=== PATIENT | male | born 1940 | race Caucasian/White ===

== ENCOUNTER 2016-07-08 06:31 | Inpatient (IN) | payer OTHER, MEDICARE ==
[~2016-07-08] VITALS: Ht 182.9 cm; Wt 108.9 kg
[~2016-07-08 06:31] MED LIST: ACETAMINOPHEN325 M3 PO; ADVAIR DISKUS 21 DSK INH; ADVAIR DISKUS1 UNIT INH; ALBUTEROL2.5 MG/3 M INH; ASPIR 8181 MG PO; ASPIRIN81 M4 PO; ATORVASTATIN CA40 MG PO; CAPTOPRIL12.5 MG PO; CARVEDILOL3.125 M1 PO; CLOPIDOGREL75 M1 PO; CLOPIDOGREL75 MG; COREG 6.256.25 MG PO; COREG3.125 MG PO; ENTRESTO 24 MG1 EACH PO; FLOMAX(MONOGRA0.4 MG PO; FLOMAX0.4 M1 PO; FUROSEMIDE20 M1 PO; FUROSEMIDE40 MG PO; GABAPENTIN400 MG PO; HYDROCODONE BIT1 T26 PO; IMDUR60 MG PO; ISOSORBIDE MONO60 MG PO; LASIX40 MG PO; LEVOTHYROXINE0.1 M1 PO; LEVOTHYROXINE0.1 MG PO; LIPITOR40 M1 PO; LISINOPRIL5 M1 PO; METOPROLOL TART50 MG PO; NEURONTIN800 M2 PO; NITROSTAT0.4 M1 SL; NITROSTAT0.4 MG SL; NORVASC 5MG TAB5 MG PO; PERCOCET 325 MG1 TA2 PO; PERCOCET 325 MG1 TA3 PO; PLAVIX 75MG TAB75 MG PO; PROAIR HFA8.5 GM INH; RANEXA 500MG500 MG PO; RANEXA500 M1 PO; SPIRIVA 18 MCG18 MCG INH; SPIRIVA18 MCG INH; SYMBICORT 160/41 PUF INH; TESSALON PERLE100 MG PO; VENTOLIN1 PUF INH
--- NOTE | 2016-07-08 06:36 | ED DYSPNEA/ASTHMA COMPLAINT ---
History of Present Illness General Chief Complaint: Dyspnea (COPD, CHF, Other) Stated Complaint: PT C/O SOB 02 SAT 86% Source: patient Exam Limitations: no limitations Vital Signs & Intake/Output Vital Signs & Intake/Output Vital Signs Date Time Temp Pulse Resp B/P B/P Pulse O2 O2 Flow FiO2 Mean Ox Delivery Rate 07/08 0851 98.2 69 20 108/60 94 Nasal 2.0L Cannula 07/08 0752 91 Nasal 0.5L Cannula 07/08 0726 98.7 69 20 110/62 94 Nasal 2.5L Cannula 07/08 0703 93 Nasal 2.0L Cannula 07/08 0652 97 Nasal 2.0L Cannula 07/08 0639 98.5 79 18 105/55 92 Nasal 2.0L Cannula Allergies Coded Allergies: NO KNOWN ALLERGIES (06/23/14) Reconcile Medications Acetaminophen 325 MG CAPSULE 1 CAP PO Q6 PRN PAIN (Reported) Albuterol Sulfate (Proair Hfa) 90 MCG HFA.AER.AD 2 PUF INH Q4 COPD Aspirin (Aspirin*) 81 MG TAB.CHEW 1 TAB PO DAILY heart (Reported) Atorvastatin Calcium (Lipitor) 40 MG TABLET 1 TAB PO DAILY cholesterol ( Reported) Budesonide/Formoterol Fumarate (Symbicort 160-4.5 Mcg Inhaler) 160 MCG-4.5 MCG/ ACTUATION HFA.AER.AD 2 PUF INH BID COPD (Reported) Carvedilol (Coreg) 3.125 MG TABLET 6.25 MG PO BID HEART Clopidogrel Bisulfate (Clopidogrel) 75 MG TABLET 1 TAB PO DAILY BLOOD THINNER (Reported) Furosemide 20 MG TABLET 20 MG PO Q48 fluid overload Gabapentin (Neurontin) 800 MG TABLET 1 TAB PO TID BACK PAIN (Reported) Isosorbide Mononitrate (Isosorbide Mononitrate ER) 60 MG TAB.ER.24H 1 TAB PO DAILY (Reported) Levothyroxine Sodium 0.1 MG TAB 1 TAB PO DAILY THYROID HEALTH (Reported) Ranolazine (Ranexa) 500 MG TAB.ER.12H 1 TAB PO BID heart (Reported) Tamsulosin HCl (Flomax) 0.4 MG CAP.ER.24H 1 CAP PO QHS prostate Please take at bed time to avoid low blood pressure during the day. Tiotropium [place] (Spiriva) 18 MCG CAP.W.DEV 1 CAP INH DAILY COPD (Reported) Triage Nurses Notes Reviewed? yes Onset: Gradual Duration: hour(s): Timing: recent history Severity: moderate Activities at Onset: none Prior Episodes/Possible Cause: occasional episodes Modifying Factors: Improves With: rest. Associated Symptoms: cough, wheezing HPI: 75-year-old gentleman with a past medical history of an ischemic cardiomyopathy (LVEF 45%) coronary artery disease status post bypass surgery with known vein graft occlusion, peripheral vascular disease, aortic aneurysm status post repair , COPD, chronic CHF secondary to systolic dysfunction as well as an AICD implanted, presents with dyspnea since last night. He notes cough, productive of yellow phlegm, wheezing, but no fever, chest pain, chills, lower extremity edema. He notes breathlessness and difficulty ambulating due to his dyspnea. (AD LUND,KAMALA Savage) Past History Medical History Any Pertinent Medical History? see below for history Neurological: NONE EENT: NONE Cardiovascular: CARDIAC STENTS CABG CAROTID ARTERY BYPASS DEFIBRILLATOR Respiratory: COPD Gastrointestinal: NONE Hepatic: NONE Renal: NONE Musculoskeletal: NONE Psychiatric: NONE Endocrine: hypothyroidism Blood Disorders: DVT Cancer(s): NONE CRANE ENGINEER/Reproductive: NONE History of MRSA: No History of VRE: No History of CDIFF: No Pneumonia Vaccine: 09/29/13 Influenza Vaccine: 12/20/15 Surgical History Surgical History: CABG, CAROTID ARTECTOMY nerve thermoablation to reduce back pain Psychosocial History Who do you live with Spouse Services at Home None What is your primary language Macedonian Family History Hx Contributory? No (KAMALA ECHEVARRIA MD) Review of Systems Review of Systems Constitutional: Reports: no symptoms. EENTM: Reports: no symptoms. Respiratory: Reports: no symptoms. Cardiovascular: Reports: no symptoms. GI: Reports: no symptoms. Genitourinary: Reports: no symptoms. Musculoskeletal: Reports: no symptoms. Skin: Reports: no symptoms. Neurological/Psychological: Reports: no symptoms. Hematologic/Endocrine: Reports: no symptoms. Immunologic/Allergic: Reports: no symptoms. All Other Systems: Reviewed and Negative (KAMALA ECHEVARRIA MD) Physical Exam Physical Exam General Appearance: well developed/nourished, mild distress Head: atraumatic, normal appearance Eyes: Bilateral: normal appearance. Ears, Nose, Throat: normal pharynx, normal ENT inspection, perioral cyanosis Neck: normal inspection, supple, full range of motion Respiratory: chest non-tender, wheezing Cardiovascular: regular rate/rhythm Gastrointestinal: normal bowel sounds, soft, non-tender, no organomegaly Extremities: normal inspection, normal capillary refill Skin: distal cyanosis Core Measures ACS in differential dx? No Severe Sepsis Present: No Septic Shock Present: No (AD LUND,KAMALA Savage) Progress Differential Diagnosis: asthma, AMI, bronchitis, CHF, COPD, pneumonia Plan of Care: Orders Procedure Date/time Status Heart Healthy Diet 07/08 L Active BLOOD CULTURE 07/08 644 Active BLOOD CULTURE 07/08 640 Active TROPONIN LEVEL 07/08 633 Complete COMPREHENSIVE METABOLIC PANEL 07/08 633 Complete CBC WITHOUT DIFFERENTIAL 07/08 633 Complete B-TYPE NATRIURETIC PEP (BNP) 07/08 633 Complete EKG 07/08 633 Active Laboratory Tests 07/08/16 0640: Anion Gap 11, Estimated GFR 40 L, BUN/Creatinine Ratio 14.1, Glucose 141 H, Calcium 9.0, Total Bilirubin 0.6, AST 15 L, ALT 27, Alkaline Phosphatase 89, Troponin I 0.01, Jvv-L-[id number] Pept 1560 H, Total Protein 6.8, Albumin 3.9, Globulin 2.9, Albumin/Globulin Ratio 1.3, CBC w Diff NO MAN DIFF REQ, RBC 3.90 L, MCV 100.8 H, MCH 33.1 H, RDW 15.4 H, MPV 7.3 L, Gran % 79.5 H, Lymphocytes % 9.4 L, Monocytes % 7.4, Eosinophils % 2.7, Basophils % 1.0, Absolute Granulocytes 6.4, Absolute Lymphocytes 0.8 L, Absolute Monocytes 0.6, Absolute Eosinophils 0.2, Absolute Basophils 0.1, PUBS MCHC 32.9 L Microbiology 07/08 644 BLOOD: Blood Culture - RECD 07/09 639 BLOOD: Blood Culture - RECD Diagnostic Imaging: Viewed by Me: Radiology Read. Discussed w/RAD: Radiology Read. Initial ED EKG: non specific conduction delay... no acute changes from prior Hand-Off Endorsed To: KAVON BUCKLEY MD Endorsed Time: 0700 Pending: labs, Xray (AD LUND,KAMALA Savage) CXR Impression: PATIENT: EMILY FRANCO PRESENT AGE: 75 PATIENT ACCOUNT NO: [id number] : 42 LOCATION: [facility] ORDERING PHYSICIAN: KAMALA ECHEVARRIA MD SERVICE DATE: 07/08/16 EXAM TYPE: RAD - XRY-PORTABLE CHEST XRAY EXAMINATION: XR PORTABLE CHEST CLINICAL INFORMATION: Dyspnea. Hypoxia. COMPARISON: Chest radiograph 12/16/2015. TECHNIQUE: Portable AP upright view of the chest was obtained. FINDINGS: The position of the left chest AICD is unchanged. Lung volumes are low. The cardiac silhouette is enlarged which may be related to lung underexpansion and AP technique. There is bilateral hilar vascular engorgement. No overt interstitial or airspace edema. There are chronic changes of a median sternotomy. Upper mediastinal contours are unremarkable. No acute osseous finding. IMPRESSION: Prominent cardiac silhouette and hilar vascular engorgement. No evidence of overt edema. DICTATED BY: TOM CARTWRIGHT MD DATE/TIME DICTATED:07/08/16699 STENOCAPTIONER:CAROL ANN DATE/TIME TRANSCRIBED:07/08/16699 CONFIDENTIAL, DO NOT COPY WITHOUT APPROPRIATE AUTHORIZATION. <Electronically signed in Other Vendor System> SIGNED BY: TOM CARTWRIGHT MD 07/08/16705 Comments: 07/08/2016 7:31:15 AM patient signed out to me by Dr. Echevarria at shift exchange engineer. 07:44 pt feels better and appears comfortable. lungs: bs diminished, no wheezes or rales. o2 sat 96% on 2lpm. weaned to 0.5 lpm with o2 sat stable. neb ordered. question need to admit. will reeval. 07/08/2016 8:30:29 AM patient's oxygen saturation dropped to 88% at rest on 0.5 L /m. I've increased him to 2 L with normalization O2 saturation. Do not feel this patient is capable of returning home at this time given his hypoxia. (MARCIO LUND,KAVON Glover) Departure Departure Disposition: STILL A PATIENT Condition: Stable Clinical Impression Primary Impression: COPD exacerbation Referrals: YAMILKA CISNEROS MD (PCP/Family) Departure Forms: Customer Survey General Discharge Information (AD LUND,KAMALA Savage) Admission Note Spoke With: MODESTO MENDEZ M.D Documentation of Exam: Documentation of any treatments & extenuating circumstances including Concerns Regarding Discharge (functional status, medication knowledge or non-compliance, living conditions, etc.) that warrant an admission rather than observation: Patient has a history of COPD and presents with hypoxia and respiratory distress. Despite nebulizer treatments he still requires oxygen supplementation to maintain normal oxygen saturations. He does not have home oxygen therapy at this time. Given his hypoxia and dyspnea I do not feel he is a good candidate for outpatient management. Compliance with outpatient treatment could worsen his hypoxia leading to chest pain and syncope, cardiac ischemia and respiratory arrest. Feel he requires treatment with repeated bronchodilators, IV steroids and oxygen supplementation. Pulmonary consultation should be considered. This patient's advanced age and medical comorbidities I feel his treatment and recovery will likely be prolonged and complicated, requiring a multiple day hospitalization. (MARCIO LUND,KAVON Glover) Critical Care Note Critical Care Note Critical Care Time: 30-74 min (AD LUND,KAMALA Savage)
--- NOTE | 2016-07-08 06:39 | NUR ---
TRIAGE: PATIENT TO ER FROM HOME REPORTS "FEELING TIRED AND WEAK," HX COPD, O2:86% RA, REPORTS "I DON'T NEED ANY OXYGEN BUT I AM CLOSE TO IT MY DOCTOR SAID." PATIENT REPORTS +EXERTIONAL SOB TONIGHT AND AT BASELINE. PRODUCTIVE COUGH W/ CLEAR / YELLOW PRODUCTION. DENIES ANY CP. PLACED ON 2LC, O2:91% W/ 2LNC. MD DUONG TO BEDSIDE FOR EVAL DURING TRIAGE.
--- NOTE | 2016-07-08 06:40 | NUR ---
IV EST #20 RIGHT HAND BY CHRISTIAN LIU. BLOODWORK OBTAINED AND SENT TO LAB (LAV, SST, BLUE, HAMMONDS, FIRST SET OF BLOOD CULTURES) BY CHRISTIAN LIU. PER MD DUONG DURING TRIAGE, POC: ADMIT TO HOSPITAL FOR COPD EXACERBATION.
--- NOTE | 2016-07-08 06:45 | NUR ---
SECOND SET BLOOD CULTURES OBTAINED AND SENT TO LAB.
[2016-07-08] MEDS ORDERED: ISOSORBIDE MONO60 M1 PO (06:49)
[2016-07-08] MEDS ORDERED: SYMBICORT 16010.2 GM INH (06:50)
[2016-07-08] MEDS ORDERED: NEURONTIN800 M2 PO (06:51)
--- NOTE | 2016-07-08 06:52 | NUR ---
RESP TX IN PROGRESS. EKG AND CHEST XRAY COMPLETE.
[2016-07-08 06:53] LABS: ABSOLUTE BASOPHIL COUNT 0.1 /CUMM (0.0-0.2); ABSOLUTE EOSINOPHIL COUNT 0.2 /CUMM (0.0-0.7); ABSOLUTE GRANULOCYTE CT 6.4 /CUMM (1.4-6.5); ABSOLUTE LYMPH COUNT 0.8 /CUMM (1.2-3.4); ABSOLUTE MONOCYTE COUNT 0.6 /CUMM (0.10-0.60); EOSINOPHIL % 2.7 % (0-5); GRANULOCYTE % 79.5 % (42.2-75.2); HEMATOCRIT 39.3 % (42-52); MEAN CORPUSCULAR HGB 33.1 PG (27.0-31.0); MEAN CORPUSCULAR HGB CONC 32.9 G/DL (33.0-37.0); MEAN CORPUSCULAR VOLUME 100.8 FL (80.0-94.0); MEAN PLATELET VOLUME 7.3 FL (7.4-10.4); PLATELET COUNT 161 /CUMM (130-400); RBC DISTRIBUTION WIDTH 15.4 % (11.5-14.5)
--- NOTE | 2016-07-08 07:01 | NUR ---
PT MEDICATED WITH 125MG SOLUMEDROL AND ROCEPHIN INFUSING PER EMAR
--- NOTE | 2016-07-08 07:06 | RADIOLOGY REPORT ---
EXAMINATION: XR PORTABLE CHEST CLINICAL INFORMATION: Dyspnea. Hypoxia. COMPARISON: Chest radiograph 12/16/2015. TECHNIQUE: Portable AP upright view of the chest was obtained. FINDINGS: The position of the left chest AICD is unchanged. Lung volumes are low. The cardiac silhouette is enlarged which may be related to lung underexpansion and AP technique. There is bilateral hilar vascular engorgement. No overt interstitial or airspace edema. There are chronic changes of a median sternotomy. Upper mediastinal contours are unremarkable. No acute osseous finding. IMPRESSION: Prominent cardiac silhouette and hilar vascular engorgement. No evidence of overt edema.
--- NOTE | 2016-07-08 07:10 | NUR ---
ASSUMED CARE, SITTING UP ON STRETCHER, AWAKE, ALERT. PT IS ON 2.5L NC, SATS 94%. PT HAS NO PAIN/CHEST PAIN. VSS. AWAITING POC. Informed waiting has been performed.
--- NOTE | 2016-07-08 07:30 | NUR ---
CALLED FOR BREAKFAST TRAY.
--- NOTE | 2016-07-08 07:49 | NUR ---
RT AT BEDSIDE FOR NEB.
--- NOTE | 2016-07-08 08:28 | NUR ---
RE-CALLED FOR BREAKFAST TRAY.
--- NOTE | 2016-07-08 08:55 | NUR ---
PT MEDICATED FOR PAIN (SEE MAR)
--- NOTE | 2016-07-08 09:44 | NUR ---
PLAN IS FOR ADMISSION. RESTING COMFORTABLY. OFFERS NO COMPLAINTS. DENIES ANY PAIN. REMAINS ON 2.5L NC, SATS 96-100%. Informed waiting has been performed.
--- NOTE | 2016-07-08 10:18 | NUR ---
HOUSESTAFF IN FOR EVAL.
--- NOTE | 2016-07-08 10:54 | NUR ---
bed assignment [id number]
--- NOTE | 2016-07-08 11:21 | NUR ---
REPORT TO ED LIU ON 2NA. TRANSPORT CALLED.
--- NOTE | 2016-07-08 11:42 | NUR ---
PT TO FLOOR VIA W/C WITH TRANSPORT. ALL PAPERWORK AND BELONGINGS SENT WITH PT. CLINICAL STATUS UNCHANGED.
--- NOTE | 2016-07-08 11:50 | NUR ---
PT ARRIVED TO FLOOR VIA WHEELCHAIR, AO, 2.5L NC, OOB INDEPENDENTLY, IV IN PLACE, NO C/O PAIN, VSS, ADMISSION COMPLETE, ORIENTED TO ROOM AND CALL LIGHT. WILL CONTINUE TO MONITOR.
[2016-07-08 12:30] VITALS: BP 122/62
--- NOTE | 2016-07-08 12:37 | History & Physical ---
GERARD LUND,MARY 07/08/16 1154: General Information and HPI MD Statement: I have seen and personally examined EMILY FRANCO JR and documented this H&P. The patient is a 75 year old M who presented with a patient stated chief complaint of shortness of breath[]. Source of Information: patient, old records Exam Limitations: no limitations History of Present Illness: 75 YO M with PMH of 60 years of smoking, 1PPD now down to 6 cigarettes per day, CAD, CABG (1988), ischemic cardiomyopathy, HTN, CHF (EF 40%) s/p AICD, hypothyroidism, PVD s/p aortic aneurysm repair, carotid endarterectomy who presented to ED this morning from home complaing of shortness of breath for the past few weeks. Reports cough with minimal expectoration of scant yellow sputum. Denies fevers, chills, sick contacts. Denies chest pain, palpitations, lightheadness. Denies any leg swelling, orthopnea or pnd. This morning while at home with his his pulse oximetry was reading in the 80's which prompted his to bring him to the hospital. Allergies/Medications Allergies: Coded Allergies: NO KNOWN ALLERGIES (06/23/14) Home Med list Acetaminophen 325 MG CAPSULE 1 CAP PO Q6 PRN PAIN (Reported) Albuterol Sulfate (Proair Hfa) 90 MCG HFA.AER.AD 2 PUF INH Q4 COPD Aspirin (Aspirin*) 81 MG TAB.CHEW 1 TAB PO DAILY heart (Reported) Atorvastatin Calcium (Lipitor) 40 MG TABLET 1 TAB PO DAILY cholesterol ( Reported) Budesonide/Formoterol Fumarate (Symbicort 160-4.5 Mcg Inhaler) 160 MCG-4.5 MCG/ ACTUATION HFA.AER.AD 2 PUF INH BID COPD (Reported) Carvedilol (Coreg) 3.125 MG TABLET 6.25 MG PO BID HEART Clopidogrel Bisulfate (Clopidogrel) 75 MG TABLET 1 TAB PO DAILY BLOOD THINNER (Reported) Furosemide 20 MG TABLET 20 MG PO Q48 fluid overload Gabapentin (Neurontin) 800 MG TABLET 1 TAB PO TID BACK PAIN (Reported) Isosorbide Mononitrate (Isosorbide Mononitrate ER) 60 MG TAB.ER.24H 1 TAB PO DAILY (Reported) Levothyroxine Sodium 0.1 MG TAB 1 TAB PO DAILY THYROID HEALTH (Reported) Ranolazine (Ranexa) 500 MG TAB.ER.12H 1 TAB PO BID heart (Reported) Tamsulosin HCl (Flomax) 0.4 MG CAP.ER.24H 1 CAP PO QHS prostate Please take at bed time to avoid low blood pressure during the day. Tiotropium [employer] (Spiriva) 18 MCG CAP.W.DEV 1 CAP INH DAILY COPD (Reported) Compliance With Home Meds: GOOD Past History Travel History Traveled to [place] past 21 day No Medical History Neurological: NONE EENT: NONE Cardiovascular: CARDIAC STENTS CABG CAROTID ARTERY BYPASS DEFIBRILLATOR Respiratory: COPD Gastrointestinal: NONE Hepatic: NONE Renal: NONE Musculoskeletal: NONE Psychiatric: NONE Endocrine: hypothyroidism Blood Disorders: DVT Cancer(s): NONE CHERRY DIPPER/Reproductive: NONE History of MRSA: No History of VRE: No History of CDIFF: No Pneumonia Vaccine: 09/29/13 Influenza Vaccine: 12/20/15 Surgical History Surgical History: CABG, CAROTID ARTECTOMY nerve thermoablation to reduce back pain ECHO Results (as available) Date of last Echo 01/17/17 EF% 40 Past Family/Social History Psychosocial History Where do you live? Home Who Do You Live With? spouse Services at Home: None Smoking Status: Current Everyday Smoker ETOH Use: occasional use Functional Ability ADLs Independent: dressing, eating, toileting, bathing. Ambulation: independent Employment History Employment Retired Profession/Employer [employer] Review of Systems Review of Systems Constitutional: Denies: chills, fever, malaise, weakness. Cardiovascular: Denies: chest pain, palpitations, peripheral edema. Respiratory: Reports: cough, short of breath, sputum production, wheezing. Denies: orthopnea. GI: Reports: no symptoms. Genitourinary: Reports: no symptoms. Musculoskeletal: Reports: no symptoms. Skin: Reports: no symptoms. Neurological/Psychological: Reports: no symptoms. All Other Systems: Reviewed and Negative Exam & Diagnostic Data Last 24 Hrs of Vital Signs/I&O Vital Signs Date Time Temp Pulse Resp B/P B/P Pulse O2 O2 Flow FiO2 Mean Ox Delivery Rate 07/08 1102 98.2 74 20 112/55 93 Nasal 2.5L Cannula 07/08 0851 98.2 69 20 108/60 94 Nasal 2.0L Cannula 07/08 0752 91 Nasal 0.5L Cannula 07/08 0726 98.7 69 20 110/62 94 Nasal 2.5L Cannula 07/08 0703 93 Nasal 2.0L Cannula 07/08 0652 97 Nasal 2.0L Cannula 07/08 0639 98.5 79 18 105/55 92 Nasal 2.0L Cannula Intake & Output 07/08 1600 07/08 0800 07/08 0000 Intake Total Output Total Balance Patient 240 lb Weight Weight Reported by Patient Measurement Method Physical Exam General Appearance Alert, Oriented X3, Cooperative, No Acute Distress Skin No Rashes, No Breakdown HEENT Atraumatic, PERRLA, EOMI, Mucous Membr. moist/pink Neck Supple, No JVD Cardiovascular Regular Rate, Normal S1, Normal S2, No Murmurs Lungs b/l wheeze Abdomen Normal Bowel Sounds, Soft, No Tenderness Neurological Normal Speech, Strength at 5/5 X4 Ext Extremities Normal Pulses, trace edema Diagnostic Data EKG Results SR 78, QTc 452 Unchanged nonspecific intraventricular delay CXR Results IMPRESSION: Prominent cardiac silhouette and hilar vascular engorgement. No evidence of overt edema. Assessment/Plan Assessment: 75 YO M with PMH of 60 years of smoking, 1PPD now down to 6 cigarettes per day, CAD, CABG (1988), ischemic cardiomyopathy, HTN, CHF (EF 40%) s/p AICD, hypothyroidism, PVD s/p aortic aneurysm repair, carotid endarterectomy who presented to ED this morning from home complaing of shortness of breath for the past few weeks. Found to be hypoxic in the field. He has started on treatment for his COPD and seems to be responding. Admit to General Medicine Will continue IV Solumedrol 40mg daily Monitor Oxygen saturations closely, keep O2 saturation >92% TRC with nebulizers recieved ceftriaxone and azithromycin in the ER, will hold off on further dosing continue symbicort inhalers education for smoking cessation If symptoms do not improve, pulmonology consultation, Sees Dr. Sprague Macrocytosis appears to be at baseline B12, 237, Folic Acid 9.4 Would check B12 levels CKD Appears to be at baseline Has f/u appointment with nephrology next week Hypothryoidism continue synthroid DVT ppx heparin sq As Ranked By This Provider Problem List: 1. Chronic kidney disease 2. Hypothyroidism 3. COPD exacerbation Core Measures/Miscellaneous Acute Coronary Syndrome ACS Diagnosis: No Cerebrovascular Accident CVA/TIA Diagnosis: No Congestive Heart Failure CHF Diagnosis: No Venous Thromboembolism VTE Risk Factors: Age > 40 No [facility] prophylaxis d/t: No contraindications No VTE Pharm Prophylaxis d/t: No contraindications VTE Diagnosis: No VTE Type: NONE VTE Confirmed by (Test): NONE Severe Sepsis Severe Sepsis Present: No Septic Shock Septic Shock Present: No Miscellaneous Documentation Attending Case Discussed With: MODESTO MENDEZ M.D Primary Care Physician: BLAYNE LUND,[facility] Patient sees these Specialists Pulmonology Cardiology Level of Patient Care: General Medicine RONN GAINES 07/08/16 1356: Attending MD Review Statement Attending Statement Attending MD Statement: examined this patient, discuss w/resident/PA/YELLOW PAGES SPACE SALESPERSON, agreed w/resident/PA/YELLOW PAGES SPACE SALESPERSON, discussed with family, reviewed EMR data (avail), discussed with nursing, discussed with case mgmt, reviewed images, amended to note Attending Assessment/Plan: 75 year old obese gentleman, current smoker, with past medical history significant for COPD, HTN, CAD s/p CABG with known vein graft occlusion, Ischemic CMP, chronic systolic CHF, s/p AICD and PPM, PVD s/p aortic aneurysm repair and femoral artery stent (2013), Right carotid endarterectomy, CKD stage 3 comes with shortness of breath and repsond to steroid treatment. ASSESSMENT 1. Acute on chronic respiratroy failure 2. COPD exacerbation 3. Morbid obesity BMI 32.5 4. Tobacco abuse 5. HTN 6. CAD s/p CABG 7. ischemic CMP 8. Chronic systolic CHF ef 35-40% compensated. 9. PVD s/p aortic aneursym repair and femoral stent, right carotid endareterctomy. 10. Chronic kidney disease stage 3. 11 Elevated BNP. PLAN admit to inpatient medical services start i/v abx, oxygen supplemetation , TRC, nebs , symbicort. i/v steroids 40 q12 serial cardiac enzymes , clinical signs suggestive of compensated Chf resume home meds. Lasix 20 daily. gi/dvt prophyalxis full code.
[2016-07-08 14:17] VITALS: BP 120/60
[2016-07-08 22:10] VITALS: BP 140/80
--- NOTE | 2016-07-08 22:15 | NUR ---
PT C/O HEARTBURN, CALL PLACED TO COVERAGE SPECIALIST RN TO MAKE AWARE, ORDER FOR TUMS PLACED AND GIVEN ORDERED. PT CONTINUES TO C/O HEARTBURN "INDIGESTION" AFTER TUMS GIVEN. 140/80 HR 74 RR 18 93% ON 2.5L DENIES SOB, DENIES CP, ASKING FOR ANOTHER TUMS "ITS FROM MY SUPPER I HAD TONIGHT, IT HAPPENS AT HOME TOO" CALL PLACED TO COVERAGE SPECIALIST RN TO MAKE AWARE, NO NEW ORDERS OF RIGHT NOW. WILL CONTINUE TO MONITOR
[2016-07-09 06:21] VITALS: BP 130/60
--- NOTE | 2016-07-09 07:45 | PN- Housestaff ---
DOUGLAS LUND,ISA.[facility] 07/09/16 0745: Subjective Follow-up For: COPD exacerbation Subjective: Afebrile, hemodynamically stable, no acute overnight every reported. WBCs increased from 8 to 12, but that's most likely secondary to steroid. Patient denies any other current active complaints Review of Systems Constitutional: Reports: no symptoms. Objective Last 24 Hrs of Vital Signs/I&O Vital Signs Date Time Temp Pulse Resp B/P B/P Pulse O2 O2 Flow FiO2 Mean Ox Delivery Rate 07/09 1331 98.3 80 20 132/66 92 07/09 1022 97.7 76 18 118/90 07/09 1021 97.7 76 18 118/90 07/09 1020 97.7 76 18 118/90 07/09 0800 90 Nasal 2.5L Cannula 07/09 0757 94 Nasal 2.0L Cannula 07/09 0621 97.9 87 20 130/60 93 Nasal 2.5L Cannula 07/09 0000 Nasal 2.5L Cannula 07/08 2210 98.3 81 20 140/80 90 Nasal Cannula 07/08 2052 140/80 07/08 205 140/80 07/08 2017 93 Nasal 2.0L Cannula Intake & Output 07/09 1600 07/09 0800 07/09 0000 Intake Total 870 200 Output Total 400 350 500 Balance 470 -150 -500 Intake, IV 270 Intake, Oral 600 200 Number 0 Bowel Movements Output, Urine 400 350 500 Physical Exam General Appearance: Alert, Oriented X3, Cooperative, No Acute Distress Skin: No Rashes HEENT: Atraumatic, PERRLA, EOMI, Mucous Membr. moist/pink Cardiovascular: Regular Rate, Normal S1, Normal S2, No Murmurs Lungs: wheezing over both lungs. Abdomen: Normal Bowel Sounds, Soft, No Tenderness Neurological: Normal Speech Extremities: No Clubbing, No Cyanosis, No Edema Current Medications: Current Medications Sig/Penny Start time Last Medication Dose Route Stop Time Status Admin Acetaminophen 325 MG Q6P PRN 07/08 1145 AC PO Albuterol Sulfate 3 ML EVERY 4 HRS/AWAKE 07/09 0800 AC 07/09 INH 1151 Albuterol Sulfate 3 ML EVERY 4 HRS/AWAKE .. 07/08 1404 DC 07/08 INH 07/09 0759 1408 Aspirin 81 MG DAILY 07/08 1134 AC 07/09 PO 1020 Atorvastatin Calcium 40 MG DAILY 07/08 1134 AC 07/09 PO 1021 Azithromycin 500 MG DAILY 07/08 1409 AC 07/09 Sodium Chloride 250 ML IV 1033 Budesonide/ 2 PUF BID 07/08 1137 AC 07/09 Formoterol Fumarate INH 1036 Calcium Carbonate 500 MG DAILY 07/08 2045 AC 07/08 PO 205 Carvedilol 6.25 MG BID 07/08 1137 AC 07/09 PO 1021 Clopidogrel Bisulfate 75 MG DAILY 07/08 1135 AC 07/09 PO 1021 Furosemide 20 MG Q48 07/10 1000 AC PO Gabapentin 800 MG Q12 07/08 2200 AC 07/09 PO 1021 Heparin Sodium 5,000 UNIT Q8 07/08 1400 AC 07/09 (Porcine) SC 1418 Isosorbide 60 MG DAILY 07/08 1137 AC 07/09 Mononitrate PO 1020 Levothyroxine Sodium 0.1 MG DAILY AC 07/08 1145 AC 07/09 PO 0558 Methylprednisolone 40 MG DAILY 07/09 1000 DC IV Methylprednisolone 40 MG Q12 07/09 1000 AC 07/09 IV 1027 Omeprazole 20 MG ONCE ONE 07/08 2215 DC 07/08 PO 07/08 2216 2220 Patient Medication 1 ED .STK-MED ONE 07/09 1349 VT Teaching ED 07/09 1350 Ranolazine 500 MG BID 07/08 1135 AC 07/09 PO 1022 Tamsulosin HCl 0.4 MG AT BEDTIME 07/08 2199 AC 07/08 PO 2052 Last 24 Hrs of Lab/Abimael Results Last 24 Hrs of Labs/Mics: Laboratory Tests 07/09/16 0615: Anion Gap 6, Estimated GFR 40 L, BUN/Creatinine Ratio 18.2, CBC w Diff NO MAN DIFF REQ, RBC 3.39 L, MCV 101.3 H, MCH 33.5 H, RDW 14.9 H, MPV 7.8, Gran % 91.0 H, Lymphocytes % 4.2 L, Monocytes % 4.8, Eosinophils % 0, Basophils % 0 L, Absolute Granulocytes 11.2 H, Absolute Lymphocytes 0.5 L, Absolute Monocytes 0.6, Absolute Eosinophils 0, Absolute Basophils 0, PUBS MCHC 33.0 07/08/16 2040: Troponin I < 0.01 07/08/16 1715: Troponin I < 0.01 Assessment/Plan Assessment: 75/M with PMH of 60 years of smoking, 1PPD now down to 6 cigarettes per day, CAD , CABG (1988), ischemic cardiomyopathy, HTN, CHF (EF 40%) s/p AICD, hypothyroidism, PVD s/p aortic aneurysm repair, carotid endarterectomy who presented to ED yesterday complaing of shortness of breath for the past few weeks. Found to be hypoxic in the field. #COPD exacerbation * Continue IV Solumedrol 40mg every 12 * Continue azithromycin IV to finish 5 days. * Monitor Oxygen saturations closely, keep O2 saturation >92% * TRC with nebulizers * Counseled about smoking cessation #CKD At baseline #Hypothryoidism * continue synthroid #Continue all other home meds Regular diet DVT ppx heparin sq DNR/DNI Problem List: 1. COPD exacerbation Pain Ratin Pain Location: na Pain Goal: Remain pain free Pain Plan: NA Tomorrow's Labs & Rationales: CBC RONN GAINES 07/09/16 1118: Attending MD Review Statement Attending Statement Attending MD Statement: examined this patient, discuss w/resident/PA/BARREL RIFLER, agreed w/resident/PA/BARREL RIFLER, discussed with family, reviewed EMR data (avail), discussed with nursing, discussed with case mgmt, reviewed images, amended to note Attending Assessment/Plan: 75 year old obese gentleman, current smoker, with past medical history significant for COPD, HTN, CAD s/p CABG with known vein graft occlusion, Ischemic CMP, chronic systolic CHF, s/p AICD and PPM, PVD s/p aortic aneurysm repair and femoral artery stent (2013), Right carotid endarterectomy, CKD stage 3 comes with shortness of breath and repsond to steroid treatment. ASSESSMENT 1. Acute on chronic respiratroy failure 2. COPD exacerbation 3. Morbid obesity BMI 32.5 4. Tobacco abuse 5. HTN 6. CAD s/p CABG 7. ischemic CMP 8. Chronic systolic CHF ef 35-40% compensated. 9. PVD s/p aortic aneursym repair and femoral stent, right carotid endareterctomy. 10. Chronic kidney disease stage 3. 11 Elevated BNP. 12 Probable PATTI PLAN admit to inpatient medical services c/w i/v abx, oxygen supplemetation , TRC, nebs , symbicort. i/v steroids 40 q12 and taper serial cardiac enzymes , clinical signs suggestive of compensated Chf resume home meds. Lasix 20 daily. trial of cpap at night gi/dvt prophyalxis full code. Patient gives history that CPAP machine would come this week at home.
[2016-07-09 08:06] LABS: ABSOLUTE BASOPHIL COUNT 0 /CUMM (0.0-0.2); ABSOLUTE EOSINOPHIL COUNT 0 /CUMM (0.0-0.7); ABSOLUTE GRANULOCYTE CT 11.2 /CUMM (1.4-6.5); ABSOLUTE LYMPH COUNT 0.5 /CUMM (1.2-3.4); ABSOLUTE MONOCYTE COUNT 0.6 /CUMM (0.10-0.60); BASOPHIL % 0 % (0.0-2.0); EOSINOPHIL % 0 % (0-5); MEAN CORPUSCULAR HGB 33.5 PG (27.0-31.0); MEAN CORPUSCULAR VOLUME 101.3 FL (80.0-94.0); MEAN PLATELET VOLUME 7.8 FL (7.4-10.4); RBC DISTRIBUTION WIDTH 14.9 % (11.5-14.5); RED BLOOD CELL CT 3.39 /CUMM (4.70-6.10)
[2016-07-09 08:43] LABS: HEMATOCRIT 34.3 % (42-52); PLATELET COUNT 152 /CUMM (130-400); WHITE BLOOD CELL COUNT 12.3 /CUMM (4.8-10.8)
[2016-07-09 13:31] VITALS: BP 132/66
[2016-07-09] MEDS ORDERED: PREDNISONE20 M1 PO (14:56)
--- NOTE | 2016-07-09 14:57 | Patient Discharge Instructions ---
Discharge Instructions General Discharge Information You were seen/treated for: COPD EXACERBATION Special Instructions: PLEASE F/U WITH YOUR PCP IN1 WEEK PLEASE F/U WITH DR MCNALLY IN1 WEEK Acute Coronary Syndrome Inclusion Criteria At DC or during hospital stay patient has or had the following: ACS DIAGNOSIS No Discharge Core Measures Meds if any: Prescribed or Continued at Discharge Meds if any: NOT Prescribed or Continued at Discharge Congestive Heart Failure Inclusion Criteria At DC or during hospital stay patient has or had the following: CHF DIAGNOSIS No Discharge Core Measures Meds if any: Prescribed or Continued at Discharge Meds if any: NOT Prescribed or Continued at Discharge Cerebrovascular accident Inclusion Criteria At DC or during hospital stay patient has or had the following: CVA/TIA Diagnosis No Discharge Core Measures Meds if any: Prescribed or Continued at Discharge Meds if any: NOT Prescribed or Continued at Discharge Venous thromboembolism Inclusion Criteria VTE Diagnosis No VTE Type NONE VTE Confirmed by (Test) NONE Discharge Core Measures - Per Current guidelines, there needs to be overlap - treatment for the first 5 days of Warfarin therapy. - If discharged on Warfarin prior to 5 days of - overlap therapy, the patient will need to be - assessed for post discharge needs including - *Post discharge parental anticoagulation - *Warfarin and/or parental anticoagulation education - *Follow up date to check INR post discharge At least 5 days overlap therapy as Inpatient No Meds if any: Prescribed or Continued at Discharge Note: Overlap Therapy is Warfarin and Anticoagulant Meds if any: NOT Prescribed or Continued at Discharge
[2016-07-09] MEDS ORDERED: ZITHROMAX250 M2 PO (14:58)
[2016-07-09 23:20] VITALS: BP 122/80
--- NOTE | 2016-07-10 05:19 | NUR ---
SENT REQUEST TO [employer] FOR BOWEL REGIMEN. PT HAS NOT HAS A MOVEMENT IN FOUR DAYS.
[2016-07-10 07:10] VITALS: BP 130/68
--- NOTE | 2016-07-10 12:11 | PN- Housestaff ---
SHARI LUND,HERRERA 07/10/16 1210: Subjective Follow-up For: COPD exacerbation Subjective: Separation at bedside. He was sitting up and on 2.5 L nasal cannula. Please see that he felt better than yesterday however was still getting short of breath with minimal exertion. Patient sounds diffusely wheezy on physical exam. We will resume IV steroids and continue to monitor. Review of Systems Constitutional: Denies: diaphoresis, malaise, weakness. EENTM: Reports: no symptoms. Cardiovascular: Reports: no symptoms. Respiratory: Reports: cough, short of breath, sputum production, wheezing. Gastrointestinal: Reports: no symptoms. Genitourinary: Reports: no symptoms. Musculoskeletal: Reports: no symptoms. Skin: Reports: no symptoms. Objective Last 24 Hrs of Vital Signs/I&O Vital Signs Date Time Temp Pulse Resp B/P B/P Pulse O2 O2 Flow FiO2 Mean Ox Delivery Rate 07/10 1030 86 130/68 07/10 1030 86 130/68 07/10 1030 86 130/68 07/10 0820 96 Nasal 2.0L Cannula 07/10 0800 94 Nasal 2.5L Cannula 07/10 0710 98.1 86 24 130/68 92 Nasal 2.5L Cannula 07/10 0000 90 Nasal 2.5L Cannula 07/09 2320 97.1 83 20 122/80 90 Nasal Cannula 07/09 2142 132/66 07/09 2142 132/66 07/09 1628 93 Nasal 2.0L Cannula 07/09 1600 93 Nasal 2.5L Cannula 07/09 1331 98.3 80 20 132/66 92 Intake & Output 07/10 1600 07/10 0800 07/10 0000 Intake Total 200 300 Output Total 1375 Balance -1175 300 Intake, Oral 200 300 Output, Urine 1375 Physical Exam General Appearance: Alert, Oriented X3, Cooperative, No Acute Distress HEENT: Atraumatic, PERRLA, EOMI Neck: Supple Cardiovascular: Regular Rate, Normal S1, Normal S2, No Murmurs Lungs: diffuse end-expiratory wheezes. Abdomen: Soft, No Tenderness Neurological: Normal Speech Assessment/Plan Assessment: 75/M with PMH of 60 years of smoking, 1PPD now down to 6 cigarettes per day, CAD , CABG (1988), ischemic cardiomyopathy, HTN, CHF (EF 40%) s/p AICD, hypothyroidism, PVD s/p aortic aneurysm repair, carotid endarterectomy who presented to ED yesterday complaing of shortness of breath for the past few weeks. Found to be hypoxic in the field. #COPD exacerbation * Pt on PO steroids 40mg--> Will escalate back to IV solumedrol. 20mg NOW and 40mg later tonight. Reassess tonight. * Continue azithromycin IV to finish 5 days. * Monitor Oxygen saturations closely, keep O2 saturation >92% * TRC with nebulizers * Counseled about smoking cessation #CKD At baseline #Hypothryoidism * continue synthroid #Continue all other home meds Regular diet DVT ppx heparin sq DNR/DNI Problem List: 1. COPD exacerbation Pain Ratin Pain Location: none Pain Goal: Remain pain free Pain Plan: none Tomorrow's Labs & Rationales: cbc bep PETER LUND,JESUS 07/10/16 1212: Attending MD Review Statement Attending Statement Attending MD Statement: examined this patient, discuss w/resident/PA/[employer]QUIPMENT MECHANIC, agreed w/resident/PA/COMM[employer] EQUIPMENT MECHANIC, discussed with family, reviewed EMR data (avail), discussed with nursing, discussed with case mgmt, reviewed images, amended to note Attending Assessment/Plan: Patient resting in bed. He is in mild distress. Wasn't able to sleep last night because of cough and discomfort. He still desaturating on oxygen on ambulation . Still wheezing on exam. Leukocytosis noted, which is likely secondary to steroids. Patient was switched to by mouth steroids. Recommendations: 1. Continue Zithromax. 2. Follow-up cultures 3. Switch to IV steroids 40 mg twice a day, we will reevaluate tomorrow. 4. Continue with TRC nebs, oxygen by nasal cannula.
[2016-07-10 15:59] VITALS: BP 110/70
[2016-07-10 22:43] VITALS: BP 120/60
[2016-07-11 06:29] VITALS: BP 118/64
[2016-07-11 09:09] LABS: ABSOLUTE BASOPHIL COUNT 0 /CUMM (0.0-0.2); ABSOLUTE EOSINOPHIL COUNT 0 /CUMM (0.0-0.7); ABSOLUTE GRANULOCYTE CT 10.8 /CUMM (1.4-6.5); ABSOLUTE LYMPH COUNT 0.4 /CUMM (1.2-3.4); ABSOLUTE MONOCYTE COUNT 0.3 /CUMM (0.10-0.60); BASOPHIL % 0.2 % (0.0-2.0); EOSINOPHIL % 0.1 % (0-5); HEMATOCRIT 35.7 % (42-52); MEAN CORPUSCULAR HGB 33.6 PG (27.0-31.0); MEAN CORPUSCULAR HGB CONC 33.2 G/DL (33.0-37.0); MEAN CORPUSCULAR VOLUME 101.2 FL (80.0-94.0); MEAN PLATELET VOLUME 7.8 FL (7.4-10.4); PLATELET COUNT 154 /CUMM (130-400); RBC DISTRIBUTION WIDTH 15.5 % (11.5-14.5); RED BLOOD CELL CT 3.53 /CUMM (4.70-6.10); WHITE BLOOD CELL COUNT 11.5 /CUMM (4.8-10.8)
--- NOTE | 2016-07-11 09:52 | NUR ---
PT SITTING ON RA O2 @ 91%. AMBULATED PATIENT AROUND UNIT ON RA- O2 @ 81%. O2 PLACED ON TILL PATIENT O2@ 91% ON RA. MD COLE NOTIFIED. WILL CONTINUE TO MONITOR.
--- NOTE | 2016-07-11 09:56 | PN- Housestaff ---
See Addendum Subjective Follow-up For: COPD exacerbation Subjective: Afebrile, hemodynamically stable, no acute overnight every reported. Patient denies any other current active complaints. He is saturating lower 90s on room air at rest but dropped to 81% with ambulation. Review of Systems Constitutional: Reports: no symptoms. Objective Last 24 Hrs of Vital Signs/I&O Vital Signs Date Time Temp Pulse Resp B/P B/P Pulse O2 O2 Flow FiO2 Mean Ox Delivery Rate 07/11 0930 90 118/64 07/11 0930 90 118/64 07/11 0930 90 118/64 07/11 0846 95 Nasal 2.0L Cannula 07/11 0800 Nasal 2.0L Cannula 07/11 0629 98.2 90 22 118/64 91 Nasal Cannula 07/11 0000 92 Nasal 2.0L Cannula 07/10 2243 97.6 82 22 120/60 92 Nasal 2.0L Cannula 07/10 2147 82 120/60 07/10 1635 90 Nasal 2.0L Cannula 07/10 1559 97.6 84 22 110/70 93 07/10 1232 95 Nasal 2.0L Cannula Intake & Output 07/11 1600 07/11 0800 07/11 0000 Intake Total 130 490 Output Total 500 1100 Balance -370 -610 Intake, IV 10 10 Intake, Oral 120 480 Number 1 Bowel Movements Output, Urine 500 1100 Physical Exam General Appearance: Alert, Oriented X3, Cooperative, No Acute Distress HEENT: Atraumatic, PERRLA, EOMI, Mucous Membr. moist/pink Cardiovascular: Regular Rate, Normal S1, Normal S2, No Murmurs Lungs: diminished air entry over both lungs, wheezing bilaterally but more in the right side Abdomen: Normal Bowel Sounds, Soft, No Tenderness Extremities: No Clubbing, No Cyanosis, No Edema Current Medications: Current Medications Sig/Penny Start time Last Medication Dose Route Stop Time Status Admin Acetaminophen 325 MG Q6P PRN 07/08 1145 AC PO Albuterol Sulfate 3 ML EVERY 4 HRS/AWAKE 07/09 0800 AC 07/11 INH 0845 Aspirin 81 MG DAILY 07/08 1134 AC 07/11 PO 0930 Atorvastatin Calcium 40 MG DAILY 07/08 1134 AC 07/11 PO 0930 Azithromycin 500 MG DAILY 07/08 1409 AC 07/11 Sodium Chloride 250 ML IV 0930 Budesonide/ 2 PUF BID 07/08 1137 AC 07/11 Formoterol Fumarate INH 0928 Calcium Carbonate 500 MG DAILY 07/08 2045 AC 07/11 PO 0929 Carvedilol 6.25 MG BID 07/08 1137 AC 07/11 PO 0930 Clopidogrel Bisulfate 75 MG DAILY 07/08 1135 AC 07/11 PO 0930 Furosemide 20 MG Q48 07/10 1000 AC 07/10 PO 1029 Gabapentin 800 MG Q12 07/08 2200 AC 07/11 PO 0930 Guaifenesin 600 MG Q12 07/10 1037 AC 07/11 PO 0930 Heparin Sodium 5,000 UNIT Q8 07/08 1400 AC 07/11 (Porcine) SC 0622 Isosorbide 60 MG DAILY 07/08 1137 AC 07/11 Mononitrate PO 0930 Levothyroxine Sodium 0.1 MG DAILY AC 07/08 1145 AC 07/11 PO 0622 Methylprednisolone 40 MG Q12 07/10 2200 AC 07/11 IV 0929 Methylprednisolone 20 MG ONCE ONE 07/10 1230 DC 07/10 IV 07/10 1231 1503 Prednisone 40 MG DAILY 07/10 1000 DC 07/10 PO 1029 Ranolazine 500 MG BID 07/08 1135 AC 07/11 PO 0930 Tamsulosin HCl 0.4 MG AT BEDTIME 07/08 220 AC 07/10 PO 2148 Last 24 Hrs of Lab/Abimael Results Last 24 Hrs of Labs/Mics: Laboratory Tests 07/11/16 0735: Anion Gap 6, Estimated GFR 43 L, BUN/Creatinine Ratio 21.9, CBC w Diff NO MAN DIFF REQ, RBC 3.53 L, MCV 101.2 H, MCH 33.6 H, RDW 15.5 H, MPV 7.8, Gran % 93.8 H, Lymphocytes % 3.1 L, Monocytes % 2.8, Eosinophils % 0.1, Basophils % 0.2, Absolute Granulocytes 10.8 H, Absolute Lymphocytes 0.4 L, Absolute Monocytes 0.3, Absolute Eosinophils 0, Absolute Basophils 0, PUBS MCHC 33.2 Assessment/Plan Assessment: 75/M with PMH of 60 years of smoking, 1PPD now down to 6 cigarettes per day, CAD , CABG (1988), ischemic cardiomyopathy, HTN, CHF (EF 40%) s/p AICD, hypothyroidism, PVD s/p aortic aneurysm repair, carotid endarterectomy who presented to ED yesterday complaing of shortness of breath for the past few weeks. Found to be hypoxic in the field. #COPD exacerbation Patient saturation drop to 80% with ambulation. * Continue IV Solumedrol 40 mg twice a day * Continue azithromycin IV to finish 5 days(tomorrow is the last day). * Monitor Oxygen saturations closely, keep O2 saturation >92% * TRC with nebulizers. * Recheck oxygen saturation with ambulation, patient may need home oxygen #CKD At baseline #Hypothryoidism * continue synthroid #Continue all other home meds Regular diet DVT ppx heparin sq DNR/DNI Problem List: 1. COPD exacerbation Pain Ratin Pain Location: NA Pain Goal: Remain pain free Pain Plan: See A&P Tomorrow's Labs & Rationales: CBC
[2016-07-11 10:07] LABS: GRANULOCYTE % 93.8 % (42.2-75.2)
[2016-07-11 15:53] VITALS: BP 140/70
[2016-07-11 22:51] VITALS: BP 124/60
[2016-07-12 06:50] VITALS: BP 124/70
[2016-07-12 08:06] LABS: ABSOLUTE BASOPHIL COUNT 0 /CUMM (0.0-0.2); ABSOLUTE EOSINOPHIL COUNT 0 /CUMM (0.0-0.7); ABSOLUTE GRANULOCYTE CT 8.3 /CUMM (1.4-6.5); ABSOLUTE LYMPH COUNT 0.4 /CUMM (1.2-3.4); ABSOLUTE MONOCYTE COUNT 0.4 /CUMM (0.10-0.60); BASOPHIL % 0 % (0.0-2.0); EOSINOPHIL % 0 % (0-5); GRANULOCYTE % 91.5 % (42.2-75.2); HEMATOCRIT 35.6 % (42-52); MEAN CORPUSCULAR HGB 33.4 PG (27.0-31.0); MEAN CORPUSCULAR HGB CONC 32.9 G/DL (33.0-37.0); MEAN CORPUSCULAR VOLUME 101.5 FL (80.0-94.0); MEAN PLATELET VOLUME 7.9 FL (7.4-10.4); PLATELET COUNT 148 /CUMM (130-400); RBC DISTRIBUTION WIDTH 15.4 % (11.5-14.5); RED BLOOD CELL CT 3.51 /CUMM (4.70-6.10)
[2016-07-12 09:14] LABS: WHITE BLOOD CELL COUNT 9.1 /CUMM (4.8-10.8)
[2016-07-12] MEDS ORDERED: PREDNISONE20 M1 PO (09:56)
--- NOTE | 2016-07-12 11:19 | NUR ---
AT 0845 PT FOUND TO BE 87% AT REST ON 2L NC. INCREASED O2 TO 2.5L, PT SAT 93%. RESPIRATORY IN ROOM TO GIVE NEB TREATMENT. AT 1100 PT FOUND TO BE 89% ON 2.5L AT REST. INCREASED O2 TO 3L. WAITING FOR PT TO BE STABLE AT REST BEFORE AMBULATORY SATS OBTAINED. WILL MONITOR.
--- NOTE | 2016-07-12 11:39 | PN- Housestaff ---
See Addendum Subjective Follow-up For: COPD exacerbation Subjective: Afebrile, hemodynamically stable, no acute overnight every reported. Patient denies any current complaints. He is saturating lower 90s on room air at rest but dropped below 88% with ambulation. Review of Systems Constitutional: Reports: no symptoms. Objective Last 24 Hrs of Vital Signs/I&O Vital Signs Date Time Temp Pulse Resp B/P B/P Pulse O2 O2 Flow FiO2 Mean Ox Delivery Rate 07/12 1239 93 Nasal 3.0L Cannula 07/12 0855 128/70 07/12 0855 128/70 07/12 0854 128/72 07/12 0800 Nasal 2.0L Cannula 07/12 0650 98.0 68 22 124/70 95 Nasal 2.0L Cannula 07/12 0000 Nasal 2.0L Cannula 07/11 2251 98.8 75 22 124/60 91 Nasal Cannula 07/11 2205 138/82 07/11 2204 138/82 07/11 2203 138/82 07/11 1820 90 Nasal 2.0L Cannula 07/11 1553 97.9 67 20 140/70 96 Intake & Output 07/12 1600 07/12 0800 07/12 0000 Intake Total 240 Output Total Balance 240 Intake, Oral 240 Physical Exam General Appearance: Alert, Oriented X3, Cooperative, No Acute Distress Skin: No Rashes HEENT: Atraumatic, PERRLA, EOMI, Mucous Membr. moist/pink Cardiovascular: Regular Rate, Normal S1, Normal S2, No Murmurs Lungs: mild wheezing and decreased air entry over both lungs Abdomen: Soft, No Tenderness Neurological: Normal Speech Extremities: No Clubbing, No Cyanosis, No Edema Current Medications: Current Medications Sig/Penny Start time Last Medication Dose Route Stop Time Status Admin Acetaminophen 325 MG Q6P PRN 07/08 1145 AC PO Albuterol Sulfate 3 ML EVERY 4 HRS/AWAKE 07/09 0800 AC 07/12 INH 1237 Aspirin 81 MG DAILY 07/08 1134 AC 07/12 PO 0855 Atorvastatin Calcium 40 MG DAILY 07/08 1134 AC 07/12 PO 0855 Azithromycin 500 MG DAILY 07/08 1409 DC 07/12 Sodium Chloride 250 ML IV 0854 Budesonide/ 2 PUF BID 07/08 1137 AC 07/12 Formoterol Fumarate INH 0907 Calcium Carbonate 500 MG DAILY 07/08 2045 AC 07/12 PO 0853 Carvedilol 6.25 MG BID 07/08 1137 AC 07/12 PO 0855 Clopidogrel Bisulfate 75 MG DAILY 07/08 1135 AC 07/12 PO 0854 Furosemide 20 MG Q48 07/10 1000 AC 07/12 PO 0855 Gabapentin 800 MG Q12 07/08 2200 AC 07/12 PO 0854 Guaifenesin 600 MG Q12 07/10 1037 AC 07/12 PO 0854 Heparin Sodium 5,000 UNIT Q8 07/08 1400 AC 07/12 (Porcine) SC 0520 Ipratropium [place] 2.5 ML EVERY 4 HRS/AWAKE 07/11 2000 AC 07/12 INH 1237 Isosorbide 60 MG DAILY 07/08 1137 AC 07/12 Mononitrate PO 0855 Levothyroxine Sodium 0.1 MG DAILY AC 07/08 1145 AC 07/12 PO 0521 Methylprednisolone 40 MG Q12 07/12 1000 DC 07/12 IV 0853 Methylprednisolone 40 MG Q8 07/11 2200 DC 07/12 IV 0520 Methylprednisolone 40 MG Q12 07/10 2200 DC 07/11 IV 0929 Prednisone 20 MG ONCE ONE 07/12 1045 DC 07/12 PO 07/12 1046 1153 Prednisone 60 MG ONCE ONE 07/12 1000 CAN PO 07/12 1001 Ranolazine 500 MG BID 07/08 1135 AC 07/12 PO 0854 Tamsulosin HCl 0.4 MG AT BEDTIME 07/08 2200 AC 07/11 PO 2204 Last 24 Hrs of Lab/Abimael Results Last 24 Hrs of Labs/Mics: Laboratory Tests 07/12/16 0615: Anion Gap 6, Estimated GFR 46 L, BUN/Creatinine Ratio 25.3 H, CBC w Diff NO MAN DIFF REQ, RBC 3.51 L, MCV 101.5 H, MCH 33.4 H, RDW 15.4 H, MPV 7.9, Gran % 91.5 H, Lymphocytes % 4.6 L, Monocytes % 3.9, Eosinophils % 0, Basophils % 0 L, Absolute Granulocytes 8.3 H, Absolute Lymphocytes 0.4 L, Absolute Monocytes 0.4, Absolute Eosinophils 0, Absolute Basophils 0, PUBS MCHC 32.9 L Assessment/Plan Assessment: 75/M with PMH of 60 years of smoking, 1PPD now down to 6 cigarettes per day, CAD , CABG (1988), ischemic cardiomyopathy, HTN, CHF (EF 40%) s/p AICD, hypothyroidism, PVD s/p aortic aneurysm repair, carotid endarterectomy who presented to ED yesterday complaing of shortness of breath for the past few weeks. Found to be hypoxic in the field. #COPD exacerbation Patient saturation drop below 88% with ambulation. * Switch IV Solumedrol 40 mg twice a day to prednisone 60 mg daily * DC azithromycin * Monitor Oxygen saturations closely, keep O2 saturation >92% * TRC with nebulizers. * Recheck oxygen saturation with ambulation, patient may need home oxygen. #CKD At baseline #Hypothryoidism * continue synthroid #Continue all other home meds Regular diet DVT ppx heparin sq DNR/DNI Problem List: 1. COPD exacerbation Pain Ratin Pain Location: NA Pain Goal: Remain pain free Pain Plan: See A&P Tomorrow's Labs & Rationales: none as patient most likely will be discharged later today
--- NOTE | 2016-07-12 13:47 | Discharge Summary ---
Visit Information Visit Dates Admission Date: 07/08/16 Discharge Date: 07/13/16 Hospital Course Course Attending Physician: RONN GAINES MD Primary Care Physician: BLAYNE LUND,[facility] Course: 75 year old male with 60 year history of smoking of one PPD and PMH of CAD, CABG (1988), ischemic cardiomyopathy, HTN, CHF (EF 40%) s/p AICD, hypothyroidism, PVD s/p aortic aneurysm repair, carotid endarterectomy who presented to ED complaing of progressive dyspnea that started few weeks prior to admission. He was found to be hypoxic in the field prior to admission. The following issue was addressed during this admission #COPD exacerbation: Initially Patient was started on IV Solu-Medrol, IV azithromycin, nasal oxygen, TRC with nebulizer. Soon after his symptoms started to improve, we switch IV Solu Medrol to oral prednisone(tapering). He finished a total 5 days of azithromycin. On discharge patient was instructed to follow with his primary care doctor and with clinical statistical programmer within 1 week. #CKD: Creatinine was around baseline through out his admission. #Hypothryoidism: We continue home dose of Synthroid #We continued all other home meds Allergies: Coded Allergies: NO KNOWN ALLERGIES (06/23/14) Disposition Summary Disposition Principal Diagnosis: COPD exacerbation Additional Diagnosis: Chronic kidney disease Discharge Disposition: home or self care Discharge Instructions General Discharge Information Code Status: Do Not Resucitate/Intubat Patient's Diet: Heart healthy Patient's Activity: As tolerated Follow-Up Instructions/Appts: Please follow-up with your primary care doctor within 1 week Please follow-up with your clinical statistical programmer within 1 week Medications at Discharge Discharge Medications: Continue taking these medications: Aspirin (Aspirin*) 81 MG TAB.CHEW 1 Tablet ORAL DAILY Qty = 30 Comments: Last Taken:07/13/16 Time: 10AM Atorvastatin Calcium (Lipitor) 40 MG TABLET 1 Tablet ORAL DAILY Qty = 30 Comments: Last Taken:07/13/16 Time: 10AM Ranolazine (Ranexa) 500 MG TAB.ER.12H 1 Tablet ORAL TWICE DAILY Qty = 30 Comments: Last Taken:07/13/16 Time: 10AM Clopidogrel Bisulfate (Clopidogrel) 75 MG TABLET 1 Tablet ORAL DAILY Qty = 90 Comments: Last Taken: 07/13/16 Time: 10AM Acetaminophen (Acetaminophen) 325 MG CAPSULE 1 Capsule ORAL EVERY SIX HOURS as needed for PAIN Comments: Last Taken:NOT GIVEN THIS ADMISSION Albuterol Sulfate (Proair Hfa) 90 MCG HFA.AER.AD 2 Puff Inhale through mouth Every 4 hours Qty = 1 Comments: NOT GIVEN THIS ADMISSION Furosemide (Furosemide) 20 MG TABLET 20 Milligram ORAL EVERY 48 HOURS (Every 2 days) Days = 30 Comments: Last Taken:01/19/16 Time:09:33A.M Tamsulosin HCl (Flomax) 0.4 MG CAP.ER.24H 1 Capsule ORAL TAKE AT BEDTIME Qty = 30 Instructions: Please take at bed time to avoid low blood pressure during the day. Comments: Last Taken: 07/12/16 Time: 10AM Tiotropium [place] (Spiriva) 18 MCG CAP.W.DEV 1 Capsule Inhale through mouth DAILY Qty = 30 Comments: Last Taken: NOT GIVEN THIS ADMISSION Time: Carvedilol (Coreg) 3.125 MG TABLET 6.25 Milligram ORAL TWICE DAILY Qty = 30 Comments: Last Taken:07/13/16 Time: 10AM Isosorbide Mononitrate (Isosorbide Mononitrate ER) 60 MG TAB.ER.24H 1 Tablet ORAL DAILY Qty = 90 Comments: Last Taken: 07/13/16 Time: 10AM Budesonide/Formoterol Fumarate (Symbicort 160-4.5 Mcg Inhaler) 160 MCG-4.5 MCG/ ACTUATION HFA.AER.AD 2 Puff Inhale through mouth TWICE DAILY Qty = 10 Comments: Last Taken: 07/13/16 Time: 10AM Gabapentin (Neurontin) 800 MG TABLET 1 Tablet ORAL THREE TIMES DAILY Qty = 90 Comments: Last Taken: 07/13/16 Time: 10AM Start taking the following new medications: Prednisone (Prednisone) 10 MG TABLET 0 ORAL See Instructions Qty = 51 No Refills Instructions: please take 60 mg on 07/14/16 then take 50 mg for 3 days then take 40 mg for 3 days then take 30 mg for 3 days then take 20 mg for 3 days then take 10 mg for 3 days then stop Comments: Last Taken: 07/13/16 Time: 10AM Copies To: DALI LUND,ORIANA Hearn; BLAYNE LUND,YAMILKA
[2016-07-12 14:46] VITALS: BP 132/70
--- NOTE | 2016-07-12 14:49 | NUR ---
OXYGEN SATURATION: AT REST ON ROOM AIR PT SAT 84%. AFTER AMBULATING 15 FT PT SAT AT 79% AND BECAME SHORT OF BREATH, NEEDED TO REST. PT 92% ON 3L O2 AT REST, ON AMBULATION DESAT TO 88%, INCREASED TO 4LNC AND PT SAT REMAINED STABLE AT 90-91%. WILL MONITOR.
[2016-07-12 22:00] VITALS: BP 140/80
--- NOTE | 2016-07-12 22:06 | NUR ---
PT HAS ABNORMALLY LARGE PURPLISH BRUISE TO R ABD. HEPARIN SQ DUE AT 2200. ASSOCIATE DIRECTOR CAREER SERVICES KIIN MADE AWARE. PER ASSOCIATE DIRECTOR CAREER SERVICES, TO HOLD DOSE TONIGHT AND REASSESS IN AM. WILL PASS ON TO NEXT SHIFT. WILL CONTINUE TO MONITOR.
[2016-07-13 06:00] VITALS: BP 122/76
--- NOTE | 2016-07-13 06:57 | PN- Housestaff ---
KAYODE LUND,ANGEL 07/13/16 0657: Subjective Follow-up For: COPD exacerbation Subjective: Pt seen today, he was laying comfortably in bed. Nurse reported that he desat to 84% when he walked to the bathroom without oxygen last night. He was placed back on 3L NC and maintained o2 sat of 92%. Nurse ambulated him today with 3l o2 via nc, he sat in the low 90s except when he started dancing around and he desat to 88%. he will go home with oxygen. he did not use cpap to sleep last night. will give 60 mg prednisone today and taper 10mg every 3 days. instructed pt to f /u with pulm, Dr. Damico. Review of Systems Constitutional: Denies: chills, fever. EENTM: Denies: visual changes. Cardiovascular: Denies: chest pain. Respiratory: Reports: cough, short of breath. Gastrointestinal: Denies: abdominal pain. Objective Last 24 Hrs of Vital Signs/I&O Vital Signs Date Time Temp Pulse Resp B/P B/P Pulse O2 O2 Flow FiO2 Mean Ox Delivery Rate 07/13 0904 90 122/07/13 0903 90 122/76 07/13 0903 90 122/76 07/13 0800 Nasal 3.0L Cannula 07/13 0748 95 Nasal 3.0L Cannula 07/13 0600 98.5 90 20 122/76 95 Nasal Cannula 07/13 0000 93 Nasal 3.0L Cannula 07/12 2200 98.2 88 20 140/80 93 Nasal 3.0L Cannula 07/12 2052 88 140/70 07/12 2051 88 140/70 07/12 2051 88 140/70 07/12 1605 93 Nasal 3.0L Cannula 07/12 1600 Nasal 3.0L Cannula 07/12 1446 97.0 67 20 132/70 92 Nasal 3.0L Cannula 07/12 1239 93 Nasal 3.0L Cannula Intake & Output 07/13 1600 07/13 0800 07/13 0000 Intake Total 300 800 Output Total 550 400 Balance -250 400 Intake, IV 0 Intake, Oral 300 800 Number 0 Bowel Movements Output, Urine 550 400 Patient 108.862 kg Weight Physical Exam General Appearance: Alert, Oriented X3, Cooperative, No Acute Distress Cardiovascular: Regular Rate, Normal S1, Normal S2 Lungs: mild exp wheezing Abdomen: Normal Bowel Sounds, Soft, No Tenderness Current Medications: Current Medications Sig/Penny Start time Last Medication Dose Route Stop Time Status Admin Acetaminophen 325 MG Q6P PRN 07/08 1145 AC PO Albuterol Sulfate 3 ML EVERY 4 HRS/AWAKE 07/09 0800 AC 07/13 INH 1120 Aspirin 81 MG DAILY 07/08 1134 AC 07/13 PO 0903 Atorvastatin Calcium 40 MG DAILY 07/08 1134 AC 07/13 PO 0903 Budesonide/ 2 PUF BID 07/08 1137 AC 07/13 Formoterol Fumarate INH 0903 Calcium Carbonate 500 MG DAILY 07/08 2045 AC 07/13 PO 0904 Carvedilol 6.25 MG BID 07/08 1137 AC 07/13 PO 0903 Clopidogrel Bisulfate 75 MG DAILY 07/08 1135 AC 07/13 PO 0904 Furosemide 20 MG Q48 07/10 1000 AC 07/12 PO 0855 Gabapentin 800 MG Q12 07/08 2200 AC 07/13 PO 0904 Guaifenesin 600 MG Q12 07/10 1037 AC 07/13 PO 0903 Heparin Sodium 5,000 UNIT Q8 07/08 1400 AC 07/12 (Porcine) SC 1420 Ipratropium [place] 2.5 ML EVERY 4 HRS/AWAKE 07/11 2000 AC 07/13 INH 1120 Isosorbide 60 MG DAILY 07/08 1137 AC 07/13 Mononitrate PO 0903 Levothyroxine Sodium 0.1 MG DAILY AC 07/08 1145 AC 07/13 PO 0634 Patient Medication 1 ED .STK-MED ONE 07/12 1409 AR Teaching ED 07/12 1410 Prednisone 60 MG DAILY 07/13 1000 AC 07/13 PO 0904 Ranolazine 500 MG BID 07/08 1135 AC 07/13 PO 0904 Tamsulosin HCl 0.4 MG AT BEDTIME 07/08 2200 AC 07/12 PO 2051 Last 24 Hrs of Lab/Baimael Results Last 24 Hrs of Labs/Mics: Laboratory Tests 07/13/16 0715: Anion Gap 4 L, Estimated GFR 46 L, BUN/Creatinine Ratio 26.0 H Assessment/Plan Assessment: 75/M with PMH of 60 years of smoking, 1PPD now down to 6 cigarettes per day, CAD , CABG (1988), ischemic cardiomyopathy, HTN, CHF (EF 40%) s/p AICD, hypothyroidism, PVD s/p aortic aneurysm repair, carotid endarterectomy who presented to ED yesterday complaing of shortness of breath for the past few weeks. Found to be hypoxic in the field. #COPD exacerbation - Patient saturation drop below 88% with ambulation. * Continue prednisone 60 mg daily. Taper 10 mg every 3 days * DC azithromycin * Monitor Oxygen saturations closely, keep O2 saturation >92% * TRC with nebulizers. * Will go home with oxygen #CKD At baseline #Hypothryoidism * continue synthroid #Continue all other home meds Regular diet DVT ppx heparin sq and alps DNR/DNI Problem List: 1. COPD exacerbation Pain Ratin Pain Location: none Pain Goal: Remain pain free Pain Plan: none Tomorrow's Labs & Rationales: none DVT/Prophylaxis: mechanical, pharmacological RONN GAINES 07/13/16 1022: Attending MD Review Statement Attending Statement Attending MD Statement: examined this patient, discuss w/resident/PA/POLYSOMNOGRAPHER, agreed w/resident/PA/POLYSOMNOGRAPHER, discussed with family, reviewed EMR data (avail), discussed with nursing, discussed with case mgmt, reviewed images, amended to note Attending Assessment/Plan: 75 year old obese gentleman, current smoker, with past medical history significant for COPD, HTN, CAD s/p CABG with known vein graft occlusion, Ischemic CMP, chronic systolic CHF, s/p AICD and PPM, PVD s/p aortic aneurysm repair and femoral artery stent (2013), Right carotid endarterectomy, CKD stage 3 comes with shortness of breath and repsond to steroid treatment. ASSESSMENT 1. Acute on chronic respiratroy failure 2. COPD exacerbation 3. Morbid obesity BMI 32.5 4. Tobacco abuse 5. HTN 6. CAD s/p CABG 7. ischemic CMP 8. Chronic systolic CHF ef 35-40% compensated. 9. PVD s/p aortic aneursym repair and femoral stent, right carotid endareterctomy. 10. Chronic kidney disease stage 3. 11 Elevated BNP. 12 Probable PATTI PLAN admit to inpatient medical services complete abx, oxygen supplemetation , TRC, nebs , symbicort. taper steroids serial cardiac enzymes negative, clinical signs suggestive of compensated Chf resume home meds. Lasix 20 daily. trial of cpap at night gi/dvt prophyalxis full code. walking pulse oximetry and possible d/c soon. F/U O/P PCP and Pulmonary.
[2016-07-13] MEDS ORDERED: PREDNISONE10 M2 PO (08:27)
--- NOTE | 2016-07-13 08:59 | NUR ---
PT AT REST, 02 @ 90% ON 3L- AMBULATED PATIENT ON 3L NC O2 @ 90%. MD NOTIFIED, WILL CONTINUE TO MONITOR.
[2016-07-13 09:04] VITALS: BP 122/76
[2016-07-13] MEDS ORDERED: LEVOTHYROXINE100 MC1 PO (15:48)
== END 2016-07-13 13:07 | DRG 190 ==
LOC: ERH 06:31 → 2NA 09:43 → ERHI 09:43 → ENRESERV 10:54 → 2NA 11:46 → ENPENDDIS 07-13 10:12 → 2NA 07-13 13:07
PROVIDERS: Internal Medicine Hematology & Oncology; Pediatrics; Student in an Organized Health Care Education/Training Program; ADMIT Internal Medicine
DX: J44.1 Chronic obstructive pulmonary disease with (acute) exacerbation (principal); J96.20 Acute and chronic respiratory failure, unspecified whether with hypoxia or hypercapnia; I50.22 Chronic systolic (congestive) heart failure; I13.0 Hypertensive heart and chronic kidney disease with heart failure and stage 1 through stage 4 chronic kidney disease, or unspecified chronic kidney disease; E66.01 Morbid (severe) obesity due to excess calories; Z68.32 Body mass index [BMI] 32.0-32.9, adult; I25.10 Atherosclerotic heart disease of native coronary artery without angina pectoris; I25.5 Ischemic cardiomyopathy; N18.3 Chronic kidney disease, stage 3 (moderate); I73.9 Peripheral vascular disease, unspecified; F17.210 Nicotine dependence, cigarettes, uncomplicated; Z95.1 Presence of aortocoronary bypass graft; E03.9 Hypothyroidism, unspecified
CPT/HCPCS: 2NASP; 36415; 82436; 87040; 93005; 93010; 96365; 96375; J0456; J0696; J1644; J2920; J2930; J3490; J7040

== ENCOUNTER 2016-07-13 14:51 | Emergency (ER) | payer OTHER, MEDICARE ==
[~2016-07-13] VITALS: Ht 182.9 cm; Wt 108.9 kg
[~2016-07-13 14:51] MED LIST changes: +ISOSORBIDE MONO60 M1 PO; +PREDNISONE10 M2 PO; +PREDNISONE20 M1 PO; +SYMBICORT 16010.2 GM INH; +ZITHROMAX250 M2 PO
[2016-07-13 14:55] VITALS: BP 148/76
--- NOTE | 2016-07-13 15:47 | ED DYSPNEA/ASTHMA COMPLAINT ---
History of Present Illness General Chief Complaint: Dyspnea (COPD, CHF, Other) Stated Complaint: RAN OUT OF OXYGEN Source: patient Exam Limitations: no limitations Vital Signs & Intake/Output Vital Signs & Intake/Output Vital Signs Date Time Temp Pulse Resp B/P B/P Pulse O2 O2 Flow FiO2 Mean Ox Delivery Rate 07/13 1515 93 Nasal 2.0L Cannula 07/13 1455 97.8 75 20 148/76 83 Room Air Allergies Coded Allergies: NO KNOWN ALLERGIES (06/23/14) Reconcile Medications Acetaminophen 325 MG CAPSULE 1 CAP PO Q6 PRN PAIN (Reported) Albuterol Sulfate (Proair Hfa) 90 MCG HFA.AER.AD 2 PUF INH Q4 COPD Aspirin (Aspirin*) 81 MG TAB.CHEW 1 TAB PO DAILY heart (Reported) Atorvastatin Calcium (Lipitor) 40 MG TABLET 1 TAB PO DAILY cholesterol ( Reported) Budesonide/Formoterol Fumarate (Symbicort 160-4.5 Mcg Inhaler) 160 MCG-4.5 MCG/ ACTUATION HFA.AER.AD 2 PUF INH BID COPD (Reported) Carvedilol (Coreg) 3.125 MG TABLET 6.25 MG PO BID HEART Clopidogrel Bisulfate (Clopidogrel) 75 MG TABLET 1 TAB PO DAILY BLOOD THINNER (Reported) Furosemide 20 MG TABLET 20 MG PO Q48 fluid overload Gabapentin (Neurontin) 800 MG TABLET 1 TAB PO TID BACK PAIN (Reported) Isosorbide Mononitrate (Isosorbide Mononitrate ER) 60 MG TAB.ER.24H 1 TAB PO DAILY (Reported) Levothyroxine Sodium 100 MCG TABLET 1 TAB PO DAILY THYROID (Reported) Prednisone 10 MG TABLET 0 PO SI COPD please take 60 mg on 07/14/16 then take 50 mg for 3 days then take 40 mg for 3 days then take 30 mg for 3 days then take 20 mg for 3 days then take 10 mg for 3 days then stop Ranolazine (Ranexa) 500 MG TAB.ER.12H 1 TAB PO BID heart (Reported) Tamsulosin HCl (Flomax) 0.4 MG CAP.ER.24H 1 CAP PO QHS prostate Please take at bed time to avoid low blood pressure during the day. Tiotropium [place] (Spiriva) 18 MCG CAP.W.DEV 1 CAP INH DAILY COPD (Reported) Triage Note: PT TO ED WITH LOW O2 SATS. PT WAS RELEASED FROM [facility] ABOUT AN HOUR AGO. PT WAS SENT HOME WITH O2, PT AND STATE THE O2 TANK WAS EMPTY WHEN HE LEFT AND WHEN HE GOT HOME HIS O2 SATS WERE 83%. PT WAS TAKEN TO ROOM 17 VIA W/C, PLACED ON 3L, SATS UP TO 91-92%. PT HAS NO COMPLAINTS. Triage Nurses Notes Reviewed? yes HPI: This patient is a 75-year-old male with a past medical history including COPD who was brought into the emergency department today accompanied by his after having been discharged approximately one hour prior to arrival from the floor due to the fact that the oxygen tank they were sent home with is out of oxygen. This patient was originally admitted to the hospital for COPD and discharged today. He was discharged with an oxygen tank. However, when he got home he noticed that his finger probe to monitor oxygen saturation was at 83%. They figured out that there was no oxygen in the oxygen tank they had been provided with. They are returning now to get a new oxygen tank. The patient reported that he is not having any chest pain, difficulty breathing, visual changes, headaches, numbness or tingling in his extremities, jaw pain, arm pain, abdominal pain, nausea, vomiting, or any other associated symptoms. (CARLY CLINE PA-C) Past History Travel History Traveled to [place] past 21 day No Medical History Any Pertinent Medical History? see below for history Neurological: NONE EENT: NONE Cardiovascular: CARDIAC STENTS CABG CAROTID ARTERY BYPASS DEFIBRILLATOR Respiratory: COPD Gastrointestinal: NONE Hepatic: NONE Renal: NONE Musculoskeletal: NONE Psychiatric: NONE Endocrine: hypothyroidism Blood Disorders: DVT Cancer(s): NONE BACK TACKER/Reproductive: NONE History of MRSA: No History of VRE: No History of CDIFF: No Influenza Vaccine: 12/20/15 Surgical History Surgical History: CABG, CAROTID ARTECTOMY nerve thermoablation to reduce back pain Psychosocial History Who do you live with Spouse Services at Home None What is your primary language [place]auan Tobacco Use: Quit <30 days ago ETOH Use: denies use Illicit Drug Use: denies illicit drug use Family History Hx Contributory? No (CARLY CLINE PA-C) Review of Systems Review of Systems Constitutional: Reports: no symptoms. EENTM: Reports: no symptoms. Respiratory: Reports: see HPI. Cardiovascular: Reports: no symptoms. GI: Reports: no symptoms. Musculoskeletal: Reports: no symptoms. Skin: Reports: no symptoms. Neurological/Psychological: Reports: no symptoms. All Other Systems: Reviewed and Negative (CARLY CLINE PA-C) Physical Exam Physical Exam Respiratory: quiet respiration, few expiratory wheezes heard in the lung apices. No rhonchi or rales. Comments: Well-developed well-nourished person in no acute distress HEENT: Normal EENT exam, head normocephalic, moist mucous membranes Pupils equally round and reactive to light. Neck: Supple, no lymphadenopathy Back: Normal gait. Normal inspection Cardiovascular: Regular rate and rhythm with no murmurs, rubs, or gallops Extremity: Normal and equal pulses. Neuro: Alert oriented x3, cranial nerves II through XII grossly intact. Skin: No appreciable rash on exposed skin, skin is warm and dry. Psych: Mood and affect is normal Core Measures ACS in differential dx? No Severe Sepsis Present: No Septic Shock Present: No (CARLY CLINE PA-C) Progress Differential Diagnosis: asthma, AMI, bronchitis, costochondritis, CHF, COPD, musculoskeletal pain, pericarditis, pulmonary embolism, pneumonia, pneumothorax, unstable angina Plan of Care: 07/13/2016 3:47:11 PM: The patient's reported that she is currently on the phone with a business librarian because, "this is the hospital's fault." I spoke to case management who is currently speaking with the oxygen company to get him a new oxygen tank. Initial ED EKG: none (CARLY CLINE PA-C) Departure Departure Disposition: HOME OR SELF CARE Condition: Stable Clinical Impression Primary Impression: Low O2 saturation Referrals: YAMILKA CISNEROS MD (PCP/Family) Additional Instructions: Use home oxygen as directed. Return for any worsening symptoms or concerns. Departure Forms: Customer Survey General Discharge Information (CARLY CLINE PA-C) PA/FARM LOAN INSPECTOR Co-Sign Statement Statement: ED Attending supervision documentation- [X] I saw and evaluated the patient. I have also reviewed all the pertinent lab results and diagnostic results. I agree with the findings and the plan of care as documented in the PA's/FARM LOAN INSPECTOR's documentation. [] I have reviewed the ED Record and agree with the PA's/FARM LOAN INSPECTOR's documentation. [] Additions or exceptions (if any) to the PAs/FARM LOAN INSPECTOR's note and plan are summarized below: [] (MARCIO LUND,KAVON D) Critical Care Note Critical Care Note Critical Care Time: non-applicable (MARLYN HOLT,CARLY)
[2016-07-13] MEDS ORDERED: LEVOTHYROXINE100 MC1 PO (15:48)
== END 2016-07-13 16:32 ==
LOC: ERH 14:51
DX: R09.02 Hypoxemia (principal)

== ENCOUNTER 2016-10-05 16:21 | Inpatient (IN) | payer OTHER, MEDICARE ==
[~2016-10-05] VITALS: Ht 182.9 cm; Wt 108.9 kg
[~2016-10-05 16:21] MED LIST changes: +LEVOTHYROXINE100 MC1 PO
[2016-10-05 16:52] LABS: ABSOLUTE BASOPHIL COUNT 0.1 /CUMM (0.0-0.2); ABSOLUTE EOSINOPHIL COUNT 0 /CUMM (0.0-0.7); ABSOLUTE GRANULOCYTE CT 9.9 /CUMM (1.4-6.5); ABSOLUTE LYMPH COUNT 0.7 /CUMM (1.2-3.4); ABSOLUTE MONOCYTE COUNT 0.8 /CUMM (0.10-0.60); BASOPHIL % 0.7 % (0.0-2.0); EOSINOPHIL % 0.2 % (0-5); HEMATOCRIT 39.4 % (42-52); MEAN CORPUSCULAR HGB 33.1 PG (27.0-31.0); MEAN CORPUSCULAR HGB CONC 33.4 G/DL (33.0-37.0); MEAN CORPUSCULAR VOLUME 98.9 FL (80.0-94.0); MEAN PLATELET VOLUME 7.3 FL (7.4-10.4); PLATELET COUNT 189 /CUMM (130-400); RBC DISTRIBUTION WIDTH 16.4 % (11.5-14.5); RED BLOOD CELL CT 3.98 /CUMM (4.70-6.10); WHITE BLOOD CELL COUNT 11.5 /CUMM (4.8-10.8)
[2016-10-05 17:06] LABS: GRANULOCYTE % 85.9 % (42.2-75.2)
[2016-10-05] MEDS ORDERED: NITROSTAT0.4 M1 SL (18:12)
[2016-10-05] MEDS ORDERED: LASIX20 M1 PO (18:12)
--- NOTE | 2016-10-05 18:30 | ED CARDIAC/CP/PALPITATIONS ---
History of Present Illness General Chief Complaint: Dyspnea (COPD, CHF, Other) Stated Complaint: SOB Source: patient Exam Limitations: no limitations Allergies Coded Allergies: NO KNOWN ALLERGIES (06/23/14) Reconcile Medications Acetaminophen 325 MG CAPSULE 1 CAP PO Q6 PRN PAIN (Reported) Albuterol Sulfate (Proair Hfa) 90 MCG HFA.AER.AD 2 PUF INH Q4 COPD Aspirin (Aspirin*) 81 MG TAB.CHEW 1 TAB PO DAILY heart (Reported) Atorvastatin Calcium (Lipitor) 40 MG TABLET 1 TAB PO DAILY cholesterol ( Reported) Budesonide/Formoterol Fumarate (Symbicort 160-4.5 Mcg Inhaler) 160 MCG-4.5 MCG/ ACTUATION HFA.AER.AD 2 PUF INH BID COPD (Reported) Carvedilol (Coreg) 3.125 MG TABLET 6.25 MG PO BID HEART Clopidogrel Bisulfate (Clopidogrel) 75 MG TABLET 1 TAB PO DAILY BLOOD THINNER (Reported) Furosemide (Lasix) 20 MG TABLET 1 TAB PO DAILY DIURETIC (Reported) Gabapentin (Neurontin) 800 MG TABLET 1 TAB PO TID BACK PAIN (Reported) Isosorbide Mononitrate (Isosorbide Mononitrate ER) 60 MG TAB.ER.24H 1 TAB PO DAILY (Reported) Levothyroxine Sodium 100 MCG TABLET 1 TAB PO DAILY THYROID (Reported) Nitroglycerin (Nitrostat) 0.4 MG TAB.SUBL 1 TAB SL AD PRN CHEST PAIN ( Reported) 1st sign of attack; may repeat every 5 minutes until relief; if pain persists after 3 tablets in 15 minutes, prompt medical att Ranolazine (Ranexa) 500 MG TAB.ER.12H 1 TAB PO BID heart (Reported) Tamsulosin HCl (Flomax) 0.4 MG CAP.ER.24H 1 CAP PO QHS prostate Please take at bed time to avoid low blood pressure during the day. Tiotropium [place] (Spiriva) 18 MCG CAP.W.DEV 1 CAP INH DAILY COPD (Reported) Triage Note: PT TO ED FOR MULTIPLE COMPLAINTS, REPORTING SOB WHEN HE WAS ATTEMPTING TO WATER HIS 'S GARDEN, STATING THAT HAS MOSTLY RESOLVED SINCE ARRIVING TO ED, CONSTIPATION X 5 DAYS WELL A FALL APPROX 1 WEEK AGO. BRUISING NOTED TO R SIDE OF ABD. Triage Nurses Notes Reviewed? yes Onset: Gradual Duration: getting worse Timing: recent history Quality/Severity: moderate Radiation: no radiation HPI: Patient is a 75-year-old male with a past medical history of CAD, CABG in 1997, ischemic cardiomyopathy, CHF, hypertension, AICD placement, hypothyroidism, PVD carotid endarterectomy who was recently admitted in June 2016 for concerns of COPD to [facility]. Patient presents emergency room stating that 2 days ago patient believes he had a syncopal episode after coughing multiple episodes in the bathroom where subs, he was noted to be on the ground from a standing position. Patient woke up and noted pain to the right side of his chest and abdomen and left hip and left ankle. Patient notes bruising afterwards to the area of the chest and abdomen. Patient also presents with worsening shortness of breath and dyspnea on exertion. It is noted on initial presentation the patient was alert and oriented in no apparent distress and answering questions appropriately however group home through the exam patient had an episode of unresponsiveness where his eyes were open however patient was a phasic for approximately 3 minutes. Patient then began mumbling his words and which stroke alert was called immediately. Blood glucose was noted to be at the time 131. Patient then began having symptoms of WERNICKE 'S encephalopathy-aphasia where he was repeating words and his verbiage was incoherent and not making any sense. Patient went to CT which he received noncontrast head and contrasted abdomen pelvis for concerns of recent trauma. After approximately 5-7 minutes patient has made a full recovery however he does not remember this episode. (KARLY PEARL,JERSON) Vital Signs & Intake/Output Vital Signs & Intake/Output Vital Signs Date Time Temp Pulse Resp B/P B/P Pulse O2 O2 Flow FiO2 Mean Ox Delivery Rate 10/07 1126 Nasal 2.0L Cannula 10/07 1125 97 Nasal 2.0L Cannula 10/07 0934 11460 10/07 0934 114/60 10/07 0934 11460 10/07 0801 97.8 78 20 114/60 93 Nasal Cannula 10/07 0000 95 Nasal 2.0L Cannula 10/06 223 86 122/60 10/062 86 122/60 10/06 2232 86 122/60 10/06 2123 98.2 84 20 106/60 91 10/06 1758 97.9 85 20 140/80 92 Nasal 2.0L Cannula 10/06 1502 97.9 73 18 137/79 94 Nasal 2.0L Cannula 10/06 1150 98.4 96 145/86 96 Nasal Cannula ED Intake and Output 10/07 0000 10/06 1200 Intake Total 250 Output Total 450 Balance -200 Intake, Oral 250 Number 0 Bowel Movements Output, Urine 450 Patient 240 lb Weight Weight Reported by Patient Measurement Method Past History Travel History Traveled to [place] past 21 day No Medical History Any Pertinent Medical History? see below for history Neurological: NONE EENT: NONE Cardiovascular: CARDIAC STENTS CABG CAROTID ARTERY BYPASS DEFIBRILLATOR Respiratory: COPD Gastrointestinal: NONE Hepatic: NONE Renal: NONE Musculoskeletal: NONE Psychiatric: NONE Endocrine: hypothyroidism Blood Disorders: DVT Cancer(s): NONE INTERNATIONAL GUEST COORDINATOR/Reproductive: NONE History of MRSA: No History of VRE: No History of CDIFF: No Surgical History Surgical History: CABG, CAROTID ARTECTOMY nerve thermoablation to reduce back pain Psychosocial History Who do you live with Spouse Services at Home None What is your primary language Romansh Tobacco Use: Current Daily Use Daily Tobacco Use Amount/Type: => 5 Cigarettes daily ETOH Use: denies use Illicit Drug Use: denies illicit drug use Family History Hx Contributory? No (JERSON SPARROW) Review of Systems Review of Systems Constitutional: Reports: no symptoms. EENTM: Reports: no symptoms. Respiratory: Reports: see HPI, cough, wheezing. Cardiovascular: Reports: see HPI. GI: Reports: no symptoms. Genitourinary: Reports: no symptoms. Musculoskeletal: Reports: no symptoms. Skin: Reports: no symptoms. Neurological/Psychological: Reports: no symptoms. Hematologic/Endocrine: Reports: no symptoms. Immunologic/Allergic: Reports: no symptoms. All Other Systems: Reviewed and Negative (JERSON SPARROW) Physical Exam Physical Exam General Appearance: no apparent distress, obese Respiratory: no respiratory distress, wheezing Cardiovascular: regular rate/rhythm Comments: Well-developed well-nourished person in no acute distress HEENT: Normal EENT exam, Neck: Supple, no lymphadenopathy, normal range of motion without pain or tenderness Back: Nontender, no CVA tenderness. Cardiovascular: Regular rate and rhythms no murmurs rubs or gallops, normal JVP Abdomen: Soft, nondistended, no appreciable organomegaly. Normal bowel sounds. No ascites Extremity: Left hip normal inspection GENERALIZED point tenderness noted Left ankle normal inspection generalized point tenderness noted No edema, no calf tenderness to palpation, normal and equal pulses. Neuro: Alert Psych: Mood and affect is normal, memory and judgment is normal. Diagram Chest, Abdomen, Back: 1) Noted right sided intercostal and right upper quadrant abdominal point tenderness and ecchymosis No rebound tenderness Core Measures ACS in differential dx? No Severe Sepsis Present: No Septic Shock Present: No (KARLY PEARL,JERSON) Progress Differential Diagnosis: AMI, aortic dissection, atrial fibrillation, cholecystitis, CHF/pulm edema, costochondritis, hyperkalemia, hypovolemia, hyperthyroid, hyperventilation, intracranial hemorrhage, musculoskeletal pain, myocarditis, pancreatitis, pericarditis, pneumonia, pneumothorax, PSVT, pulmonary embolism, PUD/GERD, PVCs/PACs, respiratory failure, rib fracture, sepsis, unstable angina, V-fib/V-Tach, WPW syndrome, TIA, CVA, WERNICKE'S,ETOH W /D POLYSUBSTANCE ABUSE MENINGITIS Diagnostic Imaging: Viewed by Me: CT Scan. Radiology Impression: SEE COMMENTS Initial ED EKG: normal p-waves, normal QRS complex, normal sinus rhythm, 85 BPM Comments: PATIENT: EMILY FRANCO JR PRESENT AGE: 75 PATIENT ACCOUNT NO: [id number] : 42 LOCATION: [facility] ORDERING PHYSICIAN: JERSON PEARL SERVICE DATE: 10/05/16 EXAM TYPE: CAT - CT ABD & PELVIS W IV CONTRAST; CT CHEST W IV CONTRAST EXAMINATION: CT CHEST, ABDOMEN AND PELVIS WITH CONTRAST CLINICAL INFORMATION: Pain following trauma. Right-sided pain after fall. COMPARISON: 12/17/2014. TECHNIQUE: Contiguous axial thin section helical images of the chest, abdomen and pelvis were performed following the administration of 95 mL of intravenous Optiray 320. The data set was reformatted in the coronal and sagittal planes and reviewed on an independent workstation. DLP: 827 mGy-cm. FINDINGS: The heart is of normal size. There is no pericardial effusion. There is neither mediastinal, hilar nor axillary lymphadenopathy. There are no chest wall masses. Review of lung windows demonstrates that there are neither pleural effusions nor pneumothoraces. There are mild manifestations of emphysema, probably within the lung apices. There are no consolidations. Within the left lower lobe on image 307/1104, there is a 1.7 cm irregular shaped nodule. There is a small hiatal hernia. The liver is of normal size and attenuation without focal lesions nor intrahepatic biliary ductal dilation. A normal gallbladder is identified. There is no wall thickening or discernible pericholecystic fluid. The spleen, pancreas, adrenal glands are unremarkable. Both kidneys are of normal size and attenuation without hydronephrosis. There is a 6 mm nonobstructive calculus within the lower pole of the left kidney. Following the administration of IV contrast, prompt symmetric nephrograms are displayed. There is no abdominal free fluid. There is neither mesenteric nor retroperitoneal lymphadenopathy. Again identified is aneurysmal dilation to the abdominal aorta. This is unchanged from prior exam measuring 5.7 cm in greatest sagittal AP dimension. A stent graft is in place. There is sigmoid diverticulosis without evidence of diverticulitis. Otherwise, unremarkable unopacified loops of small and large bowel are identified. There is no pelvic free fluid. The urinary bladder is unremarkable. There is neither pelvic nor inguinal lymphadenopathy. Bone windows: Neither sclerotic nor lytic bone lesions are identified. IMPRESSION: No evidence for acute traumatic injury. 1.7 cm irregular shaped left lower lobe nodule. Especially in the setting of mild emphysema, this is suspicious for a lung neoplasm. Recommendation is for correlation with PET/CT for further tissue characterization. Sigmoid diverticulosis without evidence of diverticulitis. Aortobiiliac stent graft in place with aneurysmal dilation of the infrarenal abdominal aorta unchanged from prior exam. DICTATED BY: ANNABELLA LUND,SHANE (JERSON SPARROW) Plan of Care: Orders Procedure Date/time Status RT: Evaluation 10/07 1124 Active BASIC ELECTROLYTES PLUS BUN&CR 10/07 0600 Complete THERAPIST ORDERS 10/07 UNK Complete OXYGEN SETUP (GEN) 10/07 UNK Complete Therapeutic Activity 10/07 UNK Complete OT EVAL LOW COMPLEX 30 MIN 10/07 UNK Complete ADL/SelfCare 10/07 UNK Complete Change service to 10/06 1402 Active Therapeutic Activities 10/06 UNK Complete PT EVAL LOW COMPLEX 20 MIN 10/06 UNK Complete Medtronic Device Interrogation 10/06 UNK Active Current Medications Sig/Penny Start time Last Medication Dose Stop Time Status Admin Prednisone 10 MG DAILY 10/09 1000 AC 10/09 1001 Prednisone 20 MG DAILY 10/08 1000 AC 10/08 1001 Albuterol Sulfate 3 ML BID 10/07 2200 AC 10/07 (Proventil) 1117 Tamsulosin HCl 0.4 MG AT BEDTIME 10/06 2200 AC 10/06 (Flomax) 2232 Senna/Docusate Sodium 2 TAB DAILY PRN 10/06 1945 AC 10/06 (Senokot S) 2229 Polyethylene Glycol 17 GM DAILY 10/06 1935 AC 10/07 (Miralax) 0934 Aspirin 81 MG DAILY 10/06 1000 AC 10/07 (Aspirin) 0915 Carvedilol 6.25 MG BID 10/06 1000 AC 10/07 (Coreg) 0934 Clopidogrel Bisulfate 75 MG DAILY 10/06 1000 AC 10/07 (Plavix) 0934 Isosorbide 60 MG DAILY 10/06 1000 AC 10/07 Mononitrate 0934 (Imdur) Ranolazine 500 MG BID 10/06 1000 AC 10/07 (Ranexa) 0934 Tiotropium [place] 1 PUF DAILY 10/06 1000 AC 10/07 (Spiriva) 0934 Levothyroxine Sodium 0.1 MG DAILY AC 10/06 0700 AC 10/07 (Synthroid) 0649 Albuterol Sulfate 2 PUF Q4P PRN 10/06 0200 AC (Ventolin) Budesonide/ 2 PUF BID 10/06 0033 AC 10/07 Formoterol Fumarate 0934 (Symbicort) Acetaminophen 650 MG Q6P PRN 10/06 0030 AC (Tylenol) Acetaminophen 1,000 MG Q12P PRN 10/06 0030 AC (Ofirmev) Heparin Sodium 5,000 UNIT Q8 10/06 0024 AC 10/07 (Porcine) 0649 Laboratory Tests 10/07/16 0636: Anion Gap 8, Estimated GFR 50 L, BUN/Creatinine Ratio 18.6 After patient had complete resolution of his acute delirium episode it was noted that patient was intermittently coherent while in the emergency room. Urine drug screen is pending. Plan at this time during admission there is no clear etiology of patient's altered mental state ABG was unremarkable Patient still believes his 1990 and is unaware of month He does know he is at [facility] Patient did pass a swallow evaluation had intact gag reflex and was able to swallow 3 ounces of water It is also noted that Dr. VO discussed altered mental state with neurology There was also no focal deficits on patient's exam for concerns of CVA/TIA (KARLY PEARL,JERSON) Departure Departure Disposition: STILL A PATIENT Condition: Guarded Clinical Impression Primary Impression: Altered mental state Secondary Impressions: Abdominal contusion, COPD (chronic obstructive pulmonary disease), Fall, Left ankle pain, Left hip pain, Syncope Referrals: YAMILKA CISNEROS MD (PCP/Family) Departure Forms: Customer Survey General Discharge Information Admission Note Spoke With: ZAIN LUND,VICTORINARhina Documentation of Exam: Documentation of any treatments & extenuating circumstances including Concerns Regarding Discharge (functional status, medication knowledge or non-compliance, living conditions, etc.) that warrant an admission rather than observation: [ Discussed patient with who agrees with telemetry admission for concerns of altered mental status which patient requires MRI, repeat labs, pulmonary consultation, NEB treatments, IV steroids neurology consultation and outpatient treatment at this time would be medically harmful] (KARLY PEARL,JERSON) PA/DIGITAL ADVERTISING ANALYST Co-Sign Statement Statement: ED Attending supervision documentation- [x] I saw and evaluated the patient. I have also reviewed all the pertinent lab results and diagnostic results. I agree with the findings and the plan of care as documented in the PA's/DIGITAL ADVERTISING ANALYST's documentation. pt stable clinically. c/o left calf pain with tenderness laterally. nt over bone. likely calf pull. pt told needs to be npo until cat scan results known. [] I have reviewed the ED Record and agree with the PA's/DIGITAL ADVERTISING ANALYST's documentation. [] Additions or exceptions (if any) to the PAs/DIGITAL ADVERTISING ANALYST's note and plan are summarized below: [] (MARCIO LUND,KAVON Glover) PA/DIGITAL ADVERTISING ANALYST Co-Sign Statement Statement: ED Attending supervision documentation- [] I saw and evaluated the patient. I have also reviewed all the pertinent lab results and diagnostic results. I agree with the findings and the plan of care as documented in the PA's/DIGITAL ADVERTISING ANALYST's documentation. [] I have reviewed the ED Record and agree with the PA's/DIGITAL ADVERTISING ANALYST's documentation. [] Additions or exceptions (if any) to the PAs/DIGITAL ADVERTISING ANALYST's note and plan are summarized below: [] Seen and personally examined the patient. He is a 75-year-old man who had a syncopal episode and came to the emergency department. While he was being interviewed in the emergency department he had a transient alteration in his consciousness. He was immediately taken to CT scan which was negative for intracranial bleed. Over time his neurological exam return to baseline. During the altered mental status he was confused. However he had no facial weakness. Cranial nerves II through XII are intact. There was no focal weakness. He does have ecchymosis to the right anterior abdomen. [place] CT scan was ordered. (GILDA SWAN,KAVON Maya) Critical Care Note Critical Care Note Critical Care Time: non-applicable (KARLY PEARL,JERSON)
--- NOTE | 2016-10-05 19:23 | CT SCAN REPORT ---
EXAMINATION: CT HEAD WITHOUT CONTRAST CLINICAL INFORMATION: Altered mental status. COMPARISON: CT head 01/06/2016 TECHNIQUE: Contiguous axial imaging was performed from the skull base to vertex without intravenous administration of contrast. DLP: 630.37 mGy-cm FINDINGS: There is no evidence of acute intracranial hemorrhage or territorial infarction. No abnormal mass effect or midline shift is seen. [place] to white matter differentiation is well preserved. No extra-axial fluid collections are identified. There is atrophy with prominence of the ventricles and the sulci and hypodensity of the periventricular white matter due to chronic small vessel ischemic disease. There is vascular calcifications of the internal carotid arteries and vertebral arteries bilaterally. The osseous structures and soft tissues are normal. The mastoid air cells and visualized portions of the paranasal sinuses are well aerated. IMPRESSION: No acute intracranial pathology. This critical result was discussed with Dr. Sheikh on 10/05/2016, 7:20 PM and it was ascertained that the content and urgency of the report was understood at the time of direct communication.
--- NOTE | 2016-10-05 19:51 | CT SCAN REPORT ---
EXAMINATION: CT CHEST, ABDOMEN AND PELVIS WITH CONTRAST CLINICAL INFORMATION: Pain following trauma. Right-sided pain after fall. COMPARISON: 12/17/2014. TECHNIQUE: Contiguous axial thin section helical images of the chest, abdomen and pelvis were performed following the administration of 95 mL of intravenous Optiray 320. The data set was reformatted in the coronal and sagittal planes and reviewed on an independent workstation. DLP: 827 mGy-cm. FINDINGS: The heart is of normal size. There is no pericardial effusion. There is neither mediastinal, hilar nor axillary lymphadenopathy. There are no chest wall masses. Review of lung windows demonstrates that there are neither pleural effusions nor pneumothoraces. There are mild manifestations of emphysema, probably within the lung apices. There are no consolidations. Within the left lower lobe on image 307/1104, there is a 1.7 cm irregular shaped nodule. There is a small hiatal hernia. The liver is of normal size and attenuation without focal lesions nor intrahepatic biliary ductal dilation. A normal gallbladder is identified. There is no wall thickening or discernible pericholecystic fluid. The spleen, pancreas, adrenal glands are unremarkable. Both kidneys are of normal size and attenuation without hydronephrosis. There is a 6 mm nonobstructive calculus within the lower pole of the left kidney. Following the administration of IV contrast, prompt symmetric nephrograms are displayed. There is no abdominal free fluid. There is neither mesenteric nor retroperitoneal lymphadenopathy. Again identified is aneurysmal dilation to the abdominal aorta. This is unchanged from prior exam measuring 5.7 cm in greatest sagittal AP dimension. A stent graft is in place. There is sigmoid diverticulosis without evidence of diverticulitis. Otherwise, unremarkable unopacified loops of small and large bowel are identified. There is no pelvic free fluid. The urinary bladder is unremarkable. There is neither pelvic nor inguinal lymphadenopathy. Bone windows: Neither sclerotic nor lytic bone lesions are identified. IMPRESSION: No evidence for acute traumatic injury. 1.7 cm irregular shaped left lower lobe nodule. Especially in the setting of mild emphysema, this is suspicious for a lung neoplasm. Recommendation is for correlation with PET/CT for further tissue characterization. Sigmoid diverticulosis without evidence of diverticulitis. Aortobiiliac stent graft in place with aneurysmal dilation of the infrarenal abdominal aorta unchanged from prior exam.
--- NOTE | 2016-10-05 23:43 | History & Physical ---
[facility] 10/05/16 2333: General Information and HPI MD Statement: I have seen and personally examined EMILY FRANCO Alessandra HUSAIN and documented this H&P. The patient is a 75 year old M smoker with PMH of CAD, CABG, ischemic cardiomyopathy, HTN, CHF, AICD placement, carotid endarterectomy and hypothyroidism who presented with chief complaint of shortnes of breath. When he presented to ED this evening he was alert, oriented and answering the questions when they were getting history from him but during the interviewing he became unresponsive. His eyes were open but he was mute and this stage remined for couple of minutes and stroke protocal was called during that time. After couple of minutes patient started talking but he was disoriented and uttering inappropriate words. []. During the interview he also reported that he was admitted to hospital in June 2016 due to COPD. He also reported that he came to ED two days back because he belives he had a syncopal episode after multiple boutes of cough and he fell down. When he regained the consciousness he was feeling pain in right side of his chest, abdomen and also left hip and ankle. He noticed a bruise on right side of his chest and abdomen. History of Present Illness: The patient is a 75 year old M smoker with PMH of CAD, CABG, ischemic cardiomyopathy, HTN, CHF, AICD placement, carotid endarterectomy and hypothyroidism who presented with chief complaint of shortnes of breath. When he presented to ED this evening he was alert, oriented and answering the questions when they were getting history from him but during the interviewing he became unresponsive. His eyes were open but he was mute and this stage remined for couple of minutes and stroke protocal was called during that time. After couple of minutes patient started talking but he was disoriented and uttering inappropriate words. During the interview he also reported that he was admitted to hospital in June 2016 due to COPD. He also reported that he came to ED two days back because he belives he had a syncopal episode after multiple boutes of cough and he fell down. When he regained the consciousness he was feeling pain in right side of his chest, abdomen and also left hip and ankle. He noticed a bruise on right side of his chest and abdomen. Chest CT scan in ED showed 1.7cm irregular mass in left lower lobe. Allergies/Medications Allergies: Coded Allergies: NO KNOWN ALLERGIES (06/23/14) Home Med list Acetaminophen 325 MG CAPSULE 1 CAP PO Q6 PRN PAIN (Reported) Albuterol Sulfate (Proair Hfa) 90 MCG HFA.AER.AD 2 PUF INH Q4 COPD Aspirin (Aspirin*) 81 MG TAB.CHEW 1 TAB PO DAILY heart (Reported) Atorvastatin Calcium (Lipitor) 40 MG TABLET 1 TAB PO DAILY cholesterol ( Reported) Budesonide/Formoterol Fumarate (Symbicort 160-4.5 Mcg Inhaler) 160 MCG-4.5 MCG/ ACTUATION HFA.AER.AD 2 PUF INH BID COPD (Reported) Carvedilol (Coreg) 3.125 MG TABLET 6.25 MG PO BID HEART Clopidogrel Bisulfate (Clopidogrel) 75 MG TABLET 1 TAB PO DAILY BLOOD THINNER (Reported) Furosemide (Lasix) 20 MG TABLET 1 TAB PO DAILY DIURETIC (Reported) Gabapentin (Neurontin) 800 MG TABLET 1 TAB PO TID BACK PAIN (Reported) Isosorbide Mononitrate (Isosorbide Mononitrate ER) 60 MG TAB.ER.24H 1 TAB PO DAILY (Reported) Levothyroxine Sodium 100 MCG TABLET 1 TAB PO DAILY THYROID (Reported) Nitroglycerin (Nitrostat) 0.4 MG TAB.SUBL 1 TAB SL AD PRN CHEST PAIN ( Reported) 1st sign of attack; may repeat every 5 minutes until relief; if pain persists after 3 tablets in 15 minutes, prompt medical att Ranolazine (Ranexa) 500 MG TAB.ER.12H 1 TAB PO BID heart (Reported) Tamsulosin HCl (Flomax) 0.4 MG CAP.ER.24H 1 CAP PO QHS prostate Please take at bed time to avoid low blood pressure during the day. Tiotropium [place] (Spiriva) 18 MCG CAP.W.DEV 1 CAP INH DAILY COPD (Reported) Past History Travel History Traveled to [place] past 21 day No Medical History Neurological: NONE EENT: NONE Cardiovascular: CARDIAC STENTS CABG CAROTID ARTERY BYPASS DEFIBRILLATOR Respiratory: COPD Gastrointestinal: NONE Hepatic: NONE Renal: NONE Musculoskeletal: NONE Psychiatric: NONE Endocrine: hypothyroidism Blood Disorders: DVT Cancer(s): NONE SPRAY I PAINTER/Reproductive: NONE History of MRSA: No History of VRE: No History of CDIFF: No Surgical History Surgical History: CABG, CAROTID ARTECTOMY nerve thermoablation to reduce back pain Past Family/Social History Psychosocial History Who Do You Live With? spouse Services at Home: None ETOH Use: denies use Illicit Drug Use: denies illicit drug use Functional Ability ADLs Independent: dressing, eating, toileting, bathing. Ambulation: independent Exam & Diagnostic Data Last 24 Hrs of Vital Signs/I&O Vital Signs Date Time Temp Pulse Resp B/P B/P Pulse O2 O2 Flow FiO2 Mean Ox Delivery Rate 10/05 2249 97.5 90 18 129/61 97 Nasal 3.0L Cannula 10/05 2135 79 10/05 2103 98.6 86 18 133/68 96 Nasal 3.0L Cannula 10/058 97.9 86 24 132/68 97 Room Air 10/05 1816 94 Room Air 10/05 1634 97.2 87 18 131/79 94 Room Air Intake & Output 10/06 0800 10/06 0000 10/05 1600 Intake Total Output Total Balance Patient 240 lb Weight Weight Reported by Patient Measurement Method Physical Exam General Appearance Alert Skin No Rashes Skin Temp/Moisture Exam: Warm/Dry HEENT Atraumatic, PERRLA, EOMI Neck Supple Cardiovascular Regular Rate Abdomen Normal Bowel Sounds Neurological Strength at 5/5 X4 Ext, Normal Tone, Cranial Nerves 3-12 NL, Reflexes 2+ Assessment/Plan Assessment: Accoring to patient history and physical , labs were ordered in ED and CT scan without contrast was negative. We will admit the patient to follow the stroke protocal and also assess for cardiac causes of syncopal episode. We tried to interview the patient before we admit the patient to floor but he was hesitent to reply to questions and the we tried to call to her so that we could get some information about his medical condition but the phone was continuously busy. Chest CT scan showed 1.7cm irregular mass in left lower lobe. We will get consulatation from pulmonology and oncology for that. Core Measures/Miscellaneous Acute Coronary Syndrome ACS Diagnosis: No Cerebrovascular Accident CVA/TIA Diagnosis: Yes NIH Stroke Scale: Total 0 Neurological S/S of CVA: Incoherent Speech Symptom Start Date: 10/05/16 Symptom Start Time: 1824 Bedside Swallow Eval Done: Yes Result of Evaluation: Pass Days in Hospital: full admission Antithrombotic: No AFIB: No Aflutter: No Anticoagulant: Yes Evidence of Atherosclerosis: Yes LDL Assessed Within 24 Hours: No Currently on Statin: Yes Rehab Needs Assessed: Medical Eval for Rehab PT Consult Ordered: No Comment: we will order later Congestive Heart Failure CHF Diagnosis: No VTE (View Protocol) VTE Risk Factors: Age > 40, Smoking [facility] prophylaxis d/t: VTE low risk (we will give) No VTE Pharm Prophylaxis d/t: VTE low risk (he is on heparin) VTE Diagnosis: No VTE Type: NONE VTE Confirmed by (Test): NONE Sepsis (View Protocol) Severe Sepsis Present: No Septic Shock Septic Shock Present: No Miscellaneous Documentation Attending Case Discussed With: ZAIN LUND,JUNIOR CLAYTON 10/06/16 0222: Review of Systems Review of Systems Constitutional: Denies: chills, diaphoresis. Assessment/Plan As Ranked By This Provider Problem List: 1. Altered mental state Core Measures/Miscellaneous Miscellaneous Documentation Primary [facility] Patient sees these Specialists none Level of Patient Care: Telemetry Resident Review Statement Resident Statement: examined this patient, discussed with manager intern, agreed with manager intern Other Findings: Patient is 75-year-old gentleman with past medical history significant for coronary artery disease status post CABG in 1997, ischemic cardiomyopathy, congestive heart failure, status post AICD placement, hypertension, hyperthyroidism, peripheral vascular disease, history of carotid endarterectomy, status post aortic stent placement, recently admitted at [facility] in June for COPD exacerbation came to emergency room with chief complaint of worsening shortness of breath and had a syncopal episode almost 2 days ago. At that point patient suddenly collapsed and fell onto traveled resulted abdominal/ right-sided reducing it wound. While the patient was seen by physician accounts receivable assistant in ER when he was alert and oriented and answering his questions appropriately and all of a sudden he started stating and unresponsive for good 3 minutes events stroke alert was activated. All facet and patient came back responsive but his speech was garbled and his sentences were not making any sense that condition persist for a couple of minutes and after that he was back to his baseline. Head CT was done which was negative. By the time we saw the patient he was very sleepy and was not able to give us lot of history and continuously mentioning that he wanted to sleep and come in the morning. He denied any chest pain, palpitations, any headache, any urinary or bowel complaints. He was very confused and doesn't know why he was here and was not oriented to time person or place. His speech was at times didn't make any sense and he wasn't answering her questions appropriately. Of note I tried multiple times to call prior if on No given in chart but Was continuously unreachable Vital signs on admission were temperature 97.2, pulse 87, respiratory rate 18, blood pressure 131/79, pulse ox 94 on room air. Labs were WBC count 11.5, hemoglobin 13.2, hematocrit 39.4, platelet count 189, ABGs were pH 7.41/45/96/28, sodium 132, potassium 4.0, BUNs 19, creatinine 1.5, urine toxicology was negative. X-ray hip, x-ray of ankle were negative. Head CT was negative for any acute intracranial pathology CT abdomen and chest showed 1.7 cm irregular shaped left lower lobe nodule PET CT is recommended. Sigmoid diverticulosis without evidence of diverticulitis. Physical examination Sleepy but not oriented to time person and place Head atraumatic Neck supple Chest bilateral wheezes Heart S1-S2 normal with no added sounds Abdomen showed right upper quadrant Bruise, normal bowel sounds Extremities showed no edema or cyanosis Patient was not following commands appropriately but apparently no motor neurological deficit noted Assessment and plan 75-year-old male with history of CAD status post CABG, status post AICD placement, COPD, hypertension came with dyspnea/history of syncopal episode 2 days prior to admission and constipation and was noted to be altered while in the emergency room which could be due to TIA/stroke/seizure and will rule out cardiac causes for syncope as well Problem list 1. History of CAD status post CABG 2. History of hypertension 3. History of dyslipidemia 4. Altered mental status could be due to TIA/stroke 5. Elevated proBNP might be element of CHF 6. 1.7 cm irregular lung nodules 8. Recent episodes of syncope Plan We will admit patient on telemetry floor We will check serial troponins and EKGs to rule out ACS Echocardiogram Cardiology evaluation in a.m. Neurology evaluation in a.m. for TIA/stroke evaluation PTOT consultation Head CT was negative but we will do MRI in a.m. Carotid Doppler ultrasounds to rule out hemodynamic significant stenosis given his history of peripheral vascular disease/hypertension We will confirm CMR in the morning but we will continue all his important medications Patient passed bedside evaluation if needed or if his condition deteriorate we will request formal swallow evaluation Neuro checks every 4 hours Neurology evaluation in a.m. We will check EEG to rule out seizures Heart healthy diet Pharmacological DVT prophylaxis Patient is full code ZAIN LUND, [facility] 10/06/16 0319: Attending MD Review Statement Attending Statement Attending MD Statement: examined this patient, discuss w/resident/PA/TRAINING AND QUALITY MANAGER, agreed w/resident/PA/TRAINING AND QUALITY MANAGER Attending Assessment/Plan: 75 yo M with h/o COPD, PATTI, HTN, CAD s/p CABG, ischemic CMP, chronic systolic CHF (EF 35-40%), s/p AICD + PPM and PVD s/p aortic aneurysm repair and femoral artery stent (2013), Rt carotid endarterectomy, CBP, CKD stage 3B, last admitted to [facility] (June 2016) for COPDE, is brought in by family for dyspnea, constipation and unwitnessed syncopal episode 2 days ago. History is as obtained from ER notes, we were unable to reach family and patient was altered, uncooperative. Per ER records, patient reports having coughing spells that resulted in a syncopal episode 2 days ago with resultant fall and bruising to right chest. Patient was alert, oriented on initial ER evaluation, however he had a 5-7 minute episode of unresponsiveness where his eyes were open but he was aphasic and then kept repeating same words again and again with garbled speech. Blood glucose was 131, stroke alert was called. He made full recovery in the ER with no recollection of events. Dr. Ha spoke with Dr. Pugh and since patient had complete recovery, no reason for tPA. However, on my evaluation, patient was uncooperative and wanted to sleep. After persistent requests, he sat up for us, answered a few questions but could not give an appropriate response as to why he was at the hospital. He was incoherent at times. VSS. Limited neuro exam, incoherent speech, disoriented, otherwise power and sensation intact, no obvious cranial nerve deficit. Unable to perform gait and cerebellar signs as patient not cooperative. Chest b/l reduced air entry, with expiratory wheeze. Labs: WBC 11.5, H/H 13.2/39.4, macrocytic anemia, Na 132, creat 1.5 (baseline), Mag 1.5, ammonia <9, LFTs normal, trop neg, thyroid functions normal. UA neg, Utox neg. Alcohol <10. AB.1/45/96/28. CT head: no acute pathology. CT chest/abd/pelvis: LLL 1.7 cm irregular nodule ?lung neoplasm. Left ankle/hip Xray: neg. EKG: SR, nonspecific IVCD. Echo (2016): EF 35-40%, mild to moderate , moderate MR and TR with mild to mod pulm htn. 1. Altered mental status, acute delirium of unclear etiology. Acute stroke vs. Seizure are in the differential. Syncope ?vasovagal vs. Cardiogenic. ?Metabolic encephalopathy. Thyroid functions are normal. Utox is negative. No clear source of infection. Tele admit, monitor for arrhythmias, neurochecks, MRI head in AM, carotid dopplers, rule out ACS, echo, EEG, Neuro and Cardio consult. We need to obtain more collateral information from family. Possible need for AICD and PPM interoggation. Continue aspirin, plavix and high dose statin. PT/OT/ speech eval. Patient passed bedside swallow done in ER. Replete electrolytes magnesium > 2.0 and K > 4.0. Check B12 and folic acid levels. 2. Mild COPD exacerbation. TRC nebs, rapid prednisone taper 40--> 30-->20-->10 then stop. Continue spiriva and symbicort. Patient will need eventual outpatient Pulm follow up for further evaluation of the LLL nodule (new). 3. Leukocytosis likely reactive. No UTI or pneumonia. Panculture, monitor off antibiotics. DVT ppx Hep SC. Full code (this needs to be discussed as well). CMR needs to be confirmed in AM.
--- NOTE | 2016-10-05 23:50 | RADIOLOGY REPORT ---
EXAMINATION: XR ANKLE, LEFT CLINICAL INFORMATION: Fall 2 days ago. Pain. COMPARISON: None TECHNIQUE: 3 views of the left ankle. FINDINGS: The bones and soft tissues are normal. No fracture. Alignment is anatomic. Joint spaces are maintained. No joint effusion. IMPRESSION: Normal left ankle.
--- NOTE | 2016-10-05 23:52 | RADIOLOGY REPORT ---
EXAMINATION: XR HIP, LEFT CLINICAL INFORMATION: Fall 2 days ago. Left hip pain. COMPARISON: None TECHNIQUE: Two views of the left hip. FINDINGS: No fracture of pelvis or left hip. Mild degenerative joint narrowing and superior lateral acetabular small spurs of both hips. Patient has had prior stent of the aorta iliac arteries. Stent in the proximal left thigh. Surgical clips in the right and left groin. Contrast within the collecting system from IV contrast injected for CT chest today. IMPRESSION: No fracture of left hip. Mild degenerative joint disease of hips.
--- NOTE | 2016-10-06 03:21 | Admission Certification ---
Admission Certification Certification Statement - As attending physician, I certify that at the time of - admission, based on clinical presentation, severity of - symptoms, need for further diagnostic testing and - therapeutic interventions, and risk of adverse outcomes - without in-hospital treatment, in my clinical assessment, - this patient requires an acute hospital stay for a minimum - of two nights or longer. I have also considered psychsocial - factors such as support system, advanced age, financial - issues, cognitive issues, and failed out-patient treatments, - past re-admission history, safety of patient, and lack of - compliance as applicable. Specific rationale supporting this admission is: Altered mental status.
[2016-10-06 07:36] LABS: ABSOLUTE BASOPHIL COUNT 0 /CUMM (0.0-0.2); ABSOLUTE EOSINOPHIL COUNT 0 /CUMM (0.0-0.7); ABSOLUTE GRANULOCYTE CT 6.7 /CUMM (1.4-6.5); ABSOLUTE LYMPH COUNT 0.3 /CUMM (1.2-3.4); ABSOLUTE MONOCYTE COUNT 0 /CUMM (0.10-0.60); BASOPHIL % 0.2 % (0.0-2.0); EOSINOPHIL % 0 % (0-5); GRANULOCYTE % 94.8 % (42.2-75.2); HEMATOCRIT 38.3 % (42-52); MEAN CORPUSCULAR HGB 32.9 PG (27.0-31.0); MEAN CORPUSCULAR HGB CONC 33.6 G/DL (33.0-37.0); MEAN CORPUSCULAR VOLUME 97.8 FL (80.0-94.0); MEAN PLATELET VOLUME 7.5 FL (7.4-10.4); PLATELET COUNT 178 /CUMM (130-400); RBC DISTRIBUTION WIDTH 15.8 % (11.5-14.5); RED BLOOD CELL CT 3.91 /CUMM (4.70-6.10); WHITE BLOOD CELL COUNT 7.1 /CUMM (4.8-10.8)
--- NOTE | 2016-10-06 09:27 | PN- Housestaff ---
BRYSON LUND,FACUNDO 10/06/16 0927: Subjective Follow-up For: Syncope Lung nodules CHF Hypertension Complaints: pain scale (0-10) Subjective: She was seen and examined bedside. He admits to a wheeze, but denies chest pain or blurry vision headache. He notes that he has left-sided leg and hip pain from his previous syncope at home. He also notes that he has a right-sided bruise from his fall on the right side of his upper abdomen. Review of Systems Constitutional: Reports: weakness. EENTM: Reports: no symptoms. Cardiovascular: Reports: no symptoms. Respiratory: Reports: wheezing. Gastrointestinal: Reports: no symptoms. Genitourinary: Reports: no symptoms. Musculoskeletal: Reports: no symptoms. Skin: Reports: no symptoms. Neurological/Psychological: Reports: no symptoms. Hematologic/Endocrine: Reports: no symptoms. Immunologic/Allergic: Reports: other. Objective Last 24 Hrs of Vital Signs/I&O Vital Signs Date Time Temp Pulse Resp B/P B/P Pulse O2 O2 Flow FiO2 Mean Ox Delivery Rate 10/06 1502 97.9 73 18 137/79 94 Nasal 2.0L Cannula 10/06 1150 98.4 96 145/86 96 Nasal Cannula 10/06 0946 99.1 100 20 128/71 10/06 0946 99.1 100 20 120/71 10/06 0945 99.1 100 20 128/71 10/06 0734 99.2 104 18 126/64 92 Room Air 10/06 0538 97.1 100 22 140/79 93 Room Air 10/05 2249 97.5 90 18 129/61 97 Nasal 3.0L Cannula 10/05 2135 79 10/05 2103 98.6 86 18 133/68 96 Nasal 3.0L Cannula 10/058 97.9 86 24 132/68 97 Room Air 10/05 1816 94 Room Air Intake & Output 10/06 1600 10/06 0800 10/06 0000 Intake Total Output Total Balance Patient 240 lb 240 lb Weight Weight Reported by Patient Reported by Patient Measurement Method Physical Exam General Appearance: Alert, Oriented X3, Cooperative, No Acute Distress Skin: No Rashes, No Breakdown, No Significant Lesion Skin Temp/Moisture Exam: Warm/Dry Sepsis Skin Exam (color): Normal for Ethnicity HEENT: Atraumatic, PERRLA, EOMI, Mucous Membr. moist/pink Neck: Supple Cardiovascular: Regular Rate, Normal S1, Normal S2, No Murmurs, Gallops, Rubs Lungs: scattered wheezes Abdomen: Normal Bowel Sounds, Soft, No Hepatospenomegaly Neurological: Normal Speech, Strength at 5/5 X4 Ext, Sensation Intact, Cranial Nerves 3-12 NL, Reflexes 2+ Extremities: No Edema, Normal Pulses Vascular: Normal Pulses Sepsis Peripheral Pulse Location: Radial Sepsis Peripheral Pulse Exam: Normal Current Medications: Current Medications Sig/Penny Start time Last Medication Dose Route Stop Time Status Admin Acetaminophen 650 MG Q6P PRN 10/06 003 AC PO Acetaminophen 1,000 MG Q12P PRN 10/06 0030 AC IV Albuterol Sulfate 2 PUF Q4P PRN 10/06 0200 AC INH Albuterol Sulfate 3 ML ONCE ONE 10/05 2100 DC 10/05 INH 10/05 2100 213 Aspirin 81 MG DAILY 10/06 1000 AC 10/06 PO 0946 Budesonide/ 2 PUF BID 10/06 0033 AC 10/06 Formoterol Fumarate INH 0945 Carvedilol 6.25 MG BID 10/06 1000 AC 10/06 PO 0946 Clopidogrel Bisulfate 75 MG DAILY 10/06 1000 AC 10/06 PO 0946 Heparin Sodium 0 .STK-MED ONE 10/06 0106 DC (Porcine) .ROUTE Heparin Sodium 5,000 UNIT Q8 10/06 0024 AC 10/06 (Porcine) SC 1415 Ipratropium Plessis 2.5 ML ONCE ONE 10/05 2100 DC 10/05 INH 10/05 2100 2133 Isosorbide 60 MG DAILY 10/06 1000 AC 10/06 Mononitrate PO 0946 Levothyroxine Sodium 0.1 MG DAILY AC 10/06 0700 AC 10/06 PO 0712 Magnesium Sulfate 1 GM Q2H 10/06 0430 DC 10/06 Dextrose/Water 100 ML IV 10/06 0829 0608 Methylprednisolone 0 .STK-MED ONE 10/05 2110 DC .ROUTE Methylprednisolone 125 MG ONCE ONE 10/05 2100 DC 10/05 IV 10/05 2100 210 Prednisone 10 MG DAILY 10/09 1000 AC PO 10/09 1001 Prednisone 20 MG DAILY 10/08 1000 AC PO 10/08 1001 Prednisone 30 MG DAILY 10/07 1000 AC PO 10/07 1001 Prednisone 40 MG DAILY 10/06 1000 CAN PO Prednisone 40 MG DAILY 10/06 1000 CAN PO 10/10 0959 Prednisone 40 MG DAILY 10/06 1000 DC 10/06 PO 10/06 1001 0947 Ranolazine 500 MG BID 10/06 1000 AC 10/06 PO 0945 Tamsulosin HCl 0.4 MG AT BEDTIME 10/060 AC PO Tiotropium Plessis 1 PUF DAILY 10/06 1000 AC 10/06 INH 0945 Last 24 Hrs of Lab/Abimael Results Last 24 Hrs of Labs/Mics: Laboratory Tests 10/06/16 0730: CBC w Diff MAN DIFF ORDERED, RBC 3.91 L, MCV 97.8 H, MCH 32.9 H, RDW 15.8 H, MPV 7.5, Gran % 94.8 H, Lymphocytes % 4.7 L, Monocytes % 0.3 L, Eosinophils % 0, Basophils % 0.2, Absolute Granulocytes 6.7 H, Absolute Lymphocytes 0.3 L, Absolute Monocytes 0 L, Absolute Eosinophils 0, Absolute Basophils 0, Platelet Estimate ADEQUATE, Normochromic RBCs VERIFIED, Polychromasia , Anisocytosis 1+ , PUBS MCHC 33.6 10/06/16 0616: Anion Gap 10, Estimated GFR 54 L, BUN/Creatinine Ratio 15.4, Troponin I 0.05, Vitamin B12 371, Folate 16.9 10/06/16 0031: Troponin I Cancelled 10/05/16 2306: Urine Opiates Screen < 100.00, Methadone Screen < 40, Barbiturate Screen < 60, Ur Phencyclidine Scrn < 6.00, Amphetamines Screen < 100, U Benzodiazepines Scrn < 85, Urine Cocaine Screen < 50, Urine Cannabis Screen < 5.00, Urine Color YEL, Urine Clarity CLEAR, Urine pH 6.0, Ur Specific Wayne 1.010, Urine Protein NEG, Urine Ketones NEG, Urine Nitrite NEG, Urine Bilirubin NEG, Urine Urobilinogen 1.0, Ur Leukocyte Esterase MOD H, Ur Microscopic SEDIMENT EXAMINED, Urine RBC FEW H, Urine WBC 1-3 H, Urine Hemoglobin TRACE-INTACT H, Urine Glucose NEG 10/05/161919: pH 7.41, pCO2 45, pO2 96, HCO3 28, ABG O2 Sat (Measured) 96.0, Carboxyhemoglobin 1 L, O2 Concentration % 3L, Temperature 98.6, O2 Delivery Method NC, Phlebotomy Draw Site RIGHT RADIAL 07/18/17 1912: Ammonia < 9 L Microbiology 10/05 2306 URINE ROUT: Urine Culture - RES 10/05 2100 BLOOD: Blood Culture - RES 10/05 193 BLOOD: Blood Culture - RES 10/05 185 LOWER RESP: Respiratory Culture - CAN Cancelled: SPECIMEN NOT RECEIVED IN LABORATORY 10/05 1854 LOWER RESP: Gram Stain - CAN Cancelled: SPECIMEN NOT RECEIVED IN LABORATORY Assessment/Plan Assessment: Assessment Patient is 75-year-old man with past medical history significant for coronary artery disease status post CABG in 1997, ischemic cardiomyopathy, congestive heart failure, status post AICD placement, hypertension, hyperthyroidism, peripheral vascular disease, history of carotid endarterectomy, status post aortic stent placement, chronic kidney disease, recently admitted at [facility] in June for COPD exacerbation who came to the emergency room with chief complaint of worsening shortness of breath and had a syncopal episode. In the ED while being questioned he became unresponsive. He is being worked up in telemetry for syncope. Plan 1. Syncope and altered mental status: due to acute delirium versus stroke versus seizure versus vasovagal or cardiogenic syncope versus metabolic encephalopathy. * Vitals are normal and bedside pulse ox is around 95 on 2 L of air. * Thyroid functions are normal. * Utox is negative. * No clear source of infection. WBCs were 11.5 last night and today are 7.1. * He has a hyponatremia of 132 * Iron and B12 is normal at 371, folate is normal at 16.9 * Patient's creatinine is 1.3, his normal values are around the high ones. * His glucose is 134 * Blood gas is normal. * Serial troponins and EKG are normal * Monitor for arrhythmias, neurochecks * Echo shows left ventricular ejection fraction to be 20%, moderate aortic stenosis but is a technically difficult study. As per cardiology there is no evidence of decompensated congestive heart failure at this time * Dopplers show no evidence to suggest hemodynamically significant stenosis of greater than 50% diameter reduction * He will need an MRI, EEG, neuro consult * As per cardiology his initial syncope in the setting of cough was more consistent with a vasovagal episode with his syncope in the ER remaining unclear. Order put in for [employer] ICD interrogation in [employer]. * Continue aspirin, plavix and high dose statin. 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 * PT/OT/ speech eval. * Patient passed bedside swallow done in ER. * Replete electrolytes magnesium > 2.0 and K > 4.0. 2. Mild COPD exacerbation: Was seen by Dr. Cummings in the past. * TRC nebs, rapid prednisone taper 40--> 30-->20-->10 then stop. * Continue spiriva and symbicort. * Patient will need eventual outpatient Pulm follow up for further evaluation of the LLL nodule. 3. Leukocytosis likely reactive: Panculture, monitor off antibiotics. DVT ppx Hep SC. Full code Problem List: 1. COPD exacerbation 2. Syncope Pain Ratin Pain Location: . Pain Goal: Pain 4 or less Pain Plan: . Tomorrow's Labs & Rationales: . SHANE JOSEPH MD 10/06/16 5700: Attending MD Review Statement Attending Statement Attending MD Statement: examined this patient, discuss w/resident/PA/PAINTER HAND, agreed w/resident/PA/PAINTER HAND, reviewed EMR data (avail), reviewed images, amended to note Attending Assessment/Plan: The patient was seen and discussed with house staff. Agree with plan of care as above. Appreciate Cardiology input.
--- NOTE | 2016-10-06 11:03 | ECHOCARDIOGRAM REPORT ---
EMILY FRANCO Age: 75 : 1940 Gender: M Exam Date: 10/06/2016 08:31 Exam Location: ER Ht (in): 72 Wt (lb): 240 BSA: 2.38 BP: 140 / 79 Ordering Physician: JUNIOR COLBY MD Referring Physician: JUNIOR COLBY MD Technologist: Evelio Amaya DAVID Room Number: 16 Indications: Hypertension Rhythm: Technical Quality: Technically difficult study FINDINGS Left Ventricle Mild left ventricular dilatation. Left ventricular wall thickness mildly increased. Moderate global hypokinesis with severe hypokinesis of the inferior wall and anteroseptum. Left ventricular ejection fraction is estimated at 20 %. Right Ventricle Normal right ventricular size. Mildly reduced right ventricular global systolic function. Catheter/pacemaker wire in the right ventricular cavity. Right Atrium Normal right atrial size. Left Atrium Mild left atrial dilatation. Mitral Valve Mild mitral annular calcification. No mitral stenosis. Mild mitral regurgitation. Aortic Valve Trileaflet aortic valve. Moderate aortic stenosis (CAITLYN 1.2 cm2; mean gradient 12 mmHg). Trace aortic regurgitation. Tricuspid Valve Structurally normal tricuspid valve. Mild tricuspid regurgitation. Unable to estimate the right ventricular systolic pressure. Pulmonic Valve Pulmonic valve not well visualized, grossly normal. Pericardium No pericardial effusion. Great Vessels Normal size aortic root and proximal ascending aorta. CONCLUSIONS Technically difficult study. Definity contrast was used. Mild left ventricular dilatation. Left ventricular wall thickness mildly increased. Moderate global hypokinesis with severe hypokinesis of the inferior wall and anteroseptum. Left ventricular ejection fraction is estimated at 20 %. Normal right ventricular size. Mildly reduced right ventricular global systolic function. Catheter/pacemaker wire in the right ventricular cavity. Mild left atrial dilatation. Moderate aortic stenosis (CAITLYN 1.2 cm2; mean gradient 12 mmHg). Nathan Arce M.D. (Electronically Signed) Final Date: 06 October 2016 11:02 MEASUREMENTS (Male / Female) Normal Values 2D ECHO LV Diastolic Diameter PLAX 6.2 cm 4.2 - 5.9 / 3.9 - 5.3 cm LV Systolic Diameter PLAX 5.8 cm 2.1 - 4.0 cm LV Fractional Shortening PLAX 6.5 % 25 - 46 % LV Ejection Fraction 2D Teich 14.1 % IVS Diastolic Thickness 1.4 cm LVPW Diastolic Thickness 1.2 cm LV Relative Wall Thickness 0.4 RV Internal Dim ED PLAX 3.5 cm 1.9 - 3.8 cm LVOT Diameter 2.2 cm Aortic Root Diameter 3.1 cm LA Systolic Diameter LX 4.5 cm 3.0 - 4.0 / 2.7 - 3.8 cm LV Ejection Fraction MOD BP 31.9 % >= 55 % LV Diastolic Length 4C 8.1 cm 6.9 - 10.3 cm LV Diastolic Area 4C 37.5 cm LV Diastolic Volume MOD 4C 143.0 cm LV Ejection Fraction MOD 4C 31.5 % LV Stroke Volume MOD 4C 45.0 cm LV Systolic Length 4C 7.7 cm LV Systolic Area 4C 29.9 cm LV Systolic Volume MOD 4C 98.0 cm LV Ejection Fraction MOD 2C 32.8 % LV Diastolic Volume 4C AL 147.0 cm 85 - 139 / 69 - 109 cm LV Systolic Volume 4C AL 98.7 cm LV Ejection Fraction 4C AL 32.9 % LV Stroke Volume 4C AL 48.3 cm LV Ejection Fraction 2C AL 31.0 % LA Volume 48.0 cm 18 - 58 / 22 - 52 cm Ascending Aorta Diameter 3.4 cm DOPPLER AV Peak Velocity 245.0 cm/s AV Peak Gradient 24.0 mmHg AV Mean Velocity 160.0 cm/s AV Mean Gradient 12.0 mmHg AV Velocity Time Integral 46.6 cm LVOT Peak Velocity 75.9 cm/s LVOT Peak Gradient 2.3 mmHg LVOT Mean Velocity 47.1 cm/s LVOT Mean Gradient 1.0 mmHg LVOT Velocity Time Integral 15.2 cm LVOT Stroke Volume 57.8 cm AV Area Cont Eq vti 1.2 cm AV Area Cont Eq pk 1.2 cm MV Peak Velocity 128.0 cm/s MV Peak Gradient 6.6 mmHg MV Mean Velocity 78.6 cm/s MV Mean Gradient 3.0 mmHg Mitral E Point Velocity 107.0 cm/s MV PHT Velocity 128.0 cm/s MV Deceleration Jay 560.0 cm/s MV Pressure Half Time 68.6 ms MV Area PHT 3.2 cm MV Deceleration Time 141.0 ms TR Peak Velocity 267.0 cm/s TR Peak Gradient 28.5 mmHg Right Atrial Pressure 10.0 mmHg Pulmonary Artery Systolic Pressu 38.5 mmHg Right Ventricular Systolic Press 38.5 mmHg PV Peak Velocity 131.0 cm/s PV Peak Gradient 6.9 mmHg PV Mean Velocity 86.2 cm/s PV Mean Gradient 4.0 mmHg PV Velocity Time Integral 21.4 cm LV E' Lateral Velocity 6.7 cm/s Mitral E to LV E' Lateral Ratio 15.9 LV E' Septal Velocity 3.1 cm/s Mitral E to LV E' Septal Ratio 34.3
--- NOTE | 2016-10-06 11:59 | Cons- Cardiology ---
See Addendum General Information and HPI Consulting Request Date of Consult: 10/06/16 Requested By: MAINOR PITTMAN MD Reason for Consult: Syncope Primary weatherseal technician: Dr. Seay Source of Information: patient, old records History of Present Illness: This is a 75-year-old male with a past medical history of ischemic cardiomyopathy with prior CABG, prior PCI, known occluded vein grafts, carotid artery disease, peripheral arterial disease, chronic systolic congestive heart failure, prior AICD, aortic aneurysm, nicotine dependence, aortic stenosis, CKD and COPD who presents to [facility] with a chief complaint of syncope. The patient tells me he was in his usual state of health but started coughing and then had a syncopal episode which was unwitnessed. He does not note having any chest pain, dyspnea, or palpitations prior to the event. Denies loss of bowel or bladder. Per the medical record the patient had an episode in the emergency room where he was unresponsive and a stroke alert was called. CT scan was reported as no evidence of acute intracranial pathology. On my bedside interview with the patient he was mildly somnolent but appeared to answer questions appropriately although his recollection of the events was somewhat limited. He denied subjective fever, orthopnea, paroxysmal nocturnal dyspnea, nausea, vomiting, or diaphoresis. Allergies/Medications Allergies: Coded Allergies: NO KNOWN ALLERGIES (06/23/14) Home Med List: Acetaminophen 325 MG CAPSULE 1 CAP PO Q6 PRN PAIN (Reported) Albuterol Sulfate (Proair Hfa) 90 MCG HFA.AER.AD 2 PUF INH Q4 COPD Aspirin (Aspirin*) 81 MG TAB.CHEW 1 TAB PO DAILY heart (Reported) Atorvastatin Calcium (Lipitor) 40 MG TABLET 1 TAB PO DAILY cholesterol ( Reported) Budesonide/Formoterol Fumarate (Symbicort 160-4.5 Mcg Inhaler) 160 MCG-4.5 MCG/ ACTUATION HFA.AER.AD 2 PUF INH BID COPD (Reported) Carvedilol (Coreg) 3.125 MG TABLET 6.25 MG PO BID HEART Clopidogrel Bisulfate (Clopidogrel) 75 MG TABLET 1 TAB PO DAILY BLOOD THINNER (Reported) Furosemide (Lasix) 20 MG TABLET 1 TAB PO DAILY DIURETIC (Reported) Gabapentin (Neurontin) 800 MG TABLET 1 TAB PO TID BACK PAIN (Reported) Isosorbide Mononitrate (Isosorbide Mononitrate ER) 60 MG TAB.ER.24H 1 TAB PO DAILY (Reported) Levothyroxine Sodium 100 MCG TABLET 1 TAB PO DAILY THYROID (Reported) Nitroglycerin (Nitrostat) 0.4 MG TAB.SUBL 1 TAB SL AD PRN CHEST PAIN ( Reported) 1st sign of attack; may repeat every 5 minutes until relief; if pain persists after 3 tablets in 15 minutes, prompt medical att Ranolazine (Ranexa) 500 MG TAB.ER.12H 1 TAB PO BID heart (Reported) Tamsulosin HCl (Flomax) 0.4 MG CAP.ER.24H 1 CAP PO QHS prostate Please take at bed time to avoid low blood pressure during the day. Tiotropium Cropsey (Spiriva) 18 MCG CAP.W.DEV 1 CAP INH DAILY COPD (Reported) Current Medications: Current Medications Sig/Penny Start time Last Medication Dose Route Stop Time Status Admin Acetaminophen 650 MG Q6P PRN 10/06 0030 AC PO Acetaminophen 1,000 MG Q12P PRN 10/06 0030 AC IV Albuterol Sulfate 2 PUF Q4P PRN 10/06 0200 AC INH Albuterol Sulfate 3 ML ONCE ONE 10/05 2100 DC 10/05 INH 10/05 2100 2134 Aspirin 81 MG DAILY 10/06 1000 AC 10/06 PO 0946 Budesonide/ 2 PUF BID 10/06 0033 AC 10/06 Formoterol Fumarate INH 0945 Carvedilol 6.25 MG BID 10/06 1000 AC 10/06 PO 0946 Clopidogrel Bisulfate 75 MG DAILY 10/06 1000 AC 10/06 PO 0946 Heparin Sodium 0 .STK-MED ONE 10/06 0106 DC (Porcine) .ROUTE Heparin Sodium 5,000 UNIT Q8 10/06 0024 AC 10/06 (Porcine) SC 0100 Ipratropium Cropsey 2.5 ML ONCE ONE 10/05 2100 DC 10/05 INH 10/05 2100 2133 Isosorbide 60 MG DAILY 10/06 1000 AC 10/06 Mononitrate PO 0946 Levothyroxine Sodium 0.1 MG DAILY AC 10/06 0700 AC 10/06 PO 0712 Magnesium Sulfate 1 GM Q2H 10/06 0430 DC 10/06 Dextrose/Water 100 ML IV 10/06 0829 0608 Methylprednisolone 0 .STK-MED ONE 07/18 2110 DC .ROUTE Methylprednisolone 125 MG ONCE ONE 10/05 2100 DC 10/05 IV 10/05 2100 210 Prednisone 10 MG DAILY 10/09 1000 AC PO 10/09 1001 Prednisone 20 MG DAILY 10/08 1000 AC PO 10/08 1001 Prednisone 30 MG DAILY 10/07 1000 AC PO 10/07 1001 Prednisone 40 MG DAILY 10/06 1000 CAN PO Prednisone 40 MG DAILY 10/06 1000 CAN PO 10/10 0959 Prednisone 40 MG DAILY 10/06 1000 DC 10/06 PO 10/06 1001 0947 Ranolazine 500 MG BID 10/06 1000 AC 10/06 PO 0945 Tamsulosin HCl 0.4 MG AT BEDTIME 10/06 2200 AC PO Tiotropium Cropsey 1 PUF DAILY 10/06 1000 AC 10/06 INH 0945 Review of Systems Review of Systems: Review of systems as per HPI. The remainder of a 10 point review of systems was reviewed and was otherwise negative. Past History Travel History Traveled to [place] past 21 day No Medical History Neurological: NONE EENT: NONE Cardiovascular: CARDIAC STENTS CABG CAROTID ARTERY BYPASS DEFIBRILLATOR Respiratory: COPD Gastrointestinal: NONE Hepatic: NONE Renal: NONE Musculoskeletal: NONE Psychiatric: NONE Endocrine: hypothyroidism Blood Disorders: DVT Cancer(s): NONE TRANSFER STATION ATTENDANT/Reproductive: NONE Surgical History Surgical History: CABG, CAROTID ARTECTOMY nerve thermoablation to reduce back pain Psychosocial History Who Do You Live With? spouse Services at Home: None ETOH Use: denies use Illicit Drug Use: denies illicit drug use Functional Ability ADLs Independent: dressing, eating, toileting, bathing. Ambulation: independent ECHO Results (as available) Report: Left ventricular cavity size normal. Left ventricular wall thickness mildly increased. Moderate to severe hypokinesis of the mid to basal inferior wall. Mild distal anteroseptal/anteroapical hypokinesis. Left ventricular ejection fraction is estimated at 45 %. Catheter/pacemaker wire in the right ventricular cavity. Normal right ventricular size and function. Mild left atrial dilatation. Moderate mitral regurgitation. [id number] aortic stenosis (CAITLYN 1.4 cm2 by continuity with a mean gradient of 13 mmHg). Moderate tricuspid regurgitation. RVSP > 45 mmHg. Exam & Diagnostic Data Vital Signs and I&O Vital Signs Date Time Temp Pulse Resp B/P B/P Pulse O2 O2 Flow FiO2 Mean Ox Delivery Rate 10/06 945 99.1 100 20 128/71 07/19 0946 99.1 100 20 120/71 10/06 0945 99.1 100 20 128/71 10/06 0734 99.2 104 18 126/64 92 Room Air 10/06 0538 97.1 100 22 140/79 93 Room Air 10/05 2249 97.5 90 18 129/61 97 Nasal 3.0L Cannula 10/05 2135 79 / 2103 98.6 86 18 133/68 96 Nasal 3.0L Cannula 10/05 2058 97.9 86 24 132/68 97 Room Air 10/05 1816 94 Room Air 10/05 1634 97.2 87 18 131/79 94 Room Air Intake & Output 10/06 1600 10/06 0800 10/06 0000 10/05 1600 10/05 0800 10/05 0000 Intake Total Output Total Balance Patient 240 lb Weight Weight Reported by Patient Measurement Method Physical Exam: General: no apparent distress. Alert. Eyes: No obvious scleral icterus. HEENT: No jugular venous distention or abnormal jugular venous pulsations. Cardiovascular: Normal intensity S1/S2. AICD noted. One out of 6 systolic murmur. Respiratory: Lungs clear to auscultation bilaterally. Abdomen: Soft, nontender with no guarding or rebound tenderness. Musculoskeletal: No clubbing or cyanosis noted, no edema Skin: Warm Neurologic: No gross focal deficits noted. Lymph: No gross lymphadenopathy. Labs/Abimael Results: Laboratory Tests 10/06 10/06 10/06 0730 0616 0031 Chemistry Sodium (137 - 145 mmol/L) 132 L Potassium (3.5 - 5.1 mmol/L) 4.3 Chloride (98 - 107 mmol/L) 96 L Carbon Dioxide (22 - 30 mmol/L) 26 Anion Gap (5 - 16) 10 BUN (9 - 20 mg/dL) 20 Creatinine (0.7 - 1.2 mg/dL) 1.3 H Estimated GFR (>60 ml/min) 54 L BUN/Creatinine Ratio (7 - 25 %) 15.4 Troponin I (<0.11 ng/ml) 0.05 Cancelled Vitamin B12 (239 - 931 pg/mL) 371 Folate (2.76 - 20.0 ng/mL) 16.9 Hematology CBC w Diff MAN DIFF ORDERED WBC (4.8 - 10.8 /CUMM) 7.1 RBC (4.70 - 6.10 /CUMM) 3.91 L Hgb (14.0 - 18.0 G/DL) 12.9 L Hct (42 - 52 %) 38.3 L MCV (80.0 - 94.0 FL) 97.8 H MCH (27.0 - 31.0 PG) 32.9 H RDW (11.5 - 14.5 %) 15.8 H Plt Count (130 - 400 /CUMM) 178 MPV (7.4 - 10.4 FL) 7.5 Gran % (42.2 - 75.2 %) 94.8 H Lymphocytes % (20.5 - 51.1 %) 4.7 L Monocytes % (1.7 - 9.3 %) 0.3 L Eosinophils % (0 - 5 %) 0 Basophils % (0.0 - 2.0 %) 0.2 Absolute Granulocytes (1.4 - 6.5 /CUMM) 6.7 H Absolute Lymphocytes (1.2 - 3.4 /CUMM) 0.3 L Absolute Monocytes (0.10 - 0.60 /CUMM) 0 L Absolute Eosinophils (0.0 - 0.7 /CUMM) 0 Absolute Basophils (0.0 - 0.2 /CUMM) 0 Platelet Estimate (ADEQUATE) ADEQUATE Normochromic RBCs VERIFIED Polychromasia Anisocytosis 1+ PUBS MCHC (33.0 - 37.0 G/DL) 33.6 10/056 1920 Blood Gas pH (7.35 - 7.45 PH) 7.41 pCO2 (35 - 45 TORR) 45 pO2 (80 - 100 TORR) 96 HCO3 (21 - 28 MEQ/L) 28 ABG O2 Sat (Measured) (>96.0 %) 96.0 Carboxyhemoglobin (1.5 - 5.0 %) 1 L O2 Concentration % 3L Temperature (97.0 - 100.0 FARH) 98.6 O2 Delivery Method NC Miscellaneous Phlebotomy Draw Site RIGHT RADIAL Toxicology Urine Opiates Screen (>2000 NG/ML) < 100.00 Methadone Screen (>300 NG/ML) < 40 Barbiturate Screen (>200 NG/ML) < 60 Ur Phencyclidine Scrn (>25 NG/ML) < 6.00 Amphetamines Screen (>1000 NG/ML) < 100 U Benzodiazepines Scrn (>200 NG/ML) < 85 Urine Cocaine Screen (>300 NG/ML) < 50 Urine Cannabis Screen (>50 NG/ML) < 5.00 Urines Urine Color (YEL,AMB,STR) YEL Urine Clarity (CLEAR) CLEAR Urine pH (5.0 - 8.0) 6.0 Ur Specific [place] (1.001 - 1.035) 1.010 Urine Protein (NEG,<30 MG/DL) NEG Urine Ketones (NEG) NEG Urine Nitrite (NEG) NEG Urine Bilirubin (NEG) NEG Urine Urobilinogen (0.1 - 1.0 EU/dl) 1.0 Ur Leukocyte Esterase (NEG) MOD H Ur Microscopic SEDIMENT EXAMINED Urine RBC (0 - 5 /HPF) FEW H Urine WBC (0 - 2 /HPF) 1-3 H Urine Hemoglobin (NEG) TRACE-INTACT H Urine Glucose (N MG/DL) NEG 10/05 1637 Chemistry Sodium (137 - 145 mmol/L) 132 L Potassium (3.5 - 5.1 mmol/L) 4.0 Chloride (98 - 107 mmol/L) 92 L Carbon Dioxide (22 - 30 mmol/L) 29 Anion Gap (5 - 16) 11 BUN (9 - 20 mg/dL) 19 Creatinine (0.7 - 1.2 mg/dL) 1.5 H Estimated GFR (>60 ml/min) 46 L BUN/Creatinine Ratio (7 - 25 %) 12.7 Glucose (65 - 99 mg/dL) 134 H Calcium (8.4 - 10.2 mg/dL) 9.4 Magnesium (1.6 - 2.3 mg/dL) 1.5 L Total Bilirubin (0.2 - 1.3 mg/dL) 1.3 AST (17 - 59 U/L) 20 ALT (21 - 72 U/L) 25 Alkaline Phosphatase (< 127 U/L) 92 Ammonia (9 - 30 umol/L) < 9 L Troponin I (<0.11 ng/ml) 0.02 [id number]-Yuxwewoabiv Pept (<125 pg/mL) 3160 H Total Protein (6.3 - 8.2 g/dL) 6.5 Albumin (3.5 - 5.0 g/dL) 4.2 Globulin (1.9 - 4.2 gm/dL) 2.3 Albumin/Globulin Ratio (1.1 - 2.2 %) 1.8 TSH (0.270 - 4.200 uIU/mL) 1.700 Thyroxine (T4) (4.5 - 10.9 ug/dL) 10.9 Hematology CBC w Diff NO MAN DIFF REQ WBC (4.8 - 10.8 /CUMM) 11.5 H RBC (4.70 - 6.10 /CUMM) 3.98 L Hgb (14.0 - 18.0 G/DL) 13.2 L Hct (42 - 52 %) 39.4 L MCV (80.0 - 94.0 FL) 98.9 H MCH (27.0 - 31.0 PG) 33.1 H RDW (11.5 - 14.5 %) 16.4 H Plt Count (130 - 400 /CUMM) 189 MPV (7.4 - 10.4 FL) 7.3 L Gran % (42.2 - 75.2 %) 85.9 H Lymphocytes % (20.5 - 51.1 %) 6.5 L Monocytes % (1.7 - 9.3 %) 6.7 Eosinophils % (0 - 5 %) 0.2 Basophils % (0.0 - 2.0 %) 0.7 Absolute Granulocytes (1.4 - 6.5 /CUMM) 9.9 H Absolute Lymphocytes (1.2 - 3.4 /CUMM) 0.7 L Absolute Monocytes (0.10 - 0.60 /CUMM) 0.8 H Absolute Eosinophils (0.0 - 0.7 /CUMM) 0 Absolute Basophils (0.0 - 0.2 /CUMM) 0.1 PUBS MCHC (33.0 - 37.0 G/DL) 33.4 Toxicology Serum Alcohol (<10 MG/DL) < 10.0 Diagnostic Data EKG Results Tracing was personally reviewed and shows sinus tachycardia 104 bpm with borderline intraventricular conduction delay and poor R-wave progression Other Results Chest CT: No evidence for acute traumatic injury. 1.7 cm irregular shaped left lower lobe nodule. Especially in the setting of mild emphysema, this is suspicious for a lung neoplasm. Recommendation is for correlation with PET/CT for further tissue characterization. Sigmoid diverticulosis without evidence of diverticulitis. Aortobiiliac stent graft in place with aneurysmal dilation of the infrarenal abdominal aorta unchanged from prior exam. Head CT: IMPRESSION: No acute intracranial pathology. Echo: Technically difficult study. Definity contrast was used. Mild left ventricular dilatation. Left ventricular wall thickness mildly increased. Moderate global hypokinesis with severe hypokinesis of the inferior wall and anteroseptum. Left ventricular ejection fraction is estimated at 20 %. Normal right ventricular size. Mildly reduced right ventricular global systolic function. Catheter/pacemaker wire in the right ventricular cavity. Mild left atrial dilatation. Moderate aortic stenosis (CAITLYN 1.2 cm2; mean gradient 12 mmHg). Nathan Arce M.D. (Electronically Signed) Final Date: 06 October 2016 11:02 Assessment/Plan Assessment/Plan 1. Syncope/AMS 2. COPD with active smoking 3. Chronic systolic congestive heart failure, compensated 4. History of coronary artery disease with prior CABG and prior PCI 5. History of AICD, aproaching DREW 6. Hx of Carotid artery disease/aortic aneurysm and peripheral vascular disease 7. History of ischemic cardiomyopathy with aortic stenosis 8. Chronic renal insufficiency 9. Lung nodule on chest CT The patient's initial syncope in the setting of cough was more consistent with a vasovagal event although the reported episode in the emergency room is of unclear etiology. Please put in an order for [employer] ICD interogation in Simple; the telemetry nurses can then do a [facility] transmission so we can look for any arrhythmic events. No evidence of acute coronary syndrome or decompensated congestive heart failure at this time. Agree with neurology consultation. He should be continued on carvedilol. Recommend adding ZULAY inhibitor or ARB therapy given the severity of his the ischemic cardiomyopathy ( if no objection from his mechanism assembler). Critical importance of smoking cessation was discussed. Defer to the medical team regarding additional evaluation of the suspicious lung nodule seen on chest CT. Brady Arce MD [facility] Consult Acknowledgment - Thank you for your consult request.
--- NOTE | 2016-10-06 12:42 | ULTRASOUND REPORT ---
EXAMINATION: DUPLEX BILATERAL CAROTID ULTRASOUND CLINICAL INFORMATION: Stroke COMPARISON: None. TECHNIQUE: Duplex bilateral carotid US was performed using real-time ultrasound and Doppler techniques (integrating B-mode 2D vascular images, Doppler spectral analysis and color flow Doppler imaging). These techniques were utilized to interrogate the extracranial carotid and vertebral arteries bilaterally. The degree of stenosis is based off criteria similar to NASCET. FINDINGS: 1. On the right: Plaque is present at the carotid bifurcation but velocity measurements are normal and do not suggest a stenosis of greater than 50% diameter reduction in the right ICA. The right ECA demonstrates a mild stenosis with peak systolic velocity of under 200 cm/s. The vertebral artery is patent demonstrating antegrade flow. 2. On the left: Plaque is present at the carotid bifurcation but velocity measurements are normal and do not suggest a stenosis of greater than 50% diameter reduction in the left ICA. The left external carotid artery shows no significant stenosis. The vertebral artery is patent demonstrating antegrade flow. IMPRESSION: Plaque is present in the internal carotid arteries but velocity measurements are normal and there is no evidence to suggest a hemodynamically significant stenosis of greater than 50% diameter reduction.
[2016-10-06 17:58] VITALS: BP 140/80
[2016-10-06 21:23] VITALS: BP 106/60
--- NOTE | 2016-10-07 02:02 | Event Note ---
Event Note Event Note: Notified by Microbiolgy about 1 positive blood culture for gram + cocci. Patient was afebrile and WBC is within normal limits we will watch the patient off antibiotics for now
[2016-10-07 08:01] VITALS: BP 114/60
--- NOTE | 2016-10-07 09:18 | PN- Cardiology ---
Subjective Subjective: Telemetry reviewed. Sinus rhythm throughout. Noted one blood cultures positive for gram-positive cocci. However no elevated white blood count or other signs of infection. Patient is comfortable "trying to get some sleep". Feeling a little cold. Objective Vital Signs and I&Os Vital Signs Date Time Temp Pulse Resp B/P B/P Pulse O2 O2 Flow FiO2 Mean Ox Delivery Rate 10/07 0801 97.8 78 20 114/60 93 Nasal Cannula 10/07 0000 95 Nasal 2.0L Cannula 10/06 2232 86 122/60 10/06 2232 86 122/60 10/06 2232 86 122/60 10/06 2123 98.2 84 20 106/60 91 10/06 1758 97.9 85 20 140/80 92 Nasal 2.0L Cannula 10/06 1502 97.9 73 18 137/79 94 Nasal 2.0L Cannula 10/06 1150 98.4 96 145/86 96 Nasal Cannula 10/06 0946 99.1 100 20 128/71 10/06 0946 99.1 100 20 120/71 10/06 0945 99.1 100 20 128/71 Intake & Output 10/07 1600 10/07 0800 10/07 0000 10/06 1600 10/06 0800 10/06 0000 Intake Total 100 250 Output Total 650 450 Balance -550 -200 Intake, Oral 100 250 Number 0 Bowel Movements Output, Urine 650 450 Patient 240 lb 240 lb Weight Weight Reported by Patient Reported by Patient Measurement Method Physical Exam: On physical exam patient comfortable Head normocephalic atraumatic Eyes sclera anicteric conjunctiva showed no pallor extraocular muscles were normal Neck no jugular venous distention no thyroid masses carotid endarterectomy scar no thyroid masses no palpable nodes Chest lungs distant air entry bilaterally scattered wheezes Heart regular rhythm with a grade 1-2/6 systolic murmur and somewhat distant heart sounds. Abdomen protuberant soft no organomegaly Extremities no clubbing cyanosis or pedal edema Neurological no gross motor or sensory deficits Current Medications: Current Medications Sig/Penny Start time Last Medication Dose Route Stop Time Status Admin Acetaminophen 650 MG Q6P PRN 10/06 0030 AC PO Acetaminophen 1,000 MG Q12P PRN 10/06 0030 AC IV Albuterol Sulfate 2 PUF Q4P PRN 10/06 0200 AC INH Aspirin 81 MG DAILY 10/06 1000 AC 10/06 PO 0946 Budesonide/ 2 PUF BID 10/06 0033 AC 10/06 Formoterol Fumarate INH 2229 Carvedilol 6.25 MG BID 10/06 1000 AC 10/06 PO 2232 Clopidogrel Bisulfate 75 MG DAILY 10/06 1000 AC 10/06 PO 0946 Heparin Sodium 5,000 UNIT Q8 10/06 0024 AC 10/07 (Porcine) SC 0649 Isosorbide 60 MG DAILY 10/06 1000 AC 10/06 Mononitrate PO 0946 Levothyroxine Sodium 0.1 MG DAILY AC 10/06 0700 AC 10/07 PO 0649 Polyethylene Glycol 17 GM DAILY 10/06 1935 AC 10/06 PO 2229 Prednisone 10 MG DAILY 10/09 1000 AC PO 10/09 1001 Prednisone 20 MG DAILY 10/08 1000 AC PO 10/08 1001 Prednisone 30 MG DAILY 10/07 1000 AC PO 10/07 1001 Prednisone 40 MG DAILY 10/06 1000 DC 10/06 PO 10/06 1001 0947 Ranolazine 500 MG BID 10/06 1000 AC 10/06 PO 2232 Senna/Docusate Sodium 2 TAB DAILY PRN 10/06 1945 AC 10/06 PO 2229 Tamsulosin HCl 0.4 MG AT BEDTIME 10/06 2200 AC 10/06 PO 2232 Tiotropium Lena 1 PUF DAILY 10/06 1000 AC 10/06 INH 0945 Results Last 48 Hrs of Labs/Mics: Laboratory Tests 10/07/16 0636: Anion Gap 8, Estimated GFR 50 L, BUN/Creatinine Ratio 18.6 10/06/16 0730: CBC w Diff MAN DIFF ORDERED, RBC 3.91 L, MCV 97.8 H, MCH 32.9 H, RDW 15.8 H, MPV 7.5, Gran % 94.8 H, Lymphocytes % 4.7 L, Monocytes % 0.3 L, Eosinophils % 0, Basophils % 0.2, Absolute Granulocytes 6.7 H, Absolute Lymphocytes 0.3 L, Absolute Monocytes 0 L, Absolute Eosinophils 0, Absolute Basophils 0, Platelet Estimate ADEQUATE, Normochromic RBCs VERIFIED, Polychromasia , Anisocytosis 1+ , PUBS MCHC 33.6 10/06/16 0616: Anion Gap 10, Estimated GFR 54 L, BUN/Creatinine Ratio 15.4, Troponin I 0.05, Vitamin B12 371, Folate 16.9 10/06/16 0031: Troponin I Cancelled 10/05/16 2306: Urine Opiates Screen < 100.00, Methadone Screen < 40, Barbiturate Screen < 60, Ur Phencyclidine Scrn < 6.00, Amphetamines Screen < 100, U Benzodiazepines Scrn < 85, Urine Cocaine Screen < 50, Urine Cannabis Screen < 5.00, Urine Color YEL, Urine Clarity CLEAR, Urine pH 6.0, Ur Specific [place] 1.010, Urine Protein NEG, Urine Ketones NEG, Urine Nitrite NEG, Urine Bilirubin NEG, Urine Urobilinogen 1.0, Ur Leukocyte Esterase MOD H, Ur Microscopic SEDIMENT EXAMINED, Urine RBC FEW H, Urine WBC 1-3 H, Urine Hemoglobin TRACE-INTACT H, Urine Glucose NEG 10/05/161919: pH 7.41, pCO2 45, pO2 96, HCO3 28, ABG O2 Sat (Measured) 96.0, Carboxyhemoglobin 1 L, O2 Concentration % 3L, Temperature 98.6, O2 Delivery Method NC, Phlebotomy Draw Site RIGHT RADIAL 10/05/16 191: Ammonia < 9 L 10/05/16 1637: Anion Gap 11, Estimated GFR 46 L, BUN/Creatinine Ratio 12.7, Glucose 134 H, Calcium 9.4, Magnesium 1.5 L, Total Bilirubin 1.3, AST 20, ALT 25, Alkaline Phosphatase 92, Troponin I 0.02, Igm-J-Pifhyoerxjd Pept 3160 H, Total Protein 6.5, Albumin 4.2, Globulin 2.3, Albumin/Globulin Ratio 1.8, TSH 1.700, Thyroxine (T4) 10.9, CBC w Diff NO MAN DIFF REQ, RBC 3.98 L, MCV 98.9 H, MCH 33.1 H, RDW 16.4 H, MPV 7.3 L, Gran % 85.9 H, Lymphocytes % 6.5 L, Monocytes % 6.7, Eosinophils % 0.2, Basophils % 0.7, Absolute Granulocytes 9.9 H, Absolute Lymphocytes 0.7 L, Absolute Monocytes 0.8 H, Absolute Eosinophils 0, Absolute Basophils 0.1, PUBS MCHC 33.4, Serum Alcohol < 10.0 Microbiology 10/05 1929 BLOOD: Blood Culture - COMP STAPH COAGULASE NEGATIVE Recent Imaging Studies: Carotid ultrasound revealed Carotid ultrasound revealedPlaque is present in the internal carotid arteries but velocity measurements are normal and there is no evidence to suggest a hemodynamically significant stenosis of greater than 50% diameter reduction. A CT scan of the head revealedNo acute intracranial pathology CT scan of the chest suggestNo evidence for acute traumatic injury. 1.7 cm irregular shaped left lower lobe nodule. Especially in the setting of mild emphysema, this is suspicious for a lung neoplasm. Recommendation is for correlation with PET/CT for further tissue characterization. Sigmoid diverticulosis without evidence of diverticulitis. Aortobiiliac stent graft in place with aneurysmal dilation of the infrarenal abdominal aorta unchanged from prior exam. Assessment/Plan Assessment/Plan In summary this 75-year-old gentleman has the following problems 1. Syncope/AMS 2. COPD with active smoking 3. Chronic systolic congestive heart failure, compensated 4. History of coronary artery disease with prior CABG and prior PCI 5. History of AICD, aproaching DREW 6. Hx of Carotid artery disease/aortic aneurysm and peripheral vascular disease 7. History of ischemic cardiomyopathy with aortic stenosis 8. Chronic renal insufficiency 9. Lung nodule on chest CT I suspect the syncope was posttussive and therefore related to vasovagal physiology. However pacemaker interrogation is pending. His left ventricular function as seen significant deterioration out rejection fraction of 20%. I believe we should start him on Sacubitril-Valsartan 24/26 mg twice a day. I may consider ischemic testing as an outpatient if ejection fraction remains depressed. May be a candidate for Corlanor, if we cannot increase beta blockers as he has a resting heart rate of 80-90. For the time being workup for positive blood culture, and notification to his consumer relations specialist of possible lung nodule and need for follow-up is suggested. Will maximize medications for cardiomyopathy as he will tolerate. No clinical or CT scan evidence of congestive heart failure at the moment. Continue telemetry? Yes
--- NOTE | 2016-10-07 11:41 | PN- Housestaff ---
BRYSON LUND,FACUNDO 10/07/16 1117: Subjective Follow-up For: Syncope COPD exacerbation CAD Complaints: patient states that he has not moved his bowels in 5 days Tele-Events Since Last Visit: Overnight patient was in normal sinus rhythm 72-84. No events Subjective: Patient states that he is feeling tired, cold, hungry. He states that he is sore on the left side of his body from the fall. He states that he hasn't moved his bowels in 5 days. He denies headache or stomachache weakness diarrhea. Review of Systems Constitutional: Reports: no symptoms. Cardiovascular: Reports: no symptoms. Respiratory: Reports: cough, wheezing. Gastrointestinal: Reports: constipation. Musculoskeletal: Reports: muscle pain. Objective Last 24 Hrs of Vital Signs/I&O Vital Signs Date Time Temp Pulse Resp B/P B/P Pulse O2 O2 Flow FiO2 Mean Ox Delivery Rate 10/07 0934 114/60 10/07 0934 114/60 10/07 0934 114/60 10/07 0801 97.8 78 20 114/60 93 Nasal Cannula 10/07 0000 95 Nasal 2.0L Cannula 10/06 2232 86 122/60 10/06 2232 86 122/60 10/06 2232 86 122/60 10/06 2123 98.2 84 20 106/60 91 10/06 1758 97.9 85 20 140/80 92 Nasal 2.0L Cannula 10/06 1502 97.9 73 18 137/79 94 Nasal 2.0L Cannula 10/06 1150 98.4 96 145/86 96 Nasal Cannula Intake & Output 10/07 1600 10/07 0800 10/07 0000 Intake Total 100 250 Output Total 650 450 Balance -550 -200 Intake, Oral 100 250 Number 0 Bowel Movements Output, Urine 650 450 Physical Exam General Appearance: Alert, Oriented X3, Cooperative, No Acute Distress Skin: No Rashes, No Breakdown, large bruise on the right side of his abdomen. Skin Temp/Moisture Exam: Warm/Dry HEENT: Atraumatic, EOMI, Mucous Membr. moist/pink Cardiovascular: Regular Rate, Normal S1, Normal S2, No Murmurs, Gallops, Rubs Lungs: scattered expiratory wheezes. Abdomen: Normal Bowel Sounds, Soft, No Tenderness, No Masses Neurological: Normal Speech Extremities: No Edema, tender left lower extremity from his fall. Vascular: Normal Pulses, Pulses Symmetrical Current Medications: Current Medications Sig/Penny Start time Last Medication Dose Route Stop Time Status Admin Acetaminophen 650 MG Q6P PRN 10/06 0030 AC PO Acetaminophen 1,000 MG Q12P PRN 10/06 0030 AC IV Albuterol Sulfate 3 ML BID 10/07 2200 AC 10/07 INH 1117 Albuterol Sulfate 2 PUF Q4P PRN 10/06 0200 AC INH Aspirin 81 MG DAILY 10/06 1000 AC 10/07 PO 0915 Bisacodyl 10 MG ONCE ONE 10/07 0915 DC 10/07 [place] 10/07 0916 0933 Budesonide/ 2 PUF BID 10/06 0033 AC 10/07 Formoterol Fumarate INH 0934 Carvedilol 6.25 MG BID 10/06 1000 AC 10/07 PO 0934 Clopidogrel Bisulfate 75 MG DAILY 10/06 1000 AC 10/07 PO 0934 Heparin Sodium 5,000 UNIT Q8 10/06 0024 AC 10/07 (Porcine) SC 0649 Isosorbide 60 MG DAILY 10/06 1000 AC 10/07 Mononitrate PO 0934 Levothyroxine Sodium 0.1 MG DAILY AC 10/06 0700 AC 10/07 PO 0649 Polyethylene Glycol 17 GM DAILY 10/06 1935 AC 10/07 PO 0934 Prednisone 10 MG DAILY 10/09 1000 AC PO 10/09 1001 Prednisone 20 MG DAILY 10/08 1000 AC PO 10/08 1001 Prednisone 30 MG DAILY 10/07 1000 DC 10/07 PO 10/07 1001 0934 Ranolazine 500 MG BID 10/06 1000 AC 10/07 PO 0934 Senna/Docusate Sodium 2 TAB DAILY PRN 10/06 1945 AC 10/06 PO 2229 Tamsulosin HCl 0.4 MG AT BEDTIME 10/06 220 AC 10/06 PO 2232 Tiotropium [place] 1 PUF DAILY 10/06 1000 AC 10/07 INH 0934 Last 24 Hrs of Lab/Abimael Results Last 24 Hrs of Labs/Mics: Laboratory Tests 10/07/16 0636: Anion Gap 8, Estimated GFR 50 L, BUN/Creatinine Ratio 18.6 Assessment/Plan Assessment: Assessment Patient is 75-year-old man with past medical history significant for coronary artery disease status post CABG in 1997, ischemic cardiomyopathy, congestive heart failure, status post AICD placement, hypertension, hyperthyroidism, peripheral vascular disease, history of carotid endarterectomy, status post aortic stent placement, chronic kidney disease, recently admitted at [facility] in June for COPD exacerbation who came to the emergency room with chief complaint of worsening shortness of breath and had a syncopal episode. In the ED while being questioned he became unresponsive. He is being worked up in telemetry for syncope. Plan 1. Syncope and altered mental status: due to acute delirium versus stroke versus seizure versus vasovagal or cardiogenic syncope versus metabolic encephalopathy. * Vitals are normal and bedside pulse ox is around 97 on 2 L of air. * Thyroid functions are normal. * Utox is negative. * He has a hyponatremia of 136 * Iron and B12 is normal at 371, folate is normal at 16.9 * Patient's creatinine is 1.4, his normal values are around the high ones. * His glucose is 136 * Blood gas is normal. * Serial troponins and EKG are normal * Monitor for arrhythmias, neurochecks * Echo shows left ventricular ejection fraction to be 20%, moderate aortic stenosis but is a technically difficult study. As per cardiology there is no evidence of decompensated congestive heart failure at this time. * Dopplers show no evidence to suggest hemodynamically significant stenosis of greater than 50% diameter reduction * Currently no neuro note. He will need an MRI, EEG, possibly outpatient if his mental status continues to be good. * As per cardiology his initial syncope in the setting of cough was more consistent with a vasovagal episode with his syncope in the ER remaining unclear. Order put in for [employer] ICD interrogation in [facility]. * As per cardiology, start him on Sacubitril-Valsartan 24/26 mg twice a day and consider ischemic testing as an outpatient if ejection fraction remains depressed. May be a candidate for Corlanor, if we cannot increase beta blockers as he has a resting heart rate of 80-90. * Continue aspirin, plavix and high dose statin. * PT/OT/ speech eval. * Patient passed bedside swallow done in ER. * Potassium 4.2. Replete electrolytes magnesium > 2.0 and K > 4.0. 2. Mild COPD exacerbation: Was seen by Dr. Cummings in the past. * TRC nebs, rapid prednisone taper 40--> 30-->20-->10 then stop. Today he is to receive 30 mg prednisone. * Continue spiriva and symbicort. * Patient will need eventual outpatient Pulm follow up for further evaluation of the LLL nodule. 3. Resolved leukocytosis likely reactive: Panculture, monitor off antibiotics. * Patient is growing gram-positive cocci in clusters in one blood culture. WBCs are 7.1 and he is afebrile so we will watch him off antibiotics at this time. DVT ppx Hep SC. Full code Problem List: 1. Left hip pain 2. Left ankle pain 3. Abdominal contusion 4. Altered mental state 5. COPD exacerbation 6. History of automatic internal cardiac defibrillator (AICD) 7. Syncope Pain Ratin Pain Location: Left robertson and left hip Pain Goal: Pain 4 or less Pain Plan: Tylenol for pain Tomorrow's Labs & Rationales: cbc DVT/Prophylaxis: mechanical, pharmacological SHANE JOSEPH MD 10/07/162127: Attending MD Review Statement Attending Statement Attending MD Statement: examined this patient, discuss w/resident/PA/CUSTOMS INVESTIGATOR, agreed w/resident/PA/CUSTOMS INVESTIGATOR, reviewed EMR data (avail), discussed with nursing, discussed with case mgmt, reviewed images, amended to note Attending Assessment/Plan: The patient was seen and discussed with house staff. On my exam the patient had significant rhonchi and wheezes c/w COPD exacerbation with exam worsening since admission. He c/o dyspnea and fatigue. Dr. Seay had suggested starting Entresto, however we discovered that the patient had been on Entresto in the past. He stated that Dr. Seay had stopped it approximately 6 months ago due to "side effect". I spoke with Dr. Seay and he will be checking his records and signing it out to the rounding broadcast producer for tomorrow. Will hold Entresto at present. Suspect it may have caused worsening renal failure. With worsening respiratory status, will begin IV Solumedrol this evening. Continue aerosol and add Mucinex. Will re-assess in morning. If significantly improved will consider conversion to Prednisone. Will check pulse ox on RA and with ambulation tomorrow if significantly improved. Patient was advised that EEG was negative.
--- NOTE | 2016-10-07 13:36 | Patient Discharge Instructions ---
Discharge Instructions General Discharge Information You were seen/treated for: syncope altered mental status Special Instructions: 1.please f/u with station captain after 1 week of discharge. 2. please f/u with your pcp within 1 week of discharge. 3. please f/u with a cancer genetic counselor after d/c for the pulmonary nodules. Diet Recommended Diet: Heart Healthy Activity Full Activity/No Limits: Yes (as tolerated) Acute Coronary Syndrome Inclusion Criteria At DC or during hospital stay patient has or had the following: ACS DIAGNOSIS No Discharge Core Measures Meds if any: Prescribed or Continued at Discharge Meds if any: NOT Prescribed or Continued at Discharge Congestive Heart Failure Inclusion Criteria At DC or during hospital stay patient has or had the following: CHF DIAGNOSIS No Discharge Core Measures Meds if any: Prescribed or Continued at Discharge Meds if any: NOT Prescribed or Continued at Discharge Cerebrovascular accident Inclusion Criteria At DC or during hospital stay patient has or had the following: CVA/TIA Diagnosis No Discharge Core Measures Meds if any: Prescribed or Continued at Discharge Meds if any: NOT Prescribed or Continued at Discharge Venous thromboembolism Inclusion Criteria VTE Diagnosis No VTE Type NONE VTE Confirmed by (Test) NONE Discharge Core Measures - Per Current guidelines, there needs to be overlap - treatment for the first 5 days of Warfarin therapy. - If discharged on Warfarin prior to 5 days of - overlap therapy, the patient will need to be - assessed for post discharge needs including - *Post discharge parental anticoagulation - *Warfarin and/or parental anticoagulation education - *Follow up date to check INR post discharge At least 5 days overlap therapy as Inpatient No Meds if any: Prescribed or Continued at Discharge Note: Overlap Therapy is Warfarin and Anticoagulant Meds if any: NOT Prescribed or Continued at Discharge
[2016-10-07] MEDS ORDERED: ENTRESTO 24 MG1 EACH PO ×2 (13:43→14:45)
--- NOTE | 2016-10-07 13:50 | ELECTROENCEPHALOGRAM REPORT ---
Electroencephalogram Report Electroencephalogram Results Date of service: 10/07/16 Attending MD: SHANE JOSEPH MD Color Stripper: moe Tse EEG Number: [id number] Test Utilizes: 10-20 system, 21 lead 18 channel digital recording Pertinent Hx/Physical/Neuro Findings/Clin Diagnosis: r/o seizure Inpatient Medications: Current Medications Sig/Penny Start time Last Medication Dose Route Stop Time Status Admin Acetaminophen 650 MG Q6P PRN 10/06 0030 AC PO Acetaminophen 1,000 MG Q12P PRN 10/06 0030 AC IV Albuterol Sulfate 3 ML BID 10/07 2200 AC 10/07 INH 1117 Albuterol Sulfate 2 PUF Q4P PRN 10/06 0200 AC INH Aspirin 81 MG DAILY 10/06 1000 AC 10/07 PO 0915 Bisacodyl 10 MG ONCE ONE 10/07 0915 DC 10/07 [place] 10/07 0916 0933 Budesonide/ 2 PUF BID 10/06 0033 AC 10/07 Formoterol Fumarate INH 0934 Carvedilol 6.25 MG BID 10/06 1000 AC 10/07 PO 0934 Clopidogrel Bisulfate 75 MG DAILY 10/06 1000 AC 10/07 PO 0934 Heparin Sodium 5,000 UNIT Q8 10/06 0024 AC 10/07 (Porcine) SC 0649 Isosorbide 60 MG DAILY 10/06 1000 AC 10/07 Mononitrate PO 0934 Levothyroxine Sodium 0.1 MG DAILY AC 10/06 0700 AC 10/07 PO 0649 Polyethylene Glycol 17 GM DAILY 10/06 1935 AC 10/07 PO 0934 Prednisone 10 MG DAILY 10/09 1000 AC PO 10/09 1001 Prednisone 20 MG DAILY 10/08 1000 AC PO 10/08 1001 Prednisone 30 MG DAILY 10/07 1000 DC 10/07 PO 10/07 1001 0934 Ranolazine 500 MG BID 10/06 1000 AC 10/07 PO 0934 Senna/Docusate Sodium 2 TAB DAILY PRN 10/06 1945 AC 10/06 PO 2229 Tamsulosin HCl 0.4 MG AT BEDTIME 10/06 2200 AC 10/06 PO 2232 Tiotropium [place] 1 PUF DAILY 10/06 1000 AC 10/07 INH 0934 Interpretation: Predominant posterior background rhythym is that of poorly modulated, medium voltage 6-7 CPS activity. Intermittent movement and muscle artifact is present . No focal or paroxysmal features are seen.Hyperventilation deferred. Photic stimulation revealed no further abnormalities. Impression: Abnormal EEG due to generalized slowing of the background rhythm consistent with diffuse cerebral dysfunction. No epileptiform features are noted.
--- NOTE | 2016-10-07 14:21 | Cons- Neurology ---
General Information and HPI Consulting Request Date of Consult: 10/07/16 Requested By: SHANE JOSEPH MD Reason for Consult: brief loss of consciousness History of Present Illness: 75 y.o.male with hx. of COPD, HTN and prior CEA had recent brief loss of consciousness at home in setting of cough. Presented to ER with c/o SOB on day of admission. When being interviewed, had brief alteration in awareness and speech arrest without involuntary movements. Stroke alert was called. No TPA given. Now back to baseline. No hx. of seizure or stroke EEG without paroxysmal features. CT head negative. Allergies/Medications Allergies: Coded Allergies: NO KNOWN ALLERGIES (06/23/14) Home Med List: Acetaminophen 325 MG CAPSULE 1 CAP PO Q6 PRN PAIN (Reported) Albuterol Sulfate (Proair Hfa) 90 MCG HFA.AER.AD 2 PUF INH Q4 COPD Aspirin (Aspirin*) 81 MG TAB.CHEW 1 TAB PO DAILY heart (Reported) Atorvastatin Calcium (Lipitor) 40 MG TABLET 1 TAB PO DAILY cholesterol ( Reported) Budesonide/Formoterol Fumarate (Symbicort 160-4.5 Mcg Inhaler) 160 MCG-4.5 MCG/ ACTUATION HFA.AER.AD 2 PUF INH BID COPD (Reported) Carvedilol (Coreg) 3.125 MG TABLET 6.25 MG PO BID HEART Clopidogrel Bisulfate (Clopidogrel) 75 MG TABLET 1 TAB PO DAILY BLOOD THINNER (Reported) Furosemide (Lasix) 20 MG TABLET 1 TAB PO DAILY DIURETIC (Reported) Gabapentin (Neurontin) 800 MG TABLET 1 TAB PO TID BACK PAIN (Reported) Isosorbide Mononitrate (Isosorbide Mononitrate ER) 60 MG TAB.ER.24H 1 TAB PO DAILY (Reported) Levothyroxine Sodium 100 MCG TABLET 1 TAB PO DAILY THYROID (Reported) Nitroglycerin (Nitrostat) 0.4 MG TAB.SUBL 1 TAB SL AD PRN CHEST PAIN ( Reported) 1st sign of attack; may repeat every 5 minutes until relief; if pain persists after 3 tablets in 15 minutes, prompt medical att Ranolazine (Ranexa) 500 MG TAB.ER.12H 1 TAB PO BID heart (Reported) Sacubitril/Valsartan (Entresto 24 MG-26 MG Tablet) 24 MG-26 MG TABLET 1 TAB PO BID heart health Tamsulosin HCl (Flomax) 0.4 MG CAP.ER.24H 1 CAP PO QHS prostate Please take at bed time to avoid low blood pressure during the day. Tiotropium [place] (Spiriva) 18 MCG CAP.W.DEV 1 CAP INH DAILY COPD (Reported) Review of Systems Review of Systems: + MCCLURE, pain from recent fall. No diplopia, dysarthria, chest pain, fever, chills , rash, abnormal bleeeding, weigt loss, vomiting Past History Travel History Traveled to [place] past 21 day No Medical History Neurological: NONE EENT: NONE Cardiovascular: CARDIAC STENTS CABG CAROTID ARTERY BYPASS DEFIBRILLATOR Respiratory: COPD Gastrointestinal: NONE Hepatic: NONE Renal: NONE Musculoskeletal: NONE Psychiatric: NONE Endocrine: hypothyroidism Blood Disorders: DVT Cancer(s): NONE SMASH PIECER/Reproductive: NONE Surgical History Surgical History: CABG, CAROTID ARTECTOMY nerve thermoablation to reduce back pain Psychosocial History Who Do You Live With? spouse Services at Home: None Smoking Status: Current Everyday Smoker ETOH Use: denies use Illicit Drug Use: denies illicit drug use Functional Ability ADLs Independent: dressing, eating, toileting, bathing. Ambulation: independent Exam & Diagnostic Data Vital Signs and I&O Vital Signs Date Time Temp Pulse Resp B/P B/P Pulse O2 O2 Flow FiO2 Mean Ox Delivery Rate 10/07 1126 Nasal 2.0L Cannula 10/07 1125 97 Nasal 2.0L Cannula 10/07 0934 114/60 10/07 0934 114/60 10/07 0934 114/60 10/07 0900 93 Nasal 2.0L Cannula 10/07 0801 97.8 78 20 114/60 93 Nasal Cannula 10/07 0000 95 Nasal 2.0L Cannula 10/06 2232 86 122/60 10/06 2232 86 122/60 10/06 2232 86 122/60 10/06 2123 98.2 84 20 106/60 91 10/06 1758 97.9 85 20 140/80 92 Nasal 2.0L Cannula 10/06 1502 97.9 73 18 137/79 94 Nasal 2.0L Cannula Intake & Output 10/07 1600 10/07 0800 10/07 0000 Intake Total 240 100 250 Output Total 300 650 450 Balance -60 -550 -200 Intake, Oral 240 100 250 Number 1 0 Bowel Movements Output, Urine 300 650 450 Elderly male in NAD. Head NC/AT. Speech fluent. Pupils equal. EOM's full. Face symmetric. No focal or lateralizing weakness. DTR's symmetric. JOSE ARMANDO's equal.Joint position intact. Gait untested. Assessment/Plan Assessment: #1 Transient alteration of awareness/ consciouness. Doubt TIA or seizure. Back to baseline. Exam non focal #2 Recent cough syncope Recommendations: No further neurodiagnostic studies currently anticipated Empirically suggest low dose ASA Please call if further questions. Consult Acknowledgment - Thank you for your consult request.
[2016-10-07 15:21] VITALS: BP 120/64
[2016-10-07 21:15] VITALS: BP 148/80
[2016-10-08 07:28] VITALS: BP 158/94
--- NOTE | 2016-10-08 09:57 | PN- Housestaff ---
BRYSON LUND,FACUNDO 10/08/16 0903: Subjective Follow-up For: copd exacerbation syncopal episode Complaints: pain scale (0-10) Tele-Events Since Last Visit: patient was in normal sinus rhythm rate 69-85. Subjective: Patient was seen and examined bedside. Patient complained of left-sided body pain from his fall. He also complains of his right-sided abdominal bruise but says it feels a little bit better. He complains of wheezing but he says this is his baseline. Review of Systems Constitutional: Reports: no symptoms. EENTM: Reports: no symptoms. Cardiovascular: Reports: no symptoms. Respiratory: Reports: wheezing. Gastrointestinal: Reports: constipation. Genitourinary: Reports: no symptoms. Musculoskeletal: Reports: no symptoms. Hematologic/Endocrine: Reports: bruising. Objective Last 24 Hrs of Vital Signs/I&O Vital Signs Date Time Temp Pulse Resp B/P B/P Pulse O2 O2 Flow FiO2 Mean Ox Delivery Rate 10/08 0728 98.9 83 16 158/94 92 Room Air 10/08 0000 91 CPAP 10/07 2213 98.1 16 91 Room Air 10/07 2159 76 95 10/07 2115 83 148/80 10/07 2111 85 148/80 10/07 2111 85 148/80 10/07 2111 85 148/80 10/07 1839 92 Room Air Room Air 10/07 1600 93 Nasal 2.0L Cannula 10/07 1521 97.8 87 18 120/64 92 Room Air 10/07 1126 Nasal 2.0L Cannula 10/07 1125 97 Nasal 2.0L Cannula 10/07 0934 114/60 10/07 0934 114/60 10/07 0934 11460 Intake & Output 10/08 1600 10/08 0800 10/08 0000 Intake Total 200 480 Output Total 700 Balance -500 480 Intake, Oral 200 480 Number 2 Bowel Movements Output, Urine 700 Physical Exam General Appearance: Alert, Oriented X3, Cooperative, No Acute Distress Skin: No Rashes, No Breakdown, large right-sided abdominal bruise. Skin Temp/Moisture Exam: Warm/Dry Sepsis Skin Exam (color): Normal for Ethnicity Cardiovascular: Regular Rate, Normal S1, Normal S2, No Murmurs, Gallops, Rubs Lungs: scattered wheezes Abdomen: Normal Bowel Sounds, Soft, No Tenderness, No Hepatospenomegaly, No Masses Neurological: Normal Speech Extremities: No Edema, Normal Pulses, left leg tenderness Vascular: Normal Pulses Sepsis Peripheral Pulse Location: Radial Current Medications: Current Medications Sig/Penny Start time Last Medication Dose Route Stop Time Status Admin Acetaminophen 650 MG Q6P PRN 10/06 0030 AC PO Acetaminophen 1,000 MG Q12P PRN 10/06 0030 AC IV Albuterol Sulfate 3 ML BID 10/07 2200 AC 10/07 INH 1839 Albuterol Sulfate 2 PUF Q4P PRN 10/06 0200 AC INH Aspirin 81 MG DAILY 10/07 1627 CAN PO Aspirin 81 MG DAILY 10/06 1000 AC 10/07 PO 0915 Bisacodyl 10 MG ONCE ONE 10/07 0915 DC 10/07 MI 10/07 0916 0933 Budesonide/ 2 PUF BID 10/06 0033 AC 10/07 Formoterol Fumarate INH 2111 Carvedilol 6.25 MG BID 10/06 1000 AC 10/07 PO 2111 Clopidogrel Bisulfate 75 MG DAILY 10/06 1000 AC 10/07 PO 0934 Guaifenesin 600 MG Q12 10/07 2200 AC 10/07 PO 1852 Heparin Sodium 5,000 UNIT Q8 10/06 0024 AC 10/08 (Porcine) SC 0633 Isosorbide 60 MG DAILY 10/06 1000 AC 10/07 Mononitrate PO 0934 Levothyroxine Sodium 0.1 MG DAILY AC 10/06 0700 AC 10/08 PO 0633 Methylprednisolone 40 MG BID 10/07 2200 AC 10/07 IV 1852 Patient Medication 1 ED .STK-MED ONE 10/07 1400 [place] Teaching ED 10/07 1401 Polyethylene Glycol 17 GM DAILY 10/06 1935 AC 10/07 PO 0934 Prednisone 10 MG DAILY 10/09 1000 CAN PO 10/09 1001 Prednisone 20 MG DAILY 10/08 1000 CAN PO 10/08 1001 Prednisone 30 MG DAILY 10/07 1000 DC 10/07 PO 10/07 1001 0934 Ranolazine 500 MG BID 10/06 1000 AC 10/07 PO 2111 Senna/Docusate Sodium 2 TAB DAILY PRN 10/06 1945 AC 10/06 PO 2229 Tamsulosin HCl 0.4 MG AT BEDTIME 10/06 2200 AC 10/07 PO 2111 Tiotropium [place] 1 PUF DAILY 10/06 1000 AC 10/07 INH 0934 Orders ECHO Findings: Mild left ventricular dilatation. Left ventricular wall thickness mildly increased. Moderate global hypokinesis with severe hypokinesis of the inferior wall and anteroseptum. Left ventricular ejection fraction is estimated at 20 %. Radiology Findings: Abnormal EEG due to generalized slowing of the background rhythm consistent with diffuse cerebral dysfunction. No epileptiform features are noted. Assessment/Plan Assessment: Assessment Patient is 75-year-old man with past medical history significant for coronary artery disease status post CABG in 1997, ischemic cardiomyopathy, congestive heart failure, status post AICD placement, hypertension, hyperthyroidism, peripheral vascular disease, history of carotid endarterectomy, status post aortic stent placement, chronic kidney disease, recently admitted at [facility] in June for COPD exacerbation who came to the emergency room with chief complaint of worsening shortness of breath and had a syncopal episode. In the ED while being questioned he became unresponsive. He is being worked up in telemetry for syncope. Plan 1. Syncope and altered mental status: due to acute delirium versus stroke versus seizure versus vasovagal or cardiogenic syncope versus metabolic encephalopathy. * Vitals are normal and bedside pulse ox is around 97 on 2 L of air. * Thyroid functions are normal. * Utox is negative. * He has a hyponatremia of 136 * Iron and B12 is normal at 371, folate is normal at 16.9 * Patient's creatinine is 1.4, his normal values are around the high ones. * Blood gas is normal. * Serial troponins and EKG are normal * Monitor for arrhythmias, neurochecks * Echo shows left ventricular ejection fraction to be 20%, moderate aortic stenosis but is a technically difficult study. As per cardiology there is no evidence of decompensated congestive heart failure at this time. * Dopplers show no evidence to suggest hemodynamically significant stenosis of greater than 50% diameter reduction * Currently no neuro note. He will need an MRI, EEG, possibly outpatient if his mental status continues to be good. * As per cardiology his initial syncope in the setting of cough was more consistent with a vasovagal episode with his syncope in the ER remaining unclear. Order put in for [employer] ICD interrogation in [employer]. * As per cardiology, he should be on ZULAY-I due to his ischemic cardiomyopathy. Start him on Sacubitril-Valsartan 24/26 mg twice a day and consider ischemic testing as an outpatient if ejection fraction remains depressed. May be a candidate for Corlanor, if we cannot increase beta blockers as he has a resting heart rate of 80-90. HOWEVER HE WAS FOUND TO HAVE HAD A PRIOR REACTION SO HE WILL NOT BE STARTED ON ENTRESTA. * Check with cardiology regarding CHF medication. * Patients is on nitrates but not hydralazine (this combination is second-line for CHF) * Continue aspirin, plavix and high dose statin. * PT/OT/ speech eval. * Patient passed bedside swallow done in ER. * Potassium 4.2. Replete electrolytes magnesium > 2.0 and K > 4.0. 2. Mild COPD exacerbation: Was seen by Dr. Cummings in the past. * Will discharge on long PO prednisone taper. * Continue spiriva and symbicort. * Need PT to check ambulation O2 - walking pulse ox. If less than 88 can qualify for home oxygen. * Smoking cessation education. * Patient will need outpatient Pulm follow up for further evaluation of the LLL nodule. 3. Resolved leukocytosis likely reactive: Panculture, monitor off antibiotics. * Patient is growing gram-positive cocci in clusters in one blood culture. WBCs are 7.1 and he is afebrile so we will watch him off antibiotics at this time. DVT ppx Hep SC. Full code Problem List: 1. Syncope 2. Left ankle pain 3. Left hip pain 4. Abdominal contusion 5. Fall 6. Altered mental state 7. COPD exacerbation Pain Ratin Pain Location: Left leg and left hip Pain Goal: Pain 4 or less Pain Plan: Tylenol Tomorrow's Labs & Rationales: Patient stable for discharge today. 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 Dr. Seay had suggested starting Entresto, however we discovered that the patient had been on Entresto in the past. He stated that Dr. Seay had stopped it approximately 6 months ago due to "side effect". Cardiology recommend adding ARB candesartan 4mg daily. Patient significantly improved will consider conversion to Prednisone. Will check pulse ox on RA and with ambulation tomorrow if significantly improved.
[2016-10-08 10:00] VITALS: BP 158/74
--- NOTE | 2016-10-08 11:37 | PN- Cardiology ---
Subjective Subjective: No dyspnea at rest. Has a nonproductive cough. No chills. Complains of some pain in his left leg without swelling. Objective Vital Signs and I&Os Vital Signs Date Time Temp Pulse Resp B/P B/P Pulse O2 O2 Flow FiO2 Mean Ox Delivery Rate 10/08 1000 158/74 10/08 1000 158/74 10/08 0959 158/74 10/08 0926 87 Room Air Room Air 10/08 0728 98.9 83 16 158/94 92 Room Air 10/08 0000 91 CPAP 10/07 2213 98.1 16 91 Room Air 10/07 2159 76 95 10/07 2115 83 148/80 10/07 2111 85 148/80 10/07 2111 85 148/80 10/07 2111 85 148/80 10/07 1839 92 Room Air Room Air 10/07 1600 93 Nasal 2.0L Cannula 10/07 1521 97.8 87 18 120/64 92 Room Air Intake & Output 10/08 1600 10/08 0800 10/08 0000 10/07 1600 10/07 0800 10/07 0000 Intake Total 200 480 720 100 250 Output Total 700 300 650 450 Balance -500 480 420 -550 -200 Intake, Oral 200 480 720 100 250 Number 2 2 0 Bowel Movements Output, Urine 700 300 650 450 Physical Exam: General: no apparent distress. Alert. Eyes: No obvious scleral icterus. HEENT: No jugular venous distention or abnormal jugular venous pulsations. Cardiovascular: Normal intensity S1/S2. AICD noted. One out of 6 systolic murmur. Respiratory: Scattered bilateral wheezes Abdomen: Soft, nontender with no guarding or rebound tenderness. Musculoskeletal: No clubbing or cyanosis noted, no edema Skin: Warm Neurologic: No gross focal deficits noted. Lymph: No gross lymphadenopathy. Current Medications: Current Medications Sig/Penny Start time Last Medication Dose Route Stop Time Status Admin Acetaminophen 650 MG Q6P PRN 10/06 0030 AC PO Acetaminophen 1,000 MG Q12P PRN 10/06 003 AC IV Albuterol Sulfate 3 ML BID 10/07 2200 AC 10/08 INH 0925 Albuterol Sulfate 2 PUF Q4P PRN 10/06 0200 AC INH Aspirin 81 MG DAILY 10/07 1627 CAN PO Aspirin 81 MG DAILY 10/06 1000 AC 10/08 PO 0959 Budesonide/ 2 PUF BID 10/06 0033 AC 10/08 Formoterol Fumarate INH 1002 Carvedilol 6.25 MG BID 10/06 1000 AC 10/08 PO 0959 Clopidogrel Bisulfate 75 MG DAILY 10/06 1000 AC 10/08 PO 1000 Guaifenesin 600 MG Q12 10/07 2200 AC 10/08 PO 1000 Heparin Sodium 5,000 UNIT Q8 10/06 0024 AC 10/08 (Porcine) SC 0633 Isosorbide 60 MG DAILY 10/06 1000 AC 10/08 Mononitrate PO 1000 Levothyroxine Sodium 0.1 MG DAILY AC 10/06 0700 AC 10/08 PO 0633 Methylprednisolone 40 MG BID 10/07 220 DC 10/07 IV 1852 Patient Medication 1 ED .STK-MED ONE 10/07 1400 [place] Teaching ED 10/07 1401 Polyethylene Glycol 17 GM DAILY 10/06 1935 AC 10/08 PO 1001 Prednisone 10 MG DAILY 10/09 1000 CAN PO 10/09 1001 Prednisone 20 MG DAILY 10/08 1000 CAN PO 10/08 1001 Prednisone 60 MG DAILY 10/08 1000 AC 10/08 PO 10/09 1001 1002 Ranolazine 500 MG BID 10/06 1000 AC 10/08 PO 1000 Senna/Docusate Sodium 2 TAB DAILY PRN 10/06 1945 AC 10/06 PO 2229 Tamsulosin HCl 0.4 MG AT BEDTIME 10/06 2199 AC 10/07 PO 2111 Tiotropium [place] 1 PUF DAILY 10/06 1000 AC 10/08 INH 0959 Results Last 48 Hrs of Labs/Mics: Laboratory Tests 10/07/16 0636: Anion Gap 8, Estimated GFR 50 L, BUN/Creatinine Ratio 18.6 Recent Imaging Studies: ICD interrogation report was personally reviewed and showed no evidence of significant sustained arrhythmia Assessment/Plan Assessment/Plan 1. Syncope/AMS 2. COPD with active smoking 3. Chronic systolic congestive heart failure, compensated 4. History of coronary artery disease with prior CABG and prior PCI 5. History of AICD, aproaching DREW 6. Hx of Carotid artery disease/aortic aneurysm and peripheral vascular disease 7. History of ischemic cardiomyopathy with aortic stenosis; EF 20% 8. Chronic renal insufficiency 9. Lung nodule on chest CT ICD interrogation confirms no detected arrhythmias/defibrillations. Blood pressure is well above goal given the patient's severe cardiomyopathy. He apparently had side effects from Entresto in the past. I think he clearly should benefit from ARB addition for improved blood pressure control and treatment of his severe cardiomyopathy. If no objection from nephrology I recommend adding candesartan 4 mg daily with plan for additional up titration as an outpatient as tolerated. Consider pulmonary consultation given the suspicious lung nodule seen on CT scan. If no objection from pulmonary we may want to consider up titrating his carvedilol in the future as well although he is currently bronchospastic. The positive blood culture appears consistent with a contaminant. Brady Arce MD [facility] Continue telemetry? No
[2016-10-08] MEDS ORDERED: [UNRECOGNIZED DRUG - OTHER] PO (11:52)
[2016-10-08] MEDS ORDERED: PREDNISONE10 M2 PO (11:57)
--- NOTE | 2016-10-08 13:03 | ULTRASOUND REPORT ---
EXAMINATION: US TRIPLEX LOWER EXTREMITY, LEFT CLINICAL INFORMATION: Left leg swelling. COMPARISON: Venous ultrasound dated 01/16/2016. TECHNIQUE: Color-flow triplex imaging with spectral analysis and compression Doppler were performed on the left lower extremity. FINDINGS: Respiratory variation, normal compression and augmented flow are noted throughout the left lower extremity. The visualized common femoral vein, proximal greater saphenous vein, femoral vein, profunda femoral vein, popliteal vein and visualized mid calf venous segments show no evidence of deep venous thrombosis. There is no Daniels's cyst. IMPRESSION: Normal triplex scan without evidence of deep venous thrombosis involving the left lower extremity.
--- NOTE | 2016-10-11 18:07 | Discharge Summary ---
Visit Information Visit Dates Admission Date: 10/05/16 Discharge Date: 10/08/16 Hospital Course Course Attending Physician: SHANE JOSEPH MD Primary Care Physician: BLAYNE LUND,[facility] Hospital Course: The patient is a 75 year old M smoker with PMH of CAD, CABG, ischemic cardiomyopathy, HTN, CHF, AICD placement, carotid endarterectomy and hypothyroidism who presented with chief complaint of shortness of breath. When he presented to ED this evening he was alert, oriented, answering questions when they were getting history from him. However during the interviewing he became unresponsive. His eyes were open but he was mute and he remained at this stage for several minutes and stroke protocal was called during that time. After a few minutes patient started talking but he was disoriented to time person and place and uttering inappropriate words. During the interview he also reported that he was admitted to hospital in June 2016 due to COPD. He also reported that he came to ED two days back because he belives he had a syncopal episode after multiple bouts of cough and a subsequent fall in which he fell on and injured the left side of his leg and right abdomen. Vital signs on admission were temperature 97.2, pulse 87, respiratory rate 18, blood pressure 131/79, pulse ox 94 on room air. Labs were WBC count 11.5, hemoglobin 13.2, hematocrit 39.4, platelet count 189, ABGs were pH 7.41/45/96/28, sodium 132, potassium 4.0, BUNs 19, creatinine 1.5, urine toxicology was negative. X-ray hip, x-ray of ankle were negative. Head CT was negative for any acute intracranial pathology CT abdomen and chest showed 1.7 cm suspicious irregularly shaped left lower lobe nodule. Sigmoid diverticulosis without evidence of diverticulitis. The patient was admitted to the tele floor for close monitoring mental status Serial troponins and EKGs were negative. Echocardiogram showed left ventricular ejection fraction to be 20%, moderate aortic stenosis but a technically difficult study. As per cardiology there was no evidence of decompensated congestive heart failure at this time. Dopplers showed no evidence to suggest hemodynamically significant stenosis of greater than 50% diameter reduction. Neurology was consulted for an MRI which was negative. Patient passed bedside evaluation. Neuro checks every 4 hours Neurology evaluation in a.m. We will check EEG to rule out seizures Allergies: Coded Allergies: NO KNOWN ALLERGIES (06/23/14) Disposition Summary Disposition Principal Diagnosis: Syncopal episode Additional Diagnosis: COPD HTN CHF Lung nodule of uknown significance Discharge Disposition: home or self care Discharge Instructions General Discharge Information Code Status: Full Code Patient's Diet: Heart Healthy Patient's Activity: As tolerated Follow-Up Instructions/Appts: 1.please f/u with product technician after 1 week of discharge. 2. please f/u with your pcp within 1 week of discharge. 3. please f/u with a vehicle sales professional after d/c for the pulmonary nodules. Medications at Discharge Discharge Medications: Continue taking these medications: Aspirin (Aspirin*) 81 MG TAB.CHEW 1 Tablet ORAL DAILY Qty = 30 Comments: Last Taken:10/08/16 Time: 10AM Atorvastatin Calcium (Lipitor) 40 MG TABLET 1 Tablet ORAL DAILY Qty = 30 Comments: Last Taken:10/07/16 Time: 5PM Ranolazine (Ranexa) 500 MG TAB.ER.12H 1 Tablet ORAL TWICE DAILY Qty = 30 Comments: Last Taken:10/08/16 Time: 10AM Clopidogrel Bisulfate (Clopidogrel) 75 MG TABLET 1 Tablet ORAL DAILY Qty = 90 Comments: Last Taken: 10/08/16 Time: 10AM Acetaminophen (Acetaminophen) 325 MG CAPSULE 1 Capsule ORAL EVERY SIX HOURS as needed for PAIN Comments: Last Taken:NOT GIVEN THIS ADMISSION Albuterol Sulfate (Proair Hfa) 90 MCG HFA.AER.AD 2 Puff Inhale through mouth Every 4 hours Qty = 1 Comments: NOT GIVEN THIS ADMISSION Tamsulosin HCl (Flomax) 0.4 MG CAP.ER.24H 1 Capsule ORAL TAKE AT BEDTIME Qty = 30 Instructions: Please take at bed time to avoid low blood pressure during the day. Comments: Last Taken: 10/07/16 Time: 10PM Tiotropium [place] (Spiriva) 18 MCG CAP.W.DEV 1 Capsule Inhale through mouth DAILY Qty = 30 Comments: Last Taken: 10/08/16 Time:10AM Carvedilol (Coreg) 3.125 MG TABLET 6.25 Milligram ORAL TWICE DAILY Qty = 30 Comments: Last Taken:10/08/16 Time: 10AM Isosorbide Mononitrate (Isosorbide Mononitrate ER) 60 MG TAB.ER.24H 1 Tablet ORAL DAILY Qty = 90 Comments: Last Taken: 10/08/16 Time: 10AM Budesonide/Formoterol Fumarate (Symbicort 160-4.5 Mcg Inhaler) 160 MCG-4.5 MCG/ ACTUATION HFA.AER.AD 2 Puff Inhale through mouth TWICE DAILY Qty = 10 Comments: Last Taken: 10/08/16 Time: 10AM Gabapentin (Neurontin) 800 MG TABLET 1 Tablet ORAL THREE TIMES DAILY Qty = 90 Comments: Last Taken: 07/13/16 Time: 10AM Levothyroxine Sodium (Levothyroxine Sodium) 100 MCG TABLET 1 Tablet ORAL DAILY Qty = 90 Comments: Last Taken:10/08/16 Time:0700 Furosemide (Lasix) 20 MG TABLET 1 Tablet ORAL DAILY Nitroglycerin (Nitrostat) 0.4 MG TAB.SUBL 1 Tablet SUBLINGUAL As Directed as needed for CHEST PAIN Instructions: 1st sign of attack; may repeat every 5 minutes until relief; if pain persists after 3 tablets in 15 minutes, prompt medical att Start taking the following new medications: Candesartan Cilexetil (Candesartan Cilexetil) 4 MG TABLET 1 Tablet ORAL DAILY Qty = 30 No Refills Prednisone (Prednisone) 10 MG TABLET 1 Tablet ORAL SEE INSTRUCTIONS Qty = 60 No Refills Instructions: 60 MG( 6 TABS) ON 10/09 - 10/10 50 MG (5 TABS) ON 10/11- 10/13 40 MG( 4 TABS) 0N 10/14 - 10/16 30 MG( 3 TABS) ON 10/17 - 10/19 20 MG( 2 TABS) ON 10/20 - 10/22 10 MG ( 1 TAB) ON 10/23 - 10/25 Comments: Last Taken:10/08/16 Time:1000 60MGS GIVEN Copies To: RICKY LUND,MEGAN Clemens; DALI LUND,ORIANA Hearn; SHANE JOSEPH MD; BLAYNE LUND, YAMILKA; ZAIN LUND,VICTORINARhina
== END 2016-10-08 17:00 | DRG 191 ==
LOC: ERH 16:21 → ERHI 21:46 → 1NO 21:46 → ERHI 10-06 14:02 → ENRESERV 10-06 14:30 → ENTRNSPT 10-06 16:54 → 1NO 10-06 17:13 → CMPTRNSPT 10-06 17:15 → 1NO 10-06 17:15 → ENPENDDIS 10-07 15:04 → EDPENDDISTM 10-08 14:02 → EDPENDDISDT 10-08 14:02 → 1NO 10-08 17:00
PROVIDERS: Emergency Medicine; Internal Medicine; ADMIT Student in an Organized Health Care Education/Training Program
DX: J44.1 Chronic obstructive pulmonary disease with (acute) exacerbation (principal); I50.22 Chronic systolic (congestive) heart failure; I35.0 Nonrheumatic aortic (valve) stenosis; I13.0 Hypertensive heart and chronic kidney disease with heart failure and stage 1 through stage 4 chronic kidney disease, or unspecified chronic kidney disease; E87.1 Hypo-osmolality and hyponatremia; R55 Syncope and collapse; R91.1 Solitary pulmonary nodule; F17.210 Nicotine dependence, cigarettes, uncomplicated; I25.10 Atherosclerotic heart disease of native coronary artery without angina pectoris; Z95.1 Presence of aortocoronary bypass graft; I25.5 Ischemic cardiomyopathy; Z95.810 Presence of automatic (implantable) cardiac defibrillator; E03.9 Hypothyroidism, unspecified; K57.90 Diverticulosis of intestine, part unspecified, without perforation or abscess without bleeding; Z95.5 Presence of coronary angioplasty implant and graft; I73.9 Peripheral vascular disease, unspecified; N18.9 Chronic kidney disease, unspecified; K59.00 Constipation, unspecified
CPT/HCPCS: 1NSP; ERO; 36415; 73502-LT; 73610-LT; 74177; 80307; 81001; 82436; 87040; 87070; 87086; 93005; 93010; 95816; 96374; 97110-GO; 97116-GO; 97161-GP; 97165-GO; 97530-GO; C8929; G0480; J0131; J1644; J2920; J2930; J3490; J7512; Q9957

== ENCOUNTER 2017-05-02 16:30 | Inpatient (IN) | payer OTHER, MEDICARE ==
[~2017-05-02] VITALS: Ht 182.9 cm; Wt 112.3 kg
[~2017-05-02 16:30] MED LIST changes: +LASIX20 M1 PO; +[UNRECOGNIZED DRUG - OTHER] PO
[2017-05-02 17:42] LABS: ABSOLUTE BASOPHIL COUNT 0 /CUMM (0.0-0.2); ABSOLUTE EOSINOPHIL COUNT 0.2 /CUMM (0.0-0.7); ABSOLUTE GRANULOCYTE CT 6.7 /CUMM (1.4-6.5); ABSOLUTE LYMPH COUNT 0.7 /CUMM (1.2-3.4); ABSOLUTE MONOCYTE COUNT 0.6 /CUMM (0.10-0.60); BASOPHIL % 0.3 % (0.0-2.0); EOSINOPHIL % 2.3 % (0-5); GRANULOCYTE % 81.4 % (42.2-75.2); HEMATOCRIT 30.9 % (42-52); MEAN CORPUSCULAR HGB 34.4 PG (27.0-31.0); MEAN CORPUSCULAR HGB CONC 33.8 G/DL (33.0-37.0); MEAN CORPUSCULAR VOLUME 101.7 FL (80.0-94.0); MEAN PLATELET VOLUME 7.9 FL (7.4-10.4); PLATELET COUNT 152 /CUMM (130-400); RBC DISTRIBUTION WIDTH 15.4 % (11.5-14.5); RED BLOOD CELL CT 3.04 /CUMM (4.70-6.10); WHITE BLOOD CELL COUNT 8.2 /CUMM (4.8-10.8)
--- NOTE | 2017-05-02 18:41 | RADIOLOGY REPORT ---
EXAMINATION: CHEST 2 VIEWS CLINICAL INFORMATION: Dyspnea. COMPARISON: 12/14/2016. TECHNIQUE: PA and lateral views of the chest were obtained. FINDINGS: The cardiac silhouette is prominent, though stable. Intact midline sternal wires are present. A single lead pacer is in unchanged position. The mediastinal and hilar contours are unremarkable. There are neither pleural effusions nor pneumothoraces. There are no consolidations. The lungs are hyperinflated. The osseous structures are stable. IMPRESSION: Stable cardiomegaly. No acute airspace disease.
--- NOTE | 2017-05-02 19:30 | ED DYSPNEA/ASTHMA COMPLAINT ---
History of Present Illness General Chief Complaint: Dyspnea (COPD, CHF, Other) Stated Complaint: SOB HX COPD Source: patient, old records Exam Limitations: no limitations Vital Signs & Intake/Output Vital Signs & Intake/Output Vital Signs Date Time Temp Pulse Resp B/P B/P Pulse O2 O2 Flow FiO2 Mean Ox Delivery Rate 05/02 2099 98.4 74 20 131/70 100 Room Air 05/02 2001 97 Nasal 2.0L Cannula 05/02 1941 99.0 88 18 121/63 94 Nasal 2.0L Cannula 05/02 1940 99.0 88 18 115/63 89 Room Air 05/02 1737 98.3 68 20 109/63 91 Room Air Allergies Coded Allergies: NO KNOWN ALLERGIES (06/23/14) Reconcile Medications Acetaminophen 325 MG CAPSULE 1 CAP PO Q6 PRN PAIN (Reported) Albuterol Sulfate (Proair Hfa) 90 MCG HFA.AER.AD 2 PUF INH Q4 COPD Aspirin (Aspirin*) 81 MG TAB.CHEW 1 TAB PO DAILY heart (Reported) Atorvastatin Calcium (Lipitor) 40 MG TABLET 1 TAB PO DAILY cholesterol ( Reported) Budesonide/Formoterol Fumarate (Symbicort 160-4.5 Mcg Inhaler) 160 MCG-4.5 MCG/ ACTUATION HFA.AER.AD 2 PUF INH BID COPD (Reported) Candesartan Cilexetil 4 MG TABLET 1 TAB PO DAILY CARDIOMYOPATHY Carvedilol (Coreg) 3.125 MG TABLET 6.25 MG PO BID HEART Clopidogrel Bisulfate (Clopidogrel) 75 MG TABLET 1 TAB PO DAILY BLOOD THINNER (Reported) Furosemide (Lasix) 20 MG TABLET 1 TAB PO DAILY DIURETIC (Reported) Gabapentin (Neurontin) 800 MG TABLET 1 TAB PO TID BACK PAIN (Reported) Isosorbide Mononitrate (Isosorbide Mononitrate ER) 60 MG TAB.ER.24H 1 TAB PO DAILY (Reported) Levothyroxine Sodium 100 MCG TABLET 1 TAB PO DAILY THYROID (Reported) Nitroglycerin (Nitrostat) 0.4 MG TAB.SUBL 1 TAB SL AD PRN CHEST PAIN ( Reported) 1st sign of attack; may repeat every 5 minutes until relief; if pain persists after 3 tablets in 15 minutes, prompt medical att Prednisone 10 MG TABLET 1 TAB PO SEE ADMIN CRITERIA COPD EXACERBATION 60 MG( 6 TABS) ON 10/09 - 10/10 50 MG (5 TABS) ON 10/11- 10/13 40 MG( 4 TABS) 0N 10/14 - 10/16 30 MG( 3 TABS) ON 10/17 - 10/19 20 MG( 2 TABS) ON 10/20 - 10/22 10 MG ( 1 TAB) ON 10/23 - 10/25 Ranolazine (Ranexa) 500 MG TAB.ER.12H 1 TAB PO BID heart (Reported) Tamsulosin HCl (Flomax) 0.4 MG CAP.ER.24H 1 CAP PO QHS prostate Please take at bed time to avoid low blood pressure during the day. Tiotropium [place] (Spiriva) 18 MCG CAP.W.DEV 1 CAP INH DAILY COPD (Reported) Triage Note: RECEIVED 76 YO MALE S/P DEFIBRILLATOR REPLACED 2 WEEKS AGO WITH HX OF COPD. PT REPORTS CHRONIC SOB, MUCH WORSE SINCE SURGURY 2 WEEKS AGO. PT USES CPAP AT NIGHT, UNABLE TO SLEEP MORE THAN ONE HOUR. O2 SATS 91% ON ROON AIR, NO C/O ACUTE CHEST PAIN. SOB ON EXERTION AND RECLINING. EKG DONE UPON ARRIVAL TO THE ED. Triage Nurses Notes Reviewed? yes Onset: Abrupt Duration: week(s): (2), constant Timing: recent history Severity: moderate, severe Activities at Onset: activity Associated Symptoms: cough, wheezing HPI: 76 year old male with PMH of copd not on home o2, CAD, CABG, ischemic cardiomyopathy, HTN, CHF, AICD placement, carotid endarterectomy and hypothyroidism former smoker presents to the ER for evaluation stating that for the past 2 weeks she's had progressive worsening shortness of breath unable to sleep and lay flat secondary to his symptoms. He denies cough fever chills no chest pain. He had his defibrillator changed at [facility] 2 weeks ago prior to the symptoms beginning ear is not on home oxygen he quit smoking one month ago. 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 no leg swelling. he does not have a neb at home (Horace Lozano) Past History Travel History Traveled to [place] past 21 day No Medical History Any Pertinent Medical History? see below for history Neurological: NONE EENT: NONE Cardiovascular: CARDIAC STENTS CABG CAROTID ARTERY BYPASS DEFIBRILLATOR Respiratory: COPD Gastrointestinal: NONE Hepatic: NONE Renal: NONE Musculoskeletal: NONE Psychiatric: NONE Endocrine: hypothyroidism Blood Disorders: DVT Cancer(s): NONE DAY CARE HOME MOTHER/Reproductive: NONE History of MRSA: No History of VRE: No History of CDIFF: No Surgical History Surgical History: CABG, CAROTID ARTECTOMY nerve thermoablation to reduce back pain Psychosocial History Who do you live with Spouse Services at Home None What is your primary language Romanian Tobacco Use: Quit >30 days ago Family History Hx Contributory? No (Horace Lozano) Review of Systems Review of Systems Constitutional: Reports: see HPI. Comments Review of systems: See HPI, All other systems negative. Constitutional, no chills no fever HEENT: no sore throat no congestion Cardiovascular: No chest pain Skin: no rashes, no change in skin Respiratory: dyspnea no cough no sputum GI: No nausea no vomiting, no diarrhea, : No dysuria No hematuria, no frequency Muscle skeletal: No joint pain, no back pain, no neck pain, Neurologic: , no headache Psych: No stress Heme/endocrine: No bruising Immunology: No lymphadenopathy (Horace Lozano) Physical Exam Physical Exam General Appearance: well developed/nourished, no apparent distress, alert, awake Respiratory: decreased breath sounds, wheezing Comments: Well-developed well-nourished person in no acute distress HEENT: Normal EENT exam; PERRL, EOMI, HEAD is atraumatic. moist mucous membranes. Neck: Supple, normal range of motion Back: Full range of motion Cardiovascular: Regular rate and rhythms no murmurs rub Respiratory: Chest nontender.There were no bony deformities, no asymmetry. No respiratory distress. .diminished breath sounds, wheezing b/l Abdomen: Soft, nontender nondistended, no appreciable organomegaly. Normal bowel sounds. No rebound/guarding, No ascites. Extremity: No edema, full range of motion of extremities, Neuro: Alert oriented x3, motor sensory normal, There were no obvious focal neurologic abnormalities. Skin: No appreciable rash on exposed skin, skin is warm and dry. Psych: Mood and affect is normal, memory and judgment is normal. Core Measures ACS in differential dx? Yes CVA/TIA Diagnosis No Sepsis Present: No Sepsis Focused Exam Completed? No (Horace Lozano) Progress Differential Diagnosis: asthma, AMI, bronchitis, costochondritis, CHF, COPD, pericarditis, pulmonary embolism, pneumonia, pneumothorax, unstable angina Plan of Care: Orders Procedure Date/time Status Heart Healthy Diet 05/03 B Active TROPONIN LEVEL 05/02 2300 Active EKG 05/02 230 Active Pathway - chart 05/02 2256 Active House Staff 05/02 2256 Active Patient Data 05/02 2256 Active ED Holding Orders 05/02 2140 Active Admit to inpatient 05/02 2140 Active Vital Signs 05/02 2140 Active Code Status 05/02 2140 Active Intake & Output 05/02 2024 Active RAPID VIRAL INFLUENZA A 05/02 1939 Complete Add-on Test (ER Only) 05/02 1756 Active B-TYPE NATRIURETIC PEP (BNP) 05/02 1652 Complete TROPONIN LEVEL 05/02 1638 Complete COMPREHENSIVE METABOLIC PANEL 05/02 1638 Complete CBC WITHOUT DIFFERENTIAL 05/02 1638 Complete EKG 05/02 1634 Active VTE Mechanical Prophylaxis 05/02 UNK Active Current Medications Sig/Penny Start time Last Medication Dose Stop Time Status Admin Heparin Sodium 5,000 UNIT Q8 05/02 2254 AC (Porcine) Methylprednisolone 125 MG ONCE ONE 05/02 1944 CAN (Solu Medrol) 05/02 1945 Laboratory Tests 05/02/172: Anion Gap 10, Estimated GFR 42 L, BUN/Creatinine Ratio 17.5, Glucose 141 H, Calcium 9.1, Total Bilirubin 0.4, AST 15 L, ALT 32, Alkaline Phosphatase 112, Troponin I 0.02, Ill-V-Injztarfngx Pept 3450 H, Total Protein 5.8 L, Albumin 3.5, Globulin 2.3, Albumin/Globulin Ratio 1.5, CBC w Diff NO MAN DIFF REQ, RBC 3.04 L, MCV 101.7 H, MCH 34.4 H, MCHC 33.8, RDW 15.4 H, MPV 7.9, Gran % 81.4 H, Lymphocytes % 8.5 L, Monocytes % 7.5, Eosinophils % 2.3, Basophils % 0.3, Absolute Granulocytes 6.7 H, Absolute Lymphocytes 0.7 L, Absolute Monocytes 0.6, Absolute Eosinophils 0.2, Absolute Basophils 0 Microbiology 05/02 1954 NASOPHARYN: Influenza Virus A & B Rapid Smear - COMP duoneb and solumedrol 125mg iv ordered. d/w pt all of his labs and xrays-88-89% on ra. 95% on 2L. pt feeling improved after tx, d/w plan of care and need for admission which he is in agreement with. case d/w dr ha agrees with plan Diagnostic Imaging: Viewed by Me: Radiology Read. Discussed w/RAD: Radiology Read. Radiology Impression: PATIENT: EMILY FRANCO JR PRESENT AGE: 76 PATIENT ACCOUNT NO: [id number] : 42 LOCATION: [facility] ORDERING PHYSICIAN: Marita PEARL SERVICE DATE: 05/02/17-1755 EXAM TYPE: RAD - XRY-CHEST XRAY, TWO VIEWS EXAMINATION: CHEST 2 VIEWS CLINICAL INFORMATION: Dyspnea. COMPARISON: 12/14/2016. TECHNIQUE: PA and lateral views of the chest were obtained. FINDINGS: The cardiac silhouette is prominent, though stable. Intact midline sternal wires are present. A single lead pacer is in unchanged position. The mediastinal and hilar contours are unremarkable. There are neither pleural effusions nor pneumothoraces. There are no consolidations. The lungs are hyperinflated. The osseous structures are stable. IMPRESSION: Stable cardiomegaly. No acute airspace disease. DICTATED BY: Cr Justin MD DATE/TIME DICTATED:05/02/171835 LEAD VULCANIZING OPERATOR:CAROL ANN DATE/TIME TRANSCRIBED:05/02/171835 CONFIDENTIAL, DO NOT COPY WITHOUT APPROPRIATE AUTHORIZATION. <Electronically signed in Other Vendor System> SIGNED BY: Cr Justin MD 05/02/17 184 Initial ED EKG: normal intervals, normal p-waves, normal QRS complex, normal sinus rhythm, pvc Prior EKG: unchanged Rhythm Strip: normal sinus rhythm (Horace Lozano) Departure Departure Time of Disposition: 2041 Disposition: STILL A PATIENT Condition: Stable Clinical Impression Primary Impression: COPD exacerbation Secondary Impressions: Hypoxia Referrals: Sayra Tang MD (PCP/Family) Departure Forms: Customer Survey General Discharge Information Admission Note Spoke With: Ximena Calhoun MD Documentation of Exam: Documentation of any treatments & extenuating circumstances including Concerns Regarding Discharge (functional status, medication knowledge or non-compliance, living conditions, etc.) that warrant an admission rather than observation: pulm consult, resp tx, iv steroids, trend labs, premature discharge would be medically harmful (Horace Lozano) PA/INDUCTION MACHINE SETTER Co-Sign Statement Statement: ED Attending supervision documentation- [X] I saw and evaluated the patient. I have also reviewed all the pertinent lab results and diagnostic results. I agree with the findings and the plan of care as documented in the PA's/INDUCTION MACHINE SETTER's documentation. [] I have reviewed the ED Record and agree with the PA's/INDUCTION MACHINE SETTER's documentation. [] Additions or exceptions (if any) to the PAs/INDUCTION MACHINE SETTER's note and plan are summarized below: [] (Jf Ha DO) Critical Care Note Critical Care Note Critical Care Time: non-applicable (Chanda PEARL,Horace)
--- NOTE | 2017-05-02 22:01 | History & Physical ---
General Information and HPI Allergies/Medications Allergies: Coded Allergies: NO KNOWN ALLERGIES (06/23/14) Home Med list Acetaminophen 325 MG CAPSULE 1 CAP PO Q6 PRN PAIN (Reported) Albuterol Sulfate (Proair Hfa) 90 MCG HFA.AER.AD 2 PUF INH Q4 COPD Aspirin (Aspirin*) 81 MG TAB.CHEW 1 TAB PO DAILY heart (Reported) Atorvastatin Calcium (Lipitor) 40 MG TABLET 1 TAB PO DAILY cholesterol ( Reported) Budesonide/Formoterol Fumarate (Symbicort 160-4.5 Mcg Inhaler) 160 MCG-4.5 MCG/ ACTUATION HFA.AER.AD 2 PUF INH BID COPD (Reported) Candesartan Cilexetil 4 MG TABLET 1 TAB PO DAILY CARDIOMYOPATHY Carvedilol (Coreg) 3.125 MG TABLET 6.25 MG PO BID HEART Clopidogrel Bisulfate (Clopidogrel) 75 MG TABLET 1 TAB PO DAILY BLOOD THINNER (Reported) Furosemide (Lasix) 20 MG TABLET 1 TAB PO DAILY DIURETIC (Reported) Gabapentin (Neurontin) 800 MG TABLET 1 TAB PO TID BACK PAIN (Reported) Isosorbide Mononitrate (Isosorbide Mononitrate ER) 60 MG TAB.ER.24H 1 TAB PO DAILY (Reported) Levothyroxine Sodium 100 MCG TABLET 1 TAB PO DAILY THYROID (Reported) Nitroglycerin (Nitrostat) 0.4 MG TAB.SUBL 1 TAB SL AD PRN CHEST PAIN ( Reported) 1st sign of attack; may repeat every 5 minutes until relief; if pain persists after 3 tablets in 15 minutes, prompt medical att Prednisone 10 MG TABLET 1 TAB PO SEE ADMIN CRITERIA COPD EXACERBATION 60 MG( 6 TABS) ON 10/09 - 10/10 50 MG (5 TABS) ON 10/11- 10/13 40 MG( 4 TABS) 0N 10/14 - 10/16 30 MG( 3 TABS) ON 10/17 - 10/19 20 MG( 2 TABS) ON 10/20 - 10/22 10 MG ( 1 TAB) ON 10/23 - 10/25 Ranolazine (Ranexa) 500 MG TAB.ER.12H 1 TAB PO BID heart (Reported) Tamsulosin HCl (Flomax) 0.4 MG CAP.ER.24H 1 CAP PO QHS prostate Please take at bed time to avoid low blood pressure during the day. 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 spouse Services at Home: None Functional Ability ADLs Independent: dressing, eating, toileting, bathing. Ambulation: independent Core Measures/Misc (12/05) Cerebrovascular Accident CVA/TIA Diagnosis: No
--- NOTE | 2017-05-02 22:51 | History & Physical ---
Yoel Ferraro MD 05/02/17 6022: General Information and HPI MD Statement: I have seen and personally examined EMILY FRANCO JR and documented this H&P. The patient is a 76 year old M who presented with a patient stated chief complaint of [dyspnea on exertion and when supine]. Source of Information: patient, old records Exam Limitations: no limitations History of Present Illness: Patient is a 76 [id number] with a PMH significant for Lung cancer s/p 3 rounds of radiation completed 2 months ago, COPD, CAD s/p CABG and PCI with stend placement, ischemic cardiomyopathy, CKD, hypothyroidism, aortic stenosis, peripheral arterial disease, PATTI on CPAP, who presents complaining of a two-week history of worsening dyspnea on exertion and orthopnea. Patient states that approximately 6 weeks ago he underwent replacement of his ICD and since that time he has had shortness of breath while lying flat, and worsening shortness of breath with exertion. He states that he can no longer walk more than approximately 20-30 feet without feeling out of breath, and he is only able to sleep for 23 hours at a time. He endorses waking up from sleep gasping for air. He has a cough which is mostly nonproductive but occasionally brings up clear sputum, this cough is worse while lying down. He has chronic lower extremity swelling however this is unchanged from baseline. He also endorses wheezing but this also is at his baseline. He states that he has had associated intermittent palpitations describing it as a feeling of his heart racing which terminated spontaneously. He has no associated chest pain or chest discomfort not associated diaphoresis, nausea, vomiting. He endorses intermittent chills but no subjective fever. Allergies/Medications Allergies: Coded Allergies: NO KNOWN ALLERGIES (06/23/14) Home Med list Acetaminophen 325 MG CAPSULE 1 CAP PO Q6 PRN PAIN (Reported) Albuterol Sulfate (Proair Hfa) 90 MCG HFA.AER.AD 2 PUF INH Q4 COPD Aspirin (Aspirin*) 81 MG TAB.CHEW 1 TAB PO DAILY heart (Reported) Atorvastatin Calcium (Lipitor) 40 MG TABLET 1 TAB PO DAILY cholesterol ( Reported) Budesonide/Formoterol Fumarate (Symbicort 160-4.5 Mcg Inhaler) 160 MCG-4.5 MCG/ ACTUATION HFA.AER.AD 2 PUF INH BID COPD (Reported) Candesartan Cilexetil 4 MG TABLET 1 TAB PO DAILY CARDIOMYOPATHY Carvedilol (Coreg) 3.125 MG TABLET 6.25 MG PO BID HEART Clopidogrel Bisulfate (Clopidogrel) 75 MG TABLET 1 TAB PO DAILY BLOOD THINNER (Reported) Furosemide (Lasix) 20 MG TABLET 1 TAB PO DAILY DIURETIC (Reported) Gabapentin (Neurontin) 800 MG TABLET 1 TAB PO TID BACK PAIN (Reported) Isosorbide Mononitrate (Isosorbide Mononitrate ER) 60 MG TAB.ER.24H 1 TAB PO DAILY (Reported) Levothyroxine Sodium 100 MCG TABLET 1 TAB PO DAILY THYROID (Reported) Nitroglycerin (Nitrostat) 0.4 MG TAB.SUBL 1 TAB SL AD PRN CHEST PAIN ( Reported) 1st sign of attack; may repeat every 5 minutes until relief; if pain persists after 3 tablets in 15 minutes, prompt medical att Prednisone 10 MG TABLET 1 TAB PO SEE ADMIN CRITERIA COPD EXACERBATION 60 MG( 6 TABS) ON 10/09 - 10/10 50 MG (5 TABS) ON 10/11- 10/13 40 MG( 4 TABS) 0N 10/14 - 10/16 30 MG( 3 TABS) ON 10/17 - 10/19 20 MG( 2 TABS) ON 10/20 - 10/22 10 MG ( 1 TAB) ON 10/23 - 10/25 Ranolazine (Ranexa) 500 MG TAB.ER.12H 1 TAB PO BID heart (Reported) Tamsulosin HCl (Flomax) 0.4 MG CAP.ER.24H 1 CAP PO QHS prostate Please take at bed time to avoid low blood pressure during the day. 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 Home Who Do You Live With? spouse Services at Home: None Primary Language: Swiss Smoking Status: Former Smoker (60 pack years) ETOH Use: denies use Illicit Drug Use: denies illicit drug use Living Will? no Functional Ability ADLs Independent: dressing, eating, toileting, bathing. Ambulation: independent Review of Systems Review of Systems Constitutional: Reports: chills. Denies: diaphoresis, fever. EENTM: Denies: blurred vision, double vision, visual changes. Cardiovascular: Reports: orthopena, palpitations. Denies: chest pain, syncope. Respiratory: Reports: cough, orthopnea, short of breath, wheezing (chronic). GI: Reports: no symptoms. Genitourinary: Reports: no symptoms. Musculoskeletal: Reports: no symptoms. Skin: Reports: no symptoms. Neurological/Psychological: Reports: no symptoms. Exam & Diagnostic Data Last 24 Hrs of Vital Signs/I&O Vital Signs Date Time Temp Pulse Resp B/P B/P Pulse O2 O2 Flow FiO2 Mean Ox Delivery Rate 05/03 0002 97.7 79 22 127/65 94 Nasal 2.0L Cannula 05/02 2100 98.4 74 20 131/70 100 Room Air 05/02 2002 97 Nasal 2.0L Cannula 05/02 194 99.0 88 18 121/63 94 Nasal 2.0L Cannula 05/02 1941 99.0 88 18 115/63 89 Room Air 05/02 1737 98.3 68 20 109/63 91 Room Air Intake & Output 05/03 0800 05/03 0000 05/02 1600 Intake Total 0 Output Total 600 Balance -600 Intake, Oral 0 Output, Urine 600 Patient 250 lb Weight Weight Estimated Measurement Method Physical Exam General Appearance Alert, Oriented X3, Cooperative, No Acute Distress Skin Temp/Moisture Exam: Warm/Dry Sepsis Skin Exam (color): Normal for Ethnicity HEENT Atraumatic, PERRLA, EOMI, Mucous Membr. moist/pink Neck Supple, No JVD, +2 Carotid Pulse wo Bruit Cardiovascular Regular Rate, Normal S1, Normal S2, surgical scar in the L upper chest with palpable ICD Lungs scant wheezing, no cackles Abdomen Normal Bowel Sounds, Soft, obese, mild TTP in periumbilical area Neurological Normal Gait, Normal Speech, Strength at 5/5 X4 Ext, Normal Tone, Sensation Intact, Cranial Nerves 3-12 NL Extremities No Clubbing, No Cyanosis, 2+ pitting edema of the distal LE's bilaterally, pt states this is his baseline Last 24 Hrs of Labs/Abimael: Laboratory Tests 05/02/17 2314: Troponin I 0.02 05/02/17 1652: Anion Gap 10, Estimated GFR 42 L, BUN/Creatinine Ratio 17.5, Glucose 141 H, Calcium 9.1, Total Bilirubin 0.4, AST 15 L, ALT 32, Alkaline Phosphatase 112, Troponin I 0.02, Eyq-N-Tiurahhxalg Pept 3450 H, Total Protein 5.8 L, Albumin 3.5, Globulin 2.3, Albumin/Globulin Ratio 1.5, CBC w Diff NO MAN DIFF REQ, RBC 3.04 L, MCV 101.7 H, MCH 34.4 H, MCHC 33.8, RDW 15.4 H, MPV 7.9, Gran % 81.4 H, Lymphocytes % 8.5 L, Monocytes % 7.5, Eosinophils % 2.3, Basophils % 0.3, Absolute Granulocytes 6.7 H, Absolute Lymphocytes 0.7 L, Absolute Monocytes 0.6, Absolute Eosinophils 0.2, Absolute Basophils 0 Microbiology 05/02 1954 NASOPHARYN: Influenza Virus A & B Rapid Smear - COMP Diagnostic Data EKG Results NSR, HR 78, QTc 497, no significant ST-T segment changes CXR Results Stable cardiomegaly. No acute airspace disease. Assessment/Plan Assessment: Patient is a 76 [id number] with a PMH significant for Lung cancer s/p 3 rounds of radiation completed 2 months ago, COPD, CAD s/p CABG and PCI with stend placement, ischemic cardiomyopathy, CKD, hypothyroidism, aortic stenosis, peripheral arterial disease, PATTI on CPAP, who presents complaining of a two-week history of worsening dyspnea on exertion and orthopnea. He endorses PND. He also is wheezing which is appreciated on exam. Having a mostly nonproductive cough worsened by lying in a supine position. He has no sick contacts and recently had his ICD replaced 2 weeks ago around the onset of the symptoms. Shortness of breath is likely due to a COPD exacerbation however a CHF exacerbation may also be playing a factor. ProBNP is elevated at 3450 however this is not significantly elevated from the patient's baseline. He does not have crackles on exam and although he has lower extremity edema is not significantly worsened from his baseline. Patient has EF of 20% and global hypokinesia seen on echocardiogram in September 2016. Patient reported minimal relief of symptoms after receiving IV Solu-Medrol, IV Lasix, and a breathing treatment in the ED. Problem list #Worsening dyspnea on exertion and orthopnea likely COPD exacerbation or CHF exacerbation must be ruled out #Chronic medical problems including CAD, ischemic cardiomyopathy, CKD ALS, PATTI on CPAP Plan -Admit to telemetry -Continuous telemetry monitoring -TRC/nebs -Prednisone taper and IV azithromycin -ACS has been ruled out with negative troponins and EKG -Echocardiogram -Pulmonary consult in the a.m. with Robert Boss MD -Cardiology consult in the a.m. with Dr. Seay -Continue all medications including aspirin, statin, Lasix, gabapentin, isosorbide mononitrate, carvedilol, Ranexa, tamsulosin, levothyroxine -Heart healthy diet -DVT prophylaxis: Subcutaneous heparin and ALPS -CODE STATUS: Full code As Ranked By This Provider Problem List: 1. COPD exacerbation Core Measures/Misc (12/05) Acute Coronary Syndrome ACS Diagnosis: No Congestive Heart Failure Congestive Heart Failure Diagnosis No Cerebrovascular Accident CVA/TIA Diagnosis: No VTE (View Protocol) VTE Risk Factors VTE (Previous) No Mechanical VTE Prophylaxis d/t N/A MechProphylax Ordered No VTE Pharm Prophylaxis d/t NA PharmProphylax ordered Sepsis (View protocol) Sepsis Present: No Lj LUND, [facility] 05/02/17 2312: Attending MD Review Statement Attending Statement Attending MD Statement: examined this patient, discuss w/resident/PA/PLEATING MACHINE OPERATOR, agreed w/resident/PA/PLEATING MACHINE OPERATOR, reviewed images, amended to note Attending Assessment/Plan: 76 yo M with h/o recently diagnosed NSCLC s/p radiation, COPD, PATTI on CPAP, HTN, CAD s/p CABG, CKD, PVD, s/p AA repair, ischemic CMP, chronic systolic CHF (EF 35 -40%), s/p AICD + PPM, underwent defibrillator replacement (was 12 yrs old) at [facility] (Dr. Doll) 2 weeks ago and since then has noticed progressive dyspnea on exertion, orthopnea and wheezing. PND+. C/o dry cough and intermittent palpitations. Denies chest pain or lightheadedness. He has chronic lower extremity edema which has not changed. He quit smoking 1 month ago. No sick contacts. Vitals stable, except for sats 88-89% RA --> 94% on 2L. Exam: AAO, in mild respiratory distress, Neck supple, no JVD, Chest b/l reduced air entry with diffuse wheezes, left basilar crackles+, ACID noted, Heart S1S2 regular, systolic murmur+, LE: 2+ pitting pedal edema. Labs: no leukocytosis, macrocytic anemia, BUN 28, creat 1.6 (baseline), glucose 141, trop neg, proBNP 3450. Rapid flu negative. CXR: stable cardiomegaly, hyperinflated lungs, no airspace disease. Echo (2017): EF 20%, moderate aortic stenosis. EKG: sinus rhythm, PVC's, FL 200, Qtc 499. Assessment and plan: 1. Acute hypoxic respiratory failure multifactorial 2. COPD exacerbation 3. Acute exacerbation of chronic systolic heart failure 4. Moderate aortic stenosis 5. Recent defibrillator replacement with intermittent palpitations 6. H/o CAD, non small cell lung and sleep apnea 7. CKD stage 3 stable - Admit to Telemetry - Monitor for arrhythmias - Serial EKG and troponin - Replete electrolytes to keep K > 4.0 amd Mag > 2.0 - IV lasix 20 mg once, followed by PO 20 mg from AM - Check TSH, free T4 - Obtain Echo - Cardio consult - Consider pacemaker/defibrillator interrogation - TRC nebs scheduled and as needed - IV solumedrol - IV azithromycin - Pulm consult Dr. Boss - Nocturnal CPAP - Consider CT chest in AM if his symptoms do not improve - Continue aspirin, statin, plavix, imdur, synthroid, nitro, ranolazine and coreg. DVT ppx Hep SC. Full code. Alma LUND,Mon[place] 05/03/17 0428: Resident Review Statement Resident Statement: examined this patient, discussed with software developer intern Other Findings: H: Ms Almonte is a 76 [id number] with a PMH significant for Lung cancer, COPD, CAD s/p CABG and PCI with stend placement, ischemic cardiomyopathy, CKD, hypothyroidism, aortic stenosis, peripheral arterial disease, PATTI on CPAP who presented to the emergency department complaining of dyspnea and insomnia due to worsening shortness of breath. Patient states that since thereplacement of his defibrillator approximately 2 weeks ago he has been unable to lay flat. This is subsequently has affected his sleep. States that he is only able to sleep for 2 hours and then is up again. Patient must remain upright for the rest of the night for symptomatic relief. States that his symptoms are getting worse and initially felt that this could be managed independently however since his symptoms have worsened, he decided to come to the emergency department for additional workup. The pateints defibrillator was changed on 04/21/2017. Patient denies being exposed to any sick contacts or any changes to his medications. The patient is also s/p 3 rounds of radiation completed 2 months ago. This was done under the care of Dr Jun Lynch. R: Patient endorses some chills although denied any fevers. Patient also endorsed persistent wheezing although denied any shortness of breath. Denies any LOC. Denied any dysuria or urinary changes. E Temperature 98.3. Respirations 20. Blood pressure 109/62. Heart rate 91. General Appearance Alert, Oriented X3, Cooperative, No Acute Distress Skin Temp/Moisture Exam: Warm/Dry HEENT Atraumatic, PERRLA, EOMI, Mucous Membr. moist/pink Neck Supple, No JVD, Cardiovascular Regular Rate, Normal S1, Normal S2, ICD Noted. Lungs Ausculatory wheezing noted. Abdomen Normal Bowel Sounds, Soft, obese, mild TTP in periumbilical area Neurological Normal Gait, Normal Speech, Strength at 5/5 X4 Ext, Normal Tone, Sensation Intact, Cranial Nerves 3-12 NL Extremities No Clubbing, No Cyanosis, Pitting Edema, 2+ L: WBC 8.2. H&H 10.4 and 30.9. Platelets 152. Sodium 139. Potassium 4.4. BUN 28. Creatinine 1.6. I As above. A/P Ms Almonte is a 76 [id number] with a PMH significant for Lung cancer, COPD, CAD s/p CABG and PCI with stend placement, ischemic cardiomyopathy, CKD, hypothyroidism, aortic stenosis, peripheral arterial disease, PATTI on CPAP who presented to the emergency department complaining of dyspnea and insomnia due to worsening shortness of breath. Shortness of breath is likely attributed to worsening COPD exacerbation. Acute hypoxic respiratory failure. COPD Exacerbation CHF exacerbation. History of coronary artery disease. Admit patient to telemetry. Rule out ACS with serial EKGs and troponins. Continue gentle diuresis with Lasix. Check thyroid studies. Obtain echocardiogram. Obtain cardiac urology consultation in a.m. Have pacemaker interrogated. Continue IV Solu-Medrol. IV azithromycin for anti-inflammatory properties. Obtain pulmonary consultation in a.m. Continue home medications. DVT PPX; Heparin Patient is a full code.
--- NOTE | 2017-05-02 23:16 | Admission Certification ---
Admission Certification Certification Statement - As attending physician, I certify that at the time of - admission, based on clinical presentation, severity of - symptoms, need for further diagnostic testing and - therapeutic interventions, and risk of adverse outcomes - without in-hospital treatment, in my clinical assessment, - this patient requires an acute hospital stay for a minimum - of two nights or longer. I have also considered psychsocial - factors such as support system, advanced age, financial - issues, cognitive issues, and failed out-patient treatments, - past re-admission history, safety of patient, and lack of - compliance as applicable. Specific rationale supporting this admission is: Acute hypoxic respiratory failure, COPD exacerbation, mild CHF exacerbation, recent defibrillator change.
--- NOTE | 2017-05-03 08:51 | Cons- Pulmonary ---
General Information and HPI Consulting Request Date of Consult: 05/03/17 Requested By: Lux Reason for Consult: Shortness of breath History of Present Illness: Patient is a history coronary artery disease lung cancer status post radiation COPD recently had AICD replaced and is felt shortness of breath with cough productive of light yellow sputum and increasing lower extremity edema. He is found now requiring oxygen which she had not previously required. He said no chest pain. He said no hemoptysis. Allergies/Medications Allergies: Coded Allergies: NO KNOWN ALLERGIES (06/23/14) Home Med List: Acetaminophen 325 MG CAPSULE 1 CAP PO Q6 PRN PAIN (Reported) Albuterol Sulfate (Proair Hfa) 90 MCG HFA.AER.AD 2 PUF INH Q4 COPD Aspirin (Aspirin*) 81 MG TAB.CHEW 1 TAB PO DAILY heart (Reported) Atorvastatin Calcium (Lipitor) 40 MG TABLET 1 TAB PO DAILY cholesterol ( Reported) Budesonide/Formoterol Fumarate (Symbicort 160-4.5 Mcg Inhaler) 160 MCG-4.5 MCG/ ACTUATION HFA.AER.AD 2 PUF INH BID COPD (Reported) Candesartan Cilexetil 4 MG TABLET 1 TAB PO DAILY CARDIOMYOPATHY Carvedilol (Coreg) 3.125 MG TABLET 6.25 MG PO BID HEART Clopidogrel Bisulfate (Clopidogrel) 75 MG TABLET 1 TAB PO DAILY BLOOD THINNER (Reported) Furosemide (Lasix) 20 MG TABLET 1 TAB PO DAILY DIURETIC (Reported) Gabapentin (Neurontin) 800 MG TABLET 1 TAB PO TID BACK PAIN (Reported) Isosorbide Mononitrate (Isosorbide Mononitrate ER) 60 MG TAB.ER.24H 1 TAB PO DAILY (Reported) Levothyroxine Sodium 100 MCG TABLET 1 TAB PO DAILY THYROID (Reported) Nitroglycerin (Nitrostat) 0.4 MG TAB.SUBL 1 TAB SL AD PRN CHEST PAIN ( Reported) 1st sign of attack; may repeat every 5 minutes until relief; if pain persists after 3 tablets in 15 minutes, prompt medical att Prednisone 10 MG TABLET 1 TAB PO SEE ADMIN CRITERIA COPD EXACERBATION 60 MG( 6 TABS) ON 10/09 - 10/10 50 MG (5 TABS) ON 10/11- 10/13 40 MG( 4 TABS) 0N 10/14 - 10/16 30 MG( 3 TABS) ON 10/17 - 10/19 20 MG( 2 TABS) ON 10/20 - 10/22 10 MG ( 1 TAB) ON 10/23 - 10/25 Ranolazine (Ranexa) 500 MG TAB.ER.12H 1 TAB PO BID heart (Reported) Tamsulosin HCl (Flomax) 0.4 MG CAP.ER.24H 1 CAP PO QHS prostate Please take at bed time to avoid low blood pressure during the day. Tiotropium [place] (Spiriva) 18 MCG CAP.W.DEV 1 CAP INH DAILY COPD (Reported) Review of Systems Review of Systems Constitutional: Reports: chills. Denies: fever. Cardiovascular: Reports: peripheral edema. Denies: chest pain. Respiratory: Reports: cough, short of breath, sputum production. Denies: hemoptysis. GI: Denies: abdominal pain, diarrhea, melena. 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 Home Who Do You Live With? spouse Services at Home: None Primary Language: French Smoking Status: Former Smoker (60 pack years) ETOH Use: denies use Illicit Drug Use: denies illicit drug use Living Will? no Functional Ability ADLs Independent: dressing, eating, toileting, bathing. Ambulation: independent Exam & Diagnostic Data Last 24 Hrs of Vital Signs/I&O Vital Signs Date Time Temp Pulse Resp B/P B/P Pulse O2 O2 Flow FiO2 Mean Ox Delivery Rate 05/03 08 98.0 80 20 124/62 95 Nasal 2.0L Cannula 05/03 0635 98.5 82 20 139/74 96 Nasal 2.0L Cannula 05/03 0538 98.0 80 20 117/72 95 Nasal 2.0L Cannula 05/03 0507 96.9 67 20 129/74 96 Room Air 05/03 030 98.6 72 16 107/58 95 Nasal 2.0L Cannula 05/03 0307 98.6 72 16 107/58 05/03 137 98.7 79 20 102/56 02/13 0138 98.7 79 20 102/56 05/03 0002 97.7 79 22 127/65 94 Nasal 2.0L Cannula 05/02 2100 98.4 74 20 131/70 100 Room Air 05/02 2001 97 Nasal 2.0L Cannula 05/02 194 99.0 88 18 121/63 94 Nasal 2.0L Cannula 05/02 1940 99.0 88 18 115/63 89 Room Air 05/02 1737 98.3 68 20 109/63 91 Room Air Intake & Output 05/03 1600 05/03 0800 05/03 0000 Intake Total 0 Output Total 600 600 Balance -600 -600 Intake, Oral 0 Output, Urine 600 600 Patient 250 lb Weight Weight Estimated Measurement Method Oxygen saturation 2 L 95% exam of his chest showed scattered diffuse faint expiratory wheezing cardiac exam shows a regular S1 and S2 with soft systolic ejection murmur abdomen is soft nontender he has 2+ symmetrical pitting edema Last 48 Hrs of Labs/Abimael: Laboratory Tests 05/02/17 2314: Magnesium Pending, Troponin I 0.02, TSH Pending, Free T4 Pending 05/02/17 1652: Anion Gap 10, Estimated GFR 42 L, BUN/Creatinine Ratio 17.5, Glucose 141 H, Calcium 9.1, Total Bilirubin 0.4, AST 15 L, ALT 32, Alkaline Phosphatase 112, Troponin I 0.02, Fut-I-Yacmkypedqa Pept 3450 H, Total Protein 5.8 L, Albumin 3.5, Globulin 2.3, Albumin/Globulin Ratio 1.5, CBC w Diff NO MAN DIFF REQ, RBC 3.04 L, MCV 101.7 H, MCH 34.4 H, MCHC 33.8, RDW 15.4 H, MPV 7.9, Gran % 81.4 H, Lymphocytes % 8.5 L, Monocytes % 7.5, Eosinophils % 2.3, Basophils % 0.3, Absolute Granulocytes 6.7 H, Absolute Lymphocytes 0.7 L, Absolute Monocytes 0.6, Absolute Eosinophils 0.2, Absolute Basophils 0 Microbiology 05/02 1954 NASOPHARYN: Influenza Virus A & B Rapid Smear - COMP Assessment/Plan Impression/Plan: 76-year-old gentleman with COPD cardiomyopathy AICD sleep apnea status post radiation for lung cancer is admitted with increasing shortness of breath. This is likely multifactorial related to acute bronchitis and possible degree of volume overload with increased edema and elevated BNP Recommendations: IV steroids as ordered. Sputum culture. Taper FiO2 with improved saturations. Mild negative fluid balance monitoring renal function closely. Consult Acknowledgment - Thank you for your consult request.
--- NOTE | 2017-05-03 09:36 | Cons- Cardiology ---
General Information and HPI Consulting Request Date of Consult: 05/03/17 Requested By: Lj LUND,Ximena Reason for Consult: Shortness of breath Source of Information: patient Exam Limitations: no limitations History of Present Illness: The patient is 76-year-old male with a history of ischemic cardiomyopathy EF 20% status post AICD, or coronary bypass surgery with PCI, known occluded vein graft , carotid artery disease, peripheral arterial disease, chronic systolic heart failure, aortic aneurysm, chronic renal insufficiency, who now presents with increasing shortness of breath and cough. Patient states that he had a generator change apparently 6 weeks ago and since then he's been noticing increasing shortness of breath. He does have a cough only productive of scant sputum first thing in the morning. He denies chest discomfort. He has noted mild edema of his extremities but this is chronic. He states that now he is noted dyspnea upon minimal exertion along with PND and orthopnea. He has been compliant with his medications. Allergies/Medications Allergies: Coded Allergies: NO KNOWN ALLERGIES (06/23/14) Home Med List: Acetaminophen 325 MG CAPSULE 1 CAP PO Q6 PRN PAIN (Reported) Albuterol Sulfate (Proair Hfa) 90 MCG HFA.AER.AD 2 PUF INH Q4 COPD Aspirin (Aspirin*) 81 MG TAB.CHEW 1 TAB PO DAILY heart (Reported) Atorvastatin Calcium (Lipitor) 40 MG TABLET 1 TAB PO DAILY cholesterol ( Reported) Budesonide/Formoterol Fumarate (Symbicort 160-4.5 Mcg Inhaler) 160 MCG-4.5 MCG/ ACTUATION HFA.AER.AD 2 PUF INH BID COPD (Reported) Candesartan Cilexetil 4 MG TABLET 1 TAB PO DAILY CARDIOMYOPATHY Carvedilol (Coreg) 3.125 MG TABLET 6.25 MG PO BID HEART Clopidogrel Bisulfate (Clopidogrel) 75 MG TABLET 1 TAB PO DAILY BLOOD THINNER (Reported) Furosemide (Lasix) 20 MG TABLET 1 TAB PO DAILY DIURETIC (Reported) Gabapentin (Neurontin) 800 MG TABLET 1 TAB PO TID BACK PAIN (Reported) Isosorbide Mononitrate (Isosorbide Mononitrate ER) 60 MG TAB.ER.24H 1 TAB PO DAILY (Reported) Levothyroxine Sodium 100 MCG TABLET 1 TAB PO DAILY THYROID (Reported) Nitroglycerin (Nitrostat) 0.4 MG TAB.SUBL 1 TAB SL AD PRN CHEST PAIN ( Reported) 1st sign of attack; may repeat every 5 minutes until relief; if pain persists after 3 tablets in 15 minutes, prompt medical att Prednisone 10 MG TABLET 1 TAB PO SEE ADMIN CRITERIA COPD EXACERBATION 60 MG( 6 TABS) ON 10/09 - 10/10 50 MG (5 TABS) ON 10/11- 10/13 40 MG( 4 TABS) 0N 10/14 - 10/16 30 MG( 3 TABS) ON 10/17 - 10/19 20 MG( 2 TABS) ON 10/20 - 10/22 10 MG ( 1 TAB) ON 10/23 - 10/25 Ranolazine (Ranexa) 500 MG TAB.ER.12H 1 TAB PO BID heart (Reported) Tamsulosin HCl (Flomax) 0.4 MG CAP.ER.24H 1 CAP PO QHS prostate Please take at bed time to avoid low blood pressure during the day. Tiotropium [place] (Spiriva) 18 MCG CAP.W.DEV 1 CAP INH DAILY COPD (Reported) Current Medications: Current Medications Sig/Penny Start time Last Medication Dose Route Stop Time Status Admin Acetaminophen 325 MG Q6P PRN 05/03 0015 AC PO Albuterol Sulfate 3 ML ONCE ONE 05/02 1945 DC 05/02 INH 05/02 194 1944 Aspirin 81 MG DAILY 05/03 1000 AC PO Atorvastatin Calcium 40 MG 1700 05/03 1700 AC PO Azithromycin 500 MG DAILY 05/03 1000 AC Dextrose/Water 250 ML IV Azithromycin 500 MG ONCE ONE 05/02 2100 DC 05/02 Dextrose/Water 250 ML IV 05/02 2159 2141 Budesonide/ 2 PUF BID 05/03 1000 AC Formoterol Fumarate INH Carvedilol 6.25 MG BID 05/03 0007 AC 05/03 PO 0138 Clopidogrel Bisulfate 75 MG DAILY 05/03 1000 AC PO Furosemide 20 MG DAILY 05/03 1000 CAN PO Furosemide 20 MG DAILY 05/03 1000 UNVr IV Furosemide 0 .STK-MED ONE 05/02 2341 DC IV Furosemide 20 MG ONCE ONE 05/02 2245 DC 05/03 IV 05/02 2246 0001 Heparin Sodium 0 .STK-MED ONE 05/03 0635 DC (Porcine) .ROUTE Heparin Sodium 0 .STK-MED ONE 05/02 2341 DC (Porcine) .ROUTE Heparin Sodium 5,000 UNIT Q8 02/12 2255 AC 05/03 (Porcine) SC 0633 Ipratropium [place] 2.5 ML ONCE ONE 05/02 194 DC 05/02 INH 05/02 194 194 Isosorbide 60 MG DAILY 05/03 1000 AC Mononitrate PO Levothyroxine Sodium 0.1 MG DAILY AC 05/03 0700 AC 05/03 PO 0633 Losartan Potassium 0 .STK-MED ONE 05/03 0024 DC PO Methylprednisolone 40 MG Q12 05/03 1000 AC IV Methylprednisolone 0 .STK-MED ONE 05/02 2007 DC .ROUTE Methylprednisolone 125 MG ONCE ONE 05/02 1944 CAN IV 05/02 1945 Methylprednisolone 125 MG ONCE ONE 05/02 1930 DC 05/02 IV 05/02 Nitroglycerin 0.4 MG SEE ADMIN CRITERIA.. 05/03 0015 AC SL Ranolazine 500 MG BID 05/03 0007 AC 05/03 PO 0138 Tamsulosin HCl 0.4 MG AT BEDTIME 05/03 0015 AC 05/03 PO 0307 Tiotropium [place] 1 PUF DAILY 05/03 1000 AC INH Review of Systems Review of Systems: Eyes no blurred or double vision Ears no deafness or ringing Nose and throat no recurrent sinusitis Lungs per history of present illness Heart per history of present illness Abdomen no nausea vomiting Musculoskeletal occasional muscle and joint pains Psych no anxiety or depression Neuro without recurrent headache or seizures Endocrine no heat or cold intolerance Past History Travel History Traveled to [place] past 21 day No Medical History Neurological: NONE EENT: NONE Cardiovascular: CARDIAC STENTS CABG CAROTID ARTERY BYPASS DEFIBRILLATOR Respiratory: COPD Gastrointestinal: NONE Hepatic: NONE Renal: NONE Musculoskeletal: NONE Psychiatric: NONE Endocrine: hypothyroidism Blood Disorders: DVT Cancer(s): NONE 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 Home Who Do You Live With? spouse Services at Home: None Primary Language: Urdu Smoking Status: Former Smoker (60 pack years) ETOH Use: denies use Illicit Drug Use: denies illicit drug use Living Will? no Functional Ability ADLs Independent: dressing, eating, toileting, bathing. Ambulation: independent ECHO Results (as available) Report: Left ventricular cavity size normal. Left ventricular wall thickness mildly increased. Moderate to severe hypokinesis of the mid to basal inferior wall. Mild distal anteroseptal/anteroapical hypokinesis. Left ventricular ejection fraction is estimated at 45 %. Catheter/pacemaker wire in the right ventricular cavity. Normal right ventricular size and function. Mild left atrial dilatation. Moderate mitral regurgitation. Hhcj-[id number]-wcdddojc aortic stenosis (CAITLYN 1.4 cm2 by continuity with a mean gradient of 13 mmHg). Moderate tricuspid regurgitation. RVSP > 45 mmHg. Exam & Diagnostic Data Vital Signs and I&O Vital Signs Date Time Temp Pulse Resp B/P B/P Pulse O2 O2 Flow FiO2 Mean Ox Delivery Rate 05/03 0820 98.0 80 20 124/62 95 Nasal 2.0L Cannula 05/03 0635 98.5 82 20 139/74 96 Nasal 2.0L Cannula 05/03 0538 98.0 80 20 117/72 95 Nasal 2.0L Cannula 05/03 0507 96.9 67 20 129/74 96 Room Air 05/03 0309 98.6 72 16 107/58 95 Nasal 2.0L Cannula 05/03 0307 98.6 72 16 107/58 05/03 0138 98.7 79 20 102/56 05/03 0138 98.7 79 20 102/56 05/03 0002 97.7 79 22 127/65 94 Nasal 2.0L Cannula 05/02 2100 98.4 74 20 131/70 100 Room Air 05/02 2001 97 Nasal 2.0L Cannula 05/02 194 99.0 88 18 121/63 94 Nasal 2.0L Cannula 05/02 194 99.0 88 18 115/63 89 Room Air 05/02 1737 98.3 68 20 109/63 91 Room Air Intake & Output 05/03 1600 05/03 0800 05/03 0000 05/02 1600 05/02 0800 05/02 0000 Intake Total 0 Output Total 600 600 Balance -600 -600 Intake, Oral 0 Output, Urine 600 600 Patient 250 lb Weight Weight Estimated Measurement Method Physical Exam: Patient is a well-developed well-nourished male appearing in moderate respiratory distress HEENT is unremarkable Neck is supple there is no JVD Lungs diffuse rhonchi and wheezes bilaterally Heart regular rhythm S1 and S2 are normal no gallops or rubs 1/6 systolic ejection murmur at the left sternal border Abdomen bowel sounds positive Extremities 1+ edema Labs/Abimael Results: Laboratory Tests 05/02 05/02 2314 1652 Chemistry Sodium (137 - 145 mmol/L) 139 Potassium (3.5 - 5.1 mmol/L) 4.4 Chloride (98 - 107 mmol/L) 102 Carbon Dioxide (22 - 30 mmol/L) 27 Anion Gap (5 - 16) 10 BUN (9 - 20 mg/dL) 28 H Creatinine (0.7 - 1.2 mg/dL) 1.6 H Estimated GFR (>60 ml/min) 42 L BUN/Creatinine Ratio (7 - 25 %) 17.5 Glucose (65 - 99 mg/dL) 141 H Calcium (8.4 - 10.2 mg/dL) 9.1 Magnesium (1.6 - 2.3 mg/dL) Pending Total Bilirubin (0.2 - 1.3 mg/dL) 0.4 AST (17 - 59 U/L) 15 L ALT (21 - 72 U/L) 32 Alkaline Phosphatase (< 127 U/L) 112 Troponin I (<0.11 ng/ml) 0.02 0.02 [id number]-Glsbeugofgz Pept (<125 pg/mL) 3450 H Total Protein (6.3 - 8.2 g/dL) 5.8 L Albumin (3.5 - 5.0 g/dL) 3.5 Globulin (1.9 - 4.2 gm/dL) 2.3 Albumin/Globulin Ratio (1.1 - 2.2 %) 1.5 TSH (0.270 - 4.200 uIU/mL) Pending Free T4 (0.78 - 2.44 ng/dL) Pending Hematology CBC w Diff NO MAN DIFF REQ WBC (4.8 - 10.8 /CUMM) 8.2 RBC (4.70 - 6.10 /CUMM) 3.04 L Hgb (14.0 - 18.0 G/DL) 10.4 L Hct (42 - 52 %) 30.9 L MCV (80.0 - 94.0 FL) 101.7 H MCH (27.0 - 31.0 PG) 34.4 H MCHC (33.0 - 37.0 G/DL) 33.8 RDW (11.5 - 14.5 %) 15.4 H Plt Count (130 - 400 /CUMM) 152 MPV (7.4 - 10.4 FL) 7.9 Gran % (42.2 - 75.2 %) 81.4 H Lymphocytes % (20.5 - 51.1 %) 8.5 L Monocytes % (1.7 - 9.3 %) 7.5 Eosinophils % (0 - 5 %) 2.3 Basophils % (0.0 - 2.0 %) 0.3 Absolute Granulocytes (1.4 - 6.5 /CUMM) 6.7 H Absolute Lymphocytes (1.2 - 3.4 /CUMM) 0.7 L Absolute Monocytes (0.10 - 0.60 /CUMM) 0.6 Absolute Eosinophils (0.0 - 0.7 /CUMM) 0.2 Absolute Basophils (0.0 - 0.2 /CUMM) 0 Diagnostic Data EKG Results Sinus rhythm and complete left bundle branch block CXR Results IMPRESSION: Stable cardiomegaly. No acute airspace disease. Assessment/Plan Assessment/Plan 1. Shortness of breath most likely a combination of acute exacerbation of COPD along with acute on chronic systolic heart failure with elevated BNP and edema. 2. Ischemic cardiomyopathy ejection fraction 20% status post AICD 3. Coronary artery disease status post coronary bypass surgery known occluded vein grafts 4. Hypertension 5. Chronic COPD 6. Carcinoma of the lung status post radiation therapy 7. Chronic renal insufficiency Recommendations 1. I will have his AICD interrogated to assess function 2. Would change Lasix to IV 20 mg daily if he received his Lasix this morning I would give him another 20 mg IV 3. Since his renal function appears to be at baseline I would resume his ARB 4. Monitor on telemetry 5. Aggressive pulmonary management per Dr. Damico 6. Continue aspirin, statin, Imdur, Plavix and beta nya 7. Would repeat an echocardiogram to reassess LV function Thank you for allowing [facility] to participate in the care of your patient. Consult Acknowledgment - Thank you for your consult request.
--- NOTE | 2017-05-03 09:47 | PN- Housestaff ---
Maynor LUND,[facility] 05/03/17 0947: Subjective Follow-up For: CHF Exacerbation COPD Exacerbation Subjective: Patient continues to have cough and SOB, denies any sore throat, PND, CP, palpitations or fever . Review of Systems Constitutional: Reports: no symptoms. EENTM: Reports: no symptoms. Cardiovascular: Reports: peripheral edema. Respiratory: Reports: cough, short of breath, sputum production. Gastrointestinal: Reports: no symptoms. Genitourinary: Reports: no symptoms. Musculoskeletal: Reports: no symptoms. Skin: Reports: no symptoms. Neurological/Psychological: Reports: no symptoms. Hematologic/Endocrine: Reports: no symptoms. Immunologic/Allergic: Reports: no symptoms. Objective Last 24 Hrs of Vital Signs/I&O Vital Signs Date Time Temp Pulse Resp B/P B/P Pulse O2 O2 Flow FiO2 Mean Ox Delivery Rate 05/03 1435 97 Nasal 2.0L Cannula 05/03 0930 80 124/62 05/03 0930 80 124/62 05/03 0930 80 124/62 05/03 0820 98.0 80 20 124/62 95 Nasal 2.0L Cannula 05/03 0635 98.5 82 20 139/74 96 Nasal 2.0L Cannula 05/03 0538 98.0 80 20 117/72 95 Nasal 2.0L Cannula 05/03 0507 96.9 67 20 129/74 96 Room Air 05/03 0309 98.6 72 16 107/58 95 Nasal 2.0L Cannula 05/03 0307 98.6 72 16 107/58 05/03 0138 98.7 79 20 102/56 05/03 0138 98.7 79 20 102/56 05/03 0002 97.7 79 22 127/65 94 Nasal 2.0L Cannula 05/02 2100 98.4 74 20 131/70 100 Room Air 05/02 2002 97 Nasal 2.0L Cannula 05/02 194 99.0 88 18 121/63 94 Nasal 2.0L Cannula 05/02 194 99.0 88 18 115/63 89 Room Air 05/02 1737 98.3 68 20 109/63 91 Room Air Intake & Output 05/03 1600 05/03 0800 05/03 0000 Intake Total 0 Output Total 600 600 Balance -600 -600 Intake, Oral 0 Output, Urine 600 600 Patient 250 lb 250 lb Weight Weight Estimated Measurement Method Physical Exam General Appearance: Oriented X3 Skin: No Rashes, No Breakdown HEENT: Atraumatic, EOMI, Mucous Membr. moist/pink Neck: Supple, No JVD, No thryomegaly Cardiovascular: Regular Rate, Normal S1, Normal S2, ICD palpable on left side of chest Lungs: Wheezing bilaterally Abdomen: Normal Bowel Sounds, Soft, No Tenderness Extremities: +2 pitting edema bilaterally Current Medications: Current Medications Sig/Penny Start time Last Medication Dose Route Stop Time Status Admin Acetaminophen 325 MG Q6P PRN 05/03 0015 AC PO Albuterol Sulfate 3 ML ONCE ONE 05/02 1944 DC 05/02 INH 05/02 194 194 Aspirin 81 MG DAILY 05/03 1000 AC 05/03 PO 0930 Atorvastatin Calcium 40 MG 1700 05/03 1700 AC PO Azithromycin 500 MG DAILY 05/03 1000 AC 05/03 Dextrose/Water 250 ML IV 1004 Azithromycin 500 MG ONCE ONE 05/02 2100 DC 05/02 Dextrose/Water 250 ML IV 05/02 2159 2141 Budesonide/ 2 PUF BID 05/03 1000 AC 05/03 Formoterol Fumarate INH 1004 Carvedilol 6.25 MG BID 05/03 0007 AC 05/03 PO 0930 Clopidogrel Bisulfate 75 MG DAILY 05/03 1000 AC 05/03 PO 0930 Furosemide 20 MG DAILY 05/04 1000 DC PO Furosemide 20 MG DAILY 05/03 1500 AC IV Furosemide 20 MG DAILY 05/03 1115 DC 05/03 PO 1116 Furosemide 20 MG DAILY 05/03 1000 CAN PO Furosemide 20 MG DAILY 05/03 1000 DC IV Furosemide 0 .STK-MED ONE 05/02 2341 DC IV Furosemide 20 MG ONCE ONE 05/02 2245 DC 05/03 IV 05/02 2246 0001 Heparin Sodium 0 .STK-MED ONE 05/03 0635 DC (Porcine) .ROUTE Heparin Sodium 0 .STK-MED ONE 05/02 2341 DC (Porcine) .ROUTE Heparin Sodium 5,000 UNIT Q8 05/025 AC 05/03 (Porcine) SC 0633 Ipratropium [place] 2.5 ML ONCE ONE 05/02 1944 DC 05/02 INH 05/02 1945 194 Isosorbide 60 MG DAILY 05/03 1000 AC 05/03 Mononitrate PO 0930 Levothyroxine Sodium 0.1 MG DAILY AC 05/03 0700 AC 05/03 PO 0633 Losartan Potassium 25 MG DAILY 05/03 1457 AC PO Losartan Potassium 0 .STK-MED ONE 05/03 0024 DC PO Methylprednisolone 40 MG Q12 05/03 1000 AC 05/03 IV 1004 Methylprednisolone 0 .STK-MED ONE 05/02 2007 DC .ROUTE Methylprednisolone 125 MG ONCE ONE 05/02 1944 CAN IV 05/02 1945 Methylprednisolone 125 MG ONCE ONE 05/02 193 DC 05/02 IV 05/02 Nitroglycerin 0.4 MG SEE ADMIN CRITERIA.. 05/03 001 AC SL Ranolazine 500 MG BID 05/03 0007 AC 05/03 PO 0930 Tamsulosin HCl 0.4 MG AT BEDTIME 05/03 0015 AC 05/03 PO 0307 Tiotropium [place] 1 PUF DAILY 05/03 1000 AC 05/03 INH 1004 Last 24 Hrs of Lab/Abimael Results Last 24 Hrs of Labs/Mics: Laboratory Tests 05/03/17 1105: Anion Gap 10, Estimated GFR 50 L, BUN/Creatinine Ratio 19.3 05/02/17 2314: Magnesium 1.7, Troponin I 0.02, TSH 3.190, Free T4 1.14 05/02/17 1652: Anion Gap 10, Estimated GFR 42 L, BUN/Creatinine Ratio 17.5, Glucose 141 H, Calcium 9.1, Total Bilirubin 0.4, AST 15 L, ALT 32, Alkaline Phosphatase 112, Troponin I 0.02, Grg-K-Qywqlcyfbzz Pept 3450 H, Total Protein 5.8 L, Albumin 3.5, Globulin 2.3, Albumin/Globulin Ratio 1.5, CBC w Diff NO MAN DIFF REQ, RBC 3.04 L, MCV 101.7 H, MCH 34.4 H, MCHC 33.8, RDW 15.4 H, MPV 7.9, Gran % 81.4 H, Lymphocytes % 8.5 L, Monocytes % 7.5, Eosinophils % 2.3, Basophils % 0.3, Absolute Granulocytes 6.7 H, Absolute Lymphocytes 0.7 L, Absolute Monocytes 0.6, Absolute Eosinophils 0.2, Absolute Basophils 0 Microbiology 05/03 1459 LOWER RESP: Respiratory Culture - ORD 05/03 1458 LOWER RESP: Gram Stain - ORD 05/02 1954 NASOPHARYN: Influenza Virus A & B Rapid Smear - COMP Assessment/Plan Assessment: Ms Almonte is a 76 [id number] with a PMH significant for Lung cancer, COPD, CAD s/p CABG and PCI with stend placement, ischemic cardiomyopathy, CKD, hypothyroidism, aortic stenosis, peripheral arterial disease, PATTI on CPAP who presented to the emergency department complaining of dyspnea and insomnia due to worsening shortness of breath. Shortness of breath is likely attributed to worsening COPD exacerbation. #Acute hypoxic respiratory failure. #COPD Exacerbation #CHF exacerbation. #History of coronary artery disease. Admit patient to telemetry. Ruled out ACS with serial EKGs and troponins. Continue gentle diuresis with Lasix. Echocardiogram pending. Awaiting cardiology recommendations. Continue IV Solu-Medrol. Change IV azithromycin to PO. Await Pulmonology recommendations. Continue home medications. DVT PPX; Heparin Patient is a full code. Problem List: 1. COPD exacerbation 2. CHF exacerbation Pain Ratin Pain Location: None Pain Goal: Remain pain free Pain Plan: Pain Pathway Tomorrow's Labs & Rationales: BEP(Hyponatremia) Dawood LUND,Jessica 05/03/17 1606: Attending MD Review Statement Attending Statement Attending MD Statement: examined this patient, discuss w/resident/PA/ACCOUNT DEVELOPMENT MANAGER, agreed w/resident/PA/ACCOUNT DEVELOPMENT MANAGER, reviewed EMR data (avail), discussed with nursing, reviewed images Attending Assessment/Plan: 76-year-old male with history of COPD, history of lung sign cancer in the past, hypertension CAD, AICD/pacemaker. He is here with acute systolic heart failure and a COPD exacerbation. At this point we are diuresing him with IV Lasix per cardiology while continuing IV steroids per pulmonary. We have him on by mouth azithromycin for a COPD exacerbation. No evidence of pneumonia and we are treating with azithromycin for a bacterial bronchitis. He has underlying CKD and we need to keep a close watch on his BUN and creatinine in view of the diuretics. The arb is on hold given the ABRAN and will follow closely.
[2017-05-03 16:01] VITALS: BP 115/60
[2017-05-03 22:36] VITALS: BP 120/70
[2017-05-04 06:43] VITALS: BP 120/76
--- NOTE | 2017-05-04 07:12 | PN- Housestaff ---
Maynor LUND,[facility] 05/04/17 0712: Subjective Follow-up For: COPD Exacerbation CHF Exacerbation Tele-Events Since Last Visit: Sinus rhythm with first-degree AV block Heart rate between 85-89 Patient had a 16 beat run of V. tach last night. Subjective: Patient continues to have shortness of breath, worse when lying down and cough with yellow colored sputum production. Reports no improvement in his symptoms since his admission to the hospital. Denies any aspirin, palpitations, fever/ chills or sore throat. Review of Systems Constitutional: Reports: no symptoms. EENTM: Reports: no symptoms. Cardiovascular: Reports: orthopena. Respiratory: Reports: cough, short of breath, sputum production. Gastrointestinal: Reports: no symptoms. Genitourinary: Reports: no symptoms. Musculoskeletal: Reports: no symptoms. Skin: Reports: no symptoms. Neurological/Psychological: Reports: no symptoms. Hematologic/Endocrine: Reports: no symptoms. Immunologic/Allergic: Reports: no symptoms. Objective Last 24 Hrs of Vital Signs/I&O Vital Signs Date Time Temp Pulse Resp B/P B/P Pulse O2 O2 Flow FiO2 Mean Ox Delivery Rate 05/04 1425 98.1 90 20 118/68 95 Nasal 3.0L Cannula 05/04 0909 124/70 05/04 0909 124/70 05/04 0908 124/70 05/04 0908 124/74 05/04 0837 95 Nasal 3.0L Cannula 05/04 0830 89 Room Air 05/04 0643 97.6 89 12 120/76 95 Nasal 4.0L Cannula 05/04 0000 Nasal 3.0L Cannula 05/03 2236 97.8 84 20 120/70 93 05/03 203 77 104/60 05/03 2038 77 104/60 05/03 203 77 104/60 05/03 1856 Nasal 2.0L Cannula 05/03 1748 120/62 05/03 1715 94 Nasal 2.0L Cannula 05/03 1601 97.7 78 20 115/60 96 Room Air Intake & Output 05/04 1600 05/04 0800 05/04 0000 Intake Total 400 110 110 Output Total 950 725 400 Balance -550 -615 -290 Intake, IV 10 10 Intake, Oral 400 100 100 Output, Urine 950 725 400 Patient 245 lb 244 lb Weight Weight Bed scale Measurement Method Physical Exam General Appearance: Alert, Oriented X3, Cooperative Skin: No Rashes, No Breakdown Cardiovascular: Regular Rate, Normal S1, Normal S2, No Murmurs Lungs: trace bibasilar crackles Abdomen: Normal Bowel Sounds, Soft, No Tenderness Extremities: No Clubbing, No Cyanosis, +1 pitting edema bilaterally Current Medications: Current Medications Sig/Penny Start time Last Medication Dose Route Stop Time Status Admin Acetaminophen 325 MG Q6P PRN 05/03 0015 AC PO Albuterol Sulfate 3 ML TID 05/03 2200 AC 05/04 INH 1439 Aspirin 81 MG DAILY 05/03 1000 AC 05/04 PO 0909 Atorvastatin Calcium 40 MG 1700 05/03 1700 AC 05/03 PO 1748 Azithromycin 500 MG DAILY 05/04 1000 AC 05/04 PO 0909 Azithromycin 500 MG DAILY 05/03 1000 DC 05/03 Dextrose/Water 250 ML IV 1004 Budesonide/ 2 PUF BID 05/03 1000 AC 05/04 Formoterol Fumarate INH 0910 Carvedilol 12.5 MG BID 05/04 2200 AC PO Carvedilol 6.25 MG BID 05/03 0007 DC 05/04 PO 0908 Clopidogrel Bisulfate 75 MG DAILY 05/03 1000 AC 05/04 PO 0909 Furosemide 20 MG BID 05/04 2200 AC IV Furosemide 20 MG DAILY 05/03 1500 DC 05/04 IV 0911 Heparin Sodium 5,000 UNIT Q8 05/02 2255 AC 05/04 (Porcine) SC 0552 Isosorbide 60 MG DAILY 05/03 1000 AC 05/04 Mononitrate PO 0909 Levothyroxine Sodium 0.1 MG DAILY AC 05/03 0700 AC 05/04 PO 0552 Losartan Potassium 25 MG DAILY 05/03 1457 AC 05/04 PO 0908 Methylprednisolone 40 MG Q12 05/03 1000 DC 05/04 IV 0908 Nitroglycerin 0.4 MG SEE ADMIN CRITERIA.. 05/03 0015 AC SL Prednisone 40 MG DAILY 05/05 1000 AC PO Ranolazine 500 MG BID 05/03 0007 AC 05/04 PO 0909 Tamsulosin HCl 0.4 MG AT BEDTIME 05/03 0015 AC 05/03 PO 2038 Tiotropium [place] 1 PUF DAILY 05/03 1000 AC 05/04 INH 0909 Last 24 Hrs of Lab/Abimael Results Last 24 Hrs of Labs/Mics: Laboratory Tests 05/04/17 0619: Anion Gap 10, Estimated GFR 40 L, BUN/Creatinine Ratio 21.2 Assessment/Plan Assessment: Ms Almonte is a 76 [id number] with a PMH significant for Lung cancer, COPD, CAD s/p CABG and PCI with stend placement, ischemic cardiomyopathy, CKD, hypothyroidism, aortic stenosis, peripheral arterial disease, PATTI on CPAP who presented to the emergency department complaining of dyspnea and insomnia due to worsening shortness of breath. Shortness of breath is likely attributed to worsening COPD exacerbation. #Acute hypoxic respiratory failure. #COPD Exacerbation #CHF exacerbation. #History of coronary artery disease. CHF exacerbation; - We'll increase his IV Lasix from 20 mg daily to twice a day. - Will continue losartan 25 mg daily. - Will monitor electrolytes and renal function while on Lasix and losartan. - Will increase his carvedilol from 6.25-12.5 mg twice daily since patient had a 16 beat run of nonsustained V. tach last night. - Okay with systolic blood pressure between 90-100 since patient had an EF of 20 -30% on his last echocardiogram. - Repeat echocardiogram pending. COPD exacerbation; - Will change IV Solu-Medrol to prednisone per pulmonology recommendations. - Continue by mouth azithromycin. - Follow-up sputum culture. Chronic medical conditions; Continue home medications. DVT PPX; Heparin Patient is a full code. Problem List: 1. CHF exacerbation 2. COPD exacerbation Pain Ratin Pain Location: None Pain Goal: Remain pain free Pain Plan: Pain pathway Tomorrow's Labs & Rationales: BEP(on Lasix) Dawood LUND,Jessica 05/04/17 1359: Attending MD Review Statement Attending Statement Attending MD Statement: examined this patient, discuss w/resident/PA/HEDGE FUND PRINCIPAL, agreed w/resident/PA/HEDGE FUND PRINCIPAL, reviewed EMR data (avail), discussed with nursing, discussed with case mgmt, reviewed images Attending Assessment/Plan: Appreciate cardiology follow-up. Acute systolic heart failure with runs of nonsustained VT. Plan to increase the diuresis while watching the renal function closely. Also increase the beta nya and keep the Arb. Patient's normal systolic blood pressure is 90-100 and as long as he is asymptomatic we need to maximize medical therapy.
--- NOTE | 2017-05-04 07:51 | PN- Pulmonary ---
Subjective HPI/Critical Care Issues: Patient continues to feel short of breath oxygen requirements persist he is diuresed 2 L Objective Current Medications: Current Medications Sig/Penny Start time Last Medication Dose Route Stop Time Status Admin Acetaminophen 325 MG Q6P PRN 05/03 0015 AC PO Albuterol Sulfate 3 ML TID 05/03 2200 AC INH Aspirin 81 MG DAILY 05/03 1000 AC 05/03 PO 0930 Atorvastatin Calcium 40 MG 1700 05/03 1700 AC 05/03 PO 1748 Azithromycin 500 MG DAILY 05/04 1000 AC PO Azithromycin 500 MG DAILY 05/03 1000 DC 05/03 Dextrose/Water 250 ML IV 1004 Budesonide/ 2 PUF BID 05/03 1000 AC 05/03 Formoterol Fumarate INH 2135 Carvedilol 6.25 MG BID 05/03 0007 AC 05/03 PO 2038 Clopidogrel Bisulfate 75 MG DAILY 05/03 1000 AC 05/03 PO 0930 Furosemide 20 MG DAILY 05/04 1000 DC PO Furosemide 20 MG DAILY 05/03 1500 AC 05/03 IV 1748 Furosemide 20 MG DAILY 05/03 1115 DC 05/03 PO 1116 Furosemide 20 MG DAILY 05/03 1000 CAN PO Furosemide 20 MG DAILY 05/03 1000 DC IV Heparin Sodium 5,000 UNIT Q8 05/02 2255 AC 05/04 (Porcine) SC 0552 Isosorbide 60 MG DAILY 05/03 1000 AC 05/03 Mononitrate PO 0930 Levothyroxine Sodium 0.1 MG DAILY AC 05/03 0700 AC 05/04 PO 0552 Losartan Potassium 25 MG DAILY 05/03 1457 AC 05/03 PO 1748 Methylprednisolone 40 MG Q12 05/03 1000 AC 05/03 IV 2035 Nitroglycerin 0.4 MG SEE ADMIN CRITERIA.. 05/03 0015 AC SL Ranolazine 500 MG BID 05/03 0007 AC 05/03 PO 2038 Tamsulosin HCl 0.4 MG AT BEDTIME 05/03 0015 AC 05/03 PO 2038 Tiotropium [place] 1 PUF DAILY 05/03 1000 AC 05/03 INH 1004 Vital Signs & I&O Last 24 Hrs of Vitals and I&O: Vital Signs Date Time Temp Pulse Resp B/P B/P Pulse O2 O2 Flow FiO2 Mean Ox Delivery Rate 05/04 0643 97.6 89 12 120/76 95 Nasal 4.0L Cannula 05/04 0000 Nasal 3.0L Cannula 05/03 2236 97.8 84 20 120/70 93 05/03 2037 77 104/60 05/03 2038 77 104/60 05/03 2038 77 104/60 05/03 1856 Nasal 2.0L Cannula 05/03 1748 120/62 05/03 1715 94 Nasal 2.0L Cannula 05/03 1601 97.7 78 20 115/60 96 Room Air 05/03 1435 97 Nasal 2.0L Cannula 05/03 0930 80 124/62 05/03 0930 80 124/62 05/03 0930 80 124/62 05/03 0820 98.0 80 20 124/62 95 Nasal 2.0L Cannula Intake & Output 05/04 0800 05/04 0000 05/03 1600 Intake Total 110 110 Output Total 725 400 Balance -615 -290 Intake, IV 10 10 Intake, Oral 100 100 Output, Urine 725 400 Patient 244 lb 250 lb Weight Oxygen saturation 4 L 95% exam of his chest shows diminished breath sounds rare crackles there are no wheezes Cardiac exam shows regular S1 and S2 without murmurs there is persistent edema Impression/Plan Impression/Plan Impression/Plan: 76-year-old gentleman with COPD cardiomyopathy AICD sleep apnea status post radiation for lung cancer is admitted with increasing shortness of breath. This is likely multifactorial related to acute bronchitis and possible degree of volume overload with increased edema and elevated BNP. Patient continues to diurese with stable renal function Recommendations: DC IV steroids begin by mouth prednisone Sputum culture. Taper FiO2 Mild negative fluid balance monitoring renal function closely.
--- NOTE | 2017-05-04 12:24 | PN- Cardiology ---
Subjective Subjective: Still feels congested. Lower extremity edema is improving. Denies chest pain or palpitations. Objective Vital Signs and I&Os Vital Signs Date Time Temp Pulse Resp B/P B/P Pulse O2 O2 Flow FiO2 Mean Ox Delivery Rate 05/04 0909 124/70 05/04 0909 124/70 05/04 0908 124/70 05/04 0908 124/74 05/04 0837 95 Nasal 3.0L Cannula 05/04 0830 89 Room Air 05/04 0643 97.6 89 12 120/76 95 Nasal 4.0L Cannula 05/04 0000 Nasal 3.0L Cannula 05/03 2236 97.8 84 20 120/70 93 05/03 2038 77 104/60 05/03 2038 77 104/60 05/03 2038 77 104/60 05/03 1856 Nasal 2.0L Cannula 05/03 1748 120/62 05/03 1715 94 Nasal 2.0L Cannula 05/03 1601 97.7 78 20 115/60 96 Room Air 05/03 1435 97 Nasal 2.0L Cannula Intake & Output 05/04 1600 05/04 0800 05/04 0000 05/03 1600 05/03 0800 05/03 0000 Intake Total 110 110 0 Output Total 725 400 600 600 Balance -615 -290 -600 -600 Intake, IV 10 10 Intake, Oral 100 100 0 Output, Urine 725 400 600 600 Patient 245 lb 244 lb 250 lb 250 lb Weight Weight Bed scale Estimated Measurement Method Physical Exam: General: no apparent distress. Alert. Eyes: No obvious scleral icterus. HEENT: No jugular venous distention or abnormal jugular venous pulsations. Cardiovascular: Normal intensity S1/S2. ICD noted Respiratory: Trace basilar crackles Abdomen: Soft, nontender with no guarding or rebound tenderness. Musculoskeletal: No clubbing or cyanosis noted; 1+ lower extremity edema Skin: No obvious rashes or ulcerations. Neurologic: No gross focal deficits noted. Lymph: No gross lymphadenopathy. Current Medications: Current Medications Sig/Penny Start time Last Medication Dose Route Stop Time Status Admin Acetaminophen 325 MG Q6P PRN 05/03 0015 AC PO Albuterol Sulfate 3 ML TID 05/03 2200 AC 05/04 INH 0836 Aspirin 81 MG DAILY 05/03 1000 AC 05/04 PO 0909 Atorvastatin Calcium 40 MG 1700 02/13 1700 AC 05/03 PO 1748 Azithromycin 500 MG DAILY 05/04 1000 AC 05/04 PO 0909 Azithromycin 500 MG DAILY 05/03 1000 DC 05/03 Dextrose/Water 250 ML IV 1004 Budesonide/ 2 PUF BID 05/03 1000 AC 05/04 Formoterol Fumarate INH 0910 Carvedilol 6.25 MG BID 05/03 0007 AC 05/04 PO 0908 Clopidogrel Bisulfate 75 MG DAILY 05/03 1000 AC 05/04 PO 0909 Furosemide 20 MG BID 05/04 2200 AC IV Furosemide 20 MG DAILY 05/03 1500 DC 05/04 IV 0911 Furosemide 20 MG DAILY 05/03 1115 DC 05/03 PO 1116 Heparin Sodium 5,000 UNIT Q8 05/02 2255 AC 05/04 (Porcine) SC 0552 Isosorbide 60 MG DAILY 05/03 1000 AC 05/04 Mononitrate PO 0909 Levothyroxine Sodium 0.1 MG DAILY AC 05/03 0700 AC 05/04 PO 0552 Losartan Potassium 25 MG DAILY 05/03 1457 AC 05/04 PO 0908 Methylprednisolone 40 MG Q12 05/03 1000 AC 05/04 IV 0908 Nitroglycerin 0.4 MG SEE ADMIN CRITERIA.. 05/03 0015 AC SL Ranolazine 500 MG BID 05/03 0007 AC 05/04 PO 0909 Tamsulosin HCl 0.4 MG AT BEDTIME 05/03 0015 AC 05/03 PO 2038 Tiotropium [place] 1 PUF DAILY 05/03 1000 AC 05/04 INH 0909 Results Last 48 Hrs of Labs/Mics: Laboratory Tests 05/04/17 0619: Anion Gap 10, Estimated GFR 40 L, BUN/Creatinine Ratio 21.2 05/03/17 1105: Anion Gap 10, Estimated GFR 50 L, BUN/Creatinine Ratio 19.3, Phosphorus 3.8, Magnesium 1.8, Vitamin B12 243, Folate 12.7 05/02/17 2314: Magnesium 1.7, Troponin I 0.02, TSH 3.190, Free T4 1.14 05/02/17 1652: Anion Gap 10, Estimated GFR 42 L, BUN/Creatinine Ratio 17.5, Glucose 141 H, Calcium 9.1, Total Bilirubin 0.4, AST 15 L, ALT 32, Alkaline Phosphatase 112, Troponin I 0.02, Tdx-K-Slgiidsktks Pept 3450 H, Total Protein 5.8 L, Albumin 3.5, Globulin 2.3, Albumin/Globulin Ratio 1.5, CBC w Diff NO MAN DIFF REQ, RBC 3.04 L, MCV 101.7 H, MCH 34.4 H, MCHC 33.8, RDW 15.4 H, MPV 7.9, Gran % 81.4 H, Lymphocytes % 8.5 L, Monocytes % 7.5, Eosinophils % 2.3, Basophils % 0.3, Absolute Granulocytes 6.7 H, Absolute Lymphocytes 0.7 L, Absolute Monocytes 0.6, Absolute Eosinophils 0.2, Absolute Basophils 0 Microbiology 05/02 1954 NASOPHARYN: Influenza Virus A & B Rapid Smear - COMP Recent Imaging Studies: Telemetry tracings were personally reviewed and shows sinus rhythm with a run of nonsustained ventricular tachycardia ICD interrogation personally reviewed and shows normal device function Assessment/Plan Assessment/Plan 1. Shortness of breath most likely a combination of acute exacerbation of COPD along with acute on chronic systolic heart failure with elevated BNP and edema. 2. Ischemic cardiomyopathy ejection fraction 20% status post AICD 3. Coronary artery disease status post coronary bypass surgery known occluded vein grafts 4. Hypertension 5. Chronic COPD with nicotine dependence in remission 6. Carcinoma of the lung status post radiation therapy 7. Chronic renal insufficiency 8. Hx of aortic stenosis 9. Hx of Carotid artery disease/aortic aneurysm and peripheral vascular disease Patient is improving with diuresis but given that he still has volume overload we have increased his Lasix to 20 mg IV twice a day. Continue on daily ARB therapy while monitoring the potassium levels and kidney function. Would increase the carvedilol to 12.5 mg by mouth twice a day given the NSVT. Repeat echocardiogram is pending. ICD interrogation showed normal device function. Brady Arce MD [facility] Continue telemetry? Yes
[2017-05-04 14:25] VITALS: BP 118/68
--- NOTE | 2017-05-04 15:31 | ECHOCARDIOGRAM REPORT ---
EMILY FRANCO Age: 76 : 1940 Gender: M Exam Date: 05/04/2017 10:35 Exam Location: [address] Ht (in): 72 Wt (lb): 244 BSA: 2.40 BP: 124 / 62 Ordering Physician: Monica Marquez MD Referring Physician: Monica Marquez MD Technologist: Evelio Amaya [facility] Room Number: 177-1 Indications: Hypertension Rhythm: Technical Quality: Fair FINDINGS Left Ventricle Moderate left ventricular dilatation. Left ventricular wall thickness mildly increased. There is moderate global hypokinesis with akinesis of the inferior wall. Left ventricular ejection fraction is estimated at 20-25 %. Right Ventricle Normal right ventricular size and function. Catheter/pacemaker wire in the right ventricular cavity. Right Atrium Normal right atrial size. Left Atrium Mild left atrial dilatation. Mitral Valve No mitral stenosis. Mild mitral annular calcification. Mild mitral regurgitation. Aortic Valve Diffuse thickening of the aortic valve cusps with reduced excursion. [id number] aortic stenosis (mean gradient 15 mmHg). Tricuspid Valve Structurally normal tricuspid valve. Mild tricuspid regurgitation. Unable to estimate the right ventricular systolic pressure. Pulmonic Valve Pulmonic valve not well visualized. Pericardium No pericardial effusion. Great Vessels Normal size aortic root. CONCLUSIONS Moderate left ventricular dilatation. Left ventricular wall thickness mildly increased. There is moderate global hypokinesis with akinesis of the inferior wall. Left ventricular ejection fraction is estimated at 20-25 %. Normal right ventricular size and function. Catheter/pacemaker wire in the right ventricular cavity. Mild left atrial dilatation. [id number] aortic stenosis (mean gradient 15 mmHg). Unable to estimate the right ventricular systolic pressure. Nathan Arce M.D. (Electronically Signed) Final Date: 04 May 2017 15:30 MEASUREMENTS (Male / Female) Normal Values 2D ECHO LV Diastolic Diameter PLAX 6.7 cm 4.2 - 5.9 / 3.9 - 5.3 cm LV Systolic Diameter PLAX 6.1 cm 2.1 - 4.0 cm LV Fractional Shortening PLAX 9.0 % 25 - 46 % LV Ejection Fraction 2D Teich 19.2 % IVS Diastolic Thickness 1.3 cm LVPW Diastolic Thickness 1.1 cm LV Relative Wall Thickness 0.4 RV Internal Dim ED PLAX 3.6 cm 1.9 - 3.8 cm LVOT Diameter 2.1 cm Aortic Root Diameter 2.8 cm LA Volume 87.0 cm 18 - 58 / 22 - 52 cm Ascending Aorta Diameter 3.4 cm DOPPLER AV Peak Velocity 249.0 cm/s AV Peak Gradient 24.8 mmHg AV Mean Velocity 177.0 cm/s AV Mean Gradient 15.0 mmHg AV Velocity Time Integral 57.9 cm LVOT Peak Velocity 52.6 cm/s LVOT Peak Gradient 1.1 mmHg LVOT Mean Velocity 32.8 cm/s LVOT Mean Gradient 1.0 mmHg LVOT Velocity Time Integral 11.2 cm LVOT Stroke Volume 38.8 cm AV Area Cont Eq vti 0.7 cm AV Area Cont Eq pk 0.7 cm MV Peak Velocity 83.7 cm/s MV Peak Gradient 2.8 mmHg MV Mean Velocity 58.0 cm/s MV Mean Gradient 2.0 mmHg Mitral E Point Velocity 95.3 cm/s Mitral A Point Velocity 94.3 cm/s Mitral E to A Ratio 1.0 MV PHT Velocity 90.1 cm/s MV Deceleration Keith 260.0 cm/s MV Pressure Half Time 104.0 ms MV Area PHT 2.1 cm MV Deceleration Time 201.0 ms TR Peak Velocity 250.0 cm/s TR Peak Gradient 25.0 mmHg Right Atrial Pressure 5.0 mmHg Pulmonary Artery Systolic Pressu 30.0 mmHg Right Ventricular Systolic Press 30.0 mmHg PV Peak Velocity 127.0 cm/s PV Peak Gradient 6.5 mmHg PV Mean Velocity 86.8 cm/s PV Mean Gradient 3.0 mmHg PV Velocity Time Integral 23.8 cm
[2017-05-04 22:21] VITALS: BP 114/70
[2017-05-05 07:12] VITALS: BP 94/62
--- NOTE | 2017-05-05 07:17 | PN- Housestaff ---
Maynor LUND,[facility] 05/05/17 0716: Subjective Follow-up For: COPD Exacerbation CHF Exacerbation Tele-Events Since Last Visit: NSR Heart rate 64-77 Subjective: Patient was getting a breathing treatment when I went to see him this morning. Reports improvement in his cough and shortness of breath. Denies any chest pain , palpitations, lightheadedness/dizziness, fever/chills or overnight events. Review of Systems Constitutional: Reports: no symptoms. EENTM: Reports: no symptoms. Cardiovascular: Reports: orthopena. Respiratory: Reports: cough, short of breath, sputum production. Gastrointestinal: Reports: no symptoms. Genitourinary: Reports: no symptoms. Musculoskeletal: Reports: no symptoms. Skin: Reports: no symptoms. Neurological/Psychological: Reports: no symptoms. Hematologic/Endocrine: Reports: no symptoms. Immunologic/Allergic: Reports: no symptoms. Objective Last 24 Hrs of Vital Signs/I&O Vital Signs Date Time Temp Pulse Resp B/P B/P Pulse O2 O2 Flow FiO2 Mean Ox Delivery Rate 05/05 0818 80 05/05 0818 80 /05/05 0817 80 94/05/05 0817 80 94/05/05 0800 Nasal 3.0L Cannula 05/05 0754 96 Nasal 3.0L Cannula 05/05 0712 98.2 80 18 94/62 95 Nasal Cannula 05/05 0414 78 98 05/05 0000 Nasal 3.0L Cannula 05/04 2223 80 96 05/04 2221 98.4 87 18 114/70 91 05/04 2134 88 /05/04 213 88 98/05/04 2133 88 /05/04 Nasal 3.0L Cannula 05/04 1600 95 Nasal 2.0L Cannula 05/04 1425 98.1 90 20 118/68 95 Nasal 3.0L Cannula Intake & Output 05/05 1600 05/05 0800 05/05 0000 Intake Total 480 400 Output Total 750 950 Balance -270 -550 Intake, Oral 480 400 Number 0 0 Bowel Movements Output, Urine 750 950 Patient 247 lb Weight Weight Bed scale Measurement Method Physical Exam General Appearance: Alert, Oriented X3, Cooperative, No Acute Distress Skin: No Rashes, No Breakdown Cardiovascular: Regular Rate, Normal S1, Normal S2 Lungs: decreased breath sounds, mild bibasilar crackles. Abdomen: Normal Bowel Sounds, Soft, No Tenderness Extremities: No Clubbing, No Cyanosis, +1 pitting edema. Current Medications: Current Medications Sig/Penny Start time Last Medication Dose Route Stop Time Status Admin Acetaminophen 325 MG Q6P PRN 05/03 0015 AC PO Albuterol Sulfate 3 ML TID 05/03 2200 AC 05/05 INH 1332 Aspirin 81 MG DAILY 05/03 1000 AC 05/05 PO 0817 Atorvastatin Calcium 40 MG 1700 05/03 1700 AC 05/04 PO 1724 Azithromycin 500 MG DAILY 05/04 1000 AC 05/05 PO 0817 Budesonide/ 2 PUF BID 05/03 1000 AC 05/05 Formoterol Fumarate INH 0818 Calcium Carbonate 500 MG ONCE ONE 05/04 2000 DC 05/04 PO 05/04 Carvedilol 12.5 MG BID 05/04 2200 AC 05/05 PO 0818 Carvedilol 6.25 MG BID 05/03 0007 DC 05/04 PO 0908 Clopidogrel Bisulfate 75 MG DAILY 05/03 1000 AC 05/05 PO 0817 Furosemide 20 MG BID 05/04 2200 AC 05/05 IV 0823 Heparin Sodium 5,000 UNIT Q8 05/02 2255 AC 05/05 (Porcine) SC 0555 Isosorbide 60 MG DAILY 05/03 1000 AC 05/05 Mononitrate PO 0818 Levothyroxine Sodium 0.1 MG DAILY AC 05/03 0700 AC 05/05 PO 0559 Losartan Potassium 25 MG DAILY 05/03 1457 AC 05/05 PO 0817 Methylprednisolone 40 MG Q12 05/03 1000 DC 05/04 IV 0908 Nitroglycerin 0.4 MG SEE ADMIN CRITERIA.. 05/03 0015 [facility] Patient Medication 1 ED ONE ONE 05/05 1145 [facility] 05/05 1146 Prednisone 10 MG DAILY 05/08 1000 AC PO 05/09 0959 Prednisone 20 MG DAILY 05/07 1000 AC PO 05/08 0959 Prednisone 30 MG DAILY 05/06 1000 CAN PO 05/09 0959 Prednisone 30 MG DAILY 05/06 1000 AC PO 05/07 0959 Prednisone 40 MG DAILY 05/05 1000 DC 05/05 PO 0817 Ranolazine 500 MG BID 05/03 0007 AC 05/05 PO 0817 Tamsulosin HCl 0.4 MG AT BEDTIME 05/03 0015 AC 05/04 PO 2133 Tiotropium [place] 1 PUF DAILY 05/03 1000 AC 05/05 INH 0818 Last 24 Hrs of Lab/Abimael Results Last 24 Hrs of Labs/Mics: Laboratory Tests 05/05/17 0626: Anion Gap 8, Estimated GFR 40 L, BUN/Creatinine Ratio 21.8 Assessment/Plan Assessment: Ms Almonte is a 76 [id number] with a PMH significant for Lung cancer, COPD, CAD s/p CABG and PCI with stend placement, ischemic cardiomyopathy, CKD, hypothyroidism, aortic stenosis, peripheral arterial disease, PATTI on CPAP who presented to the emergency department complaining of dyspnea and insomnia due to worsening shortness of breath. Shortness of breath is likely attributed to worsening COPD exacerbation. #Acute hypoxic respiratory failure. #COPD Exacerbation #CHF exacerbation. #History of coronary artery disease. CHF exacerbation; - Continue IV Lasix from 20 mg daily twice a day. - Continue losartan 25 mg daily. - Will monitor electrolytes and renal function while on Lasix and losartan. - Continue increased dose of carvedilol 12.5 mg twice daily for episode NSVT. No further episodes of NSVT noted overnight. -Recent echocardiogram showed an ejection fraction of 20-25%, with mildly increased left ventricular and moderate global hypokinesis with akinesis of the inferior wall. COPD exacerbation; -Quick prednisone taper.. - Continue by mouth azithromycin. Chronic medical conditions; Continue home medications. DVT PPX; Heparin Patient is a full code. Problem List: 1. COPD exacerbation 2. CHF exacerbation Pain Ratin Pain Location: None Pain Goal: Remain pain free Pain Plan: None Tomorrow's Labs & Rationales: BEP(on Lasix) Dawood LUND,Jessica 05/05/17 1328: Attending MD Review Statement Attending Statement Attending MD Statement: examined this patient, discuss w/resident/PA/PLASTIC SURGERY MANAGER, agreed w/resident/PA/PLASTIC SURGERY MANAGER, reviewed EMR data (avail), discussed with nursing, discussed with case mgmt, reviewed images Attending Assessment/Plan: Patient is doing okay. He still fairly short of breath. He is a 76-year-old fairly complex male with acute systolic heart failure we are actively diuresing with IV Lasix with recently increased dose of beta nya and and reinstituted arm. He also has underlying COPD and a history of non-small cell lung CA. We are treating the COPD exacerbation and will do a rapid prednisone taper and a short course of by mouth azithromycin. Will need to watch his BUN and creatinine closely given the AK I.
--- NOTE | 2017-05-05 07:59 | PN- Pulmonary ---
Subjective HPI/Critical Care Issues: Respiratory status is improving continues to diurese Objective Current Medications: Current Medications Sig/Penny Start time Last Medication Dose Route Stop Time Status Admin Acetaminophen 325 MG Q6P PRN 05/03 0015 AC PO Albuterol Sulfate 3 ML TID 05/03 2200 AC 05/05 INH 0751 Aspirin 81 MG DAILY 05/03 1000 AC 05/04 PO 0909 Atorvastatin Calcium 40 MG 1700 05/03 1700 AC 05/04 PO 1724 Azithromycin 500 MG DAILY 05/04 1000 AC 05/04 PO 0909 Budesonide/ 2 PUF BID 05/03 1000 AC 05/04 Formoterol Fumarate INH 2134 Calcium Carbonate 500 MG ONCE ONE 05/04 1999 DC 05/04 PO 05/04 Carvedilol 12.5 MG BID 05/04 2200 AC 05/04 PO 2134 Carvedilol 6.25 MG BID 05/03 0007 DC 05/04 PO 0908 Clopidogrel Bisulfate 75 MG DAILY 05/03 1000 AC 05/04 PO 0909 Furosemide 20 MG BID 05/04 2200 AC 05/04 IV 1920 Furosemide 20 MG DAILY 05/03 1500 DC 05/04 IV 0911 Heparin Sodium 5,000 UNIT Q8 05/02 2255 AC 05/05 (Porcine) SC 0555 Isosorbide 60 MG DAILY 05/03 1000 AC 05/04 Mononitrate PO 0909 Levothyroxine Sodium 0.1 MG DAILY AC 05/03 0700 AC 05/05 PO 0559 Losartan Potassium 25 MG DAILY 05/03 1457 AC 05/04 PO 0908 Methylprednisolone 40 MG Q12 05/03 1000 DC 05/04 IV 0908 Nitroglycerin 0.4 MG SEE ADMIN CRITERIA.. 05/03 001 AC SL Prednisone 40 MG DAILY 05/05 1000 AC PO Ranolazine 500 MG BID 05/03 0007 AC 05/04 PO 2133 Tamsulosin HCl 0.4 MG AT BEDTIME 05/03 0015 AC 05/04 PO 2133 Tiotropium [place] 1 PUF DAILY 05/03 1000 AC 05/04 INH 0909 Vital Signs & I&O Last 24 Hrs of Vitals and I&O: Vital Signs Date Time Temp Pulse Resp B/P B/P Pulse O2 O2 Flow FiO2 Mean Ox Delivery Rate 05/05 0754 96 Nasal 3.0L Cannula 05/05 07 98.2 80 18 94/62 95 Nasal Cannula 05/05 0414 78 98 05/05 0000 Nasal 3.0L Cannula 05/043 80 96 05/04 2221 98.4 87 18 114/70 91 05/04 2133 88 98/62 05/04 2132 88 98/62 05/043 88 98/62 05/04 Nasal 3.0L Cannula 05/04 1600 95 Nasal 2.0L Cannula 05/04 1425 98.1 90 20 118/68 95 Nasal 3.0L Cannula 05/04 0909 124/70 05/04 0909 124/70 05/04 0908 124/70 05/04 0908 124/74 05/04 0837 95 Nasal 3.0L Cannula 05/04 0830 89 Room Air Intake & Output 05/05 0800 05/05 0000 05/04 1600 Intake Total 480 400 400 Output Total 750 950 950 Balance -270 -550 -550 Intake, Oral 480 400 400 Number 0 0 Bowel Movements Output, Urine 750 950 950 Oxygen saturation 3 L 96% exam for chest shows clear lung [place] are no wheezes cardiac exam shows regular S1 and S2 without murmurs Impression/Plan Impression/Plan Impression/Plan: 76-year-old gentleman with COPD cardiomyopathy AICD sleep apnea status post radiation for lung cancer is admitted with increasing shortness of breath. This is likely multifactorial related to acute bronchitis and possible degree of volume overload with increased edema and elevated BNP. Patient continues to diurese with stable renal function, patient's respiratory function is improving with diuresis. Recommendations: Taper FiO2 rapidly Taper prednisone by 10 mg a day
--- NOTE | 2017-05-05 11:57 | PN- Cardiology ---
Subjective Subjective: Feels about the same today. No new complaints. No further NSVT episodes on telemetry Objective Vital Signs and I&Os Vital Signs Date Time Temp Pulse Resp B/P B/P Pulse O2 O2 Flow FiO2 Mean Ox Delivery Rate 05/05 0818 80 94/62 05/05 0818 80 94/62 05/05 0817 80 94/62 05/05 0817 80 94/62 05/05 0800 Nasal 3.0L Cannula 05/05 0754 96 Nasal 3.0L Cannula 05/05 0712 98.2 80 18 94/62 95 Nasal Cannula 05/05 0414 78 98 05/05 0000 Nasal 3.0L Cannula 05/04 222 80 96 05/04 2221 98.4 87 18 114/70 91 05/04 2133 88 98/62 05/04 2132 88 98/62 05/04 2132 88 98/62 05/04 Nasal 3.0L Cannula 05/04 1600 95 Nasal 2.0L Cannula 05/04 1425 98.1 90 20 118/68 95 Nasal 3.0L Cannula Intake & Output 05/05 1600 05/05 0800 05/05 0000 05/04 1600 05/04 0800 05/04 0000 Intake Total 480 400 400 110 110 Output Total 750 950 950 725 400 Balance -270 -550 -550 -615 -290 Intake, IV 10 10 Intake, Oral 480 400 400 100 100 Number 0 0 Bowel Movements Output, Urine 750 950 950 725 400 Patient 247 lb 245 lb 244 lb Weight Weight Bed scale Bed scale Measurement Method Physical Exam: General: no apparent distress. Alert. Eyes: No obvious scleral icterus. HEENT: No jugular venous distention or abnormal jugular venous pulsations. Cardiovascular: Normal intensity S1/S2. ICD noted Respiratory: Trace basilar crackles Abdomen: Soft, nontender with no guarding or rebound tenderness. Musculoskeletal: No clubbing or cyanosis noted; 1+ lower extremity edema Skin: No obvious rashes or ulcerations. Neurologic: No gross focal deficits noted. Lymph: No gross lymphadenopathy. Current Medications: Current Medications Sig/Penny Start time Last Medication Dose Route Stop Time Status Admin Acetaminophen 325 MG Q6P PRN 05/03 0015 AC PO Albuterol Sulfate 3 ML TID 05/03 2200 AC 05/05 INH 0751 Aspirin 81 MG DAILY 05/03 1000 AC 05/05 PO 0817 Atorvastatin Calcium 40 MG 1700 05/03 1700 AC 05/04 PO 1724 Azithromycin 500 MG DAILY 05/04 1000 AC 05/05 PO 0817 Budesonide/ 2 PUF BID 05/03 1000 AC 05/05 Formoterol Fumarate INH 0818 Calcium Carbonate 500 MG ONCE ONE 05/04 2000 DC 05/04 PO 05/04 Carvedilol 12.5 MG BID 05/04 2200 AC 05/05 PO 0818 Carvedilol 6.25 MG BID 05/03 0007 DC 05/04 PO 0908 Clopidogrel Bisulfate 75 MG DAILY 05/03 1000 AC 05/05 PO 0817 Furosemide 20 MG BID 05/04 2200 AC 05/05 IV 0823 Heparin Sodium 5,000 UNIT Q8 05/02 2255 AC 05/05 (Porcine) SC 0555 Isosorbide 60 MG DAILY 05/03 1000 AC 05/05 Mononitrate PO 0818 Levothyroxine Sodium 0.1 MG DAILY AC 05/03 0700 AC 05/05 PO 0559 Losartan Potassium 25 MG DAILY 05/03 1457 AC 05/05 PO 0817 Methylprednisolone 40 MG Q12 05/03 1000 DC 05/04 IV 0908 Nitroglycerin 0.4 MG SEE ADMIN CRITERIA.. 05/03 0015 [facility] Patient Medication 1 ED ONE ONE 05/05 1145 DC Teaching ED 05/05 1146 Prednisone 30 MG DAILY 05/06 1000 UNVr PO 05/09 0959 Prednisone 40 MG DAILY 05/05 1000 DC 05/05 PO 0817 Ranolazine 500 MG BID 05/03 0007 AC 05/05 PO 0817 Tamsulosin HCl 0.4 MG AT BEDTIME 05/03 0015 AC 05/04 PO 2133 Tiotropium [place] 1 PUF DAILY 05/03 1000 AC 05/05 INH 0818 Results Last 48 Hrs of Labs/Mics: Laboratory Tests 05/05/17 0626: Anion Gap 8, Estimated GFR 40 L, BUN/Creatinine Ratio 21.8 05/04/17 0619: Anion Gap 10, Estimated GFR 40 L, BUN/Creatinine Ratio 21.2 Recent Imaging Studies: Telemetry tracings were personally reviewed and shows sinus rhythm with SVT burst Echo: Moderate left ventricular dilatation. Left ventricular wall thickness mildly increased. There is moderate global hypokinesis with akinesis of the inferior wall. Left ventricular ejection fraction is estimated at 20-25 %. Normal right ventricular size and function. Catheter/pacemaker wire in the right ventricular cavity. Mild left atrial dilatation. [id number] aortic stenosis (mean gradient 15 mmHg). Unable to estimate the right ventricular systolic pressure. Nathan Arce M.D. (Electronically Signed) Final Date: 04 May 2017 15:30 Assessment/Plan Assessment/Plan 1. Shortness of breath most likely a combination of acute exacerbation of COPD along with acute on chronic systolic heart failure with elevated BNP and edema. 2. Ischemic cardiomyopathy ejection fraction 25% status post AICD 3. Coronary artery disease status post coronary bypass surgery known occluded vein grafts 4. Hypertension 5. Chronic COPD with nicotine dependence in remission 6. Carcinoma of the lung status post radiation therapy 7. Chronic renal insufficiency 8. Hx of aortic stenosis 9. Hx of Carotid artery disease/aortic aneurysm and peripheral vascular disease We increased the carvedilol for additional afterload reduction along with treatment of his NSVT. No recurrent NSVT on telemetry. Would continue on IV Lasix today. Repeat echocardiogram shows no significant change. He is on an oral prednisone taper. Brady Arce MD [facility] Continue telemetry? Yes
[2017-05-05 14:00] VITALS: BP 90/56
[2017-05-05 22:55] VITALS: BP 118/70
[2017-05-06] MEDS ORDERED: PREDNISONE10 M2 PO ×2 (07:20→15:02)
[2017-05-06] MEDS ORDERED: COREG12.5 M1 PO (07:20)
--- NOTE | 2017-05-06 07:24 | Patient Discharge Instructions ---
Discharge Instructions General Discharge Information You were seen/treated for: COPD Exacerbation CHF Exacerbation Special Instructions: Please follow up with your station cleaning porter within a week after discharge. Please follow up with your Sheet Metal Duct Worker Supervisor within a week after discharge. Diet Continue normal diet: Yes Recommended Diet: Heart Healthy Activity Full Activity/No Limits: Yes Acute Coronary Syndrome Inclusion Criteria At DC or during hospital stay patient has or had the following: ACS DIAGNOSIS No Discharge Core Measures Meds if any: Prescribed or Continued at Discharge Meds if any: NOT Prescribed or Continued at Discharge Congestive Heart Failure Inclusion Criteria At DC or during hospital stay patient has or had the following: CHF DIAGNOSIS Yes Discharge Core Measures Meds if any: Prescribed or Continued at Discharge Meds if any: NOT Prescribed or Continued at Discharge Cerebrovascular accident Inclusion Criteria At DC or during hospital stay patient has or had the following: CVA/TIA Diagnosis No Discharge Core Measures Meds if any: Prescribed or Continued at Discharge Meds if any: NOT Prescribed or Continued at Discharge Venous thromboembolism Inclusion Criteria VTE Diagnosis No VTE Type NONE VTE Confirmed by (Test) NONE Discharge Core Measures - Per Current guidelines, there needs to be overlap - treatment for the first 5 days of Warfarin therapy. - If discharged on Warfarin prior to 5 days of - overlap therapy, the patient will need to be - assessed for post discharge needs including - *Post discharge parental anticoagulation - *Warfarin and/or parental anticoagulation education - *Follow up date to check INR post discharge At least 5 days overlap therapy as Inpatient No Meds if any: Prescribed or Continued at Discharge Note: Overlap Therapy is Warfarin and Anticoagulant Meds if any: NOT Prescribed or Continued at Discharge
--- NOTE | 2017-05-06 07:25 | PN- Housestaff ---
Maynor LUND,[facility] 05/06/17 0725: Subjective Follow-up For: COPD Exacerbation CHF exacerbation Tele-Events Since Last Visit: NSR with PVCs HR 73-83 Subjective: Patient sitting comfotably in bed, just finished eating his breakfast. Reports continued SOB and cough with sputum production, decreased in amount though. Also notices improvement in his leg edema. Review of Systems Constitutional: Reports: no symptoms. EENTM: Reports: no symptoms. Cardiovascular: Reports: peripheral edema. Respiratory: Reports: cough, short of breath, sputum production. Gastrointestinal: Reports: no symptoms. Genitourinary: Reports: no symptoms. Musculoskeletal: Reports: no symptoms. Skin: Reports: no symptoms. Neurological/Psychological: Reports: no symptoms. Hematologic/Endocrine: Reports: no symptoms. Immunologic/Allergic: Reports: no symptoms. Objective Last 24 Hrs of Vital Signs/I&O Vital Signs Date Time Temp Pulse Resp B/P B/P Pulse O2 O2 Flow FiO2 Mean Ox Delivery Rate 05/06 0844 90 118/70 05/06 0809 90 Room Air Room Air 05/05 2255 98.1 90 18 118/70 90 Nasal Cannula 05/05 2225 80 95 05/053 93 Nasal 1.0L Cannula 05/05 2035 84 112/64 05/05 2035 84 112/64 05/05 2034 84 112/64 05/05 1920 92 Nasal 1.0L Cannula 05/05 1600 93 Room Air 05/05 1400 98.3 80 20 90/56 95 Nasal Cannula Intake & Output 05/06 1600 05/06 0800 05/06 0000 Intake Total 300 300 Output Total 675 550 Balance -375 -250 Intake, Oral 300 300 Number 1 Bowel Movements Output, Urine 675 550 Physical Exam General Appearance: Alert, Oriented X3, Cooperative Skin: No Rashes, No Breakdown Cardiovascular: Regular Rate, Normal S1, Normal S2 Lungs: Wheezing bilateral lung alston. Abdomen: Normal Bowel Sounds, Soft, No Tenderness Extremities: No Clubbing, No Cyanosis, +1 pitting edema Current Medications: Current Medications Sig/Penny Start time Last Medication Dose Route Stop Time Status Admin Acetaminophen 325 MG Q6P PRN 05/03 0015 AC PO Albuterol Sulfate 3 ML TID 05/03 2200 AC 05/06 INH 0808 Aspirin 81 MG DAILY 05/03 1000 AC 05/06 PO 0844 Atorvastatin Calcium 40 MG 1700 05/03 1700 AC 05/05 PO 1723 Azithromycin 500 MG DAILY 05/04 1000 AC 05/06 PO 0845 Budesonide/ 2 PUF BID 05/03 1000 AC 05/06 Formoterol Fumarate INH 0849 Calcium Carbonate 500 MG ONCE ONE 05/05 2045 DC 05/05 PO 05/05 2046 2043 Carvedilol 12.5 MG BID 05/04 2200 AC 05/06 PO 0844 Clopidogrel Bisulfate 75 MG DAILY 05/03 1000 AC 05/06 PO 0845 Furosemide 20 MG BID 05/04 2200 AC 05/06 IV 0849 Guaifenesin 10 ML Q6-PRN PRN 05/06 1045 PO Guaifenesin 10 ML Q6P PRN 05/05 2345 DE 05/06 PO 0514 Heparin Sodium 5,000 UNIT Q8 05/02 2255 AC 05/06 (Porcine) SC 0513 Isosorbide 60 MG DAILY 05/03 1000 AC 05/06 Mononitrate PO 0844 Levothyroxine Sodium 0.1 MG DAILY AC 05/03 0700 05/06 PO 0513 Losartan Potassium 25 MG DAILY 05/03 1457 AC 05/06 PO 0844 Nitroglycerin 0.4 MG SEE ADMIN CRITERIA.. 05/03 0015 [facility] Patient Medication 1 ED ONE ONE 05/05 1430 DE Teaching ED 05/05 1431 Patient Medication 1 ED ONE ONE 05/05 1145 DE Teaching ED 05/05 1146 Prednisone 10 MG DAILY 05/08 1000 AC PO 05/09 0959 Prednisone 20 MG DAILY 05/07 1000 AC PO 05/08 0959 Prednisone 30 MG DAILY 05/06 1000 CAN PO 05/09 0959 Prednisone 30 MG DAILY 05/06 1000 AC 05/06 PO 05/07 0959 0845 Prednisone 40 MG DAILY 05/05 1000 DC 05/05 PO 0817 Ranolazine 500 MG BID 05/03 0007 AC 05/06 PO 0845 Tamsulosin HCl 0.4 MG AT BEDTIME 05/03 0015 AC 05/05 PO 2035 Tiotropium [place] 1 PUF DAILY 05/03 1000 AC 05/06 INH 0848 Last 24 Hrs of Lab/Abimael Results Last 24 Hrs of Labs/Mics: Laboratory Tests 05/06/17 0615: Anion Gap 9, Estimated GFR 40 L, BUN/Creatinine Ratio 25.3 H, Magnesium 1.9 Assessment/Plan Assessment: Ms Almonte is a 76 [id number] with a PMH significant for Lung cancer, COPD, CAD s/p CABG and PCI with stend placement, ischemic cardiomyopathy, CKD, hypothyroidism, aortic stenosis, peripheral arterial disease, PATTI on CPAP who presented to the emergency department complaining of dyspnea and insomnia due to worsening shortness of breath. Shortness of breath is likely attributed to worsening COPD exacerbation. #Acute hypoxic respiratory failure. #COPD Exacerbation #CHF exacerbation. #History of coronary artery disease. CHF exacerbation; - Continue IV Lasix from 20 mg daily twice a day. Could change to by mouth Lasix tomorrow morning. - Continue losartan 25 mg daily. - Will monitor electrolytes and renal function while on Lasix and losartan. - Continue increased dose of carvedilol 12.5 mg twice daily for episode NSVT. No further episodes of NSVT noted overnight. -Recent echocardiogram showed an ejection fraction of 20-25%, with mildly increased left ventricular and moderate global hypokinesis with akinesis of the inferior wall. COPD exacerbation; - Quick prednisone taper. - Continue by mouth azithromycin. Chronic medical conditions; Continue home medications. DVT PPX; Heparin Patient is a full code. Problem List: 1. COPD exacerbation 2. CHF exacerbation Pain Ratin Pain Location: None Pain Goal: Remain pain free Pain Plan: None Tomorrow's Labs & Rationales: None Dawood LUND,Jessica 05/06/17 1235: Attending MD Review Statement Attending Statement Attending MD Statement: examined this patient, discuss w/resident/PA/SYSTEM CONSULTANT, agreed w/resident/PA/SYSTEM CONSULTANT, reviewed EMR data (avail), discussed with nursing, discussed with case mgmt, reviewed images Attending Assessment/Plan: Patient is still very short of breath. He sitting and ambulating but feels like he is still a ways from his baseline. He is a 76-year-old male with COPD not on home oxygen or steroids, advanced systolic heart failure who we are actively treating both her systolic heart failure exacerbation and a COPD exacerbation. We have him on by mouth prednisone with a taper off 10 mg daily with by mouth azithromycin for a bacterial bronchitis. We also have him on IV Lasix with Entresto and beta nya for the severe systolic heart failure. Will follow closely and if he feels better than plan to discharge in a.m. on oral Lasix and on the current regimen with close outpatient follow-up.
[2017-05-06] MEDS ORDERED: LASIX20 M1 PO (08:20)
--- NOTE | 2017-05-06 10:41 | Discharge Summary ---
Visit Information Visit Dates Admission Date: 05/02/17 Discharge Date: 05/07/17 Hospital Course Course Attending Physician: Dawood LUND,Jessica Onfore Primary Care Physician: Clyde LUND,[facility] Course: Ms Almonte is a 76 [id number] with a PMH significant for Lung cancer, COPD, CAD s/p CABG and PCI with stend placement, ischemic cardiomyopathy, CKD, hypothyroidism, aortic stenosis, peripheral arterial disease, PATTI on CPAP who presented to the emergency department complaining of dyspnea and insomnia due to worsening shortness of breath. Shortness of breath is likely attributed to worsening COPD exacerbation. Patient was admitted to the telemetry floor and following issues were addressed; #Acute hypoxic respiratory failure. #Acute on chronic CHF #COPD Exacerbation #History of coronary artery disease. # 3 of ischemic cardiomyopathy with an ejection fraction of 25-30%. Patient was started on IV Lasix later changed to by mouth per cardiology recommendations. Electrolytes and renal function were closely monitor while being on Lasix. Echocardiogram was done showing an ejection fraction of 20-25%, with mildly increased left ventricular and moderate global hypokinesis with akinesis of the inferior wall. ICD was interogated, no issues were noted. Patient was supposed to be on candesartan according to the previous admission notes but patient has not been taking it at home. Losartan was resumed at a dose of 25 mg daily.Carvedilol was increased to 12.5 mg twice daily for episode NSVT, with no further episodes of NSVT noted afterwards. Patient was started on IV Solu-Medrol, changed to prednisone at the time of discharge. Also received azithromycin for a total of 5 days for COPD exacerbation. Rest of the home medications were continued. Allergies: Coded Allergies: NO KNOWN ALLERGIES (06/23/14) Significant Procedures: XRY-CHEST XRAY, TWO VIEWS IMPRESSION: Stable cardiomegaly. No acute airspace disease. ECHOCARDIOGRAM CONCLUSIONS Moderate left ventricular dilatation. Left ventricular wall thickness mildly increased. There is moderate global hypokinesis with akinesis of the inferior wall. Left ventricular ejection fraction is estimated at 20-25 %. Normal right ventricular size and function. Catheter/pacemaker wire in the right ventricular cavity. Mild left atrial dilatation. Oczf-bq-cruuiwst aortic stenosis (mean gradient 15 mmHg). Unable to estimate the right ventricular systolic pressure. Disposition Summary Disposition Principal Diagnosis: Acute on chronic congestive heart failure Additional Diagnosis: COPD exacerbation Discharge Disposition: home or self care Discharge Instructions General Discharge Information Code Status: Full Code Patient's Diet: Heart healthy Patient's Activity: As tolerated Follow-Up Instructions/Appts: Please follow up with your cashier manager within a week after discharge. Please follow up with your Construction Driller within a week after discharge. Medications at Discharge Discharge Medications: Stop taking the following medications: Carvedilol (Coreg) 3.125 MG TABLET ORAL TWICE DAILY Qty = 30 Prednisone (Prednisone) 10 MG TABLET ORAL SEE INSTRUCTIONS Qty = 60 Continue taking these medications: Aspirin (Aspirin*) 81 MG TAB.CHEW 1 Tablet ORAL DAILY Qty = 30 Comments: Last Taken:05/07/17 Time: 9:42A.M Atorvastatin Calcium (Lipitor) 40 MG TABLET 1 Tablet ORAL DAILY Qty = 30 Comments: Last Taken:05/06/17 Time: 5:30P.M Ranolazine (Ranexa) 500 MG TAB.ER.12H 1 Tablet ORAL TWICE DAILY Qty = 30 Comments: Last Taken:05/07/17 Time: 9:44A.M Clopidogrel Bisulfate (Clopidogrel) 75 MG TABLET 1 Tablet ORAL DAILY Qty = 90 Comments: Last Taken: 05/07/17 Time: 9:44A.M Acetaminophen (Acetaminophen) 325 MG CAPSULE 1 Capsule ORAL EVERY SIX HOURS as needed for PAIN Comments: Last Taken:NOT GIVEN THIS ADMISSION Albuterol Sulfate (Proair Hfa) 90 MCG HFA.AER.AD 2 Puff Inhale through mouth Every 4 hours Qty = 1 Comments: NOT GIVEN THIS ADMISSION Tamsulosin HCl (Flomax) 0.4 MG CAP.ER.24H 1 Capsule ORAL TAKE AT BEDTIME Qty = 30 Instructions: Please take at bed time to avoid low blood pressure during the day. Comments: Last Taken: 05/07/17 Time: 9:44A.M Tiotropium [place] (Spiriva) 18 MCG CAP.W.DEV 1 Capsule Inhale through mouth DAILY Qty = 30 Comments: Last Taken: 05/07/17 Time:9:44A.M Isosorbide Mononitrate (Isosorbide Mononitrate ER) 60 MG TAB.ER.24H 1 Tablet ORAL DAILY Qty = 90 Comments: Last Taken:05/07/17 Time:9:44A.M Budesonide/Formoterol Fumarate (Symbicort 160-4.5 Mcg Inhaler) 160 MCG-4.5 MCG/ ACTUATION HFA.AER.AD 2 Puff Inhale through mouth TWICE DAILY Qty = 10 Comments: Last Taken: 05/07/17 Time: 9:44A.M Gabapentin (Neurontin) 800 MG TABLET 1 Tablet ORAL THREE TIMES DAILY Qty = 90 Comments: NOT GIVEN THIS ADMISSION Levothyroxine Sodium (Levothyroxine Sodium) 100 MCG TABLET 1 Tablet ORAL DAILY Qty = 90 Comments: Last Taken:05/07/17 Time:5:33A.M Nitroglycerin (Nitrostat) 0.4 MG TAB.SUBL 1 Tablet SUBLINGUAL As Directed as needed for CHEST PAIN Instructions: 1st sign of attack; may repeat every 5 minutes until relief; if pain persists after 3 tablets in 15 minutes, prompt medical att Comments: NOT GIVEN THIS ADMISSION Candesartan Cilexetil (Candesartan Cilexetil) 4 MG TABLET 1 Tablet ORAL DAILY Qty = 30 Comments: NOT GIVEN THIS ADMISSION Start taking the following new medications: Carvedilol (Coreg) 12.5 MG TABLET 1 Tablet ORAL TWICE DAILY Qty = 30 No Refills Instructions: . Comments: Last Taken:05/07/17 Time:9:44A.M Prednisone (Prednisone) 10 MG TABLET 0 ORAL DAILY Qty = 3 No Refills Instructions: 20MG 05/07 10NG 05/08 STOP. Comments: Last Taken:05/07/17 Time:9:44A.M Azithromycin (Azithromycin) 500 MG TABLET 1 Milligram ORAL DAILY Qty = 1 No Refills The following medications have been changed: Old: Furosemide (Lasix) 20 MG TABLET 1 Tablet ORAL TWICE DAILY Qty = 60 New: Furosemide (Lasix) 20 MG TABLET 2 Tablet ORAL DAILY Qty = 60 Comments: Last Taken:05/07/17 Time:9:44A.M Copies To: Dawood LUND,Bruce Clemens; Margaux LUND,Robert Hearn; Clyde LUND,Sayra
[2017-05-06 12:00] VITALS: BP 94/60
[2017-05-06 14:35] VITALS: BP 116/68
--- NOTE | 2017-05-06 15:54 | PN- Cardiology ---
Subjective Subjective: Complaining of a nonproductive cough today. No chest pain or palpitations. Objective Vital Signs and I&Os Vital Signs Date Time Temp Pulse Resp B/P B/P Pulse O2 O2 Flow FiO2 Mean Ox Delivery Rate 05/06 1435 98.1 85 18 116/68 93 Nasal 1.0L Cannula 05/06 1200 97.4 74 20 94/60 90 Nasal 1.0L Cannula 05/06 0844 90 118/70 05/06 0809 90 Room Air Room Air 05/06 0800 91 Room Air Room Air 05/05 2255 98.1 90 18 118/70 90 Nasal Cannula 05/05 2225 80 95 05/05 2053 93 Nasal 1.0L Cannula 05/05 203 84 112/64 05/05 203 84 11264 05/05 2033 84 11205/05 1920 92 Nasal 1.0L Cannula 05/05 1600 93 Room Air Intake & Output 05/06 1600 05/06 0800 05/06 0000 05/05 1600 05/05 0800 05/05 0000 Intake Total 480 460 766 5716 480 400 Output Total 1000 675 550 650 750 950 Balance -520 -375 -250 570 -270 -550 Intake, IV 30 20 Intake, Oral 450 657 547 8382 480 400 Number 1 0 0 Bowel Movements Output, Urine 1000 675 550 650 750 950 Patient 248 lb 247 lb Weight Weight Bed scale Bed scale Measurement Method Physical Exam: General: no apparent distress. Alert. Eyes: No obvious scleral icterus. HEENT: No jugular venous distention or abnormal jugular venous pulsations. Cardiovascular: Normal intensity S1/S2. ICD noted Respiratory: scattered wheezes Abdomen: Soft, nontender with no guarding or rebound tenderness. Musculoskeletal: No clubbing or cyanosis noted; 1+ lower extremity edema Skin: No obvious rashes or ulcerations. Neurologic: No gross focal deficits noted. Lymph: No gross lymphadenopathy. Current Medications: Current Medications Sig/Penny Start time Last Medication Dose Route Stop Time Status Admin Acetaminophen 325 MG Q6P PRN 05/03 0015 AC PO Albuterol Sulfate 3 ML TID 05/03 2200 AC 05/06 INH 1330 Aspirin 81 MG DAILY 05/03 1000 AC 05/06 PO 0844 Atorvastatin Calcium 40 MG 1700 05/03 1700 AC 05/05 PO 1723 Azithromycin 500 MG DAILY 05/04 1000 AC 02/16 PO 0845 Budesonide/ 2 PUF BID 05/03 1000 AC 05/06 Formoterol Fumarate INH 0849 Calcium Carbonate 500 MG ONCE ONE 05/05 2044 DC 05/05 PO 05/05 Carvedilol 12.5 MG BID 05/04 2200 AC 05/06 PO 0844 Clopidogrel Bisulfate 75 MG DAILY 05/03 1000 AC 05/06 PO 0845 Furosemide 20 MG BID 05/04 2200 AC 05/06 IV 0849 Guaifenesin 10 ML Q6-PRN PRN 05/06 1045 AC PO Guaifenesin 10 ML Q6P PRN 05/05 2345 DC 05/06 PO 0514 Heparin Sodium 5,000 UNIT Q8 05/02 2255 AC 05/06 (Porcine) SC 1405 Isosorbide 60 MG DAILY 05/03 1000 AC 05/06 Mononitrate PO 0844 Levothyroxine Sodium 0.1 MG DAILY AC 05/03 0700 AC 05/06 PO 0513 Losartan Potassium 25 MG DAILY 05/03 1457 AC 05/06 PO 0844 Nitroglycerin 0.4 MG SEE ADMIN CRITERIA.. 05/03 0015 AC SL Prednisone 10 MG DAILY 05/08 1000 AC PO 05/09 0959 Prednisone 20 MG DAILY 05/07 1000 AC PO 05/08 0959 Prednisone 30 MG DAILY 05/06 1000 AC 05/06 PO 05/07 0959 0845 Ranolazine 500 MG BID 05/03 0007 AC 05/06 PO 0845 Tamsulosin HCl 0.4 MG AT BEDTIME 05/03 0015 AC 05/05 PO 2035 Tiotropium [place] 1 PUF DAILY 05/03 1000 AC 05/06 INH 0848 Results Last 48 Hrs of Labs/Mics: Laboratory Tests 05/06/17 0615: Anion Gap 9, Estimated GFR 40 L, BUN/Creatinine Ratio 25.3 H, Magnesium 1.9 05/05/17 0626: Anion Gap 8, Estimated GFR 40 L, BUN/Creatinine Ratio 21.8 Recent Imaging Studies: Telemetry tracings were personally reviewed and shows sinus rhythm Assessment/Plan Assessment/Plan 1. Shortness of breath most likely a combination of acute exacerbation of COPD along with acute on chronic systolic heart failure with elevated BNP and edema. 2. Ischemic cardiomyopathy ejection fraction 25% status post AICD 3. Coronary artery disease status post coronary bypass surgery known occluded vein grafts 4. Hypertension 5. Chronic COPD with nicotine dependence in remission 6. Carcinoma of the lung status post radiation therapy 7. Chronic renal insufficiency 8. Hx of aortic stenosis 9. Hx of Carotid artery disease/aortic aneurysm and peripheral vascular disease Feels "about the same". Scattered wheezes noted on exam today with a nonproductive cough. No recurrent episodes of NSVT. Can continue on the IV Lasix today and hopefully transition to oral Lasix tomorrow. He remains on a prednisone taper. Brady Arce MD [facility] Continue telemetry? Yes
[2017-05-06 21:00] VITALS: BP 132/62
[2017-05-07 06:00] VITALS: BP 112/68
[2017-05-07 09:43] VITALS: BP 112/68
--- NOTE | 2017-05-07 12:51 | PN- Cardiology ---
Subjective Subjective: Patient is feeling better and his lower extremity edema is improving. He does complain of back pain which he says is chronic. Objective Vital Signs and I&Os Vital Signs Date Time Temp Pulse Resp B/P B/P Pulse O2 O2 Flow FiO2 Mean Ox Delivery Rate 05/07 1007 96 Room Air Room Air 05/07 1006 93 Room Air Room Air 05/07 0943 112/05/07 0943 112/05/07 0943 112/05/07 0942 71 11205/07 0800 93 Room Air Room Air 05/07 0600 97.5 71 18 112/ 93 05/07 0359 77 93 05/07 0154 72 94 05/06 2102 96 Nasal 1.0L Cannula 05/06 2100 98.0 84 18 13262 96 Nasal 1.0L Cannula 05/06 2014 84 132/62 05/06 2014 84 132/62 05/06 2014 84 132/62 05/06 1914 93 Nasal 2.0L Cannula 05/06 1600 Nasal 1.0L Cannula 05/06 1435 98.1 85 18 116/68 93 Nasal 1.0L Cannula Intake & Output 05/07 1600 05/07 0800 05/07 0000 05/06 1600 05/06 0800 05/06 0000 Intake Total 360 480 300 300 Output Total 1675 1100 1000 675 550 Balance -1315 -1100 -520 -375 -250 Intake, IV 30 Intake, Oral 360 450 300 300 Number 1 Bowel Movements Output, Urine 1675 1100 1000 675 550 Patient 248 lb 248 lb Weight Weight Bed scale Measurement Method Physical Exam: General: no apparent distress. Alert. Eyes: No obvious scleral icterus. HEENT: No jugular venous distention or abnormal jugular venous pulsations. Cardiovascular: Normal intensity S1/S2. ICD noted, 6 SM Respiratory: trace scattered wheezes Abdomen: Soft, nontender with no guarding or rebound tenderness. Musculoskeletal: No clubbing or cyanosis noted; trace to 1+ lower extremity edema Skin: No obvious rashes or ulcerations. Neurologic: No gross focal deficits noted. Lymph: No gross lymphadenopathy. Current Medications: Current Medications Sig/Penny Start time Last Medication Dose Route Stop Time Status Admin Acetaminophen 325 MG Q6P PRN 05/03 0015 AC PO Albuterol Sulfate 3 ML TID 05/03 2200 AC 05/07 INH 0819 Aspirin 81 MG DAILY 05/03 1000 AC 05/07 PO 0942 Atorvastatin Calcium 40 MG 1700 05/03 1700 AC 05/06 PO 1728 Azithromycin 500 MG DAILY 05/04 1000 AC 05/07 PO 0942 Budesonide/ 2 PUF BID 05/03 1000 AC 05/07 Formoterol Fumarate INH 0944 Carvedilol 12.5 MG BID 05/04 2200 AC 05/07 PO 0942 Clopidogrel Bisulfate 75 MG DAILY 05/03 1000 AC 05/07 PO 0943 Furosemide 20 MG BID 05/04 2200 AC 05/07 IV 0943 Guaifenesin 10 ML Q6-PRN PRN 05/06 1045 AC 05/06 PO 2028 Heparin Sodium 5,000 UNIT Q8 05/02 2255 AC 05/07 (Porcine) SC 0533 Isosorbide 60 MG DAILY 05/03 1000 AC 05/07 Mononitrate PO 0943 Levothyroxine Sodium 0.1 MG DAILY AC 05/03 0700 AC 05/07 PO 0533 Losartan Potassium 25 MG DAILY 05/03 1457 AC 05/07 PO 0943 Nitroglycerin 0.4 MG SEE ADMIN CRITERIA.. 05/03 0015 AC SL Prednisone 10 MG DAILY 05/08 1000 AC PO 05/09 0959 Prednisone 20 MG DAILY 05/07 1000 AC 05/07 PO 05/08 0959 0943 Prednisone 30 MG DAILY 05/06 1000 DC 05/06 PO 05/07 0959 0845 Ranolazine 500 MG BID 05/03 0007 AC 05/07 PO 0943 Tamsulosin HCl 0.4 MG AT BEDTIME 05/03 0015 AC 05/06 PO 2015 Tiotropium [employer] 1 PUF DAILY 05/03 1000 AC 05/07 INH 0943 Results Last 48 Hrs of Labs/Mics: Laboratory Tests 05/06/17 0615: Anion Gap 9, Estimated GFR 40 L, BUN/Creatinine Ratio 25.3 H, Magnesium 1.9 Recent Imaging Studies: Telemetry tracings showed no evidence of sustained arrhythmia Assessment/Plan Assessment/Plan 1. Shortness of breath most likely a combination of acute exacerbation of COPD along with acute on chronic systolic heart failure with elevated BNP and edema. 2. Ischemic cardiomyopathy ejection fraction 25% status post AICD 3. Coronary artery disease status post coronary bypass surgery known occluded vein grafts 4. Hypertension 5. Chronic COPD with nicotine dependence in remission 6. Carcinoma of the lung status post radiation therapy 7. Chronic renal insufficiency 8. Hx of aortic stenosis 9. Hx of Carotid artery disease/aortic aneurysm and peripheral vascular disease Patient is feeling better today. I&O's demonstrates excellent diuresis. He tells me he was only taking the Lasix once daily at home. Recommend transitioning to Lasix 40 mg by mouth once daily. He remains on a prednisone taper. He should follow-up in our office within one week of discharge. Brady Arce MD [facility] Continue telemetry? No
[2017-05-07] MEDS ORDERED: LASIX20 M1 PO (13:46)
--- NOTE | 2017-05-07 13:50 | PN- Att Addend ---
Attending Addendum Attending Brief Note 76-year-old male with past medical history significant for COPD not on home oxygen, systolic congestive heart failure, has been admitted to the floor for CHF exacerbation and COPD exacerbation. He was treated with IV Lasix, steroids, TRC nebs, and supplemental oxygen. She was seen and examined on the bedside and reported that he is doing pretty well and his shortness of breath has been improved. Cardiology has followed up on the patient and has adjusted his medications and patient will be discharged on Lasix 40 mg once daily and prednisone taper and will continue the rest of his home medications with a follow-up with his primary care physician in one week and with the fuse cutter in one week.
[2017-05-07] MEDS ORDERED: COREG12.5 M1 PO (15:08)
[2017-05-07] MEDS ORDERED: PREDNISONE10 M2 PO (15:08)
[2017-05-07] MEDS ORDERED: AZITHROMYCIN500 M3 PO (15:12)
== END 2017-05-07 14:48 | DRG 291 ==
LOC: ERH 16:30 → C/ERH 18:04 → ERH 18:22 → ERHI 21:41 → CANRESERV 22:05 → ENRESERV 22:05 → EDBEDREQ 22:42 → ENRESERV 05-03 14:15 → ENTRNSPT 05-03 15:34 → 1NO 05-03 15:44 → EDTRNSPTSTS 05-03 15:49 → EDTRNSPT 05-03 15:49 → CMPTRNSPT 05-03 16:37 → 1NO 05-03 21:09 → ENPENDDIS 05-07 13:47 → 1NO 05-07 14:48 → ENTRNSPT 05-07 14:52 → EDTRNSPTSTS 05-07 15:13 → EDTRNSPT 05-07 15:13 → CMPTRNSPT 05-07 20:21
PROVIDERS: Physician Assistant Medical
PROC: 5A09357 Assistance with Respiratory Ventilation, Less than 24 Consecutive Hours, Continuous Positive Airway Pressure (ICD-10-PCS; principal; 2017-05-04)
DX: I13.0 Hypertensive heart and chronic kidney disease with heart failure and stage 1 through stage 4 chronic kidney disease, or unspecified chronic kidney disease (principal); I50.23 Acute on chronic systolic (congestive) heart failure; J96.01 Acute respiratory failure with hypoxia; J44.1 Chronic obstructive pulmonary disease with (acute) exacerbation; J44.0 Chronic obstructive pulmonary disease with (acute) lower respiratory infection; I25.5 Ischemic cardiomyopathy; I25.10 Atherosclerotic heart disease of native coronary artery without angina pectoris; I35.0 Nonrheumatic aortic (valve) stenosis; Z95.1 Presence of aortocoronary bypass graft; N18.3 Chronic kidney disease, stage 3 (moderate); Z85.89 Personal history of malignant neoplasm of other organs and systems; Z85.118 Personal history of other malignant neoplasm of bronchus and lung; Z92.3 Personal history of irradiation; I73.9 Peripheral vascular disease, unspecified; E03.9 Hypothyroidism, unspecified; G47.33 Obstructive sleep apnea (adult) (pediatric); Z95.810 Presence of automatic (implantable) cardiac defibrillator; Z79.82 Long term (current) use of aspirin; Z79.52 Long term (current) use of systemic steroids; Z87.891 Personal history of nicotine dependence; Z79.51 Long term (current) use of inhaled steroids; I44.0 Atrioventricular block, first degree; R00.0 Tachycardia, unspecified; J20.9 Acute bronchitis, unspecified
CPT/HCPCS: 1NP; ERO; 36415; 36592; 71046; 82436; 87070; 87804; 87804-59; 93005; 93010; 93306; 96372; 96374; 96375; J0456; J1644; J1940; J2920; J2930; J3490; J7060; J7512

== ENCOUNTER 2017-05-10 03:18 | Observation (INO) | payer OTHER, MEDICARE ==
[~2017-05-10] VITALS: Ht 182.9 cm; Wt 113.4 kg
[~2017-05-10 03:18] MED LIST changes: +AZITHROMYCIN500 M3 PO; +COREG12.5 M1 PO
--- NOTE | 2017-05-10 03:26 | ED DYSPNEA/ASTHMA COMPLAINT ---
History of Present Illness General Chief Complaint: Dyspnea (COPD, CHF, Other) Stated Complaint: DIFF BREATHING, O2 93% AT CRYPTOLOGIST Source: patient Exam Limitations: no limitations Vital Signs & Intake/Output Vital Signs & Intake/Output Vital Signs Date Time Temp Pulse Resp B/P B/P Pulse O2 O2 Flow FiO2 Mean Ox Delivery Rate 05/10 0545 96.9 73 22 101/54 97 Nasal 2.0L Cannula 05/10 0430 97 Nasal 2.0L Cannula 05/10 042 97 Nasal 2.0L Cannula 05/10 0353 96.0 75 24 112/68 88 Room Air Room Air Allergies Coded Allergies: NO KNOWN ALLERGIES (06/23/14) Reconcile Medications Acetaminophen 325 MG CAPSULE 1 CAP PO Q6 PRN PAIN (Reported) Albuterol Sulfate (Proair Hfa) 90 MCG HFA.AER.AD 2 PUF INH Q4 COPD Aspirin (Aspirin*) 81 MG TAB.CHEW 1 TAB PO DAILY heart (Reported) Atorvastatin Calcium (Lipitor) 40 MG TABLET 1 TAB PO DAILY cholesterol ( Reported) Azithromycin 500 MG TABLET 1 MG PO DAILY antiinflammatory Budesonide/Formoterol Fumarate (Symbicort 160-4.5 Mcg Inhaler) 160 MCG-4.5 MCG/ ACTUATION HFA.AER.AD 2 PUF INH BID COPD (Reported) Candesartan Cilexetil 4 MG TABLET 1 TAB PO DAILY CARDIOMYOPATHY Carvedilol (Coreg) 12.5 MG TABLET 1 TAB PO BID CHF . Clopidogrel Bisulfate (Clopidogrel) 75 MG TABLET 1 TAB PO DAILY BLOOD THINNER (Reported) Furosemide (Lasix) 20 MG TABLET 2 TAB PO DAILY FLUID OVERLOAD Gabapentin (Neurontin) 800 MG TABLET 1 TAB PO TID BACK PAIN (Reported) Isosorbide Mononitrate (Isosorbide Mononitrate ER) 60 MG TAB.ER.24H 1 TAB PO DAILY (Reported) Levothyroxine Sodium 100 MCG TABLET 1 TAB PO DAILY THYROID (Reported) Nitroglycerin (Nitrostat) 0.4 MG TAB.SUBL 1 TAB SL AD PRN CHEST PAIN ( Reported) 1st sign of attack; may repeat every 5 minutes until relief; if pain persists after 3 tablets in 15 minutes, prompt medical att Prednisone 10 MG TABLET 0 PO DAILY COPD 20MG 05/07 10NG 05/08 STOP. Ranolazine (Ranexa) 500 MG TAB.ER.12H 1 TAB PO BID heart (Reported) Tamsulosin HCl (Flomax) 0.4 MG CAP.ER.24H 1 CAP PO QHS prostate Please take at bed time to avoid low blood pressure during the day. Tiotropium [place] (Spiriva) 18 MCG CAP.W.DEV 1 CAP INH DAILY COPD (Reported) Triage Nurses Notes Reviewed? yes Onset: Gradual Duration: day(s): Timing: recent history Severity: moderate Activities at Onset: none Prior Episodes/Possible Cause: occasional episodes Modifying Factors: Improves With: rest. Associated Symptoms: cough, wheezing HPI: 76 YO gentleman h/o cabg/cad h/o copd discharged 3 days ago with a COPD exacerbation. He presents saying that he continues to have shortness of breath and wheezing. "I can't catch my breath... I'm really wheezing." He notes no chest pain, diaphoresis, syncopal symptoms. He is otherwise well. Past History Travel History Traveled to [place] past 21 day No Medical History Any Pertinent Medical History? 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 No Review of Systems Review of Systems Constitutional: Reports: no symptoms. EENTM: Reports: no symptoms. Respiratory: Reports: no symptoms. Cardiovascular: Reports: no symptoms. GI: Reports: no symptoms. Genitourinary: Reports: no symptoms. Musculoskeletal: Reports: no symptoms. Skin: Reports: no symptoms. Neurological/Psychological: Reports: no symptoms. Hematologic/Endocrine: Reports: no symptoms. Immunologic/Allergic: Reports: no symptoms. All Other Systems: Reviewed and Negative Physical Exam Physical Exam General Appearance: well developed/nourished, mild distress Head: atraumatic Eyes: Bilateral: normal appearance. Ears, Nose, Throat: normal pharynx, normal ENT inspection Neck: normal inspection, supple, full range of motion Respiratory: wheezing Cardiovascular: regular rate/rhythm Gastrointestinal: normal bowel sounds, soft, non-tender Extremities: normal inspection, normal capillary refill, normal range of motion, no edema Neurologic/Psych: no motor/sensory deficits, awake, alert, oriented x 3 Skin: intact, normal color, warm/dry Core Measures ACS in differential dx? No CVA/TIA Diagnosis No Sepsis Present: No Sepsis Focused Exam Completed? No Progress Differential Diagnosis: altitude sickness, bronchitis, CHF, COPD, pneumonia Plan of Care: Orders Procedure Date/time Status Nothing by Mouth 05/10 B Active Saline Lock 05/[address] in observation 05/10 554 Active Misc Message 05/10 05 Active ED Holding Orders 05/10 05 Active Vital Signs 05/10 05 Active LUNG SCAN (V/Q) 05/10 554 Active Code Status 05/10 05 Active B-TYPE NATRIURETIC PEP (BNP) 05/10 044 Complete BLOOD CULTURE 05/10 0400 Active RAPID VIRAL INFLUENZA A 05/10 0357 Active BLOOD CULTURE 05/10 0357 Active TROPONIN LEVEL 05/10 0324 Complete LIPASE 05/10 0324 Complete HEPATIC FUNCTION PANEL 05/10 0324 Complete D-DIMER 05/10 0324 Complete CBC WITHOUT DIFFERENTIAL 05/10 0324 Complete BASIC METABOLIC PANEL 05/10 0324 Complete AMYLASE 05/10 0324 Complete EKG 05/10 0324 Active Laboratory Tests 05/10/17 0449: Anion Gap 7, Estimated GFR 46 L, BUN/Creatinine Ratio 30.0 H, Glucose 172 H, Calcium 9.0, Total Bilirubin 0.6, Direct Bilirubin 0.2, AST 14 L, ALT 23, Alkaline Phosphatase 81, Troponin I 0.08, Str-X-Fkvqjfrytho Pept 3210 H, Total Protein 5.5 L, Albumin 3.3 L, Amylase 45, Lipase 50, D-Dimer High Sensitivty 1569 H, CBC w Diff MAN DIFF ORDERED, RBC 3.15 L, MCV 101.8 H, MCH 34.0 H, MCHC 33.4, RDW 15.4 H, MPV 8.1, Gran % 83.6 H, Lymphocytes % 7.0 L, Monocytes % 6.7, Eosinophils % 2.4, Basophils % 0.3, Absolute Granulocytes 8.7 H, Segmented Neutrophils 89 H, Band Neutrophils 2, Absolute Lymphocytes 0.7 L, Lymphocytes 2 L, Monocytes 3, Absolute Monocytes 0.7 H, Eosinophils 2, Absolute Eosinophils 0.3, Absolute Basophils 0, Metamyelocytes 2 H, Platelet Estimate ADEQUATE, Polychromasia 1+, Hypochromic-Microcytic 1+, Poikilocytosis 1 + 05/10/17 0326: Rvd-H-Cyarogrmdfs Pept Cancelled Microbiology 05/10 05 BLOOD: Blood Culture - RECD 05/10 0509 BLOOD: Blood Culture - RECD 05/10 0357 NASOPHARYN: Influenza Virus A & B Rapid Smear - ORD Diagnostic Imaging: Viewed by Me: Radiology Read. Discussed w/RAD: Radiology Read. CXR Impression: PATIENT: EMILY FRANCO JR PRESENT AGE: 76 PATIENT ACCOUNT NO: [id number] : 42 LOCATION: [facility] ORDERING PHYSICIAN: Percy Echevarria MD SERVICE DATE: 05/10/17 EXAM TYPE: RAD - XRY-PORTABLE CHEST XRAY EXAMINATION: XR PORTABLE CHEST CLINICAL INFORMATION: Dyspnea COMPARISON: 05/02/2017 TECHNIQUE: Portable frontal view of the chest was obtained. FINDINGS: Left chest wall single-lead AICD/pacer is unchanged. Median sternotomy wires appear intact. The lungs are well expanded. There is hazy left basilar opacity. No pleural effusion or pneumothorax. The cardiomediastinal silhouette remains prominent. No acute osseous abnormality. IMPRESSION: Hazy opacity at the left base may represent atelectasis or pneumonia. DICTATED BY: Piotr Burton MD DATE/TIME DICTATED:05/10/17430 MEDIA SALES CONSULTANT:CAROL ANN DATE/TIME TRANSCRIBED:05/10/17430 CONFIDENTIAL, DO NOT COPY WITHOUT APPROPRIATE AUTHORIZATION. <Electronically signed in Other Vendor System> SIGNED BY: Josephine LUND,Piotr 05/10/17435 Initial ED EKG: LBBB Departure Departure Disposition: STILL A PATIENT Condition: Stable Clinical Impression Primary Impression: COPD exacerbation Referrals: Sayra Tang MD (PCP/Family) Departure Forms: Customer Survey General Discharge Information Comments 05/10/17, 5:52am... radiology called... due to his elevated creatinine, pt to have v/q scan. Observation Note Spoke With: Ximena Calhoun MD Place Patient In: Non-ED OBS Care Area Rationale for Observation: My rational for observation is as follows . pt with copd exacerbation, recently discharged, now with hypoxia, wheezing,,, merits steroids, abx, 02 support... +dimer noted.... radiology wishes to pursue v/q scan this AM rather than risk angio due to elevated creatinine. Critical Care Note Critical Care Note Critical Care Time: non-applicable
--- NOTE | 2017-05-10 04:36 | RADIOLOGY REPORT ---
EXAMINATION: XR PORTABLE CHEST CLINICAL INFORMATION: Dyspnea COMPARISON: 05/02/2017 TECHNIQUE: Portable frontal view of the chest was obtained. FINDINGS: Left chest wall single-lead AICD/pacer is unchanged. Median sternotomy wires appear intact. The lungs are well expanded. There is hazy left basilar opacity. No pleural effusion or pneumothorax. The cardiomediastinal silhouette remains prominent. No acute osseous abnormality. IMPRESSION: Hazy opacity at the left base may represent atelectasis or pneumonia.
[2017-05-10 05:12] LABS: ABSOLUTE BASOPHIL COUNT 0 /CUMM (0.0-0.2); ABSOLUTE EOSINOPHIL COUNT 0.3 /CUMM (0.0-0.7); ABSOLUTE GRANULOCYTE CT 8.7 /CUMM (1.4-6.5); ABSOLUTE LYMPH COUNT 0.7 /CUMM (1.2-3.4); ABSOLUTE MONOCYTE COUNT 0.7 /CUMM (0.10-0.60); BASOPHIL % 0.3 % (0.0-2.0); EOSINOPHIL % 2.4 % (0-5); GRANULOCYTE % 83.6 % (42.2-75.2); HEMATOCRIT 32.1 % (42-52); MEAN CORPUSCULAR HGB CONC 33.4 G/DL (33.0-37.0); MEAN CORPUSCULAR VOLUME 101.8 FL (80.0-94.0); MEAN PLATELET VOLUME 8.1 FL (7.4-10.4); PLATELET COUNT 142 /CUMM (130-400); RBC DISTRIBUTION WIDTH 15.4 % (11.5-14.5); RED BLOOD CELL CT 3.15 /CUMM (4.70-6.10); WHITE BLOOD CELL COUNT 10.4 /CUMM (4.8-10.8)
--- NOTE | 2017-05-10 07:54 | History & Physical ---
Adrián Ely 05/10/17 0753: General Information and HPI MD Statement: I have seen and personally examined JOANEMILY Alessandra HUSAIN and documented this H&P. The patient is a 76 year old M who presented with a patient stated chief complaint of shortness of breath, wheezes. Source of Information: patient Exam Limitations: no limitations History of Present Illness: This is a 76-year-old male with past medical history significant for COPD not on home oxygen, coronary artery disease status post CABG and stents, hypertension, ischemic cardiomyopathy status post AICD placement, chronic systolic heart failure with ejection fraction 20%, hypothyroidism, BPH, carotid artery disease, peripheral vascular disease, obstructive sleep apnea on CPAP, moderate aortic stenosis presented with worsening shortness of breath for 2 days. Patient was recently admitted to [facility] telemetry for acute hypoxic respiratory failure, CHF exacerbation, COPD exacerbation. Received IV Lasix, steroids, antibiotics. He completed steroid and antibiotic treatment. Echocardiogram was done which showed ejection fraction 20-25% with akinesis of inferior wall. He was discharged from the hospital on 05/06/2017. After discharge from hospital he was doing good for 24 hours. After that he started having shortness of breath on minimal exertion associated with wheezing. He denied any chest pain, palpitation, fever, chills, productive cough, hemoptysis. However because of worsening shortness of breath and wheezing he decided to come to the emergency room. Review of systems negative except for shortness of breath, wheezing. Denies any worsening swelling of bilateral lower extremities. No nausea, vomiting, abdominal pain, change in bladder or bowel habits. Compliant with his medications. Denies smoking, alcohol use, illicit drug abuse. Allergies/Medications Allergies: Coded Allergies: NO KNOWN ALLERGIES (NONE 05/10/17) Home Med list Acetaminophen 325 MG CAPSULE 1 CAP PO Q6 PRN PAIN (Reported) Albuterol Sulfate (Proair Hfa) 90 MCG HFA.AER.AD 2 PUF INH Q4 COPD Aspirin (Aspirin*) 81 MG TAB.CHEW 1 TAB PO DAILY heart (Reported) Atorvastatin Calcium (Lipitor) 40 MG TABLET 1 TAB PO DAILY cholesterol ( Reported) Azithromycin 500 MG TABLET 1 MG PO DAILY antiinflammatory Budesonide/Formoterol Fumarate (Symbicort 160-4.5 Mcg Inhaler) 160 MCG-4.5 MCG/ ACTUATION HFA.AER.AD 2 PUF INH BID COPD (Reported) Candesartan Cilexetil 4 MG TABLET 1 TAB PO DAILY CARDIOMYOPATHY Carvedilol (Coreg) 12.5 MG TABLET 1 TAB PO BID CHF . Clopidogrel Bisulfate (Clopidogrel) 75 MG TABLET 1 TAB PO DAILY BLOOD THINNER (Reported) Furosemide (Lasix) 20 MG TABLET 2 TAB PO DAILY FLUID OVERLOAD Gabapentin (Neurontin) 800 MG TABLET 1 TAB PO TID BACK PAIN (Reported) Isosorbide Mononitrate (Isosorbide Mononitrate ER) 60 MG TAB.ER.24H 1 TAB PO DAILY (Reported) Levothyroxine Sodium 100 MCG TABLET 1 TAB PO DAILY THYROID (Reported) Nitroglycerin (Nitrostat) 0.4 MG TAB.SUBL 1 TAB SL AD PRN CHEST PAIN ( Reported) 1st sign of attack; may repeat every 5 minutes until relief; if pain persists after 3 tablets in 15 minutes, prompt medical att Prednisone 10 MG TABLET 0 PO DAILY COPD 20MG 05/07 10NG 05/08 STOP. Ranolazine (Ranexa) 500 MG TAB.ER.12H 1 TAB PO BID heart (Reported) Tamsulosin HCl (Flomax) 0.4 MG CAP.ER.24H 1 CAP PO QHS prostate Please take at bed time to avoid low blood pressure during the day. 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 spouse Services at Home: None Primary Language: Telugu ETOH Use: denies use Illicit Drug Use: denies illicit drug use Living Will? no Functional Ability ADLs Independent: dressing, eating, toileting, bathing. Ambulation: independent Review of Systems Review of Systems Constitutional: Reports: weakness. Denies: chills, diaphoresis, fever, malaise, unexplained weight loss. EENTM: Denies: blurred vision, double vision, visual changes. Cardiovascular: Reports: edema, orthopena. Denies: chest pain, palpitations, peripheral edema, syncope. Respiratory: Reports: short of breath, wheezing. Denies: cough, hemoptysis, orthopnea. GI: Denies: abdominal pain, bloating, diarrhea, nausea, changes in stool. Genitourinary: Denies: discharge, dysuria, frequency. Musculoskeletal: Denies: back pain, gout, joint pain. Neurological/Psychological: Denies: ataxia, confusion, depressed, dementia. Exam & Diagnostic Data Last 24 Hrs of Vital Signs/I&O Vital Signs Date Time Temp Pulse Resp B/P B/P Pulse O2 O2 Flow FiO2 Mean Ox Delivery Rate 05/10 0818 98.6 75 24 120/64 92 Nasal 2.0L Cannula 05/10 0816 92 Nasal 2.0L Cannula 05/10 0545 96.9 73 22 101/54 97 Nasal 2.0L Cannula 05/10 0430 97 Nasal 2.0L Cannula 05/10 0425 97 Nasal 2.0L Cannula 05/10 0353 96.0 75 24 112/68 88 Room Air Room Air Intake & Output 05/10 1600 05/10 0800 05/10 0000 Intake Total Output Total Balance Patient 113.398 kg 113.398 kg Weight Weight Reported by Patient Measurement Method Physical Exam General Appearance Alert, Oriented X3, Cooperative, No Acute Distress Skin No Rashes, No Breakdown Skin Temp/Moisture Exam: Warm/Dry Sepsis Skin Exam (color): Normal for Ethnicity HEENT Atraumatic, PERRLA, EOMI, Mucous Membr. moist/pink Neck Supple, No LAD Lymphatic Cervical nl Cardiovascular Normal S1, Normal S2, grade2 GLADYS Lungs Normal Air Movement, b/l wheezes Abdomen Normal Bowel Sounds, Soft, No Tenderness Neurological Strength at 5/5 X4 Ext, Cranial Nerves 3-12 NL Extremities No Clubbing, No Cyanosis, No Edema Vascular Normal Pulses, Pulses Symmetrical Sepsis Peripheral Pulse Location: Radial Sepsis Peripheral Pulse Exam: Normal Sepsis Cap Refill Exam: <2 Sec Last 24 Hrs of Labs/Abimael: Laboratory Tests 05/10/17 0449: Anion Gap 7, Estimated GFR 46 L, BUN/Creatinine Ratio 30.0 H, Glucose 172 H, Calcium 9.0, Total Bilirubin 0.6, Direct Bilirubin 0.2, AST 14 L, ALT 23, Alkaline Phosphatase 81, Troponin I 0.08, Hvz-U-Noakdabhgkk Pept 3210 H, Total Protein 5.5 L, Albumin 3.3 L, Amylase 45, Lipase 50, D-Dimer High Sensitivty 1569 H, CBC w Diff MAN DIFF ORDERED, RBC 3.15 L, MCV 101.8 H, MCH 34.0 H, MCHC 33.4, RDW 15.4 H, MPV 8.1, Gran % 83.6 H, Lymphocytes % 7.0 L, Monocytes % 6.7, Eosinophils % 2.4, Basophils % 0.3, Absolute Granulocytes 8.7 H, Segmented Neutrophils 89 H, Band Neutrophils 2, Absolute Lymphocytes 0.7 L, Lymphocytes 2 L, Monocytes 3, Absolute Monocytes 0.7 H, Eosinophils 2, Absolute Eosinophils 0.3, Absolute Basophils 0, Metamyelocytes 2 H, Platelet Estimate ADEQUATE, Polychromasia 1+, Hypochromic-Microcytic 1+, Poikilocytosis 1 + 05/10/17 0326: Nbv-H-Wiognuqriaa Pept Cancelled Microbiology 05/10 0840 NASOPHARYN: Influenza Virus A & B Rapid Smear - COMP 05/10 0749 URINE ROUT: Legionella Antigen - ORD 05/10 0749 URINE ROUT: Streptococcus pneumoniae Antigen (M - ORD 05/10 0749 URINE ROUT: Urine Culture - ORD 05/10 0749 LOWER RESP: Respiratory Culture - ORD 05/10 0749 LOWER RESP: Gram Stain - ORD 05/10 0529 BLOOD: Blood Culture - RECD 05/10 0509 BLOOD: Blood Culture - RECD Assessment/Plan Assessment: This is a 76-year-old male with past medical history significant for COPD not on home oxygen, coronary artery disease status post CABG and stents, hypertension, ischemic cardiomyopathy status post AICD placement, chronic systolic heart failure with ejection fraction 20%, hypothyroidism, BPH, carotid artery disease, peripheral vascular disease, obstructive sleep apnea on CPAP, moderate aortic stenosis presented with worsening shortness of breath for 2 days. Patient was recently admitted to [facility] telemetry for acute hypoxic respiratory failure, CHF exacerbation, COPD exacerbation. Received IV Lasix, steroids, antibiotics. He completed steroid and antibiotic treatment. Echocardiogram was done which showed ejection fraction 20-25% with akinesis of inferior wall. He was discharged from the hospital on 05/06/2017. Vitals at the time of admission afebrile, heart rate 75, respiratory rate 24, blood pressure 120/60, saturating at 88 on 2 L oxygen. Labs WBC 10.4, hemoglobin 10 and hematocrit 32, platelets 142 BUN 45 and creatinine 1.5 D-dimer 1569 ProBNP 3210 Troponin 0.08 Amylase lipase, LFTs normal Chest x-ray showed hazy opacity left lung base atelectasis versus pneumonia EKG sinus rhythm, rate 66, left bundle branch block 1. Acute hypoxic respiratory failure/COPD exacerbation and pneumonia Patient was discharged from hospital after being treated for CHF exacerbation and COPD with prednisone and azithromycin on 2017. He reports worsening shortness of breath. He was found to be tachypneic, hypoxic requiring 2 L in the emergency room. He is afebrile with a normal WBC count. However given his worsening shortness of breath, chest x-ray findings suggestive of atelectasis versus pneumonia will place him under observation status in general medicine floor * Place under observation * Monitor vitals every shift * Provide oxygen supplementation * Maintain oxygen saturation year above 88. * Will treat him for COPD exacerbation and pneumonia * IV methylprednisolone 40 mg daily * Will start antibiotics based on CAT scan chest findings for any pneumonia * Total respiratory care * Nebulizer treatments * Follow blood culture, urine culture, sputum culture * Follow-up flu slab * Follow-up urine Legionella and streptococcal antigen * Follow-up pulmonology recommendations 2. Elevated D dimers Patient presented with acute worsening of shortness of breath. He was found to have elevated d-dimer 1569. * However given his elevated creatinine 1.[address] angiogram of chest * Please follow-up VQ scan for any pulmonary embolism * Follow up serial troponin and EKG 11 AM, 5 PM * Echocardiogram was done on 05/04/2017 showed ejection fraction 20% with akinesis of inferior wall 3. Chronic kidney disease Creatinine 1.5. Baseline creatinine 1.7. Avoid nephrotoxins. 4. Stable proBNP 3210 continue home medications. 5. Obstructive sleep apnea continue CPAP 6. Coronary artery disease status post CABG and stents continue aspirin, Plavix, atorvastatin 7. Ischemic cardiomyopathy, chronic systolic heart failure with ejection fraction 20% * Continue candesartan * Continue carvedilol 12.5 twice daily * Continue Lasix 40 mg daily * Continue isosorbide 60 daily * Continue ranolazine 500 twice daily 8. Hypothyroidism continue levothyroxine 100 g daily 9. BPH continue tamsulosin 0.4 daily He is full code DVT prophylaxis subcutaneous heparin Heart healthy diet Pain pathway ordered As Ranked By This Provider Problem List: 1. COPD exacerbation 2. Hypoxia Core Measures/Misc (12/05) Acute Coronary Syndrome ACS Diagnosis: No Congestive Heart Failure Congestive Heart Failure Diagnosis No Cerebrovascular Accident CVA/TIA Diagnosis: No VTE (View Protocol) VTE Risk Factors Age>40 No Mechanical VTE Prophylaxis d/t N/A MechProphylax Ordered No VTE Pharm Prophylaxis d/t NA PharmProphylax ordered Sepsis (View protocol) Sepsis Present: No Bud,Adilsonangel 05/10/17 1226: Attending MD Review Statement Attending Statement Attending MD Statement: examined this patient, discuss w/resident/PA/[facility], agreed w/resident/PA[facility], discussed with family, reviewed EMR data (avail), discussed with nursing, discussed with case mgmt, reviewed images, amended to note Attending Assessment/Plan: Patient seen/examined bedside. Patient c/o b/l wheezing and going for V/q scan, CT chest. Patient is started on iv steroids, abx, oxygen supplementation, bronchodilators. Cloely monitor repsiratroy status.
[2017-05-10 08:18] VITALS: BP 120/64
--- NOTE | 2017-05-10 14:23 | CT SCAN REPORT ---
EXAMINATION: CT CHEST WITHOUT CONTRAST CLINICAL INFORMATION: Rule out pneumonia. Shortness of breath wheezing hypoxia and chest x-ray showing pneumonia. COMPARISON: CT scan of the chest dated 10/05/2016. TECHNIQUE: Multidetector volumetric CT imaging of the chest was done. Axial MIP volume rendering provided. Sagittal and coronal reformatted images were obtained. DLP: 1610.14 mGy-cm FINDINGS: FERMENTER: Increased densities in the left lower lung comparable to the plain film study on the same day as the current study. LUNGS: There is interval development of an area of increased density in the left lower lobe, which extends from the anterior margin of the left lower lobe to the mid and posterior regions, abutting the fissure lines and extending minimally into the left upper lobe along the midportion of the major fissure. The area of increased density is groundglass like quality without a solid appearing component, however the location correlates very well with the location of the previously biopsied pulmonary nodule in the left lung. MEDIASTINUM: No mediastinal or hilar lymphadenopathy is noted. There is enlargement of the left ventricle with heavy coronary vascular calcifications. No pericardial effusion is noted. A left-sided MediPort is present with the catheter extending into the cavoatrial junction Heavy atherosclerotic plaque is present within the thoracic aorta, however the thoracic aorta is normal in caliber. There is prominence of the aorta in the upper abdomen, which measures 4.9 cm in anterior posterior dimension at the level of the deedee of the diaphragm. PLEURA: There is no pleural effusion. There is pleural thickening in the lateral, posterior and posteromedial aspect of the left lower lobe extending from the mid lung to the left lung base along the periphery of the left lower lobe. AXILLA: No lymphadenopathy. UPPER ABDOMEN: Unremarkable. OSSEOUS STRUCTURES: Sclerotic endplate changes are present at multiple levels in the mid and lower thoracic spine. No focal lytic or sclerotic lesions are present.. IMPRESSION: 1. Interval development of groundglass type density involving the predominantly the left lower lobe extending from the anterior margin of the major fissure posteriorly within the left lower lobe, as noted above this correlates with the location of the previously biopsied left pulmonary nodule. The area of increased density extends minimally along the major fissure into the posterior aspect of the left upper lobe. Differential diagnostic considerations would include an infectious process, however disease progression of the patient's pulmonary malignancy is not excluded on the basis of the study. 2. Pleural thickening along the lateral, posterior and posteromedial margins of the left lower lobe. 3. Prominent caliber of the upper abdominal aorta, measuring 4.9 cm in anterior posterior dimension as described.
[2017-05-10 15:19] VITALS: BP 1140/64
--- NOTE | 2017-05-10 15:19 | PN- Pulmonary ---
Subjective HPI/Critical Care Issues: Patient recently discharged for exacerbation of CHF and COPD. On home he developed increasing cough shortness of breath wheezing without fevers chills chest pain or sputum production. On admission resting room oximetry was 89% and is now [address] scan without contrast shows left lower lobe changes which may be related to prior radiation for lung cancer. His BNP remains markedly elevated in the setting of an ejection fraction of 20% Objective Current Medications: Current Medications Sig/Penny Start time Last Medication Dose Route Stop Time Status Admin Acetaminophen 650 MG Q6P PRN 05/10 0745 AC PO Albuterol Sulfate 3 ML EVERY 4 HRS/AWAKE 05/10 1200 AC 05/10 INH 1031 Albuterol Sulfate 2 PUF Q4 05/10 1000 CAN INH Albuterol Sulfate 3 ML ONCE ONE 05/10 0400 DC 05/10 INH 05/10 0401 0434 Aspirin 81 MG DAILY 05/10 1000 AC 05/10 PO 1227 Atorvastatin Calcium 40 MG 1700 05/10 1700 AC PO Azithromycin 500 MG ONCE ONE 05/10 0400 DC 05/10 PO 05/10 0401 0539 Budesonide/ 2 PUF BID 05/10 1000 AC 05/10 Formoterol Fumarate INH 1228 Carvedilol 12.5 MG BID 05/10 1000 AC 05/10 PO 1227 Ceftriaxone Sodium 0 .STK-MED ONE 05/10 0534 DC .ROUTE Ceftriaxone Sodium 1,000 MG ONCE ONE 05/10 0400 DC 05/10 IV 05/10 0401 0539 Clopidogrel Bisulfate 75 MG DAILY 05/10 1000 AC 05/10 PO 1228 Furosemide 40 MG DAILY 05/10 1000 AC 05/10 PO 1228 Gabapentin 800 MG Q8 05/10 1400 AC 05/10 PO 1331 Heparin Sodium 5,000 UNIT Q8 05/10 1400 AC 05/10 (Porcine) SC 1330 Ipratropium [place] 2.5 ML ONCE ONE 05/10 0400 DC 05/10 INH 05/10 0401 0434 Isosorbide 60 MG DAILY 05/10 1000 AC 05/10 Mononitrate PO 1227 Levothyroxine Sodium 0.1 MG DAILY AC 05/10 1000 AC 05/10 PO 1228 Losartan Potassium 25 MG DAILY 05/10 1000 AC 05/10 PO 1228 Methylprednisolone 40 MG DAILY 05/10 1400 AC 05/10 IV 1330 Methylprednisolone 0 .STK-MED ONE 05/10 0502 DC .ROUTE Methylprednisolone 125 MG ONCE ONE 05/10 0400 DC 05/10 IV 05/10 0401 0503 Non-Formulary 0 SEE ADMIN CRITERIA 05/10 0800 CAN Medication ANY Ranolazine 500 MG BID 05/10 1000 AC 05/10 PO 1228 Tamsulosin HCl 0.4 MG AT BEDTIME 05/10 2200 AC PO Tiotropium [place] 1 PUF DAILY 05/10 1000 AC 05/10 INH 1232 Vital Signs & I&O Last 24 Hrs of Vitals and I&O: Vital Signs Date Time Temp Pulse Resp B/P B/P Pulse O2 O2 Flow FiO2 Mean Ox Delivery Rate 05/10 1228 76 118/68 05/10 1228 76 118/68 05/10 1227 76 118/68 05/10 1227 76 118/68 05/10 1028 Nasal 2.0L Cannula 05/10 1027 95 Nasal 2.0L Cannula 05/10 0818 98.6 75 24 120/64 92 Nasal 2.0L Cannula 05/10 0816 92 Nasal 2.0L Cannula 05/10 0545 96.9 73 22 101/54 97 Nasal 2.0L Cannula 05/10 0430 97 Nasal 2.0L Cannula 05/10 0425 97 Nasal 2.0L Cannula 05/10 0353 96.0 75 24 112/68 88 Room Air Room Air Intake & Output 05/10 1600 05/10 0800 05/10 0000 Intake Total 800 Output Total 950 Balance -150 Intake, Oral 800 Output, Urine 950 Patient 250 lb 250 lb Weight Weight Reported by Patient Measurement Method Oxygen saturation 2 L 95% exam of his chest shows scattered expiratory wheezes cardiac exam shows regular S1 and S2 there is no edema Impression/Plan Impression/Plan Impression/Plan: 76-year-old with history of lung cancer status post radiation severe COPD cardiomyopathy admitted with recurrent shortness of breath and bronchospasm. Absence of feverleukocytosis and nonspecific chest x-ray suggest a likely noninfectious process. Recommendations: Increase Solu-Medrol to every 8 hours. Aggressive pulmonary toilet. Provide flutter valve for expectoration taper FiO2 his saturations allow and measure ambulatory saturations. Continue baseline bronchodilator medication
--- NOTE | 2017-05-10 15:21 | Patient Discharge Instructions ---
Discharge Instructions General Discharge Information Special Instructions: - Please follow up with your primary care physician within 1-2 week of discharge. Inform your primary care physician of this admission to [facility]. - Continue your current medications per discharge instructions. - Please watch for these problems: Fever, Chills, Nausea, Vomiting, Shortness of Breath, Productive Cough, Chest Pain/Discomfort, Abdominal Pain, Active Bleeding or Bloody urine/stool. Diet Continue normal diet: Yes Activity Full Activity/No Limits: Yes Acute Coronary Syndrome Inclusion Criteria At DC or during hospital stay patient has or had the following: ACS DIAGNOSIS No Discharge Core Measures Meds if any: Prescribed or Continued at Discharge Meds if any: NOT Prescribed or Continued at Discharge Congestive Heart Failure Inclusion Criteria At DC or during hospital stay patient has or had the following: CHF DIAGNOSIS No Discharge Core Measures Meds if any: Prescribed or Continued at Discharge Meds if any: NOT Prescribed or Continued at Discharge Cerebrovascular accident Inclusion Criteria At DC or during hospital stay patient has or had the following: CVA/TIA Diagnosis No Discharge Core Measures Meds if any: Prescribed or Continued at Discharge Meds if any: NOT Prescribed or Continued at Discharge Venous thromboembolism Inclusion Criteria VTE Diagnosis No VTE Type NONE VTE Confirmed by (Test) NONE Discharge Core Measures - Per Current guidelines, there needs to be overlap - treatment for the first 5 days of Warfarin therapy. - If discharged on Warfarin prior to 5 days of - overlap therapy, the patient will need to be - assessed for post discharge needs including - *Post discharge parental anticoagulation - *Warfarin and/or parental anticoagulation education - *Follow up date to check INR post discharge At least 5 days overlap therapy as Inpatient No Meds if any: Prescribed or Continued at Discharge Note: Overlap Therapy is Warfarin and Anticoagulant Meds if any: NOT Prescribed or Continued at Discharge
[2017-05-10 16:46] VITALS: BP 140/60
--- NOTE | 2017-05-10 17:24 | NUCLEAR MEDICINE REPORT ---
EXAMINATION: PULMONARY VENTILATION PERFUSION STUDY CLINICAL INFORMATION: Dyspnea. COPD. COMPARISON: The previous lung scan dated 01/16/2016 is available for comparison. Radiograph of the chest dated 05/10/2017, the same date as this lung scan is available for comparison. CT scan of the chest also dated 05/10/2017 is available for comparison. TECHNIQUE: Serial gamma scintillation camera images were obtained over the posterior chest during the single breath, equilibrium rebreathing and washout of 8.7 mCi Xe 133 gas. The patient then received 4.2 mCi Tc-99m MAA intravenously and a 6-view perfusion study was performed. FINDINGS: Ventilation images: On the single breath and equilibrium images there is markedly diminished and almost absent activity at the left lung base. During the washout phase there is moderate retention in both lungs, most severely at the right lung base but diffusely in the left lung including in the left lung base in the region of previously described decreased ventilation on the single breath and equilibrium images. Perfusion images: No segmental perfusion defects are present. There is a prominent band of decreased activity that extends from the lateral margin of the cardiac silhouette 2 the lateral surface of the left lower lobe. This does not follow a segmental pattern. No other perfusion defects are present. The cardiac silhouette and mediastinum appear dilated. Compared to the previous scan dated 01/16/2016, the perfusion and ventilation abnormalities R noted, although mild diffuse gas trapping predominantly in the left lung was present previously. The contemporaneous chest radiograph there is a hazy opacity at the left lung base that corresponds to the region of decreased ventilation and perfusion described above on these images. The contemporaneous CT scan also shows a region of atelectasis and groundglass opacity involving predominantly the left lower lobe, in a pattern that is well matched to the band of decreased perfusion described above on this lung scan. IMPRESSION: Low probability of pulmonary embolism. A prominent nonsegmental perfusion abnormality corresponds to ventilation and CT scan abnormalities present in the left lower lobe, and no additional perfusion abnormalities are present.
[2017-05-10 22:43] VITALS: BP 110/64
[2017-05-11 06:23] VITALS: BP 118/64
[2017-05-11 07:51] LABS: ABSOLUTE BASOPHIL COUNT 0 /CUMM (0.0-0.2); ABSOLUTE EOSINOPHIL COUNT 0 /CUMM (0.0-0.7); ABSOLUTE GRANULOCYTE CT 13.4 /CUMM (1.4-6.5); ABSOLUTE LYMPH COUNT 0.4 /CUMM (1.2-3.4); ABSOLUTE MONOCYTE COUNT 0.3 /CUMM (0.10-0.60); BASOPHIL % 0 % (0.0-2.0); EOSINOPHIL % 0 % (0-5); HEMATOCRIT 31.7 % (42-52); MEAN CORPUSCULAR HGB CONC 33.4 G/DL (33.0-37.0); MEAN CORPUSCULAR VOLUME 101.9 FL (80.0-94.0); MEAN PLATELET VOLUME 8.4 FL (7.4-10.4); PLATELET COUNT 134 /CUMM (130-400); RBC DISTRIBUTION WIDTH 15.9 % (11.5-14.5); RED BLOOD CELL CT 3.11 /CUMM (4.70-6.10); WHITE BLOOD CELL COUNT 14.1 /CUMM (4.8-10.8)
--- NOTE | 2017-05-11 08:11 | PN- Pulmonary ---
Subjective HPI/Critical Care Issues: Shortness of breath is markedly improved. Oxygen saturations are improved. Objective Current Medications: Current Medications Sig/Penny Start time Last Medication Dose Route Stop Time Status Admin Acetaminophen 650 MG Q6P PRN 05/10 0745 AC PO Albuterol Sulfate 3 ML EVERY 4 HRS/AWAKE 05/10 1200 AC 05/10 INH 2056 Albuterol Sulfate 2 PUF Q4 05/10 1000 CAN INH Aspirin 81 MG DAILY 05/10 1000 AC 05/10 PO 1227 Atorvastatin Calcium 40 MG 1700 05/10 1700 AC 05/10 PO 1641 Budesonide/ 2 PUF BID 05/10 1000 AC 05/10 Formoterol Fumarate INH 2044 Carvedilol 12.5 MG BID 05/10 1000 AC 05/10 PO 1227 Clopidogrel Bisulfate 75 MG DAILY 05/10 1000 AC 05/10 PO 1228 Furosemide 40 MG DAILY 05/10 1000 AC 05/10 PO 1228 Gabapentin 800 MG Q8 05/10 1400 AC 05/11 PO 0632 Heparin Sodium 5,000 UNIT Q8 05/10 1400 AC 05/11 (Porcine) SC 0635 Isosorbide 60 MG DAILY 05/10 1000 AC 05/10 Mononitrate PO 1227 Levothyroxine Sodium 0.1 MG DAILY AC 05/10 1000 AC 05/11 PO 0632 Losartan Potassium 25 MG DAILY 05/10 1000 AC 05/10 PO 1228 Methylprednisolone 40 MG Q8 05/10 2200 AC 05/11 IV 0633 Methylprednisolone 40 MG DAILY 05/10 1400 DC 05/10 IV 1330 Ranolazine 500 MG BID 05/10 1000 AC 05/10 PO 2047 Tamsulosin HCl 0.4 MG AT BEDTIME 05/10 2200 AC 05/10 PO 2045 Tiotropium [place] 1 PUF DAILY 05/10 1000 AC 05/10 INH 1232 Vital Signs & I&O Last 24 Hrs of Vitals and I&O: Vital Signs Date Time Temp Pulse Resp B/P B/P Pulse O2 O2 Flow FiO2 Mean Ox Delivery Rate 05/11 06 97.8 71 20 118/64 96 CPAP 05/11 0324 68 96 05/10 2242 98.1 71 18 110/64 91 Nasal 2.0L Cannula 05/10 2054 92 Nasal 2.0L Cannula 05/10 2046 71 110/64 05/10 2044 71 110/64 02/20 2045 71 110/64 05/10 1646 140/60 05/10 1600 Nasal 2.0L Cannula 05/10 1519 97.8 79 20 1140/64 95 Nasal 2.0L Cannula 05/10 1228 76 118/68 05/10 1228 76 118/68 05/10 1227 76 118/68 05/10 1227 76 118/68 05/10 1028 Nasal 2.0L Cannula 05/10 1027 95 Nasal 2.0L Cannula 05/10 0818 98.6 75 24 120/64 92 Nasal 2.0L Cannula 05/10 0816 92 Nasal 2.0L Cannula Intake & Output 05/11 1600 05/11 0800 05/11 0000 Intake Total 1220 Output Total 1600 Balance -380 Intake, IV 20 Intake, Oral 1200 Output, Urine 1600 Since saturation 2 L 96% exam of his chest shows clear there are no wheezes cardiac exam shows regular S1 and S2 without murmurs Impression/Plan Impression/Plan Impression/Plan: 76-year-old readmitted with bronchospasm which appears to have resolved. Recommendations: Taper FiO2. She Solu-Medrol begin oral prednisone. Consider discharge today
[2017-05-11] MEDS ORDERED: PREDNISONE10 M2 PO ×2 (08:25→10:36)
--- NOTE | 2017-05-11 08:27 | PN-Observation ---
KennFanny 05/11/17 0826: Observation Note Observation Note _ I have personally examined EMILY FRANCO JR. him disposition is uncertain at this time. Before a determination can be made, he requires continued observation for the following reasons [SOB]. Assessment/Plan Medical Assessment: Mr. Franco is a 76-year-old male with past medical history significant for COPD not on home oxygen, coronary artery disease status post CABG and stents, hypertension, ischemic cardiomyopathy status post AICD placement, chronic systolic heart failure with ejection fraction 20%, hypothyroidism, BPH, carotid artery disease, peripheral vascular disease, obstructive sleep apnea on CPAP, moderate aortic stenosis presented with worsening shortness of breath for 2 days. Patient was recently admitted to [facility] telemetry for acute hypoxic respiratory failure, CHF exacerbation, COPD exacerbation. Received IV Lasix, steroids, antibiotics. He completed steroid and antibiotic treatment. Echocardiogram was done which showed ejection fraction 20-25% with akinesis of inferior wall. He was discharged from the hospital on 05/06/2017. Vitals at the time of admission afebrile, heart rate 75, respiratory rate 24, blood pressure 120/60, saturating at 88 on 2 L oxygen. Labs WBC 10.4, hemoglobin 10 and hematocrit 32, platelets 142 BUN 45 and creatinine 1.5 D-dimer 1569 ProBNP 3210 Troponin 0.08 Amylase lipase, LFTs normal Chest x-ray showed hazy opacity left lung base atelectasis versus pneumonia EKG sinus rhythm, rate 66, left bundle branch block 1. Acute hypoxic respiratory failure/COPD exacerbation and pneumonia Patient was discharged from hospital after being treated for CHF exacerbation and COPD with prednisone and azithromycin on 2017. He reports worsening shortness of breath. He was found to be tachypneic, hypoxic requiring 2 L in the emergency room. He is afebrile with a normal WBC count. However given his worsening shortness of breath, chest x-ray findings suggestive of atelectasis versus pneumonia will place him under observation status in general medicine floor * Patient O2 satting well under 2LNC, however his O2 sat dropped below 88% while resting under room air, which qualifed him for home oxygen therapy. * Patient received IV methylprednisolone, and will switch to PO Prednisone 60mg per pulm reommendation, and taper on discharge * Total respiratory care * Nebulizer treatments * Follow blood culture, urine culture, sputum culture, no growth so far * Flu, urine Legionella and streptococcal antigen were negative * Appreciated pulmonology recommendations 2. Elevated D dimers Patient presented with acute worsening of shortness of breath. He was found to have elevated d-dimer 1569. * V-Q scan showed low possibility for PE. Patient had not been tachycardia over hospital stay as well. * Serial troponin and EKG had been negative of acute process * Echocardiogram was done on 05/04/2017 showed ejection fraction 20% with akinesis of inferior wall 3. Chronic kidney disease Creatinine 1.5. Baseline creatinine 1.7. Avoid nephrotoxins. 4. Stable proBNP 3210 continue home medications as below 5. Obstructive sleep apnea continue CPAP 6. Coronary artery disease status post CABG and stents continue aspirin, Plavix, atorvastatin 7. Ischemic cardiomyopathy, chronic systolic heart failure with ejection fraction 20% * Continue candesartan * Continue carvedilol 12.5 twice daily * Continue Lasix 40 mg daily * Continue isosorbide 60 daily * Continue ranolazine 500 twice daily 8. Hypothyroidism continue levothyroxine 100 g daily 9. BPH continue tamsulosin 0.4 daily Full code DVT prophylaxis subcutaneous heparin Heart healthy diet Pain pathway ordered Problem List: 1. COPD exacerbation 2. Hypoxia Subjective Follow-up For: COPD exacerbation Elevated D dimers hx of CKD, PATTI, CAD s/p CABG/stent, HFrEF, Ischemic cardiomyopathy, Hypothyroidism, BPH Subjective: No overnight event. Patient was on 2L oxygen breathing comfortably. [place] slightly better however would like to go home today. Review of Systems Constitutional: Reports: see HPI. Objective Last 24 Hrs of Vital Signs/I&O Vital Signs Date Time Temp Pulse Resp B/P B/P Pulse O2 O2 Flow FiO2 Mean Ox Delivery Rate 05/11 0831 95 Nasal 2.0L Cannula 05/11 0623 97.8 71 20 118/64 96 CPAP 05/11 0324 68 96 05/11 0000 CPAP 05/10 2243 98.1 71 18 110/64 91 Nasal 2.0L Cannula 05/10 2054 92 Nasal 2.0L Cannula 05/10 2046 71 110/64 05/10 2044 71 110/64 05/10 2044 71 110/64 05/10 1646 140/60 05/10 1600 Nasal 2.0L Cannula 05/10 1519 97.8 79 20 1140/64 95 Nasal 2.0L Cannula 05/10 1228 76 118/68 05/10 1228 76 118/68 05/10 1227 76 118/68 05/10 1227 76 118/68 Intake & Output 05/11 1600 05/11 0800 05/11 0000 Intake Total 120 1220 Output Total 500 1600 Balance -380 -380 Intake, IV 20 Intake, Oral 120 1200 Output, Urine 500 1600 Physical Exam General Appearance: Alert, Oriented X3, Cooperative, No Acute Distress Cardiovascular: Regular Rate Lungs: Normal Air Movement, bilateral wheezing Abdomen: Normal Bowel Sounds, No Tenderness Neurological: Normal Speech Extremities: Normal Pulses, No Tenderness/Swelling, +2 edema Zoraida Farrell 05/11/17 1121: Attending Addendum Attending Brief Note Patient seen/examined bedside. Patient c/o b/l wheezing and low probability for V/q scan, CT chest with no acute pathology. Patient is on taper steroids, abx, oxygen supplementation, bronchodilators. Check walling pulse oximetry before discharge and arrange home oxygen. Patient respiratroy status improved. Patient is medically stable for dsicharge. Case management aware.
[2017-05-11 08:50] LABS: GRANULOCYTE % 94.9 % (42.2-75.2)
[2017-05-11 13:36] VITALS: BP 96/56
== END 2017-05-11 16:15 ==
LOC: ERH 03:18 → ERHI 05:55 → 2NB 05:55 → ENRESERV 07:06 → ENTRNSPT 07:36 → EDTRNSPT 07:56 → EDTRNSPTSTS 07:56 → 2NB 08:09 → CMPTRNSPT 08:22 → 2NB 05-11 07:49 → ENPENDDIS 05-11 10:40 → ENTRNSPT 05-11 15:48 → 2NB 05-11 16:15 → CMPTRNSPT 05-11 16:32
PROVIDERS: Hospitalist; Pediatrics
DX: J44.1 Chronic obstructive pulmonary disease with (acute) exacerbation (principal); R09.02 Hypoxemia; I25.10 Atherosclerotic heart disease of native coronary artery without angina pectoris; Z95.1 Presence of aortocoronary bypass graft; Z95.5 Presence of coronary angioplasty implant and graft; I35.0 Nonrheumatic aortic (valve) stenosis; N18.9 Chronic kidney disease, unspecified; I25.5 Ischemic cardiomyopathy; Z95.810 Presence of automatic (implantable) cardiac defibrillator; Z85.118 Personal history of other malignant neoplasm of bronchus and lung; Z86.718 Personal history of other venous thrombosis and embolism; Z79.82 Long term (current) use of aspirin; I13.0 Hypertensive heart and chronic kidney disease with heart failure and stage 1 through stage 4 chronic kidney disease, or unspecified chronic kidney disease; I50.22 Chronic systolic (congestive) heart failure; E03.9 Hypothyroidism, unspecified; N40.0 Benign prostatic hyperplasia without lower urinary tract symptoms; I73.9 Peripheral vascular disease, unspecified; G47.33 Obstructive sleep apnea (adult) (pediatric); Z79.52 Long term (current) use of systemic steroids; Z79.01 Long term (current) use of anticoagulants
CPT/HCPCS: 1255; 1263; 1288; 1328; 1425; 1530; 1748; 36415; 36592; 71045; 78582; 81001; 82436; 87040; 87070; 87086; 87449; 87450; 87804; 87804-59; 93005; 93010; 96372; 96374; 96375; 96376; A9540; A9558; G0378; J0696; J1644; J2920; J2930; J3490

== ENCOUNTER 2017-07-17 10:30 | Inpatient (IN) | payer OTHER, MEDICARE ==
[~2017-07-17] VITALS: Ht 182.9 cm; Wt 98.9 kg
[2017-07-17 11:42] LABS: ABSOLUTE BASOPHIL COUNT 0 /CUMM (0.0-0.2); ABSOLUTE EOSINOPHIL COUNT 0 /CUMM (0.0-0.7); ABSOLUTE GRANULOCYTE CT 11.9 /CUMM (1.4-6.5); ABSOLUTE LYMPH COUNT 0.5 /CUMM (1.2-3.4); ABSOLUTE MONOCYTE COUNT 0.7 /CUMM (0.10-0.60); BASOPHIL % 0.2 % (0.0-2.0); EOSINOPHIL % 0 % (0-5); GRANULOCYTE % 90.6 % (42.2-75.2); HEMATOCRIT 44.7 % (42-52); MEAN CORPUSCULAR HGB 33.3 PG (27.0-31.0); MEAN CORPUSCULAR HGB CONC 33.3 G/DL (33.0-37.0); MEAN CORPUSCULAR VOLUME 99.7 FL (80.0-94.0); PLATELET COUNT 141 /CUMM (130-400); RBC DISTRIBUTION WIDTH 15.4 % (11.5-14.5); RED BLOOD CELL CT 4.48 /CUMM (4.70-6.10)
[2017-07-17 11:53] LABS: WHITE BLOOD CELL COUNT 13.1 /CUMM (4.8-10.8)
--- NOTE | 2017-07-17 11:54 | RADIOLOGY REPORT ---
EXAMINATION: XR CHEST CLINICAL INFORMATION: Cough and weakness. COMPARISON: CT chest and chest radiograph dated 05/10/2017. TECHNIQUE: Frontal and lateral views of the chest were obtained. FINDINGS: The heart, great vessels, pulmonary vasculature and mediastinum are stable. There has been a prior CABG procedure. There is stable moderate plate-like scar/subsegmental atelectasis at the left base. The right lung field appears relatively clear. No infiltrate, effusion or pneumothorax is seen. There is no acute osseous abnormality. A pacemaker/defibrillator device shows no lead fracture or change in lead tip positions. Abdominal aortic stent material is noted. IMPRESSION: 1. No active cardiopulmonary disease. There is no significant change. 2. There is stable moderate plate-like scar/subsegmental atelectasis at the left base.
--- NOTE | 2017-07-17 12:08 | ED GENERAL ADULT ---
History of Present Illness General Chief Complaint: General Adult Stated Complaint: GUMS SORE Source: patient, old records Exam Limitations: no limitations Vital Signs & Intake/Output Vital Signs & Intake/Output Vital Signs Date Time Temp Pulse Resp B/P B/P Pulse O2 O2 Flow FiO2 Mean Ox Delivery Rate 07/17 1439 98.0 70 18 111/58 97 Room Air Room Air 07/17 1248 98.0 72 20 115/56 98 Nasal 2.0L Cannula 07/17 1155 66 74/49 07/17 1049 69 22 93/58 96 Nasal 2.0L Cannula Allergies Coded Allergies: NO KNOWN ALLERGIES (NONE 05/10/17) Reconcile Medications Acetaminophen 325 MG CAPSULE 1 CAP PO PRN PAIN (Reported) Albuterol Sulfate (Proair Hfa) 90 MCG HFA.AER.AD 2 PUF INH Q4 COPD Aspirin (Aspirin*) 81 MG TAB.CHEW 1 TAB PO DAILY heart (Reported) Atorvastatin Calcium (Lipitor) 40 MG TABLET 1 TAB PO DAILY cholesterol ( Reported) Budesonide/Formoterol Fumarate (Symbicort 160-4.5 Mcg Inhaler) 160 MCG-4.5 MCG/ ACTUATION HFA.AER.AD 2 PUF INH BID COPD (Reported) Carvedilol 6.25 MG TABLET 1 TAB PO BID HEART/BP (Reported) Clopidogrel Bisulfate (Clopidogrel) 75 MG TABLET 1 TAB PO DAILY BLOOD THINNER (Reported) Furosemide (Lasix) 20 MG TABLET 1 TAB PO DAILY DIURETIC (Reported) Isosorbide Mononitrate (Isosorbide Mononitrate ER) 60 MG TAB.ER.24H 1 TAB PO DAILY (Reported) Levothyroxine Sodium 100 MCG TABLET 1 TAB PO DAILY THYROID (Reported) Nitroglycerin (Nitrostat) 0.4 MG TAB.SUBL 1 TAB SL AD PRN CHEST PAIN ( Reported) 1st sign of attack; may repeat every 5 minutes until relief; if pain persists after 3 tablets in 15 minutes, prompt medical att Omeprazole 40 MG CAPSULE.DR 1 CAP PO DAILY GI (Reported) Ranolazine (Ranexa) 500 MG TAB.ER.12H 1 TAB PO BID heart (Reported) Sertraline HCl 50 MG TABLET 1 TAB PO DAILY MENTAL HEALTH (Reported) Tamsulosin HCl (Flomax) 0.4 MG CAP.ER.24H 1 CAP PO QHS prostate Please take at bed time to avoid low blood pressure during the day. Tiotropium [place] (Spiriva) 18 MCG CAP.W.DEV 1 CAP INH DAILY COPD (Reported) Core Measure Meds Pre-Hospital aspirin Triage Note: REQUESTING EVALUATION FOR PAINFULL GUMS. SECONDARY TO THIS HE ALSO REPORTS DECREASE IN APPETTITE. THIS PROBLEM BEGAN 5 DAYS AGO. Triage Nurses Notes Reviewed? yes Onset: Last week Duration: day(s):, constant, continues in ED Timing: recent history Injury Environment: home Severity: severe Modifying Factors: Worsens With: eating. HPI: 5 days prior to admission patient complains of bumps on his gums with whitish yellow discoloration to his tongue or cheeks associated with anorexia change in taste of food and fluid with increasing weakness unable to stand and walk. He denies fever chills nausea vomiting diarrhea abdominal pain chest pain shortness breath headache dysuria bleeding. Past History Travel History Traveled to [place] past 21 day No Medical History Any Pertinent Medical History? see below for history Neurological: NONE EENT: NONE Cardiovascular: CARDIAC STENTS CABG CAROTID ARTERY BYPASS DEFIBRILLATOR Respiratory: COPD Gastrointestinal: NONE Hepatic: NONE Renal: NONE Musculoskeletal: NONE Psychiatric: NONE Endocrine: hypothyroidism Blood Disorders: DVT Cancer(s): NONE SHERIFF SERGEANT/Reproductive: NONE History of MRSA: No History of VRE: No History of CDIFF: No Influenza Vaccine: 02/02/17 Surgical History Surgical History: CABG, CAROTID ARTECTOMY nerve thermoablation to reduce back pain Psychosocial History Who do you live with Spouse Services at Home None What is your primary language [place] Tobacco Use: Quit >30 days ago Family History Family History, If Any: Relation not specified for: *No pertinent family history Hx Contributory? No Review of Systems Review of Systems Constitutional: Reports: see HPI, weakness. EENTM: Reports: see HPI, mouth pain. Respiratory: Reports: no symptoms. Cardiovascular: Reports: no symptoms. GI: Reports: no symptoms. Genitourinary: Reports: no symptoms. Musculoskeletal: Reports: no symptoms. Skin: Reports: no symptoms. Neurological/Psychological: Reports: see HPI, weakness. Hematologic/Endocrine: Reports: no symptoms. Immunologic/Allergic: Reports: no symptoms. All Other Systems: Reviewed and Negative Physical Exam Physical Exam General Appearance: well developed/nourished, alert, awake, anxious, moderate distress, obese Head: atraumatic, normal appearance Eyes: Bilateral: normal appearance, PERRL, EOMI. Ears, Nose, Throat: hearing grossly normal, pharyngeal erythema, dry mucous membranes with curd-like yellow discharge on tongue gums cheeks, poor dentition Neck: normal inspection, supple, full range of motion, no midline tenderness Respiratory: chest non-tender, no respiratory distress, quiet respiration, decreased breath sounds Cardiovascular: regular rate/rhythm, normal peripheral pulses, norml femoral pulses equa Peripheral Pulses: 4+ carotid (R), 4+ carotid (L) Gastrointestinal: normal bowel sounds, soft, non-tender, no organomegaly Back: normal inspection, normal range of motion, no vertebral tenderness Extremities: normal inspection, normal capillary refill, normal range of motion, no edema Neurologic/Psych: no motor/sensory deficits, awake, alert, oriented x 3, normal mood/affect, fur coat sewer II-XII nml as tested Reflexes: 2+: bicep (R), bicep (L). Skin: intact, normal color, warm/dry Lymphatic: no anterior cervical flakita Core Measures ACS in differential dx? No CVA/TIA Diagnosis: No Sepsis Present: No Sepsis Focused Exam Completed? No Progress Differential Diagnoses I considered the following diagnoses in my evaluation of the patient: Oral thrush herpes labialis dehydration Plan of Care: Orders Procedure Date/time Status CBC WITHOUT DIFFERENTIAL 07/18 0600 Active BASIC ELECTROLYTES PLUS BUN&CR 07/18 0600 Active Consistent Carbohydrate 2 07/17 D Active FingerStick- Glucose 07/17 1426 Active URINALYSIS 07/17 1315 Complete Patient Data 07/17 1310 Active OXYGEN SETUP (GEN) 07/17 1227 Active Saline Lock 07/17 1227 Active Admit to inpatient 07/17 1227 Active Vital Signs 07/17 1227 Active Activity/Ambulation 07/17 1227 Active Code Status 07/17 1227 Active Intake & Output 07/17 1121 Active MISTAKE 07/17 1111 Active TROPONIN LEVEL 07/17 1111 Complete COMPREHENSIVE METABOLIC PANEL 07/17 1111 Complete CBC WITHOUT DIFFERENTIAL 07/17 1111 Complete EKG 07/17 1111 Active Laboratory Tests 07/17/ 1427: Urine Color YEL, Urine Clarity CLEAR, Urine pH 6.0, Ur Specific [place] 1.015, Urine Protein NEG, Urine Ketones NEG, Urine Nitrite NEG, Urine Bilirubin NEG, Urine Urobilinogen 0.2, Ur Leukocyte Esterase NEG, Ur Microscopic EXAM NOT REQUIRED, Urine Hemoglobin NEG, Urine Glucose >=1000 H 07/17/17 1135: Anion Gap 12, Estimated GFR 35 L, BUN/Creatinine Ratio 22.1, Glucose 617 *H, Calcium 9.2, Total Bilirubin 1.3, AST 14 L, ALT 25, Alkaline Phosphatase 127 H , Troponin I 0.06, Total Protein 6.2 L, Albumin 3.8, Globulin 2.4, Albumin/ Globulin Ratio 1.6, CBC w Diff NO MAN DIFF REQ, RBC 4.48 L, MCV 99.7 H, MCH 33.3 H, MCHC 33.3, RDW 15.4 H, MPV 9.0, Gran % 90.6 H, Lymphocytes % 3.6 L, Monocytes % 5.6, Eosinophils % 0, Basophils % 0.2, Absolute Granulocytes 11.9 H , Absolute Lymphocytes 0.5 L, Absolute Monocytes 0.7 H, Absolute Eosinophils 0 , Absolute Basophils 0 Initial ED EKG: normal axis, normal intervals, normal p-waves, normal QRS complex, normal sinus rhythm, nonspecific ST T wave chg Prior EKG: unchanged Rhythm Strip: normal sinus rhythm Departure Departure Disposition: STILL A PATIENT Condition: Stable Clinical Impression Primary Impression: Hyperglycemia without ketosis Secondary Impressions: Acute renal failure, Dehydration syndrome, Hyperkalemia, Leukocytosis, Oral thrush Referrals: Sayra Tang MD (PCP/Family) Departure Forms: Customer Survey General Discharge Information Admission Note Spoke With: Wale Almeida MD Documentation of Exam: Documentation of any treatments & extenuating circumstances including Concerns Regarding Discharge (functional status, medication knowledge or non-compliance, living conditions, etc.) that warrant an admission rather than observation: Serial lab exam IV hydration treatment of oral thrush diabetic education endocrinology evaluation medication adjustment continuing care discharge planning Critical Care Note Critical Care Note Critical Care Time: 30-74 min (45)
[2017-07-17] MEDS ORDERED: LASIX20 M1 PO (12:30)
[2017-07-17] MEDS ORDERED: CARVEDILOL6.25 M1 PO (12:33)
[2017-07-17] MEDS ORDERED: OMEPRAZOLE40 M1 PO (12:34)
[2017-07-17] MEDS ORDERED: SERTRALINE HCL50 MG PO (12:35)
--- NOTE | 2017-07-17 14:56 | History & Physical ---
CecilyVíctor roman 07/17/17 1455: General Information and HPI MD Statement: I have seen and personally examined JOANLUISEMILY Alessandra HUSAIN and documented this H&P. The patient is a 76 year old M who presented with a patient stated chief complaint of []. 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 Information was obtained from patient himself and his threw the phone. Patient reports that he cannot feel any tastes of any food for 5 days and he only drinks water sometimes he has pain in his mouth and throat after eating solid foods. However he is pain-free at the moment. He also reported that he has been feeling fatigued with low appetite for 1 or 2 weeks and according to the he lost 30 pounds. On June 29 patient was put on daily 50 mg prednisone by his oncologist and also is using a steroid inhaler. Apparently patient was not washing his mouth every time that he usedthe steroid inhaler. Patient denied any chest pain, nausea, vomiting, abdominal pain, shortness of breath, palpitations upon examination. Vital signs in ED was notable for low blood pressure 74/49, heart rate 66, no fever 96% on 2 L Labs were notable for WBC 13.1, MCV 99, sodium 129, potassium 4.6, glucose 617, creatinine 1.9 baseline is 1.6, CL 88 , UA showed glucose more than 1000 Patient received 1-1/2 L of normal saline in the ED, 10 units of insulin Novolin , 1 dose of clotrimazole 10 mg Blood pressure increased to 111/58 after hydration CXR 1. No active cardiopulmonary disease. There is no significant change. 2. There is stable moderate plate-like scar/subsegmental atelectasis at the left base. Allergies/Medications Allergies: Coded Allergies: NO KNOWN ALLERGIES (NONE 05/10/17) Past History Travel History Traveled to [place] past 21 day No Medical History Neurological: NONE EENT: NONE Cardiovascular: CARDIAC STENTS CABG CAROTID ARTERY BYPASS DEFIBRILLATOR Respiratory: COPD Gastrointestinal: NONE Hepatic: NONE Renal: NONE Musculoskeletal: NONE Psychiatric: NONE Endocrine: hypothyroidism Blood Disorders: DVT Cancer(s): NONE ADDICTION SOCIAL WORKER/Reproductive: NONE History of MRSA: No History of VRE: No History of CDIFF: No Influenza Vaccine: 02/02/17 Surgical History Surgical History: CABG, CAROTID ARTECTOMY nerve thermoablation to reduce back pain Past Family/Social History Family History Relations & Conditions if any Relation not specified for: *No pertinent family history Psychosocial History Who Do You Live With? spouse Services at Home: None Primary Language: Tanzanian Living Will? no Functional Ability ADLs Independent: dressing, eating, toileting, bathing. Ambulation: independent Review of Systems Review of Systems Constitutional: Reports: see HPI. Exam & Diagnostic Data Last 24 Hrs of Vital Signs/I&O Vital Signs Date Time Temp Pulse Resp B/P B/P Pulse O2 O2 Flow FiO2 Mean Ox Delivery Rate 07/17 2006 76 100/60 07/17 2005 76 100/60 07/17 2005 76 100/60 07/17 1600 Nasal 3.0L Cannula 07/17 1554 97 Nasal 3.0L Cannula 07/17 1439 98.0 70 18 111/58 97 Room Air Room Air 07/17 1248 98.0 72 20 115/56 98 Nasal 2.0L Cannula 07/17 1155 66 74/49 07/17 1049 69 22 93/58 96 Nasal 2.0L Cannula Intake & Output 07/17 1600 07/17 0800 07/17 0000 Intake Total Output Total Balance Patient 99.79 kg Weight Weight Reported by Patient Measurement Method Physical Exam General Appearance Alert, Oriented X3, Cooperative HEENT oral thrush with erythema Cardiovascular Regular Rate, Normal S1, Normal S2 Lungs decreased breath sound and wheezin on the right side of lung Abdomen Normal Bowel Sounds, Soft, No Tenderness Extremities No Clubbing, No Cyanosis, No Edema Assessment/Plan Assessment: Mr Almonte is a 76 [id number] with a PMH significant for 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 and on prednisone therapy, COPD on 2 L at home, CAD s/p CABG and PCI with stend placement, ischemic cardiomyopathy with EF of 20 -25% status post AICD, CKD, hypothyroidism, aortic stenosis, peripheral arterial disease, PATTI on CPAP who came to emergency room with chief complaint of sore throat eating food and dysgeusia/ageusia Vital signs in ED was notable for low blood pressure 74/49, heart rate 66, no fever 96% on 2 L Labs were notable for WBC 13.1, MCV 99, sodium 129, potassium 4.6, glucose 617, creatinine 1.9 baseline is 1.6, CL 88 , UA showed glucose more than 1000 Patient received 1-1/2 L of normal saline in the ED, 10 units of insulin Novolin , 1 dose of clotrimazole 10 mg Blood pressure increased to 111/58 after hydration CXR 1. No active cardiopulmonary disease. There is no significant change. 2. There is stable moderate plate-like scar/subsegmental atelectasis at the left base. Assessment hx of CHF with low EF of 20-25% with AICD History of CAD on dual antiplatelet therapy History of a small cell cancer status post radiation now on prednisone therapy History of COPD on 2 L Hyperglycemia Dehydration and poor oral intake with hypotension Oral thrush COPD Hypothyroidism Plan Admit to general floor No more IV hydration for now due to low EF The patient on daily and bedtime sliding scale insulin, Accu-Cheks, diabetic diet, check hemoglobin A1c Hold Lasix for now Continue Coreg and Imdur and hold if BP is less than 100 Continue inhalers and TRC nebs Continue p.o. prednisone 50 mg p.o. daily Continue levothyroxine Endo consult for a.m. Nystatin 4 times a day orally swish and swallow Continue aspirin, Plavix, Ranexa, tamsulosin, Lipitor Diabetic diet, full code, DVT prophylaxis is subcu heparin and mechanical, Tylenol for pain, As Ranked By This Provider Problem List: 1. Weakness Core Measures/Misc (12/05) Acute Coronary Syndrome ACS Diagnosis: No Congestive Heart Failure Congestive Heart Failure Diagnosis No Last Known EF % 25 Cerebrovascular Accident CVA/TIA Diagnosis: No VTE (View Protocol) VTE Risk Factors Age>40 No Mechanical VTE Prophylaxis d/t N/A MechProphylax Ordered No VTE Pharm Prophylaxis d/t NA PharmProphylax ordered Sepsis (View protocol) Sepsis Present: No Wale Almeida MD 07/17/17 1942: General Information and HPI Allergies/Medications Home Med list Acetaminophen 325 MG CAPSULE 1 CAP PO PRN PAIN (Reported) Albuterol Sulfate (Proair Hfa) 90 MCG HFA.AER.AD 2 PUF INH Q4 COPD Aspirin (Aspirin*) 81 MG TAB.CHEW 1 TAB PO DAILY heart (Reported) Atorvastatin Calcium (Lipitor) 40 MG TABLET 1 TAB PO DAILY cholesterol ( Reported) Budesonide/Formoterol Fumarate (Symbicort 160-4.5 Mcg Inhaler) 160 MCG-4.5 MCG/ ACTUATION HFA.AER.AD 2 PUF INH BID COPD (Reported) Carvedilol 6.25 MG TABLET 1 TAB PO BID HEART/BP (Reported) Clopidogrel Bisulfate (Clopidogrel) 75 MG TABLET 1 TAB PO DAILY BLOOD THINNER (Reported) Furosemide (Lasix) 20 MG TABLET 10 MG PO DAILY HEART HEALTH . Insulin Aspart, Recombinant (Novolog Flexpen) 100 UNIT/ML INSULN.PEN 0 SC SEE ADMIN CRITERIA DM PLEASE check your blood sugar 3 times daily before meals and at bedtime and . FOLLOW 80 - 150 MG/DL 9 UNITS 151- 200 MG/DL 11 UNITS 201- 250 MG/DL 13 UNITS 251- 300 MG/DL 15 UNITS 301- 350 MG/DL 17 UNITS 351 - 400MG/DL 19 UNITS >400 MG/DL 20 UNITS AND CALL YOUR DR. Insulin Detemir (Levemir Flextouch) 100 UNIT/ML (3 ML) INSULN.PEN 25 UNITS SC DAILY AC DM Levothyroxine Sodium 100 MCG TABLET 1 TAB PO DAILY THYROID (Reported) Nitroglycerin (Nitrostat) 0.4 MG TAB.SUBL 1 TAB SL AD PRN CHEST PAIN ( Reported) 1st sign of attack; may repeat every 5 minutes until relief; if pain persists after 3 tablets in 15 minutes, prompt medical att Omeprazole 40 MG CAPSULE. 1 CAP PO DAILY GI (Reported) Prednisone 10 MG TABLET 0 PO SEE ADMIN CRITERIA lung health please take:. 3 pills for 3 days 2 pills for 3 days 1 pill for 3 days and then disscuss with your oncologist and PCP regarding stopping Ranolazine (Ranexa) 500 MG TAB.ER.12H 1 TAB PO BID heart (Reported) Sertraline HCl 50 MG TABLET 1 TAB PO DAILY MENTAL HEALTH (Reported) Tamsulosin HCl (Flomax) 0.4 MG CAP.ER.24H 1 CAP PO QHS prostate Please take at bed time to avoid low blood pressure during the day. Tiotropium [place] (Spiriva) 18 MCG CAP.W.DEV 1 CAP INH DAILY COPD (Reported) Attending MD Review Statement Attending Statement Attending MD Statement: examined this patient, discuss w/resident/PA/HIGH VALUE ASSOCIATE, agreed w/resident/PA/HIGH VALUE ASSOCIATE, reviewed EMR data (avail), discussed with nursing, amended to note Attending Assessment/Plan: 76-year-old male with history of oxygen dependent COPD, coronary artery disease status post CABG and stent placement, hypertension, ischemic adenopathy status post AICD placement, EF of 20%, hypothyroidism, carotid artery disease, peripheral vascular disease, obstructive sleep apnea on CPAP therapy and moderate aortic stenosis. Medical history is also significant for lung cancer status post radiation therapy. He presents to the emergency room today with complaints of abnormal taste in his mouth. On evaluation in the emergency room he was found to have Significant oral thrush. Patient is on an inhaled corticosteroid. He admits to no recent appropriately of these and medication. Also noted in the emergency room was blood glucose levels of over 600. Apparently patient has been taking prednisone 50 mg daily. He reports that this was prescribed by his oncologist. He is unclear why he is taking his medication. Reports stopping the medication recently although this history is not entirely clear as is of the impression that patient is still taking this medication. In the emergency room he was noted to have orthostatic blood pressure changes. He was started on IV hydration and referred to the medical service for further evaluation. IV hydration was told by the medical team because patient has a history of systolic dysfunction. General appearance: Well-developed and not in any acute distress. HEENT: Anicteric, no pallor, pupils equal and reactive. Significant oral thrush. Neck: Supple with no jugular venous distention. Heart: S1-S2 regular with no audible murmur. Lungs: Diminished breath sounds left lung field. No added sounds. Abdomen: Nondistended with normal bowel sounds. Soft, nontender with no palpable masses. Extremities: No pedal edema. No cyanosis. Skin: Intact Problems: 1. Hyperglycemia; likely steroid-induced. 2. Orthostatic hypotension 3. Oxygen dependent COPD 4. Oral thrush 5. Coronary artery disease 6. Leukocytosis 7. Hyponatremia likely secondary to hyperglycemia 8. Hyperkalemia. 9. Chronic kidney disease stage III. Plan: -Admit to the inpatient medical service. -Glucose level has improved from 600 down to [address] patient on low-dose sliding scale coverage. -Orthostatic hypotension is likely due to volume depletion. Also within the differential is adrenal insufficiency given his high-dose steroid use. -Hold off further hydration due to his cardiomyopathy. Repeat orthostatic vitals. -Continue history of therapy. Follow-up with the prescribing doctor regarding indication and duration of therapy. -Nystatin for his oral thrush. -Continue bronchodilators. Continue oxygen supplementation. -Continue cardiac regimen including Coreg and isosorbide with holding parameters. Sodium level-should improve following correction of glucose levels. Potassium level should improve following the administration of insulin. Repeat serum chemistry level. -Creatinine level is elevated above baseline. Likely due to volume depletion from his hyperglycemia and poor oral intake. Repeat serum chemistry to monitor for improvement.
[2017-07-17] MEDS ORDERED: PREDNISONE10 M2 PO (16:11)
--- NOTE | 2017-07-17 17:09 | Admission Certification ---
Admission Certification Certification Statement - As attending physician, I certify that at the time of - admission, based on clinical presentation, severity of - symptoms, need for further diagnostic testing and - therapeutic interventions, and risk of adverse outcomes - without in-hospital treatment, in my clinical assessment, - this patient requires an acute hospital stay for a minimum - of two nights or longer. I have also considered psychsocial - factors such as support system, advanced age, financial - issues, cognitive issues, and failed out-patient treatments, - past re-admission history, safety of patient, and lack of - compliance as applicable. Specific rationale supporting this admission is: Patient is being hospitalized for management of his markedly elevated glucose level.
[2017-07-17 21:49] VITALS: BP 100/60
[2017-07-18 05:59] VITALS: BP 120/64
--- NOTE | 2017-07-18 07:09 | PN- Housestaff ---
Estuardo Mariano MD,[facility] [address] 07/18/17 0709: Subjective Follow-up For: Oral thrush Diabetes mellitus Dehydration Subjective: Patient visited today, was lying in bed in no acute distress, was alert and oriented. Reported improved oral lesions. No fever or chills, no shortness of breathing, no chest pain, no other events. -DM considering Hb a1c - started on levemir and adjusted sliding scale - orthostatic positive Review of Systems Constitutional: Reports: see HPI. Objective Last 24 Hrs of Vital Signs/I&O Vital Signs Date Time Temp Pulse Resp B/P B/P Pulse O2 O2 Flow FiO2 Mean Ox Delivery Rate 07/18 1350 98.7 60 20 112/60 95 Room Air 07/18 1115 81 122/70 07/18 1056 94 Nasal 2.0L Cannula 07/18 0843 97.8 73 120/64 07/18 0842 97.8 73 20 120/64 07/18 0842 97.8 73 20 120/64 07/18 0610 73 94 07/18 0559 97.8 79 20 120/64 95 Room Air 07/18 0302 96 07/18 0030 79 97 07/18 0000 97 CPAP 07/17 2330 85 97 07/17 2201 Nasal 3.0L Cannula 07/17 2149 97.7 74 20 100/60 97 07/17 2006 76 100/60 07/17 2006 76 100/60 07/17 2006 76 100/60 Intake & Output 07/18 1600 07/18 0800 07/18 0000 Intake Total 700 Output Total 600 600 800 Balance -600 -600 -100 Intake, Oral 700 Number 1 Bowel Movements Output, Urine 600 600 800 Physical Exam General Appearance: Alert, Oriented X3, Cooperative, No Acute Distress Skin Temp/Moisture Exam: Warm/Dry Sepsis Skin Exam (color): Normal for Ethnicity HEENT: Atraumatic, EOMI, improved oral lesions Cardiovascular: Normal S1, Normal S2 Lungs: Normal Air Movement Abdomen: Soft, No Tenderness Neurological: Normal Speech, Strength at 5/5 X4 Ext Current Medications: Current Medications Sig/Penny Start time Last Medication Dose Route Stop Time Status Admin Acetaminophen 650 MG Q6P PRN 07/17 1530 AC PO Albuterol Sulfate 3 ML BID 07/18 1056 AC 07/18 INH 1057 Aspirin 81 MG DAILY 07/18 0900 AC 07/18 PO 0843 Atorvastatin Calcium 40 MG DAILY@1700 07/17 1700 AC 07/17 PO 1744 Budesonide/ 2 PUF BID 07/17 2100 AC 07/18 Formoterol Fumarate INH 0840 Carvedilol 6.25 MG BID 07/17 2100 AC 07/18 PO 0842 Clopidogrel Bisulfate 75 MG DAILY 07/18 0900 AC 07/18 PO 0842 Heparin Sodium 5,000 UNIT Q8 07/18 0600 AC 07/18 (Porcine) SC 1406 Insulin Aspart 0 TIDAC 07/18 0800 AC 07/18 SC 1219 Insulin Aspart 0 AT BEDTIME 07/17 2100 AC 07/17 SC 2004 Insulin Detemir 15 UNITS DAILY 07/18 0900 AC 07/18 SC 0904 Isosorbide 60 MG DAILY 07/18 0900 AC 07/18 Mononitrate PO 0843 Levothyroxine Sodium 0.1 MG DAILY AC 07/18 0700 AC 07/18 PO 0652 Lidocaine 15 ML BID 07/18 0900 AC 07/18 PO 0913 Nitroglycerin 0.4 MG EVERY 5 MIN PRN 07/17 1615 AC Nystatin 5 ML 4 TIMES/DAY 07/17 1458 AC 07/18 PO 1218 Omeprazole 40 MG DAILY AC 07/18 0700 AC 07/18 PO 0652 Patient Medication 1 ED ONE ONE 07/18 1430 [facility] 07/18 1431 Prednisone 50 MG DAILY 07/17 1700 AC 07/18 PO 0843 Ranolazine 500 MG BID 07/17 2100 AC 07/18 PO 0842 Sertraline HCl 50 MG DAILY 07/18 0900 AC 07/18 PO 0843 Tamsulosin HCl 0.4 MG AT BEDTIME 07/17 2100 AC PO Tiotropium [place] 1 PUF DAILY 07/17 1607 AC 07/17 INH 1744 Last 24 Hrs of Lab/Abimael Results Last 24 Hrs of Labs/Mics: Laboratory Tests 07/18/17 0748: Anion Gap 9, Estimated GFR 50 L, BUN/Creatinine Ratio 25.0, CBC w Diff NO MAN DIFF REQ, RBC 3.93 L, MCV 98.8 H, MCH 34.3 H, MCHC 34.7, RDW 16.1 H, MPV 9.4 , Gran % 93.3 H, Lymphocytes % 3.1 L, Monocytes % 3.6, Eosinophils % 0, Basophils % 0, Absolute Granulocytes 8.6 H, Absolute Lymphocytes 0.3 L, Absolute Monocytes 0.3, Absolute Eosinophils 0, Absolute Basophils 0 Assessment/Plan Assessment: Mr Alomnte is a 76 [id number]-[id number] with a PMH significant for 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 and on prednisone therapy, COPD on 2 L at home, CAD s/p CABG and PCI with stend placement, ischemic cardiomyopathy with EF of 20 -25% status post AICD, CKD, hypothyroidism, aortic stenosis, peripheral arterial disease, PATTI on CPAP who came to emergency room with chief complaint of sore throat eating food and dysgeusia/ageusia Vital signs in ED was notable for low blood pressure 74/49, heart rate 66, no fever 96% on 2 L Labs were notable for WBC 13.1, MCV 99, sodium 129, potassium 4.6, glucose 617, creatinine 1.9 baseline is 1.6, CL 88 , UA showed glucose more than 1000 Patient received 1-1/2 L of normal saline in the ED, 10 units of insulin Novolin , 1 dose of clotrimazole 10 mg Blood pressure increased to 111/58 after hydration CXR 1. No active cardiopulmonary disease. There is no significant change. 2. There is stable moderate plate-like scar/subsegmental atelectasis at the left base. Assessment hx of CHF with low EF of 20-25% with AICD History of CAD on dual antiplatelet therapy History of a small cell cancer status post radiation now on prednisone therapy History of COPD on 2 L Hyperglycemia, DM Dehydration and poor oral intake with hypotension Oral thrush - improved COPD Hypothyroidism Plan Contiue admission to general floor - No more IV hydration for now due to low EF - Hb a1c 12 - levemir and sliding scale - follow endo consult - Nystatin 4 times a day orally swish and swallow - currently significant improvement - home medications: Hold Lasix for now Continue Coreg and Imdur and hold if BP is less than 100 Continue inhalers and TRC nebs Continue p.o. prednisone 50 mg p.o. daily Continue levothyroxine Continue aspirin, Plavix, Ranexa, tamsulosin, Lipitor Diabetic diet, full code, DVT prophylaxis is subcu heparin and mechanical, Tylenol for pain, Problem List: 1. Oral thrush 2. Dehydration syndrome 3. Hyperglycemia without ketosis Pain Ratin Pain Location: Continue current medication Pain Goal: Pain 4 or less Pain Plan: continue current plan Tomorrow's Labs & Rationales: CBC BEP Juan Pablo LUND,Nicholasdhara 07/18/17 1154: Attending MD Review Statement Attending Statement Attending MD Statement: examined this patient, discuss w/resident/PA/FELT DYEING MACHINE TENDER, agreed w/resident/PA/FELT DYEING MACHINE TENDER, reviewed EMR data (avail), discussed with nursing, discussed with case mgmt, amended to note Attending Assessment/Plan: Patient seen and examined. Resting comfortably and not in any acute distress. No issues overnight reported by nursing staff. He continues to report poor taste sensation but denies any nausea or vomiting. He is tolerating his meals. On examination oral thrush appears to be improving. Blood glucose levels have improved although still elevated none in the 300s. His hemoglobin A1c is markedly elevated at 12.5 does confirm the diagnosis of diabetes. Endocrinology consultation appreciated. Patient is willing to be discharged home on insulin therapy. Patient continues to have orthostatic blood pressure changes today. IV hydration was limited due to his chronic systolic heart failure. Recommendations: -Begin insulin therapy as recommended by the endocrinology service. -Monitor patient's response overnight. -Generation Manager consultation for diabetes education. Nursing staff to instruct patient on how to check fingersticks and administer insulin. -Check random cortisol level to rule out adrenal insufficiency as etiology of his orthostatic blood pressure changes. We do anticipate levels to be decreased due to the exogenous steroid use. Patient may also have autonomic dysfunction from diabetes.
--- NOTE | 2017-07-18 08:40 | Cons- Endocrinology ---
General Information and HPI Consulting Request Date of Consult: 07/18/17 Requested By: medical team Reason for Consult: management of steroid induced hyperglycemia/diabetes type 2 Source of Information: patient, old records Exam Limitations: no limitations History of Present Illness: 76 [id number] with a PMH significant for small cell lung carcinoma status post radiation and on prednisone therapy ( prednisone 50 mg daily since 2017), COPD on 2 L at home, CAD s/p CABG and PCI with stend placement, ischemic cardiomyopathy with EF of 20-25% status post AICD, CKD, hypothyroidism, aortic stenosis, peripheral arterial disease, PATTI on CPAP presented to emergency room with chief complaint of sore throat eating food and dysgeusia. Blood work showed glucose 617, Cr 1.9, K 5.6, bicarb 29 and sodium 129. HbA1c is pending. His mother had diabetes. Allergies/Medications Allergies: Coded Allergies: NO KNOWN ALLERGIES (NONE 05/10/17) Home Med List: Acetaminophen 325 MG CAPSULE 1 CAP PO PRN PAIN (Reported) Albuterol Sulfate (Proair Hfa) 90 MCG HFA.AER.AD 2 PUF INH Q4 COPD Aspirin (Aspirin*) 81 MG TAB.CHEW 1 TAB PO DAILY heart (Reported) Atorvastatin Calcium (Lipitor) 40 MG TABLET 1 TAB PO DAILY cholesterol ( Reported) Budesonide/Formoterol Fumarate (Symbicort 160-4.5 Mcg Inhaler) 160 MCG-4.5 MCG/ ACTUATION HFA.AER.AD 2 PUF INH BID COPD (Reported) Carvedilol 6.25 MG TABLET 1 TAB PO BID HEART/BP (Reported) Clopidogrel Bisulfate (Clopidogrel) 75 MG TABLET 1 TAB PO DAILY BLOOD THINNER (Reported) Furosemide (Lasix) 20 MG TABLET 1 TAB PO DAILY DIURETIC (Reported) Isosorbide Mononitrate (Isosorbide Mononitrate ER) 60 MG TAB.ER.24H 1 TAB PO DAILY (Reported) Levothyroxine Sodium 100 MCG TABLET 1 TAB PO DAILY THYROID (Reported) Nitroglycerin (Nitrostat) 0.4 MG TAB.SUBL 1 TAB SL AD PRN CHEST PAIN ( Reported) 1st sign of attack; may repeat every 5 minutes until relief; if pain persists after 3 tablets in 15 minutes, prompt medical att Omeprazole 40 MG CAPSULE.DR 1 CAP PO DAILY GI (Reported) Prednisone 10 MG TABLET 50 MG PO DAILY LUNG (Reported) Ranolazine (Ranexa) 500 MG TAB.ER.12H 1 TAB PO BID heart (Reported) Sertraline HCl 50 MG TABLET 1 TAB PO DAILY MENTAL HEALTH (Reported) Tamsulosin HCl (Flomax) 0.4 MG CAP.ER.24H 1 CAP PO QHS prostate Please take at bed time to avoid low blood pressure during the day. Tiotropium [place] (Spiriva) 18 MCG CAP.W.DEV 1 CAP INH DAILY COPD (Reported) Review of Systems Review of Systems Constitutional: Reports: malaise, unexplained weight loss. Cardiovascular: Denies: chest pain. Respiratory: Reports: short of breath (on oxygen). GI: Denies: abdominal pain. Genitourinary: Reports: frequency. Hematologic/Endocrine: Reports: polyuria, polydipsia. 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 spouse Services at Home: None Primary Language: Citizen Of The [place] Smoking Status: Current Everyday Smoker Living Will? no Functional Ability ADLs Independent: dressing, eating, toileting, bathing. Ambulation: independent Exam & Diagnostic Data Last 24 Hrs of Vital Signs/I&O Vital Signs Date Time Temp Pulse Resp B/P B/P Pulse O2 O2 Flow FiO2 Mean Ox Delivery Rate 07/18 0843 97.8 73 120/64 07/18 0842 97.8 73 20 120/64 07/18 0842 97.8 73 20 120/64 07/18 0610 73 94 07/18 0559 97.8 79 20 95 Room Air 07/18 0302 96 07/18 0030 79 97 07/18 0000 97 CPAP 07/17 2330 85 97 07/17 2201 Nasal 3.0L Cannula 07/17 2149 97.7 74 20 100/60 97 07/17 2006 76 100/60 07/17 2005 76 100/60 07/17 2006 76 100/60 07/17 1600 Nasal 3.0L Cannula 07/17 1554 97 Nasal 3.0L Cannula 07/17 1439 98.0 70 18 111/58 97 Room Air Room Air 07/17 1248 98.0 72 20 115/56 98 Nasal 2.0L Cannula 07/17 1155 66 74/49 07/17 1049 69 22 93/58 96 Nasal 2.0L Cannula Intake & Output 07/18 1600 07/18 0800 07/18 0000 Intake Total 700 Output Total 600 800 Balance -600 -100 Intake, Oral 700 Number 1 Bowel Movements Output, Urine 600 800 Physical Exam General Appearance: no apparent distress Neck: normal inspection Respiratory: decreased breath sounds Cardiovascular: regular rate/rhythm Gastrointestinal: soft, non-tender, distention Extremities: no edema Labs/Abimael Results: Laboratory Tests 07/18 07/17 07/17 0748 1630 1630 Chemistry Sodium (137 - 145 mmol/L) Pending 131 L Potassium (3.5 - 5.1 mmol/L) Pending 4.8 Chloride (98 - 107 mmol/L) Pending 96 L Carbon Dioxide (22 - 30 mmol/L) Pending 27 Anion Gap (5 - 16) Pending 8 BUN (9 - 20 mg/dL) Pending 38 H Creatinine (0.7 - 1.2 mg/dL) Pending 1.6 H Estimated GFR (>60 ml/min) 42 L BUN/Creatinine Ratio (7 - 25 %) Pending 23.8 Hemoglobin A1c Pending Hematology CBC w Diff Pending WBC Pending RBC Pending Hgb Pending Hct Pending MCV Pending MCH Pending MCHC Pending RDW Pending Plt Count Pending MPV Pending 07/17 07/17 1427 1135 Chemistry Sodium (137 - 145 mmol/L) 129 L Potassium (3.5 - 5.1 mmol/L) 5.6 H Chloride (98 - 107 mmol/L) 88 L Carbon Dioxide (22 - 30 mmol/L) 29 Anion Gap (5 - 16) 12 BUN (9 - 20 mg/dL) 42 H Creatinine (0.7 - 1.2 mg/dL) 1.9 H Estimated GFR (>60 ml/min) 35 L BUN/Creatinine Ratio (7 - 25 %) 22.1 Glucose (65 - 99 mg/dL) 617 *H Calcium (8.4 - 10.2 mg/dL) 9.2 Total Bilirubin (0.2 - 1.3 mg/dL) 1.3 AST (17 - 59 U/L) 14 L ALT (21 - 72 U/L) 25 Alkaline Phosphatase (< 127 U/L) 127 H Troponin I (<0.11 ng/ml) 0.06 Total Protein (6.3 - 8.2 g/dL) 6.2 L Albumin (3.5 - 5.0 g/dL) 3.8 Globulin (1.9 - 4.2 gm/dL) 2.4 Albumin/Globulin Ratio (1.1 - 2.2 %) 1.6 TSH (0.270 - 4.200 uIU/mL) 2.330 Free T4 (0.78 - 2.44 ng/dL) 1.54 Hematology CBC w Diff NO MAN DIFF REQ WBC (4.8 - 10.8 /CUMM) 13.1 H RBC (4.70 - 6.10 /CUMM) 4.48 L Hgb (14.0 - 18.0 G/DL) 14.9 Hct (42 - 52 %) 44.7 MCV (80.0 - 94.0 FL) 99.7 H MCH (27.0 - 31.0 PG) 33.3 H MCHC (33.0 - 37.0 G/DL) 33.3 RDW (11.5 - 14.5 %) 15.4 H Plt Count (130 - 400 /CUMM) 141 MPV (7.4 - 10.4 FL) 9.0 Gran % (42.2 - 75.2 %) 90.6 H Lymphocytes % (20.5 - 51.1 %) 3.6 L Monocytes % (1.7 - 9.3 %) 5.6 Eosinophils % (0 - 5 %) 0 Basophils % (0.0 - 2.0 %) 0.2 Absolute Granulocytes (1.4 - 6.5 /CUMM) 11.9 H Absolute Lymphocytes (1.2 - 3.4 /CUMM) 0.5 L Absolute Monocytes (0.10 - 0.60 /CUMM) 0.7 H Absolute Eosinophils (0.0 - 0.7 /CUMM) 0 Absolute Basophils (0.0 - 0.2 /CUMM) 0 Urines Urine Color (YEL,AMB,STR) YEL Urine Clarity (CLEAR) CLEAR Urine pH (5.0 - 8.0) 6.0 Ur Specific Sarah (1.001 - 1.035) 1.015 Urine Protein (NEG,<30 MG/DL) NEG Urine Ketones (NEG) NEG Urine Nitrite (NEG) NEG Urine Bilirubin (NEG) NEG Urine Urobilinogen (0.1 - 1.0 EU/dl) 0.2 Ur Leukocyte Esterase (NEG) NEG Ur Microscopic EXAM NOT REQUIRED Urine Hemoglobin (NEG) NEG Urine Glucose (N MG/DL) >=1000 H Assessment/Plan Assessment/Plan 76 [id number] with a PMH significant for small cell lung carcinoma status post radiation and on prednisone therapy ( prednisone 50 mg daily since 2017), COPD on 2 L at home, CAD s/p CABG and PCI with stend placement, ischemic cardiomyopathy with EF of 20-25% status post AICD, CKD, hypothyroidism, aortic stenosis, peripheral arterial disease, PATTI on CPAP presented to emergency room with chief complaint of sore throat eating food and dysgeusia. He was newly diagnosed with diabetes with glucose of of 617 after he was placed on prednisone 50 mg daily. Plan: 1. start Levemir 15 units daily; 2. adjust Novolog coverage before meals and Novolog coverage at bedtime; detail see the inpatient DM orders; 3. monitor FSGs; 4. diabetes education/ glucometer teaching/nutrition consult; will follow. Inpatient Diabetes Orders Before Each Meal: Bolus Insulin: Novolog < 80 mg/dl: no coverage 80-100 mg/dl: 5 units 101-120 mg/dl: 5 units 121-150 mg/dl: 5 units 151-200 mg/dl: 7 units 201-250 mg/dl: 9 units 251-300 mg/dl: 11 units 301-350 mg/dl: 13 units 351-400 mg/dl: 15 units > 400 mg/dl: 16 units Bedtime: Bolus Insulin: Novolog < 80 mg/dl: no coverage 80-100 mg/dl: no coverage 101-120 mg/dl: no coverage 121-150 mg/dl: no coverage 151-200 mg/dl: no coverage 201-250 mg/dl: no coverage 251-300 mg/dl: 2 units 301-350 mg/dl: 3 units 351-400 mg/dl: 4 units > 400 mg/dl: 5 units Consult Acknowledgment - Thank you for your consult request.
[2017-07-18 09:06] LABS: ABSOLUTE BASOPHIL COUNT 0 /CUMM (0.0-0.2); ABSOLUTE EOSINOPHIL COUNT 0 /CUMM (0.0-0.7); ABSOLUTE GRANULOCYTE CT 8.6 /CUMM (1.4-6.5); ABSOLUTE LYMPH COUNT 0.3 /CUMM (1.2-3.4); ABSOLUTE MONOCYTE COUNT 0.3 /CUMM (0.10-0.60); BASOPHIL % 0 % (0.0-2.0); EOSINOPHIL % 0 % (0-5); MEAN CORPUSCULAR HGB 34.3 PG (27.0-31.0); MEAN CORPUSCULAR HGB CONC 34.7 G/DL (33.0-37.0); MEAN CORPUSCULAR VOLUME 98.8 FL (80.0-94.0); MEAN PLATELET VOLUME 9.4 FL (7.4-10.4); PLATELET COUNT 111 /CUMM (130-400); RBC DISTRIBUTION WIDTH 16.1 % (11.5-14.5); RED BLOOD CELL CT 3.93 /CUMM (4.70-6.10); WHITE BLOOD CELL COUNT 9.2 /CUMM (4.8-10.8)
[2017-07-18 10:10] LABS: HEMATOCRIT 38.9 % (42-52)
[2017-07-18 10:11] LABS: GRANULOCYTE % 93.3 % (42.2-75.2)
[2017-07-18 11:15] VITALS: BP 122/70
[2017-07-18 13:50] VITALS: BP 112/60
--- NOTE | 2017-07-18 21:03 | Event Note ---
Event Note Event Note: Patient's Oncologist Dr. Lynch ([phone]) was reached over the phone regarding patient's use of prednisone for his radiation-induced pneumonitis. Patient has been on prednisone 50 mg, per Dr. Lynch, for a while, however had been resolving hyperglycemia events. Patient's was not satisfied regarding the prednisone-induced hyperglycemia, and has contacted us and Dr. Lynch today and requested prednisone taper. Dr. Lynch suggested to start prednisone tapering tomorrow at 40 mg daily p.o. , and may continue a 10 mg taper every 3-4 days. Prednisone 40 mg daily p.o. was ordered for 07/19/2017, and will sign out to the morning team to contact Dr. Porras for the phone again during morning rounds to discuss further taper plan , and prescribing prednisone after discharge from this hospital stay.
[2017-07-18 22:07] VITALS: BP 102/54
[2017-07-19 06:20] VITALS: BP 106/64
--- NOTE | 2017-07-19 07:13 | PN- Housestaff ---
Estuardo Mariano MD,[facility] 07/19/17 0712: Subjective Follow-up For: Oral thrush Diabetes mellitus Dehydration Subjective: Patient visited today, was lying in bed in no acute distress, was alert and oriented. No fever or chills, no shortness of breathing, no chest pain, no other events. Improved oral trush. BS still in 300s, adjusted insulin per endo Cardiology consulted, stopped nitrate Prenisolon started to taper Review of Systems Constitutional: Reports: see HPI. Objective Last 24 Hrs of Vital Signs/I&O Vital Signs Date Time Temp Pulse Resp B/P B/P Pulse O2 O2 Flow FiO2 Mean Ox Delivery Rate 07/19 1333 98.0 72 20 110/60 98 Nasal 2.0L Cannula 07/19 1100 97 Nasal 2.0L Cannula 07/19 1003 74 100/74 07/19 0824 78 106/64 07/19 0824 78 106/64 07/19 0824 78 106/64 07/19 0800 Nasal 2.0L Cannula 07/19 0620 98.1 78 20 106/64 96 Nasal Cannula 07/19 0000 Nasal 2.0L Cannula 07/18 2246 73 98 07/18 2207 97.8 63 20 102/54 97 Nasal 2.0L Cannula 07/18 2105 63 102/54 07/18 2105 63 102/54 07/18 2103 97.8 63 20 102/54 07/18 2025 98 Nasal 2.0L Cannula 07/18 1600 95 Nasal 2.0L Cannula Intake & Output 07/19 1600 07/19 0800 07/19 0000 Intake Total 480 60 480 Output Total 200 1125 400 Balance 280 -1065 80 Intake, Oral 480 60 480 Number 0 Bowel Movements Output, Urine 200 1125 400 Patient 218 lb Weight Physical Exam General Appearance: Alert, Oriented X3, No Acute Distress Skin Temp/Moisture Exam: Warm/Dry HEENT: Atraumatic, no trush Cardiovascular: Normal S1, Normal S2 Lungs: Normal Air Movement Abdomen: Soft, No Tenderness Neurological: Normal Speech, Strength at 5/5 X4 Ext Current Medications: Current Medications Sig/Penny Start time Last Medication Dose Route Stop Time Status Admin Acetaminophen 650 MG Q6P PRN 07/17 1530 AC PO Albuterol Sulfate 3 ML BID 07/18 1056 AC 07/19 INH 1107 Aspirin 81 MG DAILY 07/18 0900 AC 07/19 PO 0824 Atorvastatin Calcium 40 MG DAILY@1700 07/17 1700 AC 07/18 PO 1718 Budesonide/ 2 PUF BID 07/17 2100 AC 07/19 Formoterol Fumarate INH 0822 Carvedilol 6.25 MG BID 07/17 2100 AC 07/19 PO 0824 Clopidogrel Bisulfate 75 MG DAILY 07/18 0900 AC 07/19 PO 0824 Heparin Sodium 5,000 UNIT Q8 07/18 0600 AC 07/19 (Porcine) SC 1350 Insulin Aspart 0 TIDAC 07/18 08 AC 07/19 SC 1242 Insulin Aspart 0 AT BEDTIME 07/17 2100 AC 07/18 SC 2103 Insulin Detemir 15 UNITS DAILY 07/18 09 AC 07/19 SC 0825 Isosorbide 60 MG DAILY 07/18 0900 DC 07/19 Mononitrate PO 0824 Levothyroxine Sodium 0.1 MG DAILY AC 07/18 0700 AC 07/19 PO 0610 Lidocaine 15 ML BID 07/18 0900 AC 07/19 PO 0823 Nitroglycerin 0.4 MG EVERY 5 MIN PRN 07/17 1615 AC Nystatin 5 ML 4 TIMES/DAY 07/17 1458 AC 07/19 PO 1241 Omeprazole 40 MG DAILY AC 07/18 0700 AC 07/19 PO 0610 Prednisone 40 MG DAILY 07/19 0900 AC 07/19 PO 0824 Prednisone 50 MG DAILY 07/17 1700 DC 07/18 PO 0843 Ranolazine 500 MG BID 07/17 2100 AC 07/19 PO 0824 Sertraline HCl 50 MG DAILY 07/18 0900 AC 07/19 PO 0824 Tamsulosin HCl 0.4 MG AT BEDTIME 07/17 2100 AC 07/18 PO 2103 Tiotropium [place] 1 PUF DAILY 07/17 1607 AC 07/19 INH 0823 Last 24 Hrs of Lab/Abimael Results Last 24 Hrs of Labs/Mics: Laboratory Tests 07/19/17 0631: Anion Gap 9, Estimated GFR 50 L, BUN/Creatinine Ratio 30.0 H, Serum Osmolality 295, Cortisol AM Sample 5.4, CBC w Diff MAN DIFF ORDERED, RBC 3.73 L, MCV 99.1 H, MCH 33.3 H, MCHC 33.6, RDW 15.6 H, MPV 9.3, Gran % 86.9 H, Lymphocytes % 6.7 L, Monocytes % 6.4, Eosinophils % 0, Basophils % 0, Absolute Granulocytes 8.1 H, Absolute Lymphocytes 0.6 L, Absolute Monocytes 0.6, Absolute Eosinophils 0, Absolute Basophils 0, Platelet Estimate DECREASED, Poikilocytosis 1+, Anisocytosis 1+, Ovalocytes 1+, [place] Cells 1+ Assessment/Plan Assessment: Mr Almonte is a 76 [id number] with a PMH significant for 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 and on prednisone therapy, COPD on 2 L at home, CAD s/p CABG and PCI with stend placement, ischemic cardiomyopathy with EF of 20 -25% status post AICD, CKD, hypothyroidism, aortic stenosis, peripheral arterial disease, PATTI on CPAP who came to emergency room with chief complaint of sore throat eating food and dysgeusia/ageusia Vital signs in ED was notable for low blood pressure 74/49, heart rate 66, no fever 96% on 2 L Labs were notable for WBC 13.1, MCV 99, sodium 129, potassium 4.6, glucose 617, creatinine 1.9 baseline is 1.6, CL 88 , UA showed glucose more than 1000 Patient received 1-1/2 L of normal saline in the ED, 10 units of insulin Novolin , 1 dose of clotrimazole 10 mg Blood pressure increased to 111/58 after hydration CXR 1. No active cardiopulmonary disease. There is no significant change. 2. There is stable moderate plate-like scar/subsegmental atelectasis at the left base. Patient was admitted to [facility] floor for management of following conditions: - Hyperglycemia, DM - Oral trush - Chronic medical conditions: CHF with low EF of 20-25% with AICD, CAD on dual antiplatelet therapy, small cell cancer status post radiation now on prednisone therapy for pneumonitis, COPD on 2 L, hypothyroid Plan: - Contiue admission to general floor - No more IV hydration for now due to low EF - Hb a1c: 12 - levemir and sliding scale - follow endo consult - Nystatin 4 times a day orally swish and swallow - currently significant improvement - Continue home medications: levothyroxine, aspirin, Plavix, Ranexa, tamsulosin, Lipitor - Hold Lasix and imdur for now - Continue Coreg, inhalers and TRC nebs - Started to taper p.o. prednisone to 40 mg p.o. daily, reduce 10mg every 3-4 day Diabetic diet, full code, DVT prophylaxis is subcu heparin and mechanical, Tylenol for pain, Problem List: 1. Hyperglycemia without ketosis 2. Diabetes mellitus Pain Ratin Pain Location: none Pain Goal: Pain 4 or less Pain Plan: Continue current plan Tomorrow's Labs & Rationales: None Juan Pablo LUNDNicholasdhara 07/19/17 1050: Attending MD Review Statement Attending Statement Attending MD Statement: examined this patient, discuss w/resident/PA/PATENT SOLICITOR, agreed w/resident/PA/PATENT SOLICITOR, reviewed EMR data (avail), discussed with nursing, discussed with case mgmt, amended to note Attending Assessment/Plan: Resting comfortably and not in any acute distress. No issues overnight reported by nursing staff. He was started on insulin therapy by the endocrinology service yesterday. Glucose levels do remain elevated this morning. Adjustments have been made to his sliding scale by the endocrinology service today. Orthostatic vitals were rechecked this morning. Although his supine blood pressure is on the lower side he did not have orthostatic blood pressure or heart rate changes this morning. His initial changes may have been related to volume depletion. His diuretic therapy have been on hold. The concern at present is his current borderline blood pressure. His cardiology service has been notified. Problems: 1. Newly diagnosed diabetes mellitus 2. Hypotension with orthostatic blood pressure changes. 3. Oral thrush; resolving 4. Thrombocytopenia 5. Hyponatremia Recommendations: -Endocrinology follow-up appreciated. Continue recommendations for management of his newly diagnosed diabetes mellitus. Awaiting medication by the honing machine set up operator tool. Nursing staff will instruct patient on how to check his blood glucose levels and administer his insulin. -Blood pressure is currently borderline. Patient is on a number of cardiac medications including nitrates and beta-nya. He was uninterested in the past however he appears to have stopped this a while ago. He also was on an ARB in the past with also appears to have been stopped. He probably has been having blood pressure issues in the outpatient setting. We will follow-up recommendations from his cardiology service regarding management of his cardiac regimen particularly his antihypertensive medications. -His diuretic is on hold however given his chronic systolic dysfunction we may not be able stop this completely. He currently appears euvolemic. We will continue to hold particularly in view of his low blood pressure unless otherwise recommended by his tour leader. -He is noted to be more hyponatremic today. Check serum and urine osmolarity and urine electrolytes. Repeat serum chemistry in a.m. -Patient was to be thrombocytopenic today. Recommend peripheral smear to rule out platelet clumping. Repeat CBC in a.m. to monitor trend.
[2017-07-19] MEDS ORDERED: PREDNISONE10 M2 PO (08:12)
[2017-07-19 09:06] LABS: ABSOLUTE BASOPHIL COUNT 0 /CUMM (0.0-0.2); ABSOLUTE EOSINOPHIL COUNT 0 /CUMM (0.0-0.7); ABSOLUTE GRANULOCYTE CT 8.1 /CUMM (1.4-6.5); ABSOLUTE LYMPH COUNT 0.6 /CUMM (1.2-3.4); ABSOLUTE MONOCYTE COUNT 0.6 /CUMM (0.10-0.60); BASOPHIL % 0 % (0.0-2.0); EOSINOPHIL % 0 % (0-5); GRANULOCYTE % 86.9 % (42.2-75.2); MEAN CORPUSCULAR HGB 33.3 PG (27.0-31.0); MEAN CORPUSCULAR HGB CONC 33.6 G/DL (33.0-37.0); MEAN CORPUSCULAR VOLUME 99.1 FL (80.0-94.0); MEAN PLATELET VOLUME 9.3 FL (7.4-10.4); PLATELET COUNT 109 /CUMM (130-400); RBC DISTRIBUTION WIDTH 15.6 % (11.5-14.5); RED BLOOD CELL CT 3.73 /CUMM (4.70-6.10); WHITE BLOOD CELL COUNT 9.3 /CUMM (4.8-10.8)
--- NOTE | 2017-07-19 09:06 | PN- Diabetes ---
Assessment/Plan Diabetes Assessment: 76 [id number] with a PMH significant for small cell lung carcinoma status post radiation and on prednisone therapy ( prednisone 50 mg daily since 2017), COPD on 2 L at home, CAD s/p CABG and PCI with stend placement, ischemic cardiomyopathy with EF of 20-25% status post AICD, CKD, hypothyroidism, aortic stenosis, peripheral arterial disease, PATTI on CPAP presented to emergency room with chief complaint of sore throat eating food and dysgeusia. He was newly diagnosed with diabetes with glucose of of 617. His HbA1c was 12.5%. He was put on Levemir 15 units once a day, Novolog coverage before meals and Novolog coverage at bedtime. His FSGs were 317, 371, 328, 354 and 272. The team has touched base with his oncologist and patient will be on prednisone taper. Starting 07/19/2017, he will be on prednisone 40 mg daily. Plan: 1. continue Levemir 15 units daily for now; 2. adjust Novolog coverage before meals; detail see the inpatient DM order; 3. continue the current Novolog coverage at bedtime; 4. monitor FSGs. will follow. Inpatient Diabetes Orders Before Each Meal: Bolus Insulin: Novolog < 80 mg/dl: no coverage 80-100 mg/dl: 7 units 101-120 mg/dl: 7 units 121-150 mg/dl: 7 units 151-200 mg/dl: 9 units 201-250 mg/dl: 11 units 251-300 mg/dl: 13 units 301-350 mg/dl: 15 units 351-400 mg/dl: 17 units > 400 mg/dl: 18 units Subjective Subjective: He has no special complaints this morning. Objective Last 24 Hrs of Vital Signs/I&O Vital Signs Date Time Temp Pulse Resp B/P B/P Pulse O2 O2 Flow FiO2 Mean Ox Delivery Rate 07/20 823 78 07/19 0824 78 07/19 0824 78 07/19 0800 Nasal 2.0L Cannula 07/19 0620 98.1 78 20 106/64 96 Nasal Cannula 07/19 0000 Nasal 2.0L Cannula 07/18 2246 73 98 07/187 97.8 63 20 97 Nasal 2.0L Cannula 07/18 2104 63 102/54 04/30 2105 63 102/54 07/18 2103 97.8 63 20 102/54 07/18 2025 98 Nasal 2.0L Cannula 07/18 1600 95 Nasal 2.0L Cannula 07/18 1350 98.7 60 20 112/60 95 Room Air 07/18 1115 81 122/70 07/18 1056 94 Nasal 2.0L Cannula Intake & Output 07/19 1600 07/19 0800 07/19 0000 Intake Total 60 480 Output Total 1125 400 Balance -1065 80 Intake, Oral 60 480 Output, Urine 1125 400 Findings Pertinent Lab/Abimael Results: Laboratory Tests 07/19 0631 Chemistry Sodium Pending Potassium Pending Chloride Pending Carbon Dioxide Pending Anion Gap Pending BUN Pending Creatinine Pending BUN/Creatinine Ratio Pending Cortisol AM Sample Pending Hematology CBC w Diff Pending WBC Pending RBC Pending Hgb Pending Hct Pending MCV Pending MCH Pending MCHC Pending RDW Pending Plt Count Pending MPV Pending
[2017-07-19 10:03] VITALS: BP 100/74
--- NOTE | 2017-07-19 11:11 | Cons- Cardiology ---
General Information and HPI Consulting Request Date of Consult: 07/19/17 Requested By: Wale Almeida MD Reason for Consult: Orthostatic hypotension Source of Information: patient, old records Exam Limitations: no limitations History of Present Illness: The patient is a 76-year-old gentleman with a past medical history of coronary artery disease (status post prior bypass surgery and coronary intervention), and ischemic cardiomyopathy with an LVEF of 35% in December 2016, abdominal aortic aneurysm, status post EVAR, mild to moderate aortic stenosis, moderate mitral regurgitation, post biventricular AICD (Medtronic), small cell lung CA status post radiation and on prednisone therapy, hypothyroidism and peripheral vascular disease. He presented to our hospital with symptoms of odynophagia, and was noted to have profound orthostatic blood pressures. From a cardiac standpoint, the patient is asymptomatic for chest pains, palpitations nor dyspnea at rest. He does state having symptoms of increasing fatigue over the past several weeks. There has been no syncope noted. On arrival to the emergency room, the patient was hypotensive with a blood pressure of 74/49 and a heart rate of 66. This responded to IV hydration with improvement of his underlying blood pressure. He was as well hyperglycemic with a glucose level of greater than 600. Of note, the patient does admit to having poor p.o. intake recently, triggered by his underlying odynophagia and mouth pain. Oral thrush was noted on his admission. Allergies/Medications Allergies: Coded Allergies: NO KNOWN ALLERGIES (NONE 05/10/17) Home Med List: Acetaminophen 325 MG CAPSULE 1 CAP PO PRN PAIN (Reported) Albuterol Sulfate (Proair Hfa) 90 MCG HFA.AER.AD 2 PUF INH Q4 COPD Aspirin (Aspirin*) 81 MG TAB.CHEW 1 TAB PO DAILY heart (Reported) Atorvastatin Calcium (Lipitor) 40 MG TABLET 1 TAB PO DAILY cholesterol ( Reported) Budesonide/Formoterol Fumarate (Symbicort 160-4.5 Mcg Inhaler) 160 MCG-4.5 MCG/ ACTUATION HFA.AER.AD 2 PUF INH BID COPD (Reported) Carvedilol 6.25 MG TABLET 1 TAB PO BID HEART/BP (Reported) Clopidogrel Bisulfate (Clopidogrel) 75 MG TABLET 1 TAB PO DAILY BLOOD THINNER (Reported) Furosemide (Lasix) 20 MG TABLET 1 TAB PO DAILY DIURETIC (Reported) Isosorbide Mononitrate (Isosorbide Mononitrate ER) 60 MG TAB.ER.24H 1 TAB PO DAILY (Reported) Levothyroxine Sodium 100 MCG TABLET 1 TAB PO DAILY THYROID (Reported) Nitroglycerin (Nitrostat) 0.4 MG TAB.SUBL 1 TAB SL AD PRN CHEST PAIN ( Reported) 1st sign of attack; may repeat every 5 minutes until relief; if pain persists after 3 tablets in 15 minutes, prompt medical att Omeprazole 40 MG CAPSULE.DR 1 CAP PO DAILY GI (Reported) Prednisone 10 MG TABLET 50 MG PO DAILY LUNG (Reported) Prednisone 10 MG TABLET 0 PO SEE ADMIN CRITERIA lung health please take: 4 pills for 3 days 3 pills for 4 days 2 pills for 4 days 1 pill for 4 days and then disscuss with your oncologist regarding stopping Ranolazine (Ranexa) 500 MG TAB.ER.12H 1 TAB PO BID heart (Reported) Sertraline HCl 50 MG TABLET 1 TAB PO DAILY MENTAL HEALTH (Reported) Tamsulosin HCl (Flomax) 0.4 MG CAP.ER.24H 1 CAP PO QHS prostate Please take at bed time to avoid low blood pressure during the day. Tiotropium [place] (Spiriva) 18 MCG CAP.W.DEV 1 CAP INH DAILY COPD (Reported) Current Medications: Current Medications Sig/Penny Start time Last Medication Dose Route Stop Time Status Admin Acetaminophen 650 MG Q6P PRN 07/17 1530 AC PO Albuterol Sulfate 3 ML BID 07/18 1056 AC 07/18 INH 2025 Aspirin 81 MG DAILY 07/18 0900 AC 07/19 PO 0824 Atorvastatin Calcium 40 MG DAILY@1700 07/17 1700 AC 07/18 PO 1718 Budesonide/ 2 PUF BID 07/17 2100 AC 07/19 Formoterol Fumarate INH 0822 Carvedilol 6.25 MG BID 07/17 2100 AC 07/19 PO 0824 Clopidogrel Bisulfate 75 MG DAILY 07/18 0900 AC 07/19 PO 0824 Heparin Sodium 5,000 UNIT Q8 07/18 06 AC 07/19 (Porcine) SC 0610 Insulin Aspart 0 TIDAC 07/18 0800 AC 07/19 SC 0825 Insulin Aspart 0 AT BEDTIME 07/17 2100 AC 07/18 SC 2103 Insulin Detemir 15 UNITS DAILY 07/18 0900 AC 07/19 SC 0825 Isosorbide 60 MG DAILY 07/18 0900 AC 07/19 Mononitrate PO 0824 Levothyroxine Sodium 0.1 MG DAILY AC 07/18 0700 AC 07/19 PO 0610 Lidocaine 15 ML BID 07/18 0900 AC 07/19 PO 0823 Nitroglycerin 0.4 MG EVERY 5 MIN PRN 07/17 1615 AC SL Nystatin 5 ML 4 TIMES/DAY 07/17 1458 AC 07/19 PO 0822 Omeprazole 40 MG DAILY AC 07/18 0700 AC 07/19 PO 0610 Patient Medication 1 ED ONE ONE 07/18 1430 DC 07/18 Teaching ED 07/18 1431 2108 Prednisone 40 MG DAILY 07/19 0900 AC 07/19 PO 0824 Prednisone 50 MG DAILY 07/17 1700 DC 07/18 PO 0843 Ranolazine 500 MG BID 07/17 2100 AC 07/19 PO 0824 Sertraline HCl 50 MG DAILY 07/18 0900 AC 07/19 PO 0824 Tamsulosin HCl 0.4 MG AT BEDTIME 07/17 2100 AC 07/18 PO 2103 Tiotropium [place] 1 PUF DAILY 07/17 1607 AC 07/19 INH 0823 Review of Systems Review of Systems: The review of systems is negative for chest pains, palpitations nor lightheadedness. The remainder of the 14 point review of systems is noncontributory with the exception of above. Past History Travel History Traveled to [place] past 21 day No Medical History Neurological: NONE EENT: NONE Cardiovascular: CARDIAC STENTS CABG CAROTID ARTERY BYPASS DEFIBRILLATOR Respiratory: COPD Gastrointestinal: NONE Hepatic: NONE Renal: NONE Musculoskeletal: NONE Psychiatric: NONE Endocrine: hypothyroidism Blood Disorders: DVT Cancer(s): lung cancer [employer] COORDINATOR/Reproductive: NONE Surgical History Surgical History: CABG, CAROTID ARTECTOMY nerve thermoablation to reduce back pain Family History Relations & Conditions If Any: Relation not specified for: *No pertinent family history Psychosocial History Who Do You Live With? spouse Services at Home: None Primary Language: Czech Smoking Status: Current Everyday Smoker Living Will? no Functional Ability ADLs Independent: dressing, eating, toileting, bathing. Ambulation: independent ECHO Results (as available) Report: Left ventricular cavity size normal. Left ventricular wall thickness mildly increased. Moderate to severe hypokinesis of the mid to basal inferior wall. Mild distal anteroseptal/anteroapical hypokinesis. Left ventricular ejection fraction is estimated at 45 %. Catheter/pacemaker wire in the right ventricular cavity. Normal right ventricular size and function. Mild left atrial dilatation. Moderate mitral regurgitation. [id number]-qmnlwxnt aortic stenosis (CAITLYN 1.4 cm2 by continuity with a mean gradient of 13 mmHg). Moderate tricuspid regurgitation. RVSP > 45 mmHg. Exam & Diagnostic Data Vital Signs and I&O Vital Signs Date Time Temp Pulse Resp B/P B/P Pulse O2 O2 Flow FiO2 Mean Ox Delivery Rate 07/19 1003 74 100/74 07/19 08 78 106/64 07/19 0824 78 106/64 07/19 0824 78 106/64 07/19 0800 Nasal 2.0L Cannula 07/19 0620 98.1 78 20 106/64 96 Nasal Cannula 07/19 0000 Nasal 2.0L Cannula 07/18 2246 73 98 07/18 2207 97.8 63 20 102/54 97 Nasal 2.0L Cannula 07/18 2105 63 102/54 07/18 2105 63 102/54 07/18 2103 97.8 63 20 102/54 07/185 98 Nasal 2.0L Cannula 07/18 1600 95 Nasal 2.0L Cannula 07/18 1350 98.7 60 20 112/60 95 Room Air 07/18 1115 81 122/70 Intake & Output 07/19 1600 07/19 0807/19 0000 07/18 1600 07/18 0800 07/18 0000 Intake Total 60 480 700 Output Total 1125 400 600 600 800 Balance -1065 80 -600 -600 -100 Intake, Oral 60 480 700 Number 1 Bowel Movements Output, Urine 1125 400 600 600 800 Patient 218 lb Weight Physical Exam: General: Nontoxic, no apparent distress. HEENT: Sclera and conjunctiva within normal limits, without xanthelasmas. Neck: Carotids 2+ without bruits. Respiratory: Scattered rhonchi, air movement is good, without accessory respiratory muscle use. Heart: Regular rate and rhythm, 2 out of 6 systolic ejection murmur at left sternal border, without JVD. Abdomen: Soft, nontender, no masses, normoactive bowel sounds. Extremities: Without clubbing, cyanosis, without edema. Neuro: Nonfocal exam, strength, 5 out of 5 Skin: Within normal limits without lesions. Psych: Mood and affect: Normal Labs/Abimael Results: Laboratory Tests 07/19 07/18 0653 2929 Chemistry Sodium (137 - 145 mmol/L) 129 L 133 L Potassium (3.5 - 5.1 mmol/L) 4.6 5.6 H Chloride (98 - 107 mmol/L) 93 L 96 L Carbon Dioxide (22 - 30 mmol/L) 26 28 Anion Gap (5 - 16) 9 9 BUN (9 - 20 mg/dL) 42 H 35 H Creatinine (0.7 - 1.2 mg/dL) 1.4 H 1.4 H Estimated GFR (>60 ml/min) 50 L 50 L BUN/Creatinine Ratio (7 - 25 %) 30.0 H 25.0 Cortisol AM Sample (4.46 - 22.7 ug/dL) 5.4 Hematology CBC w Diff MAN DIFF ORDERED NO MAN DIFF REQ WBC (4.8 - 10.8 /CUMM) 9.3 9.2 RBC (4.70 - 6.10 /CUMM) 3.73 L 3.93 L Hgb (14.0 - 18.0 G/DL) 12.4 L 13.5 L Hct (42 - 52 %) 37.0 L 38.9 L MCV (80.0 - 94.0 FL) 99.1 H 98.8 H MCH (27.0 - 31.0 PG) 33.3 H 34.3 H MCHC (33.0 - 37.0 G/DL) 33.6 34.7 RDW (11.5 - 14.5 %) 15.6 H 16.1 H Plt Count (130 - 400 /CUMM) 109 L 111 L MPV (7.4 - 10.4 FL) 9.3 9.4 Gran % (42.2 - 75.2 %) 86.9 H 93.3 H Lymphocytes % (20.5 - 51.1 %) 6.7 L 3.1 L Monocytes % (1.7 - 9.3 %) 6.4 3.6 Eosinophils % (0 - 5 %) 0 0 Basophils % (0.0 - 2.0 %) 0 0 Absolute Granulocytes (1.4 - 6.5 /CUMM) 8.1 H 8.6 H Absolute Lymphocytes (1.2 - 3.4 /CUMM) 0.6 L 0.3 L Absolute Monocytes (0.10 - 0.60 /CUMM) 0.6 0.3 Absolute Eosinophils (0.0 - 0.7 /CUMM) 0 0 Absolute Basophils (0.0 - 0.2 /CUMM) 0 0 Platelet Estimate (ADEQUATE) DECREASED Poikilocytosis 1+ Anisocytosis 1+ Ovalocytes 1+ Melchor Cells 1+ 07/17 07/17 07/17 1630 1630 1427 Chemistry Sodium (137 - 145 mmol/L) 131 L Potassium (3.5 - 5.1 mmol/L) 4.8 Chloride (98 - 107 mmol/L) 96 L Carbon Dioxide (22 - 30 mmol/L) 27 Anion Gap (5 - 16) 8 BUN (9 - 20 mg/dL) 38 H Creatinine (0.7 - 1.2 mg/dL) 1.6 H Estimated GFR (>60 ml/min) 42 L BUN/Creatinine Ratio (7 - 25 %) 23.8 Hemoglobin A1c (4.2 - 5.8 %) 12.5 H Urines Urine Color (YEL,AMB,STR) YEL Urine Clarity (CLEAR) CLEAR Urine pH (5.0 - 8.0) 6.0 Ur Specific [place] (1.001 - 1.035) 1.015 Urine Protein (NEG,<30 MG/DL) NEG Urine Ketones (NEG) NEG Urine Nitrite (NEG) NEG Urine Bilirubin (NEG) NEG Urine Urobilinogen (0.1 - 1.0 EU/dl) 0.2 Ur Leukocyte Esterase (NEG) NEG Ur Microscopic EXAM NOT REQUIRED Urine Hemoglobin (NEG) NEG Urine Glucose (N MG/DL) >=1000 H 07/17 1135 Chemistry Sodium (137 - 145 mmol/L) 129 L Potassium (3.5 - 5.1 mmol/L) 5.6 H Chloride (98 - 107 mmol/L) 88 L Carbon Dioxide (22 - 30 mmol/L) 29 Anion Gap (5 - 16) 12 BUN (9 - 20 mg/dL) 42 H Creatinine (0.7 - 1.2 mg/dL) 1.9 H Estimated GFR (>60 ml/min) 35 L BUN/Creatinine Ratio (7 - 25 %) 22.1 Glucose (65 - 99 mg/dL) 617 *H Calcium (8.4 - 10.2 mg/dL) 9.2 Total Bilirubin (0.2 - 1.3 mg/dL) 1.3 AST (17 - 59 U/L) 14 L ALT (21 - 72 U/L) 25 Alkaline Phosphatase (< 127 U/L) 127 H Troponin I (<0.11 ng/ml) 0.06 Total Protein (6.3 - 8.2 g/dL) 6.2 L Albumin (3.5 - 5.0 g/dL) 3.8 Globulin (1.9 - 4.2 gm/dL) 2.4 Albumin/Globulin Ratio (1.1 - 2.2 %) 1.6 TSH (0.270 - 4.200 uIU/mL) 2.330 Free T4 (0.78 - 2.44 ng/dL) 1.54 Hematology CBC w Diff NO MAN DIFF REQ WBC (4.8 - 10.8 /CUMM) 13.1 H RBC (4.70 - 6.10 /CUMM) 4.48 L Hgb (14.0 - 18.0 G/DL) 14.9 Hct (42 - 52 %) 44.7 MCV (80.0 - 94.0 FL) 99.7 H MCH (27.0 - 31.0 PG) 33.3 H MCHC (33.0 - 37.0 G/DL) 33.3 RDW (11.5 - 14.5 %) 15.4 H Plt Count (130 - 400 /CUMM) 141 MPV (7.4 - 10.4 FL) 9.0 Gran % (42.2 - 75.2 %) 90.6 H Lymphocytes % (20.5 - 51.1 %) 3.6 L Monocytes % (1.7 - 9.3 %) 5.6 Eosinophils % (0 - 5 %) 0 Basophils % (0.0 - 2.0 %) 0.2 Absolute Granulocytes (1.4 - 6.5 /CUMM) 11.9 H Absolute Lymphocytes (1.2 - 3.4 /CUMM) 0.5 L Absolute Monocytes (0.10 - 0.60 /CUMM) 0.7 H Absolute Eosinophils (0.0 - 0.7 /CUMM) 0 Absolute Basophils (0.0 - 0.2 /CUMM) 0 Assessment/Plan Assessment/Plan 76-year-old gentleman with a past medical history of coronary artery disease ( status post prior bypass surgery and coronary intervention), and ischemic cardiomyopathy with an LVEF of 35% in December 2016, abdominal aortic aneurysm, status post EVAR, mild to moderate aortic stenosis, moderate mitral regurgitation, post biventricular AICD ([employer]), small cell lung CA status post radiation and on prednisone therapy, hypothyroidism and peripheral vascular disease. He presented to our hospital with symptoms of odynophagia, significant hyperglycemia in the setting of prednisone use, and was noted to have profound orthostatic blood pressures. Orthostatic hypotension: The patient presented with orthostatic hypotension likely from a multifactorial etiology including possible adrenocortical suppression from steroid use, as well as dehydration from both poor p.o. intake as well as from severe hypoglycemia, induced by his steroid use. He has responded to IV fluids, and I would continue the same. He has significant metabolic derangements which are likely exacerbating his symptoms, and we will attempt to correct these as well. Small cell lung CA: Continue treatment as per oncology. He will likely require a very slow prednisone taper, and as endocrinology is following him for diabetes, and as such, further workup and tapering of his steroids may be performed with their assistance. Coronary artery disease: Stable, the patient had a nuclear stress test performed as an outpatient several months ago which demonstrated no evidence of ischemia and underlying infarct. We will continue his current medication regimen; however, I would discontinue his regimen of isosorbide mononitrate as he has not had symptoms of chest discomfort. Thank you for allowing us to participate in the care of your patient. Please do not hesitate to contact us further with any questions. Sincerely, Guy Jaramillo MD [facility] Consult Acknowledgment - Thank you for your consult request.
[2017-07-19 13:33] VITALS: BP 110/60
[2017-07-19 22:21] VITALS: BP 118/60
[2017-07-20 06:20] VITALS: BP 112/68
--- NOTE | 2017-07-20 07:07 | PN- Housestaff ---
Estuardo Mariano MD,[facility] 07/20/17 0706: Subjective Follow-up For: Oral thrush Diabetes mellitus Dehydration Subjective: Patient visited today, was lying in bed comfortably in no acute distress, was alert and oriented. Patient had no complaint except weakness, that can be related to chronic steroid use. Blood sugar still high, could be related to prenisolon use, insulin dose adjusted, this is not stable to be discharged. No fever or chills, no shortness of breathing, no chest pain, no other events. We will consider to discharge patient tomorrow Review of Systems Constitutional: Reports: see HPI. Objective Last 24 Hrs of Vital Signs/I&O Vital Signs Date Time Temp Pulse Resp B/P B/P Pulse O2 O2 Flow FiO2 Mean Ox Delivery Rate 07/20 1407 97.9 72 20 100/58 97 07/20 0856 95 Nasal 2.0L Cannula 07/20 0802 73 112/68 07/20 0802 73 112/68 07/20 0800 Nasal 2.0L Cannula 07/20 0620 98.2 73 18 112/68 96 Nasal Cannula 07/20 0033 78 96 05/ 0000 Nasal 2.0L Cannula 07/19 2221 98.3 66 20 118/60 97 01 2134 73 96 07/19 2107 66 118/60 05 2107 66 118/60 07/19 2106 98.3 66 20 118/60 07/19 1910 96 Nasal 2.0L Cannula 07/19 1600 Nasal 2.0L Cannula Intake & Output 07/20 1600 07/20 0800 07/20 0000 Intake Total 1060 480 480 Output Total 400 900 900 Balance 660 -420 -420 Intake, Oral 1060 480 480 Number 0 Bowel Movements Output, Urine 400 900 900 Physical Exam General Appearance: Alert, Oriented X3, Cooperative, No Acute Distress Skin Temp/Moisture Exam: Warm/Dry Sepsis Skin Exam (color): Normal for Ethnicity HEENT: Atraumatic, EOMI Cardiovascular: Normal S1, Normal S2 Lungs: Normal Air Movement Abdomen: Soft, No Tenderness Neurological: Normal Speech Current Medications: Current Medications Sig/Penny Start time Last Medication Dose Route Stop Time Status Admin Acetaminophen 650 MG Q6P PRN 07/17 1530 AC PO Albuterol Sulfate 3 ML BID 07/18 1056 AC 07/20 INH 0856 Aspirin 81 MG DAILY 07/18 0900 AC 07/20 PO 0801 Atorvastatin Calcium 40 MG DAILY@1700 07/17 1700 AC 07/19 PO 1701 Budesonide/ 2 PUF BID 07/17 2100 AC 07/20 Formoterol Fumarate INH 08 Carvedilol 6.25 MG BID 07/17 2100 AC 07/20 PO 0802 Clopidogrel Bisulfate 75 MG DAILY 07/18 09 AC 07/20 PO 0802 Heparin Sodium 5,000 UNIT Q8 07/18 06 AC 07/20 (Porcine) SC 1328 Insulin Aspart 0 TIDAC 07/18 08 AC 07/20 SC 1146 Insulin Aspart 0 AT BEDTIME 07/17 2099 AC 07/19 SC 2112 Insulin Detemir 25 UNITS DAILY 07/20 09 AC 07/20 SC 0817 Insulin Detemir 15 UNITS DAILY 07/18 0900 DC 07/20 SC 0800 Levothyroxine Sodium 0.1 MG DAILY AC 07/18 0700 AC 07/20 PO 0517 Lidocaine 15 ML BID 07/18 09 AC 07/20 PO 0801 Nitroglycerin 0.4 MG EVERY 5 MIN PRN 07/17 1615 AC Nystatin 5 ML 4 TIMES/DAY 07/17 1458 AC 07/20 PO 1328 Omeprazole 40 MG DAILY AC 07/18 07 AC 07/20 PO 0517 Patient Medication 1 ED ONE ONE 07/20 1115 ME 07/20 Teaching ED 07/20 1116 1146 Prednisone 40 MG DAILY 07/19 0900 AC 07/20 PO 0802 Ranolazine 500 MG BID 07/17 2099 AC 07/20 PO 0802 Sertraline HCl 50 MG DAILY 07/18 09 AC 07/20 PO 0801 Tamsulosin HCl 0.4 MG AT BEDTIME 07/17 2099 AC 07/19 PO 2107 Tiotropium [place] 1 PUF DAILY 07/17 1607 AC 07/20 INH 0802 Last 24 Hrs of Lab/Abimael Results Last 24 Hrs of Labs/Mics: Laboratory Tests 07/20/17 0615: Anion Gap 8, Estimated GFR 50 L, BUN/Creatinine Ratio 27.9 H, CBC w Diff NO MAN DIFF REQ, RBC 3.79 L, MCV 100.1 H, MCH 33.3 H, MCHC 33.2, RDW 15.6 H, MPV 9.3, Gran % 85.0 H, Lymphocytes % 7.7 L, Monocytes % 7.2, Eosinophils % 0, Basophils % 0.1, Absolute Granulocytes 7.3 H, Absolute Lymphocytes 0.7 L, Absolute Monocytes 0.6, Absolute Eosinophils 0, Absolute Basophils 0 07/19/170: Urine Osmolality 699, Ur Random Creatinine 64.3, Ur Random Sodium 25 L, Ur Random Potassium 28.4, Fraction Sodium Excret 0.4 Assessment/Plan Assessment: Mr Almonte is a 76 [id number] with a PMH significant for 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 and on prednisone therapy, COPD on 2 L at home, CAD s/p CABG and PCI with stend placement, ischemic cardiomyopathy with EF of 20 -25% status post AICD, CKD, hypothyroidism, aortic stenosis, peripheral arterial disease, PATTI on CPAP who came to emergency room with chief complaint of sore throat eating food and dysgeusia/ageusia Vital signs in ED was notable for low blood pressure 74/49, heart rate 66, no fever 96% on 2 L Labs were notable for WBC 13.1, MCV 99, sodium 129, potassium 4.6, glucose 617, creatinine 1.9 baseline is 1.6, CL 88 , UA showed glucose more than 1000 Patient received 1-1/2 L of normal saline in the ED, 10 units of insulin Novolin , 1 dose of clotrimazole 10 mg Blood pressure increased to 111/58 after hydration CXR 1. No active cardiopulmonary disease. There is no significant change. 2. There is stable moderate plate-like scar/subsegmental atelectasis at the left base. Patient was admitted to G[facility] floor for management of following conditions: - Hyperglycemia, DM - Oral trush - Chronic medical conditions: CHF with low EF of 20-25% with AICD, CAD on dual antiplatelet therapy, small cell cancer status post radiation now on prednisone therapy for pneumonitis, COPD on 2 L, hypothyroid Plan: - Contiue admission to general floor - No more IV hydration for now due to low EF - Hb a1c: 12 - levemir and sliding scale, adjusted - high blood sugar can be related to steroid use and diet - downgrade carb in consistant carb diet to "3" - follow endo consult - blood pressure are more stable - follow cardiology - Nystatin 4 times a day orally swish and swallow - currently significant improvement, consider to stop - Continue home medications: levothyroxine, aspirin, Plavix, Ranexa, tamsulosin, Lipitor - continue carvedilol as blood pressure allows - Hold Lasix and imdur for now - Continue Coreg, inhalers and TRC nebs - Started to taper p.o. prednisone to 40 mg p.o. daily, reduce 10mg every 3-4 day Diabetic diet, full code, DVT prophylaxis is subcu heparin and mechanical, Tylenol for pain, Problem List: 1. Diabetes mellitus Pain Ratin Pain Location: None Pain Goal: Pain 4 or less Pain Plan: continue current plan Tomorrow's Labs & Rationales: None Juan Pablo LUND,[place] 07/20/17 1012: Attending MD Review Statement Attending Statement Attending MD Statement: examined this patient, discuss w/resident/PA/LABEL MAKER, agreed w/resident/PA/LABEL MAKER, reviewed EMR data (avail), discussed with nursing, discussed with case mgmt, amended to note Attending Assessment/Plan: Patient seen and examined. Resting comfortably not in any acute distress. No issues overnight reported by nursing staff. This morning he is alert oriented 3. He denies any pain. Blood glucose remains significantly elevated in the high 300s. He was followed by the endocrinology service this morning. Recommendations are to increase the dose of his Levemir insulin to 25 units daily. We will maintain the patient in the hospital tonight to determine his response to this change in medication regimen particularly to ensure that he does not develop any significant hypoglycemia. We will reevaluate for discharge home tomorrow after observing his response to therapy. Patient had significant orthostatic blood pressure changes on admission. This has resolved. He was hypotensive yesterday. We do appreciate consultation by his cardiology service. Recommendations are to discontinue his nitrate therapy. Blood pressure this morning is acceptable. Patient denies dizziness or lightheadedness. Patient is eager to ambulate today. This was discussed with nursing staff will ensure that patient ambulates frequently today. His platelet count was on the lower side yesterday. Etiology for thrombocytopenia is uncertain. However levels are trending upwards. Recommend outpatient monitoring of his CBCs. Sodium level has also improved. Likely related to his hyperglycemia. I did speak with the patient's oncologist yesterday. We will continue to taper down his steroid therapy which was started for radiation-induced pneumonitis.
[2017-07-20 08:39] LABS: ABSOLUTE BASOPHIL COUNT 0 /CUMM (0.0-0.2); ABSOLUTE EOSINOPHIL COUNT 0 /CUMM (0.0-0.7); ABSOLUTE GRANULOCYTE CT 7.3 /CUMM (1.4-6.5); ABSOLUTE LYMPH COUNT 0.7 /CUMM (1.2-3.4); ABSOLUTE MONOCYTE COUNT 0.6 /CUMM (0.10-0.60); BASOPHIL % 0.1 % (0.0-2.0); EOSINOPHIL % 0 % (0-5); MEAN CORPUSCULAR HGB 33.3 PG (27.0-31.0); MEAN CORPUSCULAR HGB CONC 33.2 G/DL (33.0-37.0); MEAN CORPUSCULAR VOLUME 100.1 FL (80.0-94.0); MEAN PLATELET VOLUME 9.3 FL (7.4-10.4); PLATELET COUNT 118 /CUMM (130-400); RBC DISTRIBUTION WIDTH 15.6 % (11.5-14.5); RED BLOOD CELL CT 3.79 /CUMM (4.70-6.10); WHITE BLOOD CELL COUNT 8.6 /CUMM (4.8-10.8)
--- NOTE | 2017-07-20 11:47 | PN- Diabetes ---
Assessment/Plan Diabetes Assessment: 76 [id number] with a PMH significant for small cell lung carcinoma status post radiation and on prednisone therapy ( prednisone 50 mg daily since 2017), COPD on 2 L at home, CAD s/p CABG and PCI with stend placement, ischemic cardiomyopathy with EF of 20-25% status post AICD, CKD, hypothyroidism, aortic stenosis, peripheral arterial disease, PATTI on CPAP presented to emergency room with chief complaint of sore throat eating food and dysgeusia. He was newly diagnosed with diabetes with glucose of of 617. His HbA1c was 12.5%. He was put on Levemir 15 units once a day; Novolog coverage before meals was adjusted. In addition, he is on another Novolog coverage at bedtime. His FSGs were 272, 303, 310 358, 393 and 350. He is on consistent carbohydrates 3 diet. The team touched base with his oncologist and patient will be on prednisone taper. Starting 07/19/2017, prednisone was decreased to 40 mg daily. Plan: 1. diet control; change diet to consistent carbohydrates 1 diet; 2. increase Levemir to 25 units daily; 3. adjust Novolog coverage before meals; detail see the inpatient DM order; 4. continue the current Novolog coverage at bedtime; 5. monitor FSGs will follow. Inpatient Diabetes Orders Before Each Meal: Bolus Insulin: Novolog < 80 mg/dl: no coverage 80-100 mg/dl: 9 units 101-120 mg/dl: 9 units 121-150 mg/dl: 9 units 151-200 mg/dl: 11 units 201-250 mg/dl: 13 units 251-300 mg/dl: 15 units 301-350 mg/dl: 17 units 351-400 mg/dl: 19 units > 400 mg/dl: 20 units Subjective Subjective: His glucose level has been over 300. Objective Last 24 Hrs of Vital Signs/I&O Vital Signs Date Time Temp Pulse Resp B/P B/P Pulse O2 O2 Flow FiO2 Mean Ox Delivery Rate 07/20 0856 95 Nasal 2.0L Cannula 07/20 0802 73 112/07/20 0802 73 /07/20 0800 Nasal 2.0L Cannula 07/20 0620 98.2 73 18 112/68 96 Nasal Cannula 07/20 0033 78 96 07/20 0000 Nasal 2.0L Cannula 07/19 2221 98.3 66 20 118/60 97 07/19 2134 73 96 07/19 210 66 118/60 07/19 210 66 118/60 07/19 210 98.3 66 20 118/60 07/19 1910 96 Nasal 2.0L Cannula 07/19 1600 Nasal 2.0L Cannula 07/19 1333 98.0 72 20 110/60 98 Nasal 2.0L Cannula Intake & Output 07/20 1600 07/20 0800 07/20 0000 Intake Total 500 480 480 Output Total 225 900 900 Balance 275 -420 -420 Intake, Oral 500 480 480 Output, Urine 225 900 900 Findings Pertinent Lab/Abimael Results: Laboratory Tests 07/20 07/19 0615 2350 Chemistry Sodium (137 - 145 mmol/L) 131 L Potassium (3.5 - 5.1 mmol/L) 4.4 Chloride (98 - 107 mmol/L) 96 L Carbon Dioxide (22 - 30 mmol/L) 27 Anion Gap (5 - 16) 8 BUN (9 - 20 mg/dL) 39 H Creatinine (0.7 - 1.2 mg/dL) 1.4 H Estimated GFR (>60 ml/min) 50 L BUN/Creatinine Ratio (7 - 25 %) 27.9 H Hematology CBC w Diff NO MAN DIFF REQ WBC (4.8 - 10.8 /CUMM) 8.6 RBC (4.70 - 6.10 /CUMM) 3.79 L Hgb (14.0 - 18.0 G/DL) 12.6 L Hct (42 - 52 %) 38.0 L MCV (80.0 - 94.0 FL) 100.1 H MCH (27.0 - 31.0 PG) 33.3 H MCHC (33.0 - 37.0 G/DL) 33.2 RDW (11.5 - 14.5 %) 15.6 H Plt Count (130 - 400 /CUMM) 118 L MPV (7.4 - 10.4 FL) 9.3 Gran % (42.2 - 75.2 %) 85.0 H Lymphocytes % (20.5 - 51.1 %) 7.7 L Monocytes % (1.7 - 9.3 %) 7.2 Eosinophils % (0 - 5 %) 0 Basophils % (0.0 - 2.0 %) 0.1 Absolute Granulocytes (1.4 - 6.5 /CUMM) 7.3 H Absolute Lymphocytes (1.2 - 3.4 /CUMM) 0.7 L Absolute Monocytes (0.10 - 0.60 /CUMM) 0.6 Absolute Eosinophils (0.0 - 0.7 /CUMM) 0 Absolute Basophils (0.0 - 0.2 /CUMM) 0 Urines Urine Osmolality (300 - 1000 MOSM/KG) 699 Ur Random Creatinine (mg/dL) 64.3 Ur Random Sodium (30 - 90 mmol/L) 25 L Ur Random Potassium (mmol/L) 28.4 Fraction Sodium Excret (<1% %) 0.4
--- NOTE | 2017-07-20 11:49 | PN- Cardiology ---
Subjective Subjective: Resting comfortably but does feel some weakness. Reports ambulating without any dizziness or chest pain. Objective Vital Signs and I&Os Vital Signs Date Time Temp Pulse Resp B/P B/P Pulse O2 O2 Flow FiO2 Mean Ox Delivery Rate 07/20 0856 95 Nasal 2.0L Cannula 07/20 0802 73 112/68 07/20 0802 73 112/68 07/20 0800 Nasal 2.0L Cannula 07/20 0620 98.2 73 18 112/68 96 Nasal Cannula 07/20 0033 78 96 07/20 0000 Nasal 2.0L Cannula 07/19 2221 98.3 66 20 118/60 97 07/19 2134 73 96 07/19 2107 66 118/60 07/19 2107 66 118/60 07/19 2106 98.3 66 20 118/60 07/19 1910 96 Nasal 2.0L Cannula 07/19 1600 Nasal 2.0L Cannula 07/19 1333 98.0 72 20 110/60 98 Nasal 2.0L Cannula Intake & Output 07/20 1600 07/20 0800 07/20 0000 07/19 1600 07/19 0800 07/19 0000 Intake Total 480 480 480 60 480 Output Total 900 358 009 1669 400 Balance -420 -420 280 -1065 80 Intake, Oral 480 480 480 60 480 Number 0 Bowel Movements Output, Urine 900 395 066 3920 400 Patient 218 lb Weight Physical Exam: General: no apparent distress. Alert. Eyes: No obvious scleral icterus. HEENT: No jugular venous distention or abnormal jugular venous pulsations. Cardiovascular: Normal intensity S1/S2. Regular. ICD noted Respiratory: Lungs clear to auscultation bilaterally. Abdomen: Soft, nontender with no guarding or rebound tenderness. Musculoskeletal: No clubbing or cyanosis noted Skin: warm Neurologic: No gross focal deficits noted. Current Medications: Current Medications Sig/Penny Start time Last Medication Dose Route Stop Time Status Admin Acetaminophen 650 MG Q6P PRN 07/17 1530 AC PO Albuterol Sulfate 3 ML BID 07/18 1056 AC 07/20 INH 0856 Aspirin 81 MG DAILY 07/18 0900 AC 07/20 PO 0801 Atorvastatin Calcium 40 MG DAILY@1700 07/17 1700 AC 07/19 PO 1701 Budesonide/ 2 PUF BID 07/17 2100 AC 07/20 Formoterol Fumarate INH 0802 Carvedilol 6.25 MG BID 07/17 2099 AC 07/20 PO 0802 Clopidogrel Bisulfate 75 MG DAILY 07/18 09 AC 07/20 PO 0802 Heparin Sodium 5,000 UNIT Q8 07/18 06 AC 07/20 (Porcine) SC 0518 Insulin Aspart 0 TIDAC 07/18 08 AC 07/20 SC 0801 Insulin Aspart 0 AT BEDTIME 07/17 2100 AC 07/19 SC 211 Insulin Detemir 25 UNITS DAILY 07/20 09 AC 07/20 SC 08 Insulin Detemir 15 UNITS DAILY 07/18 0900 DC 07/20 SC 0800 Isosorbide 60 MG DAILY 07/18 09 DC 07/19 Mononitrate PO 0824 Levothyroxine Sodium 0.1 MG DAILY AC 07/18 0700 AC 07/20 PO 0517 Lidocaine 15 ML BID 07/18 0900 AC 07/20 PO 0801 Nitroglycerin 0.4 MG EVERY 5 MIN PRN 07/17 1615 AC Nystatin 5 ML 4 TIMES/DAY 07/17 1458 AC 07/20 PO 0801 Omeprazole 40 MG DAILY AC 07/18 0700 AC 07/20 PO 0517 Patient Medication 1 ED ONE ONE 07/20 1115 DC Teaching ED 07/20 1116 Prednisone 40 MG DAILY 07/19 0900 AC 07/20 PO 0802 Ranolazine 500 MG BID 07/17 2100 AC 07/20 PO 0802 Sertraline HCl 50 MG DAILY 07/18 09 AC 07/20 PO 0801 Tamsulosin HCl 0.4 MG AT BEDTIME 07/17 2100 AC 07/19 PO 2107 Tiotropium [place] 1 PUF DAILY 07/17 1607 AC 07/20 INH 0802 Results Last 48 Hrs of Labs/Mics: Laboratory Tests 07/20/1715: Anion Gap 8, Estimated GFR 50 L, BUN/Creatinine Ratio 27.9 H, CBC w Diff NO MAN DIFF REQ, RBC 3.79 L, MCV 100.1 H, MCH 33.3 H, MCHC 33.2, RDW 15.6 H, MPV 9.3, Gran % 85.0 H, Lymphocytes % 7.7 L, Monocytes % 7.2, Eosinophils % 0, Basophils % 0.1, Absolute Granulocytes 7.3 H, Absolute Lymphocytes 0.7 L, Absolute Monocytes 0.6, Absolute Eosinophils 0, Absolute Basophils 0 07/19/17 2350: Urine Osmolality 699, Ur Random Creatinine 64.3, Ur Random Sodium 25 L, Ur Random Potassium 28.4, Fraction Sodium Excret 0.4 07/19/17 0631: Anion Gap 9, Estimated GFR 50 L, BUN/Creatinine Ratio 30.0 H, Serum Osmolality 295, Cortisol AM Sample 5.4, CBC w Diff MAN DIFF ORDERED, RBC 3.73 L, MCV 99.1 H, MCH 33.3 H, MCHC 33.6, RDW 15.6 H, MPV 9.3, Gran % 86.9 H, Lymphocytes % 6.7 L, Monocytes % 6.4, Eosinophils % 0, Basophils % 0, Absolute Granulocytes 8.1 H, Absolute Lymphocytes 0.6 L, Absolute Monocytes 0.6, Absolute Eosinophils 0, Absolute Basophils 0, Platelet Estimate DECREASED, Poikilocytosis 1+, Anisocytosis 1+, Ovalocytes 1+, Melchor Cells 1+ Recent Imaging Studies: Not on telemetry Assessment/Plan Assessment/Plan 1. Hyperglycemia with prednisone use 2. Ischemic cardiomyopathy with prior CABG/PCI 3. AICD in situ 4. Abdominal aortic aneurysm status post prior EVAR 5. Aortic stenosis 6. Small cell lung CA 7. Hypothyroidism 8. Not on ZULAY inhibitor per reoprt due to CKD with hyperkalemia Patient is doing well and blood pressure appears stable. He appears euvolemic on exam. Continue dual antiplatelet and statin therapy. Continue to monitor orthostatics but he was able to ambulate well today without any dizziness. Continue on the carvedilol as blood pressure tolerates. Brady Arce MD [facility] Continue telemetry? Not applicable
[2017-07-20 14:07] VITALS: BP 100/58
[2017-07-20 22:18] VITALS: BP 106/66
[2017-07-21 06:00] VITALS: BP 102/60
--- NOTE | 2017-07-21 08:00 | PN- Housestaff ---
Estuardo Mariano MD,[facility] 07/21/17 0800: Subjective Follow-up For: Oral thrush Diabetes mellitus Dehydration Subjective: Patient visited today, was sitting at the bedside comfortably in no acute distress, was alert and oriented. No fever or chills, no shortness of breathing, no chest pain, no other events. Patient was instructed to check her sugars himself. This morning decreased sugars and are in 100s. Patient will be instructed to follow in outpatient with cigarette machine operator. Review of Systems Constitutional: Reports: see HPI. Objective Last 24 Hrs of Vital Signs/I&O Vital Signs Date Time Temp Pulse Resp B/P B/P Pulse O2 O2 Flow FiO2 Mean Ox Delivery Rate 07/21 08 98 Nasal 2.0L Cannula 07/21 0600 98.0 58 20 102/60 96 Nasal Cannula 07/21 0012 94 07/21 0000 Nasal 2.0L Cannula 07/20 2253 78 92 07/20 2218 98.1 73 20 106/66 96 Nasal 2.0L Cannula 07/20 213 73 106/66 07/20 2128 73 106/66 07/20 2129 73 106/66 07/20 2004 97 Nasal 2.0L Cannula 07/20 1600 Nasal 2.0L Cannula 07/20 1407 97.9 72 20 100/58 97 07/20 0856 95 Nasal 2.0L Cannula Intake & Output 07/21 1600 07/21 0800 07/21 0000 Intake Total 120 120 Output Total Balance 120 120 Intake, Oral 120 120 Physical Exam General Appearance: Alert, Oriented X3, Cooperative, No Acute Distress Skin Temp/Moisture Exam: Warm/Dry Sepsis Skin Exam (color): Normal for Ethnicity HEENT: Atraumatic, EOMI Cardiovascular: Normal S1, Normal S2 Lungs: Normal Air Movement Current Medications: Current Medications Sig/Penny Start time Last Medication Dose Route Stop Time Status Admin Acetaminophen 650 MG Q6P PRN 07/17 1530 AC PO Albuterol Sulfate 3 ML BID 07/18 1056 AC 07/21 INH 0821 Aspirin 81 MG DAILY 07/18 0900 AC 07/20 PO 0801 Atorvastatin Calcium 40 MG DAILY@1700 07/17 1700 AC 07/20 PO 1757 Budesonide/ 2 PUF BID 07/17 2099 AC 07/20 Formoterol Fumarate INH 213 Carvedilol 6.25 MG BID 07/17 2100 AC 07/20 PO 2130 Clopidogrel Bisulfate 75 MG DAILY 07/18 0900 AC 07/20 PO 0802 Heparin Sodium 5,000 UNIT Q8 07/18 0600 AC 07/21 (Porcine) SC 0642 Insulin Aspart 0 TIDAC 07/18 0800 AC 07/20 SC 1710 Insulin Aspart 0 AT BEDTIME 07/17 2100 AC 07/20 SC 2128 Insulin Detemir 25 UNITS DAILY 07/20 0900 AC 07/20 SC 0817 Levothyroxine Sodium 0.1 MG DAILY AC 07/18 0700 AC 07/20 PO 0517 Lidocaine 15 ML BID 07/18 0900 AC 07/20 PO 2132 Nitroglycerin 0.4 MG EVERY 5 MIN PRN 07/17 1615 AC SL Nystatin 5 ML 4 TIMES/DAY 07/17 1458 AC 07/20 PO 2135 Omeprazole 40 MG DAILY AC 07/18 0700 AC 07/21 PO 0642 Patient Medication 1 ED ONE ONE 07/20 1115 DC 07/20 Teaching ED 07/20 1116 1146 Prednisone 40 MG DAILY 07/19 0900 AC 07/20 PO 0802 Ranolazine 500 MG BID 07/17 2100 AC 07/20 PO 2129 Sertraline HCl 50 MG DAILY 07/18 09 AC 07/20 PO 0801 Tamsulosin HCl 0.4 MG AT BEDTIME 07/17 2100 AC 07/20 PO 2129 Tiotropium [place] 1 PUF DAILY 07/17 1607 AC 07/20 INH 0802 Assessment/Plan Assessment: Mr Almonte is a 76 [id number] with a PMH significant for 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 and on prednisone therapy, COPD on 2 L at home, CAD s/p CABG and PCI with stend placement, ischemic cardiomyopathy with EF of 20 -25% status post AICD, CKD, hypothyroidism, aortic stenosis, peripheral arterial disease, PATTI on CPAP who came to emergency room with chief complaint of sore throat eating food and dysgeusia/ageusia Vital signs in ED was notable for low blood pressure 74/49, heart rate 66, no fever 96% on 2 L Labs were notable for WBC 13.1, MCV 99, sodium 129, potassium 4.6, glucose 617, creatinine 1.9 baseline is 1.6, CL 88 , UA showed glucose more than 1000 Patient received 1-1/2 L of normal saline in the ED, 10 units of insulin Novolin , 1 dose of clotrimazole 10 mg Blood pressure increased to 111/58 after hydration CXR 1. No active cardiopulmonary disease. There is no significant change. 2. There is stable moderate plate-like scar/subsegmental atelectasis at the left base. Patient was admitted to floor for management of following conditions: - Hyperglycemia, DM dehydration.CHF IV hydration were administered cautiously considering low ejection fraction, patient had low blood pressures as well. patient was placed on insulin injections and accucheks. in the following days the dose of insulin was adjusted till blood sugar was properly controlled. Patient was stable to be discharged with recommendations to follow Dr Martinez in outpatient. Patient was also instructed regarding diabetes nutrition. - Oral trush most likely related to chronic steroid use. responded quickly to oral nystatin. - Chronic medical conditions: CHF with low EF of 20-25% with AICD, CAD on dual antiplatelet therapy, small cell cancer status post radiation now on prednisone therapy for pneumonitis, COPD on 2 L, hypothyroid Cardiology service was consulted, it was recommended to hold imdure, lasix was held due to low blood pressure, patient was instructed to follow with elementary assistant teacher within 1 week. Patient will also continue to monitor blood pressure by visiting nurse at home. Patient's oncologist was contacted. It was decided to start to taper prednisone by 10 mg every 3 days. We continued rest of home medications: levothyroxine, aspirin, Plavix, Ranexa, tamsulosin, Lipitor, Continue Coreg, inhalers and TRC nebs. we continued carvedilol as blood pressure allowed. Patient was stable to be discharged. Problem List: 1. CHF (congestive heart failure) 2. Diabetes mellitus Pain Ratin Pain Location: none Pain Goal: Pain 4 or less Pain Plan: Continue current plan Tomorrow's Labs & Rationales: None Wale Almeida MD 07/21/17 1025: Attending MD Review Statement Attending Statement Attending Statement: examined this patient, discuss w/resident/PA/LABORATORY TESTER, agreed w/resident/PA/LABORATORY TESTER, reviewed EMR data (avail), discussed with nursing, discussed with case mgmt, amended to note Attending Assessment/Plan: Patient seen and examined. Resting comfortably not in any acute distress. No issues with her sister. He is alert and oriented 3 and conversant appropriately. Denies any dizziness or lightheadedness. Ambulating freely without need for assistance per nursing staff. Blood pressure has been stable overnight. He is tolerating his beta-nya therapy with Coreg. We continue to hold his diuretic therapy due to his borderline blood pressure. He remains clinically euvolemic with no evidence of volume overload. Patient is to follow- up with his cardiology service as an outpatient. Determination for need of resuming diuretic therapy will be made by his elementary assistant teacher in the outpatient setting. his blood glucose level is better controlled this morning on insulin regimen recommended by the reinforced the need toEndo service. He will be discharged home on this regimen. Insulin teaching has been done by nursing staff. We reinforced the need to be aware of symptoms of low blood glucose and what to do when his glucose levels are low. He verbalized understanding. His platelet counts are stable. Etiology of his thrombocytopenia is unknown. This will be monitored and followed up by his primary care provider. He is medically stable to be discharged home today.
--- NOTE | 2017-07-21 08:30 | PN- Diabetes ---
Assessment/Plan Diabetes Assessment: 76 [id number] with a PMH significant for small cell lung carcinoma status post radiation and on prednisone therapy ( prednisone 50 mg daily since 2017), COPD on 2 L at home, CAD s/p CABG and PCI with stend placement, ischemic cardiomyopathy with EF of 20-25% status post AICD, CKD, hypothyroidism, aortic stenosis, peripheral arterial disease, PATTI on CPAP presented to emergency room with chief complaint of sore throat eating food and dysgeusia. He was newly diagnosed with diabetes with glucose of of 617. His HbA1c was 12.5%. The team touched base with his oncologist and patient will be on prednisone taper. Starting 07/19/2017, prednisone was decreased to 40 mg daily. Levemir was increased to 25 units once a day; Novolog coverage before meals was adjusted again ( FSG 80-150, 9 units; 151-200, 11 units, etc). In addition, he is on another Novolog coverage at bedtime. His diet was changed to consistent carbohydrates 1 diet. His FSGs were 350, 204, 389, 317 and 131. Plan: continue the current insulin regimen for now; monitor FSGs if he is medically stable for discharge, the discharge plan for DM will be ---- Levemir 25 units daily in the morning; ----Novolog coverage before meals --- same scale as inpatient; ----no Novolog coverage at bedtime; ----monitor FSGs x 4 times a day; ----f/u in office after discharge; ----call office if there are any questions. Subjective Subjective: He didn't have special complaints this morning. His FSG was 131 this morning. Objective Last 24 Hrs of Vital Signs/I&O Vital Signs Date Time Temp Pulse Resp B/P B/P Pulse O2 O2 Flow FiO2 Mean Ox Delivery Rate 07/21 0821 98 Nasal 2.0L Cannula 07/21 0600 98.0 58 20 102/60 96 Nasal Cannula 07/21 0012 94 07/21 0000 Nasal 2.0L Cannula 07/203 78 92 07/20 2217 98.1 73 20 106/66 96 Nasal 2.0L Cannula 07/20 2129 73 106/66 07/20 2128 73 106/07/20 73 10607/20 97 Nasal 2.0L Cannula 07/21 1599 Nasal 2.0L Cannula 07/20 1407 97.9 72 20 100/58 97 07/20 0856 95 Nasal 2.0L Cannula Intake & Output 07/21 0800 07/21 0000 Intake Total 120 120 Output Total Balance 120 120 Intake, Oral 120 120
[2017-07-21] MEDS ORDERED: NOVOLOG FL100 UNIT/1 SC ×5 (08:37→10:42)
[2017-07-21] MEDS ORDERED: LEVEMIR FL100 UNIT/1 SC ×3 (08:37→09:49)
[2017-07-21] MEDS ORDERED: PREDNISONE10 M2 PO ×3 (08:37→10:42)
--- NOTE | 2017-07-21 09:16 | Patient Discharge Instructions ---
Discharge Instructions General Discharge Information You were seen/treated for: Which is mellitus Dehydration Watch for these problems: Severe dizziness, weakness, nausea vomiting, increased urination, chest pain, shortness of breathing or worsening of any symptoms Special Instructions: Please follow with your PCP within one week of discharge. Please note, several of your cardiac medications are changed due to low blood pressure. Please follow with your medical surgery nurse next week as you need to be evaluated again to resume these medicatoins. Please follow with your trainer, Dr. henderson within 1 week of discharge regarding management of your diabetes mellitus. Please check your blood sugars regularly, please use your medications as ordered , please come back to hospital if symptoms worsen. Diet Continue normal diet: No Recommended Diet: Diabetic Activity Full Activity/No Limits: No Activity Self Limited: Yes Acute Coronary Syndrome Inclusion Criteria At DC or during hospital stay patient has or had the following: ACS DIAGNOSIS No Discharge Core Measures Meds if any: Prescribed or Continued at Discharge Meds if any: NOT Prescribed or Continued at Discharge Congestive Heart Failure Inclusion Criteria At DC or during hospital stay patient has or had the following: CHF DIAGNOSIS No (Chronic ) Discharge Core Measures Meds if any: Prescribed or Continued at Discharge Meds if any: NOT Prescribed or Continued at Discharge Cerebrovascular accident Inclusion Criteria At DC or during hospital stay patient has or had the following: CVA/TIA Diagnosis No Discharge Core Measures Meds if any: Prescribed or Continued at Discharge Meds if any: NOT Prescribed or Continued at Discharge Venous thromboembolism Inclusion Criteria VTE Diagnosis No VTE Type NONE VTE Confirmed by (Test) NONE Discharge Core Measures - Per Current guidelines, there needs to be overlap - treatment for the first 5 days of Warfarin therapy. - If discharged on Warfarin prior to 5 days of - overlap therapy, the patient will need to be - assessed for post discharge needs including - *Post discharge parental anticoagulation - *Warfarin and/or parental anticoagulation education - *Follow up date to check INR post discharge At least 5 days overlap therapy as Inpatient No Meds if any: Prescribed or Continued at Discharge Note: Overlap Therapy is Warfarin and Anticoagulant Meds if any: NOT Prescribed or Continued at Discharge
--- NOTE | 2017-07-21 10:55 | PN- Cardiology ---
Subjective Subjective: No new complaints. Still able to ambulate with no dizziness. Objective Vital Signs and I&Os Vital Signs Date Time Temp Pulse Resp B/P B/P Pulse O2 O2 Flow FiO2 Mean Ox Delivery Rate 07/21 1025 58 102/66 07/21 1025 58 102/66 / 0821 98 Nasal 2.0L Cannula 07/21 0600 98.0 58 20 102/60 96 Nasal Cannula 07/21 0012 94 / 0000 Nasal 2.0L Cannula 07/20 2253 78 92 / 2218 98.1 73 20 106/66 96 Nasal 2.0L Cannula 07/20 2130 73 106/66 07/20 2129 73 106/66 07/20 2129 73 106/66 07/20 2004 97 Nasal 2.0L Cannula 07/20 1600 Nasal 2.0L Cannula 07/20 1407 97.9 72 20 100/58 97 Intake & Output 07/21 1600 07/21 0800 05/ 0000 07/20 1600 07/20 0800 07/20 0000 Intake Total 510 656 1141 480 480 Output Total 400 900 900 Balance 120 120 660 -420 -420 Intake, Oral 060 465 6992 480 480 Number 0 Bowel Movements Output, Urine 400 900 900 Physical Exam: General: no apparent distress. Alert. Eyes: No obvious scleral icterus. HEENT: No jugular venous distention or abnormal jugular venous pulsations. Cardiovascular: Normal intensity S1/S2. Regular. ICD noted Respiratory: Lungs clear to auscultation bilaterally. Abdomen: Soft, nontender with no guarding or rebound tenderness. Musculoskeletal: No clubbing or cyanosis noted Skin: warm Neurologic: No gross focal deficits noted. Current Medications: Current Medications Sig/Penny Start time Last Medication Dose Route Stop Time Status Admin Acetaminophen 650 MG Q6P PRN 07/17 1530 AC PO Albuterol Sulfate 3 ML BID 07/18 1056 AC 07/21 INH 0821 Aspirin 81 MG DAILY 07/18 09 AC 07/20 PO 0801 Atorvastatin Calcium 40 MG DAILY@1700 07/17 1700 AC 07/20 PO 1757 Budesonide/ 2 PUF BID 07/17 2100 AC 07/21 Formoterol Fumarate INH 1023 Carvedilol 6.25 MG BID 07/17 2100 AC 07/21 PO 1025 Clopidogrel Bisulfate 75 MG DAILY 07/18 09 AC 07/20 PO 0802 Heparin Sodium 5,000 UNIT Q8 07/18 06 AC 07/21 (Porcine) [place] 0642 Insulin Aspart 0 TIDAC 07/18 08 AC 07/21 SC 1022 Insulin Aspart 0 AT BEDTIME 07/17 2100 AC 07/20 SC 2128 Insulin Detemir 25 UNITS DAILY 07/20 09 AC 07/21 SC 1022 Levothyroxine Sodium 0.1 MG DAILY AC 07/18 07 AC 07/21 PO 1026 Lidocaine 15 ML BID 07/18 09 AC 07/21 PO 1023 Nitroglycerin 0.4 MG EVERY 5 MIN PRN 07/17 1615 AC Nystatin 5 ML 4 TIMES/DAY 07/17 1458 AC 07/21 PO 1023 Omeprazole 40 MG DAILY AC 07/18 07 AC 07/21 PO 0642 Patient Medication 1 ED ONE ONE 07/20 1115 DC 07/20 Teaching ED 07/20 1116 1146 Prednisone 40 MG DAILY 07/19 09 AC 07/21 PO 1025 Ranolazine 500 MG BID 07/17 2100 AC 07/21 PO 1025 Sertraline HCl 50 MG DAILY 07/18 09 AC 07/21 PO 1025 Tamsulosin HCl 0.4 MG AT BEDTIME 07/17 2100 AC 07/20 PO 2129 Tiotropium [place] 1 PUF DAILY 07/17 1607 AC 07/21 INH 1023 Results Last 48 Hrs of Labs/Mics: Laboratory Tests 07/20/17 0615: Anion Gap 8, Estimated GFR 50 L, BUN/Creatinine Ratio 27.9 H, CBC w Diff NO MAN DIFF REQ, RBC 3.79 L, MCV 100.1 H, MCH 33.3 H, MCHC 33.2, RDW 15.6 H, MPV 9.3, Gran % 85.0 H, Lymphocytes % 7.7 L, Monocytes % 7.2, Eosinophils % 0, Basophils % 0.1, Absolute Granulocytes 7.3 H, Absolute Lymphocytes 0.7 L, Absolute Monocytes 0.6, Absolute Eosinophils 0, Absolute Basophils 0 07/19/17 2350: Urine Osmolality 699, Ur Random Creatinine 64.3, Ur Random Sodium 25 L, Ur Random Potassium 28.4, Fraction Sodium Excret 0.4 Recent Imaging Studies: Not on telemetry Assessment/Plan Assessment/Plan 1. Hyperglycemia with prednisone use 2. Ischemic cardiomyopathy with prior CABG/PCI 3. AICD in situ 4. Abdominal aortic aneurysm status post prior EVAR 5. Aortic stenosis 6. Small cell lung CA 7. Hypothyroidism 8. Not on ZULAY inhibitor per reoprt due to CKD with hyperkalemia Doing well and hyperglycemia has improved. Recommend resuming outpatient low- dose Lasix on discharge. No recurrent hyperkalemia on yesterday's metabolic panel. Continue on the carvedilol as blood pressure tolerates. Continue dual antiplatelet and statin therapy. Brady Arce MD [facility] Continue telemetry? Not applicable
--- NOTE | 2017-07-21 11:49 | Discharge Summary ---
Visit Information Visit Dates Admission Date: 07/17/17 Discharge Date: 07/22/17 Hospital Course Course Attending Physician: Juan Pablo LUND,[facility] Primary Care Physician: Clyde LUND,[facility] Course: Mr Almonte is a 76 [id number] with a PMH significant for 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 and on prednisone therapy, COPD on 2 L at home, CAD s/p CABG and PCI with stend placement, ischemic cardiomyopathy with EF of 20 -25% status post AICD, CKD, hypothyroidism, aortic stenosis, peripheral arterial disease, PATTI on CPAP who came to emergency room with chief complaint of sore throat eating food and dysgeusia/ageusia Vital signs in ED was notable for low blood pressure 74/49, heart rate 66, no fever 96% on 2 L Labs were notable for WBC 13.1, MCV 99, sodium 129, potassium 4.6, glucose 617, creatinine 1.9 baseline is 1.6, CL 88 , UA showed glucose more than 1000 Patient received 1-1/2 L of normal saline in the ED, 10 units of insulin Novolin , 1 dose of clotrimazole 10 mg Blood pressure increased to 111/58 after hydration CXR 1. No active cardiopulmonary disease. There is no significant change. 2. There is stable moderate plate-like scar/subsegmental atelectasis at the left base. Patient was admitted to Gm floor for management of following conditions: - Hyperglycemia, DM dehydration.CHF IV hydration were administered cautiously considering low ejection fraction, patient had low blood pressures as well. patient was placed on insulin injections and accucheks. in the following days the dose of insulin was adjusted till blood sugar was properly controlled. Patient was stable to be discharged with recommendations to follow Dr Henderson in outpatient. Patient was also instructed regarding diabetes nutrition. - Oral trush most likely related to chronic steroid use. responded quickly to oral nystatin. - Chronic medical conditions: CHF with low EF of 20-25% with AICD, CAD on dual antiplatelet therapy, small cell cancer status post radiation now on prednisone therapy for pneumonitis, COPD on 2 L, hypothyroid Cardiology service was consulted, it was recommended to hold imdure, lasix was held due to low blood pressure, patient was instructed to follow with word processor technician within 1 week. Patient will also continue to monitor blood pressure by visiting nurse at home. Patient's oncologist was contacted. It was decided to start to taper prednisone by 10 mg every 3 days. We continued rest of home medications: levothyroxine, aspirin, Plavix, Ranexa, tamsulosin, Lipitor, Continue Coreg, inhalers and TRC nebs. we continued carvedilol as blood pressure allowed. Low dose lasix was also started on the day before discharge, blood pressure was monitored, patient tolerated. Patient was stable to be discharged. Allergies: Coded Allergies: NO KNOWN ALLERGIES (NONE 05/10/17) Disposition Summary Disposition Principal Diagnosis: DM Additional Diagnosis: Oral trush Discharge Disposition: home health services Discharge Instructions General Discharge Information Code Status: Full Code Patient's Diet: Diabetic Patient's Activity: As tolerated Follow-Up Instructions/Appts: Please follow with your PCP within one week of discharge. Please note, several of your cardiac medications are changed due to low blood pressure. Please follow with your word processor technician next week as you need to be evaluated again to resume these medicatoins. Please follow with your cloth shrinking machine operator, Dr. henderson within 1 week of discharge regarding management of your diabetes mellitus. Please check your blood sugars regularly, please use your medications as ordered , please come back to hospital if symptoms worsen. Medications at Discharge Discharge Medications: Stop taking the following medications: Isosorbide Mononitrate (Isosorbide Mononitrate ER) 60 MG TAB.ER.24H ORAL DAILY Qty = 90 Furosemide (Lasix) 20 MG TABLET ORAL DAILY Prednisone (Prednisone) 10 MG TABLET ORAL DAILY Continue taking these medications: Aspirin (Aspirin*) 81 MG TAB.CHEW 1 Tablet ORAL DAILY Qty = 30 Comments: Last Taken:05/11/17 Time: 9:42A.M Atorvastatin Calcium (Lipitor) 40 MG TABLET 1 Tablet ORAL DAILY Qty = 30 Comments: Last Taken 07/21/17 Time:4:37 PM Ranolazine (Ranexa) 500 MG TAB.ER.12H 1 Tablet ORAL TWICE DAILY Qty = 30 Comments: Last Taken:07/22/17 Time: 8:16 AM Clopidogrel Bisulfate (Clopidogrel) 75 MG TABLET 1 Tablet ORAL DAILY Qty = 90 Comments: Last Taken: 07/22/17 Time: 8:16 AM Acetaminophen (Acetaminophen) 325 MG CAPSULE 1 Capsule ORAL as needed for PAIN Comments: Last Taken:NOT GIVEN THIS ADMISSION Albuterol Sulfate (Proair Hfa) 90 MCG HFA.AER.AD 2 Puff Inhale through mouth Every 4 hours Qty = 1 Comments: NOT GIVEN THIS ADMISSION Tamsulosin HCl (Flomax) 0.4 MG CAP.ER.24H 1 Capsule ORAL TAKE AT BEDTIME Qty = 30 Instructions: Please take at bed time to avoid low blood pressure during the day. Comments: Last Taken: 07/21/17 Time: 8:20 PM Tiotropium [place] (Spiriva) 18 MCG CAP.W.DEV 1 Capsule Inhale through mouth DAILY Qty = 30 Comments: Last Taken: 07/22/17 Time:8:17 AM Budesonide/Formoterol Fumarate (Symbicort 160-4.5 Mcg Inhaler) 160 MCG-4.5 MCG/ ACTUATION HFA.AER.AD 2 Puff Inhale through mouth TWICE DAILY Qty = 10 Comments: Last Taken: 07/22/17 Time: 8:17 AM Levothyroxine Sodium (Levothyroxine Sodium) 100 MCG TABLET 1 Tablet ORAL DAILY Qty = 90 Comments: Last Taken:07/22/17 Time:5:30 AM Nitroglycerin (Nitrostat) 0.4 MG TAB.SUBL 1 Tablet SUBLINGUAL As Directed as needed for CHEST PAIN Instructions: 1st sign of attack; may repeat every 5 minutes until relief; if pain persists after 3 tablets in 15 minutes, prompt medical att Comments: NOT GIVEN THIS ADMISSION Carvedilol (Carvedilol) 6.25 MG TABLET 1 Tablet ORAL TWICE DAILY Comments: Last Taken:07/22/17 Time:8:14 AM Omeprazole (Omeprazole) 40 MG CAPSULE.DR 1 Capsule ORAL DAILY Qty = 30 Comments: Last Taken:07/22/17 Time:5:30 AM Sertraline HCl (Sertraline HCl) 50 MG TABLET 1 Tablet ORAL DAILY Qty = 30 Comments: Last Taken:07/22/17 Time:8:14 AM Start taking the following new medications: Prednisone (Prednisone) 10 MG TABLET 0 ORAL SEE INSTRUCTIONS Qty = 10 No Refills Instructions: please take:. 3 pills for 3 days 2 pills for 3 days 1 pill for 3 days and then disscuss with your oncologist and PCP regarding stopping Comments: please take: 3 pills for 3 days 2 pills for 3 days 1 pill for 3 days and then disscuss with your oncologist and PCP regarding stopping Insulin Aspart, Recombinant (Novolog Flexpen) 100 UNIT/ML INSULN.PEN 0 Inject into fatty tissue SEE INSTRUCTIONS Qty = 30 No Refills Instructions: PLEASE check your blood sugar 3 times daily before meals and at bedtime and . FOLLOW 80 - 150 MG/DL 9 UNITS 151- 200 MG/DL 11 UNITS 201- 250 MG/DL 13 UNITS 251- 300 MG/DL 15 UNITS 301- 350 MG/DL 17 UNITS 351 - 400MG/DL 19 UNITS >400 MG/DL 20 UNITS AND CALL YOUR DR. Furosemide (Lasix) 20 MG TABLET 10 Milligram ORAL DAILY Qty = 30 No Refills Instructions: . Insulin Detemir (Levemir Flextouch) 100 UNIT/ML (3 ML) INSULN.PEN 25 Units Inject into fatty tissue DAILY BEFORE BREAKFAST Qty = 30 No Refills Copies To: Clyde LUND,Clark Henderson MD,Michael Attending MD Review Statement Documenting Attending: Wale Almeida MD Other Findings: Discharge in stable condition
[2017-07-21 13:27] VITALS: BP 118/60
--- NOTE | 2017-07-21 17:14 | Event Note ---
Event Note Event Note: Situation Nursing called that patient doesn't want to leave Background Mr Almonte is a 76 [id number] with a PMH significant for 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 and on prednisone therapy, COPD on 2 L at home, CAD s/p CABG and PCI with stend placement, ischemic cardiomyopathy with EF of 20 -25% status post AICD, CKD, hypothyroidism, aortic stenosis, peripheral arterial disease, PATTI on CPAP who came to emergency room with chief complaint of sore throat eating food and dysgeusia/ageusia Patient was found to have diabetes mellitus which was considered to be exacerbated by prednisone intake. Patient was being instructed for the last 2 days for glucometer for today for insulin injection Assessment and plan Patient had some concerns regarding using glucometer and injecting insulin. I observed patient to check his blood sugar, patient is still not skillful to check blood sugar. It was considered not to be safe for discharge. We will keep patient in hospital for another day and continue educating him. Issue was discussed with attending.
[2017-07-21] MEDS ORDERED: LASIX20 M1 PO (17:35)
[2017-07-21 21:53] VITALS: BP 124/70
[2017-07-22 06:08] VITALS: BP 102/60
--- NOTE | 2017-07-22 07:10 | PN- Housestaff ---
Estuardo Mariano MD,[facility] 07/22/17 0710: Subjective Follow-up For: DM Subjective: Patient visited today, was sitting at bedside comfortably in no acute distress, was alert and oriented. We questioned regarding checking BS and administration of Ins, patient had understanding but it was decided patient would benefit from visiting nurse intially. No fever or chills, no shortness of breathing, no chest pain, no other events. Review of Systems Constitutional: Reports: see HPI. Objective Last 24 Hrs of Vital Signs/I&O Vital Signs Date Time Temp Pulse Resp B/P B/P Pulse O2 O2 Flow FiO2 Mean Ox Delivery Rate 07/22 0816 66 102/60 07/22 0814 66 102/60 07/22 0806 98 Nasal 2.0L Cannula 07/22 0800 Nasal 2.0L Cannula 07/22 0608 98.0 66 20 102/60 98 07/22 0000 Nasal 2.0L Cannula 07/21 2221 69 97 07/21 2153 97.9 81 20 124/70 98 07/21 2045 98 Nasal 2.0L Cannula 07/22 2019 97.9 81 20 124/70 07/21 2020 97.9 81 20 124/70 07/21 2019 97.9 81 20 124/70 07/21 1600 Nasal 2.0L Cannula 07/21 1327 97.9 73 18 118/60 96 Nasal 2.0L Cannula Intake & Output 07/22 1600 07/22 0800 07/22 0000 Intake Total 350 200 Output Total 300 Balance 350 -100 Intake, Oral 350 200 Output, Urine 300 Physical Exam General Appearance: Alert, Oriented X3, Cooperative, No Acute Distress Skin Temp/Moisture Exam: Warm/Dry Sepsis Skin Exam (color): Normal for Ethnicity HEENT: Atraumatic, EOMI Cardiovascular: Normal S1, Normal S2 Lungs: Normal Air Movement Abdomen: Soft, No Tenderness Current Medications: Current Medications Sig/Penny Start time Last Medication Dose Route Stop Time Status Admin Acetaminophen 650 MG Q6P PRN 07/17 1530 AC PO Albuterol Sulfate 3 ML BID 07/18 1056 AC 07/21 INH 2044 Aspirin 81 MG DAILY 07/18 0900 AC 07/22 PO 0814 Atorvastatin Calcium 40 MG DAILY@1700 07/17 1700 AC 07/21 PO 1637 Budesonide/ 2 PUF BID 07/17 2100 AC 07/22 Formoterol Fumarate INH 0817 Carvedilol 6.25 MG BID 07/17 2100 AC 07/22 PO 0814 Clopidogrel Bisulfate 75 MG DAILY 07/18 0900 AC 07/22 PO 0816 Furosemide 10 MG DAILY 07/21 1733 AC 07/22 PO 1016 Heparin Sodium 5,000 UNIT Q8 07/18 0600 AC 07/22 (Porcine) SC 0528 Insulin Aspart 0 TIDAC 07/18 0800 AC 07/22 SC 1135 Insulin Aspart 0 AT BEDTIME 07/17 2100 AC 07/21 SC 2045 Insulin Detemir 25 UNITS DAILY 07/20 0900 AC 07/22 SC 0815 Levothyroxine Sodium 0.1 MG DAILY AC 07/18 0700 AC 07/22 PO 0530 Lidocaine 15 ML BID 07/18 0900 AC 07/22 PO 0817 Nitroglycerin 0.4 MG EVERY 5 MIN PRN 07/17 1615 AC SL Nystatin 5 ML 4 TIMES/DAY 07/17 1458 DC 07/21 PO 1219 Omeprazole 40 MG DAILY AC 07/18 0700 AC 07/22 PO 0530 Patient Medication 1 ED ONE ONE 07/21 1215 DC 07/21 Teaching ED 07/21 1216 1438 Prednisone 30 MG DAILY 07/22 0900 AC 07/22 PO 1016 Prednisone 40 MG DAILY 07/19 0900 DC 07/21 PO 1025 Ranolazine 500 MG BID 07/17 2100 AC 07/22 PO 0816 Sertraline HCl 50 MG DAILY 07/18 0900 AC 07/22 PO 0814 Tamsulosin HCl 0.4 MG AT BEDTIME 07/17 2099 AC 07/21 PO 2020 Tiotropium [place] 1 PUF DAILY 07/17 1607 AC 07/22 INH 0817 Assessment/Plan Assessment: Mr Almonte is a 76 [id number] with a PMH significant for 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 and on prednisone therapy, COPD on 2 L at home, CAD s/p CABG and PCI with stend placement, ischemic cardiomyopathy with EF of 20 -25% status post AICD, CKD, hypothyroidism, aortic stenosis, peripheral arterial disease, PATTI on CPAP who came to emergency room with chief complaint of sore throat eating food and dysgeusia/ageusia Vital signs in ED was notable for low blood pressure 74/49, heart rate 66, no fever 96% on 2 L Labs were notable for WBC 13.1, MCV 99, sodium 129, potassium 4.6, glucose 617, creatinine 1.9 baseline is 1.6, CL 88 , UA showed glucose more than 1000 Patient received 1-1/2 L of normal saline in the ED, 10 units of insulin Novolin , 1 dose of clotrimazole 10 mg Blood pressure increased to 111/58 after hydration CXR 1. No active cardiopulmonary disease. There is no significant change. 2. There is stable moderate plate-like scar/subsegmental atelectasis at the left base. Patient was admitted to Gm floor for management of following conditions: - Hyperglycemia, DM dehydration.CHF IV hydration were administered cautiously considering low ejection fraction, patient had low blood pressures as well. patient was placed on insulin injections and accucheks. in the following days the dose of insulin was adjusted till blood sugar was properly controlled. Patient was stable to be discharged with recommendations to follow Dr Martinez in outpatient. Patient was also instructed regarding diabetes nutrition. - Oral trush most likely related to chronic steroid use. responded quickly to oral nystatin. - Chronic medical conditions: CHF with low EF of 20-25% with AICD, CAD on dual antiplatelet therapy, small cell cancer status post radiation now on prednisone therapy for pneumonitis, COPD on 2 L, hypothyroid Cardiology service was consulted, it was recommended to hold imdure, lasix was held due to low blood pressure, patient was instructed to follow with political aide within 1 week. Patient will also continue to monitor blood pressure by visiting nurse at home. Patient's oncologist was contacted. It was decided to start to taper prednisone by 10 mg every 3 days. We continued rest of home medications: levothyroxine, aspirin, Plavix, Ranexa, tamsulosin, Lipitor, Continue Coreg, inhalers and TRC nebs. we continued carvedilol as blood pressure allowed. Low dose lasix was also started on the day before discharge, blood pressure was monitored, patient tolerated. Patient was stable to be discharged. Problem List: 1. Diabetes mellitus Pain Ratin Pain Location: None Pain Goal: Pain 4 or less Pain Plan: Continue current plan Tomorrow's Labs & Rationales: None Wale Almeida MD 07/22/17 1216: Attending MD Review Statement Attending Statement Attending MD Statement: examined this patient, discuss w/resident/PA/CHILLING HOOD OPERATOR, agreed w/resident/PA/CHILLING HOOD OPERATOR, reviewed EMR data (avail), discussed with nursing, discussed with case mgmt, amended to note Attending Assessment/Plan: Patient seen and examined. Resting comfortably and not in any acute distress. He was scheduled for discharge yesterday however he had hesitation about checking his blood glucose levels and administering insulin. He has particular concerns about timing of his sliding scale coverage yesterday. He states that yesterday was the first time he was shown how to administer his sliding scale coverage. This morning he reports feeling more confident. He states that his will be unable to administer his insulin for him. Arrangements have been made with visiting nurse services to follow-up with the patient at home. She feels more comfortable being discharged today. He was observed checking his blood glucose levels and administering insulin by the nursing team. Visiting nurse services will continue reinforcement at home. Glucose levels were elevated improved from admission. He will follow-up with endocrinology service for further titration of his regimen as needed. Cardiology follow-up appreciated. Recommendations noted.
--- NOTE | 2017-07-22 08:07 | PN- Diabetes ---
Assessment/Plan Diabetes Assessment: 76 [id number] with a PMH significant for small cell lung carcinoma status post radiation and on prednisone therapy ( prednisone 50 mg daily since 2017), COPD on 2 L at home, CAD s/p CABG and PCI with stend placement, ischemic cardiomyopathy with EF of 20-25% status post AICD, CKD, hypothyroidism, aortic stenosis, peripheral arterial disease, PATTI on CPAP presented to emergency room with chief complaint of sore throat eating food and dysgeusia. He was newly diagnosed with diabetes with glucose of of 617. His HbA1c was 12.5%. The team touched base with his oncologist and patient will be on prednisone taper. Starting 07/19/2017, prednisone was decreased to 40 mg daily. Prednisone will be further decreased to 30 mg daily today. Levemir was increased to 25 units once a day; Novolog coverage before meals was adjusted again ( FSG 80-150, 9 units; 151-200, 11 units, etc). In addition, he is on another Novolog coverage at bedtime. His diet was changed to consistent carbohydrates 1 diet. His FSGs were 302, 305, 230, 306 and 226. Plan: continue the current insulin regimen for now; monitor FSGs if he is medically stable for discharge, the discharge plan for DM will be ---- Levemir 25 units daily in the morning; ----Novolog coverage before meals --- same scale as inpatient; ----no Novolog coverage at bedtime; ----monitor FSGs x 4 times a day; ----f/u in office after discharge; ----call office if there are any questions. Subjective Subjective: He feels okay. His glucose levels are still in the 200s and 300s. But prednisone will be further decreased to 30 mg daily today. Objective Last 24 Hrs of Vital Signs/I&O Vital Signs Date Time Temp Pulse Resp B/P B/P Pulse O2 O2 Flow FiO2 Mean Ox Delivery Rate 07/22 08 98 Nasal 2.0L Cannula 07/22 0608 98.0 66 20 102/60 98 07/22 0000 Nasal 2.0L Cannula 07/211 69 97 07/21 2152 97.9 81 20 124/70 98 07/21 2044 98 Nasal 2.0L Cannula 07/22 2019 97.9 81 20 124/70 07/22 2019 97.9 81 20 124/70 07/21 2018 97.9 81 20 124/70 07/21 1600 Nasal 2.0L Cannula 07/21 1327 97.9 73 18 118/60 96 Nasal 2.0L Cannula 07/21 1025 58 07/21 1025 58 /07/21 0821 98 Nasal 2.0L Cannula Intake & Output 07/22 1600 07/22 0800 07/22 0000 Intake Total 350 200 Output Total 300 Balance 350 -100 Intake, Oral 350 200 Output, Urine 300
--- NOTE | 2017-07-22 11:28 | PN- Cardiology ---
Subjective Subjective: Doing well. No dizziness. Objective Vital Signs and I&Os Vital Signs Date Time Temp Pulse Resp B/P B/P Pulse O2 O2 Flow FiO2 Mean Ox Delivery Rate 07/22 0816 66 102/60 07/22 0814 66 102/60 07/22 0806 98 Nasal 2.0L Cannula 07/22 0800 Nasal 2.0L Cannula 07/22 0608 98.0 66 20 102/60 98 / 0000 Nasal 2.0L Cannula 07/21 2221 69 97 / 2153 97.9 81 20 124/70 98 07/21 2045 98 Nasal 2.0L Cannula 07/22 2019 97.9 81 20 124/70 07/22 2019 97.9 81 20 124/70 07/21 2018 97.9 81 20 124/70 07/21 1600 Nasal 2.0L Cannula 07/21 1327 97.9 73 18 118/60 96 Nasal 2.0L Cannula Intake & Output 07/22 1600 07/22 0800 / 0000 07/21 1600 07/21 0800 07/21 0000 Intake Total 350 200 720 120 120 Output Total 300 Balance 350 -100 720 120 120 Intake, Oral 350 200 720 120 120 Output, Urine 300 Physical Exam: General: no apparent distress. Alert. Eyes: No obvious scleral icterus. HEENT: No jugular venous distention or abnormal jugular venous pulsations. Cardiovascular: Normal intensity S1/S2. Regular. ICD noted Respiratory: Lungs clear to auscultation bilaterally. Abdomen: Soft, nontender with no guarding or rebound tenderness. Musculoskeletal: No clubbing or cyanosis noted Skin: warm Neurologic: No gross focal deficits noted. Current Medications: Current Medications Sig/Penny Start time Last Medication Dose Route Stop Time Status Admin Acetaminophen 650 MG Q6P PRN 07/17 1530 AC PO Albuterol Sulfate 3 ML BID 07/18 1056 AC 07/21 INH 2044 Aspirin 81 MG DAILY 07/18 09 AC 07/22 PO 0814 Atorvastatin Calcium 40 MG DAILY@1700 07/17 1700 AC 07/21 PO 1637 Budesonide/ 2 PUF BID 07/17 2100 AC 07/22 Formoterol Fumarate INH 0817 Carvedilol 6.25 MG BID 07/17 2100 AC 07/22 PO 0814 Clopidogrel Bisulfate 75 MG DAILY 07/18 0900 AC 07/22 PO 0816 Furosemide 10 MG DAILY 07/21 1733 AC 07/22 PO 1016 Heparin Sodium 5,000 UNIT Q8 07/18 0600 AC 07/22 (Porcine) SC 0528 Insulin Aspart 0 TIDAC 07/18 08 AC 07/22 SC 0815 Insulin Aspart 0 AT BEDTIME 07/17 2100 AC 07/21 SC 2045 Insulin Detemir 25 UNITS DAILY 07/20 09 AC 07/22 SC 0815 Levothyroxine Sodium 0.1 MG DAILY AC 07/18 0700 AC 07/22 PO 0530 Lidocaine 15 ML BID 07/18 0900 AC 07/22 PO 0817 Nitroglycerin 0.4 MG EVERY 5 MIN PRN 07/17 1615 AC Nystatin 5 ML 4 TIMES/DAY 07/17 1458 DC 07/21 PO 1219 Omeprazole 40 MG DAILY AC 07/18 07 AC 07/22 PO 0530 Patient Medication 1 ED ONE ONE 07/21 1215 DC 07/21 Teaching ED 07/21 1216 1438 Prednisone 30 MG DAILY 07/22 09 AC 07/22 PO 1016 Prednisone 40 MG DAILY 07/19 09 DC 07/21 PO 1025 Ranolazine 500 MG BID 07/17 2100 AC 07/22 PO 0816 Sertraline HCl 50 MG DAILY 07/18 09 AC 07/22 PO 0814 Tamsulosin HCl 0.4 MG AT BEDTIME 07/17 2100 AC 07/21 PO 2020 Tiotropium [place] 1 PUF DAILY 07/17 1607 AC 07/22 INH 0817 Results Last 48 Hrs of Labs/Mics: Laboratory Tests 07/20/17 0615: Anion Gap 8, Estimated GFR 50 L, BUN/Creatinine Ratio 27.9 H, CBC w Diff NO MAN DIFF REQ, RBC 3.79 L, MCV 100.1 H, MCH 33.3 H, MCHC 33.2, RDW 15.6 H, MPV 9.3, Gran % 85.0 H, Lymphocytes % 7.7 L, Monocytes % 7.2, Eosinophils % 0, Basophils % 0.1, Absolute Granulocytes 7.3 H, Absolute Lymphocytes 0.7 L, Absolute Monocytes 0.6, Absolute Eosinophils 0, Absolute Basophils 0 07/19/17 2350: Urine Osmolality 699, Ur Random Creatinine 64.3, Ur Random Sodium 25 L, Ur Random Potassium 28.4, Fraction Sodium Excret 0.4 Assessment/Plan Assessment/Plan 1. Hyperglycemia with prednisone use 2. Ischemic cardiomyopathy with prior CABG/PCI 3. AICD in situ 4. Abdominal aortic aneurysm status post prior EVAR 5. Aortic stenosis 6. Small cell lung CA 7. Hypothyroidism 8. Not on ZULAY inhibitor per reoprt due to CKD with hyperkalemia Doing well. No dizziness. Continue current cardiac regimen. Follow-up in our office after discharge. Please call with any additional questions or concerns. Brady Arce MD [facility] Continue telemetry? Not applicable
[2017-07-22] MEDS ORDERED: LASIX20 M1 PO (13:00)
[2017-07-22 13:36] VITALS: BP 100/70
== END 2017-07-22 15:40 | disposition home health service (06) | DRG 638 ==
LOC: DELPENDDIS → ERH 10:30 → 2NA 12:27 → ERHI 12:27 → ENRESERV 13:43 → ENTRNSPT 14:43 → EDTRNSPTSTS 14:56 → 2NA 14:57 → CMPTRNSPT 15:05 → 2NA 17:09 → ENPENDDIS 07-21 10:20 → ENTRNSPT 07-22 15:13 → EDTRNSPTSTS 07-22 15:26 → EDTRNSPT 07-22 15:26 → 2NA 07-22 15:40 → CMPTRNSPT 07-22 15:43
PROVIDERS: Emergency Medicine; Internal Medicine; Radiology Vascular & Interventional Radiology
DX: E09.65 Drug or chemical induced diabetes mellitus with hyperglycemia (principal); E87.1 Hypo-osmolality and hyponatremia; Z99.81 Dependence on supplemental oxygen; I13.0 Hypertensive heart and chronic kidney disease with heart failure and stage 1 through stage 4 chronic kidney disease, or unspecified chronic kidney disease; C34.90 Malignant neoplasm of unspecified part of unspecified bronchus or lung; I25.10 Atherosclerotic heart disease of native coronary artery without angina pectoris; I25.5 Ischemic cardiomyopathy; B37.9 Candidiasis, unspecified; I50.9 Heart failure, unspecified; J44.9 Chronic obstructive pulmonary disease, unspecified; E03.9 Hypothyroidism, unspecified; E86.0 Dehydration; Z98.61 Coronary angioplasty status; Z95.1 Presence of aortocoronary bypass graft; Z95.810 Presence of automatic (implantable) cardiac defibrillator; I73.9 Peripheral vascular disease, unspecified; G47.33 Obstructive sleep apnea (adult) (pediatric); Z92.3 Personal history of irradiation; Z79.82 Long term (current) use of aspirin; Z79.4 Long term (current) use of insulin; Z79.51 Long term (current) use of inhaled steroids; Z79.52 Long term (current) use of systemic steroids; N18.3 Chronic kidney disease, stage 3 (moderate); I95.1 Orthostatic hypotension; T38.0X5A Adverse effect of glucocorticoids and synthetic analogues, initial encounter
CPT/HCPCS: 2NAP; 84133; 84300; 36415; 36592; 71046; 81003; 82436; 82570; 93005; 93010; 96361; 96374; 99291; J1644; J1815; J3490; J7512

== ENCOUNTER 2017-09-25 10:49 | Emergency (ER) | payer OTHER, MEDICARE ==
[~2017-09-25] VITALS: Ht 182.9 cm; Wt 108.9 kg
[~2017-09-25 10:49] MED LIST changes: +CARVEDILOL6.25 M1 PO; +LEVEMIR FL100 UNIT/1 SC; +NOVOLOG FL100 UNIT/1 SC; +OMEPRAZOLE40 M1 PO; +SERTRALINE HCL50 MG PO
--- NOTE | 2017-09-25 11:19 | ED UPPER/LOWER EXTREMITY COMPL ---
See Addendum History of Present Illness General Chief Complaint: Lower Extremity Problems Stated Complaint: BILTERAL LEG PAIN Source: patient, old records Exam Limitations: no limitations Vital Signs & Intake/Output Vital Signs & Intake/Output Vital Signs Date Time Temp Pulse Resp B/P B/P Pulse O2 O2 Flow FiO2 Mean Ox Delivery Rate 09/25 1316 97.5 37 18 127/59 98 Room Air 09/25 1057 97.8 71 18 105/66 97 Room Air Allergies Coded Allergies: NO KNOWN ALLERGIES (NONE 05/10/17) Reconcile Medications Acetaminophen 325 MG CAPSULE 1 CAP PO PRN PAIN (Reported) Albuterol Sulfate (Proair Hfa) 90 MCG HFA.AER.AD 2 PUF INH Q4 COPD Aspirin (Aspirin*) 81 MG TAB.CHEW 1 TAB PO DAILY heart (Reported) Atorvastatin Calcium (Lipitor) 40 MG TABLET 1 TAB PO DAILY cholesterol ( Reported) Budesonide/Formoterol Fumarate (Symbicort 160-4.5 Mcg Inhaler) 160 MCG-4.5 MCG/ ACTUATION HFA.AER.AD 2 PUF INH BID COPD (Reported) Carvedilol 6.25 MG TABLET 1 TAB PO BID HEART/BP (Reported) Clopidogrel Bisulfate (Clopidogrel) 75 MG TABLET 1 TAB PO DAILY BLOOD THINNER (Reported) Furosemide (Lasix) 20 MG TABLET 10 MG PO DAILY HEART HEALTH . Insulin Aspart, Recombinant (Novolog Flexpen) 100 UNIT/ML INSULN.PEN 0 SC SEE ADMIN CRITERIA DM PLEASE check your blood sugar 3 times daily before meals and at bedtime and . FOLLOW 80 - 150 MG/DL 9 UNITS 151- 200 MG/DL 11 UNITS 201- 250 MG/DL 13 UNITS 251- 300 MG/DL 15 UNITS 301- 350 MG/DL 17 UNITS 351 - 400MG/DL 19 UNITS >400 MG/DL 20 UNITS AND CALL YOUR DR. Insulin Detemir (Levemir Flextouch) 100 UNIT/ML (3 ML) INSULN.PEN 25 UNITS SC DAILY AC DM Levothyroxine Sodium 100 MCG TABLET 1 TAB PO DAILY THYROID (Reported) Nitroglycerin (Nitrostat) 0.4 MG TAB.SUBL 1 TAB SL AD PRN CHEST PAIN ( Reported) 1st sign of attack; may repeat every 5 minutes until relief; if pain persists after 3 tablets in 15 minutes, prompt medical att Omeprazole 40 MG CAPSULE.DR 1 CAP PO DAILY GI (Reported) Prednisone 10 MG TABLET 0 PO SEE ADMIN CRITERIA lung health please take:. 3 pills for 3 days 2 pills for 3 days 1 pill for 3 days and then disscuss with your oncologist and PCP regarding stopping Ranolazine (Ranexa) 500 MG TAB.ER.12H 1 TAB PO BID heart (Reported) Sertraline HCl 50 MG TABLET 1 TAB PO DAILY MENTAL HEALTH (Reported) Tamsulosin HCl (Flomax) 0.4 MG CAP.ER.24H 1 CAP PO QHS prostate Please take at bed time to avoid low blood pressure during the day. Tiotropium [place] (Spiriva) 18 MCG CAP.W.DEV 1 CAP INH DAILY COPD (Reported) Triage Note: 76M REPORTS BILATERAL LEG CRAMPS SINCE YESTERDAY. ADMITS HE IS NOT DRINKING ENOUGH WATER. CRAMPING IS ALSO AT REST. RECENT DX OF DIABETES. DENIES SENSITIVITY TO HOT/COLD AND DENIES FEVERS/CHILLS R/O DVT. RECENT DX OF DIABETES. DENIES SENSITIVITY TO HOT/COLD AND DENIES FEVERS/CHILLS. Triage Nurses Notes Reviewed? yes Onset: Gradual Duration: day(s): Timing: recent history Severity: moderate Pain/Injury Location: Bilateral: Leg. HPI: 76-year-old male with history of hypertension, diabetes, lung cancer, coronary artery disease presents to emergency department complaining of bilateral leg cramps beginning yesterday. Patient reports cramping sensation in calf's, worse on the left side. Patient also notes increasing swelling in lower legs. 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 Patient was started on insulin injections due to elevated blood sugars at that time. Patient reports dyspnea which is chronic, no worsening. Patient denies recent travel, hemoptysis, chest pain, abdominal pain. (Ratna PEARL,Marita Nieto) Past History Travel History Traveled to [place] past 21 day No Medical History Any Pertinent Medical History? 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 No (Marita Rodriguez) Review of Systems Review of Systems Constitutional: Reports: no symptoms. EENTM: Reports: no symptoms. Respiratory: Reports: see HPI. Cardiovascular: Reports: see HPI. Gastrointestinal/Abdominal: Reports: no symptoms. Genitourinary: Reports: no symptoms. Musculoskeletal: Reports: see HPI. Skin: Reports: no symptoms. Neurological/Psychological: Reports: no symptoms. Hematologic/Endocrine: Reports: no symptoms. Immunological: Reports: no symptoms. All Other Systems: Reviewed and Negative (Marita Rodriguez) Physical Exam Physical Exam General Appearance: well developed/nourished, no apparent distress, alert, awake Head: atraumatic, normal appearance Eyes: Bilateral: normal appearance. Ears, Nose, Throat: hearing grossly normal Neck: normal inspection, supple, full range of motion Cardiovascular/Respiratory: regular rate/rhythm, no respiratory distress, mild bilateral expiratory wheezes Back: normal inspection, normal range of motion Leg Left: mild calf tenderness, mild pitting edema Leg Right: mild calf tenderness, mild pitting edema Neurologic/Tendon: normal sensation, normal motor functions, normal tendon functions, capillary refill intact Skin: intact, normal color, warm/dry (Marita Rodriguez) Progress Differential Diagnosis: arterial insufficiency, cellulitis, CHF, DVT, sprain, electrolyte abnormality, lactic acidosis Plan of Care: Orders Procedure Date/time Status EKG 09/25 1327 Active Add-on Test (ER Only) 09/25 1200 Active LACTIC ACID 09/25 1200 Complete CREATINE PHOSPHOKINASE 09/25 1200 Complete Add-on Test (ER Only) 09/25 1159 Active TROPONIN LEVEL 09/25 1116 Complete MAGNESIUM 09/25 1116 Complete COMPREHENSIVE METABOLIC PANEL 09/25 1116 Complete CBC WITHOUT DIFFERENTIAL 09/25 1116 Complete Laboratory Tests 09/25/17 1200: Anion Gap 10, Estimated GFR 40 L, BUN/Creatinine Ratio 20.0, Glucose 116 H, Lactic Acid 0.9, Calcium 8.9, Magnesium 1.7, Total Bilirubin 0.5, AST 28, ALT 66 , Alkaline Phosphatase 83, Creatine Kinase 65, Troponin I 0.06, Total Protein 5.6 L, Albumin 3.3 L, Globulin 2.3, Albumin/Globulin Ratio 1.4, CBC w Diff NO MAN DIFF REQ, RBC 3.53 L, MCV 102.0 H, MCH 33.9 H, MCHC 33.2, RDW 18.7 H, MPV 8.2, Gran % 80.5 H, Lymphocytes % 10.0 L, Monocytes % 8.8, Eosinophils % 0.4, Basophils % 0.3, Absolute Granulocytes 6.2, Absolute Lymphocytes 0.8 L, Absolute Monocytes 0.7 H, Absolute Eosinophils 0, Absolute Basophils 0 Ultrasound shows no evidence of DVTs. Patient's labs are stable compared to his baseline. No evidence of lactic acidosis or electrolyte abnormality based on the patient's labs. Patient's bilateral calf pain and mild swelling is likely related to discontinuation of his Lasix. Patient does have chronic kidney disease. Patient was formerly on low-dose Lasix, will restart his Lasix on a PRN schedule. 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 Patient given strict return precautions. The patient agrees with plan of care. The patient was discussed with Dr. Sandoval who agrees with this plan. Diagnostic Imaging: Viewed by Me: Ultrasound. Discussed w/RAD: Ultrasound. Radiology Impression: PATIENT: EMILY FRANCO JR PRESENT AGE: 76 PATIENT ACCOUNT NO: [id number] : 42 LOCATION: [facility] ORDERING PHYSICIAN: Sandro Sandoval MD SERVICE DATE: 09/25/17 EXAM TYPE: US - US-EXT BILAT VENOUS DOPPLER EXAMINATION: US TRIPLEX OF LOWER EXTREMITIES, BILATERAL CLINICAL INFORMATION: Bilateral lower extremity cramping COMPARISON: None TECHNIQUE: Color-flow triplex imaging with spectral analysis and compression Doppler were performed on the lower extremities. FINDINGS: Respiratory variation, normal compression and augmented flow are noted throughout the lower extremities. The visualized common femoral vein, superficial femoral vein, profunda femoral vein, popliteal vein and midcalf peroneal and posterior tibial venous segments show no evidence of deep venous thrombosis. There is no Daniels's cyst. IMPRESSION: No evidence of deep venous thrombosis involving the bilateral lower extremities. DICTATED BY: Jesus Thompson MD DATE/TIME DICTATED:09/25/171204 NASCAR DRIVER:CAROL ANN DATE/TIME TRANSCRIBED:09/25/171204 CONFIDENTIAL, DO NOT COPY WITHOUT APPROPRIATE AUTHORIZATION. <Electronically signed in Other Vendor System> SIGNED BY: Jesus Thompson MD 09/25/17 [id number] (Marita Rodriguez) Departure Departure Disposition: HOME OR SELF CARE Condition: Stable Clinical Impression Primary Impression: Leg cramps Secondary Impressions: Pedal edema Referrals: Sayra Tang MD (PCP/Family) Additional Instructions: As discussed, YOU may take Tylenol 650-1000mg four times a day to help with pain. Begin furosemide again NEEDED for swelling in your legs. Do not take lasix every day, only when you notice swelling is increasing. Follow up with Dr. Martinez's office, call this week to make an appointment and inform them of the changes we made today. Return with worsening symptoms or concerns. Please note that there might be incidental findings in your evaluation that are unrelated to the current emergency department visit. Please notify your primary care doctor about this emergency department visit in order to obtain and review all of the testing performed so that these incidental findings can be monitored as needed. If you had an x-ray performed, please understand that some fractures may not be seen on the initial set of x-rays. If your symptoms persist you might need a repeat set of x-rays to check for such a fracture. If you had a laceration evaluated, please understand that foreign bodies such as glass or wood may not be visible to the naked eye or on plain x-rays. If the wound becomes red, swollen, increasingly more painful or if there is any drainage from the wound, please have it reevaluated by a physician for the possibility of a retained foreign body. If you're unable to follow up as outlined in the discharge instructions please return to the emergency department. Thank you for choosing the [facility] Emergency Department for your care. It was a pleasure to serve you today. Departure Forms: Customer Survey General Discharge Information (Marita Rodriguez) PA/ASSISTANT PROFESSOR OF SOCIOLOGY Co-Sign Statement Statement: ED Attending supervision documentation- x I saw and evaluated the patient. I have also reviewed all the pertinent lab results and diagnostic results. I agree with the findings and the plan of care as documented in the PA's/ASSISTANT PROFESSOR OF SOCIOLOGY's documentation. [] I have reviewed the ED Record and agree with the PA's/ASSISTANT PROFESSOR OF SOCIOLOGY's documentation. [] Additions or exceptions (if any) to the PAs/ASSISTANT PROFESSOR OF SOCIOLOGY's note and plan are summarized below: [] (Jaime LUND,Sandro)
[2017-09-25 12:09] LABS: ABSOLUTE BASOPHIL COUNT 0 /CUMM (0.0-0.2); ABSOLUTE EOSINOPHIL COUNT 0 /CUMM (0.0-0.7); ABSOLUTE GRANULOCYTE CT 6.2 /CUMM (1.4-6.5); ABSOLUTE LYMPH COUNT 0.8 /CUMM (1.2-3.4); ABSOLUTE MONOCYTE COUNT 0.7 /CUMM (0.10-0.60); BASOPHIL % 0.3 % (0.0-2.0); EOSINOPHIL % 0.4 % (0-5); GRANULOCYTE % 80.5 % (42.2-75.2); MEAN CORPUSCULAR HGB 33.9 PG (27.0-31.0); MEAN CORPUSCULAR HGB CONC 33.2 G/DL (33.0-37.0); MEAN PLATELET VOLUME 8.2 FL (7.4-10.4); PLATELET COUNT 118 /CUMM (130-400); RBC DISTRIBUTION WIDTH 18.7 % (11.5-14.5); RED BLOOD CELL CT 3.53 /CUMM (4.70-6.10); WHITE BLOOD CELL COUNT 7.7 /CUMM (4.8-10.8)
--- NOTE | 2017-09-25 12:09 | ULTRASOUND REPORT ---
EXAMINATION: US TRIPLEX OF LOWER EXTREMITIES, BILATERAL CLINICAL INFORMATION: Bilateral lower extremity cramping COMPARISON: None TECHNIQUE: Color-flow triplex imaging with spectral analysis and compression Doppler were performed on the lower extremities. FINDINGS: Respiratory variation, normal compression and augmented flow are noted throughout the lower extremities. The visualized common femoral vein, superficial femoral vein, profunda femoral vein, popliteal vein and midcalf peroneal and posterior tibial venous segments show no evidence of deep venous thrombosis. There is no Daniels's cyst. IMPRESSION: No evidence of deep venous thrombosis involving the bilateral lower extremities.
[2017-09-25 13:16] VITALS: BP 127/59
[2017-09-25] MEDS ORDERED: LEVEMIR100 UNIT/1 SC (14:17)
[2017-09-25] MEDS ORDERED: ISOSORBIDE MONO60 M1 PO (14:18)
[2017-09-25] MEDS ORDERED: LEVOTHYROXINE25 MCG PO (14:18)
[2017-09-25] MEDS ORDERED: PREDNISONE10 M2 PO (14:19)
[2017-09-25] MEDS ORDERED: JARDIANCE10 M1 PO (14:20)
== END 2017-09-25 14:29 ==
LOC: ERH 10:49
PROVIDERS: Physician Assistant
DX: R25.2 Cramp and spasm (principal); R60.9 Edema, unspecified
CPT/HCPCS: 93005; 93010; 93970

== ENCOUNTER 2017-11-06 14:44 | Inpatient (IN) | payer OTHER, MEDICARE ==
[~2017-11-06] VITALS: Ht 182.9 cm; Wt 99.9 kg
[~2017-11-06 14:44] MED LIST changes: +JARDIANCE10 M1 PO; +LEVEMIR100 UNIT/1 SC; +LEVOTHYROXINE25 MCG PO
[2017-11-06 15:23] LABS: ABSOLUTE BASOPHIL COUNT 0 /CUMM (0.0-0.2); ABSOLUTE EOSINOPHIL COUNT 0 /CUMM (0.0-0.7); ABSOLUTE GRANULOCYTE CT 7.3 /CUMM (1.4-6.5); ABSOLUTE LYMPH COUNT 0.6 /CUMM (1.2-3.4); ABSOLUTE MONOCYTE COUNT 0.7 /CUMM (0.10-0.60); BASOPHIL % 0.1 % (0.0-2.0); EOSINOPHIL % 0.5 % (0-5); GRANULOCYTE % 83.6 % (42.2-75.2); HEMATOCRIT 34.2 % (42-52); MEAN CORPUSCULAR HGB 34.5 PG (27.0-31.0); MEAN CORPUSCULAR HGB CONC 33.2 G/DL (33.0-37.0); MEAN CORPUSCULAR VOLUME 103.8 FL (80.0-94.0); MEAN PLATELET VOLUME 8.4 FL (7.4-10.4); PLATELET COUNT 125 /CUMM (130-400); RBC DISTRIBUTION WIDTH 17.4 % (11.5-14.5); RED BLOOD CELL CT 3.29 /CUMM (4.70-6.10)
--- NOTE | 2017-11-06 15:27 | RADIOLOGY REPORT ---
EXAMINATION: XRY-PORTABLE CHEST XRAY CLINICAL INFORMATION: Presumptive Dx: PNA CHF
Signs Symptoms: SOB
COMPARISON: None TECHNIQUE: XRY-PORTABLE CHEST XRAY Tubes and lines: Cardiac device projecting over the LEFT hemithorax remain in place unchanged. There are sternotomy wires Lungs and Fifi: Opacification over the LEFT lung base probably infiltrate and/or effusion. Right lung relatively spared. There is mild vascular congestion. Pleura: There is probably LEFT pleural effusion. Heart and mediastinum: Heart and mediastinum are widened exaggerated by the AP technique.. Bones: Skeletal structures included are normal for patient's age. IMPRESSION: Opacity projecting over the LEFT lower lobe probably an infiltrate atelectasis and/or pleural effusion. Underlying vascular vascular congestion. Suggest follow-up chest PA and lateral when patient's conditions permits.
--- NOTE | 2017-11-06 15:36 | ED DYSPNEA/ASTHMA COMPLAINT ---
History of Present Illness General Chief Complaint: Dyspnea (COPD, CHF, Other) Stated Complaint: SOB Source: patient Exam Limitations: no limitations Vital Signs & Intake/Output Vital Signs & Intake/Output Vital Signs Date Time Temp Pulse Resp B/P B/P Pulse O2 O2 Flow FiO2 Mean Ox Delivery Rate 11/06 1638 95 11/06 1557 95 11/06 1512 93 11/06 1448 98.0 88 22 106/69 96 Room Air Allergies Coded Allergies: NO KNOWN ALLERGIES (NONE 05/10/17) Reconcile Medications Acetaminophen 325 MG CAPSULE 1 CAP PO PRN PAIN (Reported) Albuterol Sulfate (Proair Hfa) 90 MCG HFA.AER.AD 2 PUF INH Q4 COPD Aspirin (Aspirin*) 81 MG TAB.CHEW 1 TAB PO DAILY heart (Reported) Atorvastatin Calcium (Lipitor) 40 MG TABLET 1 TAB PO DAILY cholesterol ( Reported) Budesonide/Formoterol Fumarate (Symbicort 160-4.5 Mcg Inhaler) 160 MCG-4.5 MCG/ ACTUATION HFA.AER.AD 2 PUF INH BID COPD (Reported) Carvedilol 6.25 MG TABLET 1 TAB PO BID HEART/BP (Reported) Clopidogrel Bisulfate (Clopidogrel) 75 MG TABLET 1 TAB PO DAILY BLOOD THINNER (Reported) Empagliflozin (Jardiance) 10 MG TABLET 1 TAB PO DAILY DM (Reported) Furosemide (Lasix) 20 MG TABLET 10 MG PO DAILY HEART HEALTH . Insulin Aspart, Recombinant (Novolog Flexpen) 100 UNIT/ML INSULN.PEN 0 SC SEE ADMIN CRITERIA DM PLEASE check your blood sugar 3 times daily before meals and at bedtime and . FOLLOW 80 - 150 MG/DL 9 UNITS 151- 200 MG/DL 11 UNITS 201- 250 MG/DL 13 UNITS 251- 300 MG/DL 15 UNITS 301- 350 MG/DL 17 UNITS 351 - 400MG/DL 19 UNITS >400 MG/DL 20 UNITS AND CALL YOUR DR. Insulin Detemir (Levemir) 100 UNIT/ML VIAL 20 UNITS SC QAM DM (Reported) Levothyroxine Sodium 100 MCG TABLET 1 TAB PO DAILY THYROID (Reported) Levothyroxine Sodium 25 MCG TABLET 0.5 TAB PO DAILY THYROID (Reported) Nitroglycerin (Nitrostat) 0.4 MG TAB.SUBL 1 TAB SL AD PRN CHEST PAIN ( Reported) 1st sign of attack; may repeat every 5 minutes until relief; if pain persists after 3 tablets in 15 minutes, prompt medical att Omeprazole 40 MG CAPSULE.DR 1 CAP PO DAILY GI (Reported) Prednisone 10 MG TABLET 1.5 TAB PO DAILY STEROID (Reported) Ranolazine (Ranexa) 500 MG TAB.ER.12H 1 TAB PO BID heart (Reported) Sertraline HCl 50 MG TABLET 1 TAB PO DAILY MENTAL HEALTH (Reported) Tamsulosin HCl (Flomax) 0.4 MG CAP.ER.24H 1 CAP PO QHS prostate Please take at bed time to avoid low blood pressure during the day. Tiotropium [place] (Spiriva) 18 MCG CAP.W.DEV 1 CAP INH DAILY COPD (Reported) Triage Note: PT COMPLAINS OF INCREASED SOB ON EXERTION OVER THE PAST 2 DAYS. O2 SAT 95 % ON RA WHILE AT REST. SLIGHT NON PRODUCTIVE COUGH. DENIES CP Triage Nurses Notes Reviewed? yes Onset: Gradual Duration: day(s):, constant, changing over time, continues in ED, getting worse, waxing and waning Severity: severe Activities at Onset: rest Prior Episodes/Possible Cause: occasional episodes HPI: Patient presents for evaluation of worsening shortness of breath over the past 2 days. Patient states he onset was relatively abrupt and has been constant since onset although it waxes and wanes in intensity. His dyspnea worsens with any exertion. He states he has had shortness of breath previously thought due to his cigarette smoking (patient quit smoking about 8 months ago). He denies associated chest pain wheezing fever or cold symptoms. He has had a nonproductive cough. He denies orthopnea. He denies history of congestive heart failure or other lung disease. He does admit to diabetes and coronary artery disease with prior "open heart". Past History Travel History Traveled to [place] past 21 day No Medical History Any Pertinent Medical History? 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 No Review of Systems Review of Systems Constitutional: Reports: no symptoms. EENTM: Reports: no symptoms. Respiratory: Reports: see HPI. Cardiovascular: Reports: no symptoms. GI: Reports: no symptoms. Genitourinary: Reports: no symptoms. Musculoskeletal: Reports: no symptoms. Skin: Reports: no symptoms. Neurological/Psychological: Reports: no symptoms. Hematologic/Endocrine: Reports: no symptoms. Immunologic/Allergic: Reports: no symptoms. All Other Systems: Reviewed and Negative Physical Exam Physical Exam Respiratory: SEE BELOW Comments: Gen.: Well-nourished, well-developed, no acute respiratory distress. Head: Normocephalic, atraumatic. Eyes: Normal inspection bilaterally Ears: Normal inspection bilaterally Nose: Normal inspection Throat/mouth : Moist mucosa Neck: Supple, full range of motion, no goiter, no JVD Heart: Regular rate and rhythm, no murmurs rubs or gallops Lungs: Scattered expiratory wheezing bilaterally with mildly decreased air entry Chest: Nontender Back: Normal range of motion Abdomen: Soft, protuberant, nontender, nondistended, normal bowel sounds Extremities: Normal range of motion grossly, equal radial pulses, no cyanosis, 1 + bilateral pitting edema of the lower extremities Neurologic: Cranial nerves grossly intact, speech is clear Skin: warm and dry Psychiatric: Calm, cooperative, no apparent delusions or hallucinations Core Measures ACS in differential dx? No CVA/TIA Diagnosis No Sepsis Present: No Sepsis Focused Exam Completed? No Progress Differential Diagnosis: AMI, bronchitis, CHF, COPD, pericarditis, pulmonary embolism, pneumonia, pneumothorax, unstable angina Plan of Care: Orders Procedure Date/time Status Heart Healthy Diet 11/07 B Active Consistent Carbohydrate 1 11/[address] in observation 11/06 183 Active Misc Message 11/06 183 Active ED Holding Orders 11/06 1836 Active Vital Signs 11/06 183 Active Code Status 11/06 1836 Active TROPONIN LEVEL 11/06 1451 Complete COMPREHENSIVE METABOLIC PANEL 11/06 1451 Complete CBC WITHOUT DIFFERENTIAL 11/06 1451 Complete EKG 11/06 1450 Active Laboratory Tests 11/06/17 1508: Anion Gap 7, Estimated GFR 39 L, BUN/Creatinine Ratio 20.0, Glucose 164 H, Calcium 8.6, Total Bilirubin 0.8, AST 27, ALT 86 H, Alkaline Phosphatase 100, Troponin I 0.06, Total Protein 5.6 L, Albumin 3.3 L, Globulin 2.3, Albumin/ Globulin Ratio 1.4, CBC w Diff NO MAN DIFF REQ, RBC 3.29 L, MCV 103.8 H, MCH 34.5 H, MCHC 33.2, RDW 17.4 H, MPV 8.4, Gran % 83.6 H, Lymphocytes % 7.3 L, Monocytes % 8.5, Eosinophils % 0.5, Basophils % 0.1, Absolute Granulocytes 7.3 H, Absolute Lymphocytes 0.6 L, Absolute Monocytes 0.7 H, Absolute Eosinophils 0, Absolute Basophils 0 Diagnostic Imaging: Discussed w/RAD: Radiology Read. CXR Impression: PATIENT: EMILY FRANCO JR PRESENT AGE: 77 PATIENT ACCOUNT NO: [id number] : 42 LOCATION: [facility] ORDERING PHYSICIAN: Elan PEARL SERVICE DATE: 11/06/17 EXAM TYPE: RAD - XRY- PORTABLE CHEST XRAY EXAMINATION: XRY-PORTABLE CHEST XRAY CLINICAL INFORMATION: Presumptive Dx: PNA CHF
Signs Symptoms: SOB
COMPARISON: None TECHNIQUE : XRY-PORTABLE CHEST XRAY Tubes and lines: Cardiac device projecting over the LEFT hemithorax remain in place unchanged. There are sternotomy wires Lungs and Fifi: Opacification over the LEFT lung base probably infiltrate and/or effusion. Right lung relatively spared. There is mild vascular congestion. Pleura: There is probably LEFT pleural effusion. Heart and mediastinum: Heart and mediastinum are widened exaggerated by the AP technique.. Bones: Skeletal structures included are normal for patient's age. IMPRESSION: Opacity projecting over the LEFT lower lobe probably an infiltrate atelectasis and/or pleural effusion. Underlying vascular vascular congestion. Suggest follow-up chest PA and lateral when patient's conditions permits. DICTATED BY: Jaden Conti MD DATE/TIME DICTATED:11/06/171517 EXERCISE EQUIPMENT REPAIR TECHNICIAN:CAROL ANN DATE/TIME TRANSCRIBED:1517 CONFIDENTIAL, DO NOT COPY WITHOUT APPROPRIATE AUTHORIZATION. < Electronically signed in Other Vendor System> SIGNED BY: Jaden Conti MD 11/06/17 5370 Initial ED EKG: NSR, rate (85), LVH, IVCD Prior EKG: unchanged Comments: 11/06/2017 4:30:23 PM although Emily feels no improvement after the DuoNeb, his wheezing has lessened considerably. I will give him another albuterol treatment and reassess. 11/06/2017 5:44:41 PM patient's case discussed with case management and with the hospitalist. Departure Departure Disposition: STILL A PATIENT Condition: Stable Clinical Impression Primary Impression: COPD (chronic obstructive pulmonary disease) Qualifiers: COPD type: unspecified COPD Qualified Code: J44.9 - Chronic obstructive pulmonary disease, unspecified Secondary Impressions: Exertional dyspnea, Renal insufficiency Referrals: Sayra Tang MD (PCP/Family) Departure Forms: Customer Survey General Discharge Information Observation Note Spoke With: Preston LUND,Z[facility] [address] Patient In: Non-ED OBS Care Area Rationale for Observation: My rational for observation is as follows patient's clinical presentation is consistent with COPD, given his dyspnea on exertion and and expiratory wheezing. With ambulation in the emergency department (after 2 nebulizer treatments) he became very dyspneic and tachypneic and needed to sit down again. Given the patient's dyspnea I feel he would be a poor candidate for outpatient management and likely would return, potentially worse clinical condition. His dyspnea would place him at high risk of falling and also make it very challenging for him to comply with outpatient treatment. I now feel that he requires hospitalization for repeated nebulized bronchodilators, IV steroids and monitoring of pulse oximetry. Pulmonary consultation should be considered the patient's medications optimized. Critical Care Note Critical Care Note Critical Care Time: 30-74 min
[2017-11-06 16:07] LABS: WHITE BLOOD CELL COUNT 8.7 /CUMM (4.8-10.8)
--- NOTE | 2017-11-06 20:17 | History & Physical ---
Brooke Ballard 11/06/17 2017: General Information and HPI MD Statement: I have seen and personally examined EMILY FRANCO and documented this H&P. The patient is a 77 year old M who presented with a patient stated chief complaint of []. Source of Information: patient Exam Limitations: no limitations History of Present Illness: 77 year old male with extensive PMH s/p CABG (1988), CAD with stents (), h/ o DVT (5 yrs ago), IDDM (dx 3months ago), COPD, Small Cell lung CA (last dose of radiation 3 months ago), ischemic cardiomyopathy with EF 20% s/p defibrillator placement (Mar 2017), s/p carotid endarterectomy right side (1997), hypothryroid , HTN, BPH, PATTI on CPAP at [facility] presenting with two day history of progressive SOB. He states his symptoms developed suddenly. Patient reports associated dry cough but denies fever, chills, n/v/d, chest pain, dizziness. He states he becomes severely SOB ambulating from kitchen to living room (approx 25ft). He is unable to climb stairs without getting on his hands and knees and taking breaks. He denies recent illness, travel, or sick contacts. Patient also reports 'itching' to his extremities and scabs from scratching. Patient was last admitted in July 2017 for COPD exacerbation. Past History Travel History Traveled to [place] past 21 day No Medical History Neurological: NONE EENT: NONE Cardiovascular: CARDIAC STENTS CABG CAROTID ARTERY BYPASS DEFIBRILLATOR Respiratory: COPD Gastrointestinal: NONE Hepatic: NONE Renal: NONE Musculoskeletal: NONE Psychiatric: NONE Endocrine: hypothyroidism Blood Disorders: DVT Cancer(s): lung cancer WASTE RECLAIMER/Reproductive: NONE History of MRSA: No History of VRE: No History of CDIFF: No Surgical History Surgical History: CABG, CAROTID ARTECTOMY nerve thermoablation to reduce back pain Past Family/Social History Family History Relations & Conditions if any Relation not specified for: *No pertinent family history Psychosocial History Who Do You Live With? spouse Services at Home: None Primary Language: Zambian Smoking Status: Former Smoker (60 pack year history;quit 8mos) ETOH Use: denies use Illicit Drug Use: denies illicit drug use Living Will? no Functional Ability ADLs Independent: dressing, eating, toileting, bathing. Ambulation: independent Employment History Employment Retired Review of Systems Review of Systems Constitutional: Reports: no symptoms. EENTM: Reports: no symptoms. Cardiovascular: Reports: peripheral edema. Respiratory: Reports: cough, short of breath. Denies: sputum production, wheezing. GI: Reports: no symptoms. Genitourinary: Reports: no symptoms. Musculoskeletal: Reports: no symptoms. Skin: Reports: dryness (excoriations BUE/BLE). Exam & Diagnostic Data Last 24 Hrs of Vital Signs/I&O Vital Signs Date Time Temp Pulse Resp B/P B/P Pulse O2 O2 Flow FiO2 Mean Ox Delivery Rate 11/066 Room Air 11/06 2116 97.8 82 20 122/74 93 Room Air 11/06 1918 97.8 86 18 117/76 96 Room Air 11/06 1638 95 11/06 1557 95 11/06 1512 93 11/06 1448 98.0 88 22 106/69 96 Room Air Intake & Output 11/06 1600 11/06 0800 11/06 0000 Intake Total Output Total Balance Patient 250 lb Weight Physical Exam General Appearance Alert, Oriented X3, Cooperative, No Acute Distress, obese male Skin excoriations to BUE/BLE. suspicious moles on back with irregular shape; dark brown to black in color; no surrounding erythema or active bleeding Skin Temp/Moisture Exam: Warm/Dry HEENT Atraumatic, PERRLA Neck Supple Cardiovascular Regular Rate, systolic murmur Lungs expiratory wheeze heard over RUL otherwise CTA Abdomen Normal Bowel Sounds, Soft, No Tenderness, obese Extremities 2+pitting edema BLE, unable to palpate pedal pulses 2/2 edema; cap refill <2sec Assessment/Plan Assessment: 77 year old male with extensive PMH s/p CABG (1988), CAD with stents (), h/ o DVT (5 yrs ago), IDDM (dx 3months ago), COPD, Small Cell lung CA (last dose of radiation 3 months ago), ischemic cardiomyopathy with EF 20% s/p defibrillator placement (Mar 2017), s/p carotid endarterectomy right side (1997), hypothryroid , HTN, BPH, PATTI on CPAP at [facility] presenting with two day history of progressive SOB. He states his symptoms developed suddenly. Patient will be brought in for observation to the general medicine service for further care of the following: Problem List: 1. Acute COPD exacerbation 2. CKD stage 3 3. Elevated ALT 4. Thrombocytopenia 5. h/o IDDM Admission Data: VS T98.0 P88 RR22 BP106/69 Sat96%RA Labs: WBC 8.7 H/H 11.3/34.2 Plt 125 BUN/Cr 34/1.7 ALT 86 Alb 3.3 Portable CXR: IMPRESSION: Opacity projecting over the LEFT lower lobe probably an infiltrate atelectasis and/or pleural effusion. Underlying vascular vascular congestion. Suggest follow-up chest PA and lateral when patient's conditions permits. Patient given SoluMedrol 125mg IV x1dose and duonebs in ED #Acute COPD exacerbation; unlikely to have an infectious component despite CXR findings as patient is s/p radiation in that lung field and patient has no leukocytosis and afebrile. 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 Chronic kidney disease 2. COPD exacerbation Core Measures/Misc (12/05) Acute Coronary Syndrome ACS Diagnosis: No Congestive Heart Failure Congestive Heart Failure Diagnosis No Cerebrovascular Accident CVA/TIA Diagnosis: No VTE (View Protocol) VTE Risk Factors Acute Medical Illness No Mechanical VTE Prophylaxis d/t N/A MechProphylax Ordered No VTE Pharm Prophylaxis d/t Platelets below ref range Sepsis (View protocol) Sepsis Present: No If YES complete Sepsis Event Note If YES complete Sepsis Event Note Adrián Ely 11/06/17 2231: Core Measures/Misc (12/05) Sepsis (View protocol) If YES complete Sepsis Event Note If YES complete Sepsis Event Note Resident Review Statement Resident Statement: examined this patient, discussed with sourcing internship, agreed with sourcing internship, discussed with family, reviewed EMR data (avail), discussed with nursing , discussed with case mgmt, reviewed images, amended to note Other Findings: This is a 77-year-old male with past medical history significant for COPD not on home oxygen, coronary artery disease status post CABG, PCI, ischemic cardiomyopathy ejection fraction 20% status post AICD, diabetes mellitus, systolic heart failure, hypothyroidism, GERD, BPH, lung cancer small cell carcinoma status post chemo and radio, last radiation 3 months ago, chronic kidney disease stage III, peripheral arterial disease, PATTI not on CPAP presented to the hospital for evaluation of worsening shortness of breath for 2 days. Patient reports worsening shortness of breath with minimal exertion for last couple of days, not relieved with usual inhalers. Also reports dry cough. Denies any sputum production, fever, chills, chest pain. Denies any sick contact exposure or travel history. Patient has shortness of breath with exertion which is his baseline. However for last 2 days he could not even walk 20 feet without getting short of breath. Denies any chest pain, nausea, vomiting, abdominal pain, change in bladder or bowel habits. He quit smoking 8 months ago. Denies alcohol abuse, illicit drug abuse. He was admitted in April for hypoxic respiratory failure and CHF exacerbation. 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 Acute COPD exacerbation Patient presented with worsening and progressive shortness of breath for 2 days associated with dry cough. Denied any fever, chills, sputum production. He quit smoking 8 months ago. Chest x-ray showed left lower lobe opacity. However given his symptoms he does not look like having pneumonia picture. We will observe him in [facility] for acute COPD exacerbation. -Observation in general med -Vitals every shift -Monitor for fever, leukocytosis -TRC nebs -IV methylprednisone 40 mg every 8 hours -We will continue Symbicort, Spiriva -Azithromycin 250 mg for 5 days chronic medical conditions Coronary artery disease-continue aspirin 81, Lipitor 40, Plavix 75, Ranexa 500 twice daily, carvedilol 6.25 twice daily Hyperlipidemia-continue Lipitor 40 daily Hypertension-continue carvedilol 6.25 twice daily Diabetes mellitus-continue Accu-Cheks, NovoLog sliding scale and Levemir 20 units a.m. Systolic heart failure-continue Lasix 20 mg daily Hypothyroidism-levothyroxine 150 mcg daily GERD-omeprazole 40 daily BPH continue Flomax 0.4 daily Mental health-continue sertraline 50 daily DNR/DNI Consistent carbohydrate 3 diet Subcu heparin for DVT prophylaxis Pain pathway Tylenol Shaw LUND,[place] 11/07/17 0413: General Information and HPI MD Statement: I have seen and personally examined EMILY FRANCO JR and documented this H&P. The patient is a 77 year old M who presented with a patient stated chief complaint of []. Source of Information: patient Exam Limitations: no limitations Allergies/Medications Allergies: Coded Allergies: NO KNOWN ALLERGIES (NONE 05/10/17) Home Med list Acetaminophen 325 MG CAPSULE 1 CAP PO PRN PAIN (Reported) Albuterol Sulfate (Proair Hfa) 90 MCG HFA.AER.AD 2 PUF INH Q4 COPD Aspirin (Aspirin*) 81 MG TAB.CHEW 1 TAB PO DAILY heart (Reported) Atorvastatin Calcium (Lipitor) 40 MG TABLET 1 TAB PO DAILY cholesterol ( Reported) Budesonide/Formoterol Fumarate (Symbicort 160-4.5 Mcg Inhaler) 160 MCG-4.5 MCG/ ACTUATION HFA.AER.AD 2 PUF INH BID COPD (Reported) Carvedilol 6.25 MG TABLET 1 TAB PO BID HEART/BP (Reported) Clopidogrel Bisulfate (Clopidogrel) 75 MG TABLET 1 TAB PO DAILY BLOOD THINNER (Reported) Empagliflozin (Jardiance) 10 MG TABLET 1 TAB PO DAILY DM (Reported) Furosemide (Lasix) 20 MG TABLET 1 TAB PO DAILY CHF (Reported) Insulin Aspart, Recombinant (Novolog Flexpen) 100 UNIT/ML INSULN.PEN 0 SC SEE ADMIN CRITERIA DM PLEASE check your blood sugar 3 times daily before meals and at bedtime and . FOLLOW 80 - 150 MG/DL 9 UNITS 151- 200 MG/DL 11 UNITS 201- 250 MG/DL 13 UNITS 251- 300 MG/DL 15 UNITS 301- 350 MG/DL 17 UNITS 351 - 400MG/DL 19 UNITS >400 MG/DL 20 UNITS AND CALL YOUR DR. Insulin Detemir (Levemir) 100 UNIT/ML VIAL 20 UNITS SC QAM DM (Reported) Levothyroxine Sodium 100 MCG TABLET 1.5 TAB PO DAILY HYPOTHYROID (Reported) Nitroglycerin (Nitrostat) 0.4 MG TAB.SUBL 1 TAB SL AD PRN CHEST PAIN ( Reported) 1st sign of attack; may repeat every 5 minutes until relief; if pain persists after 3 tablets in 15 minutes, prompt medical att Omeprazole 40 MG CAPSULE.DR 1 CAP PO DAILY GI (Reported) Prednisone 10 MG TABLET 1.5 TAB PO DAILY STEROID (Reported) Ranolazine (Ranexa) 500 MG TAB.ER.12H 1 TAB PO BID heart (Reported) Sertraline HCl 50 MG TABLET 1 TAB PO DAILY MENTAL HEALTH (Reported) Tamsulosin HCl (Flomax) 0.4 MG CAP.ER.24H 1 CAP PO QHS prostate Please take at bed time to avoid low blood pressure during the day. Tiotropium [place] (Spiriva) 18 MCG CAP.W.DEV 1 CAP INH DAILY COPD (Reported) Past History Medical History Respiratory: COPD Endocrine: hypothyroidism Blood Disorders: DVT Cancer(s): lung cancer Surgical History Surgical History: CABG, CAROTID ARTECTOMY nerve thermoablation to reduce back pain Past Family/Social History Psychosocial History Smoking Status: Former Smoker ETOH Use: denies use Illicit Drug Use: denies illicit drug use Employment History Employment Retired Review of Systems Review of Systems Constitutional: Reports: see HPI. Exam & Diagnostic Data Last 24 Hrs of Vital Signs/I&O Vital Signs Date Time Temp Pulse Resp B/P B/P Pulse O2 O2 Flow FiO2 Mean Ox Delivery Rate 11/06 2336 86 10811/067 10811/06 233 86 10811/060 97.8 86 20 108/78 93 11/06 2146 Room Air 11/067 97.8 82 20 122/74 93 Room Air 11/06 1918 97.8 86 18 117/76 96 Room Air 11/06 1638 95 08/19 1557 95 11/06 1512 93 11/06 1448 98.0 88 22 106/69 96 Room Air Intake & Output 11/07 0800 11/07 0000 11/06 1600 Intake Total 200 Output Total Balance 200 Intake, Oral 200 Patient 250 lb 250 lb Weight Physical Exam General Appearance Alert, Oriented X3, Cooperative, No Acute Distress Skin excoriations to BUE/BLE. suspicious moles on back with irregular shape; dark brown to black in color; no surrounding erythema or active bleeding HEENT Atraumatic, PERRLA, EOMI Neck Supple, No JVD Cardiovascular Regular Rate, systolic murmur Lungs expiratory wheeze heard over RUL otherwise CTA Abdomen Normal Bowel Sounds, Soft, No Tenderness Extremities 2+pitting edema BLE, unable to palpate pedal pulses 2/2 edema; cap refill <2sec Last 24 Hrs of Labs/Abimael: Laboratory Tests 11/06/17 1508: Anion Gap 7, Estimated GFR 39 L, BUN/Creatinine Ratio 20.0, Glucose 164 H, Calcium 8.6, Total Bilirubin 0.8, AST 27, ALT 86 H, Alkaline Phosphatase 100, Troponin I 0.06, Total Protein 5.6 L, Albumin 3.3 L, Globulin 2.3, Albumin/ Globulin Ratio 1.4, CBC w Diff NO MAN DIFF REQ, RBC 3.29 L, MCV 103.8 H, MCH 34.5 H, MCHC 33.2, RDW 17.4 H, MPV 8.4, Gran % 83.6 H, Lymphocytes % 7.3 L, Monocytes % 8.5, Eosinophils % 0.5, Basophils % 0.1, Absolute Granulocytes 7.3 H, Absolute Lymphocytes 0.6 L, Absolute Monocytes 0.7 H, Absolute Eosinophils 0, Absolute Basophils 0 Core Measures/Misc (12/05) Sepsis (View protocol) If YES complete Sepsis Event Note If YES complete Sepsis Event Note Attending MD Review Statement Attending Statement Attending MD Statement: examined this patient, discuss w/resident/PA/PROCESSING TALC AND BORATE SUPERVISOR, agreed w/resident/PA/PROCESSING TALC AND BORATE SUPERVISOR, reviewed EMR data (avail), amended to note Attending Assessment/Plan: This patient is a 77 year old male with a significant past medical history for CABG (1988), CAD with stents (), h/o DVT (5 yrs ago), IDDM (dx 3months ago) , COPD, Small Cell lung CA (last dose of radiation 3 months ago), ischemic cardiomyopathy with EF 20% s/p defibrillator placement (Mar 2017), s/p carotid endarterectomy right side (1997), hypothyroid, HTN, BPH, PATTI on CPAP presenting with a two day history of progressive SOB. The symptoms developed suddenly and he becomes severely SOB ambulating from kitchen to living room (approx. 25ft). He is unable to climb stairs without getting on his hands and knees and taking breaks. While in the ED the patient remained afebrile with his blood pressure running 108/80 and his pulse ox slightly low at 93% room air. B UN 34/creatinine 1.7, ALT 86, CXR - Opacity projecting over the LEFT lower lobe probably an infiltrate atelectasis and/or pleural effusion, EKG - NSR, rate (85), LVH, IVCD, Prior EKG: unchanged. The patient will be admitted to general medicine for acute insect limitation of COPD. IV steroids, antibiotics, neb treatments and maintenance of his high blood sugar worsened by the steroids. DNR/DNI
[2017-11-06] MEDS ORDERED: LASIX20 M1 PO (20:49)
[2017-11-06] MEDS ORDERED: LEVOTHYROXINE100 MC1 PO (20:51)
[2017-11-06 22:00] VITALS: BP 108/78
[2017-11-07 06:15] VITALS: BP 130/86
--- NOTE | 2017-11-07 07:54 | PN- Housestaff ---
Janee Ayala 11/07/17 0754: Subjective Follow-up For: COPD exacerbation Subjective: Patient was seen and examined at bedside. He says he is not doing any better. He is resting comforatbly and saturating well on room air. However, he reports he gets short of breath when he walks as little as to the door of the room. Denies fever, chills, nausea, vomiting, chest pain. Review of Systems Constitutional: Reports: see HPI. Objective Last 24 Hrs of Vital Signs/I&O Vital Signs Date Time Temp Pulse Resp B/P B/P Pulse O2 O2 Flow FiO2 Mean Ox Delivery Rate 11/07 0615 97.5 91 22 130/86 93 Room Air 11/06 2337 86 108/78 11/06 2337 108/78 11/06 2336 86 108/78 11/06 2200 97.8 86 20 108/78 93 11/06 2146 Room Air 11/06 2117 97.8 82 20 122/74 93 Room Air 11/06 1918 97.8 86 18 117/76 96 Room Air 11/06 1638 95 11/06 1557 95 11/06 1512 93 11/06 1448 98.0 88 22 106/69 96 Room Air Intake & Output 11/07 1600 11/07 0800 11/07 0000 Intake Total 200 Output Total Balance 200 Intake, Oral 200 Number 0 Bowel Movements Patient 250 lb Weight Physical Exam General Appearance: Alert, Oriented X3, Cooperative, No Acute Distress Skin: No Rashes Neck: Supple Cardiovascular: Regular Rate, Normal S1, Normal S2 Lungs: b/l scattered crackles Abdomen: Normal Bowel Sounds, Soft, No Tenderness Extremities: No Edema, Normal Pulses Assessment/Plan Assessment: 77 year old male with extensive PMH s/p CABG (1988), CAD with stents (), h/ o DVT (5 yrs ago), IDDM (dx 3months ago), COPD, Small Cell lung CA (last dose of radiation 3 months ago), ischemic cardiomyopathy with EF 20% s/p defibrillator placement (Mar 2017), s/p carotid endarterectomy right side (1997), hypothryroid , HTN, BPH, PATTI on CPAP at [facility] presenting with two day history of progressive SOB. He states his symptoms developed suddenly. Problem List: 1. Acute COPD exacerbation vs CHF exacerbation 2. CKD stage 3 3. Elevated ALT 4. Thrombocytopenia 5. h/o IDDM Vitals were stable Labs: WBC 7.2 H/H 11.4/33.5 Plt 107 BUN/Cr 34/1.5 ALT 86 Alb 3.3 ProBNP:5960 Portable CXR: IMPRESSION: Opacity projecting over the LEFT lower lobe probably an infiltrate atelectasis and/or pleural effusion. Underlying vascular vascular congestion. 1.Acute COPD exacerbation with CHF exacerbation ( Chronic Systolic Heart Failure with EF 20%) -SoluMedrol 40mg IV Q8hr then taper -Azithromycin 5 day course -Duonebs -Oxygen supplementation as needed to maintain sats >90% but less than 93%; not requiring oxygen currently -Lasix 40mg PO, with stat dose of Lasix 20mg iv 2.CKD stage 3 -continue to monitor 3.Elevated ALT-may be medication related -monitor 4.Thrombocytopenia-may be 2/2 viral infection vs bacterial vs medication induced vs nutritional deficiency (albumin 3.3) vs malignancy -continue to monitor -hold chemical prophylaxis; ALPS and ambulation only 5.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 CKD stage 3 secondary to diabetes 2. Small cell lung cancer in adult 3. IDDM (insulin dependent diabetes mellitus) 4. Thrombocytopenia 5. CHF exacerbation 6. COPD exacerbation 7. Exertional dyspnea Pain Ratin Pain Location: na Pain Goal: Remain pain free Pain Plan: na Tomorrow's Labs & Rationales: cbc and bep with hepatic function Zoraida Farrell 11/07/17 1211: Attending MD Review Statement Attending Statement Attending MD Statement: examined this patient, discuss w/resident/PA/WAX COATING MACHINE TENDER, agreed w/resident/PA/WAX COATING MACHINE TENDER, discussed with family, reviewed EMR data (avail), discussed with nursing, discussed with case mgmt, reviewed images, amended to note Attending Assessment/Plan: Patient seen/examined bedside. Patient denies any new complaints. He has mild use of accessory msucles. He has shortness of breath on exertion. Vitals stable. Patient admitted here for COPD exaceraton in smoking history with lung cancer now found to have left sided pleural effsuion which was not present on Apr 2017 CT chest. Continue with iv steroids, azithromycin, o2 supplementation as needed, TRCS, check walking pusle oximetry. Obtain CT chest to evaluate new onset pleural effusion. Systolic Heart failure EF 20% rule out exacerbation. Obtain pro bnp. Consider iv lasix. gi.dvt prophyalxis
[2017-11-07 09:02] LABS: ABSOLUTE BASOPHIL COUNT 0 /CUMM (0.0-0.2); ABSOLUTE EOSINOPHIL COUNT 0 /CUMM (0.0-0.7); ABSOLUTE GRANULOCYTE CT 6.9 /CUMM (1.4-6.5); ABSOLUTE LYMPH COUNT 0.3 /CUMM (1.2-3.4); ABSOLUTE MONOCYTE COUNT 0.1 /CUMM (0.10-0.60); BASOPHIL % 0 % (0.0-2.0); EOSINOPHIL % 0 % (0-5); GRANULOCYTE % 95.5 % (42.2-75.2); HEMATOCRIT 33.5 % (42-52); MEAN CORPUSCULAR HGB 34.7 PG (27.0-31.0); MEAN CORPUSCULAR VOLUME 102.1 FL (80.0-94.0); MEAN PLATELET VOLUME 8.6 FL (7.4-10.4); PLATELET COUNT 107 /CUMM (130-400); RBC DISTRIBUTION WIDTH 17.3 % (11.5-14.5); RED BLOOD CELL CT 3.29 /CUMM (4.70-6.10); WHITE BLOOD CELL COUNT 7.2 /CUMM (4.8-10.8)
--- NOTE | 2017-11-07 14:59 | CT SCAN REPORT ---
EXAMINATION: CT CHEST WITHOUT CONTRAST CLINICAL INFORMATION: Shortness of breath. Pleural effusion. COMPARISON: Chest CT 05/10/2017. TECHNIQUE: Multidetector volumetric CT imaging of the chest was done. Axial MIP volume rendering provided. Sagittal and coronal reformatted images were obtained. DLP: 531 mGy-cm FINDINGS: LUNGS: The central airways are patent. There are background changes of emphysema. There is subsegmental atelectasis in the left more than right lower lobes. No dense consolidation is seen. No suspicious pulmonary nodules or masses are seen. There is a nonspecific groundglass opacity in the right lower lobe (series 3 image 30). MEDIASTINUM: Mild cardiomegaly. Left chest wall single lead AICD in place with lead tip terminating in the right ventricle. No pericardial effusion. Postoperative changes of CABG. Atherosclerotic calcifications in the aorta, coronary arteries, and mitral annulus. PLEURA: Small left-sided layering pleural effusion. No pneumothorax. AXILLA: No lymphadenopathy. UPPER ABDOMEN: The unenhanced upper abdominal viscera are within normal limits. Small splenule is noted. There is aneurysmal dilatation of the distal thoracic aorta status which measures up to 5.3 cm and is status graft placement. OSSEOUS STRUCTURES: Multilevel degenerative changes are seen throughout the thoracic spine. No acute fracture is seen. IMPRESSION: - Small left pleural effusion and atelectasis of the left more than right lung bases. - No dense consolidation or mass. Background changes of emphysema. - Cardiomegaly. 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
[2017-11-07 15:42] VITALS: BP 127/78
[2017-11-07 21:38] VITALS: BP 116/74
[2017-11-08 07:33] VITALS: BP 147/79
--- NOTE | 2017-11-08 07:36 | PN- Housestaff ---
Poornima Ayalai 11/08/17 0735: Subjective Follow-up For: CHF exacerbation Subjective: Patient was seen and examined at bedside. He says he does not feel any better. He complains he is not able to sleep lying flat and that he has to sit up to be able to breathe. Denies cough, chest pain, nausea, vomiting, palpitations. Review of Systems Constitutional: Reports: see HPI. Objective Last 24 Hrs of Vital Signs/I&O Vital Signs Date Time Temp Pulse Resp B/P B/P Pulse O2 O2 Flow FiO2 Mean Ox Delivery Rate 11/08 0916 95 Room Air 11/08 0817 80 128/82 11/08 0817 80 128/82 11/08 0800 Room Air 11/08 0733 97.6 81 20 147/79 91 11/08 0000 Room Air 11/07 2138 97.9 90 20 116/74 94 CPAP 11/07 2041 100 93 11/07 2020 118/70 11/08 2019 118/70 11/07 2020 118/70 11/07 1854 Room Air Room Air 11/07 1542 97.9 89 18 127/78 95 Room Air Physical Exam General Appearance: Alert, Oriented X3, Cooperative, No Acute Distress Neck: Supple Cardiovascular: Regular Rate, Normal S1, Normal S2 Lungs: b/l crackles Abdomen: Normal Bowel Sounds, Soft, No Tenderness Assessment/Plan Assessment: 77 year old male with extensive PMH s/p CABG (1988), CAD with stents (), h/ o DVT (5 yrs ago), IDDM (dx 3months ago), COPD, Small Cell lung CA (last dose of radiation 3 months ago), ischemic cardiomyopathy with EF 20% s/p defibrillator placement (Mar 2017), s/p carotid endarterectomy right side (1997), hypothryroid , HTN, BPH, PATTI on CPAP at [facility] presenting with two day history of progressive SOB. He states his symptoms developed suddenly. He does endorse orthopnea and PND. In the setting of acutely elevated Pro BNP, CHF exacerbation would be more likely. Problem List: 1. Acute COPD exacerbation vs CHF exacerbation 2. CKD stage 3 3. Elevated ALT 4. Thrombocytopenia 5. h/o IDDM Vitals were stable Labs: WBC 12.0 H/H 11.5 Plt 117 BUN/Cr 42/1.4 ProBNP:5960 Portable CXR: IMPRESSION: Opacity projecting over the LEFT lower lobe probably an infiltrate atelectasis and/or pleural effusion. Underlying vascular vascular congestion. 1.Acute COPD exacerbation with CHF exacerbation ( Chronic Systolic Heart Failure with EF 20%) -Prednisone 40mg. Will taper from tomorrow. -Azithromycin 5 day course. Day 3. -Duonebs as needed -Oxygen supplementation as needed to maintain sats >90% but less than 93%; not requiring oxygen currently. Saturating well at room air -Patient has a history of chronic systolic heart failure with an EF of 20% s/p defibrillator placement. -Reports orthopnea and PND in the setting of bilateral crackles. 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 Small cell lung cancer in adult 2. CKD stage 3 secondary to diabetes 3. IDDM (insulin dependent diabetes mellitus) 4. Thrombocytopenia 5. CHF exacerbation 6. COPD exacerbation 7. Exertional dyspnea 8. Renal insufficiency Pain Ratin Pain Location: na Pain Goal: Remain pain free Pain Plan: na Tomorrow's Labs & Rationales: cbc and bep Zoraida Farrell 11/08/17 1107: Attending MD Review Statement Attending Statement Attending MD Statement: examined this patient, discuss w/resident/PA/MAINFRAME SYSTEMS ENGINEER, agreed w/resident/PA/MAINFRAME SYSTEMS ENGINEER, discussed with family, reviewed EMR data (avail), discussed with nursing, discussed with case mgmt, reviewed images, amended to note Attending Assessment/Plan: Patient seen/examined bedside. He has mild use of accessory msucles. He has shortness of breath on exertion. orthopnea +, PND+. Vitals stable. Patient admitted here for COPD exaceraton and acute on chronic CHF exacerbation in smoking history with lung cancer now found to have left sided small layered pleural effsuion. Continue with iv lasix, taper steroids, azithromycin, o2 supplementation as needed, TRCS, check walking pusle oximetry. Acute on chronic Systolic Heart failure EF 20% possible exacerbation. Elevtaed pro bnp than baseline. gi.dvt prophyalxis
[2017-11-08 08:38] LABS: ABSOLUTE BASOPHIL COUNT 0 /CUMM (0.0-0.2); ABSOLUTE EOSINOPHIL COUNT 0 /CUMM (0.0-0.7); ABSOLUTE MONOCYTE COUNT 0.4 /CUMM (0.10-0.60); BASOPHIL % 0 % (0.0-2.0); EOSINOPHIL % 0 % (0-5); MEAN PLATELET VOLUME 8.8 FL (7.4-10.4); PLATELET COUNT 117 /CUMM (130-400); RBC DISTRIBUTION WIDTH 17.2 % (11.5-14.5); RED BLOOD CELL CT 3.32 /CUMM (4.70-6.10)
[2017-11-08 09:00] LABS: ABSOLUTE GRANULOCYTE CT 11.4 /CUMM (1.4-6.5); ABSOLUTE LYMPH COUNT 0.2 /CUMM (1.2-3.4); HEMATOCRIT 34.1 % (42-52); MEAN CORPUSCULAR HGB 34.7 PG (27.0-31.0); MEAN CORPUSCULAR HGB CONC 33.8 G/DL (33.0-37.0); MEAN CORPUSCULAR VOLUME 102.9 FL (80.0-94.0)
[2017-11-08 09:45] LABS: GRANULOCYTE % 94.6 % (42.2-75.2)
[2017-11-08 15:30] VITALS: BP 110/70
[2017-11-08 21:37] VITALS: BP 116/57
[2017-11-09 06:35] VITALS: BP 100/70
--- NOTE | 2017-11-09 07:36 | PN- Housestaff ---
Poornima Ayalai 11/09/17 0736: Subjective Follow-up For: CHf and COPD exacerbation Subjective: Patient was seen and examiend at bedside. He says he does not feel any better. He reports he could not sleep at all last night because of not becoming short of breath as soon as he reclined. He says he was up sitting in the chair. According to him, this is a sudden change from his baseline. He apparently sleeps with one pillow under his head and one pillow under his legs at home. He does endorse an improvement in his pedal edema though. Denies fever, chills, nausea, vomiting, chest pain. Review of Systems Constitutional: Reports: see HPI. Objective Last 24 Hrs of Vital Signs/I&O Vital Signs Date Time Temp Pulse Resp B/P B/P Pulse O2 O2 Flow FiO2 Mean Ox Delivery Rate 11/09 0635 97.4 82 20 100/70 94 Room Air 11/09 0000 Room Air 11/09 0000 91 97 11/08 2137 97.6 99 19 116/57 95 Room Air 11/08 2029 116/57 11/08 2021 116/87 11/08 1655 95 Room Air 11/08 1530 98.0 84 18 110/70 94 Room Air 11/08 0916 95 Room Air Intake & Output 11/09 1600 11/09 0800 11/09 0000 Intake Total 240 120 Output Total 400 500 Balance -160 -380 Intake, Oral 240 120 Output, Urine 400 500 Physical Exam General Appearance: Alert, Oriented X3, Cooperative, No Acute Distress Skin: No Rashes Neck: Supple, No JVD Cardiovascular: Regular Rate, Normal S1, Normal S2 Lungs: b/l crackles Abdomen: Normal Bowel Sounds, Soft, No Tenderness Extremities: pedal edema + Last 24 Hrs of Lab/Abimael Results Last 24 Hrs of Labs/Mics: Laboratory Tests 11/09/17 0627: Anion Gap 5, Estimated GFR 49 L, BUN/Creatinine Ratio 33.6 H, CBC w Diff NO MAN DIFF REQ, RBC 3.28 L, MCV 102.5 H, MCH 34.7 H, MCHC 33.9, RDW 17.0 H, MPV 8.8, Gran % 90.0 H, Lymphocytes % 4.2 L, Monocytes % 5.8, Eosinophils % 0, Basophils % 0, Absolute Granulocytes 11.0 H, Absolute Lymphocytes 0.5 L, Absolute Monocytes 0.7 H, Absolute Eosinophils 0, Absolute Basophils 0 Assessment/Plan Assessment: 77 year old male with extensive PMH s/p CABG (1988), CAD with stents (), h/ o DVT (5 yrs ago), IDDM (dx 3months ago), COPD, Small Cell lung CA (last dose of radiation 3 months ago), ischemic cardiomyopathy with EF 20% s/p defibrillator placement (Mar 2017), s/p carotid endarterectomy right side (1997), hypothryroid , HTN, BPH, PATTI on CPAP at [facility] was admitted to the [facility] service for the evaluation and treatment of shortness of breath. He states his symptoms developed suddenly. He does endorse orthopnea and PND. In the setting of acutely elevated Pro BNP, volume overload is a concern. Problem List: 1. Acute COPD exacerbation vs CHF exacerbation 2. CKD stage 3 3. Elevated ALT 4. Thrombocytopenia 5. h/o IDDM Vitals were stable Labs: WBC 12.2, Hgb: 11.4, Plt 120, BUN/Cr 47/1.4 ProBNP:5960 Portable CXR: IMPRESSION: Opacity projecting over the LEFT lower lobe probably an infiltrate atelectasis and/or pleural effusion. Underlying vascular vascular congestion. 1.Acute COPD exacerbation with CHF exacerbation ( Chronic Systolic Heart Failure with EF 20-25%) -Prednisone 30mg. Will taper further. -Azithromycin 5 day course. Day 4. -Duonebs as needed -Oxygen supplementation as needed to maintain sats >90% but less than 93%; not requiring oxygen currently. Saturating well at room air -Patient has a history of chronic systolic heart failure with an EF of 20% s/p defibrillator placement. -Reports orthopnea and PND in the setting of bilateral crackles. -CHF exacerbation > COPD exacerbation -Cardio consult appreciated. 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 CKD stage 3 secondary to diabetes 2. Small cell lung cancer in adult 3. IDDM (insulin dependent diabetes mellitus) 4. Thrombocytopenia 5. CHF exacerbation 6. COPD exacerbation 7. Exertional dyspnea 8. Pedal edema Pain Ratin Pain Location: na Pain Goal: Remain pain free Pain Plan: na Tomorrow's Labs & Rationales: cbc and bep Zoraida Farrell 11/09/17 1122: Attending MD Review Statement Attending Statement Attending MD Statement: examined this patient, discuss w/resident/PA/SUPERVISOR TYPE BAR AND SEGMENT, agreed w/resident/PA/SUPERVISOR TYPE BAR AND SEGMENT, discussed with family, reviewed EMR data (avail), discussed with nursing, discussed with case mgmt, reviewed images, amended to note Attending Assessment/Plan: Patient seen/examined bedside. He has mild use of accessory msucles. He has shortness of breath on exertion. orthopnea +, PND+. Vitals stable. Patient admitted here for COPD exaceraton and acute on chronic CHF exacerbation in smoking history with lung cancer now found to have left sided small layered pleural effsuion. Continue with iv lasix, taper steroids, azithromycin, o2 supplementation as needed, TRCS, walking pusle oximetry. Acute on chronic Systolic Heart failure EF 20% possible exacerbation. Elevtaed pro bnp than baseline. Cardiology consult. gi.dvt prophyalxis
[2017-11-09 08:10] LABS: ABSOLUTE BASOPHIL COUNT 0 /CUMM (0.0-0.2); ABSOLUTE EOSINOPHIL COUNT 0 /CUMM (0.0-0.7); ABSOLUTE LYMPH COUNT 0.5 /CUMM (1.2-3.4); ABSOLUTE MONOCYTE COUNT 0.7 /CUMM (0.10-0.60); BASOPHIL % 0 % (0.0-2.0); EOSINOPHIL % 0 % (0-5); HEMATOCRIT 33.6 % (42-52); MEAN CORPUSCULAR HGB 34.7 PG (27.0-31.0); MEAN CORPUSCULAR HGB CONC 33.9 G/DL (33.0-37.0); MEAN CORPUSCULAR VOLUME 102.5 FL (80.0-94.0); MEAN PLATELET VOLUME 8.8 FL (7.4-10.4); PLATELET COUNT 120 /CUMM (130-400); RED BLOOD CELL CT 3.28 /CUMM (4.70-6.10); WHITE BLOOD CELL COUNT 12.2 /CUMM (4.8-10.8)
--- NOTE | 2017-11-09 12:04 | Cons- Cardiology ---
General Information and HPI Consulting Request Date of Consult: 11/09/17 Requested By: Bud LUND,Zoraida Reason for Consult: Shortness of breath Source of Information: patient, old records History of Present Illness: This is a 77-year-old male with a past medical history of COPD, ischemic cardiomyopathy with prior CABG/PCI, AICD in situ, obstructive sleep apnea, CKD, aortic stenosis, small cell lung cancer, vascular disease with prior EVAR, hypothyroidism, and diabetes who presents to [facility] with progressive shortness of breath over the last few days; he denies associated chest pain but does report the shortness of breath is worse with exertion. He reports a feeling of congestion in his chest with cough that is not productive of much sputum. He denies subjective fevers. He does report orthopnea and increased lower extremity edema. He denies slurring of speech, focal weakness, syncope, or bleeding. Allergies/Medications Allergies: Coded Allergies: NO KNOWN ALLERGIES (NONE 05/10/17) Home Med List: Acetaminophen 325 MG CAPSULE 1 CAP PO PRN PAIN (Reported) Albuterol Sulfate (Proair Hfa) 90 MCG HFA.AER.AD 2 PUF INH Q4 COPD Aspirin (Aspirin*) 81 MG TAB.CHEW 1 TAB PO DAILY heart (Reported) Atorvastatin Calcium (Lipitor) 40 MG TABLET 1 TAB PO DAILY cholesterol ( Reported) Budesonide/Formoterol Fumarate (Symbicort 160-4.5 Mcg Inhaler) 160 MCG-4.5 MCG/ ACTUATION HFA.AER.AD 2 PUF INH BID COPD (Reported) Carvedilol 6.25 MG TABLET 1 TAB PO BID HEART/BP (Reported) Clopidogrel Bisulfate (Clopidogrel) 75 MG TABLET 1 TAB PO DAILY BLOOD THINNER (Reported) Empagliflozin (Jardiance) 10 MG TABLET 1 TAB PO DAILY DM (Reported) Furosemide (Lasix) 20 MG TABLET 1 TAB PO DAILY CHF (Reported) Insulin Aspart, Recombinant (Novolog Flexpen) 100 UNIT/ML INSULN.PEN 0 SC SEE ADMIN CRITERIA DM PLEASE check your blood sugar 3 times daily before meals and at bedtime and . FOLLOW 80 - 150 MG/DL 9 UNITS 151- 200 MG/DL 11 UNITS 201- 250 MG/DL 13 UNITS 251- 300 MG/DL 15 UNITS 301- 350 MG/DL 17 UNITS 351 - 400MG/DL 19 UNITS >400 MG/DL 20 UNITS AND CALL YOUR DR. Insulin Detemir (Levemir) 100 UNIT/ML VIAL 20 UNITS SC QAM DM (Reported) Levothyroxine Sodium 100 MCG TABLET 1.5 TAB PO DAILY HYPOTHYROID (Reported) Nitroglycerin (Nitrostat) 0.4 MG TAB.SUBL 1 TAB SL AD PRN CHEST PAIN ( Reported) 1st sign of attack; may repeat every 5 minutes until relief; if pain persists after 3 tablets in 15 minutes, prompt medical att Omeprazole 40 MG CAPSULE.DR 1 CAP PO DAILY GI (Reported) Prednisone 10 MG TABLET 1.5 TAB PO DAILY STEROID (Reported) Ranolazine (Ranexa) 500 MG TAB.ER.12H 1 TAB PO BID heart (Reported) Sertraline HCl 50 MG TABLET 1 TAB PO DAILY MENTAL HEALTH (Reported) Tamsulosin HCl (Flomax) 0.4 MG CAP.ER.24H 1 CAP PO QHS prostate Please take at bed time to avoid low blood pressure during the day. Tiotropium [place] (Spiriva) 18 MCG CAP.W.DEV 1 CAP INH DAILY COPD (Reported) Current Medications: Current Medications Sig/Penny Start time Last Medication Dose Route Stop Time Status Admin Acetaminophen 650 MG Q6P PRN 11/06 2044 AC PO Albuterol Sulfate 2 PUF Q4P PRN 11/08 1700 AC INH Albuterol Sulfate 3 ML EVERY 4 HRS/AWAKE 11/08 1999 AC 11/09 INH 0859 Albuterol Sulfate 2 PUF Q4 11/06 2200 DC 11/08 INH 1445 Aspirin 81 MG DAILY 11/07 09 AC 11/09 PO 0833 Atorvastatin Calcium 40 MG DAILY 11/07 09 AC 11/09 PO 0835 Azithromycin 250 MG DAILY@2200 11/06 2200 AC 11/08 PO 2021 Benzonatate 100 MG TID PRN 11/06 2315 AC 11/08 PO 2047 Budesonide/ 2 PUF BID 11/06 2100 AC 11/09 Formoterol Fumarate INH 0832 Carvedilol 6.25 MG BID 11/06 2100 AC 11/09 PO 0837 Clopidogrel Bisulfate 75 MG DAILY 11/07 09 AC 11/09 PO 0835 Furosemide 40 MG 7:30 AM, & 4:30 PM 11/09 1630 AC IV Furosemide 0 .STK-MED ONE 11/09 1029 DC IV Furosemide 40 MG BID 11/09 0907 DC 11/09 IV 1033 Furosemide 40 MG DAILY 11/09 0905 DC IV Furosemide 20 MG DAILY 11/07 1329 DC 11/08 IV 11/09 0631 0817 Furosemide 20 MG DAILY 11/07 0900 DC 11/09 PO 0833 Heparin Sodium 5,000 UNIT Q8 11/06 2200 AC 11/09 (Porcine) SC 0547 Insulin Aspart 0 TIDAC/HS 11/08 2100 AC 11/09 SC 0832 Insulin Aspart 0 .STK-MED ONE 11/08 2033 DC SC Insulin Aspart 0 TIDAC 11/06 2100 DC 11/08 SC 1725 Insulin Detemir 25 UNITS QAM 11/09 0900 AC 11/09 SC 0850 Insulin Detemir 20 UNITS QAM 11/07 0900 DC 11/08 SC 0825 Levothyroxine Sodium 0.15 MG DAILY AC 11/07 0700 AC 11/09 PO 0544 Melatonin 0 .STK-MED ONE 11/09 0103 DC PO Melatonin 10 MG ONE TIME ONE 11/09 0100 DC 11/09 PO 11/09 0101 0109 Omeprazole 40 MG DAILY AC 11/07 0700 AC 11/09 PO 0544 Oxycodone/ 1 TAB Q6P PRN 11/06 2045 AC Acetaminophen PO Patient Medication 1 ED ONE ONE 11/08 1415 DC 11/08 Teaching ED 11/08 1416 1756 Prednisone 40 MG DAILY 11/08 0946 AC 11/09 PO 0835 Ranolazine 500 MG BID 11/06 2100 AC 11/09 PO 0837 Sertraline HCl 50 MG DAILY 11/07 0900 AC 11/09 PO 0837 Tamsulosin HCl 0.4 MG AT BEDTIME 11/06 2100 AC 11/08 PO 2028 Tiotropium [place] 1 PUF DAILY 11/07 0900 AC 11/09 INH 0832 Review of Systems Review of Systems: Review of systems as per HPI. The remainder of a 10 point review of systems was reviewed and was otherwise negative. Past History Travel History Traveled to [place] past 21 day No Medical History Blood Transfusion Hx: No Neurological: NONE EENT: NONE Cardiovascular: CARDIAC STENTS CABG CAROTID ARTERY BYPASS DEFIBRILLATOR Respiratory: COPD Gastrointestinal: NONE Hepatic: NONE Renal: NONE Musculoskeletal: NONE Psychiatric: NONE Endocrine: hypothyroidism Blood Disorders: DVT Cancer(s): lung cancer EDGE GLUE MACHINE TENDER/Reproductive: NONE Surgical History Surgical History: CABG, CAROTID ARTECTOMY nerve thermoablation to reduce back pain Family History Relations & Conditions If Any: Relation not specified for: *No pertinent family history Psychosocial History Who Do You Live With? spouse Services at Home: None Primary Language: Nauruan Smoking Status: Former Smoker ETOH Use: denies use Illicit Drug Use: denies illicit drug use Living Will? no Functional Ability ADLs Independent: dressing, eating, toileting, bathing. Ambulation: independent Employment History Employment: Retired ECHO Results (as available) Report: Left ventricular cavity size normal. Left ventricular wall thickness mildly increased. Moderate to severe hypokinesis of the mid to basal inferior wall. Mild distal anteroseptal/anteroapical hypokinesis. Left ventricular ejection fraction is estimated at 45 %. Catheter/pacemaker wire in the right ventricular cavity. Normal right ventricular size and function. Mild left atrial dilatation. Moderate mitral regurgitation. [id number] aortic stenosis (CAITLYN 1.4 cm2 by continuity with a mean gradient of 13 mmHg). Moderate tricuspid regurgitation. RVSP > 45 mmHg. Exam & Diagnostic Data Vital Signs and I&O Vital Signs Date Time Temp Pulse Resp B/P B/P Pulse O2 O2 Flow FiO2 Mean Ox Delivery Rate 11/09 0901 92 Room Air 11/09 0837 88 108/74 11/09 0837 88 108/74 11/09 0635 97.4 82 20 100/70 94 Room Air 11/09 0000 Room Air 11/09 0000 91 97 11/08 2137 97.6 99 19 116/57 95 Room Air 11/08 2029 116/57 11/08 2021 116/87 11/08 1655 95 Room Air 11/08 1530 98.0 84 18 110/70 94 Room Air Intake & Output 11/09 1600 11/09 0800 11/09 0000 11/08 1600 11/08 0800 11/08 0000 Intake Total 240 120 600 Output Total 220 400 500 800 Balance -220 -160 -380 -200 Intake, Oral 240 120 600 Number 1 Bowel Movements Output, Urine 220 400 500 800 Physical Exam: General: no apparent distress. Alert. Eyes: No obvious scleral icterus. HEENT: No jugular venous distention or abnormal jugular venous pulsations. Cardiovascular: Normal intensity S1/S2. Regular. ICD noted, 2 out of 6 systolic murmur Respiratory: Increased air entry at the bases Abdomen: Soft, nontender with no guarding or rebound tenderness. Musculoskeletal: No clubbing or cyanosis noted; 2+ lower extremity edema Skin: warm Neurologic: No gross focal deficits noted. Labs/Abimael Results: Laboratory Tests 11/09 11/08 0627 0920 Chemistry Sodium (137 - 145 mmol/L) 134 L 135 L Potassium (3.5 - 5.1 mmol/L) 4.3 4.2 Chloride (98 - 107 mmol/L) 101 100 Carbon Dioxide (22 - 30 mmol/L) 28 25 Anion Gap (5 - 16) 5 10 BUN (9 - 20 mg/dL) 47 H 42 H Creatinine (0.7 - 1.2 mg/dL) 1.4 H 1.4 H Estimated GFR (>60 ml/min) 49 L 49 L BUN/Creatinine Ratio (7 - 25 %) 33.6 H 30.0 H Hematology CBC w Diff NO MAN DIFF REQ WBC (4.8 - 10.8 /CUMM) 12.2 H RBC (4.70 - 6.10 /CUMM) 3.28 L Hgb (14.0 - 18.0 G/DL) 11.4 L Hct (42 - 52 %) 33.6 L MCV (80.0 - 94.0 FL) 102.5 H MCH (27.0 - 31.0 PG) 34.7 H MCHC (33.0 - 37.0 G/DL) 33.9 RDW (11.5 - 14.5 %) 17.0 H Plt Count (130 - 400 /CUMM) 120 L MPV (7.4 - 10.4 FL) 8.8 Gran % (42.2 - 75.2 %) 90.0 H Lymphocytes % (20.5 - 51.1 %) 4.2 L Monocytes % (1.7 - 9.3 %) 5.8 Eosinophils % (0 - 5 %) 0 Basophils % (0.0 - 2.0 %) 0 Absolute Granulocytes (1.4 - 6.5 /CUMM) 11.0 H Absolute Lymphocytes (1.2 - 3.4 /CUMM) 0.5 L Absolute Monocytes (0.10 - 0.60 /CUMM) 0.7 H Absolute Eosinophils (0.0 - 0.7 /CUMM) 0 Absolute Basophils (0.0 - 0.2 /CUMM) 0 11/08 0705 Hematology CBC w Diff NO MAN DIFF REQ WBC (4.8 - 10.8 /CUMM) 12.0 H RBC (4.70 - 6.10 /CUMM) 3.32 L Hgb (14.0 - 18.0 G/DL) 11.5 L Hct (42 - 52 %) 34.1 L MCV (80.0 - 94.0 FL) 102.9 H MCH (27.0 - 31.0 PG) 34.7 H MCHC (33.0 - 37.0 G/DL) 33.8 RDW (11.5 - 14.5 %) 17.2 H Plt Count (130 - 400 /CUMM) 117 L MPV (7.4 - 10.4 FL) 8.8 Gran % (42.2 - 75.2 %) 94.6 H Lymphocytes % (20.5 - 51.1 %) 2.0 L Monocytes % (1.7 - 9.3 %) 3.4 Eosinophils % (0 - 5 %) 0 Basophils % (0.0 - 2.0 %) 0 Absolute Granulocytes (1.4 - 6.5 /CUMM) 11.4 H Absolute Lymphocytes (1.2 - 3.4 /CUMM) 0.2 L Absolute Monocytes (0.10 - 0.60 /CUMM) 0.4 Absolute Eosinophils (0.0 - 0.7 /CUMM) 0 Absolute Basophils (0.0 - 0.2 /CUMM) 0 Diagnostic Data EKG Results Tracing was personally reviewed and shows a sinus rhythm at 85 bpm with intraventricular conduction delay and PVC CXR Results Opacity projecting over the LEFT lower lobe probably an infiltrate atelectasis and/or pleural effusion. Underlying vascular vascular congestion. Suggest follow-up chest PA and lateral when patient's conditions permits. Other Results CT - Small left pleural effusion and atelectasis of the left more than right lung bases. - No dense consolidation or mass. Background changes of emphysema. - Cardiomegaly. 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 Assessment/Plan Assessment/Plan 1. Shortness of breath likely multifactorial 2. Ischemic cardiomyopathy with prior CABG/PCI 3. AICD in situ 4. Abdominal aortic aneurysm status post prior EVAR 5. Aortic stenosis 6. Small cell lung CA 7. Hypothyroidism 8. Not on ZULAY inhibitor per reoprt due to CKD with hyperkalemia 9. Acute on chronic systolic congestive heart failure 10. COPD/APTTI 11. Diabetes The patient's dyspnea is likely multifactorial but I agree there is a component of volume overload; can continue diuresis with twice daily IV Lasix while monitoring strict I's and O's and daily weights along with daily metabolic panels. Recommend obtaining a repeat echocardiogram. Continue his carvedilol. He may be a candidate for repeat ischemic testing in the future. Brady Arce MD [facility] Consult Acknowledgment - Thank you for your consult request.
[2017-11-09 14:46] VITALS: BP 112/68
[2017-11-09 22:21] VITALS: BP 115/63
--- NOTE | 2017-11-10 07:20 | PN- Housestaff ---
See Addendum Janee Ayala 11/10/17 0720: Subjective Follow-up For: CHF excaerbation COPD exacerbation Subjective: Patient was seen and exmained at bedside. He was resting comfortably. He says he feels no better but he was able to get some sleep last night. He is still sleeping propped up. He denies fever, chills, nausea, vomiting, chest pain, palpitations. Review of Systems Constitutional: Reports: see HPI. Objective Last 24 Hrs of Vital Signs/I&O Vital Signs Date Time Temp Pulse Resp B/P B/P Pulse O2 O2 Flow FiO2 Mean Ox Delivery Rate 11/10 1126 98.0 11/10 1032 78 112/64 11/10 1000 112/64 11/10 0835 94 Room Air Room Air 11/10 0725 95.7 78 18 112/64 92 11/10 0000 92 Room Air 11/09 2221 97.8 87 18 115/63 91 Room Air 11/09 2139 97.8 87 18 115/63 11/09 2139 97.8 87 18 115/63 11/09 2138 97.8 87 18 115/63 11/09 1627 93 Room Air Room Air 11/09 1600 Room Air Room Air 11/09 1446 97.6 84 18 112/68 93 Room Air Intake & Output 11/10 1600 11/10 0800 11/10 0000 Intake Total 480 480 Output Total 1000 1500 Balance -520 -1020 Intake, Oral 480 480 Output, Urine 1000 1500 Patient 252 lb Weight Physical Exam General Appearance: Alert, Oriented X3, Cooperative, No Acute Distress Neck: Supple Cardiovascular: Regular Rate, Normal S1, Normal S2 Lungs: b/l crackles Abdomen: Normal Bowel Sounds, Soft, No Tenderness Extremities: No Edema, Normal Pulses Assessment/Plan Assessment: 77 year old male with extensive PMH s/p CABG (1988), CAD with stents (), h/ o DVT (5 yrs ago), IDDM (dx 3months ago), COPD, Small Cell lung CA (last dose of radiation 3 months ago), ischemic cardiomyopathy with EF 20% s/p defibrillator placement (Mar 2017), s/p carotid endarterectomy right side (1997), hypothryroid , HTN, BPH, PATTI on CPAP at [facility] was admitted to the [facility] service for the evaluation and treatment of shortness of breath. He states his symptoms developed suddenly. He does endorse orthopnea and PND. In the setting of acutely elevated Pro BNP, volume overload is a concern. Problem List: 1. Acute COPD exacerbation vs CHF exacerbation 2. CKD stage 3 3. Elevated ALT 4. Thrombocytopenia 5. h/o IDDM Vitals were stable Labs: WBC 9.4, Hgb: 11.8, Plt 118, BUN/Cr 48/1.4 ProBNP:5960 Portable CXR: IMPRESSION: Opacity projecting over the LEFT lower lobe probably an infiltrate atelectasis and/or pleural effusion. Underlying vascular vascular congestion. 1.Acute COPD exacerbation with CHF exacerbation ( Chronic Systolic Heart Failure with EF 20-25%) -Prednisone 30mg. Will taper further. -Azithromycin 5 day course. Day 4. -Duonebs as needed -Oxygen supplementation as needed to maintain sats >90% but less than 93%; not requiring oxygen currently. Saturating well at room air -Patient has a history of chronic systolic heart failure with an EF of 20% s/p defibrillator placement. -Reports orthopnea and PND in the setting of bilateral crackles. -CHF exacerbation > COPD exacerbation -Cardio consult appreciated. 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 CKD stage 3 secondary to diabetes 2. Small cell lung cancer in adult 3. IDDM (insulin dependent diabetes mellitus) 4. Thrombocytopenia 5. COPD exacerbation 6. Exertional dyspnea 7. CHF exacerbation Pain Ratin Pain Location: none Pain Goal: Remain pain free Pain Plan: none Tomorrow's Labs & Rationales: cbc and bep Zoraida Farrell 11/10/17 1123: Attending MD Review Statement Attending Statement Attending MD Statement: examined this patient, discuss w/resident/PA/BURNING PLANT OPERATOR, agreed w/resident/PA/BURNING PLANT OPERATOR, discussed with family, reviewed EMR data (avail), discussed with nursing, discussed with case mgmt, reviewed images, amended to note Attending Assessment/Plan: Patient seen/examined bedside. He has shortness of breath improved. Lying on his bed on left side. orthopnea +, PND+. Vitals stable. Labs noted with Creatinine stable. Patient admitted here for COPD exaceraton and acute on chronic CHF exacerbation in smoking history with lung cancer now found to have left sided small layered pleural effsuion. Continue with iv lasix, taper steroids, azithromycin, o2 supplementation as needed, TRCS, walking pusle oximetry. Acute on chronic Systolic Heart failure EF 20% possible exacerbation. Elevtaed pro bnp than baseline. Cardiology follow up with ECHO pending. gi.dvt prophyalxis
[2017-11-10 07:25] VITALS: BP 112/64
[2017-11-10 08:13] LABS: ABSOLUTE BASOPHIL COUNT 0 /CUMM (0.0-0.2); ABSOLUTE EOSINOPHIL COUNT 0 /CUMM (0.0-0.7); ABSOLUTE GRANULOCYTE CT 8.1 /CUMM (1.4-6.5); ABSOLUTE LYMPH COUNT 0.5 /CUMM (1.2-3.4); ABSOLUTE MONOCYTE COUNT 0.8 /CUMM (0.10-0.60); BASOPHIL % 0 % (0.0-2.0); EOSINOPHIL % 0 % (0-5); MEAN CORPUSCULAR HGB 34.7 PG (27.0-31.0); MEAN CORPUSCULAR HGB CONC 33.8 G/DL (33.0-37.0); MEAN CORPUSCULAR VOLUME 102.7 FL (80.0-94.0); MEAN PLATELET VOLUME 8.8 FL (7.4-10.4); PLATELET COUNT 118 /CUMM (130-400); RED BLOOD CELL CT 3.41 /CUMM (4.70-6.10); WHITE BLOOD CELL COUNT 9.4 /CUMM (4.8-10.8)
[2017-11-10 09:29] LABS: GRANULOCYTE % 86.5 % (42.2-75.2)
--- NOTE | 2017-11-10 09:43 | PN- Cardiology ---
Subjective Subjective: Patient resting and sleeping soundly quite comfortably. Objective Vital Signs and I&Os Vital Signs Date Time Temp Pulse Resp B/P B/P Pulse O2 O2 Flow FiO2 Mean Ox Delivery Rate 11/10 0835 94 Room Air Room Air 11/10 0725 95.7 78 18 112/64 92 11/10 0000 92 Room Air 11/09 2221 97.8 87 18 115/63 91 Room Air 11/09 2139 97.8 87 18 115/63 11/09 2139 97.8 87 18 115/63 11/09 2138 97.8 87 18 115/63 11/09 1627 93 Room Air Room Air 11/09 1600 Room Air Room Air 11/09 1446 97.6 84 18 112/68 93 Room Air Intake & Output 11/10 1600 11/10 0800 11/10 0000 11/09 1600 11/09 0800 11/09 0000 Intake Total 480 480 720 240 120 Output Total 1000 1500 700 400 500 Balance -520 -1020 20 -160 -380 Intake, Oral 480 480 720 240 120 Output, Urine 1000 1500 700 400 500 Patient 252 lb Weight Physical Exam: On physical exam patient appears moderately obese. Head normocephalic atraumatic Eyes sclera anicteric conjunctiva showed no pallor extraocular muscles were normal. Neck no jugular venous tension no thyroid masses no palpable nodes. Scar previous endarterectomy Chest lungs bilateral scattered expiratory wheezes. Heart regular rhythm with a grade 1/6 to 2/6 systolic murmur Abdomen protuberant bowel sounds normal Extremities edema differential right greater than left. Severe bilateral vascular disease. Neurological no gross motor or sensory deficits Current Medications: Current Medications Sig/Penny Start time Last Medication Dose Route Stop Time Status Admin Acetaminophen 650 MG Q6P PRN 11/06 2044 AC PO Albuterol Sulfate 2 PUF Q4P PRN 11/08 1700 AC INH Albuterol Sulfate 3 ML EVERY 4 HRS/AWAKE 11/08 1999 AC 11/10 INH 0833 Aspirin 81 MG DAILY 11/07 899 AC 11/09 PO 08 Atorvastatin Calcium 40 MG DAILY 11/07 09 AC 11/09 PO 0835 Azithromycin 250 MG DAILY@2200 11/06 2200 AC 11/09 PO 2138 Benzonatate 100 MG TID PRN 11/06 2315 AC 11/10 PO 0612 Budesonide/ 2 PUF BID 11/06 2099 AC 11/09 Formoterol Fumarate INH 2140 Carvedilol 6.25 MG BID 11/06 2099 AC 11/09 PO 2139 Clopidogrel Bisulfate 75 MG DAILY 11/07 09 AC 11/09 PO 0835 Furosemide 40 MG 7:30 AM, & 4:30 PM 11/09 1630 AC 11/10 IV 0730 Furosemide 0 .STK-MED ONE 11/09 1029 DC IV Furosemide 40 MG BID 11/09 0907 DC 11/09 IV 1033 Furosemide 40 MG DAILY 11/09 0905 DC IV Heparin Sodium 5,000 UNIT Q8 11/06 2200 AC 11/10 (Porcine) SC 0604 Insulin Aspart 0 TIDAC/HS 11/08 2099 AC 11/09 SC 2139 Insulin Detemir 25 UNITS QAM 11/09 09 AC 11/09 SC 0850 Levothyroxine Sodium 0.15 MG DAILY AC 11/07 0700 AC 11/10 PO 0605 Omeprazole 40 MG DAILY AC 11/07 07 AC 11/10 PO 0605 Oxycodone/ 1 TAB Q6P PRN 11/06 2044 AC Acetaminophen PO Prednisone 30 MG DAILY 11/10 899 PO Prednisone 40 MG DAILY 11/08 0946 DC 11/09 PO 0835 Ramelteon 8 MG AT BEDTIME NEED.. 11/09 2214 AC 11/09 PO 221 Ramelteon 0 .STK-MED ONE 11/09 2214 DC PO Ranolazine 500 MG BID 11/06 2099 AC 11/09 PO 2138 Sertraline HCl 50 MG DAILY 11/07 09 AC 11/09 PO 0837 Tamsulosin HCl 0.4 MG AT BEDTIME 11/06 2099 AC 11/09 PO 213 Tiotropium Francisco 1 PUF DAILY 11/07 0900 AC 11/09 INH 0832 Results Last 48 Hrs of Labs/Mics: Laboratory Tests 11/10/17 0700: Anion Gap 6, Estimated GFR 54 L, BUN/Creatinine Ratio 36.9 H, CBC w Diff NO MAN DIFF REQ, RBC 3.41 L, MCV 102.7 H, MCH 34.7 H, MCHC 33.8, RDW 17.0 H, MPV 8.8, Gran % 86.5 H, Lymphocytes % 5.3 L, Monocytes % 8.2, Eosinophils % 0, Basophils % 0, Absolute Granulocytes 8.1 H, Absolute Lymphocytes 0.5 L, Absolute Monocytes 0.8 H, Absolute Eosinophils 0, Absolute Basophils 0 11/09/17 0627: Anion Gap 5, Estimated GFR 49 L, BUN/Creatinine Ratio 33.6 H, CBC w Diff NO MAN DIFF REQ, RBC 3.28 L, MCV 102.5 H, MCH 34.7 H, MCHC 33.9, RDW 17.0 H, MPV 8.8, Gran % 90.0 H, Lymphocytes % 4.2 L, Monocytes % 5.8, Eosinophils % 0, Basophils % 0, Absolute Granulocytes 11.0 H, Absolute Lymphocytes 0.5 L, Absolute Monocytes 0.7 H, Absolute Eosinophils 0, Absolute Basophils 0 Recent Imaging Studies: CT scan of the chest reveals - Small left pleural effusion and atelectasis of the left more than right lung bases. - No dense consolidation or mass. Background changes of emphysema. - Cardiomegaly. 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 Assessment/Plan Assessment/Plan In summary this 77-year-old gentleman has following problems 1. Shortness of breath likely multifactorial 2. Ischemic cardiomyopathy with prior CABG/PCI 3. AICD in situ 4. Abdominal aortic aneurysm status post prior EVAR 5. Aortic stenosis 6. Small cell lung CA 7. Hypothyroidism 8. Not on ZULAY inhibitor per reoprt due to CKD with hyperkalemia 9. Acute on chronic systolic congestive heart failure 10. COPD/PATTI 11. Diabetes CT scan of the chest does not show any convincing evidence of significant congestive heart failure. Small left pleural effusion is nonspecific. Echocardiogram has not been done. He currently is receiving parenteral IV Lasix. Await echocardiogram to see if there is any major change from before and if not I would discharge him on double the dose of preadmission diuretics with a slip for electrolytes BUN and creatinine 1 week after discharge. I suspect most of his issues are related to pulmonary. Continue telemetry? Not applicable
--- NOTE | 2017-11-10 13:53 | RADIOLOGY REPORT ---
EXAMINATION: XR PORTABLE CHEST CLINICAL INFORMATION: Shortness of breath. Assess for pulmonary edema. COMPARISON: Chest x-ray 11/06/[address] scan of the chest 11/07/2017. TECHNIQUE: Portable frontal view of the chest was obtained. FINDINGS: The study redemonstrates a left pectoral pacemaker/AICD. There are sequelae of prior median sternotomy. There has been interval decrease in the size of the left pleural effusion compared to prior imaging. Underlying consolidation cannot excluded. The lung alston are moderately well-expanded. The cardiac silhouette is prominent but stable. There is prominence of the central pulmonary vessels. IMPRESSION: 1. There has been interval decrease in the left-sided pleural effusion compared to the prior chest x-ray. There may be underlying consolidation.
[2017-11-10 15:38] VITALS: BP 112/64
[2017-11-10 22:15] VITALS: BP 124/92
[2017-11-11 05:30] VITALS: BP 140/80
--- NOTE | 2017-11-11 07:32 | PN- Housestaff ---
Poornima Ayalai 11/11/17 0732: Subjective Follow-up For: COPD exacerbation CHF exacerbation Subjective: Patient was seen and examined at bedside. He says he does not feel any better. He is still short of breath on minimal exertion but has been able to sleep better. Denies any new episodes of chest pain Review of Systems Constitutional: Reports: see HPI. Objective Last 24 Hrs of Vital Signs/I&O Vital Signs Date Time Temp Pulse Resp B/P B/P Pulse O2 O2 Flow FiO2 Mean Ox Delivery Rate 11/12 0921 92 Room Air 11/12 0617 97.4 75 20 110/68 92 11/12 0000 Room Air 11/11 2254 94 Room Air Room Air 11/11 2213 98.0 76 18 110/70 95 Room Air 11/11 2136 76 110/70 11/11 2136 76 110/70 11/11 1903 98.3 82 20 172/70 96 Room Air 11/11 1655 92 Nasal 1.0L Cannula 11/11 1600 95 Nasal 1.0L Cannula 11/11 1531 98.1 74 18 110/60 96 Intake & Output 11/12 1600 11/12 0800 11/12 0000 Intake Total 750 Output Total 700 600 Balance -700 150 Intake, Oral 750 Number 0 Bowel Movements Output, Urine 700 600 Patient 244 lb Weight Weight Bed scale Measurement Method Physical Exam General Appearance: Alert, Oriented X3, Cooperative, No Acute Distress Cardiovascular: Regular Rate, Normal S1, Normal S2 Lungs: b/l crackles Abdomen: Normal Bowel Sounds, Soft, No Tenderness Extremities: No Edema, Normal Pulses Assessment/Plan Assessment: 77 year old male with extensive PMH s/p CABG (1988), CAD with stents (), h/ o DVT (5 yrs ago), IDDM (dx 3months ago), COPD, Small Cell lung CA (last dose of radiation 3 months ago), ischemic cardiomyopathy with EF 20% s/p defibrillator placement (Mar 2017), s/p carotid endarterectomy right side (1997), hypothryroid , HTN, BPH, PATTI on CPAP at [facility] was admitted to the [facility] service for the evaluation and treatment of shortness of breath. He states his symptoms developed suddenly. He does endorse orthopnea and PND. In the setting of acutely elevated Pro BNP, volume overload is a concern. Problem List: 1. Acute COPD exacerbation vs CHF exacerbation 2. CKD stage 3 3. Elevated ALT 4. Thrombocytopenia 5. h/o IDDM Vitals were stable Labs: WBC 12.2, Hgb: 11.4, Plt 120, Cr:1.8 ProBNP:5960 Portable CXR: IMPRESSION: Opacity projecting over the LEFT lower lobe probably an infiltrate atelectasis and/or pleural effusion. Underlying vascular vascular congestion. 1.Acute COPD exacerbation with CHF exacerbation ( Chronic Systolic Heart Failure with EF 20-25%) -Prednisone 40mg -Azithromycin 5 day course. Day 5 -Duonebs as needed -Oxygen supplementation as needed to maintain sats >90% but less than 93%; not requiring oxygen currently. Saturating well at room air -Patient has a history of chronic systolic heart failure with an EF of 20% s/p defibrillator placement. -Reports orthopnea and PND in the setting of bilateral crackles. -CHF exacerbation > COPD exacerbation -Cardio consult appreciated. Will follow recommendations * ECHO in the PM later today * Stop PO Lasix * Lasix 40mg daily. 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 CKD stage 3 secondary to diabetes 2. Small cell lung cancer in adult 3. IDDM (insulin dependent diabetes mellitus) 4. Thrombocytopenia 5. CHF exacerbation 6. COPD exacerbation 7. Exertional dyspnea 8. Pedal edema Pain Ratin Pain Location: na Pain Goal: Remain pain free Pain Plan: na Tomorrow's Labs & Rationales: cbc and bep BudZoraida trimble 11/11/17 1220: Attending MD Review Statement Attending Statement Attending MD Statement: examined this patient, discuss w/resident/PA/MANAGER BANK, agreed w/resident/PA/MANAGER BANK, discussed with family, reviewed EMR data (avail), discussed with nursing, discussed with case mgmt, reviewed images, amended to note Attending Assessment/Plan: Patient seen/examined bedside. He has shortness of breath improved. Lying on his bed on left side. orthopnea +, PND+. Vitals stable. Labs noted with Creatinine stable. Patient admitted here for COPD exaceraton and acute on chronic CHF exacerbation in smoking history with stage 1 lung cancer s/p radiation now found to have left sided small layered pleural effsuion. Inform Pulmonary Dr Damico. Continue with iv lasix, c/w steroids, azithromycin, o2 supplementation as needed , TRCS, walking pusle oximetry before discharge Acute on chronic Systolic Heart failure EF 20% possible exacerbation. Elevtaed pro bnp than baseline. Cardiology follow up with ECHO pending. Mild renal insuffuiciecny Cr 1.8, decrease lasix 40 mg iv daily. Consult nephrology. gi.dvt prophyalxis Spoke to at length about ongoing patient care.
[2017-11-11 08:23] LABS: ABSOLUTE BASOPHIL COUNT 0 /CUMM (0.0-0.2); ABSOLUTE EOSINOPHIL COUNT 0 /CUMM (0.0-0.7); ABSOLUTE GRANULOCYTE CT 7.8 /CUMM (1.4-6.5); ABSOLUTE LYMPH COUNT 0.6 /CUMM (1.2-3.4); ABSOLUTE MONOCYTE COUNT 0.6 /CUMM (0.10-0.60); BASOPHIL % 0.1 % (0.0-2.0); EOSINOPHIL % 0.1 % (0-5); GRANULOCYTE % 86.8 % (42.2-75.2); MEAN CORPUSCULAR HGB 34.5 PG (27.0-31.0); MEAN CORPUSCULAR HGB CONC 33.5 G/DL (33.0-37.0); MEAN CORPUSCULAR VOLUME 103.2 FL (80.0-94.0); MEAN PLATELET VOLUME 8.6 FL (7.4-10.4); PLATELET COUNT 126 /CUMM (130-400); RBC DISTRIBUTION WIDTH 17.1 % (11.5-14.5)
--- NOTE | 2017-11-11 12:19 | PN- Cardiology ---
Subjective Subjective: Patient still complains of some chest congestion. Also still with lower extremity edema. Objective Vital Signs and I&Os Vital Signs Date Time Temp Pulse Resp B/P B/P Pulse O2 O2 Flow FiO2 Mean Ox Delivery Rate 11/11 1107 93 Room Air Room Air 11/11 0820 98.0 65 20 140/80 11/11 0820 98.0 65 20 140/80 11/11 0647 94 Room Air 11/11 0530 98.0 65 20 140/80 96 Nasal 2.0L Cannula 11/11 0000 Room Air 11/10 2215 98.0 91 20 124/92 96 Nasal 2.0L Cannula 11/10 205 90 124/92 11/10 2049 90 124/92 11/10 2048 90 124/92 11/10 Room Air 11/10 1538 98.0 93 18 112/64 93 Room Air Intake & Output 11/11 1600 11/11 0800 11/11 0000 11/10 1600 11/10 0800 11/10 0000 Intake Total 480 620 480 480 Output Total 1650 4785 802 4179 1500 Balance -1650 -720 -180 -520 -1020 Intake, Oral 480 620 480 480 Number 1 0 Bowel Movements Output, Urine 1650 2731 466 5291 1500 Patient 248 lb 252 lb Weight Physical Exam: General: no apparent distress. Alert. Eyes: No obvious scleral icterus. HEENT: No jugular venous distention or abnormal jugular venous pulsations. Cardiovascular: Normal intensity S1/S2. Regular. ICD noted, 2 out of 6 systolic murmur Respiratory: Increased air entry at the bases Abdomen: Soft, nontender with no guarding or rebound tenderness. Musculoskeletal: No clubbing or cyanosis noted; 2+ lower extremity edema Skin: warm Neurologic: No gross focal deficits noted. Current Medications: Current Medications Sig/Penny Start time Last Medication Dose Route Stop Time Status Admin Acetaminophen 650 MG Q6P PRN 11/06 2044 AC PO Albuterol Sulfate 2 PUF Q4P PRN 11/08 1700 AC INH Albuterol Sulfate 3 ML EVERY 4 HRS/AWAKE 11/08 1999 AC 11/11 INH 1105 Aspirin 81 MG DAILY 11/07 899 AC 11/11 PO 0820 Atorvastatin Calcium 40 MG DAILY 11/07 09 AC 11/11 PO 0820 Azithromycin 250 MG DAILY@2200 11/06 2199 AC 11/10 PO 211 Benzonatate 100 MG TID PRN 11/06 2315 AC 11/11 PO 0048 Budesonide/ 2 PUF BID 11/06 2099 AC 11/11 Formoterol Fumarate INH 0819 Carvedilol 6.25 MG BID 11/06 2099 AC 11/11 PO 0820 Clopidogrel Bisulfate 75 MG DAILY 11/07 09 AC 11/11 PO 0820 Furosemide 40 MG DAILY 11/11 0902 AC 11/11 IV 0948 Furosemide 40 MG 7:30 AM, & 4:30 PM 11/09 1630 DC 11/11 IV 0819 Guaifenesin 600 MG Q12 11/11 1037 AC PO Heparin Sodium 5,000 UNIT Q8 11/06 2200 AC 11/11 (Porcine) SC 0542 Insulin Aspart 0 TIDAC/HS 11/08 2099 AC 11/10 SC 2048 Insulin Detemir 25 UNITS QAM 11/09 09 AC 11/11 SC 0819 Levothyroxine Sodium 0.15 MG DAILY AC 11/07 07 AC 11/11 PO 0542 Nitroglycerin 0.5 GM Q6P PRN 11/10 1300 AC TOP Nitroglycerin 0 .STK-MED ONE 11/10 1217 DC Nitroglycerin 0.4 MG ONCE ONE 11/10 1215 DC 11/10 SL 11/10 1216 1218 Omeprazole 40 MG DAILY AC 11/07 07 AC 11/11 PO 0542 Oxycodone/ 1 TAB Q6P PRN 11/06 2045 AC Acetaminophen PO Patient Medication 1 ED ONE ONE 11/10 1815 DC 11/10 Teaching ED 11/10 1816 1834 Prednisone 40 MG DAILY 11/12 09 AC PO Prednisone 20 MG DAILY 11/11 09 DC PO Prednisone 30 MG DAILY 11/10 0900 DC 11/10 PO 1000 Ramelteon 8 MG AT BEDTIME NEED.. 11/09 2215 AC 11/11 PO 0048 Ranolazine 500 MG BID 11/06 2099 AC 11/11 PO 0820 Sertraline HCl 50 MG DAILY 11/07 09 AC 11/11 PO 0820 Tamsulosin HCl 0.4 MG AT BEDTIME 11/06 2099 AC 11/10 PO 2050 Tiotropium [place] 1 PUF DAILY 11/07 09 AC 11/11 INH 0820 Results Last 48 Hrs of Labs/Mics: Laboratory Tests 11/11/17 0714: Anion Gap 3 L, Estimated GFR 37 L, BUN/Creatinine Ratio 27.2 H, CBC w Diff MAN DIFF ORDERED, RBC 3.40 L, MCV 103.2 H, MCH 34.5 H, MCHC 33.5, RDW 17.1 H , MPV 8.6, Gran % 86.8 H, Lymphocytes % 6.8 L, Monocytes % 6.2, Eosinophils % 0.1, Basophils % 0.1, Absolute Granulocytes 7.8 H, Segmented Neutrophils 91 H, Band Neutrophils 1, Absolute Lymphocytes 0.6 L, Lymphocytes 3 L, Monocytes 5, Absolute Monocytes 0.6, Absolute Eosinophils 0, Absolute Basophils 0, Nucleated RBCs 1 H, Platelet Estimate VERIFIED BY SMEAR, Anisocytosis 1+, Macrocytic Cells FEW, Ovalocytes 1+ 11/10/17 1225: Anion Gap 5, Estimated GFR 46 L, BUN/Creatinine Ratio 32.7 H, Troponin I 0.07 11/10/17 1214: Troponin I Cancelled 11/10/17 0700: Anion Gap 6, Estimated GFR 54 L, BUN/Creatinine Ratio 36.9 H, TSH 0.308, CBC w Diff NO MAN DIFF REQ, RBC 3.41 L, MCV 102.7 H, MCH 34.7 H, MCHC 33.8, RDW 17.0 H, MPV 8.8, Gran % 86.5 H, Lymphocytes % 5.3 L, Monocytes % 8.2, Eosinophils % 0, Basophils % 0, Absolute Granulocytes 8.1 H, Absolute Lymphocytes 0.5 L, Absolute Monocytes 0.8 H, Absolute Eosinophils 0, Absolute Basophils 0 Recent Imaging Studies: cxr: 1. There has been interval decrease in the left-sided pleural effusion compared to the prior chest x-ray. There may be underlying consolidation. Assessment/Plan Assessment/Plan 1. Shortness of breath likely multifactorial 2. Ischemic cardiomyopathy with prior CABG/PCI 3. AICD in situ 4. Abdominal aortic aneurysm status post prior EVAR 5. Aortic stenosis 6. Small cell lung CA 7. Hypothyroidism 8. Not on ZULAY inhibitor per reoprt due to CKD with hyperkalemia 9. Acute on chronic systolic congestive heart failure 10. COPD/PATTI 11. Diabetes The patient still feels he is congested. He is lying flat without dyspnea but still has lower extremity edema. He has been diuresing but creatinine is elevated today; agree with decreasing the frequency of the IV Lasix while continuing to monitor daily metabolic panels along with strict I's and O's and daily weights. Echocardiogram is pending. He may be a candidate for repeat ischemic testing in the future. His chest x-ray from yesterday showed improvement. Brady Arce MD [facility] Continue telemetry? Not applicable
[2017-11-11 15:31] VITALS: BP 110/60
[2017-11-11 19:03] VITALS: BP 172/70
[2017-11-11 22:13] VITALS: BP 110/70
[2017-11-12 06:17] VITALS: BP 110/68
[2017-11-12 08:33] LABS: ABSOLUTE BASOPHIL COUNT 0 /CUMM (0.0-0.2); ABSOLUTE EOSINOPHIL COUNT 0.1 /CUMM (0.0-0.7); ABSOLUTE GRANULOCYTE CT 7.7 /CUMM (1.4-6.5); ABSOLUTE LYMPH COUNT 0.6 /CUMM (1.2-3.4); ABSOLUTE MONOCYTE COUNT 0.8 /CUMM (0.10-0.60); BASOPHIL % 0 % (0.0-2.0); EOSINOPHIL % 0.6 % (0-5); GRANULOCYTE % 84.3 % (42.2-75.2); HEMATOCRIT 36.3 % (42-52); MEAN CORPUSCULAR HGB CONC 33.3 G/DL (33.0-37.0); MEAN CORPUSCULAR VOLUME 102.3 FL (80.0-94.0); MEAN PLATELET VOLUME 8.8 FL (7.4-10.4); PLATELET COUNT 123 /CUMM (130-400); RBC DISTRIBUTION WIDTH 16.8 % (11.5-14.5); RED BLOOD CELL CT 3.55 /CUMM (4.70-6.10); WHITE BLOOD CELL COUNT 9.1 /CUMM (4.8-10.8)
--- NOTE | 2017-11-12 11:46 | PN- Housestaff ---
Omari Nath 11/12/17 1145: Subjective Follow-up For: COPD exacerbation, CHF exacerbation Subjective: Patient seen and examined at bedside. He was complaining of decreased sleep last night. He feels comfortable when he is sitting chair. He is asking for echo report. He complaining of shortness of breath. He denies fever, chills, chest pain, palpitation, abdominal pain, diarrhea, constipation, no micturition. Review of Systems Constitutional: Reports: see HPI. Objective Last 24 Hrs of Vital Signs/I&O Vital Signs Date Time Temp Pulse Resp B/P B/P Pulse O2 O2 Flow FiO2 Mean Ox Delivery Rate 11/12 1509 97.5 83 18 126/73 93 Room Air 11/12 0921 92 Room Air 11/12 0800 96 Room Air 11/12 0617 97.4 75 20 110/68 92 11/12 0000 Room Air 11/11 2254 94 Room Air Room Air 11/11 2213 98.0 76 18 110/70 95 Room Air 11/11 2136 76 110/70 11/11 2136 76 110/70 11/11 1903 98.3 82 20 172/70 96 Room Air Intake & Output 11/12 1600 11/12 0800 11/12 0000 Intake Total 800 750 Output Total 1200 700 600 Balance -400 -700 150 Intake, Oral 800 750 Number 1 0 Bowel Movements Output, Urine 1200 700 600 Patient 244 lb Weight Weight Bed scale Measurement Method Physical Exam General Appearance: Alert, Oriented X3, Cooperative, No Acute Distress Assessment/Plan Assessment: 77 year old male with extensive PMH s/p CABG (1988), CAD with stents (), h/ o DVT (5 yrs ago), IDDM (dx 3months ago), COPD, Small Cell lung CA (last dose of radiation 3 months ago), ischemic cardiomyopathy with EF 20% s/p defibrillator placement (Mar 2017), s/p carotid endarterectomy right side (1997), hypothryroid , HTN, BPH, PATTI on CPAP at [facility] was admitted to the [facility] service for the evaluation and treatment of shortness of breath. He states his symptoms developed suddenly. He does endorse orthopnea and PND. In the setting of acutely elevated Pro BNP, volume overload is a concern. Problem List: * Acute COPD exacerbation *CHF exacerbation * CKD stage 3 * Thrombocytopenia * IDDM Vitals were stable Labs: WBC 12.2, Hgb: 11.4, Plt 120, Cr:1.8 ProBNP:5960 Portable CXR: IMPRESSION: Opacity projecting over the LEFT lower lobe probably an infiltrate atelectasis and/or pleural effusion. Underlying vascular vascular congestion. 1.Acute COPD exacerbation -Prednisone 40mg -Azithromycin 5 day course. Day 5 -Oxygen supplementation as needed to maintain sats >90% but less than 93%; not requiring oxygen currently. CHF exacerbation ( Chronic Systolic Heart Failure with EF 20-25%): -Cardiology consult appreciated -Composition Teacher and agree that CHF exacerbation could be 1 of the factor for shortness of breath. -Patient has a history of chronic systolic heart failure with an EF of 20% s/p defibrillator placement. 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 ABRAN (acute kidney injury) 2. CHF exacerbation 3. COPD exacerbation 4. Thrombocytopenia 5. CKD stage 3 secondary to diabetes Pain Ratin Pain Location: No pain Pain Goal: Remain pain free Pain Plan: Pain management pathway Tomorrow's Labs & Rationales: CBCs Sukhjinder LUND,Amir 11/12/17 1226: Attending MD Review Statement Attending Statement Attending MD Statement: examined this patient, discuss w/resident/PA/OPTICAL EFFECTS CAMERA OPERATOR, agreed w/resident/PA/OPTICAL EFFECTS CAMERA OPERATOR, reviewed EMR data (avail), discussed with nursing Attending Assessment/Plan: Pt was seen and evaluated. Chart reviewed. Reports MCCLURE and b/l LE swelling. --appreciate cards eval, f/u ECHO results --cont current meds for now --rest of the plan as per resident's note
[2017-11-12 15:09] VITALS: BP 126/73
[2017-11-12 21:12] VITALS: BP 118/69
[2017-11-13 06:39] VITALS: BP 110/68
--- NOTE | 2017-11-13 10:46 | PN- Att Addend ---
Attending Addendum Attending Brief Note Mr. Clem Johnson was seen and evaluated. Chart reviewed. This am had bleeding at the site of Hep inject Vital Signs Date Time Temp Pulse Resp B/P B/P Pulse O2 O2 Flow FiO2 Mean Ox Delivery Rate 11/13 0830 92 Nasal 2.0L Cannula 11/13 0639 97.9 70 20 110/68 94 11/13 0000 Nasal 2.0L Cannula 11/12 2152 77 118/69 11/12 2152 77 118/69 11/12 2151 77 118/69 11/12 2112 97.6 77 18 118/69 97 Nasal 2.0L Cannula 11/12 1815 93 Nasal 2.0L Cannula 11/12 1509 97.5 83 18 126/73 93 Room Air Intake & Output 11/13 1600 11/13 0800 11/13 0000 Intake Total 480 250 Output Total 1050 Balance -570 250 Intake, IV 0 10 Intake, Oral 480 240 Number 0 0 Bowel Movements Output, Urine 1050 Patient 111.187 kg Weight Weight Bed scale Measurement Method GEN: Lying comfortably, AAOx3 HEENT: moist mucosa LUNGS: CTAB HEART: s1s2 ABD: soft, Obese Skin: abd area ecchymotic EXT: b/l LE edema with some oozing of clear fluids Labs/Diagnostics: reviewed CXR: IMPRESSION: 1. There has been interval decrease in the left-sided pleural effusion compared to the prior chest x-ray. There may be underlying consolidation. A/P: 77 year old man with PMHx: s/p CABG (1988), CAD with stents (), aortic stenosis, h/o DVT (5 yrs ago), IDDM (dx 3months ago), COPD, Small Cell lung CA ( last dose of radiation 3 months ago), ischemic cardiomyopathy with EF 20% s/p AICD placement (Mar 2017), AAA s/p EVAR, s/p carotid endarterectomy right side ( 1997), hypothryroid, HTN, BPH, PATTI on CPAP at [facility] a/w [facility] and found to have acute COPD exacerbation. During hospitalization, he was evaluated by Cards. --cont IV diuretics, monitor weight I&Os, cont other cardiac meds --prednisone taper --f/u ECHO results --D/C heparin as pt ambulating
[2017-11-13 14:37] VITALS: BP 128/66
--- NOTE | 2017-11-13 15:42 | ECHOCARDIOGRAM REPORT ---
EMILY FRANCO Age: 77 : 1940 Gender: M Exam Date: 11/12/2017 08:15 Exam Location: [address] [place] [address] Ht (in): 72 Wt (lb): 249 BSA: 2.43 BP: 124 / 62 Ordering Physician: Janee Ayala MD Referring Physician: Janee Ayala MD Technologist: Zuly Vasquez [facility] Room Number: 219-2 Indications: Rhythm: Sinus Technical Quality: good FINDINGS Left Ventricle Severe global hypokinesis of the LV, with LVEF estimated at 25%. Right Ventricle Grossly normal in size and function. Pacer lead is visible in the RV. Right Atrium normal in size. Left Atrium Moderately enlarged LA. Interatrial septum is not well visualized. Mitral Valve mild-moderate central mitral regurgitation. Aortic Valve Sclerotic leaflets, with probably moderate aortic stenosis ( discordant CAITLYN and mean gradient), and mild aortic regurgitation. Tricuspid Valve Pacer lead visible across tricuspid valve. Mild tricuspid regurgitation with RVSP estimated at 35 mmHg. Pulmonic Valve Trace pulmonic regurgitation. Pericardium No evidence of pericardial effusion. Great Vessels Aortic root dimension is normal. CONCLUSIONS Severe global hypokinesis of the LV, with LVEF estimated at 25%. Pacer lead is visible in the RV. Moderately enlarged LA. Mild-moderate central mitral regurgitation. Sclerotic aortic leaflets, with probably moderate aortic stenosis ( discordant CAITLYN and mean gradient), and mild aortic regurgitation. Mild tricuspid regurgitation with RVSP estimated at 35 mmHg. Trace pulmonic regurgitation. Sade Kapoor M.D. (Electronically Signed) Final Date: 13 November 2017 15:41 MEASUREMENTS (Male / Female) Normal Values 2D ECHO LV Diastolic Diameter PLAX 6.3 cm 4.2 - 5.9 / 3.9 - 5.3 cm LV Systolic Diameter PLAX 5.6 cm 2.1 - 4.0 cm LV Fractional Shortening PLAX 11.1 % 25 - 46 % LV Ejection Fraction 2D Teich 23.6 % IVS Diastolic Thickness 1.3 cm LVPW Diastolic Thickness 1.1 cm LV Relative Wall Thickness 0.4 LVOT Diameter 2.0 cm Aortic Root Diameter 3.2 cm LA Systolic Diameter LX 5.4 cm 3.0 - 4.0 / 2.7 - 3.8 cm LA Volume 86.0 cm 18 - 58 / 22 - 52 cm DOPPLER AV Peak Velocity 277.0 cm/s AV Peak Gradient 30.7 mmHg AV Mean Velocity 182.0 cm/s AV Mean Gradient 15.0 mmHg AV Velocity Time Integral 54.3 cm LVOT Peak Velocity 48.9 cm/s LVOT Peak Gradient 1.0 mmHg LVOT Mean Velocity 30.7 cm/s LVOT Mean Gradient 0.0 mmHg LVOT Velocity Time Integral 7.4 cm LVOT Stroke Volume 23.3 cm AV Area Cont Eq vti 0.4 cm AV Area Cont Eq pk 0.6 cm Mitral E Point Velocity 86.4 cm/s Mitral A Point Velocity 51.3 cm/s Mitral E to A Ratio 1.7 MV Deceleration Time 349.0 ms TR Peak Velocity 305.0 cm/s TR Peak Gradient 37.2 mmHg PV Peak Velocity 132.0 cm/s PV Peak Gradient 7.0 mmHg LV E' Lateral Velocity 9.4 cm/s Mitral E to LV E' Lateral Ratio 9.2 LV E' Septal Velocity 5.9 cm/s Mitral E to LV E' Septal Ratio 14.8
[2017-11-13 21:33] VITALS: BP 119/73
[2017-11-14] VITALS (7 sets, daily range): BP systolic 122–152; BP diastolic 68–80
--- NOTE | 2017-11-14 08:34 | PN- Housestaff ---
See Addendum Subjective Follow-up For: CHF exacerbation COPD exacerbation Subjective: The patient was seen and examined at bedside. He does not report any improvement in his symptoms. He was updated on his ECHO results and made aware about the plan of care regarding transferring him down to [facility] floor for further management of his heart failure and further intervention. Review of Systems Constitutional: Denies: chills, diaphoresis, fever, malaise, weakness. Objective Last 24 Hrs of Vital Signs/I&O Vital Signs Date Time Temp Pulse Resp B/P B/P Pulse O2 O2 Flow FiO2 Mean Ox Delivery Rate 11/14 1104 97.5 85 20 122/68 90 Room Air 11/14 0910 93 Room Air 11/14 0813 118/64 11/14 0800 92 Room Air 11/14 0635 98.7 72 18 124/72 92 Room Air 11/14 0000 96 Nasal 2.0L Cannula 11/13 2224 78 119/73 11/13 2224 78 119/73 11/13 2223 78 119/73 11/13 2133 97.9 78 19 119/73 96 Nasal 2.0L Cannula 11/13 1630 88 Room Air 11/13 1437 97.9 81 20 128/66 95 Nasal 2.0L Cannula Intake & Output 11/14 1600 11/14 0800 11/14 0000 Intake Total 600 300 Output Total 800 200 350 Balance -800 400 -50 Intake, Oral 600 300 Output, Urine 800 200 350 Patient 248 lb Weight Physical Exam General Appearance: Alert, Oriented X3, Cooperative, No Acute Distress Neck: Supple Cardiovascular: Normal S1, Normal S2 Lungs: bilateral scattered wheeze Abdomen: Normal Bowel Sounds, Soft, No Tenderness Vascular: Pulses Symmetrical Assessment/Plan Assessment: 1.Acute COPD exacerbation with CHF exacerbation ( Chronic Systolic Heart Failure with EF 20-25%) -He contiues to have bilateral scattered wheeze which is unchanged since his admission -He is on Prednisone 40mg. Please call for Pulmonary consult -He was given a 5 day course of Azithromycin -Duonebs as needed -He has been saturating well on room air. However, he did need Oxygen yestreday when his saturations dropped to 88%. -He reports orthopnea and has not been able to sleep flat. He uses only one pillow at baseline -Cardiology was consulted and we were recommended to transfer the patient to Telemetry for Dobutamine followed by a repeat ECHO and a subsequent decision to proceed with a possible TAVR in the setitng of his severe aortic stenosis 2.CKD stage 3 -We continued to monitor him. Lasix was switched from BID to once daily in the setting of worsening creatinine. -Creatinine stable at baseline of 1.4 today. -The patient follows regularly. He is due to be consulted for his recommendations 3.Elevated ALT-may be medication related -Medication related vs Congestive hepatopathy secondary to heart failure -We continue to monitor 4.Thrombocytopenia-may be 2/2 viral infection vs bacterial vs medication induced vs nutritional deficiency (albumin 3.3) -Was being monitored -The patient is not on chemical prophylaxis at this time. 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 Problem List: 1. CKD stage 3 secondary to diabetes 2. Small cell lung cancer in adult 3. IDDM (insulin dependent diabetes mellitus) 4. Thrombocytopenia 5. CHF exacerbation 6. COPD exacerbation 7. Exertional dyspnea 8. Pedal edema Pain Ratin Pain Location: none Pain Goal: Remain pain free Pain Plan: none Tomorrow's Labs & Rationales: cbc and bep
[2017-11-14 09:01] LABS: ABSOLUTE BASOPHIL COUNT 0 /CUMM (0.0-0.2); ABSOLUTE EOSINOPHIL COUNT 0 /CUMM (0.0-0.7); ABSOLUTE GRANULOCYTE CT 9.6 /CUMM (1.4-6.5); ABSOLUTE LYMPH COUNT 0.6 /CUMM (1.2-3.4); ABSOLUTE MONOCYTE COUNT 0.7 /CUMM (0.10-0.60); BASOPHIL % 0 % (0.0-2.0); EOSINOPHIL % 0.3 % (0-5); MEAN CORPUSCULAR HGB 34.7 PG (27.0-31.0); MEAN CORPUSCULAR HGB CONC 34.1 G/DL (33.0-37.0); MEAN CORPUSCULAR VOLUME 101.9 FL (80.0-94.0); MEAN PLATELET VOLUME 8.6 FL (7.4-10.4); PLATELET COUNT 116 /CUMM (130-400); RBC DISTRIBUTION WIDTH 16.7 % (11.5-14.5); RED BLOOD CELL CT 3.33 /CUMM (4.70-6.10); WHITE BLOOD CELL COUNT 10.9 /CUMM (4.8-10.8)
--- NOTE | 2017-11-14 10:40 | Transfer of Care Summary ---
Hospital Course Course Hospital Course: 77 year old male with extensive PMH s/p CABG (1988), CAD with stents (), h/ o DVT (5 yrs ago), IDDM (dx 3months ago), COPD, Small Cell lung CA (last dose of radiation 3 months ago), ischemic cardiomyopathy with EF 20% s/p defibrillator placement (Mar 2017), s/p carotid endarterectomy right side (1997), hypothryroid , HTN, BPH, PATTI on CPAP at [facility] was admitted to the [facility] service for the evaluation and treatment of shortness of breath. His symptoms apparently developed suddenly. He endorses orthopnea and PND. In the setting of acutely elevated Pro BNP, volume overload was a concern. An ECHO was done with the following results: CONCLUSIONS Severe global hypokinesis of the LV, with LVEF estimated at 25%. Pacer lead is visible in the RV. Moderately enlarged LA. Mild-moderate central mitral regurgitation. Sclerotic aortic leaflets, with probably moderate aortic stenosis ( discordant CAITLYN and mean gradient), and mild aortic regurgitation. Mild tricuspid regurgitation with RVSP estimated at 35 mmHg. Trace pulmonic regurgitation. He is currently being treated for the following conditions: Problem List: 1. Acute COPD exacerbation vs CHF exacerbation 2. CKD stage 3 3. Elevated ALT 4. Thrombocytopenia 5. h/o IDDM 1.Acute COPD exacerbation with CHF exacerbation ( Chronic Systolic Heart Failure with EF 20-25%) -The patient had bilateral wheeze on admission and got short of breath walking as little as 25 ft -He also complains of orthopnea and has to sleep propped up. He uses 1 pillow at baseline at home. -He came to the hospital on Lasix 20mg PO which was increased to 80mg iv BID, was reduced to 40mg BID in the setting of worsening kidney function -He was started on Prednisone 40mg and contiues to be on the same dose -He was given a 5 day course of Azithromycin -Duonebs as needed -He has been saturating well on room air. However, he did need Oxygen yestreday when his saturations dropped to 88%. -He had an episode of 7/10 substernal chest pain along with sinus tachycardia to 130s on 11/11. He was given Morphine 2mg along with one dose of Nitroglycerin. -Cardiology was consulted and we were recommended to transfer the patient to Telemetry for Dobutamine followed by a repeat ECHO and a subsequent decision to proceed with a possible TAVR in the setitng of his severe aortic stenosis 2.CKD stage 3 -We continued to monitor him. Lasix was switched from BID to once daily in the setting of worsening creatinine. -Creatinine stable at baseline of 1.4 today. 3.Elevated ALT-may be medication related -Medication related vs Congestive hepatopathy secondary to heart failure 4.Thrombocytopenia-may be 2/2 viral infection vs bacterial vs medication induced vs nutritional deficiency (albumin 3.3) -Was being monitored -The patient is not on chemical prophylaxis at this time. 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 Pacer lead is visible in the RV. Moderately enlarged LA. Mild-moderate central mitral regurgitation. Sclerotic aortic leaflets, with probably moderate aortic stenosis ( discordant CAITLYN and mean gradient), and mild aortic regurgitation. Mild tricuspid regurgitation with RVSP estimated at 35 mmHg. Trace pulmonic regurgitation. * Assessment/Plan: 1.Acute COPD exacerbation with CHF exacerbation ( Chronic Systolic Heart Failure with EF 20-25%) -He contiues to have bilateral scattered wheeze which is unchanged since his admission -He is on Prednisone 40mg. Please call for Pulmonary consult -He was given a 5 day course of Azithromycin -Duonebs as needed -He has been saturating well on room air. However, he did need Oxygen yestreday when his saturations dropped to 88%. -He reports orthopnea and has not been able to sleep flat. He uses only one pillow at baseline -Cardiology was consulted and we were recommended to transfer the patient to Telemetry for Dobutamine followed by a repeat ECHO and a subsequent decision to proceed with a possible TAVR in the setitng of his severe aortic stenosis 2.CKD stage 3 -We continued to monitor him. Lasix was switched from BID to once daily in the setting of worsening creatinine. -Creatinine stable at baseline of 1.4 today. -The patient follows regularly. He is due to be consulted for his recommendations 3.Elevated ALT-may be medication related -Medication related vs Congestive hepatopathy secondary to heart failure -We continue to monitor 4.Thrombocytopenia-may be 2/2 viral infection vs bacterial vs medication induced vs nutritional deficiency (albumin 3.3) -Was being monitored -The patient is not on chemical prophylaxis at this time. 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
--- NOTE | 2017-11-14 11:10 | Cons- Nephrology ---
General Information and HPI Consulting Request Date of Consult: 11/14/17 Requested By: Bud LUND,Zoraida Reason for Consult: CKD History of Present Illness: 77 YO male with extensive vascular disease, s/p CABG, hypertension, ischemic cardiomyopathy with EF of 25% on recent echo, moderate , COPD/PATTI , left , EVAR. Recently received RT for small cell lung kayla. He has chronic kidney disease with baseline creatinine around 1.5, followed by Dr. Carrero. This is felt to be a result of hypertension/vascular disease with perhaps some component of cardiorenal syndrome. 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 CXR showed a left pleural effusion. He was treated for COPD exacerbation and Lasix, but only slight improvement in edema/MCCLURE. Except for a creatinien of 2.8 reported on 11/11 his creatinine has remained stable and near usuual baseline. FH: no kdieny disease SH: no ethanol abuse, ex smoker Allergies/Medications Allergies: Coded Allergies: NO KNOWN ALLERGIES (NONE 05/10/17) Home Med List: Acetaminophen 325 MG CAPSULE 1 CAP PO PRN PAIN (Reported) Albuterol Sulfate (Proair Hfa) 90 MCG HFA.AER.AD 2 PUF INH Q4 COPD Aspirin (Aspirin*) 81 MG TAB.CHEW 1 TAB PO DAILY heart (Reported) Atorvastatin Calcium (Lipitor) 40 MG TABLET 1 TAB PO DAILY cholesterol ( Reported) Budesonide/Formoterol Fumarate (Symbicort 160-4.5 Mcg Inhaler) 160 MCG-4.5 MCG/ ACTUATION HFA.AER.AD 2 PUF INH BID COPD (Reported) Carvedilol 6.25 MG TABLET 1 TAB PO BID HEART/BP (Reported) Clopidogrel Bisulfate (Clopidogrel) 75 MG TABLET 1 TAB PO DAILY BLOOD THINNER (Reported) Empagliflozin (Jardiance) 10 MG TABLET 1 TAB PO DAILY DM (Reported) Furosemide (Lasix) 20 MG TABLET 1 TAB PO DAILY CHF (Reported) Insulin Aspart, Recombinant (Novolog Flexpen) 100 UNIT/ML INSULN.PEN 0 SC SEE ADMIN CRITERIA DM PLEASE check your blood sugar 3 times daily before meals and at bedtime and . FOLLOW 80 - 150 MG/DL 9 UNITS 151- 200 MG/DL 11 UNITS 201- 250 MG/DL 13 UNITS 251- 300 MG/DL 15 UNITS 301- 350 MG/DL 17 UNITS 351 - 400MG/DL 19 UNITS >400 MG/DL 20 UNITS AND CALL YOUR DR. Insulin Detemir (Levemir) 100 UNIT/ML VIAL 20 UNITS SC QAM DM (Reported) Levothyroxine Sodium 100 MCG TABLET 1.5 TAB PO DAILY HYPOTHYROID (Reported) Nitroglycerin (Nitrostat) 0.4 MG TAB.SUBL 1 TAB SL AD PRN CHEST PAIN ( Reported) 1st sign of attack; may repeat every 5 minutes until relief; if pain persists after 3 tablets in 15 minutes, prompt medical att Omeprazole 40 MG CAPSULE.DR 1 CAP PO DAILY GI (Reported) Prednisone 10 MG TABLET 1.5 TAB PO DAILY STEROID (Reported) Ranolazine (Ranexa) 500 MG TAB.ER.12H 1 TAB PO BID heart (Reported) Sertraline HCl 50 MG TABLET 1 TAB PO DAILY MENTAL HEALTH (Reported) Tamsulosin HCl (Flomax) 0.4 MG CAP.ER.24H 1 CAP PO QHS prostate Please take at bed time to avoid low blood pressure during the day. Tiotropium [place] (Spiriva) 18 MCG CAP.W.DEV 1 CAP INH DAILY COPD (Reported) Current Medications: Current Medications Sig/Penny Start time Last Medication Dose Route Stop Time Status Admin Acetaminophen 650 MG Q6P PRN 11/065 AC PO Albuterol Sulfate 2 PUF Q4P PRN 11/08 1700 AC 11/12 INH 0819 Albuterol Sulfate 3 ML EVERY 4 HRS/AWAKE 11/07 2000 AC 11/14 INH 0832 Aspirin 81 MG DAILY 11/07 09 AC 11/14 PO 0813 Atorvastatin Calcium 40 MG DAILY 11/07 09 AC 11/14 PO 0813 Azithromycin 250 MG DAILY@2200 11/06 2200 DC 11/13 PO 2222 Benzonatate 100 MG TID PRN 11/06 2315 AC 11/13 PO 1450 Budesonide/ 2 PUF BID 11/06 2100 AC 11/14 Formoterol Fumarate INH 08 Carvedilol 6.25 MG BID 11/06 2100 AC 11/14 PO 0813 Clopidogrel Bisulfate 75 MG DAILY 11/07 09 AC 11/14 PO 0818 Furosemide 40 MG DAILY 11/11 0902 AC 11/14 IV 0812 Guaifenesin 600 MG Q12 11/11 1037 AC 11/14 PO 0813 Heparin Sodium 5,000 UNIT Q8 11/06 2200 DC 11/13 (Porcine) SC 0603 Insulin Aspart 0 TIDAC/HS 11/08 2100 AC 11/14 SC 0811 Insulin Detemir 25 UNITS QAM 11/09 0900 AC 11/14 SC 0810 Levothyroxine Sodium 0.15 MG DAILY AC 11/07 0700 AC 11/14 PO 0536 Nitroglycerin 0.5 GM Q6P PRN 11/10 1300 AC TOP Omeprazole 40 MG DAILY AC 11/07 0700 AC 11/14 PO 0537 Oxycodone/ 1 TAB Q6P PRN 11/06 2045 DC Acetaminophen PO Patient Medication 1 ED ONE ONE 11/14 0930 DC Teaching ED 11/14 0931 Prednisone 40 MG DAILY 11/12 09 AC 11/14 PO 0813 Ramelteon 8 MG AT BEDTIME NEED.. 11/09 2215 AC 11/11 PO 2133 Ranolazine 500 MG BID 11/06 2100 AC 11/14 PO 0814 Sertraline HCl 50 MG DAILY 11/07 0900 AC 11/14 PO 0814 Tamsulosin HCl 0.4 MG AT BEDTIME 11/06 2100 AC 11/13 PO 2224 Tiotropium [place] 1 PUF DAILY 11/07 09 AC 11/14 INH 0812 Review of Systems Review of Systems: Negative except as noted above. Past History Travel History Traveled to [place] past 21 day No Medical History Blood Transfusion Hx: No Neurological: NONE EENT: NONE Cardiovascular: CARDIAC STENTS CABG CAROTID ARTERY BYPASS DEFIBRILLATOR Respiratory: COPD Gastrointestinal: NONE Hepatic: NONE Renal: NONE Musculoskeletal: NONE Psychiatric: NONE Endocrine: hypothyroidism Blood Disorders: DVT Cancer(s): lung cancer LOGISTICS INTERN/Reproductive: NONE Surgical History Surgical History: CABG, CAROTID ARTECTOMY nerve thermoablation to reduce back pain Family History Relations & Conditions If Any: Relation not specified for: *No pertinent family history Psychosocial History Who Do You Live With? spouse Services at Home: None Primary Language: Czech Smoking Status: Former Smoker ETOH Use: denies use Illicit Drug Use: denies illicit drug use Living Will? no Functional Ability ADLs Independent: dressing, eating, toileting, bathing. Ambulation: independent Employment History Employment: Retired Exam & Diagnostic Data Vital Signs and I&O Vital Signs Date Time Temp Pulse Resp B/P B/P Pulse O2 O2 Flow FiO2 Mean Ox Delivery Rate 11/14 0910 93 Room Air 11/14 0813 118/64 11/14 0800 92 Room Air 11/14 0635 98.7 72 18 124/72 92 Room Air 11/14 0000 96 Nasal 2.0L Cannula 11/134 78 119/73 11/13 2224 78 119/73 11/13 2223 78 119/73 11/13 2133 97.9 78 19 119/73 96 Nasal 2.0L Cannula 11/13 1630 88 Room Air 11/13 1437 97.9 81 20 128/66 95 Nasal 2.0L Cannula Intake & Output 11/14 1600 11/14 0400 11/13 1600 11/13 0400 11/12 1600 11/12 0400 Intake Total 599 937 7318 250 800 750 Output Total 243 000 8210 500 1900 600 Balance -200 -250 30 -250 -1100 150 Intake, IV 0 10 Intake, Oral 500 318 2359 240 800 750 Number 1 0 1 0 Bowel Movements Output, Urine 720 812 8084 500 1900 600 Patient 248 lb 245 lb 244 lb Weight Weight Bed scale Bed scale Measurement Method Physical Exam: NAD VS as above. Eyes: anicteric, PERRLA Neck: no mass or thyromegally Nodes: negative cervical/inguinla Skin: no rash or induration. CV: no rub or murmur Lungs: decreased breath sound left base, dull to pecussion Abd: non-tender, no organomegaly, BS positive Exts: 2+ pretibial edema and 1+ sacral edema, absent pedal pulses. Neuro: A&O, CN intact, no asterixis. Results Pertinent Lab Results: Laboratory Tests 11/14 11/12 0716 0658 Chemistry Sodium (137 - 145 mmol/L) 134 L 136 L Potassium (3.5 - 5.1 mmol/L) 4.1 3.8 Chloride (98 - 107 mmol/L) 97 L 97 L Carbon Dioxide (22 - 30 mmol/L) 31 H 33 H Anion Gap (5 - 16) 5 5 BUN (9 - 20 mg/dL) 37 H 47 H Creatinine (0.7 - 1.2 mg/dL) 1.5 H 1.4 H Estimated GFR (>60 ml/min) 46 L 49 L BUN/Creatinine Ratio (7 - 25 %) 24.7 33.6 H Hematology CBC w Diff Pending MAN DIFF ORDERED WBC (4.8 - 10.8 /CUMM) Pending 9.1 RBC (4.70 - 6.10 /CUMM) Pending 3.55 L Hgb (14.0 - 18.0 G/DL) Pending 12.1 L Hct (42 - 52 %) Pending 36.3 L MCV (80.0 - 94.0 FL) Pending 102.3 H MCH (27.0 - 31.0 PG) Pending 34.0 H MCHC (33.0 - 37.0 G/DL) Pending 33.3 RDW (11.5 - 14.5 %) Pending 16.8 H Plt Count (130 - 400 /CUMM) Pending 123 L MPV (7.4 - 10.4 FL) Pending 8.8 Gran % (42.2 - 75.2 %) Pending 84.3 H Lymphocytes % (20.5 - 51.1 %) Pending 6.7 L Monocytes % (1.7 - 9.3 %) Pending 8.4 Eosinophils % (0 - 5 %) Pending 0.6 Basophils % (0.0 - 2.0 %) Pending 0 Absolute Granulocytes (1.4 - 6.5 /CUMM) Pending 7.7 H Absolute Lymphocytes (1.2 - 3.4 /CUMM) Pending 0.6 L Absolute Monocytes (0.10 - 0.60 /CUMM) Pending 0.8 H Absolute Eosinophils (0.0 - 0.7 /CUMM) Pending 0.1 Absolute Basophils (0.0 - 0.2 /CUMM) Pending 0 Platelet Estimate (ADEQUATE) DECREASED Polychromasia 1+ Anisocytosis 1+ Macrocytic Cells 1+ Imaging/Other Studies: CXR as noted above. Assessment/Plan Assessment/Recommendations Assessment: CKD stage 3 as noted above. Never has had high grade proteinuria but no UA this admisison. Suspect worsening cardiac function either from LV or . Still volume overloaded on exam. Recommendations: Continue Lasix and diuresis. Getting a trial of dobutamine today with repeat echo to see if is largely functional from low flow. May need to tolerate some worsening pre-renal azotemia to keep edema/MCCLURE under control.
[2017-11-14 11:15] LABS: GRANULOCYTE % 87.7 % (42.2-75.2)
--- NOTE | 2017-11-14 11:54 | PN- Cardiology ---
Subjective Subjective: Patient still reports feeling short of breath with a component of orthopnea and feels his lower extremity edema has not improved. Minimal cough without much sputum. Objective Vital Signs and I&Os Vital Signs Date Time Temp Pulse Resp B/P B/P Pulse O2 O2 Flow FiO2 Mean Ox Delivery Rate 11/14 1113 Room Air 11/14 1104 97.5 85 20 122/68 90 Room Air 11/14 0910 93 Room Air 11/14 0813 118/64 11/14 0800 92 Room Air 11/14 0635 98.7 72 18 124/72 92 Room Air 11/14 0000 96 Nasal 2.0L Cannula 11/13 2224 78 119/73 11/13 2224 78 119/73 11/13 2223 78 119/73 11/13 2133 97.9 78 19 11973 96 Nasal 2.0L Cannula 11/13 1630 88 Room Air 11/13 1437 97.9 81 20 128/66 95 Nasal 2.0L Cannula Intake & Output 11/14 1600 11/14 0800 11/14 0000 11/13 1600 11/13 0800 11/13 0000 Intake Total 600 300 600 480 250 Output Total 800 200 123 884 1774 Balance -800 400 -50 100 -570 250 Intake, IV 0 10 Intake, Oral 600 300 600 480 240 Number 1 0 0 Bowel Movements Output, Urine 800 200 764 510 9776 Patient 248 lb 245 lb Weight Weight Bed scale Measurement Method Physical Exam: General: no apparent distress. Alert. Eyes: No obvious scleral icterus. HEENT: No jugular venous distention or abnormal jugular venous pulsations. Cardiovascular: Normal intensity S1/S2. Regular. ICD noted, 2 out of 6 systolic murmur Respiratory: Increased air entry at the bases Abdomen: Soft, nontender with no guarding or rebound tenderness. Musculoskeletal: No clubbing or cyanosis noted; 2+ lower extremity edema Skin: warm Neurologic: No gross focal deficits noted. Current Medications: Current Medications Sig/Penny Start time Last Medication Dose Route Stop Time Status Admin Acetaminophen 650 MG Q6P PRN 11/06 2044 AC PO Albuterol Sulfate 2 PUF Q4P PRN 11/08 1700 AC 11/12 INH 0819 Albuterol Sulfate 3 ML EVERY 4 HRS/AWAKE 11/08 1999 AC 11/14 INH 0832 Aspirin 81 MG DAILY 11/07 09 AC 11/14 PO 0813 Atorvastatin Calcium 40 MG DAILY 11/07 09 AC 11/14 PO 0813 Azithromycin 250 MG DAILY@2200 11/06 2200 DC 11/13 PO 2222 Benzonatate 100 MG TID PRN 11/06 2315 AC 11/13 PO 1450 Budesonide/ 2 PUF BID 11/06 2100 AC 11/14 Formoterol Fumarate INH 0812 Carvedilol 6.25 MG BID 11/06 2099 AC 11/14 PO 0813 Clopidogrel Bisulfate 75 MG DAILY 11/07 09 AC 11/14 PO 0818 Furosemide 40 MG DAILY 11/11 0902 AC 11/14 IV 0812 Guaifenesin 600 MG Q12 11/11 1037 AC 11/14 PO 0813 Heparin Sodium 5,000 UNIT Q8 11/060 DC 11/13 (Porcine) SC 0603 Insulin Aspart 0 TIDAC/HS 11/08 2099 AC 11/14 SC 0811 Insulin Detemir 25 UNITS QAM 11/09 09 AC 11/14 SC 0810 Levothyroxine Sodium 0.15 MG DAILY AC 11/07 07 AC 11/14 PO 0536 Nitroglycerin 0.5 GM Q6P PRN 11/10 1300 AC TOP Omeprazole 40 MG DAILY AC 11/07 07 AC 11/14 PO 0537 Oxycodone/ 1 TAB Q6P PRN 11/065 DC Acetaminophen PO Patient Medication 1 ED ONE ONE 11/14 0930 DC Teaching ED 11/14 0931 Prednisone 40 MG DAILY 11/12 09 AC 11/14 PO 0813 Ramelteon 8 MG AT BEDTIME NEED.. 11/09 2214 AC 11/11 PO 2133 Ranolazine 500 MG BID 11/06 2099 AC 11/14 PO 0814 Sertraline HCl 50 MG DAILY 11/07 09 AC 11/14 PO 0814 Tamsulosin HCl 0.4 MG AT BEDTIME 11/06 2099 AC 11/13 PO 2224 Tiotropium [place] 1 PUF DAILY 11/07 09 AC 11/14 INH 0812 Results Last 48 Hrs of Labs/Mics: Laboratory Tests 11/14/17 0716: Anion Gap 5, Estimated GFR 46 L, BUN/Creatinine Ratio 24.7, CBC w Diff NO MAN DIFF REQ, RBC 3.33 L, MCV 101.9 H, MCH 34.7 H, MCHC 34.1, RDW 16.7 H, MPV 8.6, Gran % 87.7 H, Lymphocytes % 5.8 L, Monocytes % 6.2, Eosinophils % 0.3, Basophils % 0, Absolute Granulocytes 9.6 H, Absolute Lymphocytes 0.6 L, Absolute Monocytes 0.7 H, Absolute Eosinophils 0, Absolute Basophils 0 Recent Imaging Studies: echo Severe global hypokinesis of the LV, with LVEF estimated at 25%. Pacer lead is visible in the RV. Moderately enlarged LA. Mild-moderate central mitral regurgitation. Sclerotic aortic leaflets, with probably moderate aortic stenosis ( discordant CAITLYN and mean gradient), and mild aortic regurgitation. Mild tricuspid regurgitation with RVSP estimated at 35 mmHg. Trace pulmonic regurgitation. Sade Kapoor M.D. (Electronically Signed) Final Date: 13 November 2017 15:41 Assessment/Plan Assessment/Plan 1. Shortness of breath likely multifactorial 2. Ischemic cardiomyopathy with prior CABG/PCI 3. AICD in situ 4. Abdominal aortic aneurysm status post prior EVAR 5. Aortic stenosis 6. Small cell lung CA 7. Hypothyroidism 8. Not on ZULAY inhibitor per reoprt due to CKD with hyperkalemia 9. Acute on chronic systolic congestive heart failure 10. COPD/PATTI 11. Diabetes The patient continues to feel short of breath and still has significant lower extremity edema. His diuresis was previously limited by increasing creatinine and echocardiogram confirms continued low ejection fraction with possible aortic stenosis; cannot exclude a component of cardiorenal syndrome and recommend initiating dobutamine infusion while continuing to attempt further diuresis; would try and get the dobutamine infusion up to 10 mcg/kg/minute and will eventually need to obtain a repeat limited echocardiogram while on dobutamine to help exclude the possibility of pseudo-aortic stenosis. Nephrology input appreciated. There is an order for ICD interrogation in [facility]; please make sure this interrogation is performed today. Plan was discussed with the patient and the medical team earlier. The patient is being transferred to telemetry. Continue strict I's and O's, daily weights, and daily metabolic panels. Brady Arce MD [facility] Continue telemetry? Yes
--- NOTE | 2017-11-14 13:39 | Cons- Pulmonary ---
General Information and HPI Consulting Request Date of Consult: 11/14/17 Requested By: House staff Reason for Consult: [place] of breath History of Present Illness: Patient is 77-year-old with severe COPD severe ischemic cardiomyopathy admitted with increasing shortness of breath associated with significant lower extremity edema and orthopnea. He has history of prior lung cancer and CT scan of the chest shows no evidence of recurrence. His BNP is markedly elevated. He has been diuresing with stable creatinine. He remains comfortable on room air but has baseline shortness of breath. Echocardiogram continues to show marked cardiomyopathy and aortic stenosis and regurgitation Allergies/Medications Allergies: Coded Allergies: NO KNOWN ALLERGIES (NONE 05/10/17) Home Med List: Acetaminophen 325 MG CAPSULE 1 CAP PO PRN PAIN (Reported) Albuterol Sulfate (Proair Hfa) 90 MCG HFA.AER.AD 2 PUF INH Q4 COPD Aspirin (Aspirin*) 81 MG TAB.CHEW 1 TAB PO DAILY heart (Reported) Atorvastatin Calcium (Lipitor) 40 MG TABLET 1 TAB PO DAILY cholesterol ( Reported) Budesonide/Formoterol Fumarate (Symbicort 160-4.5 Mcg Inhaler) 160 MCG-4.5 MCG/ ACTUATION HFA.AER.AD 2 PUF INH BID COPD (Reported) Carvedilol 6.25 MG TABLET 1 TAB PO BID HEART/BP (Reported) Clopidogrel Bisulfate (Clopidogrel) 75 MG TABLET 1 TAB PO DAILY BLOOD THINNER (Reported) Empagliflozin (Jardiance) 10 MG TABLET 1 TAB PO DAILY DM (Reported) Furosemide (Lasix) 20 MG TABLET 1 TAB PO DAILY CHF (Reported) Insulin Aspart, Recombinant (Novolog Flexpen) 100 UNIT/ML INSULN.PEN 0 SC SEE ADMIN CRITERIA DM PLEASE check your blood sugar 3 times daily before meals and at bedtime and . FOLLOW 80 - 150 MG/DL 9 UNITS 151- 200 MG/DL 11 UNITS 201- 250 MG/DL 13 UNITS 251- 300 MG/DL 15 UNITS 301- 350 MG/DL 17 UNITS 351 - 400MG/DL 19 UNITS >400 MG/DL 20 UNITS AND CALL YOUR DR. Insulin Detemir (Levemir) 100 UNIT/ML VIAL 20 UNITS SC QAM DM (Reported) Levothyroxine Sodium 100 MCG TABLET 1.5 TAB PO DAILY HYPOTHYROID (Reported) Nitroglycerin (Nitrostat) 0.4 MG TAB.SUBL 1 TAB SL AD PRN CHEST PAIN ( Reported) 1st sign of attack; may repeat every 5 minutes until relief; if pain persists after 3 tablets in 15 minutes, prompt medical att Omeprazole 40 MG CAPSULE.DR 1 CAP PO DAILY GI (Reported) Prednisone 10 MG TABLET 1.5 TAB PO DAILY STEROID (Reported) Ranolazine (Ranexa) 500 MG TAB.ER.12H 1 TAB PO BID heart (Reported) Sertraline HCl 50 MG TABLET 1 TAB PO DAILY MENTAL HEALTH (Reported) Tamsulosin HCl (Flomax) 0.4 MG CAP.ER.24H 1 CAP PO QHS prostate Please take at bed time to avoid low blood pressure during the day. Tiotropium [place] (Spiriva) 18 MCG CAP.W.DEV 1 CAP INH DAILY COPD (Reported) Review of Systems Review of Systems Constitutional: Denies: chills, fever. Cardiovascular: Reports: edema, peripheral edema. Denies: chest pain. Respiratory: Reports: cough, short of breath, wheezing. GI: Denies: abdominal pain, diarrhea, melena. 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 spouse Services at Home: None Primary Language: Hebrew Smoking Status: Former Smoker ETOH Use: denies use Illicit Drug Use: denies illicit drug use Living Will? no Functional Ability ADLs Independent: dressing, eating, toileting, bathing. Ambulation: independent Employment History Employment: Retired Exam & Diagnostic Data Last 24 Hrs of Vital Signs/I&O Vital Signs Date Time Temp Pulse Resp B/P B/P Pulse O2 O2 Flow FiO2 Mean Ox Delivery Rate 11/14 1113 Room Air 11/14 1104 97.5 85 20 122/68 90 Room Air 11/14 0910 93 Room Air 11/14 0813 118/64 11/14 0800 92 Room Air 11/14 0635 98.7 72 18 124/72 92 Room Air 11/14 0000 96 Nasal 2.0L Cannula 11/13 2224 78 119/73 11/13 2224 78 119/73 11/13 2223 78 119/73 11/13 2133 97.9 78 19 11973 96 Nasal 2.0L Cannula 11/13 1630 88 Room Air 11/13 1437 97.9 81 20 128/66 95 Nasal 2.0L Cannula Intake & Output 11/14 1600 11/14 0800 11/14 0000 Intake Total 600 300 Output Total 800 200 350 Balance -800 400 -50 Intake, Oral 600 300 Output, Urine 800 200 350 Patient 248 lb Weight Room air oxygen saturation 90-93% and his chest shows scattered expiratory wheezing cardiac exam shows a regular S1 and S2 soft systolic ejection murmur abdomen is soft nontender obese extremities have 2-3+ symmetrical lower extremity pitting edema Last 48 Hrs of Labs/Abimael: Laboratory Tests 11/14/17 0716: Anion Gap 5, Estimated GFR 46 L, BUN/Creatinine Ratio 24.7, CBC w Diff NO MAN DIFF REQ, RBC 3.33 L, MCV 101.9 H, MCH 34.7 H, MCHC 34.1, RDW 16.7 H, MPV 8.6, Gran % 87.7 H, Lymphocytes % 5.8 L, Monocytes % 6.2, Eosinophils % 0.3, Basophils % 0, Absolute Granulocytes 9.6 H, Absolute Lymphocytes 0.6 L, Absolute Monocytes 0.7 H, Absolute Eosinophils 0, Absolute Basophils 0 Assessment/Plan Impression/Plan: 77-year-old gentleman with severe cardiomyopathy and aortic stenosis COPD admitted with shortness of breath. BNP is markedly elevated with normal right ventricular estimated systolic pressures. The sputum is clear without purulence or hemoptysis. Shortness of breath is likely multifactorial related to volume overload in the setting of severe COPD. Recommendations: Continue negative fluid balance with stable creatinine. Continue prednisone 40 mg a day and bronchodilator regimen. Assess oxygen saturation with ambulation. Await decision regarding further evaluation of his aortic stenosis. Consult Acknowledgment - Thank you for your consult request.
--- NOTE | 2017-11-14 14:06 | Event Note ---
Event Note Event Note: Patient had severe SOB and significant LE edema requiring dobutamine infusion along with diuresis. he has an ICD that required to be interrogated I received a call from [employer], Khadar Florentino, at 2.00pm - reported that the device was interrogated and has been functioning appropriately. There have been a few Non sustained events, that do not require any treatment. also a couple of ? A fibrillation although it had P waves in it. The results will be updated on their website
[2017-11-15 04:00] VITALS: BP 142/70
--- NOTE | 2017-11-15 07:15 | PN- Pulmonary ---
Subjective HPI/Critical Care Issues: Patient is less short of breath continues with significant lower extremity edema Objective Current Medications: Current Medications Sig/Penny Start time Last Medication Dose Route Stop Time Status Admin Acetaminophen 650 MG Q6P PRN 11/06 2045 AC PO Albuterol Sulfate 2 PUF Q4P PRN 11/08 1700 AC 11/12 INH 0819 Albuterol Sulfate 3 ML EVERY 4 HRS/AWAKE 11/07 2000 AC 11/14 INH 2020 Aspirin 81 MG DAILY 11/07 09 AC 11/14 PO 0813 Atorvastatin Calcium 40 MG DAILY 11/07 09 AC 11/14 PO 0813 Benzonatate 100 MG TID PRN 11/06 2315 AC 11/14 PO 2127 Budesonide/ 2 PUF BID 11/06 2099 AC 11/14 Formoterol Fumarate INH 2126 Carvedilol 6.25 MG BID 11/06 2100 AC 11/14 PO 2127 Clopidogrel Bisulfate 75 MG DAILY 11/07 09 AC 11/14 PO 0818 Dobutamine HCl 250 MG Q4H 11/14 1300 AC 11/15 Dextrose/Water 250 ML IV 0424 Furosemide 40 MG DAILY 11/11 0902 AC 11/14 IV 0812 Guaifenesin 600 MG Q12 11/11 1037 AC 11/14 PO 2127 Insulin Aspart 0 TIDAC/HS 11/08 2100 AC 11/14 SC 2128 Insulin Detemir 25 UNITS QAM 11/09 09 AC 11/14 SC 0810 Levothyroxine Sodium 0.15 MG DAILY AC 11/07 0700 AC 11/15 PO 0521 Nitroglycerin 0.5 GM Q6P PRN 11/10 1300 AC TOP Omeprazole 40 MG DAILY AC 11/07 0700 DC 11/14 PO 0537 Pantoprazole Sodium 40 MG BID 11/14 2100 AC 11/14 IV 1615 Patient Medication 1 ED ONE ONE 11/14 0930 DC 11/14 Teaching ED 11/14 0931 1303 Prednisone 40 MG DAILY 11/12 09 AC 11/14 PO 0813 Ramelteon 8 MG AT BEDTIME NEED.. 11/09 2215 AC 11/14 PO 2127 Ranolazine 500 MG BID 11/06 2100 AC 11/14 PO 2127 Sertraline HCl 50 MG DAILY 11/07 09 AC 11/14 PO 0814 Tamsulosin HCl 0.4 MG AT BEDTIME 11/06 2099 AC 11/14 PO 7 Tiotropium [place] 1 PUF DAILY 11/07 0900 AC 11/14 INH 0812 Vital Signs & I&O Last 24 Hrs of Vitals and I&O: Vital Signs Date Time Temp Pulse Resp B/P B/P Pulse O2 O2 Flow FiO2 Mean Ox Delivery Rate 11/15 0424 82 142/70 11/14 2126 99 122/72 11/14 2126 99 122/72 11/14 2126 99 122/72 11/14 2126 99 122/72 11/14 2010 97.6 99 18 122/72 92 Room Air 11/14 1616 105 150/80 11/14 1615 109 20 152/80 90 Room Air 11/14 1615 93 Room Air 11/14 1545 97.7 96 20 145/79 93 Room Air 11/14 1523 105 128/68 11/14 1450 82 128/74 11/14 1423 97.3 82 20 128/74 91 Room Air 11/14 1113 Room Air 11/14 1104 97.5 85 20 122/68 90 Room Air 11/14 0910 93 Room Air 11/14 0813 118/64 11/14 0800 92 Room Air Intake & Output 11/15 0800 11/15 0000 11/14 1600 Intake Total 389.6 254.8 Output Total 450 800 Balance 389.6 -195.2 -800 Intake, IV 269.6 134.8 Intake, Oral 120 120 Output, Urine 450 800 Patient 246 lb Weight Weight Bed scale Measurement Method Room air oxygen saturation 92% exam of his chest shows diminished breath sounds there are no wheezes heard cardiac exam shows regular S1 and S2 extremities have 2-3+ symmetrical edema Impression/Plan Impression/Plan Impression/Plan: 77-year-old gentleman with cardiomyopathy COPD admitted with increasing shortness of breath. He continues to slowly diurese with stable renal function. Is now on room air Recommendations: Continue negative fluid balance with stable creatinine. . Assess oxygen saturation with ambulation. Await decision regarding further evaluation of his aortic stenosis. Begin prednisone taper by 10 mg a day
--- NOTE | 2017-11-15 08:02 | ECHOCARDIOGRAM REPORT ---
EMILY FRANCO Age: 77 : 1940 Gender: M Exam Date: 11/14/2017 19:21 Exam Location: [address] Ht (in): 72 Wt (lb): 247 BSA: 2.42 BP: 122 / 68 Ordering Physician: Joan Fan MD Referring Physician: Nathan Arce M.D. Technologist: Xiomara Yao [facility] Room Number: 179-02 Indications: Heart failure Rhythm: Other Technical Quality: poor FINDINGS Left Ventricle Mild left ventricular dilatation. Left ventricular wall thickness mildly increased. Moderately abnormal left ventricular ejection fraction estimated at 25-30%. Akinetic inferior wall. Right Ventricle Right ventricle not well visualized, grossly normal. Catheter/pacemaker wire in the right ventricular cavity. Right Atrium Mild right atrial dilatation. Left Atrium Moderate left atrial dilatation. Mitral Valve Moderate mitral annular calcification. [id number] mitral regurgitation. Aortic Valve Diffuse thickening of the aortic valve cusps with reduced excursion. Cupy-ng-mijtlpfk aortic stenosis. Tricuspid Valve Tricuspid valve not well visualized, grossly normal. Moderate tricuspid regurgitation. Pulmonic Valve Pulmonic valve not well visualized, grossly normal. Pericardium No pericardial effusion. Great Vessels Aortic root and proximal ascending aorta not well visualized. CONCLUSIONS Limited study. Moderate to severely reduced left ventricular systolic function. Moderate Aortic stenosis. Bruce Seay M.D. (Electronically Signed) Final Date: 15 November 2017 08:00 MEASUREMENTS (Male / Female) Normal Values 2D ECHO LV Diastolic Diameter PLAX 6.0 cm 4.2 - 5.9 / 3.9 - 5.3 cm LV Systolic Diameter PLAX 5.2 cm 2.1 - 4.0 cm LV Fractional Shortening PLAX 13.3 % 25 - 46 % LV Ejection Fraction 2D Teich 28.1 % IVS Diastolic Thickness 1.3 cm LVPW Diastolic Thickness 1.3 cm LV Relative Wall Thickness 0.4 LVOT Diameter 2.1 cm LV Diastolic Length 4C 9.4 cm 6.9 - 10.3 cm LV Diastolic Area 4C 46.2 cm LV Diastolic Volume MOD 4C 187.0 cm LV Ejection Fraction MOD 4C 38.0 % LV Stroke Volume MOD 4C 71.0 cm LV Systolic Length 4C 8.3 cm LV Systolic Area 4C 34.4 cm LV Systolic Volume MOD 4C 116.0 cm LV Diastolic Volume 4C AL 193.2 cm 85 - 139 / 69 - 109 cm LV Systolic Volume 4C AL 121.3 cm LV Ejection Fraction 4C AL 37.2 % LV Stroke Volume 4C AL 71.9 cm DOPPLER AV Peak Velocity 308.0 cm/s AV Peak Gradient 37.9 mmHg AV Mean Velocity 206.0 cm/s AV Mean Gradient 21.0 mmHg AV Velocity Time Integral 53.3 cm LVOT Peak Velocity 180.0 cm/s LVOT Peak Gradient 13.0 mmHg LVOT Mean Velocity 117.0 cm/s LVOT Mean Gradient 7.0 mmHg LVOT Velocity Time Integral 31.2 cm LVOT Stroke Volume 108.1 cm AV Area Cont Eq vti 2.0 cm AV Area Cont Eq pk 2.0 cm
[2017-11-15 08:14] LABS: ABSOLUTE BASOPHIL COUNT 0 /CUMM (0.0-0.2); ABSOLUTE EOSINOPHIL COUNT 0 /CUMM (0.0-0.7); ABSOLUTE GRANULOCYTE CT 8.6 /CUMM (1.4-6.5); ABSOLUTE LYMPH COUNT 0.7 /CUMM (1.2-3.4); BASOPHIL % 0 % (0.0-2.0); EOSINOPHIL % 0.2 % (0-5); GRANULOCYTE % 83.6 % (42.2-75.2); HEMATOCRIT 33.7 % (42-52); MEAN CORPUSCULAR HGB 34.5 PG (27.0-31.0); MEAN CORPUSCULAR HGB CONC 33.7 G/DL (33.0-37.0); MEAN CORPUSCULAR VOLUME 102.5 FL (80.0-94.0); MEAN PLATELET VOLUME 8.4 FL (7.4-10.4); PLATELET COUNT 108 /CUMM (130-400); RED BLOOD CELL CT 3.29 /CUMM (4.70-6.10); WHITE BLOOD CELL COUNT 10.3 /CUMM (4.8-10.8)
[2017-11-15 08:36] VITALS: BP 128/78
--- NOTE | 2017-11-15 11:42 | PN- Cardiology ---
Subjective Subjective: The patient is awake, alert, overall feels improved from a respiratory standpoint The events of the last 24 hours as well as telemetry were reviewed. Review of Systems: The review of systems is negative for chest pains, palpitations nor lightheadedness. The remainder of the 14 point review of systems is noncontributory with the exception of above. Objective Vital Signs and I&Os Vital Signs Date Time Temp Pulse Resp B/P B/P Pulse O2 O2 Flow FiO2 Mean Ox Delivery Rate 11/15 0919 97 Nasal 2.0L Cannula 11/15 0914 82 124/58 11/15 0913 82 124/58 11/15 0836 97.7 90 20 128/78 97 Room Air 11/15 0424 82 142/70 11/15 0400 97.6 82 20 142/70 97 Nasal Cannula 11/14 2126 99 122/72 11/14 2126 99 122/72 11/14 2126 99 122/72 11/14 2126 99 122/72 11/14 2010 97.6 99 18 122/72 92 Room Air 11/14 1616 105 150/80 11/14 1615 109 20 152/80 90 Room Air 11/14 1615 93 Room Air 11/14 1545 97.7 96 20 145/79 93 Room Air 11/14 1523 105 128/68 11/14 1450 82 128/74 11/14 1423 97.3 82 20 128/74 91 Room Air Intake & Output 11/15 1600 11/15 0800 11/15 0000 11/14 1600 11/14 0800 11/14 0000 Intake Total 389.6 254.8 600 300 Output Total 450 800 200 350 Balance 389.6 -195.2 -800 400 -50 Intake, IV 269.6 134.8 Intake, Oral 120 120 600 300 Output, Urine 450 800 200 350 Patient 246 lb 248 lb Weight Weight Bed scale Measurement Method Physical Exam: General: Nontoxic, no apparent distress. HEENT: Sclera and conjunctiva within normal limits, without xanthelasmas. Neck: Carotids 2+ without bruits. Respiratory: Scattered rhonchi and rales, air movement is decreased at the bases , without accessory respiratory muscle use. Heart: Regular rate and rhythm, without murmurs, without JVD. Abdomen: Soft, nontender, no masses, normoactive bowel sounds. Extremities: Without clubbing, cyanosis, without edema. Neuro: Nonfocal exam, strength, 5 out of 5 Skin: Within normal limits without lesions. Psych: Mood and affect: Normal Current Medications: Current Medications Sig/Penny Start time Last Medication Dose Route Stop Time Status Admin Acetaminophen 650 MG Q6P PRN 11/06 2045 AC PO Albuterol Sulfate 2 PUF Q4P PRN 11/08 1700 AC 11/12 INH 0819 Albuterol Sulfate 3 ML EVERY 4 HRS/AWAKE 11/08 1999 AC 11/15 INH 0915 Aspirin 81 MG DAILY 11/07 09 AC 11/15 PO 0911 Atorvastatin Calcium 40 MG DAILY 11/07 09 AC 11/15 PO 0913 Benzonatate 100 MG TID PRN 11/06 2315 AC 11/14 PO 2127 Budesonide/ 2 PUF BID 11/06 2099 AC 11/15 Formoterol Fumarate INH 0916 Carvedilol 6.25 MG BID 11/06 2099 AC 11/15 PO 0913 Clopidogrel Bisulfate 75 MG DAILY 11/07 09 AC 11/15 PO 0914 Dobutamine HCl 250 MG Q4H 11/14 1300 AC 11/15 Dextrose/Water 250 ML IV 0424 Furosemide 40 MG DAILY 11/11 0902 AC 11/15 IV 0913 Guaifenesin 600 MG Q12 11/11 1037 AC 11/15 PO 0913 Insulin Aspart 0 TIDAC/HS 11/08 2100 AC 11/15 SC 0858 Insulin Detemir 25 UNITS QAM 11/09 09 AC 11/15 SC 0909 Levothyroxine Sodium 0.15 MG DAILY AC 11/07 07 AC 11/15 PO 0521 Nitroglycerin 0.5 GM Q6P PRN 11/10 1300 AC TOP Omeprazole 40 MG DAILY AC 11/07 0700 DC 11/14 PO 0537 Pantoprazole Sodium 40 MG BID 11/14 2100 AC 11/15 IV 0908 Prednisone 40 MG DAILY 11/12 09 AC 11/15 PO 0914 Ramelteon 8 MG AT BEDTIME NEED.. 11/09 2214 AC 11/14 PO 2127 Ranolazine 500 MG BID 11/06 2099 AC 11/15 PO 0914 Sertraline HCl 50 MG DAILY 11/07 09 AC 11/15 PO 0914 Tamsulosin HCl 0.4 MG AT BEDTIME 11/06 2099 AC 11/14 PO 2127 Tiotropium [place] 1 PUF DAILY 11/07 0900 AC 11/15 INH 0916 Results Last 48 Hrs of Labs/Mics: Laboratory Tests 11/15/17 0640: Anion Gap 3 L, Estimated GFR 49 L, BUN/Creatinine Ratio 25.7 H, CBC w Diff NO MAN DIFF REQ, RBC 3.29 L, MCV 102.5 H, MCH 34.5 H, MCHC 33.7, RDW 17.0 H, MPV 8.4, Gran % 83.6 H, Lymphocytes % 6.6 L, Monocytes % 9.6 H, Eosinophils % 0.2, Basophils % 0, Absolute Granulocytes 8.6 H, Absolute Lymphocytes 0.7 L, Absolute Monocytes 1.0 H, Absolute Eosinophils 0, Absolute Basophils 0 11/14/17 1720: Troponin I 0.04 11/14/17 0716: Anion Gap 5, Estimated GFR 46 L, BUN/Creatinine Ratio 24.7, CBC w Diff NO MAN DIFF REQ, RBC 3.33 L, MCV 101.9 H, MCH 34.7 H, MCHC 34.1, RDW 16.7 H, MPV 8.6, Gran % 87.7 H, Lymphocytes % 5.8 L, Monocytes % 6.2, Eosinophils % 0.3, Basophils % 0, Absolute Granulocytes 9.6 H, Absolute Lymphocytes 0.6 L, Absolute Monocytes 0.7 H, Absolute Eosinophils 0, Absolute Basophils 0 Assessment/Plan Assessment/Plan 1. Shortness of breath likely multifactorial 2. Ischemic cardiomyopathy with prior CABG/PCI, LVEF is 25-30% 3. AICD in situ 4. Abdominal aortic aneurysm status post prior EVAR 5. Aortic stenosis 6. Small cell lung CA 7. Hypothyroidism 8. Not on ZULAY inhibitor per reoprt due to CKD with hyperkalemia 9. Acute on chronic systolic congestive heart failure 10. COPD/PATTI 11. Diabetes The repeat echocardiogram while on dobutamine was reviewed. This demonstrated a mean transvalvular gradient of 21 mmHg, with a calculated aortic valve area that is not stenotic. I have discussed this with the patient including the lack of benefit which perceiving and aortic valve replacement would have. We will continue treatment with further diuresis while on dobutamine, targeting a net output of approximately 1 L per day. Nephrology input is appreciated. Continue telemetry? Yes
--- NOTE | 2017-11-15 12:05 | PN- Att Addend ---
Attending Addendum Attending Brief Note Laboratory Tests 11/15/17 0640: Anion Gap 3 L, Estimated GFR 49 L, BUN/Creatinine Ratio 25.7 H, CBC w Diff NO MAN DIFF REQ, RBC 3.29 L, MCV 102.5 H, MCH 34.5 H, MCHC 33.7, RDW 17.0 H, MPV 8.4, Gran % 83.6 H, Lymphocytes % 6.6 L, Monocytes % 9.6 H, Eosinophils % 0.2, Basophils % 0, Absolute Granulocytes 8.6 H, Absolute Lymphocytes 0.7 L, Absolute Monocytes 1.0 H, Absolute Eosinophils 0, Absolute Basophils 0 11/14/17 1720: Troponin I 0.04 Vital Signs Date Time Temp Pulse Resp B/P B/P Pulse O2 O2 Flow FiO2 Mean Ox Delivery Rate 11/15 0919 97 Nasal 2.0L Cannula 11/15 0914 82 124/58 11/15 0913 82 124/58 11/15 0836 97.7 90 20 128/78 97 Room Air 11/15 0800 Room Air Room Air 11/15 0424 82 142/70 11/15 0400 97.6 82 20 142/70 97 Nasal Cannula 11/14 2127 99 122/72 11/14 2127 99 122/72 11/14 2127 99 122/72 11/147 99 122/72 11/14 2010 97.6 99 18 122/72 92 Room Air 11/14 1616 105 150/80 11/14 1615 109 20 152/80 90 Room Air 11/14 1615 93 Room Air 11/14 1545 97.7 96 20 145/79 93 Room Air 11/14 1523 105 128/68 11/14 1450 82 128/74 11/14 1423 97.3 82 20 128/74 91 Room Air Acute CHF exacerbation with CKD with resistantce to diuresis- pt was started on dobutamine drip to help with diuresis. Repeat ECHO while on dobutamine drip shows that pt has Psedo arotic stenosis and d/w cardiology and plan will be to cont with medical management to improve his cardiac function. Cont on dobutamine drip for now and f/u on his diuresis and see how he does. d/w pt and cardiology the care plan.
[2017-11-15 12:17] VITALS: BP 118/62
--- NOTE | 2017-11-15 12:24 | PN- Housestaff ---
Subjective Follow-up For: Shortness of breath secondary to COPD, acute on chronic CHF Complaints: bilateral lower leg swelling Tele-Events Since Last Visit: Episodes of wide-complex intermittent tachycardia; already on AICD. Subjective: Patient is seen and examined at the bedside. He was saying he felt much improved than before. He is still having bilateral lower leg swelling. He wanted to go home. We discussed about the plans for the discharge. Review of Systems Constitutional: Reports: no symptoms. Comments: Bilateral lower leg swelling Objective Last 24 Hrs of Vital Signs/I&O Vital Signs Date Time Temp Pulse Resp B/P B/P Pulse O2 O2 Flow FiO2 Mean Ox Delivery Rate 11/15 1559 92 Room Air Room Air 11/15 1448 97.9 72 18 112/62 93 Room Air 11/15 1236 75 118/62 11/15 1217 98.2 75 20 118/62 95 Room Air 11/15 0919 97 Nasal 2.0L Cannula 11/15 0914 82 124/58 11/15 0913 82 124/58 11/15 0836 97.7 90 20 128/78 97 Room Air 11/15 0800 Room Air Room Air 11/15 0424 82 142/70 11/15 0400 97.6 82 20 142/70 97 Nasal Cannula 11/14 2126 99 122/72 11/14 2126 99 122/72 11/14 2126 99 122/72 11/14 2126 99 122/72 11/14 2010 97.6 99 18 122/72 92 Room Air Intake & Output 11/15 1600 11/15 0800 11/15 0000 Intake Total 990 389.6 254.8 Output Total 1700 450 Balance -710 389.6 -195.2 Intake, IV 290 269.6 134.8 Intake, Oral 700 120 120 Number 1 Bowel Movements Output, Urine 1700 450 Patient 111.584 kg Weight Weight Bed scale Measurement Method Physical Exam General Appearance: Alert, Oriented X3, Cooperative, No Acute Distress Cardiovascular: Normal S1, Normal S2 Lungs: bilateral decreased air entry and generalized wheezing Abdomen: Soft Extremities: bilatreal pitting edema Assessment/Plan Assessment: Patient is a 77-year-old male presented with chief complaints of gradually progressive shortness of breath. Past medical history- * Small Cell lung CA (last dose of radiation 3 months ago), * IDDM (dx 3months ago), * Ischemic cardiomyopathy with EF 20% s/p defibrillator placement (Mar 2017), * s/p carotid endarterectomy right side (1997), * CABG (1988), CAD with stents (), * h/o DVT (5 yrs ago), * COPD, * Hypothyroidism * Hypertension * BPH * Obstructive sleep apnea on nocturnal CPAP Vital signs-temperature 97.9, pulse 72, respiratory rate 18, blood pressure 112/ 62, SPO2 93% on room air. Blood workup-WBC 10.3, hemoglobin 11.4, MCV 102.5, platelet count 108, sodium 135, potassium 4.4, carbon dioxide 34, anion gap 3, BUN 36, creatinine 1.4, Assessment and plan- * Patient is currently on dobutamine drip and afterwards his aortic valve area has been improved from 0.6 to [address] Rivera he thinks patient has functional aortic stenosis. We will continue dobutamine drip and give IV diuretics. * According to transfer driver we should start dropping the prednisone doses. * We will continue TRC/nebulization * Will continue diuretic at the same dose * Strict intake output charting * Patient had episodes of nonsustained VT. He already had AICD. Discussed with the patient and according to him he did not fired. According to [employer] it is working well. * CODE STATUS-DNR/DNI * DVT prophylaxis-ALPS/heparin Problem List: 1. Small cell lung cancer in adult 2. CKD stage 3 secondary to diabetes 3. IDDM (insulin dependent diabetes mellitus) 4. Thrombocytopenia 5. CHF exacerbation Pain Ratin Pain Location: n/a Pain Goal: Remain pain free Pain Plan: avoid NSAIDs Tomorrow's Labs & Rationales: f/u CBC, BEp, mag DVT/Prophylaxis: mechanical, pharmacological
[2017-11-15 14:48] VITALS: BP 112/62
[2017-11-15 21:24] VITALS: BP 138/84
[2017-11-16 00:16] VITALS: BP 124/78
[2017-11-16 03:40] VITALS: BP 126/76
--- NOTE | 2017-11-16 07:05 | PN- Housestaff ---
Tre LUND,Bianka 11/16/17 0705: Subjective Follow-up For: Congestive heart failure/COPD exacerbation Complaints: no complaints Tele-Events Since Last Visit: Normal sinus rhythm Subjective: Patient seen and examined at bedside. Patient was sitting comfortably in his recliner. No evidence of any acute distress. Patient says he had decreased sleep overnight. He denies chest pain, palpitation, shortness of breath, nausea , vomiting, abdominal pain Review of Systems Constitutional: Reports: no symptoms. Objective Last 24 Hrs of Vital Signs/I&O Vital Signs Date Time Temp Pulse Resp B/P B/P Pulse O2 O2 Flow FiO2 Mean Ox Delivery Rate 11/16 0916 89 118/68 11/16 0916 89 118/68 11/16 0851 95 Room Air 11/16 0820 98.2 89 18 118/68 97 11/16 0800 Room Air Room Air 11/16 0433 80 126/76 11/16 0340 98.2 80 24 126/76 92 11/16 0016 97.6 93 18 124/78 94 11/15 2125 Room Air 11/15 2124 97.6 93 19 138/84 92 11/15 2047 95 122/78 11/15 2044 95 122/78 11/15 2043 95 122/78 11/15 2043 95 122/78 11/15 1559 92 Room Air Room Air 11/15 1448 97.9 72 18 112/62 93 Room Air 11/15 1236 75 118/62 11/15 1217 98.2 75 20 118/62 95 Room Air Intake & Output 11/16 1600 11/16 0800 11/16 0000 Intake Total 360 300 Output Total 575 1550 Balance -215 -1250 Intake, Oral 360 300 Output, Urine 575 1550 Patient 247 lb Weight Physical Exam General Appearance: Alert, Oriented X3, Cooperative, No Acute Distress Cardiovascular: Normal S1, Normal S2, No Murmurs Lungs: b/l wheeze Abdomen: obese Neurological: Normal Gait, Normal Speech, Strength at 5/5 X4 Ext, Normal Tone Extremities: b/l 1+edema Vascular: Normal Pulses Current Medications: Current Medications Sig/Penny Start time Last Medication Dose Route Stop Time Status Admin Acetaminophen 650 MG Q6P PRN 11/06 2045 AC PO Albuterol Sulfate 2 PUF Q4P PRN 08/21 1700 AC 11/15 INH 205 Albuterol Sulfate 3 ML EVERY 4 HRS/AWAKE 11/07 2000 AC 11/16 INH 08 Aspirin 81 MG DAILY 11/07 0900 AC 11/16 PO 0915 Atorvastatin Calcium 40 MG DAILY 11/07 0900 AC 11/16 PO 0915 Benzonatate 100 MG TID PRN 11/06 2315 AC 11/15 PO 2053 Budesonide/ 2 PUF BID 11/06 2100 AC 11/16 Formoterol Fumarate INH 0908 Carvedilol 6.25 MG BID 11/06 2100 AC 11/16 PO 0916 Clopidogrel Bisulfate 75 MG DAILY 11/07 09 AC 11/16 PO 0916 Dobutamine HCl 250 MG Q4H 11/14 1300 AC 11/16 Dextrose/Water 250 ML IV 0433 Furosemide 40 MG DAILY 11/11 0902 AC 11/16 IV 0909 Guaifenesin 600 MG Q12 11/11 1037 AC 11/16 PO 0916 Insulin Aspart 0 TIDAC/HS 11/08 2100 AC 11/16 SC 0922 Insulin Detemir 25 UNITS QAM 11/09 0900 AC 11/16 SC 0921 Levothyroxine Sodium 0.15 MG DAILY AC 11/07 0700 AC 11/16 PO 0434 Nitroglycerin 0.5 GM Q6P PRN 11/10 1300 AC TOP Pantoprazole Sodium 40 MG BID 11/14 2100 AC 11/16 IV 0909 Prednisone 10 MG DAILY 11/19 09 AC PO 11/19 0901 Prednisone 20 MG DAILY 11/18 09 AC PO 11/18 0901 Prednisone 30 MG DAILY 11/17 09 AC PO 11/17 09 Prednisone 40 MG DAILY 11/16 09 CAN PO 11/20 0859 Prednisone 40 MG DAILY 11/16 0900 DC 11/16 PO 11/16 0901 0916 Prednisone 40 MG DAILY 11/12 0900 DC 11/15 PO 0914 Ramelteon 8 MG AT BEDTIME NEED.. 11/09 2214 AC 11/15 PO 204 Ranolazine 500 MG BID 11/06 2100 AC 11/16 PO 0916 Sertraline HCl 50 MG DAILY 11/07 09 AC 11/16 PO 0916 Tamsulosin HCl 0.4 MG AT BEDTIME 11/06 2100 AC 11/15 PO 204 Tiotropium [place] 1 PUF DAILY 08/20 0900 AC 11/16 INH 0908 Last 24 Hrs of Lab/Abimael Results Last 24 Hrs of Labs/Mics: Laboratory Tests 11/16/17 0628: Anion Gap 5, Estimated GFR 54 L, BUN/Creatinine Ratio 29.2 H, Magnesium 1.8 Assessment/Plan Assessment: Patient is a 77-year-old male presented with chief complaints of gradually progressive shortness of breath. Past medical history- * Small Cell lung CA (last dose of radiation 3 months ago), * IDDM (dx 3months ago), * Ischemic cardiomyopathy with EF 20% s/p defibrillator placement (Mar 2017), * s/p carotid endarterectomy right side (1997), * CABG (1988), CAD with stents (), * h/o DVT (5 yrs ago), * COPD, * Hypothyroidism * Hypertension * BPH * Obstructive sleep apnea on nocturnal CPAP Assessment and plan CHF exacerbation with ischemic cardiomyopathy with ejection fraction of 20% status post AICD Mar 2017 Patient is treated with Lasix. Compression stockings Strict I's and O's Daily weights Leg elevation patient will benefit from Increased dose of Lasix. Patient's aortic valve area has been improved from 0.6 to 2 cm after starting him on dobutamine which signifies that he does not have moderate/severe aortic stenosis. Results of echocardiogram was discussed with the patient. For now we will continue dobutamine drip and discuss with cardiology regarding stopping it. COPD exacerbation Pulmonology on board Continue TRC nebulization Diet-heart healthy diet CODE STATUS DNR/DNI DVT prophylaxis heparin Problem List: 1. COPD exacerbation 2. CHF exacerbation Pain Ratin Pain Location: none Pain Goal: Remain pain free Pain Plan: Tylenol Tomorrow's Labs & Rationales: C BC, BP Zoya Johnston 11/16/17 1237: Attending MD Review Statement Attending Statement Attending MD Statement: examined this patient, discuss w/resident/PA/CURATORIAL SPECIALIST, agreed w/resident/PA/CURATORIAL SPECIALIST, reviewed EMR data (avail), discussed with nursing, discussed with case mgmt Attending Assessment/Plan: Acute CHF exacerbation with CKD with resistantce to diuresis- pt was started on dobutamine drip to help with diuresis. Repeat ECHO while on dobutamine drip shows that pt has Psedo arotic stenosis and d/w cardiology and plan will be to cont with medical management to improve his cardiac function. Cont on dobutamine drip for now and f/u on his diuresis and see how he does. Increase lasix to 40mg iv bid. d/w pt the care plan and explained him the echo results . Answered all his questions.
--- NOTE | 2017-11-16 07:59 | PN- Pulmonary ---
Subjective HPI/Critical Care Issues: Patient continues to have dyspnea on exertion he is diuresing more effectively and creatinine has improved Objective Current Medications: Current Medications Sig/Penny Start time Last Medication Dose Route Stop Time Status Admin Acetaminophen 650 MG Q6P PRN 11/06 2044 AC PO Albuterol Sulfate 2 PUF Q4P PRN 11/08 1700 AC 11/15 INH 2058 Albuterol Sulfate 3 ML EVERY 4 HRS/AWAKE 11/08 1999 AC 11/15 INH 195 Aspirin 81 MG DAILY 11/07 09 AC 11/15 PO 0911 Atorvastatin Calcium 40 MG DAILY 11/07 09 AC 11/15 PO 0913 Benzonatate 100 MG TID PRN 11/06 2315 AC 11/15 PO 2052 Budesonide/ 2 PUF BID 11/06 2099 AC 11/15 Formoterol Fumarate INH 2043 Carvedilol 6.25 MG BID 11/06 2099 AC 11/15 PO 204 Clopidogrel Bisulfate 75 MG DAILY 11/07 09 AC 11/15 PO 0914 Dobutamine HCl 250 MG Q4H 11/14 1300 AC 11/16 Dextrose/Water 250 ML IV 0433 Furosemide 40 MG DAILY 11/11 0902 AC 11/15 IV 0913 Guaifenesin 600 MG Q12 11/11 1037 AC 11/15 PO 204 Insulin Aspart 0 TIDAC/HS 11/08 2100 AC 11/15 SC 205 Insulin Detemir 25 UNITS QAM 11/09 0900 AC 11/15 SC 0909 Levothyroxine Sodium 0.15 MG DAILY AC 11/07 07 AC 11/16 PO 0434 Nitroglycerin 0.5 GM Q6P PRN 11/10 1300 AC TOP Pantoprazole Sodium 40 MG BID 11/14 2100 AC 11/15 IV 2048 Prednisone 10 MG DAILY 11/19 899 AC PO 11/19 09 Prednisone 20 MG DAILY 11/18 899 AC PO 11/18 900 Prednisone 30 MG DAILY 11/17 899 AC PO 11/17 900 Prednisone 40 MG DAILY 11/16 09 CAN PO 11/20 0859 Prednisone 40 MG DAILY 11/16 09 AC PO 11/16 900 Prednisone 40 MG DAILY 11/12 0900 DC 11/15 PO 09 Ramelteon 8 MG AT BEDTIME NEED.. 11/09 2214 AC 11/15 PO 2045 Ranolazine 500 MG BID 11/06 2099 AC 11/15 PO 2043 Sertraline HCl 50 MG DAILY 11/07 0900 AC 11/15 PO 0914 Tamsulosin HCl 0.4 MG AT BEDTIME 11/06 2099 AC 11/15 PO 204 Tiotropium [place] 1 PUF DAILY 11/07 09 AC 11/15 INH 0916 Vital Signs & I&O Last 24 Hrs of Vitals and I&O: Vital Signs Date Time Temp Pulse Resp B/P B/P Pulse O2 O2 Flow FiO2 Mean Ox Delivery Rate 11/16 0433 80 126/76 11/16 0340 98.2 80 24 126/76 92 11/16 0016 97.6 93 18 124/78 94 11/15 2124 Room Air 11/16 2123 97.6 93 19 138/84 92 11/15 2047 95 122/78 11/15 2044 95 122/78 11/15 2043 95 122/78 11/15 2043 95 122/78 11/15 1559 92 Room Air Room Air 11/15 1448 97.9 72 18 112/62 93 Room Air 11/15 1236 75 118/62 11/15 1217 98.2 75 20 118/62 95 Room Air 11/15 0919 97 Nasal 2.0L Cannula 11/15 0914 82 124/58 11/15 0913 82 124/58 11/15 0836 97.7 90 20 128/78 97 Room Air 11/15 0800 Room Air Room Air Intake & Output 11/16 0800 11/16 0000 11/15 1600 Intake Total 360 300 990 Output Total 575 1550 1700 Balance -215 -1250 -710 Intake, IV 290 Intake, Oral 360 300 700 Number 1 Bowel Movements Output, Urine 575 1550 1700 Patient 247 lb Weight Murmur oxygen saturation 92% exam of his chest shows clear lung alston are no wheezes cardiac exam shows regular S1 and S2 with soft systolic ejection murmur there continues to be lower extremity edema Impression/Plan Impression/Plan Impression/Plan: 77-year-old gentleman with COPD congestive heart failure has improved diuresis and improving renal function. Recommendations: Continue negative fluid balance with improved creatinine. . Assess oxygen saturation with ambulation. . Continue prednisone taper by 10 mg a day further management of congestive heart failure per cardiology with improved creatinine consider increasing Lasix to twice daily
[2017-11-16 08:20] VITALS: BP 118/68
--- NOTE | 2017-11-16 08:45 | PN- Student ---
[facility] 11/16/17 0829: Subjective Subjective: The patient is seen and examined this morning. He reports that he did not sleep well due to persistent SOB when lying flat, and he is only able to get relief with sitting in the recliner. He reports worsening leg edema and has noticed that his legs have been weeping more than is normal for him. He is able to get up to walk to the restroom although doing so exacerbates his difficulty breathing. He denies fevers, chills, n/v/d, chest pain, or palptitations. Objective Objective: Vital signs - blood pressure 126/76, temperature 98.2F, heart rate 80, respiratory rate 24, O2 saturation 92% on RA General: well-developed, well-nourished male sitting up in recliner, increased work of breathing noted but patient is in no acute distress CV: RRR, 2/6 systolic murmur heard best over the left upper sternal border Pulmonary: decreased air movement throughout all lung alston, diffuse scattered wheezing and rhonchi, radial pulses 2+ bilaterally Abdomen: obese, soft, nontender, nondistended, diffuse ecchymoses present Lower extremities: 2+ pitting edema bilaterally, legs weeping scant amounts of clear fluid, DP pulses not palpable due to swelling but detectable with use of doppler Neuro: patient is awake, alert, and cooperative Psych: affect and concentration normal Results Results: Laboratory Tests 11/16/17 0628: Sodium Pending, Potassium Pending, Chloride Pending, Carbon Dioxide Pending, Anion Gap Pending, BUN Pending, Creatinine Pending, BUN/Creatinine Ratio Pending , Magnesium Pending 11/15/17 0640: Anion Gap 3 L, Estimated GFR 49 L, BUN/Creatinine Ratio 25.7 H, CBC w Diff NO MAN DIFF REQ, RBC 3.29 L, MCV 102.5 H, MCH 34.5 H, MCHC 33.7, RDW 17.0 H, MPV 8.4, Gran % 83.6 H, Lymphocytes % 6.6 L, Monocytes % 9.6 H, Eosinophils % 0.2, Basophils % 0, Absolute Granulocytes 8.6 H, Absolute Lymphocytes 0.7 L, Absolute Monocytes 1.0 H, Absolute Eosinophils 0, Absolute Basophils 0 11/14/17 1720: Troponin I 0.04 11/14/17 0716: Anion Gap 5, Estimated GFR 46 L, BUN/Creatinine Ratio 24.7, CBC w Diff NO MAN DIFF REQ, RBC 3.33 L, MCV 101.9 H, MCH 34.7 H, MCHC 34.1, RDW 16.7 H, MPV 8.6, Gran % 87.7 H, Lymphocytes % 5.8 L, Monocytes % 6.2, Eosinophils % 0.3, Basophils % 0, Absolute Granulocytes 9.6 H, Absolute Lymphocytes 0.6 L, Absolute Monocytes 0.7 H, Absolute Eosinophils 0, Absolute Basophils 0 Assessment/Plan Assessment: 77 y/o male with history of CAD s/p CABG (1993) and stent placement, ischemic cardiomyopathy with estimated EF of 25-30% per echocardiogram on 11/14, HTN, COPD with a > 50 pack year smoking history (quit smoking 8 months ago), small cell lung cancer s/p radiation treatment (last dose of radiation 3 months ago), PATTI, hypothyroidim, CKD, and IDDM admitted on 11/06/2017 for worsneing SOB. Plan: Plan: 1. IDDM - continue with sliding scale insulin Aspart and long-acting insulin Detemir, and monitor blood glucose prior to each meal. 2. CHF - continue with dobutamine drip at current rate (250 mL at 33.681 mL/hr). We will consult with cardiology regarding appropriate duration of treatment. Continue with lasix therapy (increase to 40 mg IV BID) for diuresis and monitor strict I/Os and weight. Patient has been informed that his most recent echocardiogram on 11/14 was consistent with pseudostensosis of the aortic valve and that he would not benefit from valve replacement. He has demonstrated understanding of these findings and has asked us to communicate this with his , Melissa. Patient is encouraged to wear compression stockings and to elevate his legs when sitting to help with the swelling. 3. COPD - TRC/nebulization with Proventil Q4hr, Spiriva 1 puff/day, and Ventolin PRN. Patient is tapering off prednisone currently (on 40 mg today, will decrease to 30 mg tomorrow). 4. Activity - OOB to chair and restroom, ambulate as tolerated. 5. Diet - heart healthy/renal diet 6. DVT prophylaxis - compression stockings and ambulation as tolerated. Patient was previously on heparin therapy and had resultant thrombyocytopenia, heparin has been discontinued and platelets are being monitored. 7. CKD - Continue to monitor electrolyte function with daily BMP. 8. Labs - Repeat CBC and BMP in the am. 8. Disposition - anticipated discharge in several days after continued therapy with dobutamine drip.
--- NOTE | 2017-11-16 11:54 | PN- Cardiology ---
Subjective Subjective: Patient still with some shortness of breath and lower extremity edema. Objective Vital Signs and I&Os Vital Signs Date Time Temp Pulse Resp B/P B/P Pulse O2 O2 Flow FiO2 Mean Ox Delivery Rate 11/16 0916 89 118/68 11/16 0916 89 118/68 11/16 0851 95 Room Air 11/16 0820 98.2 89 18 118/68 97 11/16 0800 Room Air Room Air 11/16 0433 80 126/76 11/16 0340 98.2 80 24 126/76 92 11/16 0016 97.6 93 18 124/78 94 11/15 2125 Room Air 11/15 2124 97.6 93 19 138/84 92 11/15 2047 95 122/78 11/15 2044 95 122/78 11/15 2043 95 122/78 11/15 2043 95 122/78 11/15 1559 92 Room Air Room Air 11/15 1448 97.9 72 18 112/62 93 Room Air 11/15 1236 75 118/62 11/15 1217 98.2 75 20 118/62 95 Room Air Intake & Output 11/16 1600 11/16 0811/16 0000 11/15 1600 11/15 0000 Intake Total 360 300 990 389.6 254.8 Output Total 305 902 6364 1700 450 Balance -350 -215 -1250 -710 389.6 -195.2 Intake, IV 290 269.6 134.8 Intake, Oral 360 300 700 120 120 Number 1 Bowel Movements Output, Urine 745 203 6017 1700 450 Patient 247 lb 246 lb Weight Weight Bed scale Measurement Method Physical Exam: General: no apparent distress. Alert. Eyes: No obvious scleral icterus. HEENT: No jugular venous distention or abnormal jugular venous pulsations. Cardiovascular: Normal intensity S1/S2. Regular. ICD noted, 2 out of 6 systolic murmur Respiratory: decreased air entry at the bases Abdomen: Soft, nontender with no guarding or rebound tenderness. Musculoskeletal: No clubbing or cyanosis noted; 2+ lower extremity edema Skin: warm Neurologic: No gross focal deficits noted. Current Medications: Current Medications Sig/Penny Start time Last Medication Dose Route Stop Time Status Admin Acetaminophen 650 MG Q6P PRN 11/06 2044 AC PO Albuterol Sulfate 2 PUF Q4P PRN 11/08 1700 AC 11/15 INH 205 Albuterol Sulfate 3 ML EVERY 4 HRS/AWAKE 11/07 2000 AC 11/16 INH 08 Aspirin 81 MG DAILY 11/07 09 AC 11/16 PO 0915 Atorvastatin Calcium 40 MG DAILY 11/07 0900 AC 11/16 PO 0915 Benzonatate 100 MG TID PRN 11/06 2315 AC 11/15 PO 205 Budesonide/ 2 PUF BID 11/06 2100 AC 11/16 Formoterol Fumarate INH 0908 Carvedilol 6.25 MG BID 11/06 2100 AC 11/16 PO 0916 Clopidogrel Bisulfate 75 MG DAILY 11/07 09 AC 11/16 PO 0916 Dobutamine HCl 250 MG Q4H 11/14 1300 AC 11/16 Dextrose/Water 250 ML IV 0433 Furosemide 40 MG DAILY 11/11 0902 AC 11/16 IV 0909 Guaifenesin 600 MG Q12 11/11 1037 AC 11/16 PO 0916 Insulin Aspart 0 TIDAC/HS 11/08 2100 AC 11/16 SC 0922 Insulin Detemir 25 UNITS QAM 11/09 0900 AC 11/16 SC 0921 Levothyroxine Sodium 0.15 MG DAILY AC 11/07 07 AC 11/16 PO 0434 Nitroglycerin 0.5 GM Q6P PRN 11/10 1300 AC TOP Pantoprazole Sodium 40 MG BID 11/14 2100 AC 11/16 IV 0909 Prednisone 10 MG DAILY 11/19 09 AC PO 11/19 0901 Prednisone 20 MG DAILY 11/18 0900 AC PO 11/18 0901 Prednisone 30 MG DAILY 11/17 09 AC PO 11/17 09 Prednisone 40 MG DAILY 11/16 09 CAN PO 11/20 0859 Prednisone 40 MG DAILY 11/16 0900 DC 11/16 PO 11/16 0901 0916 Prednisone 40 MG DAILY 11/12 0900 DC 11/15 PO 0914 Ramelteon 8 MG AT BEDTIME NEED.. 11/09 2214 AC 11/15 PO 204 Ranolazine 500 MG BID 11/06 2100 AC 11/16 PO 0916 Sertraline HCl 50 MG DAILY 11/07 09 AC 11/16 PO 0916 Tamsulosin HCl 0.4 MG AT BEDTIME 11/06 2099 AC 11/15 PO 204 Tiotropium [place] 1 PUF DAILY 11/07 0900 AC 11/16 INH 0908 Results Last 48 Hrs of Labs/Mics: Laboratory Tests 11/16/17 0628: Anion Gap 5, Estimated GFR 54 L, BUN/Creatinine Ratio 29.2 H, Magnesium 1.8 11/15/17 0640: Anion Gap 3 L, Estimated GFR 49 L, BUN/Creatinine Ratio 25.7 H, CBC w Diff NO MAN DIFF REQ, RBC 3.29 L, MCV 102.5 H, MCH 34.5 H, MCHC 33.7, RDW 17.0 H, MPV 8.4, Gran % 83.6 H, Lymphocytes % 6.6 L, Monocytes % 9.6 H, Eosinophils % 0.2, Basophils % 0, Absolute Granulocytes 8.6 H, Absolute Lymphocytes 0.7 L, Absolute Monocytes 1.0 H, Absolute Eosinophils 0, Absolute Basophils 0 11/14/17 1720: Troponin I 0.04 Recent Imaging Studies: Telemetry tracings were personally reviewed and shows sinus rhythm with PVCs Assessment/Plan Assessment/Plan 1. Shortness of breath likely multifactorial 2. Ischemic cardiomyopathy with prior CABG/PCI 3. AICD in situ 4. Abdominal aortic aneurysm status post prior EVAR 5. Aortic stenosis; moderate 6. Small cell lung CA 7. Hypothyroidism 8. Not on ZULAY inhibitor per reoprt due to CKD with hyperkalemia 9. Acute on chronic systolic congestive heart failure 10. COPD/PATTI 11. Diabetes The patient remains volume overloaded. I would recommend increasing the Lasix to 40 mg IV twice daily while continuing the dobutamine infusion and monitoring strict I's and O's, daily weights, and daily metabolic panels. He will likely benefit from Entresto in the future but will need to discuss with nephrology as well. Per report his ICD was interrogated but the report is not currently in his chart; please locate the ICD interrogation report and place in his chart for cardiology review. Brady Arce MD [facility] Continue telemetry? Yes
[2017-11-16 12:17] VITALS: BP 116/70
--- NOTE | 2017-11-16 12:23 | PN- Nephrology ---
Assessment/Plan Nephrology Assessment: CKD from nephrosclerosis, large component of cardiorenal syndrome with decreased renal perfusion. Good response to low dose dobutamine. Is Suggestion: Agree with increasing Lasix to 40 mg IV bid for greater diuresis. Subjective Subjective: Patient diuresing better on dobuamine but still very volume overloaded. Objective Vital Signs and I&Os Vital Signs Date Time Temp Pulse Resp B/P B/P Pulse O2 O2 Flow FiO2 Mean Ox Delivery Rate 11/16 1217 97.5 83 18 116/70 97 11/16 0916 89 118/68 11/16 0916 89 118/68 11/16 0851 95 Room Air 11/16 0820 98.2 89 18 118/68 97 11/16 0800 Room Air Room Air 11/16 0433 80 126/76 11/16 0340 98.2 80 24 126/76 92 11/16 0016 97.6 93 18 124/78 94 11/155 Room Air 11/15 212 97.6 93 19 138/84 92 11/15 2047 95 122/78 11/15 2044 95 122/78 11/15 2043 95 122/78 11/15 204 95 122/78 11/15 1559 92 Room Air Room Air 11/15 1448 97.9 72 18 112/62 93 Room Air 11/15 1236 75 118/62 Intake & Output 11/16 1600 11/16 0400 11/15 1600 11/15 0400 11/14 1600 11/14 0400 Intake Total 807 462 5687.6 254.8 600 300 Output Total 1500 1974 1700 450 800 550 Balance -1140 -1675 -320.4 -195.2 -200 -250 Intake, IV 559.6 134.8 Intake, Oral 360 300 820 120 600 300 Number 1 Bowel Movements Output, Urine 1500 1974 1700 450 800 550 Patient 247 lb 246 lb 248 lb Weight Weight Bed scale Measurement Method Physical Exam: NAD VS: VS as above Lungs: clear CV: 3/6 GLADYS Abd: nontender Exts: 3 + edema Neuro A&O Current Medications: Current Medications Sig/Penny Start time Last Medication Dose Route Stop Time Status Admin Acetaminophen 650 MG Q6P PRN 11/06 2044 AC PO Albuterol Sulfate 2 PUF Q4P PRN 11/08 170 AC 11/15 INH 2058 Albuterol Sulfate 3 ML EVERY 4 HRS/AWAKE 11/07 2000 AC 11/16 INH 1201 Aspirin 81 MG DAILY 11/07 09 AC 11/16 PO 0915 Atorvastatin Calcium 40 MG DAILY 11/07 09 AC 11/16 PO 0915 Benzonatate 100 MG TID PRN 11/06 2315 AC 11/15 PO 205 Budesonide/ 2 PUF BID 11/06 2100 AC 11/16 Formoterol Fumarate INH 0908 Carvedilol 6.25 MG BID 11/06 2100 AC 11/16 PO 0916 Clopidogrel Bisulfate 75 MG DAILY 11/07 09 AC 11/16 PO 0916 Dobutamine HCl 250 MG Q4H 11/14 1300 AC 11/16 Dextrose/Water 250 ML IV 0433 Furosemide 40 MG DAILY 11/11 0902 AC 11/16 IV 0909 Guaifenesin 600 MG Q12 11/11 1037 AC 11/16 PO 0916 Insulin Aspart 0 TIDAC/HS 11/08 2100 AC 11/16 SC 0922 Insulin Detemir 25 UNITS QAM 11/09 0900 AC 11/16 SC 0921 Levothyroxine Sodium 0.15 MG DAILY AC 11/07 07 AC 11/16 PO 0434 Nitroglycerin 0.5 GM Q6P PRN 11/10 1300 AC TOP Pantoprazole Sodium 40 MG BID 11/14 2100 AC 11/16 IV 0909 Prednisone 10 MG DAILY 11/19 09 AC PO 11/19 09 Prednisone 20 MG DAILY 11/18 0900 AC PO 11/18 09 Prednisone 30 MG DAILY 11/17 09 AC PO 11/17 09 Prednisone 40 MG DAILY 11/16 09 CAN PO 11/20 0859 Prednisone 40 MG DAILY 11/16 09 DC 11/16 PO 11/16 0901 0916 Prednisone 40 MG DAILY 11/12 0900 DC 11/15 PO 0914 Ramelteon 8 MG AT BEDTIME NEED.. 11/09 2214 AC 11/15 PO 204 Ranolazine 500 MG BID 11/06 2100 AC 11/16 PO 0916 Sertraline HCl 50 MG DAILY 11/07 0900 AC 11/16 PO 0916 Tamsulosin HCl 0.4 MG AT BEDTIME 11/06 2100 AC 11/15 PO 204 Tiotropium [place] 1 PUF DAILY 11/07 0900 AC 11/16 INH 0908 Results Pertinent Lab Results: Laboratory Tests 11/16 11/15 11/14 0628 0640 1720 Chemistry Sodium (137 - 145 mmol/L) 134 L 135 L Potassium (3.5 - 5.1 mmol/L) 4.2 4.4 Chloride (98 - 107 mmol/L) 98 97 L Carbon Dioxide (22 - 30 mmol/L) 31 H 34 H Anion Gap (5 - 16) 5 3 L BUN (9 - 20 mg/dL) 38 H 36 H Creatinine (0.7 - 1.2 mg/dL) 1.3 H 1.4 H Estimated GFR (>60 ml/min) 54 L 49 L BUN/Creatinine Ratio (7 - 25 %) 29.2 H 25.7 H Magnesium (1.6 - 2.3 mg/dL) 1.8 Troponin I (<0.11 ng/ml) 0.04 Hematology CBC w Diff NO MAN DIFF REQ WBC (4.8 - 10.8 /CUMM) 10.3 RBC (4.70 - 6.10 /CUMM) 3.29 L Hgb (14.0 - 18.0 G/DL) 11.4 L Hct (42 - 52 %) 33.7 L MCV (80.0 - 94.0 FL) 102.5 H MCH (27.0 - 31.0 PG) 34.5 H MCHC (33.0 - 37.0 G/DL) 33.7 RDW (11.5 - 14.5 %) 17.0 H Plt Count (130 - 400 /CUMM) 108 L MPV (7.4 - 10.4 FL) 8.4 Gran % (42.2 - 75.2 %) 83.6 H Lymphocytes % (20.5 - 51.1 %) 6.6 L Monocytes % (1.7 - 9.3 %) 9.6 H Eosinophils % (0 - 5 %) 0.2 Basophils % (0.0 - 2.0 %) 0 Absolute Granulocytes (1.4 - 6.5 /CUMM) 8.6 H Absolute Lymphocytes (1.2 - 3.4 /CUMM) 0.7 L Absolute Monocytes (0.10 - 0.60 /CUMM) 1.0 H Absolute Eosinophils (0.0 - 0.7 /CUMM) 0 Absolute Basophils (0.0 - 0.2 /CUMM) 0 11/14 0716 Chemistry Sodium (137 - 145 mmol/L) 134 L Potassium (3.5 - 5.1 mmol/L) 4.1 Chloride (98 - 107 mmol/L) 97 L Carbon Dioxide (22 - 30 mmol/L) 31 H Anion Gap (5 - 16) 5 BUN (9 - 20 mg/dL) 37 H Creatinine (0.7 - 1.2 mg/dL) 1.5 H Estimated GFR (>60 ml/min) 46 L BUN/Creatinine Ratio (7 - 25 %) 24.7 Hematology CBC w Diff NO MAN DIFF REQ WBC (4.8 - 10.8 /CUMM) 10.9 H RBC (4.70 - 6.10 /CUMM) 3.33 L Hgb (14.0 - 18.0 G/DL) 11.6 L Hct (42 - 52 %) 34.0 L MCV (80.0 - 94.0 FL) 101.9 H MCH (27.0 - 31.0 PG) 34.7 H MCHC (33.0 - 37.0 G/DL) 34.1 RDW (11.5 - 14.5 %) 16.7 H Plt Count (130 - 400 /CUMM) 116 L MPV (7.4 - 10.4 FL) 8.6 Gran % (42.2 - 75.2 %) 87.7 H Lymphocytes % (20.5 - 51.1 %) 5.8 L Monocytes % (1.7 - 9.3 %) 6.2 Eosinophils % (0 - 5 %) 0.3 Basophils % (0.0 - 2.0 %) 0 Absolute Granulocytes (1.4 - 6.5 /CUMM) 9.6 H Absolute Lymphocytes (1.2 - 3.4 /CUMM) 0.6 L Absolute Monocytes (0.10 - 0.60 /CUMM) 0.7 H Absolute Eosinophils (0.0 - 0.7 /CUMM) 0 Absolute Basophils (0.0 - 0.2 /CUMM) 0
[2017-11-16 16:00] VITALS: BP 116/62
[2017-11-16 21:00] VITALS: BP 118/78
[2017-11-17] VITALS: BP 140/76
[2017-11-17 06:30] VITALS: BP 136/68
--- NOTE | 2017-11-17 07:40 | PN- Housestaff ---
Tre LUND,Bianka 11/17/17 0740: Subjective Follow-up For: Congestive heart failure to Complaints: no complaints Tele-Events Since Last Visit: Normal sinus rhythm Subjective: Patient seen and examined at bedside no overnight events. Slept well overnight. Denies shortness of breath, chest pain, palpitation. He is anxious to go home today. Review of Systems Constitutional: Reports: no symptoms. Objective Last 24 Hrs of Vital Signs/I&O Vital Signs Date Time Temp Pulse Resp B/P B/P Pulse O2 O2 Flow FiO2 Mean Ox Delivery Rate 11/17 1436 98.6 67 16 108/58 92 Room Air 11/17 0914 98.1 74 18 120/68 11/17 0816 98.1 93 18 136/68 11/17 0816 98.1 93 18 136/68 11/17 0810 96 Room Air 11/17 0800 Room Air 11/17 0630 98.1 93 18 136/68 94 11/17 0328 87 140/76 11/17 0000 Nasal 2.0L Cannula 11/17 0000 98.0 87 18 140/76 93 Room Air 11/16 2203 92 112/70 11/16 2157 92 118/70 11/16 2157 92 118/70 11/16 2157 92 118/70 11/16 2100 97.8 92 16 118/78 91 Room Air 11/16 1810 78 116/62 11/16 1615 93 Room Air 11/16 1600 98.2 78 18 116/62 93 Room Air Intake & Output 11/17 1600 11/17 0800 08 0000 Intake Total 67 389.6 254.8 Output Total 400 400 Balance 67 -10.4 -145.2 Intake, IV 67 269.6 134.8 Intake, Oral 120 120 Output, Urine 400 400 Patient 247 lb Weight Physical Exam General Appearance: Alert, Oriented X3, Cooperative, No Acute Distress Cardiovascular: Normal S1, Normal S2, No Murmurs Lungs: Clear to Auscultation Abdomen: Soft, No Tenderness, No Hepatospenomegaly Neurological: Strength at 5/5 X4 Ext, Normal Tone, Sensation Intact, Cranial Nerves 3-12 NL Extremities: 1+pe Current Medications: Current Medications Sig/Penny Start time Last Medication Dose Route Stop Time Status Admin Acetaminophen 650 MG Q6P PRN 11/06 2044 AC PO Albuterol Sulfate 2 PUF Q4P PRN 11/08 1700 AC 11/15 INH 2059 Albuterol Sulfate 3 ML EVERY 4 HRS/AWAKE 11/08 1999 AC 11/17 INH 1248 Aspirin 81 MG DAILY 11/07 09 AC 11/17 PO 0816 Atorvastatin Calcium 40 MG DAILY 11/07 09 AC 11/17 PO 0816 Benzonatate 100 MG TID PRN 11/06 2315 AC 11/15 PO 205 Budesonide/ 2 PUF BID 11/06 2099 AC 11/17 Formoterol Fumarate INH 0818 Carvedilol 6.25 MG BID 11/06 2099 AC 11/17 PO 0816 Clopidogrel Bisulfate 75 MG DAILY 11/07 09 AC 11/17 PO 0816 Dobutamine HCl 250 MG Q4H 11/14 1300 DC 11/17 Dextrose/Water 250 ML IV 0914 Furosemide 60 MG BID 11/17 2100 AC PO Furosemide 40 MG BID 11/16 2100 DC 11/17 IV 0817 Furosemide 40 MG DAILY 11/11 0902 DC 11/16 IV 0909 Guaifenesin 600 MG Q12 11/11 1037 AC 11/17 PO 0816 Insulin Aspart 0 TIDAC/HS 11/08 2100 AC 11/17 SC 1257 Insulin Detemir 25 UNITS QAM 11/09 0900 AC 11/17 SC 0817 Levothyroxine Sodium 0.15 MG DAILY AC 11/07 07 AC 11/17 PO 0554 Losartan Potassium 25 MG DAILY 11/17 929 DC PO Nitroglycerin 0.5 GM Q6P PRN 11/10 1300 AC TOP Omeprazole 40 MG DAILY AC 11/17 07 AC 11/17 PO 0554 Pantoprazole Sodium 40 MG BID 11/14 2100 DC 11/16 IV 0909 Prednisone 10 MG DAILY 11/19 899 AC PO 11/19 09 Prednisone 20 MG DAILY 11/18 899 AC PO 11/18 09 Prednisone 30 MG DAILY 11/17 09 DC 11/17 PO 11/17 0901 0816 Ramelteon 8 MG AT BEDTIME NEED.. 11/09 2214 AC 11/16 PO 215 Ranolazine 500 MG BID 11/06 2099 AC 11/17 PO 0816 Sertraline HCl 50 MG DAILY 11/07 09 AC 11/17 PO 0815 Tamsulosin HCl 0.4 MG AT BEDTIME 11/06 2099 AC 11/16 PO 2157 Tiotropium [place] 1 PUF DAILY 11/07 0900 AC 11/17 INH 0921 Last 24 Hrs of Lab/Abimael Results Last 24 Hrs of Labs/Mics: Laboratory Tests 11/17/17 0625: Anion Gap 6, Estimated GFR 42 L, BUN/Creatinine Ratio 22.5, Magnesium 1.7 Assessment/Plan Assessment: Patient is a 77-year-old male presented with chief complaints of gradually progressive shortness of breath. Past medical history- * Small Cell lung CA (last dose of radiation 3 months ago), * IDDM (dx 3months ago), * Ischemic cardiomyopathy with EF 20% s/p defibrillator placement (Mar 2017), * s/p carotid endarterectomy right side (1997), * CABG (1988), CAD with stents (), * h/o DVT (5 yrs ago), * COPD, * Hypothyroidism * Hypertension * BPH * Obstructive sleep apnea on nocturnal CPAP Assessment and plan CHF exacerbation with ischemic cardiomyopathy with ejection fraction of 20% status post AICD Mar 2017 Patient is treated with Lasix. Patient's IV Lasix 40 twice daily change to 60 p.o. twice daily after discussing with cardiology. Patient's lower extremity swelling has come down. Advised continue Compression stockings. Strict I's and O's Daily weights Leg elevation Patient's aortic valve area has been improved from 0.6 to 2 cm after starting him on dobutamine which signifies that he does not have moderate/severe aortic stenosis. Results of echocardiogram was discussed with the patient. Dobutamine drip was stopped. Patient should be on ZULAY inhibitors but given that his chronic kidney disease at this point we will hold a/Arps. COPD exacerbation Pulmonology on board Continue TRC nebulization Diet-heart healthy diet CODE STATUS DNR/DNI DVT prophylaxis heparin Problem List: 1. CKD stage 3 secondary to diabetes 2. CHF exacerbation 3. COPD exacerbation Pain Ratin Pain Location: none Pain Goal: Remain pain free Pain Plan: tylenol Tomorrow's Labs & Rationales: cbc,bep Zoya Johnston 11/17/17 1352: Attending MD Review Statement Attending Statement Attending MD Statement: examined this patient, discuss w/resident/PA/CARBON GRINDER, agreed w/resident/PA/CARBON GRINDER, reviewed EMR data (avail), discussed with nursing, discussed with case mgmt Attending Assessment/Plan: Acute CHF exacerbation with CKD with resistantce to diuresis- pt was started on dobutamine drip to help with diuresis. Repeat ECHO while on dobutamine drip shows that pt has Psedo arotic stenosis and d/w cardiology and plan will be to cont with medical management to improve his cardiac function. Stopped dobutamine drip and switched to po lasix 60mg bid today. will see how he does with that. Cardio consult appreciated. d/w pt the care plan.
--- NOTE | 2017-11-17 08:37 | PN- Pulmonary ---
Subjective HPI/Critical Care Issues: He continues to diuresis with improving creatine Objective Current Medications: Current Medications Sig/Penny Start time Last Medication Dose Route Stop Time Status Admin Acetaminophen 650 MG Q6P PRN 11/06 2045 AC PO Albuterol Sulfate 2 PUF Q4P PRN 11/08 1700 AC 11/15 INH 2059 Albuterol Sulfate 3 ML EVERY 4 HRS/AWAKE 11/07 2000 AC 11/17 INH 0811 Aspirin 81 MG DAILY 11/07 09 AC 11/17 PO 0816 Atorvastatin Calcium 40 MG DAILY 11/07 09 AC 11/17 PO 0816 Benzonatate 100 MG TID PRN 11/06 2315 AC 11/15 PO 205 Budesonide/ 2 PUF BID 11/06 2100 AC 11/17 Formoterol Fumarate INH 817 Carvedilol 6.25 MG BID 11/06 2100 AC 11/17 PO 0816 Clopidogrel Bisulfate 75 MG DAILY 11/07 09 AC 11/17 PO 0816 Dobutamine HCl 250 MG Q4H 11/14 1300 AC 11/17 Dextrose/Water 250 ML IV 0328 Furosemide 40 MG BID 11/16 2100 AC 11/17 IV 0817 Furosemide 40 MG DAILY 11/11 0902 DC 11/16 IV 0909 Guaifenesin 600 MG Q12 11/11 1037 AC 11/17 PO 0816 Insulin Aspart 0 TIDAC/HS 11/08 2100 AC 11/17 SC 0817 Insulin Detemir 25 UNITS QAM 11/09 0900 AC 11/17 SC 0817 Levothyroxine Sodium 0.15 MG DAILY AC 11/07 07 AC 11/17 PO 0554 Nitroglycerin 0.5 GM Q6P PRN 11/10 1300 AC TOP Omeprazole 40 MG DAILY AC 11/17 0700 AC 11/17 PO 0554 Pantoprazole Sodium 40 MG BID 11/14 2100 DC 11/16 IV 0909 Prednisone 10 MG DAILY 11/19 899 AC PO 11/19 900 Prednisone 20 MG DAILY 11/18 899 AC PO 11/18 09 Prednisone 30 MG DAILY 11/17 0900 AC 11/17 PO 11/17 0901 0816 Prednisone 40 MG DAILY 11/16 09 DC 11/16 PO 11/16 09 0916 Ramelteon 8 MG AT BEDTIME NEED.. 11/09 2214 AC 11/16 PO 215 Ranolazine 500 MG BID 11/06 2099 AC 11/17 PO 0816 Sertraline HCl 50 MG DAILY 11/07 09 AC 11/17 PO 0815 Tamsulosin HCl 0.4 MG AT BEDTIME 11/06 2099 AC 11/16 PO 2157 Tiotropium [place] 1 PUF DAILY 11/07 09 AC 11/16 INH 0908 Vital Signs & I&O Last 24 Hrs of Vitals and I&O: Vital Signs Date Time Temp Pulse Resp B/P B/P Pulse O2 O2 Flow FiO2 Mean Ox Delivery Rate 11/17 0816 98.1 93 18 136/68 11/17 0816 98.1 93 18 136/68 11/17 0630 98.1 93 18 136/68 94 11/17 0328 87 140/76 11/17 0000 Nasal 2.0L Cannula 11/17 0000 98.0 87 18 140/76 93 Room Air 11/16 2203 92 112/70 11/16 2157 92 118/70 11/16 2157 92 118/70 11/16 2157 92 118/70 11/16 2100 97.8 92 16 118/78 91 Room Air 11/16 1810 78 116/62 11/16 1615 93 Room Air 11/16 1600 98.2 78 18 116/62 93 Room Air 11/16 1229 83 116/70 11/16 1217 97.5 83 18 116/70 97 11/16 0916 89 118/68 11/16 0916 89 118/68 11/16 0851 95 Room Air Intake & Output 11/17 1600 11/17 0800 11/17 0000 Intake Total 389.6 254.8 Output Total 400 400 Balance -10.4 -145.2 Intake, IV 269.6 134.8 Intake, Oral 120 120 Output, Urine 400 400 Patient 247 lb Weight Room air oxygen saturation 94% exam for chest shows clear lung alston cardiac exam shows regular S1 and S2 there's 2+ symmetrical lower extremity edema Impression/Plan Impression/Plan Impression/Plan: 77-year-old with COPD congestive heart failure continues to diurese with increased Lasix and dobutamine and improving renal function Recommendations: Continue negative fluid balance with improved creatinine. . Assess oxygen saturation with ambulation. . Continue prednisone taper by 10 mg a day further management of congestive heart failure per cardiology with improved creatinine consider increasing Lasix to twice daily consider physical therapy evaluation to increased mobilization
--- NOTE | 2017-11-17 09:10 | PN- Nephrology ---
Assessment/Plan Nephrology Assessment: CKD with large component of cardiorenal syndrome. Creatiine up slightly \. Suggestion: Will need to tolerate some worsening of creatinine as try and diurese. Subjective Subjective: Patient with 2.5 liters of UO yesterday, feels edema decreasing. Objective Vital Signs and I&Os Vital Signs Date Time Temp Pulse Resp B/P B/P Pulse O2 O2 Flow FiO2 Mean Ox Delivery Rate 11/17 0816 98.1 93 18 136/68 11/17 0816 98.1 93 18 136/68 11/17 0810 96 Room Air 11/17 0630 98.1 93 18 136/68 94 11/17 0328 87 140/76 11/17 0000 Nasal 2.0L Cannula 11/17 0000 98.0 87 18 140/76 93 Room Air 11/16 2203 92 112/70 11/16 2157 92 118/70 11/16 2157 92 118/70 11/16 2157 92 118/70 11/16 2100 97.8 92 16 118/78 91 Room Air 11/16 1810 78 116/62 11/16 1615 93 Room Air 11/16 1600 98.2 78 18 116/62 93 Room Air 11/16 1229 83 116/70 11/16 1217 97.5 83 18 116/70 97 11/16 0916 89 118/68 11/16 0916 89 118/68 Intake & Output 11/17 1600 11/17 0400 11/16 1600 11/16 0400 11/15 1600 11/15 0400 Intake Total 389.6 254.8 7113 167 1442.6 254.8 Output Total 258 793 9664 1974 1699 450 Balance -10.4 -145.2 -210 -1675 -320.4 -195.2 Intake, IV 269.6 134.8 280 559.6 134.8 Intake, Oral 136 092 9266 300 820 120 Number 1 1 Bowel Movements Output, Urine [phone] 1974 1699 450 Patient 247 lb 247 lb 246 lb Weight Weight Bed scale Measurement Method Physical Exam: NAD VS: VS as above Lungs: clear CV: 3/6 GLADYS Abd: nontender Exts: 3 + edema Neuro A&O Current Medications: Current Medications Sig/Penny Start time Last Medication Dose Route Stop Time Status Admin Acetaminophen 650 MG Q6P PRN 11/06 2044 AC PO Albuterol Sulfate 2 PUF Q4P PRN 11/08 1700 AC 11/15 INH 2059 Albuterol Sulfate 3 ML EVERY 4 HRS/AWAKE 11/08 1999 AC 11/17 INH 0811 Aspirin 81 MG DAILY 11/07 09 AC 11/17 PO 0816 Atorvastatin Calcium 40 MG DAILY 11/07 09 AC 11/17 PO 0816 Benzonatate 100 MG TID PRN 11/06 2315 AC 11/15 PO 205 Budesonide/ 2 PUF BID 11/06 2099 AC 11/17 Formoterol Fumarate INH 0818 Carvedilol 6.25 MG BID 11/06 2100 AC 11/17 PO 0816 Clopidogrel Bisulfate 75 MG DAILY 11/07 09 AC 11/17 PO 0816 Dobutamine HCl 250 MG Q4H 11/14 1300 AC 11/17 Dextrose/Water 250 ML IV 0328 Furosemide 40 MG BID 11/16 2100 AC 11/17 IV 0817 Furosemide 40 MG DAILY 11/11 0902 DC 11/16 IV 0909 Guaifenesin 600 MG Q12 11/11 1037 AC 11/17 PO 0816 Insulin Aspart 0 TIDAC/HS 11/08 2100 AC 11/17 SC 0817 Insulin Detemir 25 UNITS QAM 11/09 0900 AC 11/17 SC 0817 Levothyroxine Sodium 0.15 MG DAILY AC 11/07 07 AC 11/17 PO 0554 Nitroglycerin 0.5 GM Q6P PRN 11/10 1300 AC TOP Omeprazole 40 MG DAILY AC 11/17 0700 AC 11/17 PO 0554 Pantoprazole Sodium 40 MG BID 11/14 2100 DC 11/16 IV 0909 Prednisone 10 MG DAILY 11/19 899 AC PO 11/19 09 Prednisone 20 MG DAILY 11/18 09 AC PO 11/18 0901 Prednisone 30 MG DAILY 11/17 09 DC 11/17 PO 11/17 0901 0816 Ramelteon 8 MG AT BEDTIME NEED.. 11/09 2214 AC 11/16 PO 215 Ranolazine 500 MG BID 11/06 2099 AC 11/17 PO 0816 Sertraline HCl 50 MG DAILY 11/07 0900 AC 11/17 PO 0815 Tamsulosin HCl 0.4 MG AT BEDTIME 11/06 2099 AC 11/16 PO 215 Tiotropium [place] 1 PUF DAILY 11/07 0900 AC 11/16 INH 0908 Results Pertinent Lab Results: Laboratory Tests 11/17 11/16 11/15 11/14 0625 0628 0645 1720 Chemistry Sodium (137 - 145 mmol/L) 137 134 L 135 L Potassium (3.5 - 5.1 mmol/L) 3.7 4.2 4.4 Chloride (98 - 107 mmol/L) 99 98 97 L Carbon Dioxide (22 - 30 mmol/L) 31 H 31 H 34 H Anion Gap (5 - 16) 6 5 3 L BUN (9 - 20 mg/dL) 36 H 38 H 36 H Creatinine (0.7 - 1.2 mg/dL) 1.6 H 1.3 H 1.4 H Estimated GFR (>60 ml/min) 42 L 54 L 49 L BUN/Creatinine Ratio (7 - 25 %) 22.5 29.2 H 25.7 H Magnesium (1.6 - 2.3 mg/dL) 1.7 1.8 Troponin I (<0.11 ng/ml) 0.04 Hematology CBC w Diff NO MAN DIFF REQ WBC (4.8 - 10.8 /CUMM) 10.3 RBC (4.70 - 6.10 /CUMM) 3.29 L Hgb (14.0 - 18.0 G/DL) 11.4 L Hct (42 - 52 %) 33.7 L MCV (80.0 - 94.0 FL) 102.5 H MCH (27.0 - 31.0 PG) 34.5 H MCHC (33.0 - 37.0 G/DL) 33.7 RDW (11.5 - 14.5 %) 17.0 H Plt Count (130 - 400 /CUMM) 108 L MPV (7.4 - 10.4 FL) 8.4 Gran % (42.2 - 75.2 %) 83.6 H Lymphocytes % (20.5 - 51.1 %) 6.6 L Monocytes % (1.7 - 9.3 %) 9.6 H Eosinophils % (0 - 5 %) 0.2 Basophils % (0.0 - 2.0 %) 0 Absolute Granulocytes (1.4 - 6.5 /CUMM) 8.6 H Absolute Lymphocytes (1.2 - 3.4 /CUMM) 0.7 L Absolute Monocytes (0.10 - 0.60 /CUMM) 1.0 H Absolute Eosinophils (0.0 - 0.7 /CUMM) 0 Absolute Basophils (0.0 - 0.2 /CUMM) 0
--- NOTE | 2017-11-17 09:20 | PN- Cardiology ---
Subjective Subjective: Telemetry reviewed. Paced rhythm. Patient appears comfortable. On IV dobutamine and IV Lasix. Objective Vital Signs and I&Os Vital Signs Date Time Temp Pulse Resp B/P B/P Pulse O2 O2 Flow FiO2 Mean Ox Delivery Rate 11/17 0914 98.1 74 18 120/68 11/17 0816 98.1 93 18 136/68 11/17 0816 98.1 93 18 136/68 11/17 0810 96 Room Air 11/17 0630 98.1 93 18 136/68 94 11/17 0328 87 140/76 11/17 0000 Nasal 2.0L Cannula 11/17 0000 98.0 87 18 140/76 93 Room Air 11/16 2203 92 112/70 11/16 2157 92 118/70 11/16 2157 92 118/70 11/16 2157 92 118/70 11/16 2100 97.8 92 16 118/78 91 Room Air 11/16 1810 78 116/62 11/16 1615 93 Room Air 11/16 1600 98.2 78 18 116/62 93 Room Air 11/16 1229 83 116/70 11/16 1217 97.5 83 18 116/70 97 Intake & Output 11/17 1600 11/17 0800 11/17 0000 11/16 1600 11/16 0800 11/16 0000 Intake Total 389.6 254.8 1130 360 300 Output Total 054 091 0144 575 1550 Balance -10.4 -145.2 -420 -215 -1250 Intake, IV 269.6 134.8 280 Intake, Oral 120 120 850 360 300 Number 1 Bowel Movements Output, Urine 247 169 8703 575 1550 Patient 247 lb 247 lb Weight Physical Exam: On general exam patient appeared comfortable Head normocephalic atraumatic Eyes sclera anicteric conjunctiva showed no bilateral muscle normal Neck no jugular venous distention no thyroid masses Chest lungs with few scattered crackles Heart irregular rhythm with a grade 2/6 systolic murmur Abdomen protuberant Extremities with 1+ edema Neurological no gross motor or sensory deficits. Assessment/Plan Assessment/Plan In summary this 77-year-old gentleman has a following problems 1. Shortness of breath likely multifactorial 2. Ischemic cardiomyopathy with prior CABG/PCI 3. AICD in situ 4. Abdominal aortic aneurysm status post prior EVAR 5. Aortic stenosis; moderate 6. Small cell lung CA 7. Hypothyroidism 8. Not on ZULAY inhibitor per reoprt due to CKD with hyperkalemia 9. Acute on chronic systolic congestive heart failure 10. COPD/PATTI 11. Diabetes I would continue IV dobutamine for a total of 48 hours. May change Lasix to 60 mg p.o. twice daily. Hesitant to yet use an ZULAY inhibitor. Get record of AICD check. Probably anticipate discharge in 24-48 hours. Continue telemetry? Yes
[2017-11-17 14:36] VITALS: BP 108/58
[2017-11-17 22:53] VITALS: BP 118/62
[2017-11-18] VITALS (10 sets, daily range): BP systolic 103–132; BP diastolic 52–68
--- NOTE | 2017-11-18 07:56 | PN- Housestaff ---
William LUND,Jennifer 11/18/17 0755: Subjective Follow-up For: Congestive heart failure Tele-Events Since Last Visit: No overnight events Subjective: Patient was seen and examined, vital signs stable, fluid balance -1175, creatinine increased to 1.6. Review of Systems Constitutional: Reports: see HPI. Objective Last 24 Hrs of Vital Signs/I&O Vital Signs Date Time Temp Pulse Resp B/P B/P Pulse O2 O2 Flow FiO2 Mean Ox Delivery Rate 11/18 1420 98.6 77 16 103/55 97 Room Air 11/18 0850 132/64 11/18 0850 132/64 11/18 0820 94 Room Air 11/18 0800 Room Air 11/18 0630 98.2 72 18 132/64 93 Room Air 11/17 2253 97.9 80 16 118/62 91 Room Air 11/17 2032 Room Air 11/17 202 67 108/58 11/17 202 67 108/58 11/17 1605 93 Room Air 11/17 1600 Room Air Intake & Output 11/18 1600 11/18 0800 11/18 0000 Intake Total 480 425 320 Output Total 80 1600 800 Balance 400 -1175 -480 Intake, Oral 480 425 320 Output, Urine 80 1600 800 Physical Exam General Appearance: Alert, Oriented X3, Cooperative HEENT: Atraumatic, PERRLA, EOMI, Mucous Membr. moist/pink Neck: Supple, No JVD Cardiovascular: Normal S1, Normal S2 Lungs: Clear to Auscultation Abdomen: Normal Bowel Sounds, Soft, No Tenderness Extremities: 2 + piting edema bilateral Assessment/Plan Assessment: Patient is a 77-year-old male presented with chief complaints of gradually progressive shortness of breath. Past medical history- * Small Cell lung CA (last dose of radiation 3 months ago), * IDDM (dx 3months ago), * Ischemic cardiomyopathy with EF 20% s/p defibrillator placement (Mar 2017), * s/p carotid endarterectomy right side (1997), * CABG (1988), CAD with stents (), * h/o DVT (5 yrs ago), * COPD, * Hypothyroidism * Hypertension * BPH * Obstructive sleep apnea on nocturnal CPAP Assessment and plan CHF exacerbation with ischemic cardiomyopathy with ejection fraction of 20% status post AICD Mar 2017 restart dobutamine drip at 5 Restart IV Lasix Monitor BEP DC p.o. Lasix patient's lower extremity swelling has come down. Advised continue Compression stockings. Strict I's and O's Daily weights Leg elevation Patient's aortic valve area has been improved from 0.6 to 2 cm after starting him on dobutamine which signifies that he does not have moderate/severe aortic stenosis. Results of echocardiogram was discussed with the patient. Patient should be on ZULAY inhibitors but given that his chronic kidney disease at this point we will hold a/ABSs. COPD exacerbation On prednisone taper Pulmonology on board Continue TRC nebulization Diet-heart healthy diet CODE STATUS DNR/DNI DVT prophylaxis heparin Problem List: 1. CHF exacerbation 2. COPD exacerbation Pain Ratin Pain Location: N/A Pain Goal: Remain pain free Pain Plan: [facility] Labs & Rationales: CBC BEP DVT/Prophylaxis: mechanical, pharmacological Zoya Johnston 11/18/17 1111: Attending MD Review Statement Attending Statement Attending MD Statement: examined this patient, discuss w/resident/PA/GEAR HOBBER SET UP OPERATOR, agreed w/resident/PA/GEAR HOBBER SET UP OPERATOR, reviewed EMR data (avail), discussed with nursing, discussed with case mgmt Attending Assessment/Plan: Acute systolic CHF exacerbation with CKD with resistantce to diuresis- pt was started on dobutamine drip to help with diuresis. Repeat ECHO while on dobutamine drip shows that pt has Psedo arotic stenosis and d/w cardiology and plan will be to cont with medical management to improve his cardiac function. Restart dobutamine per cardiology and cont lasix. F/u on BEP results. d/w pt the care plan.
--- NOTE | 2017-11-18 08:43 | PN- Pulmonary ---
Subjective HPI/Critical Care Issues: Shortness breath is markedly improved he continues to diurese to creatinine has increased from 1.3-1.6 Objective Current Medications: Current Medications Sig/Penny Start time Last Medication Dose Route Stop Time Status Admin Acetaminophen 650 MG Q6P PRN 11/06 2044 AC PO Albuterol Sulfate 2 PUF Q4P PRN 11/08 1700 AC 11/15 INH 205 Albuterol Sulfate 3 ML EVERY 4 HRS/AWAKE 11/07 2000 AC 11/18 INH 0820 Aspirin 81 MG DAILY 11/07 09 AC 11/17 PO 08 Atorvastatin Calcium 40 MG DAILY 11/07 09 AC 11/17 PO 815 Benzonatate 100 MG TID PRN 11/06 2315 AC 11/17 PO 2025 Budesonide/ 2 PUF BID 11/06 2099 AC 11/17 Formoterol Fumarate INH 2025 Carvedilol 6.25 MG BID 11/06 2100 AC 11/17 PO 2025 Clopidogrel Bisulfate 75 MG DAILY 11/07 09 AC 11/17 PO 0816 Dobutamine HCl 250 MG Q4H 11/14 1300 DC 11/17 Dextrose/Water 250 ML IV 0914 Furosemide 60 MG BID 11/17 2100 AC 11/17 PO 2025 Furosemide 40 MG BID 11/16 2100 DC 11/17 IV 0817 Guaifenesin 600 MG Q12 11/11 1037 AC 11/17 PO 2025 Insulin Aspart 0 TIDAC/HS 11/08 2100 AC 11/18 SC 0804 Insulin Detemir 25 UNITS QAM 11/09 0900 AC 11/17 SC 0817 Levothyroxine Sodium 0.15 MG DAILY AC 11/07 07 AC 11/18 PO 0614 Losartan Potassium 25 MG DAILY 11/17 09 DC PO Nitroglycerin 0.5 GM Q6P PRN 11/10 1300 AC TOP Omeprazole 40 MG DAILY AC 11/17 0700 AC 11/18 PO 0614 Prednisone 10 MG DAILY 11/19 899 AC PO 11/19 900 Prednisone 20 MG DAILY 11/18 09 AC PO 11/18 09 Prednisone 30 MG DAILY 11/17 0900 DC 11/17 PO 11/17 0901 0816 Ramelteon 8 MG AT BEDTIME NEED.. 11/09 2214 AC 11/16 PO 215 Ranolazine 500 MG BID 11/06 2099 AC 11/17 PO 2025 Sertraline HCl 50 MG DAILY 11/07 09 AC 11/17 PO 0815 Tamsulosin HCl 0.4 MG AT BEDTIME 11/06 2099 AC 11/17 PO 2025 Tiotropium [place] 1 PUF DAILY 11/07 09 AC 11/17 INH 0921 Vital Signs & I&O Last 24 Hrs of Vitals and I&O: Vital Signs Date Time Temp Pulse Resp B/P B/P Pulse O2 O2 Flow FiO2 Mean Ox Delivery Rate 11/18 0630 98.2 72 18 132/64 93 Room Air 11/17 2253 97.9 80 16 118/62 91 Room Air 11/17 2032 Room Air 11/17 202 67 108/58 11/17 2026 67 108/58 11/17 1605 93 Room Air 11/17 1600 Room Air 11/17 1436 98.6 67 16 108/58 92 Room Air 11/17 0914 98.1 74 18 120/68 Intake & Output 11/18 1600 11/18 0800 11/18 0000 Intake Total 425 320 Output Total 1600 800 Balance -1175 -480 Intake, Oral 425 320 Output, Urine 1600 800 Tumor oximetry 93% exam of his chest shows clear lung [place] are no wheezes cardiac exam shows normal S1 and S2 lower extremity edema is markedly improved Impression/Plan Impression/Plan Impression/Plan: 77-year-old gentleman with history of COPD congestive heart failure has improved significantly with diuresis. Recommendations: Complete prednisone taper. Reduce Lasix with increasing creatinine. Patient was advised to utilize compression stockings for edema control and instructed as to their usage. She can be followed in the office as an outpatient in the next week
--- NOTE | 2017-11-18 08:56 | Patient Discharge Instructions ---
See Addendum Discharge Instructions General Discharge Information You were seen/treated for: COPD EXACERBATION CHF Special Instructions: 1- PLEASE FOLLOW UP WITH YOUR SUPERVISOR TRAVEL TRAILER IN 1 WEEK OF DISCHARGE 2- PLEASE FOLLOW UP WITH YOUR SHEETFED PRESS OPERATOR IN 1 WEEK MF DISCHARGE 3- PLEASE FOLLOW UP WITH YOUR PCP IN 1 WEEK OF DISCHARGE Diet Continue normal diet: No Recommended Diet: Diabetic Acute Coronary Syndrome Inclusion Criteria At DC or during hospital stay patient has or had the following: ACS DIAGNOSIS No Discharge Core Measures Meds if any: Prescribed or Continued at Discharge Meds if any: NOT Prescribed or Continued at Discharge Congestive Heart Failure Inclusion Criteria At DC or during hospital stay patient has or had the following: CHF DIAGNOSIS Yes Discharge Core Measures Meds if any: Prescribed or Continued at Discharge ZULAY/ARB for EF <40% No (CKD STAGE 3) Meds if any: NOT Prescribed or Continued at Discharge No ZULAY/ARB d/t Renal Failure/Azotemia Cerebrovascular accident Inclusion Criteria At DC or during hospital stay patient has or had the following: CVA/TIA Diagnosis No Discharge Core Measures Meds if any: Prescribed or Continued at Discharge Meds if any: NOT Prescribed or Continued at Discharge Venous thromboembolism Inclusion Criteria VTE Diagnosis No VTE Type NONE VTE Confirmed by (Test) NONE Discharge Core Measures - Per Current guidelines, there needs to be overlap - treatment for the first 5 days of Warfarin therapy. - If discharged on Warfarin prior to 5 days of - overlap therapy, the patient will need to be - assessed for post discharge needs including - *Post discharge parental anticoagulation - *Warfarin and/or parental anticoagulation education - *Follow up date to check INR post discharge At least 5 days overlap therapy as Inpatient No Meds if any: Prescribed or Continued at Discharge Note: Overlap Therapy is Warfarin and Anticoagulant Meds if any: NOT Prescribed or Continued at Discharge
--- NOTE | 2017-11-18 10:06 | PN- Nephrology ---
Assessment/Plan Nephrology Assessment: Still volume overloaded although better. No new labs today. Suggestion: As stated yesterday may need to tolerate some prerenal azotemia to keep out of symptomatic CHF. Discussed with cardiology and could consider another day or two of dobutamine/IV Lasix to see if we can get his volume status better. Subjective Subjective: Patient taken off Dobutamine, changed to po Lasix. UO down yesterday but patient states some of urine discarded and not recorded. Still gets SOB when walks. Objective Vital Signs and I&Os Vital Signs Date Time Temp Pulse Resp B/P B/P Pulse O2 O2 Flow FiO2 Mean Ox Delivery Rate 11/18 0850 132/64 11/18 0850 132/64 11/18 0820 94 Room Air 11/18 0630 98.2 72 18 132/64 93 Room Air 11/17 2253 97.9 80 16 118/62 91 Room Air 11/17 2032 Room Air 11/17 2026 67 108/58 11/17 2026 67 108/58 11/17 1605 93 Room Air 11/17 1600 Room Air 11/17 1436 98.6 67 16 108/58 92 Room Air Intake & Output 11/18 1600 11/18 0400 11/17 1600 11/17 0400 11/16 1600 11/16 0400 Intake Total 422 209 1653.6 254.8 1490 300 Output Total 1600 800 509 707 7364 1974 Balance -1175 -480 916.6 -145.2 -210 -1675 Intake, IV 336.6 134.8 280 Intake, Oral 425 320 226 687 4934 300 Number 1 Bowel Movements Output, Urine 1600 800 786 202 9134 1974 Patient 247 lb 247 lb Weight Physical Exam: NAD VS: VS as above Lungs: clear CV: 3/6 GLADYS Abd: nontender Exts: 2 + edema Neuro A&O Current Medications: Current Medications Sig/Penny Start time Last Medication Dose Route Stop Time Status Admin Acetaminophen 650 MG Q6P PRN 11/06 2044 AC PO Albuterol Sulfate 2 PUF Q4P PRN 11/08 1699 AC 11/15 INH 2058 Albuterol Sulfate 3 ML EVERY 4 HRS/AWAKE 11/08 1999 AC 11/18 INH 08 Aspirin 81 MG DAILY 11/07 899 AC 11/18 PO 0849 Atorvastatin Calcium 40 MG DAILY 11/07 899 AC 11/18 PO 0850 Benzonatate 100 MG TID PRN 11/06 2315 AC 11/17 PO 2025 Budesonide/ 2 PUF BID 11/06 2100 AC 11/18 Formoterol Fumarate INH 0849 Carvedilol 6.25 MG BID 11/06 2100 AC 11/18 PO 0850 Clopidogrel Bisulfate 75 MG DAILY 11/07 09 AC 11/18 PO 0850 Furosemide 60 MG BID 11/17 2100 AC 11/18 PO 0850 Furosemide 40 MG BID 11/16 2100 DC 11/17 IV 0817 Guaifenesin 600 MG Q12 11/11 1037 AC 11/18 PO 0850 Insulin Aspart 0 TIDAC/HS 11/08 2100 AC 11/18 SC 0804 Insulin Detemir 25 UNITS QAM 11/09 09 AC 11/18 SC 0849 Levothyroxine Sodium 0.15 MG DAILY AC 11/07 07 AC 11/18 PO 0614 Losartan Potassium 25 MG DAILY 11/17 09 DC PO Nitroglycerin 0.5 GM Q6P PRN 11/10 1300 AC TOP Omeprazole 40 MG DAILY AC 11/17 07 AC 11/18 PO 0614 Patient Medication 1 ED ONE ONE 11/18 929 DC Teaching ED 11/18 930 Prednisone 10 MG DAILY 11/19 899 AC PO 11/19 09 Prednisone 20 MG DAILY 11/18 0900 DC 11/18 PO 11/18 0901 0850 Ramelteon 8 MG AT BEDTIME NEED.. 11/095 AC 11/16 PO 2157 Ranolazine 500 MG BID 11/06 2100 AC 11/18 PO 0850 Sertraline HCl 50 MG DAILY 11/07 09 AC 11/18 PO 0850 Tamsulosin HCl 0.4 MG AT BEDTIME 11/06 2099 AC 11/17 PO 2025 Tiotropium [place] 1 PUF DAILY 11/07 09 AC 11/18 INH 0849 Results Pertinent Lab Results: Laboratory Tests 11/17 11/16 0625 0628 Chemistry Sodium (137 - 145 mmol/L) 137 134 L Potassium (3.5 - 5.1 mmol/L) 3.7 4.2 Chloride (98 - 107 mmol/L) 99 98 Carbon Dioxide (22 - 30 mmol/L) 31 H 31 H Anion Gap (5 - 16) 6 5 BUN (9 - 20 mg/dL) 36 H 38 H Creatinine (0.7 - 1.2 mg/dL) 1.6 H 1.3 H Estimated GFR (>60 ml/min) 42 L 54 L BUN/Creatinine Ratio (7 - 25 %) 22.5 29.2 H Magnesium (1.6 - 2.3 mg/dL) 1.7 1.8
--- NOTE | 2017-11-18 11:17 | PN- Cardiology ---
Subjective Subjective: Patient reports orthopnea improving but still with significant lower extremity edema Objective Vital Signs and I&Os Vital Signs Date Time Temp Pulse Resp B/P B/P Pulse O2 O2 Flow FiO2 Mean Ox Delivery Rate 11/18 0850 132/64 11/18 0850 132/64 11/18 0820 94 Room Air 11/18 0630 98.2 72 18 132/64 93 Room Air 11/17 2253 97.9 80 16 118/62 91 Room Air 11/17 2032 Room Air 11/17 202 67 108/58 11/17 2026 67 108/58 11/17 1605 93 Room Air 11/17 1600 Room Air 11/17 1436 98.6 67 16 108/58 92 Room Air Intake & Output 11/18 1600 11/18 0811/18 0000 11/17 1600 11/17 0000 Intake Total 425 320 927 389.6 254.8 Output Total 1600 800 400 400 Balance -1175 -480 927 -10.4 -145.2 Intake, IV 67 269.6 134.8 Intake, Oral 425 320 860 120 120 Output, Urine 1600 800 400 400 Patient 247 lb Weight Physical Exam: General: no apparent distress. Alert. Eyes: No obvious scleral icterus. HEENT: No jugular venous distention or abnormal jugular venous pulsations. Cardiovascular: Normal intensity S1/S2. Regular. ICD noted, 2 out of 6 systolic murmur Respiratory: No rales or rhonchi Abdomen: Soft, nontender with no guarding or rebound tenderness. Musculoskeletal: No clubbing or cyanosis noted; 2+ lower extremity edema Skin: warm Neurologic: No gross focal deficits noted. Current Medications: Current Medications Sig/Penny Start time Last Medication Dose Route Stop Time Status Admin Acetaminophen 650 MG Q6P PRN 11/06 2044 AC PO Albuterol Sulfate 2 PUF Q4P PRN 11/08 170 AC 11/15 INH 205 Albuterol Sulfate 3 ML EVERY 4 HRS/AWAKE 11/08 1999 AC 11/18 INH 0820 Aspirin 81 MG DAILY 11/07 899 AC 11/18 PO 0849 Atorvastatin Calcium 40 MG DAILY 11/07 899 AC 11/18 PO 0850 Benzonatate 100 MG TID PRN 11/06 2315 AC 11/17 PO 2025 Budesonide/ 2 PUF BID 11/06 2099 AC 08/31 Formoterol Fumarate INH 0849 Carvedilol 6.25 MG BID 11/06 2100 AC 11/18 PO 0850 Clopidogrel Bisulfate 75 MG DAILY 11/07 09 AC 11/18 PO 0850 Furosemide 60 MG BID 11/17 2100 AC 11/18 PO 0850 Guaifenesin 600 MG Q12 11/11 1037 AC 11/18 PO 0850 Insulin Aspart 0 TIDAC/HS 11/08 2100 AC 11/18 SC 0804 Insulin Detemir 25 UNITS QAM 11/09 0900 AC 11/18 SC 0849 Levothyroxine Sodium 0.15 MG DAILY AC 11/07 0700 AC 11/18 PO 0614 Nitroglycerin 0.5 GM Q6P PRN 11/10 1300 AC TOP Omeprazole 40 MG DAILY AC 11/17 07 AC 11/18 PO 0614 Patient Medication 1 ED ONE ONE 11/18 929 DC Teaching ED 11/18 930 Prednisone 10 MG DAILY 11/19 09 AC PO 11/19 09 Prednisone 20 MG DAILY 11/18 09 DC 11/18 PO 11/18 0901 0850 Ramelteon 8 MG AT BEDTIME NEED.. 11/09 2214 AC 11/16 PO 2157 Ranolazine 500 MG BID 11/06 2100 AC 11/18 PO 0850 Sertraline HCl 50 MG DAILY 11/07 09 AC 11/18 PO 0850 Tamsulosin HCl 0.4 MG AT BEDTIME 11/06 2099 AC 11/17 PO 2026 Tiotropium [place] 1 PUF DAILY 11/07 09 AC 11/18 INH 0849 Results Last 48 Hrs of Labs/Mics: Laboratory Tests 11/18/17 1020: Sodium Pending, Potassium Pending, Chloride Pending, Carbon Dioxide Pending, Anion Gap Pending, BUN Pending, Creatinine Pending, BUN/Creatinine Ratio Pending 11/17/17 0625: Anion Gap 6, Estimated GFR 42 L, BUN/Creatinine Ratio 22.5, Magnesium 1.7 Recent Imaging Studies: Telemetry tracings were personally reviewed and shows sinus rhythm with PVCs Assessment/Plan Assessment/Plan 1. Shortness of breath likely multifactorial 2. Ischemic cardiomyopathy with prior CABG/PCI 3. AICD in situ 4. Abdominal aortic aneurysm status post prior EVAR 5. Aortic stenosis; moderate 6. Small cell lung CA 7. Hypothyroidism 8. Not on ZULAY inhibitor per reoprt due to CKD with hyperkalemia 9. Acute on chronic systolic congestive heart failure 10. COPD/PATTI 11. Diabetes While the patient is improving he is still volume overloaded; discussed with nephrology and the medical team and the patient will likely benefit from further diuresis with inotropic support until he is back to baseline; recommend reinitiating his dobutamine infusion; metabolic panel from today is still pending but will likely also benefit from going back on twice daily IV Lasix for now; daily metabolic panels should be checked along with strict I's and O's and daily weights. ICD interrogation report was personally reviewed and shows no significant events. When the patient is at baseline he will likely benefit from the initiation of Entresto. Brady Arce MD [facility] Continue telemetry? Yes
--- NOTE | 2017-11-18 13:50 | PN- Student ---
Subjective Subjective: The patient is seen and examined this morning. He states that his SOB is no worse but reports persistent orthopnea. He feels that the swelling in his legs has improved but is still not back to his baseline. Reports that he would like to be discharged home. He denies any CP, palpitations, fevers, or chills. Objective Objective: Vitals: temperature 98.2F, pulse 72, respiratory rate 18, blood pressure 132/64, oxygen saturation 93% on room air General: well-developed well-nourished male sitting up in bed, mildly increased work of breathing at the patient's baseline, no apparent respiratory distress CV: regular rate and rhythm, 2/6 systolic ejection murmur heard best over the left upper sternal border, normal S1 and S2 Pulmonary: mild scant expiratory wheezing that is much improved from previous exam, patient has some increased work of breathing at his baseline but there is no evidenc of accessory muscle use, no respiratory distress, no crackles appreciated Extremities: 2+ pitting edema of the lower extremities bilaterally, DP 1+ on the right and not palpable on the left due to persistent edema, left DP pulse able to be detected with doppler yesterday Assessment/Plan Assessment: 77 y/o male with history of CAD s/p CABG (1993) and stent placement with AICD in place, ischemic cardiomyopathy with estimated EF of 25-30% per echocardiogram on 11/14, HTN, COPD with a > 50 pack year smoking history (quit smoking 8 months ago ) not on home oxygen, small cell lung cancer s/p radiation treatment (last dose of radiation 3 months ago), PATTI, hypothyroidim, CKD stage III, and IDDM admitted on 11/06/2017 for worsneing SOB. Plan: Problem list: #COPD exacerbation - patient was evaluated by commercial review appraiser Dr. Damico today () who recommended that the patient complete his prednisone taper. He is on 10 mg prednisone today. The patient can follow up in the office as an outpatient. Continue with TRC as needed in the hospital. #CHF - patient continues to be volume overloaded and was in positive fluid balance of 436.6 L yesterday. Cardiology would like the patient to have a net fluid output of approximately 1L per day. The patient was evaluated by Dr. Arce today (11/18) who recommended restarting dobutamine drip for continued diuresis. We will also restart IV Lasix (60 mg IV BID). Monitor strict Is and Os as well as daily weights and metabolic panels. Per cardiology patient will be a good candidate for Entresto once he is discharged from the hospital. Patient will be referred to the CHF clinic for outpatient follow up. He is encouraged to wear compression stockings and to elevate legs to help with edema. #CKD III - patient has been evaluated by Dr. Sotelo today (11/18) who agrees that the patient will likely need to tolerate some prerenal azotemia with continued diuresis. Repeat creatinine today was 1.7. Metabolic panel will be monitored daily. Per cardiology report from yesterday patient may not be a good candidate for ZULAY inhibitor given his CKD. Potassium today was 3.8. #IDDM - continue with sliding scale insulin and 25 units long-acting insulin detemir. Check blood glucose prior to each meal. #Hypothyroidism - continue with levothyroxine 0.15 mg QD #Thrombocytopenia - platelets last measured at 108 on 11/15. #DVT prophylaxis - compression stockings and ambulation as tolerated #Diet - CHF diet #Activity - OOB as tolerated
[2017-11-19 02:03] VITALS: BP 120/62
[2017-11-19 05:54] VITALS: BP 122/72
--- NOTE | 2017-11-19 08:29 | PN- Housestaff ---
See Addendum Subjective Follow-up For: Congestive heart failure Subjective: Afebrile overnight. Patient is seen and examined this morning. Patient blood pressure was 90/52 at around 9 AM but has come up to 100/50 after checking in one hour. Patient denies any chest pain or palpitations this morning. Patient does state he has some broncial congestion and has shortness of breath at baseline but otherwise is having stable breathing. Patient also denies any fevers, chills, fatigue, dizziness, ligtheadedness, and n/v. Review of Systems Constitutional: Reports: see HPI. Objective Last 24 Hrs of Vital Signs/I&O Vital Signs Date Time Temp Pulse Resp B/P B/P Pulse O2 O2 Flow FiO2 Mean Ox Delivery Rate 11/19 0835 94 Room Air Room Air 11/19 0554 97.8 77 18 122/72 93 Room Air 11/19 0203 97.7 75 18 120/62 95 Room Air 11/19 0106 77 11/18 2150 98.2 92 18 108/68 97 Room Air 11/18 2040 97.5 81 19 120/62 94 Room Air Room Air 11/18 1945 98.1 77 18 106/52 94 Room Air 11/18 1923 95 Room Air Room Air 11/18 1840 98.2 77 18 118/68 93 Room Air Room Air 11/18 1825 98.2 79 18 118/64 94 Room Air Room Air 11/18 1810 98.3 83 18 115/62 93 Room Air Room Air 11/18 1755 98.0 81 18 108/60 93 Room Air Room Air 11/18 1740 80 18 110/56 11/18 1740 80 18 110/56 94 Room Air Room Air 11/18 1420 98.6 77 16 103/55 97 Room Air 11/18 0850 132/64 11/18 0850 132/64 Intake & Output 11/19 1600 11/19 0800 09 0000 Intake Total 519.6 256.8 Output Total 1000 1400 Balance -480.4 -1143.2 Intake, IV 269.6 156.8 Intake, Oral 250 100 Output, Urine 1000 1400 Patient 233 lb Weight Weight Bed scale Measurement Method Physical Exam General Appearance: Alert, Oriented X3, Cooperative, No Acute Distress HEENT: Atraumatic Neck: Supple, No JVD Cardiovascular: Regular Rate, Normal S1, Normal S2 Lungs: decreased breath sounds noted b/l Neurological: Normal Speech Extremities: 2 + piting edema bilateral Assessment/Plan Assessment: 77-year-old male presented with chief complaints of gradually progressive shortness of breath. Past medical history- * Small Cell lung CA (last dose of radiation 3 months ago), * IDDM (dx 3months ago), * Ischemic cardiomyopathy with EF 20% s/p defibrillator placement (Mar 2017), * s/p carotid endarterectomy right side (1997), * CABG (1988), CAD with stents (), * h/o DVT (5 yrs ago), * COPD, * Hypothyroidism * Hypertension * BPH * Obstructive sleep apnea on nocturnal CPAP #CHF exacerbation with ischemic cardiomyopathy with ejection fraction of 20% status post AICD Mar 2017 -Restarted dobutamine drip at 5 -Restarted IV Lasix 60 MG bid -Monitor BEP -Patient's lower extremity swelling has come down. Advised continue -Compression stockings. -Strict I's and O's -Daily weights -Leg elevation -Patient's aortic valve area has been improved from 0.6 to 2 cm after starting him on dobutamine which signifies that he does not have moderate/severe aortic stenosis. Results of echocardiogram was discussed with the patient. Patient should be on ZULAY inhibitors but given that his chronic kidney disease at this point we will hold a/ABSs. #COPD exacerbation -On prednisone taper -Pulmonology on board -Continue TRC nebulization Heart healthy diet DNR/DNI DVT prophylaxis heparin Problem List: 1. COPD exacerbation 2. CHF exacerbation Pain Ratin Pain Location: na Pain Goal: Remain pain free Pain Plan: na Tomorrow's Labs & Rationales: routine routine
[2017-11-19 08:59] LABS: ABSOLUTE BASOPHIL COUNT 0 /CUMM (0.0-0.2); ABSOLUTE EOSINOPHIL COUNT 0 /CUMM (0.0-0.7); ABSOLUTE GRANULOCYTE CT 10.3 /CUMM (1.4-6.5); ABSOLUTE LYMPH COUNT 0.8 /CUMM (1.2-3.4); ABSOLUTE MONOCYTE COUNT 0.8 /CUMM (0.10-0.60); BASOPHIL % 0 % (0.0-2.0); EOSINOPHIL % 0.1 % (0-5); GRANULOCYTE % 86.8 % (42.2-75.2); MEAN CORPUSCULAR HGB 34.4 PG (27.0-31.0); MEAN CORPUSCULAR HGB CONC 33.7 G/DL (33.0-37.0); MEAN CORPUSCULAR VOLUME 102.2 FL (80.0-94.0); MEAN PLATELET VOLUME 8.8 FL (7.4-10.4); PLATELET COUNT 106 /CUMM (130-400); RBC DISTRIBUTION WIDTH 16.9 % (11.5-14.5); RED BLOOD CELL CT 3.62 /CUMM (4.70-6.10); WHITE BLOOD CELL COUNT 11.9 /CUMM (4.8-10.8)
[2017-11-19 10:02] VITALS: BP 100/50
--- NOTE | 2017-11-19 12:01 | PN- Cardiology ---
Subjective Subjective: The patient is sitting in the bedside chair. He feels slightly better today. Diuresis noted. Currently maintained on dobutamine. Objective Vital Signs and I&Os Vital Signs Date Time Temp Pulse Resp B/P B/P Pulse O2 O2 Flow FiO2 Mean Ox Delivery Rate 11/19 1135 87 11270 11/19 1135 87 11270 11/19 1002 87 100/50 11/19 0852 77 90/52 11/19 0835 94 Room Air Room Air 11/19 0800 94 Room Air Room Air 11/19 0554 97.8 77 18 122/72 93 Room Air 11/19 0203 97.7 75 18 120/62 95 Room Air 11/19 0106 77 08 2150 98.2 92 18 108/68 97 Room Air 11/18 2040 97.5 81 19 120/62 94 Room Air Room Air 11/18 1945 98.1 77 18 106/52 94 Room Air 11/18 1923 95 Room Air Room Air 11/18 1840 98.2 77 18 118/68 93 Room Air Room Air 11/18 1825 98.2 79 18 118/64 94 Room Air Room Air 11/18 1810 98.3 83 18 115/62 93 Room Air Room Air 11/18 1755 98.0 81 18 108/60 93 Room Air Room Air 11/18 1740 80 18 110/56 11/18 1740 80 18 110/56 94 Room Air Room Air 11/18 1420 98.6 77 16 103/55 97 Room Air Intake & Output 11/19 1600 11/19 0811/19 0000 11/18 1600 11/18 0800 11/18 0000 Intake Total 519.6 256.8 480 425 320 Output Total 1000 1400 80 1600 800 Balance -480.4 -1143.2 400 -1175 -480 Intake, IV 269.6 156.8 Intake, Oral 250 100 480 425 320 Output, Urine 1000 1400 80 1600 800 Patient 233 lb Weight Weight Bed scale Measurement Method Physical Exam: General: no apparent distress. Alert. Eyes: No obvious scleral icterus. HEENT: No jugular venous distention or abnormal jugular venous pulsations. Cardiovascular: Normal intensity S1/S2. Regular. ICD noted, 2 out of 6 systolic murmur Respiratory: No rales or rhonchi Abdomen: Soft, nontender with no guarding or rebound tenderness. Musculoskeletal: No clubbing or cyanosis noted; 2+ lower extremity edema Skin: warm Neurologic: No gross focal deficits noted. Current Medications: Current Medications Sig/Penny Start time Last Medication Dose Route Stop Time Status Admin Acetaminophen 650 MG Q6P PRN 11/065 AC PO Albuterol Sulfate 2 PUF Q4P PRN 11/08 1700 AC 11/15 INH 2059 Albuterol Sulfate 3 ML EVERY 4 HRS/AWAKE 11/08 1999 AC 11/19 INH 1150 Aspirin 81 MG DAILY 11/07 09 AC 11/19 PO 0841 Atorvastatin Calcium 40 MG DAILY 11/07 09 AC 11/19 PO 0841 Benzonatate 0 .STK-MED ONE 11/18 2004 OH PO Benzonatate 100 MG TID PRN 11/06 2315 AC 11/18 PO 2002 Budesonide/ 2 PUF BID 11/06 2100 AC 11/19 Formoterol Fumarate INH 0836 Carvedilol 6.25 MG BID 11/06 2100 AC 11/19 PO 1135 Clopidogrel Bisulfate 75 MG DAILY 11/07 09 AC 11/19 PO 0842 Dobutamine HCl 250 MG Q7H 11/18 1500 AC 11/19 Dextrose/Water 250 ML IV 0852 Dobutamine HCl 250 MG Q4H 11/18 1430 CAN Dextrose/Water 250 ML IV Furosemide 60 MG BID 11/18 2100 AC 11/19 IV 1135 Furosemide 60 MG BID 11/17 2100 DC 11/18 PO 0850 Guaifenesin 600 MG Q12 11/11 1037 AC 11/19 PO 0842 Insulin Aspart 0 TIDAC/HS 11/08 2100 AC 11/19 SC 0807 Insulin Detemir 25 UNITS QAM 11/09 09 AC 11/19 SC 0807 Levothyroxine Sodium 0.15 MG DAILY AC 11/07 07 AC 11/19 PO 0519 Nitroglycerin 0.5 GM Q6P PRN 11/10 1300 AC TOP Omeprazole 40 MG DAILY AC 11/17 07 AC 11/19 PO 0519 Potassium Chloride 40 MEQ ONCE ONE 11/19 899 DC 11/19 PO 11/19 0901 1135 Prednisone 10 MG DAILY 11/19 899 DC 11/19 PO 11/19 0901 0842 Ramelteon 8 MG AT BEDTIME NEED.. 11/09 221 AC 11/18 PO 2002 Ranolazine 500 MG BID 11/06 2099 AC 11/19 PO 1135 Sertraline HCl 50 MG DAILY 11/07 0900 AC 11/19 PO 0842 Tamsulosin HCl 0.4 MG AT BEDTIME 11/06 2099 AC 11/18 PO 1954 Tiotropium [place] 1 PUF DAILY 11/07 09 AC 11/19 INH 0836 Results Last 48 Hrs of Labs/Mics: Laboratory Tests 11/19/17 0621: Anion Gap 7, Estimated GFR 39 L, BUN/Creatinine Ratio 28.2 H, Magnesium 1.8, CBC w Diff NO MAN DIFF REQ, RBC 3.62 L, MCV 102.2 H, MCH 34.4 H, MCHC 33.7, RDW 16.9 H, MPV 8.8, Gran % 86.8 H, Lymphocytes % 6.3 L, Monocytes % 6.8, Eosinophils % 0.1, Basophils % 0, Absolute Granulocytes 10.3 H, Absolute Lymphocytes 0.8 L, Absolute Monocytes 0.8 H, Absolute Eosinophils 0, Absolute Basophils 0 11/18/17 1020: Anion Gap 6, Estimated GFR 39 L, BUN/Creatinine Ratio 28.2 H Assessment/Plan Assessment/Plan Assessment: 1. Shortness of breath likely multifactorial 2. Ischemic cardiomyopathy with prior CABG/PCI 3. AICD in situ 4. Abdominal aortic aneurysm status post prior EVAR 5. Aortic stenosis; moderate 6. Small cell lung CA 7. Hypothyroidism 8. Not on ZULAY inhibitor per reoprt due to CKD with hyperkalemia 9. Acute on chronic systolic congestive heart failure 10. COPD/PATTI 11. Diabetes Recommendations: -continue current treatment regimen for the next 48 hours. -Continue IV dobutamine -Continue to monitor intakes, outputs, daily weights -Follow-up labs in the morning -Further plans tomorrow morning after we see how the patient does over the next 24 hours. Continue telemetry? Yes
[2017-11-19 14:28] VITALS: BP 152/72
[2017-11-19 22:41] VITALS: BP 106/68
[2017-11-20 02:00] VITALS: BP 108/68
[2017-11-20 06:05] VITALS: BP 110/62
[2017-11-20 08:27] LABS: ABSOLUTE BASOPHIL COUNT 0 /CUMM (0.0-0.2); ABSOLUTE EOSINOPHIL COUNT 0.1 /CUMM (0.0-0.7); ABSOLUTE GRANULOCYTE CT 9.4 /CUMM (1.4-6.5); ABSOLUTE LYMPH COUNT 0.7 /CUMM (1.2-3.4); ABSOLUTE MONOCYTE COUNT 0.9 /CUMM (0.10-0.60); BASOPHIL % 0.1 % (0.0-2.0); EOSINOPHIL % 0.8 % (0-5); GRANULOCYTE % 84.9 % (42.2-75.2); HEMATOCRIT 38.5 % (42-52); MEAN CORPUSCULAR HGB 34.2 PG (27.0-31.0); MEAN CORPUSCULAR HGB CONC 33.2 G/DL (33.0-37.0); MEAN CORPUSCULAR VOLUME 103.1 FL (80.0-94.0); MEAN PLATELET VOLUME 8.9 FL (7.4-10.4); PLATELET COUNT 100 /CUMM (130-400); RBC DISTRIBUTION WIDTH 16.5 % (11.5-14.5); RED BLOOD CELL CT 3.73 /CUMM (4.70-6.10); WHITE BLOOD CELL COUNT 11.1 /CUMM (4.8-10.8)
--- NOTE | 2017-11-20 08:40 | PN- Housestaff ---
JohnBrienconsuelo 11/20/17 0839: Subjective Follow-up For: CHF exacerbation Subjective: Overnight patient was in normal sinus rhythm heart rate ranged between 80-95 patient has no complaint of this morning. Patient is inquiring if he can go home, understands his diagnosis and prognosis. Explained to patient that he is currently at 33.7 on dobutamine. Patient has no complaint of today, denies chest pain, palpitations, shortness of breath, swelling. Review of Systems Constitutional: Denies: chills, diaphoresis, fever. Cardiovascular: Denies: chest pain, edema, orthopena. Respiratory: Denies: cough, short of breath. Gastrointestinal: Denies: abdominal pain, melena, bloody stool, changes in stool. Objective Last 24 Hrs of Vital Signs/I&O Vital Signs Date Time Temp Pulse Resp B/P B/P Pulse O2 O2 Flow FiO2 Mean Ox Delivery Rate 11/20 0942 82 118/64 11/20 0941 82 118/64 11/20 0836 97 Room Air Room Air 11/20 0738 76 110/62 11/20 0605 97.7 76 20 110/62 96 Room Air 11/20 0200 97.8 92 18 108/68 97 Room Air 11/19 2326 86 106/68 11/19 2241 97.8 86 20 106/68 93 / 2102 94 Room Air Room Air 11/19 2100 Room Air 11/19 2037 68 152/72 11/19 2036 68 152/72 11/19 2036 68 152/72 11/19 1617 68 152/72 11/19 1551 96 Room Air Room Air 11/19 1428 98.1 68 20 152/72 95 Room Air 11/19 1135 87 112/70 11/19 1135 87 112/70 Intake & Output 11/20 1600 02 0800 11/20 0000 Intake Total 600 480 Output Total 1350 555 Balance -750 -75 Intake, IV 200 100 Intake, Oral 400 380 Output, Urine 1350 555 Physical Exam General Appearance: Alert, Oriented X3, Cooperative Neck: Supple, No JVD Cardiovascular: Regular Rate, Normal S1, Normal S2 Lungs: Clear to Auscultation, Normal Air Movement Extremities: No Cyanosis, No Edema, Normal Pulses Assessment/Plan Assessment: 77-year-old male presented with chief complaints of gradually progressive shortness of breath. Past medical history- * Small Cell lung CA (last dose of radiation 3 months ago), * IDDM (dx 3months ago), * Ischemic cardiomyopathy with EF 20% s/p defibrillator placement (Mar 2017), * s/p carotid endarterectomy right side (1997), * CABG (1988), CAD with stents (), * h/o DVT (5 yrs ago), * COPD, * Hypothyroidism * Hypertension * BPH * Obstructive sleep apnea on nocturnal CPAP #CHF exacerbation with ischemic cardiomyopathy with ejection fraction of 20% status post AICD Mar 2017 -continue dobutamine drip at 5 for 48 hours -continue IV Lasix 60 MG bid for 48 hours -Monitor BEP -Patient's lower extremity swelling has come down. Advised continue Compression stockings. -Strict I's and O's -Daily weights -Leg elevation -Patient's aortic valve area has been improved from 0.6 to 2 cm after starting him on dobutamine which signifies that he does not have moderate/severe aortic stenosis. Results of echocardiogram was discussed with the patient. Patient should be on ZULAY inhibitors but given that his chronic kidney disease at this point we will hold a/ABSs. #COPD exacerbation -Completed prednisone taper -Pulmonology on board -Continue TRC nebulization Heart healthy diet DNR/DNI DVT prophylaxis heparin Problem List: 1. CHF exacerbation Pain Ratin Pain Location: n/a Pain Goal: Remain pain free Pain Plan: tylenol Tomorrow's Labs & Rationales: evi Salas MD,Khris 11/20/17 1308: Attending MD Review Statement Attending Statement Attending MD Statement: examined this patient, discuss w/resident/PA/HABILITATION SPECIALIST, agreed w/resident/PA/HABILITATION SPECIALIST, reviewed EMR data (avail) Attending Assessment/Plan: Patient seen and examined at bedside. Agree with resident assessment and plan. Patient feels well with no complaints. No tele events. Good diruesis net negative 825mL yesterday. Renal function stable. Plan - Continue on telemetry - COntinue Dobutamine and diuresis - Monitor electrolytes - Follow cardiology recommendations - Continue home medications - DVT PPx
[2017-11-20 12:00] VITALS: BP 110/93
--- NOTE | 2017-11-20 12:44 | PN- Cardiology ---
Subjective Subjective: Patient is lying comfortably in bed watching TV. No new cardiac issues. Somewhat despondent about being still stuck in the hospital. Objective Vital Signs and I&Os Vital Signs Date Time Temp Pulse Resp B/P B/P Pulse O2 O2 Flow FiO2 Mean Ox Delivery Rate 11/20 1200 97.9 92 18 110/93 93 Room Air 11/20 0942 82 118/64 / 0941 82 118/64 11/20 0836 97 Room Air Room Air 11/20 0800 93 Room Air 11/20 0738 76 110/62 11/20 0605 97.7 76 20 110/62 96 Room Air 11/20 0200 97.8 92 18 108/68 97 Room Air 11/19 2326 86 106/68 11/19 2241 97.8 86 20 106/68 93 11/19 2102 94 Room Air Room Air 11/19 2100 Room Air 11/19 2037 68 152/72 11/19 2036 68 152/72 11/19 2036 68 152/72 11/19 1617 68 152/72 11/19 1551 96 Room Air Room Air 11/19 1428 98.1 68 20 152/72 95 Room Air Intake & Output 11/20 1600 11/20 0800 11/20 0000 11/19 1600 11/19 0800 11/19 0000 Intake Total 600 480 930 519.6 256.8 Output Total 3133 067 3502 1000 1400 Balance -750 -75 -270 -480.4 -1143.2 Intake, IV 200 100 280 269.6 156.8 Intake, Oral 400 380 650 250 100 Output, Urine 8901 788 6600 1000 1400 Patient 233 lb Weight Weight Bed scale Measurement Method Physical Exam: General: no apparent distress. Alert. Eyes: No obvious scleral icterus. HEENT: No jugular venous distention or abnormal jugular venous pulsations. Cardiovascular: Normal intensity S1/S2. Regular. ICD noted, 2 out of 6 systolic murmur Respiratory: No rales or rhonchi Abdomen: Soft, nontender with no guarding or rebound tenderness. Musculoskeletal: No clubbing or cyanosis noted; 2+ lower extremity edema Skin: warm Neurologic: No gross focal deficits noted. Current Medications: Current Medications Sig/Penny Start time Last Medication Dose Route Stop Time Status Admin Acetaminophen 650 MG Q6P PRN 11/06 2045 AC PO Albuterol Sulfate 2 PUF Q4P PRN 11/08 1700 AC 11/15 INH 2059 Albuterol Sulfate 3 ML EVERY 4 HRS/AWAKE 11/08 1999 AC 11/20 INH 1143 Aspirin 81 MG DAILY 11/07 09 AC 11/20 PO 0942 Atorvastatin Calcium 40 MG DAILY 11/07 0900 AC 11/20 PO 0942 Benzonatate 100 MG TID PRN 11/06 2315 AC 11/19 PO 2036 Budesonide/ 2 PUF BID 11/06 2100 AC 11/20 Formoterol Fumarate INH 0937 Carvedilol 6.25 MG BID 11/06 2100 AC 11/20 PO 0942 Clopidogrel Bisulfate 75 MG DAILY 11/07 09 AC 11/20 PO 0941 Dobutamine HCl 250 MG Q7H 11/18 1500 AC 11/20 Dextrose/Water 250 ML IV 0738 Furosemide 60 MG BID 11/18 2100 AC 11/20 IV 0937 Guaifenesin 600 MG Q12 11/11 1037 AC 11/20 PO 0941 Insulin Aspart 0 TIDAC/HS 11/08 2100 AC 11/20 SC 1228 Insulin Detemir 25 UNITS QAM 11/09 0900 AC 11/20 SC 0756 Levothyroxine Sodium 0.15 MG DAILY AC 11/07 0700 AC 11/20 PO 0621 Magnesium Oxide 400 MG ONE ONE 11/20 1100 DC 11/20 PO 11/20 1101 1124 Nitroglycerin 0.5 GM Q6P PRN 11/10 1300 AC TOP Omeprazole 40 MG DAILY AC 11/17 0700 AC 11/20 PO 0621 Potassium Chloride 40 MEQ ONCE ONE 11/20 1100 DC 11/20 PO 11/20 1101 1123 Ramelteon 8 MG AT BEDTIME NEED.. 11/09 2215 AC 11/18 PO 2002 Ranolazine 500 MG BID 11/06 2100 AC 11/20 PO 0941 Sertraline HCl 50 MG DAILY 11/07 09 AC 11/20 PO 40 Tamsulosin HCl 0.4 MG AT BEDTIME 11/06 2099 AC 11/19 PO 203 Tiotropium [place] 1 PUF DAILY 11/07 0900 AC 11/20 INH 0939 Results Last 48 Hrs of Labs/Mics: Laboratory Tests 11/20/17 0724: Anion Gap 8, Estimated GFR 42 L, BUN/Creatinine Ratio 27.5 H, Magnesium 1.7, CBC w Diff NO MAN DIFF REQ, RBC 3.73 L, MCV 103.1 H, MCH 34.2 H, MCHC 33.2, RDW 16.5 H, MPV 8.9, Gran % 84.9 H, Lymphocytes % 6.2 L, Monocytes % 8.0, Eosinophils % 0.8, Basophils % 0.1, Absolute Granulocytes 9.4 H, Absolute Lymphocytes 0.7 L, Absolute Monocytes 0.9 H, Absolute Eosinophils 0.1, Absolute Basophils 0 11/19/17 0621: Anion Gap 7, Estimated GFR 39 L, BUN/Creatinine Ratio 28.2 H, Magnesium 1.8, CBC w Diff NO MAN DIFF REQ, RBC 3.62 L, MCV 102.2 H, MCH 34.4 H, MCHC 33.7, RDW 16.9 H, MPV 8.8, Gran % 86.8 H, Lymphocytes % 6.3 L, Monocytes % 6.8, Eosinophils % 0.1, Basophils % 0, Absolute Granulocytes 10.3 H, Absolute Lymphocytes 0.8 L, Absolute Monocytes 0.8 H, Absolute Eosinophils 0, Absolute Basophils 0 Assessment/Plan Assessment/Plan Assessment: 1. Shortness of breath likely multifactorial 2. Ischemic cardiomyopathy with prior CABG/PCI 3. AICD in situ 4. Abdominal aortic aneurysm status post prior EVAR 5. Aortic stenosis; moderate 6. Small cell lung CA 7. Hypothyroidism 8. Not on ZULAY inhibitor per reoprt due to CKD with hyperkalemia 9. Acute on chronic systolic congestive heart failure 10. COPD/PATTI 11. Diabetes Recommendations: -continue current treatment regimen for the next 48 hours. -Continue IV dobutamine -Continue to monitor intakes, outputs, daily weights; the patient is about 3400 cc negative on his fluid balance since the reinstitution of dobutamine on 11/18 -Follow-up labs in the morning -Further plans tomorrow morning after we see how the patient does over the next 24 hours. Continue telemetry? Yes
[2017-11-20 14:34] VITALS: BP 116/54
[2017-11-20 20:53] VITALS: BP 122/76
[2017-11-20 23:54] VITALS: BP 112/62
[2017-11-21 03:58] VITALS: BP 112/64
--- NOTE | 2017-11-21 08:29 | PN- Housestaff ---
William LUND,Jennifer 11/21/17 0829: Subjective Follow-up For: CHF exacerbation Tele-Events Since Last Visit: No overnight events Subjective: Patient was seen and examined, afebrile with stable vital signs, still on dobutamine drip and IV Lasix 60 mg twice daily, negative fluid balance of around 2 L in the last 48 hours, Patient had an episode of shortness of breath, cough and chest congestion last night which improved after taking Robitussin. In the morning he was still complaining of mild shortness of breath which he said has always had Review of Systems Constitutional: Reports: see HPI. Objective Last 24 Hrs of Vital Signs/I&O Vital Signs Date Time Temp Pulse Resp B/P B/P Pulse O2 O2 Flow FiO2 Mean Ox Delivery Rate 11/21 0856 72 110/64 11/21 0855 72 110/64 11/21 0852 94 Room Air Room Air 11/21 0649 72 110/64 11/21 0358 97.7 70 20 112/64 93 Room Air 11/21 0000 Room Air Room Air 11/20 2354 97.7 76 20 112/62 94 Room Air 11/20 2053 97.5 86 20 122/76 92 09/02 2014 90 09/02 1951 95 Room Air 11/20 1554 93 Room Air 11/20 1519 97.8 76 18 116/54 09 1516 93 118/64 02 1434 97.8 76 20 116/54 94 Room Air / 1200 97.9 92 18 110/93 93 Room Air Intake & Output 11/21 1600 11/21 0800 11/21 0000 Intake Total 419.6 167 Output Total 700 725 Balance -280.4 -558 Intake, IV 269.6 67 Intake, Oral 150 100 Output, Urine 700 725 Patient 231 lb Weight Physical Exam General Appearance: Alert, Oriented X3, Cooperative, No Acute Distress HEENT: Atraumatic, PERRLA, EOMI, Mucous Membr. moist/pink Neck: Supple, No JVD Cardiovascular: Normal S1, Normal S2 Abdomen: Normal Bowel Sounds, Soft Extremities: 2+ PITTING EDEMA, WEARING ELSTIC STOCKING Assessment/Plan Assessment: 77-year-old male presented with chief complaints of gradually progressive shortness of breath. Past medical history- * Small Cell lung CA (last dose of radiation 3 months ago), * IDDM (dx 3months ago), * Ischemic cardiomyopathy with EF 20% s/p defibrillator placement (Mar 2017), * s/p carotid endarterectomy right side (1997), * CABG (1988), CAD with stents (), * h/o DVT (5 yrs ago), * COPD, * Hypothyroidism * Hypertension * BPH * Obstructive sleep apnea on nocturnal CPAP #CHF exacerbation with ischemic cardiomyopathy with ejection fraction of 20% status post AICD Mar 2017 -DC dobutamine drip as per cardiology recommendation -continue IV Lasix 60 MG bid for 48 hours -Monitor BEP -Patient's lower extremity swelling has come down. Advised continue Compression stockings. -Strict I's and O's -Daily weights -Leg elevation -Patient's aortic valve area has been improved from 0.6 to 2 cm after starting him on dobutamine which signifies that he does not have moderate/severe aortic stenosis. Results of echocardiogram was discussed with the patient. Patient should be on ZULAY inhibitors but given that his chronic kidney disease at this point we will hold a/ABSs. #COPD exacerbation -Completed prednisone taper -Pulmonology on board -Continue TRC nebulization Heart healthy diet DNR/DNI DVT prophylaxis heparin Problem List: 1. CHF exacerbation Pain Ratin Pain Location: N/A Pain Goal: Remain pain free Pain Plan: PATHWAY Tomorrow's Labs & Rationales: CBC BEP Khris Salas MD 11/21/17 1419: Attending MD Review Statement Attending Statement Attending MD Statement: examined this patient, discuss w/resident/PA/WAXER, agreed w/resident/PA/WAXER, reviewed EMR data (avail) Attending Assessment/Plan: Patient seen and examined at bedside. Agree with resident assessment and plan. Patient feels well with no complaints. No tele events. Good diruesis net negative 1700mL yesterday. Renal function stable. Plan - Continue on telemetry - COntinue Dobutamine and diuresis - Monitor electrolytes - Follow cardiology recommendations - Continue home medications - DVT PPx
--- NOTE | 2017-11-21 11:41 | PN- Cardiology ---
Subjective Subjective: Clinically stable. Occasional ectopy noted on desk monitor but no other significant arrhythmias detected. Respiratory status about the same but slightly better. Lower extremity edema improving. The patient is diuresed about 5 L over the last 72 hours. Objective Vital Signs and I&Os Vital Signs Date Time Temp Pulse Resp B/P B/P Pulse O2 O2 Flow FiO2 Mean Ox Delivery Rate 11/21 0856 72 110/64 / 0855 72 110/64 11/21 0852 94 Room Air Room Air 11/21 0800 Room Air 11/21 0649 72 110/64 11/21 0358 97.7 70 20 112/64 93 Room Air 11/21 0000 Room Air Room Air 11/20 2354 97.7 76 20 112/62 94 Room Air 11/20 2053 97.5 86 20 122/76 92 11/20 2014 90 11/20 1951 95 Room Air 11/20 1554 93 Room Air 11/20 1519 97.8 76 18 116/54 11/20 1516 93 118/64 11/20 1434 97.8 76 20 116/54 94 Room Air 11/20 1200 97.9 92 18 110/93 93 Room Air Intake & Output 11/21 1600 11/21 0800 / 0000 09/ 1600 11/20 0800 11/20 0000 Intake Total 419.6 167 440 600 480 Output Total 700 176 120 2550 555 Balance -280.4 -558 -410 -750 -75 Intake, IV 269.6 67 200 200 100 Intake, Oral 150 100 240 400 380 Number 0 Bowel Movements Output, Urine 700 557 636 8250 555 Patient 231 lb Weight Physical Exam: General: no apparent distress. Alert. Eyes: No obvious scleral icterus. HEENT: No jugular venous distention or abnormal jugular venous pulsations. Cardiovascular: Normal intensity S1/S2. Regular. ICD noted, 2/6 systolic murmur Respiratory: No rales or rhonchi Abdomen: Soft, nontender with no guarding or rebound tenderness. Musculoskeletal: No clubbing or cyanosis noted; 1+ lower extremity edema Skin: warm Neurologic: No gross focal deficits noted. Current Medications: Current Medications Sig/Penny Start time Last Medication Dose Route Stop Time Status Admin Acetaminophen 650 MG Q6P PRN 11/06 2045 AC PO Albuterol Sulfate 2 PUF Q4P PRN 11/08 1700 AC 11/15 INH 2058 Albuterol Sulfate 3 ML EVERY 4 HRS/AWAKE 11/08 1999 AC 11/21 INH 0852 Aspirin 81 MG DAILY 11/07 899 AC 11/21 PO 0855 Atorvastatin Calcium 40 MG DAILY 11/07 899 AC 11/21 PO 0855 Benzonatate 0 .STK-MED ONE 11/20 2022 DC PO Benzonatate 100 MG TID PRN 11/06 2315 AC 11/20 PO 2020 Budesonide/ 2 PUF BID 11/06 2100 AC 11/21 Formoterol Fumarate INH 09 Carvedilol 6.25 MG BID 11/06 2100 AC 11/21 PO 0855 Clopidogrel Bisulfate 75 MG DAILY 11/07 899 AC 11/21 PO 0855 Dobutamine HCl 250 MG Q7H 11/18 1500 AC 11/21 Dextrose/Water 250 ML IV 0649 Furosemide 60 MG BID 11/18 2100 AC 11/21 IV 0856 Guaifenesin 600 MG Q12 11/11 1037 AC 11/21 PO 0855 Guaifenesin/ 0 .STK-MED ONE 11/20 2212 DC Dextromethorphan PO Guaifenesin/ 10 ML ONCE ONE 11/20 2200 DC 11/20 Dextromethorphan PO 11/20 2201 2210 Insulin Aspart 0 TIDAC/HS 11/08 2100 AC 11/21 SC 0855 Insulin Detemir 25 UNITS QAM 11/09 0900 AC 11/21 SC 0901 Levothyroxine Sodium 0.15 MG DAILY AC 11/07 07 AC 11/21 PO 0653 Nitroglycerin 0.5 GM Q6P PRN 11/10 1300 AC TOP Omeprazole 40 MG DAILY AC 11/17 07 AC 11/21 PO 0653 Ramelteon 8 MG AT BEDTIME NEED.. 11/09 2215 AC 11/18 PO 2002 Ranolazine 500 MG BID 11/06 2099 AC 11/21 PO 0856 Sertraline HCl 50 MG DAILY 11/07 899 AC 11/21 PO 0855 Tamsulosin HCl 0.4 MG AT BEDTIME 11/06 2099 AC 11/20 PO 2014 Tiotropium [place] 1 PUF DAILY 11/07 09 AC 11/21 INH 1105 Results Last 48 Hrs of Labs/Mics: Laboratory Tests 11/21/17 0625: Anion Gap 9, Estimated GFR 39 L, BUN/Creatinine Ratio 28.8 H, Magnesium 1.8 11/20/17 0724: Anion Gap 8, Estimated GFR 42 L, BUN/Creatinine Ratio 27.5 H, Magnesium 1.7, CBC w Diff NO MAN DIFF REQ, RBC 3.73 L, MCV 103.1 H, MCH 34.2 H, MCHC 33.2, RDW 16.5 H, MPV 8.9, Gran % 84.9 H, Lymphocytes % 6.2 L, Monocytes % 8.0, Eosinophils % 0.8, Basophils % 0.1, Absolute Granulocytes 9.4 H, Absolute Lymphocytes 0.7 L, Absolute Monocytes 0.9 H, Absolute Eosinophils 0.1, Absolute Basophils 0 Assessment/Plan Assessment/Plan Assessment: 1. Shortness of breath likely multifactorial 2. Ischemic cardiomyopathy with prior CABG/PCI 3. AICD in situ 4. Abdominal aortic aneurysm status post prior EVAR 5. Aortic stenosis; moderate 6. Small cell lung CA 7. Hypothyroidism 8. Not on ZULAY inhibitor per reoprt due to CKD with hyperkalemia 9. Acute on chronic systolic congestive heart failure 10. COPD/PATTI 11. Diabetes 12. Mild hyponatremia-sodium 133 today; renal function otherwise about the same with creatinine 1.7 Recommendations: -continue current treatment regimen -The patient has been on IV dobutamine over the last 72+ hours. Discontinue dobutamine today. -Continue to monitor intakes, outputs, daily weights; the patient is about 5000 cc negative on his fluid balance since the reinstitution of dobutamine on 11/18 -Continue IV Lasix -Follow-up labs in the morning -Further plans tomorrow morning after we see how the patient does over the next 24 hours. Continue telemetry? Yes
[2017-11-21 14:16] VITALS: BP 128/50
[2017-11-21 19:30] VITALS: BP 104/60
[2017-11-21 23:09] VITALS: BP 92/60
[2017-11-22 02:59] VITALS: BP 116/64
[2017-11-22 06:46] VITALS: BP 100/60
--- NOTE | 2017-11-22 07:11 | PN- Housestaff ---
Tre LUND,Bianka 11/22/17 0710: Subjective Follow-up For: Congestive heart failure Complaints: no complaints Tele-Events Since Last Visit: Paced rhythm, PVCs Subjective: Patient seen and examined at bedside. He was lying in his bed comfortably. No acute distress. Had a good sleep. Denies chest pain, shortness of breath, nausea, vomiting, abdominal pain Review of Systems Constitutional: Reports: no symptoms. Objective Last 24 Hrs of Vital Signs/I&O Vital Signs Date Time Temp Pulse Resp B/P B/P Pulse O2 O2 Flow FiO2 Mean Ox Delivery Rate 11/22 09 96/44 11/22 0905 82 96/44 11/22 0832 93 Room Air 11/22 0646 97.8 78 18 100/60 93 Room Air 11/22 0259 97.9 74 20 116/64 95 Room Air 11/21 2309 97.8 75 20 92/60 94 Room Air 11/21 2200 Room Air 11/21 1956 76 104/60 11/21 1956 76 104/60 11/21 1955 76 104/60 11/21 1930 97.7 76 20 104/60 96 Room Air 11/21 1831 96 Room Air Room Air 11/21 1416 97.8 77 18 128/50 94 Room Air Intake & Output 11/22 1600 11/22 0800 11/22 0000 Intake Total 240 480 Output Total 350 1325 Balance -110 -845 Intake, Oral 240 480 Output, Urine 350 1325 Patient 220 lb Weight Physical Exam General Appearance: Alert, Oriented X3, Cooperative, No Acute Distress Cardiovascular: Normal S1, Normal S2, systolic murmur Lungs: basal cackles Abdomen: Soft, No Tenderness, No Hepatospenomegaly Extremities: no pe Current Medications: Current Medications Sig/Penny Start time Last Medication Dose Route Stop Time Status Admin Acetaminophen 650 MG Q6P PRN 11/06 2044 AC PO Albuterol Sulfate 2 PUF Q4P PRN 11/08 170 AC 11/15 INH 2058 Albuterol Sulfate 3 ML EVERY 4 HRS/AWAKE 11/08 1999 AC 11/22 INH 08 Aspirin 81 MG DAILY 11/07 899 AC 11/22 PO 0904 Atorvastatin Calcium 40 MG DAILY 11/07 899 AC 11/22 PO 0905 Benzonatate 100 MG TID PRN 11/06 2315 AC 11/22 PO 0555 Budesonide/ 2 PUF BID 11/06 2099 AC 11/22 Formoterol Fumarate INH 903 Carvedilol 6.25 MG BID 11/06 2099 AC 11/22 PO 09 Clopidogrel Bisulfate 75 MG DAILY 11/07 09 AC 11/22 PO 09 Dobutamine HCl 250 MG Q7H 11/18 1500 DC 11/21 Dextrose/Water 250 ML IV 0649 Furosemide 60 MG 7:30 AM, & 4:30 PM 11/22 1630 AC PO Furosemide 60 MG BID 11/18 2100 DC 11/21 IV 1955 Guaifenesin 0 .STK-MED ONE 11/21 2302 DC PO Guaifenesin 600 MG Q12 11/11 1037 AC 11/22 PO 0905 Guaifenesin/ 0 .STK-MED ONE 11/21 2306 DC Dextromethorphan PO Guaifenesin/ 10 ML DAILY NEEDED 11/21 2300 AC 11/21 Dextromethorphan PO 2305 Guaifenesin/ 10 ML ONCE ONE 11/21 1145 DC 11/21 Dextromethorphan PO 11/21 1146 1206 Insulin Aspart 0 TIDAC/HS 11/08 2100 AC 11/21 SC 2104 Insulin Detemir 25 UNITS QAM 11/09 899 AC 11/22 SC 0911 Levothyroxine Sodium 0.15 MG DAILY AC 11/07 07 AC 11/22 PO 0555 Nitroglycerin 0.5 GM Q6P PRN 11/10 1300 AC TOP Omeprazole 40 MG DAILY AC 11/17 07 AC 11/22 PO 0555 Ramelteon 8 MG AT BEDTIME NEED.. 11/09 2214 AC 11/21 PO 1955 Ranolazine 500 MG BID 11/06 2099 AC 11/22 PO 904 Sertraline HCl 50 MG DAILY 11/07 899 AC 11/22 PO 904 Tamsulosin HCl 0.4 MG AT BEDTIME 11/06 2099 AC 11/21 PO 1954 Tiotropium [place] 1 PUF DAILY 11/07 09 AC 11/22 INH 903 Assessment/Plan Assessment: Patient is a 77-year-old male presented with chief complaints of gradually progressive shortness of breath. Past medical history- * Small Cell lung CA (last dose of radiation 3 months ago), * IDDM (dx 3months ago), * Ischemic cardiomyopathy with EF 20% s/p defibrillator placement (Mar 2017), * s/p carotid endarterectomy right side (1997), * CABG (1988), CAD with stents (), * h/o DVT (5 yrs ago), * COPD, * Hypothyroidism * Hypertension * BPH * Obstructive sleep apnea on nocturnal CPAP Assessment and plan CHF exacerbation with ischemic cardiomyopathy with ejection fraction of 20% status post AICD Mar 2017 Patient is treated with IV Lasix. Patient is on IV 60 Lasix twice daily we will change to p.o. 60 twice daily today. We will see how the patient is able to tolerate and plan for possible discharge tomorrow. Discussed with cardiology. Patient has negative fluid balance with improved pedal edema. Compression stockings. Strict I's and O's Daily weights Leg elevation Patient's aortic valve area has been improved from 0.6 to 2 cm after starting him on dobutamine which signifies that he does not have moderate/severe aortic stenosis. Patient's output improved while on dobutamine. He is now off dobutamine. We will send him home with the current medications and plan for starting him on Entresto as outpatient. Problem List: 1. CHF exacerbation Pain Ratin Pain Location: None Pain Goal: Remain pain free Pain Plan: Tylenol Tomorrow's Labs & Rationales: Dionne WATKINS, BEAN Salas MD,Lauren 11/22/17 1018: Attending MD Review Statement Attending Statement Attending MD Statement: examined this patient, discuss w/resident/PA/SALES TEAM MANAGER, agreed w/resident/PA/SALES TEAM MANAGER, reviewed EMR data (avail) Attending Assessment/Plan: Patient seen and examined at bedside. Agree with resident assessment and plan. Patient feels well with no complaints. No tele events. Good diruesis net negative 1300mL yesterday. Renal function stable. Plan - Continue on telemetry - Discontinue Dobutamine - Switch to PO Lasix - Monitor electrolytes - Follow cardiology recommendations - Continue home medications - DVT PPx - Anticipated discharge tomorrow
[2017-11-22 07:53] LABS: ABSOLUTE BASOPHIL COUNT 0 /CUMM (0.0-0.2); ABSOLUTE EOSINOPHIL COUNT 0 /CUMM (0.0-0.7); ABSOLUTE LYMPH COUNT 0.5 /CUMM (1.2-3.4); ABSOLUTE MONOCYTE COUNT 0.8 /CUMM (0.10-0.60); BASOPHIL % 0 % (0.0-2.0); EOSINOPHIL % 0.4 % (0-5); HEMATOCRIT 37.2 % (42-52); MEAN CORPUSCULAR HGB 34.4 PG (27.0-31.0); MEAN CORPUSCULAR HGB CONC 33.7 G/DL (33.0-37.0); MEAN CORPUSCULAR VOLUME 102.2 FL (80.0-94.0); MEAN PLATELET VOLUME 8.7 FL (7.4-10.4); PLATELET COUNT 95 /CUMM (130-400); RBC DISTRIBUTION WIDTH 15.8 % (11.5-14.5); RED BLOOD CELL CT 3.64 /CUMM (4.70-6.10); WHITE BLOOD CELL COUNT 9.4 /CUMM (4.8-10.8)
[2017-11-22 08:56] LABS: GRANULOCYTE % 85.6 % (42.2-75.2)
--- NOTE | 2017-11-22 09:06 | Discharge Summary ---
Visit Information Visit Dates Admission Date: 11/07/17 Discharge Date: 11/23/17 Hospital Course Course Attending Physician: Preston LUND,Zoya Villa Primary Care Physician: Clyde LUND,[facility] Hospital Course: 77 year old male with extensive PMH s/p CABG (1988), CAD with stents (), h/ o DVT (5 yrs ago), IDDM (dx 3months ago), COPD, Small Cell lung CA (last dose of radiation 3 months ago), ischemic cardiomyopathy with EF 20% s/p defibrillator placement (Mar 2017), s/p carotid endarterectomy right side (1997), hypothryroid , HTN, BPH, PATTI on CPAP at [facility] presenting with two day history of progressive SOB. He states his symptoms developed suddenly. Patient reports associated dry cough but denies fever, chills, n/v/d, chest pain, dizziness. He states he becomes severely SOB ambulating from kitchen to living room (approx 25ft). He is unable to climb stairs without getting on his hands and knees and taking breaks. He denies recent illness, travel, or sick contacts. Patient also reports 'itching' to his extremities and scabs from scratching. Patient was last admitted in July 2017 for COPD exacerbation. Shortness of breath COPD with CHF exacerbation COPD-patient treated with azithromycin and tapering dose of prednisone. Patient was initially admitted to general CHF-patient was on 20 of Lasix p.o. which was increased to 80 IV twice daily. Given his CKD his Lasix was reduced to 60 IV twice daily. During the hospital course patient had an echocardiogram done which showed significant aortic stenosis. Given that patient had a low ejection fraction of 25% he was started on IV dobutamine drip and subsequent limited echo showed an improvement of his aortic valve area to 2 cm2. Since patient condition clinically improved with the dobutamine drip he may be a candidate for entrance to as outpatient. Patient is not on is a nurse in view of chronic kidney disease. Upon discharge patient Lasix IV 60 can be switched to 60 p.o. twice daily. Cardiology agrees with the plan. Patient was initially admitted to [facility] for COPD exacerbation and given his heart failure exacerbation during the hospital course associated with chest pain patient was transferred to telemetry. Patient's ICD was interrogated which showed no events. CKD stage III His renal function was monitored while he was on Lasix. Patient will follow with Dr. Patel as outpatient. Thrombocytopenia Patient was not started on any heparin products. His thrombocytopenia can be chronic/IDP. Patient advised to follow-up with his primary care physician. Diabetes mellitus On Levemir and sliding scale insulin. She was well controlled. Allergies: Coded Allergies: NO KNOWN ALLERGIES (NONE 05/10/17) Significant Procedures: Chest CT - Small left pleural effusion and atelectasis of the left more than right lung bases. - No dense consolidation or mass. Background changes of emphysema. - Cardiomegaly. 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 Echocardiogram Severe global hypokinesis of the LV, with LVEF estimated at 25%. Pacer lead is visible in the RV. Moderately enlarged LA. Mild-moderate central mitral regurgitation. Sclerotic aortic leaflets, with probably moderate aortic stenosis ( discordant CAITLYN and mean gradient), and mild aortic regurgitation. Mild tricuspid regurgitation with RVSP estimated at 35 mmHg. Trace pulmonic regurgitation. Chest x-ray 1. There has been interval decrease in the left-sided pleural effusion compared to the prior chest x-ray. There may be underlying consolidation. Limited echo November 15 Limited study. Moderate to severely reduced left ventricular systolic function. Moderate Aortic stenosis. 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 Medications at Discharge Discharge Medications: Stop taking the following medications: Levothyroxine Sodium (Levothyroxine Sodium) 100 MCG TABLET ORAL DAILY Qty = 90 Furosemide (Lasix) 20 MG TABLET ORAL DAILY Qty = 30 Levothyroxine Sodium (Levothyroxine Sodium) 25 MCG TABLET ORAL DAILY Qty = 15 Prednisone (Prednisone) 10 MG TABLET ORAL DAILY Continue taking these medications: Aspirin (Aspirin*) 81 MG TAB.CHEW 1 Tablet ORAL DAILY Qty = 30 Comments: Last Taken: 11/23/17 Time: 8:00 AM Atorvastatin Calcium (Lipitor) 40 MG TABLET 1 Tablet ORAL DAILY Qty = 30 Comments: Last Taken: 11/23/17 Time: 8:00 AM Ranolazine (Ranexa) 500 MG TAB.ER.12H 1 Tablet ORAL TWICE DAILY Qty = 30 Comments: Last Taken: 11/22/17 Time: 8:30 PM Last Taken:07/22/17 Time: 8:16 AM Clopidogrel Bisulfate (Clopidogrel) 75 MG TABLET 1 Tablet ORAL DAILY Qty = 90 Comments: Last Taken: 11/23/17 Time: 8:00 AM Acetaminophen (Acetaminophen) 325 MG CAPSULE 1 Capsule ORAL as needed for PAIN Comments: Last Taken: 11/23/17 Time: 11:30 AM 650MG GIVEN AT THIS TIME Albuterol Sulfate (Proair Hfa) 90 MCG HFA.AER.AD 2 Puff Inhale through mouth Every 4 hours Qty = 1 Comments: Last Taken: 11/15/17 Time: 9:00 PM Tamsulosin HCl (Flomax) 0.4 MG CAP.ER.24H 1 Capsule ORAL TAKE AT BEDTIME Qty = 30 Instructions: Please take at bed time to avoid low blood pressure during the day. Comments: Last Taken: 11/22/17 Time: 8:30 PM Tiotropium [place] (Spiriva) 18 MCG CAP.W.DEV 1 Capsule Inhale through mouth DAILY Qty = 30 Comments: Last Taken: 11/23/17 Time: 8:00 AM Budesonide/Formoterol Fumarate (Symbicort 160-4.5 Mcg Inhaler) 160 MCG-4.5 MCG/ ACTUATION HFA.AER.AD 2 Puff Inhale through mouth TWICE DAILY Qty = 10 Comments: Last Taken: 11/23/17 Time: 8:00 AM Nitroglycerin (Nitrostat) 0.4 MG TAB.SUBL 1 Tablet SUBLINGUAL As Directed as needed for CHEST PAIN Instructions: 1st sign of attack; may repeat every 5 minutes until relief; if pain persists after 3 tablets in 15 minutes, prompt medical att Comments: NOT GIVEN THIS ADMISSION Carvedilol (Carvedilol) 6.25 MG TABLET 1 Tablet ORAL TWICE DAILY Comments: Last Taken: 11/22/17 Time: 8:30 PM Omeprazole (Omeprazole) 40 MG CAPSULE.DR 1 Capsule ORAL DAILY Qty = 30 Comments: Last Taken: 11/23/17 Time: 5:30 AM Sertraline HCl (Sertraline HCl) 50 MG TABLET 1 Tablet ORAL DAILY Qty = 30 Comments: Last Taken: 11/23/17 Time: 8:00 AM Insulin Aspart, Recombinant (Novolog Flexpen) 100 UNIT/ML INSULN.PEN 0 SC SEE INSTRUCTIONS Qty = 30 Instructions: PLEASE check your blood sugar 3 times daily before meals and at bedtime and . FOLLOW 80 - 150 MG/DL 9 UNITS 151- 200 MG/DL 11 UNITS 201- 250 MG/DL 13 UNITS 251- 300 MG/DL 15 UNITS 301- 350 MG/DL 17 UNITS 351 - 400MG/DL 19 UNITS >400 MG/DL 20 UNITS AND CALL YOUR DR. Comments: Last Taken: 11/23/17 Time: 12:00 PM Insulin Detemir (Levemir) 100 UNIT/ML VIAL 25 Units SC Every Morning Comments: Last Taken: 11/23/17 Time: 9:30 AM Empagliflozin (Jardiance) 10 MG TABLET 1 Tablet ORAL DAILY Qty = 30 Comments: NOT GIVEN IN HOSPITAL Furosemide (Lasix) 20 MG TABLET 3 Tablet ORAL TWICE DAILY Qty = 60 Instructions: . Comments: Last Taken: 11/22/17 Time: 5:30 PM Levothyroxine Sodium (Levothyroxine Sodium) 100 MCG TABLET 1.5 Tablet ORAL DAILY Comments: Last Taken: 11/23/17 Time: 5:30 AM Copies To: Gagan LUND,Bruce Clemens; Clyde LUND,Sayra
--- NOTE | 2017-11-22 09:12 | PN- Cardiology ---
Subjective Subjective: Patient feels well. He is anxious to be discharged. No chest pain or shortness of breath. He diuresed 1300 cc yesterday Review of Systems: Eyes no blurred or double vision Ears no deafness or ringing Nose and throat no recurrent sinusitis Lungs per history of present illness Heart per history of present illness Abdomen no nausea vomiting Musculoskeletal occasional muscle and joint pains Psych no anxiety or depression Neuro without recurrent headache or seizures Endocrine no heat or cold intolerance Objective Vital Signs and I&Os Vital Signs Date Time Temp Pulse Resp B/P B/P Pulse O2 O2 Flow FiO2 Mean Ox Delivery Rate 11/22 0905 /11/22 0905 82 96/11/22 0832 93 Room Air 11/22 0646 97.8 78 18 100/60 93 Room Air 11/22 0259 97.9 74 20 116/64 95 Room Air 11/21 2309 97.8 75 20 92/60 94 Room Air 11/21 2200 Room Air 11/21 195 76 104/60 11/21 1956 76 104/60 11/21 1955 76 104/60 11/21 1930 97.7 76 20 104/60 96 Room Air 11/21 1831 96 Room Air Room Air 11/21 1416 97.8 77 18 128/50 94 Room Air Intake & Output 11/22 1600 11/22 0800 11/22 0000 11/21 1600 11/21 0800 11/21 0000 Intake Total 240 480 700 419.6 167 Output Total 350 1325 900 700 725 Balance -110 -845 -200 -280.4 -558 Intake, IV 200 269.6 67 Intake, Oral 240 480 500 150 100 Output, Urine 350 1325 900 700 725 Patient 220 lb 231 lb Weight Physical Exam: Patient is a well-developed well-nourished male appearing in no acute distress HEENT is unremarkable Neck is supple there is no JVD Lungs are clear Heart regular rhythm S1 and S2 are normal no gallops or rubs 2/6 GLADYS RUSB Abdomen bowel sounds positive Extremities trace edema Current Medications: Current Medications Sig/Penny Start time Last Medication Dose Route Stop Time Status Admin Acetaminophen 650 MG Q6P PRN 11/06 2044 AC PO Albuterol Sulfate 2 PUF Q4P PRN 11/08 170 AC 11/15 INH 2058 Albuterol Sulfate 3 ML EVERY 4 HRS/AWAKE 11/08 1999 AC 11/22 INH 0830 Aspirin 81 MG DAILY 11/07 899 AC 11/22 PO 0904 Atorvastatin Calcium 40 MG DAILY 11/07 899 AC 11/22 PO 0905 Benzonatate 100 MG TID PRN 11/06 2315 AC 11/22 PO 0555 Budesonide/ 2 PUF BID 11/06 2099 AC 11/22 Formoterol Fumarate INH 0904 Carvedilol 6.25 MG BID 11/06 2099 AC 11/22 PO 0905 Clopidogrel Bisulfate 75 MG DAILY 11/07 899 AC 11/22 PO 0905 Dobutamine HCl 250 MG Q7H 11/18 1500 DC 11/21 Dextrose/Water 250 ML IV 0649 Furosemide 60 MG 7:30 AM, & 4:30 PM 11/22 1630 UNVr PO Furosemide 60 MG BID 11/18 2100 DC 11/21 IV 1955 Guaifenesin 0 .STK-MED ONE 11/21 2302 DC PO Guaifenesin 600 MG Q12 11/11 1037 AC 11/22 PO 0905 Guaifenesin/ 0 .STK-MED ONE 11/21 2306 DC Dextromethorphan PO Guaifenesin/ 10 ML DAILY NEEDED 11/21 2300 AC 11/21 Dextromethorphan PO 2305 Guaifenesin/ 10 ML ONCE ONE 11/21 1145 DC 11/21 Dextromethorphan PO 11/21 1146 1206 Insulin Aspart 0 TIDAC/HS 11/08 2100 AC 11/21 SC 2104 Insulin Detemir 25 UNITS QAM 11/09 899 AC 11/21 SC 0901 Levothyroxine Sodium 0.15 MG DAILY AC 11/07 07 AC 11/22 PO 0555 Nitroglycerin 0.5 GM Q6P PRN 11/10 1300 AC TOP Omeprazole 40 MG DAILY AC 11/17 07 AC 11/22 PO 0555 Ramelteon 8 MG AT BEDTIME NEED.. 11/09 2215 AC 11/21 PO 1956 Ranolazine 500 MG BID 11/06 2099 AC 11/22 PO 0905 Sertraline HCl 50 MG DAILY 11/07 899 AC 11/22 PO 0905 Tamsulosin HCl 0.4 MG AT BEDTIME 11/06 2099 AC 11/21 PO 1955 Tiotropium [place] 1 PUF DAILY 11/07 899 AC 11/22 INH 0904 Results Last 48 Hrs of Labs/Mics: Laboratory Tests 11/22/17 0633: Anion Gap 6, Estimated GFR 39 L, BUN/Creatinine Ratio 24.1, Magnesium 1.9, CBC w Diff NO MAN DIFF REQ, RBC 3.64 L, MCV 102.2 H, MCH 34.4 H, MCHC 33.7, RDW 15.8 H, MPV 8.7, Gran % 85.6 H, Lymphocytes % 5.2 L, Monocytes % 8.8, Eosinophils % 0.4, Basophils % 0, Absolute Granulocytes 8.0 H, Absolute Lymphocytes 0.5 L, Absolute Monocytes 0.8 H, Absolute Eosinophils 0, Absolute Basophils 0 11/21/17 0625: Anion Gap 9, Estimated GFR 39 L, BUN/Creatinine Ratio 28.8 H, Magnesium 1.8 Telemetry personally reviewed sinus rhythm with rare PVCs and couplets Assessment/Plan Assessment/Plan 1. Shortness of breath likely multifactorial improved 2. Ischemic cardiomyopathy with prior CABG/PCI 3. AICD in situ 4. Abdominal aortic aneurysm status post prior EVAR 5. Aortic stenosis; moderate 6. Small cell lung CA 7. Hypothyroidism 8. Not on ZULAY inhibitor per reoprt due to CKD with hyperkalemia 9. Acute on chronic systolic congestive heart failure ef 25-30% 10. COPD/PATTI 11. Diabetes 12. Mild hyponatremia-sodium 133 today; renal function otherwise about the same with creatinine 1.7 Recommendations: 1. As discussed with the residents will plan to change Lasix to p.o. today 2. Physical therapy for ambulation 3. Plan is for discharge tomorrow if the patient remained stable 4. Monitor renal function as an outpatient and consider Entresto 5. Patient may shower off telemetry Continue telemetry? Yes
[2017-11-22 13:54] VITALS: BP 100/66
[2017-11-22 14:31] VITALS: BP 110/62
[2017-11-22 22:09] VITALS: BP 94/52
[2017-11-23 01:55] VITALS: BP 86/40
[2017-11-23 02:05] VITALS: BP 110/52
--- NOTE | 2017-11-23 07:14 | PN- Housestaff ---
Tre LUND,Bianka 11/23/17 0714: Subjective Follow-up For: Congestive heart failure Tele-Events Since Last Visit: Normal sinus rhythm Subjective: Patient seen and examined at bedside. No overnight events. Patient says he slept well. Denies shortness of breath, chest pain, palpitation Review of Systems Constitutional: Reports: no symptoms. Objective Last 24 Hrs of Vital Signs/I&O Vital Signs Date Time Temp Pulse Resp B/P B/P Pulse O2 O2 Flow FiO2 Mean Ox Delivery Rate 11/23 1130 100/50 / 0935 100/50 / 0832 95 Room Air 11/23 0745 96/56 11/23 0722 98.7 75 20 100/56 96 Room Air 11/23 0205 70 110/52 11/23 0155 66 86/40 11/22 2209 98.1 70 20 94/52 95 Room Air 11/22 1943 94 Room Air Room Air 11/22 1600 Room Air 11/22 1431 98.4 73 20 110/62 92 Room Air 11/22 1354 100/66 Intake & Output 11/23 1600 11/23 0800 11/23 0000 Intake Total 400 150 100 Output Total 900 650 Balance 400 -750 -550 Intake, Oral 400 150 100 Output, Urine 900 650 Patient 220 lb Weight Physical Exam General Appearance: Alert, Oriented X3, Cooperative, No Acute Distress Cardiovascular: Regular Rate, Normal S1, Normal S2, No Murmurs Lungs: Normal Air Movement Abdomen: Soft, No Tenderness, No Hepatospenomegaly Neurological: Normal Speech, Strength at 5/5 X4 Ext, Normal Tone, Cranial Nerves 3-12 NL Current Medications: Current Medications Sig/Penny Start time Last Medication Dose Route Stop Time Status Admin Acetaminophen 650 MG Q6P PRN 11/06 2044 AC 11/23 PO 1139 Albuterol Sulfate 2 PUF Q4P PRN 11/08 170 AC 11/15 INH 205 Albuterol Sulfate 3 ML EVERY 4 HRS/AWAKE 11/08 1999 AC 11/23 INH 115 Aspirin 81 MG DAILY 11/07 899 AC 11/23 PO 075 Atorvastatin Calcium 40 MG DAILY 11/07 899 AC 11/23 PO 075 Benzonatate 100 MG TID PRN 11/06 2315 AC 11/22 PO 2020 Budesonide/ 2 PUF BID 11/06 2099 AC 11/23 Formoterol Fumarate INH 0755 Carvedilol 6.25 MG BID 11/06 2099 AC 11/22 PO 2020 Clopidogrel Bisulfate 75 MG DAILY 11/07 09 AC 11/23 PO 0754 Furosemide 60 MG 7:30 AM, & 4:30 PM 11/22 1630 AC 11/22 PO 1719 Furosemide 60 MG ONCE ONE 11/22 1400 DC 11/22 PO 11/22 1401 1352 Furosemide 0 .STK-MED ONE 11/22 1350 DC PO Guaifenesin 600 MG Q12 11/11 1037 AC 11/23 PO 0754 Guaifenesin/ 10 ML DAILY NEEDED 11/21 2300 AC 11/23 Dextromethorphan PO 0729 Insulin Aspart 0 TIDAC/HS 11/08 2100 AC 11/23 SC 1205 Insulin Detemir 25 UNITS QAM 11/09 0900 AC 11/23 SC 0932 Levothyroxine Sodium 0.15 MG DAILY AC 11/07 0700 AC 11/23 PO 0541 Nitroglycerin 0.5 GM Q6P PRN 11/10 1300 AC TOP Omeprazole 40 MG DAILY AC 11/17 0700 AC 11/23 PO 0541 Ramelteon 8 MG AT BEDTIME NEED.. 11/09 2215 AC 11/22 PO 2020 Ranolazine 500 MG BID 11/06 2099 AC 11/22 PO 2020 Sertraline HCl 50 MG DAILY 11/07 09 AC 11/23 PO 0754 Tamsulosin HCl 0.4 MG AT BEDTIME 11/06 2099 AC 11/22 PO 2020 Tiotropium [place] 1 PUF DAILY 11/07 09 AC 11/23 INH 0755 Last 24 Hrs of Lab/Abimael Results Last 24 Hrs of Labs/Mics: Laboratory Tests 11/23/17 0835: Anion Gap 7, Estimated GFR 35 L, BUN/Creatinine Ratio 21.1, Magnesium 1.9 Assessment/Plan Assessment: Patient is a 77-year-old male presented with chief complaints of gradually progressive shortness of breath. Past medical history- * Small Cell lung CA (last dose of radiation 3 months ago), * IDDM (dx 3months ago), * Ischemic cardiomyopathy with EF 20% s/p defibrillator placement (Mar 2017), * s/p carotid endarterectomy right side (1997), * CABG (1988), CAD with stents (1990s), * h/o DVT (5 yrs ago), * COPD, * Hypothyroidism * Hypertension * BPH * Obstructive sleep apnea on nocturnal CPAP Assessment and plan CHF exacerbation with ischemic cardiomyopathy with ejection fraction of 20% status post AICD Mar 2017 Patient being treated for congestive heart failure with IV Lasix. Patient improved well and slowly transition to p.o. Lasix. Patient will be going home with new change in dose of his Lasix to 60 mg twice daily. Given his kidney function we will repeat BP in 1 week and follow-up with Dr. Bruce Vasquez and his primary care physician in 1 week. Patient is planned to be started on interest to. Problem List: 1. CHF exacerbation Pain Ratin Pain Location: NONE Pain Goal: Remain pain free Pain Plan: TYLENOL Tomorrow's Labs & Rationales: CBC,BEP Josue LUND,Lauren 11/23/17 1213: Attending MD Review Statement Attending Statement Attending MD Statement: examined this patient, discuss w/resident/PA/TRACK LAYER HEAD, agreed w/resident/PA/TRACK LAYER HEAD, reviewed EMR data (avail) Attending Assessment/Plan: Patient seen and examined at bedside. Agree with resident assessment and plan. Patient feels well with no complaints. No tele events. Renal function stable. Plan - Stable for discharge - Lasix 60mg PO BID - Outpatient cardiology follow up - Continue home medications
[2017-11-23 07:22] VITALS: BP 100/56
[2017-11-23 07:45] VITALS: BP 96/56
[2017-11-23 09:35] VITALS: BP 100/50
--- NOTE | 2017-11-23 10:37 | PN- Cardiology ---
Subjective Subjective: Patient is doing quite well. His weight and his edema have decreased significantly compared with last week. He feels his breathing is at baseline. Objective Vital Signs and I&Os Vital Signs Date Time Temp Pulse Resp B/P B/P Pulse O2 O2 Flow FiO2 Mean Ox Delivery Rate 11/23 0935 100/50 / 0832 95 Room Air 11/23 0745 96/56 11/23 0722 98.7 75 20 100/56 96 Room Air 11/23 0205 70 110/52 11/23 0155 66 86/40 11/22 2209 98.1 70 20 94/52 95 Room Air 11/22 1943 94 Room Air Room Air 11/22 1600 Room Air 11/22 1431 98.4 73 20 110/62 92 Room Air 11/22 1354 100/66 Intake & Output 11/23 1600 11/23 0800 11/23 0000 11/22 1600 11/22 0800 11/22 0000 Intake Total 150 100 540 240 480 Output Total 900 650 085 531 9749 Balance -750 -550 240 -110 -845 Intake, Oral 150 100 540 240 480 Output, Urine 900 650 225 197 3486 Patient 220 lb 220 lb Weight Physical Exam: General: no apparent distress. Alert. Eyes: No obvious scleral icterus. HEENT: No jugular venous distention or abnormal jugular venous pulsations. Cardiovascular: Normal intensity S1/S2. Regular. ICD noted, 2 out of 6 systolic murmur Respiratory: No rales or rhonchi Abdomen: Soft, nontender with no guarding or rebound tenderness. Musculoskeletal: No clubbing or cyanosis noted; trace lower extremity edema Skin: warm Neurologic: No gross focal deficits noted. Current Medications: Current Medications Sig/Penny Start time Last Medication Dose Route Stop Time Status Admin Acetaminophen 650 MG Q6P PRN 11/06 2044 AC 11/23 PO 0056 Albuterol Sulfate 2 PUF Q4P PRN 11/08 170 AC 11/15 INH 2058 Albuterol Sulfate 3 ML EVERY 4 HRS/AWAKE 11/08 1999 AC 11/23 INH 08 Aspirin 81 MG DAILY 11/07 899 AC 11/23 PO 075 Atorvastatin Calcium 40 MG DAILY 11/07 899 AC 11/23 PO 075 Benzonatate 100 MG TID PRN 11/06 2315 AC 11/22 PO 2020 Budesonide/ 2 PUF BID 11/06 2099 AC 11/23 Formoterol Fumarate INH 0755 Carvedilol 6.25 MG BID 11/06 2099 AC 11/22 PO 2020 Clopidogrel Bisulfate 75 MG DAILY 11/07 09 AC 11/23 PO 0754 Furosemide 60 MG 7:30 AM, & 4:30 PM 11/22 1630 AC 11/22 PO 1719 Furosemide 60 MG ONCE ONE 11/22 1400 DC 11/22 PO 11/22 1401 1352 Furosemide 0 .STK-MED ONE 11/22 1350 DC PO Guaifenesin 600 MG Q12 11/11 1037 AC 11/23 PO 0754 Guaifenesin/ 10 ML DAILY NEEDED 11/21 2300 AC 11/23 Dextromethorphan PO 0729 Insulin Aspart 0 TIDAC/HS 11/08 2099 AC 11/22 SC 2154 Insulin Detemir 25 UNITS QAM 11/09 09 AC 11/23 SC 0932 Levothyroxine Sodium 0.15 MG DAILY AC 11/07 07 AC 11/23 PO 0541 Nitroglycerin 0.5 GM Q6P PRN 11/10 1300 AC TOP Omeprazole 40 MG DAILY AC 11/17 07 AC 11/23 PO 0541 Ramelteon 8 MG AT BEDTIME NEED.. 11/09 221 AC 11/22 PO 2020 Ranolazine 500 MG BID 11/06 2099 AC 11/22 PO 2020 Sertraline HCl 50 MG DAILY 11/07 09 AC 11/23 PO 075 Tamsulosin HCl 0.4 MG AT BEDTIME 11/06 2099 AC 11/22 PO 2020 Tiotropium [place] 1 PUF DAILY 11/07 899 AC 11/23 INH 0755 Results Last 48 Hrs of Labs/Mics: Laboratory Tests 11/23/17 0835: Anion Gap 7, Estimated GFR 35 L, BUN/Creatinine Ratio 21.1, Magnesium 1.9 11/22/17 0633: Anion Gap 6, Estimated GFR 39 L, BUN/Creatinine Ratio 24.1, Magnesium 1.9, CBC w Diff NO MAN DIFF REQ, RBC 3.64 L, MCV 102.2 H, MCH 34.4 H, MCHC 33.7, RDW 15.8 H, MPV 8.7, Gran % 85.6 H, Lymphocytes % 5.2 L, Monocytes % 8.8, Eosinophils % 0.4, Basophils % 0, Absolute Granulocytes 8.0 H, Absolute Lymphocytes 0.5 L, Absolute Monocytes 0.8 H, Absolute Eosinophils 0, Absolute Basophils 0 Recent Imaging Studies: Telemetry tracings were personally reviewed and shows sinus rhythm with occasional PVCs Assessment/Plan Assessment/Plan 1. Shortness of breath likely multifactorial improved 2. Ischemic cardiomyopathy with prior CABG/PCI 3. AICD in situ 4. Abdominal aortic aneurysm status post prior EVAR 5. Aortic stenosis; moderate 6. Small cell lung CA 7. Hypothyroidism 8. Not on ZULAY inhibitor per reoprt due to CKD with hyperkalemia 9. Acute on chronic systolic congestive heart failure ef 25-30% 10. COPD/PATTI 11. Diabetes Patient has been transitioned to oral Lasix and is doing well. His weight and lower extremity edema have decreased quite significantly compared with last week. Minimal elevation in creatinine today; would continue on the current oral Lasix regimen and plan for repeat metabolic panel as an outpatient within 1 week ; if kidney function is stable he can be considered for Entresto initiation as an outpatient if clinical status allows. He should follow-up in our office within 1 week of discharge. 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 Brady Arce MD [facility] Continue telemetry? No
[2017-11-23 11:30] VITALS: BP 100/50
== END 2017-11-23 14:40 | disposition home health service (06) | DRG 190 ==
LOC: ERH 14:44 → 2NB 18:36 → ERHI 18:36 → ENRESERV 19:55 → ENTRNSPT 21:05 → EDTRNSPT 21:10 → EDTRNSPTSTS 21:10 → 2NB 21:17 → CMPTRNSPT 21:33 → 2NB 11-07 08:27 → 1NO 11-14 10:53 → ENPENDDIS 11-23 13:30 → 1NO 11-23 14:40
PROVIDERS: Hospitalist; Internal Medicine Adolescent Medicine; Physician Assistant Medical; Student in an Organized Health Care Education/Training Program
PROC: 5A09457 Assistance with Respiratory Ventilation, 24-96 Consecutive Hours, Continuous Positive Airway Pressure (ICD-10-PCS; principal; 2017-11-07)
DX: J44.1 Chronic obstructive pulmonary disease with (acute) exacerbation (principal); I50.23 Acute on chronic systolic (congestive) heart failure; J90 Pleural effusion, not elsewhere classified; C34.90 Malignant neoplasm of unspecified part of unspecified bronchus or lung; I13.0 Hypertensive heart and chronic kidney disease with heart failure and stage 1 through stage 4 chronic kidney disease, or unspecified chronic kidney disease; I25.10 Atherosclerotic heart disease of native coronary artery without angina pectoris; Z98.61 Coronary angioplasty status; Z86.718 Personal history of other venous thrombosis and embolism; Z79.01 Long term (current) use of anticoagulants; I25.5 Ischemic cardiomyopathy; Z92.3 Personal history of irradiation; E03.9 Hypothyroidism, unspecified; Z87.891 Personal history of nicotine dependence; N18.3 Chronic kidney disease, stage 3 (moderate); E11.22 Type 2 diabetes mellitus with diabetic chronic kidney disease; Z66 Do not resuscitate; Z79.82 Long term (current) use of aspirin; Z79.4 Long term (current) use of insulin; Z79.51 Long term (current) use of inhaled steroids; Z79.52 Long term (current) use of systemic steroids; Z95.810 Presence of automatic (implantable) cardiac defibrillator; G47.33 Obstructive sleep apnea (adult) (pediatric); I35.0 Nonrheumatic aortic (valve) stenosis; D69.6 Thrombocytopenia, unspecified; R79.89 Other specified abnormal findings of blood chemistry; N40.0 Benign prostatic hyperplasia without lower urinary tract symptoms
CPT/HCPCS: 1NP; 1NSP; 2NSBP; 36415; 36592; 71045; 82436; 93005; 93010; 93306; 93308; 93321; 96374; 97116-GO; 97161-GP; 97530-GO; 99291; J0456; J1644; J1815; J1940; J2920; J2930; J3490; J7512

== ENCOUNTER 2017-11-29 06:27 | Emergency (ER) | payer OTHER, MEDICARE ==
[~2017-11-29] VITALS: Ht 182.9 cm; Wt 104.3 kg
--- NOTE | 2017-11-29 06:38 | ED GENERAL ADULT ---
History of Present Illness General Chief Complaint: Chest Pain Stated Complaint: PT C/O CHEST PAIN " MAJOR CARDIAC HX" Source: patient Exam Limitations: no limitations Vital Signs & Intake/Output Vital Signs & Intake/Output Vital Signs Date Time Temp Pulse Resp B/P B/P Pulse O2 O2 Flow FiO2 Mean Ox Delivery Rate 11/29 1446 98.0 106 18 125/70 96 Room Air 11/29 1253 109/64 11/29 1251 112/64 11/29 1249 97.9 92 18 119/67 97 Room Air 11/29 1139 97.9 96 18 124/57 95 Room Air 11/29 0853 97.8 88 18 115/67 97 Room Air 11/29 0741 Room Air 11/29 0635 89 22 106/70 97 Room Air Allergies Coded Allergies: No Known Allergies (11/26/17) Reconcile Medications Acetaminophen 325 MG CAPSULE 1 CAP PO PRN PAIN (Reported) Albuterol Sulfate (Proair Hfa) 90 MCG HFA.AER.AD 2 PUF INH Q4 COPD Aspirin (Aspirin*) 81 MG TAB.CHEW 1 TAB PO DAILY heart (Reported) Atorvastatin Calcium (Lipitor) 40 MG TABLET 1 TAB PO DAILY cholesterol ( Reported) Budesonide/Formoterol Fumarate (Symbicort 160-4.5 Mcg Inhaler) 160 MCG-4.5 MCG/ ACTUATION HFA.AER.AD 2 PUF INH BID COPD (Reported) Carvedilol 6.25 MG TABLET 1 TAB PO BID HEART/BP (Reported) Clopidogrel Bisulfate (Clopidogrel) 75 MG TABLET 1 TAB PO DAILY BLOOD THINNER (Reported) Empagliflozin (Jardiance) 10 MG TABLET 1 TAB PO DAILY DM (Reported) Furosemide (Lasix) 20 MG TABLET 3 TAB PO BID HEART (Reported) . Insulin Aspart, Recombinant (Novolog Flexpen) 100 UNIT/ML INSULN.PEN 0 SC SEE ADMIN CRITERIA DM PLEASE check your blood sugar 3 times daily before meals and at bedtime and . FOLLOW 80 - 150 MG/DL 9 UNITS 151- 200 MG/DL 11 UNITS 201- 250 MG/DL 13 UNITS 251- 300 MG/DL 15 UNITS 301- 350 MG/DL 17 UNITS 351 - 400MG/DL 19 UNITS >400 MG/DL 20 UNITS AND CALL YOUR DR. Insulin Detemir (Levemir) 100 UNIT/ML VIAL 25 UNITS SC QAM DM (Reported) Levothyroxine Sodium 100 MCG TABLET 1.5 TAB PO DAILY HYPOTHYROID (Reported) Nitroglycerin (Nitrostat) 0.4 MG TAB.SUBL 1 TAB SL AD PRN CHEST PAIN ( Reported) 1st sign of attack; may repeat every 5 minutes until relief; if pain persists after 3 tablets in 15 minutes, prompt medical att Omeprazole 40 MG CAPSULE.DR 1 CAP PO DAILY GI (Reported) Ranolazine (Ranexa) 500 MG TAB.ER.12H 1 TAB PO BID heart (Reported) Sertraline HCl 50 MG TABLET 1 TAB PO DAILY MENTAL HEALTH (Reported) Tamsulosin HCl (Flomax) 0.4 MG CAP.ER.24H 1 CAP PO QHS prostate Please take at bed time to avoid low blood pressure during the day. Tiotropium [place] (Spiriva) 18 MCG CAP.W.DEV 1 CAP INH DAILY COPD (Reported) Triage Nurses Notes Reviewed? yes HPI: Mr Franco is a 77 y/o M with extensive cardiac history, presents with presyncope and crushing substernal chest pain nonradiating that was improved with nitroglycerin. Patient is walked into the shower when he felt chest pain and lightheadedness following a pass out at which time he presented to the emergency department. 9 out of 10 at home, after nitroglycerin reduced to a 6 out of 10. Negative for diaphoresis. Mr Franco is uncertain of exertional exacerbation. Denies shortness of breath. (Vinod LUND,Jose Antonio) Past History Travel History Traveled to [place] past 21 day No Medical History Any Pertinent Medical History? see below for history Neurological: NONE EENT: NONE Cardiovascular: CARDIAC STENTS CABG CAROTID ARTERY BYPASS DEFIBRILLATOR Respiratory: COPD Gastrointestinal: NONE Hepatic: NONE Renal: NONE Musculoskeletal: NONE Psychiatric: NONE Endocrine: hypothyroidism, INSULIN DEP DIABETIC Blood Disorders: DVT Cancer(s): lung cancer ADOLESCENT COUNSELOR/Reproductive: NONE History of MRSA: No History of VRE: No History of CDIFF: No Surgical History Surgical History: CABG, CAROTID ARTECTOMY nerve thermoablation to reduce back pain Psychosocial History Who do you live with Spouse Services at Home None What is your primary language Citizen Of [place] Family History Family History, If Any: Relation not specified for: *No pertinent family history Hx Contributory? No (Jose Antonio Brock MD) Review of Systems Review of Systems Constitutional: Reports: no symptoms, see HPI. EENTM: Reports: no symptoms. Respiratory: Reports: no symptoms. Cardiovascular: Reports: no symptoms. GI: Reports: no symptoms. Genitourinary: Reports: no symptoms. Musculoskeletal: Reports: no symptoms. Skin: Reports: no symptoms. Neurological/Psychological: Reports: no symptoms. Hematologic/Endocrine: Reports: no symptoms. Immunologic/Allergic: Reports: no symptoms. All Other Systems: Reviewed and Negative (Jose Antonio Brock MD) Physical Exam Physical Exam General Appearance: no apparent distress, comfortable Comments: Gen.: Well-nourished, well-developed, no acute respiratory distress. Head: Normocephalic, atraumatic. Eyes: Normal inspection bilaterally Ears: Normal inspection bilaterally Nose: Normal inspection Throat/mouth : Moist mucosa Neck: Supple, full range of motion Heart: Regular rate and rhythm, no murmurs rubs or gallops Lungs: Clear to auscultation bilaterally with normal air entry Chest: Nontender Back: Normal range of motion Abdomen: Soft, nontender, nondistended, normal bowel sounds Extremities: Normal range of motion grossly, equal radial pulses, no cyanosis clubbing. 1+ pitting edema lower extremities bilaterally. Neurologic: Cranial nerves grossly intact, speech is clear Skin: Extensive bruising from prior hospital evaluation Psychiatric: Calm, cooperative, no apparent delusions or hallucinations Core Measures ACS in differential dx? Yes CVA/TIA Diagnosis: No Sepsis Present: No Sepsis Focused Exam Completed? No (Jose Antonio Brock MD) Progress Differential Diagnoses I considered the following diagnoses in my evaluation of the patient: I considered the following: Pericarditis- but the patient had no pericardial friction rub, no preceding viral illnesses and no EKG changes consistent with this. Acute coronary syndrome but the patient's EKG showed no acute changes, the troponin level was normal, the patient had a paucity of risk factors and the patient's clinical presentation wasn't consistent with this. Pneumothorax but the chest x-ray did not show this. Pneumonia but the chest x-ray did not show infiltrate. Pulmonary embolus but the patient had no resting tachycardia, was not hypoxic, had a paucity of risk factors and was PERC negative. Aortic aneurysm but the description of the patient's pain was inconsistent with this. The chest x-ray showed no widened mediastinum or other changes consistent with this. In addition the patient had a paucity of risk factors. Plan of Care: Orders Procedure Date/time Status Heart Healthy Diet 11/29 L Active TROPONIN LEVEL 11/29 1238 Complete EKG 11/29 1238 Active MISTAKE 11/29 1236 Active PROTHROMBIN TIME 11/29 0645 Complete TROPONIN LEVEL 11/29 0644 Complete MAGNESIUM 11/30 643 Complete COMPREHENSIVE METABOLIC PANEL 11/30 643 Complete CHOLESTEROL 11/30 643 Complete CBC WITHOUT DIFFERENTIAL 11/30 643 Complete EKG 11/29 0629 Active Laboratory Tests 11/29/17 1314: Troponin I 0.06 11/29/17 0644: Anion Gap 8, Estimated GFR 39 L, BUN/Creatinine Ratio 15.9, Glucose 168 H, Calcium 9.0, Magnesium 1.6, Total Bilirubin 0.3, AST 23, ALT 42, Alkaline Phosphatase 126, Troponin I 0.07, Total Protein 5.4 L, Albumin 3.2 L, Globulin 2.2, Albumin/Globulin Ratio 1.5, Cholesterol 141, PT 12.5, INR 1.15, CBC w Diff NO MAN DIFF REQ, RBC 3.33 L, MCV 100.7 H, MCH 34.3 H, MCHC 34.1, RDW 15.6 H, MPV 7.8, Gran % 75.4 H, Lymphocytes % 11.1 L, Monocytes % 11.1 H, Eosinophils % 2.4, Basophils % 0, Absolute Granulocytes 4.3, Absolute Lymphocytes 0.6 L, Absolute Monocytes 0.6, Absolute Eosinophils 0.1, Absolute Basophils 0 Initial ED EKG: normal axis, LBBB, nonspecific ST T wave chg, Single PVC. Prior EKG: unchanged Hand-Off Endorsed To: Elizabeth LUND,Jf Abernathy Endorsed Time: 703 Pending: labs, Xray (Vinod LUND,Jose Antonio) Differential Diagnoses I considered the following diagnoses in my evaluation of the patient: Diagnostic Imaging: Discussed w/RAD: CT Scan. Radiology Impression: PATIENT: EMILY FRANCO JR PRESENT AGE: 77 PATIENT ACCOUNT NO: [id number] : 42 LOCATION: [facility] ORDERING PHYSICIAN: Jf Johnson MD SERVICE DATE: 11/29/17-1020 EXAM TYPE : CAT - CT CHEST WO IV CONTRAST EXAMINATION: CT CHEST WITHOUT CONTRAST CLINICAL INFORMATION: Left base parenchymal/pleural disease seen on x-ray. Presumptive diagnosis of pneumonitis, pneumonia, effusion. COMPARISON: Chest x-ray dated 01/2018. CT scan of the chest dated 11/07/2017, 05/10/2017, and 12/14/2016. PET CT scan dated 11/02/2016. TECHNIQUE: Multidetector volumetric CT imaging of the chest was obtained noncontrast. Sagittal and coronal reformations were obtained. DLP: 527.50 mGy-cm. FINDINGS: LUNGS: A small left pleural effusion is seen, decreased in size when compared to 11/07/2017. Previously seen trace right-sided pleural effusion has completely resolved. There is persistent patchy parenchymal opacity seen in the left lower lobe, minimally improved when compared to 2017. Minimal linear reticular opacity in the lingula is noted, unchanged. No new area of dense consolidation is seen. The central airways are narrowed but remain patent. Mild centrilobular emphysema is noted. Evaluation is limited due to motion artifact and beam hardening artifact related to the pacer generator in the left supralateral lateral chest. 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 No new focal lung nodule or mass. No effusion or pneumothorax. Central airways patent. LYMPHOVASCULAR STRUCTURES: Abdominal aortic aneurysm is again noted with changes of an aortic stent graft. The abdominal aorta measures 5.6 cm in maximal AP diameter at the level of the renal micaela, unchanged. There is also aneurysmal dilatation of the descending thoracic aorta, measuring up to 5 cm in diameter at the diaphragmatic hiatus, unchanged. The aortic arch and ascending aorta are normal in caliber. Moderate atherosclerotic calcifications of the aorta are seen. Severe coronary artery calcifications are noted. Heart size borderline enlarged. AICD lead is seen in the right ventricle. No pericardial effusion. No mediastinal, hilar or axillary adenopathy. THYROID GLAND: Unremarkable to the extent included. UPPER ABDOMEN: Exophytic 1.3 cm and 1.1 cm upper pole right renal cysts are seen, unchanged. Small 1 cm accessory splenule is seen along the anterior margin of the spleen. Included portions of the solid organs in the upper abdomen otherwise unremarkable. BONES: Mild S-shaped thoracolumbar scoliosis and multilevel mild vertebral spondylosis seen. Prominent Schmorl's nodes noted in midthoracic vertebral bodies. Median sternotomy is seen. No suspicious bone findings. IMPRESSION: 1. Patient's known left lower lobe cancer is unchanged when compared to most recent prior exam. 2. Interval slight decrease in size of the left-sided pleural effusion and associated volume loss and presumed atelectatic changes in the left lower lobe and lingula. 3. Right- sided pleural effusion has completely resolved. Background of mild emphysema remains. 4. Distal thoracic and abdominal aortic aneurysm, unchanged. Abdominal aortic stent graft is partially imaged. 5. Severe atherosclerotic coronary artery calcification. Patient is status post median sternotomy and CABG surgery. 6. Right renal cysts. DICTATED BY: Eunice Ramesh MD DATE/TIME DICTATED:1138 REPAIR ARMATURE WINDER:CAROL ANN DATE/TIME TRANSCRIBED:11/29/171138 CONFIDENTIAL, DO NOT COPY WITHOUT APPROPRIATE AUTHORIZATION. 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 11/29/2017 9:34:34 AM I have updated Emily on test results. He has no complaint at this time, specifically he states he has no chest pain. He states initially he had a left sided upper chest pain that felt like a burning sensation. I will attempt to discuss his case with Dr. Vasquez, his under water assistant and Dr. Damico, his desulfurizer hand. 11/29/2017 10:17:58 AM patient's case discussed with Dr. Damico who recommends a decubitus view of the chest or a CAT scan of the chest to better evaluate the possibility of a pleural effusion. 11/29/2017 11:27:06 AM patient's case discussed with Dr. Pugh who will evaluate the patient in the emergency department shortly. 11/29/2017 12:28:14 PM patient is being evaluated by Dr. Pugh. 11/29/2017 3:41:27 PM patient is awaiting interrogation of his defibrillator at the request of Dr. Pugh, who stated he would contact his office to arrange the interrogation. 11/29/2017 4:42:44 PM Per [employer], single lead device sensing properly. no apparent recent episodes of dysrhythmia. (Elizabeth LUND,Jf Abernathy) Departure Departure Condition: Stable Clinical Impression Primary Impression: Chest pain Qualifiers: Chest pain type: unspecified Qualified Code: R07.9 - Chest pain, unspecified Secondary Impressions: Pre-syncope Referrals: Sayra Tang MD (PCP/Family) Departure Forms: Customer Survey General Discharge Information (Jose Antonio Brock MD) Departure Disposition: HOME OR SELF CARE Additional Instructions: Follow-up with Dr. Vasquez this week. Notify your primary care doctor of this emergency department visit and treatment plan. Return if any concerns or sudden worsening. You may take your medications as usual. (Elizabeth LUND,Jf Abernathy) Critical Care Note Critical Care Note Critical Care Time: non-applicable (Jose Antonio Brock MD)
[2017-11-29 06:57] LABS: ABSOLUTE BASOPHIL COUNT 0 /CUMM (0.0-0.2); ABSOLUTE EOSINOPHIL COUNT 0.1 /CUMM (0.0-0.7); ABSOLUTE GRANULOCYTE CT 4.3 /CUMM (1.4-6.5); ABSOLUTE LYMPH COUNT 0.6 /CUMM (1.2-3.4); ABSOLUTE MONOCYTE COUNT 0.6 /CUMM (0.10-0.60); BASOPHIL % 0 % (0.0-2.0); EOSINOPHIL % 2.4 % (0-5); GRANULOCYTE % 75.4 % (42.2-75.2); HEMATOCRIT 33.5 % (42-52); MEAN CORPUSCULAR HGB 34.3 PG (27.0-31.0); MEAN CORPUSCULAR HGB CONC 34.1 G/DL (33.0-37.0); MEAN CORPUSCULAR VOLUME 100.7 FL (80.0-94.0); MEAN PLATELET VOLUME 7.8 FL (7.4-10.4); PLATELET COUNT 134 /CUMM (130-400); RBC DISTRIBUTION WIDTH 15.6 % (11.5-14.5); RED BLOOD CELL CT 3.33 /CUMM (4.70-6.10); WHITE BLOOD CELL COUNT 5.8 /CUMM (4.8-10.8)
[2017-11-29 07:01] LABS: PT 12.5 SEC (9.4-12.5)
--- NOTE | 2017-11-29 07:30 | RADIOLOGY REPORT ---
EXAMINATION: XR PORTABLE CHEST CLINICAL INFORMATION: Chest pain COMPARISON: 11/10/2017 TECHNIQUE: Portable frontal view of the chest was obtained. FINDINGS: Evidence of previous cardiac surgery. AICD in place grossly stable. Progressive airspace disease left base consistent with presumably pneumonitis. Underlying layering pleural effusion suspected. Hazy density right midlung laterally favor summation shadow. No ectopic air. No overt CHF. Heart size remains mildly enlarged. No significant abnormality otherwise is noted involving the heart, lungs, mediastinum, bony thorax or soft tissues. IMPRESSION: Mild progression of pleural-parenchymal disease left base as above.
--- NOTE | 2017-11-29 12:05 | CT SCAN REPORT ---
EXAMINATION: CT CHEST WITHOUT CONTRAST CLINICAL INFORMATION: Left base parenchymal/pleural disease seen on x-ray. Presumptive diagnosis of pneumonitis, pneumonia, effusion. COMPARISON: Chest x-ray dated 11/29/2017. CT scan of the chest dated 11/07/2017, 05/10/2017, and 12/14/2016. PET CT scan dated 11/02/2016. TECHNIQUE: Multidetector volumetric CT imaging of the chest was obtained noncontrast. Sagittal and coronal reformations were obtained. DLP: 527.50 mGy-cm. FINDINGS: LUNGS: A small left pleural effusion is seen, decreased in size when compared to 11/07/2017. Previously seen trace right-sided pleural effusion has completely resolved. There is persistent patchy parenchymal opacity seen in the left lower lobe, minimally improved when compared to 11/07/2017. Minimal linear reticular opacity in the lingula is noted, unchanged. No new area of dense consolidation is seen. The central airways are narrowed but remain patent. Mild centrilobular emphysema is noted. Evaluation is limited due to motion artifact and beam hardening artifact related to the pacer generator in the left supralateral lateral chest. 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 No new focal lung nodule or mass. No effusion or pneumothorax. Central airways patent. LYMPHOVASCULAR STRUCTURES: Abdominal aortic aneurysm is again noted with changes of an aortic stent graft. The abdominal aorta measures 5.6 cm in maximal AP diameter at the level of the renal micaela, unchanged. There is also aneurysmal dilatation of the descending thoracic aorta, measuring up to 5 cm in diameter at the diaphragmatic hiatus, unchanged. The aortic arch and ascending aorta are normal in caliber. Moderate atherosclerotic calcifications of the aorta are seen. Severe coronary artery calcifications are noted. Heart size borderline enlarged. AICD lead is seen in the right ventricle. No pericardial effusion. No mediastinal, hilar or axillary adenopathy. THYROID GLAND: Unremarkable to the extent included. UPPER ABDOMEN: Exophytic 1.3 cm and 1.1 cm upper pole right renal cysts are seen, unchanged. Small 1 cm accessory splenule is seen along the anterior margin of the spleen. Included portions of the solid organs in the upper abdomen otherwise unremarkable. BONES: Mild S-shaped thoracolumbar scoliosis and multilevel mild vertebral spondylosis seen. Prominent Schmorl's nodes noted in midthoracic vertebral bodies. Median sternotomy is seen. No suspicious bone findings. IMPRESSION: 1. Patient's known left lower lobe cancer is unchanged when compared to most recent prior exam. 2. Interval slight decrease in size of the left-sided pleural effusion and associated volume loss and presumed atelectatic changes in the left lower lobe and lingula. 3. Right-sided pleural effusion has completely resolved. Background of mild emphysema remains. 4. Distal thoracic and abdominal aortic aneurysm, unchanged. Abdominal aortic stent graft is partially imaged. 5. Severe atherosclerotic coronary artery calcification. Patient is status post median sternotomy and CABG surgery. 6. Right renal cysts.
--- NOTE | 2017-11-29 13:20 | Cons- Cardiology ---
See Addendum General Information and HPI Consulting Request Date of Consult: 11/29/17 Requested By: Jf Johnson MD Reason for Consult: lightheadedness Source of Information: patient, old records, ED physician Exam Limitations: no limitations History of Present Illness: 77-year-old male past medical history coronary artery disease status post CABG 4 (1988), ischemic cardiomyopathy (LVEF 25-30% 11/14/2017) s/p Medtronic ICD with no history of ICD shocks last interrogation 11/17/2017 showing no ventricular arrhythmias, mild to moderate aortic stenosis, significant peripheral vascular disease with AAA status post EVAR, carotid stenosis s/p right ICA CEA with total occlusion of left ICA, two stents in right groin, HTN, HLD, COPD, squamous cell lung cancer s/p radiation and recently completed course of prednisone, prior b/l pleural effusions, hypothyroidism presents after episode of sudden onset lightheadedness. Patient reports that he had just gotten into the shower when he became suddenly lightheaded. He denies associated chest pain, palpitations, dyspnea. He denies fall or loss of consciousness. The symptoms were transient and resolved and the patient sat down. He did report a discomfort in his left shoulder and a "fluttering feeling in his neck." The patient is a very minimal exercise tolerance at baseline, can cross her room and become short of breath, however this is unchanged. He denies worsening orthopnea, PND, reports that previous lower extremity swelling has improved. At the time of this history the patient denies symptoms while at rest. The patient is compliant with all medications. He also noted that on 2 occasions, including this morning, when he raises his arms above his head he feels that both of his lower extremities become numb. The symptoms have resolved by the time of this history. Allergies/Medications Allergies: Coded Allergies: No Known Allergies (11/26/17) Home Med List: Acetaminophen 325 MG CAPSULE 1 CAP PO PRN PAIN (Reported) Albuterol Sulfate (Proair Hfa) 90 MCG HFA.AER.AD 2 PUF INH Q4 COPD Aspirin (Aspirin*) 81 MG TAB.CHEW 1 TAB PO DAILY heart (Reported) Atorvastatin Calcium (Lipitor) 40 MG TABLET 1 TAB PO DAILY cholesterol ( Reported) Budesonide/Formoterol Fumarate (Symbicort 160-4.5 Mcg Inhaler) 160 MCG-4.5 MCG/ ACTUATION HFA.AER.AD 2 PUF INH BID COPD (Reported) Carvedilol 6.25 MG TABLET 1 TAB PO BID HEART/BP (Reported) Clopidogrel Bisulfate (Clopidogrel) 75 MG TABLET 1 TAB PO DAILY BLOOD THINNER (Reported) Empagliflozin (Jardiance) 10 MG TABLET 1 TAB PO DAILY DM (Reported) Furosemide (Lasix) 20 MG TABLET 3 TAB PO BID HEART (Reported) . Insulin Aspart, Recombinant (Novolog Flexpen) 100 UNIT/ML INSULN.PEN 0 SC SEE ADMIN CRITERIA DM PLEASE check your blood sugar 3 times daily before meals and at bedtime and . FOLLOW 80 - 150 MG/DL 9 UNITS 151- 200 MG/DL 11 UNITS 201- 250 MG/DL 13 UNITS 251- 300 MG/DL 15 UNITS 301- 350 MG/DL 17 UNITS 351 - 400MG/DL 19 UNITS >400 MG/DL 20 UNITS AND CALL YOUR DR. Insulin Detemir (Levemir) 100 UNIT/ML VIAL 25 UNITS SC QAM DM (Reported) Levothyroxine Sodium 100 MCG TABLET 1.5 TAB PO DAILY HYPOTHYROID (Reported) Nitroglycerin (Nitrostat) 0.4 MG TAB.SUBL 1 TAB SL AD PRN CHEST PAIN ( Reported) 1st sign of attack; may repeat every 5 minutes until relief; if pain persists after 3 tablets in 15 minutes, prompt medical att Omeprazole 40 MG CAPSULE.DR 1 CAP PO DAILY GI (Reported) Ranolazine (Ranexa) 500 MG TAB.ER.12H 1 TAB PO BID heart (Reported) Sertraline HCl 50 MG TABLET 1 TAB PO DAILY MENTAL HEALTH (Reported) Tamsulosin HCl (Flomax) 0.4 MG CAP.ER.24H 1 CAP PO QHS prostate Please take at bed time to avoid low blood pressure during the day. Tiotropium Marion (Spiriva) 18 MCG CAP.W.DEV 1 CAP INH DAILY COPD (Reported) Current Medications: Current Medications Sig/Penny Start time Last Medication Dose Route Stop Time Status Admin Aspirin 0 .STK-MED ONE 11/30 651 DC PO Aspirin 325 MG ONCE ONE 11/29 644 DC 11/29 PO 11/29 645 0652 Review of Systems Review of Systems: As per HPI. Otherwise a 10 point review systems was negative. 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 spouse Services at Home: None Primary Language: [place] Living Will? no Functional Ability ADLs Independent: dressing, eating, toileting, bathing. Ambulation: independent ECHO Results (as available) Report: Left ventricular cavity size normal. Left ventricular wall thickness mildly increased. Moderate to severe hypokinesis of the mid to basal inferior wall. Mild distal anteroseptal/anteroapical hypokinesis. Left ventricular ejection fraction is estimated at 45 %. Catheter/pacemaker wire in the right ventricular cavity. Normal right ventricular size and function. Mild left atrial dilatation. Moderate mitral regurgitation. Iarw-wb-lsyurujh aortic stenosis (CAITLYN 1.4 cm2 by continuity with a mean gradient of 13 mmHg). Moderate tricuspid regurgitation. RVSP > 45 mmHg. Exam & Diagnostic Data Vital Signs and I&O Vital Signs Date Time Temp Pulse Resp B/P B/P Pulse O2 O2 Flow FiO2 Mean Ox Delivery Rate 11/29 1253 109/64 11/29 1251 112/64 11/29 1249 97.9 92 18 119/67 97 Room Air 11/29 1139 97.9 96 18 124/57 95 Room Air 11/29 0853 97.8 88 18 115/67 97 Room Air 11/29 0741 Room Air 11/29 0635 89 22 106/70 97 Room Air Intake & Output 11/29 1600 11/29 0800 11/29 0000 11/28 1600 11/28 0800 11/28 0000 Intake Total Output Total Balance Patient 104.326 kg Weight Weight Reported by Patient Measurement Method Physical Exam: General: elderly male, lying in stretcher, no apparent distress HEENT: NCAT, NO JVD, difficult to appreciate carotid pulsations Heart: distant heart sounds, s1s2, RRR, 2/6 systolic murmur at the base Lungs: mild decreased bibasilar breath sounds, fair air entry b/l, scattered faint exp wheezes, no rales/rhonchi Chest: ICD in place Abd: soft, nt Ext: trace b/l LE pitting edema to mid shins, chronic bilateral skin lower extremity changes Labs/Abimael Results: Laboratory Tests 11/29 0644 Chemistry Sodium (137 - 145 mmol/L) 139 Potassium (3.5 - 5.1 mmol/L) 3.8 Chloride (98 - 107 mmol/L) 101 Carbon Dioxide (22 - 30 mmol/L) 30 Anion Gap (5 - 16) 8 BUN (9 - 20 mg/dL) 27 H Creatinine (0.7 - 1.2 mg/dL) 1.7 H Estimated GFR (>60 ml/min) 39 L BUN/Creatinine Ratio (7 - 25 %) 15.9 Glucose (65 - 99 mg/dL) 168 H Calcium (8.4 - 10.2 mg/dL) 9.0 Magnesium (1.6 - 2.3 mg/dL) 1.6 Total Bilirubin (0.2 - 1.3 mg/dL) 0.3 AST (17 - 59 U/L) 23 ALT (21 - 72 U/L) 42 Alkaline Phosphatase (< 127 U/L) 126 Troponin I (<0.11 ng/ml) 0.07 Total Protein (6.3 - 8.2 g/dL) 5.4 L Albumin (3.5 - 5.0 g/dL) 3.2 L Globulin (1.9 - 4.2 gm/dL) 2.2 Albumin/Globulin Ratio (1.1 - 2.2 %) 1.5 Cholesterol (< 200 MG/DL) 141 Coagulation PT (9.4 - 12.5 SEC) 12.5 INR (0.90 - 1.17) 1.15 Hematology CBC w Diff NO MAN DIFF REQ WBC (4.8 - 10.8 /CUMM) 5.8 RBC (4.70 - 6.10 /CUMM) 3.33 L Hgb (14.0 - 18.0 G/DL) 11.4 L Hct (42 - 52 %) 33.5 L MCV (80.0 - 94.0 FL) 100.7 H MCH (27.0 - 31.0 PG) 34.3 H MCHC (33.0 - 37.0 G/DL) 34.1 RDW (11.5 - 14.5 %) 15.6 H Plt Count (130 - 400 /CUMM) 134 MPV (7.4 - 10.4 FL) 7.8 Gran % (42.2 - 75.2 %) 75.4 H Lymphocytes % (20.5 - 51.1 %) 11.1 L Monocytes % (1.7 - 9.3 %) 11.1 H Eosinophils % (0 - 5 %) 2.4 Basophils % (0.0 - 2.0 %) 0 Absolute Granulocytes (1.4 - 6.5 /CUMM) 4.3 Absolute Lymphocytes (1.2 - 3.4 /CUMM) 0.6 L Absolute Monocytes (0.10 - 0.60 /CUMM) 0.6 Absolute Eosinophils (0.0 - 0.7 /CUMM) 0.1 Absolute Basophils (0.0 - 0.2 /CUMM) 0 Diagnostic Data EKG Results Personally reviewed sinus rhythm w PVC, nonspecific IVCD, nonspecific Tw abnormalities grossly unchanged from previous tracing CXR Results Evidence of previous cardiac surgery. AICD in place grossly stable. Progressive airspace disease left base consistent with presumably pneumonitis. Underlying layering pleural effusion suspected. Hazy density right midlung laterally favor summation shadow. No ectopic air. No overt CHF. Heart size remains mildly enlarged. Other Results CT chest 1. Patient's known left lower lobe cancer is unchanged when compared to most recent prior exam. 2. Interval slight decrease in size of the left-sided pleural effusion and associated volume loss and presumed atelectatic changes in the left lower lobe and lingula. 3. Right-sided pleural effusion has completely resolved. Background of mild emphysema remains. 4. Distal thoracic and abdominal aortic aneurysm, unchanged. Abdominal aortic stent graft is partially imaged. 5. Severe atherosclerotic coronary artery calcification. Patient is status post median sternotomy and CABG surgery. 6. Right renal cysts. TTE 11/14/2017 Limited study. Moderate to severely reduced left ventricular systolic function. Mild left ventricular dilatation. Left ventricular wall thickness mildly increased. Moderately abnormal left ventricular ejection fraction estimated at 25-30%. Akinetic inferior wall. Moderate Aortic stenosis. Assessment/Plan Assessment/Plan 1. lightheadedness, transient 2. CAD s/p CABG x 4 (1988) 3. Ischemic cardiomyopathy (LVEF 25-30% 10/2017) s/p Medtronic single chamber ICD 4. PAD w AAA s/p EVAR, b/l carotid stenosis s/p R CEA and L ICA total occlusion 5. mild-moderate aortic stenosis 6. HTN 7. HLD 8. COPD, severe 9. DM 10. hypothyroidism 11. squamous cell lung cancer 12. pleural effuions, resolution of right pleural effion and decrease in left pleural effusion 13. CKD, creatinine at baseline Patient's presentation is atypical for ACS. BP is stable. The patient does not appear to be in acute heart failure on clinical exam. No acute ischemic changes on ECG. Initial troponin negative. No pericardial effusion on CT chest. Etiologies for his lightheadedness include tachyarrhythmia, orthostasis, vasovagal event, less likely neurologic event such as TIA/CVA, however this should be considered given known carotid disease. Med[employer] rep will be called to interrogate ICD. Check orthostatics. Otherwise continue with current medication regimen including aspirin, Plavix, carvedilol, Ranexa, atorvastatin, Lasix. Consult Acknowledgment - Thank you for your consult request.
[2017-11-29 14:46] VITALS: BP 125/70
== END 2017-11-29 17:06 ==
LOC: ERH 06:27
PROVIDERS: Emergency Medicine
DX: R07.9 Chest pain, unspecified (principal); J44.9 Chronic obstructive pulmonary disease, unspecified; E11.9 Type 2 diabetes mellitus without complications; E03.9 Hypothyroidism, unspecified; Z79.82 Long term (current) use of aspirin; Z79.84 Long term (current) use of oral hypoglycemic drugs; Z79.01 Long term (current) use of anticoagulants
CPT/HCPCS: 71045; 93005; 93010; 96372